=== PATIENT | male | born 1965 | race Caucasian/White ===

== ENCOUNTER 2016-10-05 10:52 | Inpatient (IN) | payer OTHER ==
[2016-10-05] MEDS ORDERED: MORPHINE 2 MG/ML SYRINGE IVP STA ×2 (11:57→13:42)
[2016-10-05] MEDS ORDERED: SODIUM CHLORIDE 0.9% 1,000 ML IV ONE (11:57)
[2016-10-05] MEDS ORDERED: ONDANSETRON 4 MG/2 ML VIAL IVP STA (11:57)
[2016-10-05] MEDS ORDERED: ONDANSETRON 4 MG/2 ML VIAL ONE (11:58)
[2016-10-05] MEDS ORDERED: MORPHINE 2 MG/ML SYRINGE ONE ×2 (11:59→13:44)
[2016-10-05] MEDS ORDERED: PIPERACILLIN/TAZOBACTAM 3.375 GM in SODIUM CHLORIDE 0.9% MINIBAG 100 ML IV STA (13:30)
[2016-10-05] MEDS ORDERED: ONDANSETRON 4 MG/2 ML VIAL IVP PRN (14:11)
[2016-10-05] MEDS ORDERED: oxyCODONE 5 MG TABLET PO PRN (15:05)
[2016-10-05] MEDS ORDERED: ACETAMINOPHEN 325 MG TABLET PO PRN (15:05)
[2016-10-05] MEDS: metroNIDAZOLE 500 MG/100 ML 100 ML IV SCH ×2 (16:07→22:33)
[2016-10-05] MEDS: NS W/20 MEQ KCL 1,000 ML IV SCH (16:07)
[2016-10-05] MEDS: MORPHINE 2 MG/ML SYRINGE IVP PRN ×2 (16:15→23:05)
[2016-10-05] MEDS: SODIUM CHLORIDE FLUSH 0.9% 10 ML SYRINGE IVP PRN ×2 (16:15→23:06)
[2016-10-05] MEDS: PIPERACILLIN/TAZOBACTAM 4.5 GM in SODIUM CHLORIDE 0.9% MINIBAG 100 ML IV SCH (18:27)
[2016-10-05] MEDS: SODIUM CHLORIDE FLUSH 0.9% 10 ML SYRINGE IVP SCH (22:34)
[2016-10-06] MEDS: PIPERACILLIN/TAZOBACTAM 4.5 GM in SODIUM CHLORIDE 0.9% MINIBAG 100 ML IV SCH ×3 (00:57→17:42)
[2016-10-06] MEDS: NS W/20 MEQ KCL 1,000 ML IV SCH ×2 (04:28→16:30)
[2016-10-06] MEDS: metroNIDAZOLE 500 MG/100 ML 100 ML IV SCH ×4 (05:16→22:51)
[2016-10-06] MEDS: SODIUM CHLORIDE FLUSH 0.9% 10 ML SYRINGE IVP SCH ×3 (05:21→22:29)
[2016-10-06] MEDS: MORPHINE 2 MG/ML SYRINGE IVP PRN ×3 (05:21→21:02)
[2016-10-06] MEDS: ENOXAPARIN 40 MG/0.4 ML SYRINGE SUBQ SCH (09:17)
[2016-10-06] MEDS: POLYETHYLENE GLYCOL 3350 17 GM PACKET PO SCH (11:02)
[2016-10-07] MEDS: PIPERACILLIN/TAZOBACTAM 4.5 GM in SODIUM CHLORIDE 0.9% MINIBAG 100 ML IV SCH ×3 (00:13→21:27)
[2016-10-07] MEDS: metroNIDAZOLE 500 MG/100 ML 100 ML IV SCH ×4 (04:37→23:02)
[2016-10-07] MEDS: SODIUM CHLORIDE FLUSH 0.9% 10 ML SYRINGE IVP SCH ×3 (05:46→21:28)
[2016-10-07] MEDS: NS W/20 MEQ KCL 1,000 ML IV SCH ×2 (06:59→22:58)
[2016-10-07] MEDS: POLYETHYLENE GLYCOL 3350 17 GM PACKET PO SCH (08:46)
[2016-10-07] MEDS: ENOXAPARIN 40 MG/0.4 ML SYRINGE SUBQ SCH (08:46)
[2016-10-08] MEDS: NS W/20 MEQ KCL 1,000 ML IV SCH (01:22)
[2016-10-08] MEDS: PIPERACILLIN/TAZOBACTAM 4.5 GM in SODIUM CHLORIDE 0.9% MINIBAG 100 ML IV SCH ×2 (03:48→10:07)
[2016-10-08] MEDS: metroNIDAZOLE 500 MG/100 ML 100 ML IV SCH ×2 (03:53→10:58)
[2016-10-08] MEDS: SODIUM CHLORIDE FLUSH 0.9% 10 ML SYRINGE IVP SCH (06:02)
[2016-10-08] MEDS ORDERED: IOPAMIDOL-300 50 ML VIAL PO ONE (09:44)
[2016-10-08] MEDS ORDERED: IOPAMIDOL-300 100 ML VIAL IVP ONE (09:44)
[2016-10-08] MEDS: POLYETHYLENE GLYCOL 3350 17 GM PACKET PO SCH (10:09)
[2016-10-08] MEDS: ENOXAPARIN 40 MG/0.4 ML SYRINGE SUBQ SCH (10:10)
== END 2016-10-08 12:52 | disposition home or self-care (01) | DRG 392 ==
DX: K57.20 Diverticulitis of large intestine with perforation and abscess without bleeding (principal); F17.210 Nicotine dependence, cigarettes, uncomplicated

== ENCOUNTER 2019-07-28 08:45 | Outpatient (CLI) | payer OTHER ==
[2019-07-28 17:26] LABS: HGB - HEMOGLOBIN 15.3 g/dL (14.0-18.0); MEAN CORPUSCULAR HEMOGLOBIN 30.2 pg (27.0-31.0); MEAN CORPUSCULAR HGB CONC 32.8 g/dL (32.0-36.0); MEAN CORPUSCULAR VOLUME 92.1 fL (80.0-94.0); MEAN PLATELET VOLUME 11.5 fL (7.4-11.4); RED BLOOD COUNT 5.07 10^6/uL (4.70-6.10); RED CELL DISTRIBUTION WIDTH 12.8 % (12.0-15.0); WHITE BLOOD COUNT 9.3 x10^3/uL (4.8-10.8)
[2019-07-28 17:46] LABS: ALBUMIN 4.2 g/dL (3.2-5.5); ALBUMIN/GLOBULIN RATIO 1.4 (1.0-2.2); ALKALINE PHOSPHATASE 57 IU/L (42-121); ALT ALANINE AMINOTRANSFERASE 17 IU/L (10-60); AST ASPARTATE AMINOTRANSFERASE 21 IU/L (10-42); BILIRUBIN,TOTAL 1.2 mg/dL (0.2-1.0); BUN - BLOOD UREA NITROGEN 21 mg/dL (6-20); CARBON DIOXIDE - CO2 27 mmol/L (21-32); CHLORIDE 106 mmol/L (101-111); CHOL/HDL RATIO 4.9 (<5.0); CHOLESTEROL 263 mg/dL; CREATININE 0.9 mg/dL (0.6-1.2); GFR - MDRD 88 (>89); GLUCOSE 113 mg/dL (70-100); HDL CHOLESTEROL 54 mg/dL; LDL CHOLESTEROL,CALCULATED 196 mg/dL; LDL/HDL RATIO 3.6 (<3.6); SODIUM 139 mmol/L (135-145); TOTAL PROTEIN 7.1 g/dL (6.7-8.2); VLDL CHOLESTEROL 13 mg/dL
== END 2019-07-28 08:46 | disposition home or self-care (01) ==
LOC: LAB.S 08:45
PROVIDERS: ATTEND Internal Medicine
DX: Z00.00 Encounter for general adult medical examination without abnormal findings (principal); R53.83 Other fatigue
CPT/HCPCS: 36415; 80053; 80061; 83721; 84443; 85027

== ENCOUNTER 2020-09-13 10:36 | Emergency (ER) | payer OTHER ==
[2020-09-13 10:56] LABS: GLUCOSE, URINE (UA) NEGATIVE (NEGATIVE); KETONES,URINE (UA) TRACE mg/dL (NEGATIVE); LEUKOCYTE ESTERASE, URINE NEGATIVE (NEGATIVE); NITRITE,URINE NEGATIVE (NEGATIVE); OCCULT BLOOD,URINE MODERATE (NEGATIVE); PH,URINE 5.5 PH (5.0-7.5); PROTEIN,URINE 30 mg/dL (NEGATIVE); UROBILINOGEN,URINE 1 (NORMAL) E.U./dL (NORMAL)
[2020-09-13 10:59] LABS: BASOPHILS # (AUTO) 0.1 10^3/uL (0.0-0.1); BASOPHILS % (AUTO) 0.5 %; EOSINOPHILS % (AUTO) 0.3 %; HGB - HEMOGLOBIN 17.4 g/dL (14.0-18.0); LYMPHOCYTES # (AUTO) 1.6 10^3/uL (1.5-3.5); LYMPHOCYTES % (AUTO) 14.1 %; MEAN CORPUSCULAR HEMOGLOBIN 30.4 pg (27.0-31.0); MEAN CORPUSCULAR HGB CONC 34.1 g/dL (32.0-36.0); MEAN CORPUSCULAR VOLUME 89.3 fL (80.0-94.0); MEAN PLATELET VOLUME 10.2 fL (7.4-11.4); MONOCYTES # (AUTO) 0.9 10^3/uL (0.0-1.0); MONOCYTES % (AUTO) 7.9 %; NEUTROPHILS # (AUTO) 8.8 10^3/uL (1.5-6.6); NEUTROPHILS % (AUTO) 76.6 %; PLT - PLATELET COUNT 197 10^3/uL (130-450); RED BLOOD COUNT 5.72 10^6/uL (4.70-6.10); RED CELL DISTRIBUTION WIDTH 12.2 % (12.0-15.0); WHITE BLOOD COUNT 11.5 x10^3/uL (4.8-10.8)
[2020-09-13 11:00] LABS: BILIRUBIN,URINE NEGATIVE (NEGATIVE); CLARITY,URINE CLEAR (CLEAR); ICTOTEST,URINE NEGATIVE
[2020-09-13 11:09] LABS: ALBUMIN 4.7 g/dL (3.2-5.5); ALBUMIN/GLOBULIN RATIO 1.4 (1.0-2.2); BILIRUBIN,TOTAL 1.8 mg/dL (0.2-1.0); CALCIUM 9.6 mg/dL (8.5-10.3); CREATININE 1.1 mg/dL (0.6-1.2); TOTAL PROTEIN 8.1 g/dL (6.7-8.2)
[2020-09-13 11:11] LABS: BACTERIA,URINE Few /HPF (None Seen); MUCUS,URINE Moderate Strands; RBC,URINE 0-5 /HPF (0-5); SQUAMOUS EPITHELIAL CELL,UR FEW Squamous (<= Few)
[2020-09-13] MEDS ORDERED: LACTATED RINGERS 1,000 ML IV STA (11:11)
[2020-09-13] MEDS ORDERED: KETOROLAC 15 MG/ML VIAL IVP STA (11:11)
[2020-09-13] MEDS ORDERED: IOVERSOL 320 100 ML VIAL IVP ONE ×2 (11:29→12:04)
--- NOTE | 2020-09-13 12:12 | CT Report ---
PROCEDURE: Abdomen/Pelvis W INDICATIONS: hematuria and abdominal pain CONTRAST: IV CONTRAST: Optiray 320 ml: 100 PO CONTRAST: *NO PO CONTRAST TECHNIQUE: After the administration of intravenous and oral contrast, 5 mm thick sections acquired from the diap hragms to the symphysis. 5 mm thick coronal and sagittal reformats were acquired. For radiation dos e reduction, the following was used: automated exposure control, adjustment of mA and/or kV accordin g to patient size. COMPARISON: CT abdomen pelvis 10/08/2016, 10/05/2016. FINDINGS: Image quality: Excellent. ABDOMEN: Lung bases: There is mild dependent atelectasis bilaterally. Heart size is normal. Solid organs: There is mild focal fatty infiltration in the anterior left hepatic lobe. Gallbladder a ppears within normal limits without calcified gallstones. There is a phrygian cap in the gallbladder fundus. Biliary system is non dilated. The spleen is normal in size. Pancreas enhances normally with out peripancreatic fat stranding or fluid collections. No adrenal nodules. Kidneys demonstrate no h ydronephrosis. Peritoneum and bowel: Small bowel loops demonstrate normal wall thickness and caliber. The appendix i s normal in appearance. There is colonic diverticulosis with associated diverticular wall thickening and inflammatory fat stranding in the sigmoid colon consistent with acute diverticulitis. There is al so associated mild segmental wall thickening in the sigmoid colon consistent with an associated mild colitis. No macroscopic free air or diverticular abscess. No free fluid. Nodes and vessels: No retroperitoneal or mesenteric adenopathy by size criteria. Aorta and inferior vena cava are normal in size. Miscellaneous: No ventral hernias. PELVIS: Genitourinary: The urinary bladder is partially distended. Miscellaneous: No inguinal hernias or adenopathy. Bones: No suspicious bony lesions. No vertebral body compression fractures. IMPRESSION: 1. Sigmoid diverticulitis without evidence of diverticular abscess or macroscopic free air. Reviewed by: Jeffry Rubio MD on 09/13/2020 12:11 PM [facility] Approved by: Jeffry Rubio MD on 09/13/2020 12:11 PM PST Station ID: [id number]
--- NOTE | 2020-09-13 13:10 | ED Physician Documentation ---
PD HPI ABD PAIN - Stated complaint Stated Complaint: ABD PX - Chief complaint Chief Complaint: Abd Pain - History obtained from History obtained from: Patient - Additional information Additional information: 55-year-old man with past medical history of diverticulitis presents with suprapubic and bilateral lower quadrant pain that is nonradiating, gradual in onset over the course of 3 days, moderate severity, aching, nonradiating, associated with stringy stools, most recent this morning. Also with subjective fever and chills with subjective fever T-max 101 2 days ago. Afebrile at home today. Patient denies nausea or vomiting and states that his stools have been solid but stringy with dyschezia. No PSH. Review of Systems Ten Systems: 10 systems reviewed and negative Constitutional: reports: Fever, Chills GI: reports: Abdominal Pain. denies: Nausea, Vomiting : denies: Dysuria PD PAST MEDICAL HISTORY - Past Medical History Past Medical History: Yes Cardiovascular: None Respiratory: None Endocrine/Autoimmune: None GI: Diverticulitis : None HEENT: None Psych: None Musculoskeletal: None Derm: None - Past Surgical History Past Surgical History: Yes Ortho: Arthroscopic surgery HEENT: Tonsil/Adenoidectomy - Present Medications Home Medications: Ambulatory Orders Medication Instructions Recorded Confirmed Ciprofloxacin [Cipro] 500 mg PO Q12H 10 Days #20 tablet 09/13/20 metroNIDAZOLE [Flagyl] 500 mg PO TID 10 Days #30 tablet 09/13/20 - Allergies Allergies/Adverse Reactions: Allergies Allergy/AdvReac Type Severity Reaction Status Date / Time No Known Drug Allergies Allergy Verified 09/13/20 10:41 - Social History Does the pt smoke?: Yes Smoking Status: Current every day smoker PD ED PE NORMAL - Vitals Vital signs reviewed: Yes - General General: Alert and oriented X 3 - HEENT HEENT: Atraumatic, PERRL, EOMI - Neck Neck: Supple, no meningeal sign - Cardiac Cardiac: RRR - Respiratory Respiratory: No respiratory distress, Clear bilaterally - Abdomen Abdomen: Non tender, Non distended - Male Male : Deferred - Rectal Rectal: Deferred - Back Back: No CVA TTP - Derm Derm: Normal color, Warm and dry - Extremities Extremities: No deformity - Neuro Neuro: Alert and oriented X 3 - Psych Psych: Normal mood, Normal affect Results - Vitals Vitals: Vital Signs - 24 hr 09/13/20 10:39 Temperature 36.9 C Heart Rate 84 Respiratory 16 Rate Blood Pressure 155/91 H O2 Saturation 97 Oxygen O2 Source Room air - Labs Labs: Laboratory Tests 09/13/20 09/13/20 09/13/20 10:45 10:53 10:53 WBC 11.5 H RBC 5.72 Hgb 17.4 Hct 51.1 MCV 89.3 MCH 30.4 MCHC 34.1 RDW 12.2 Plt Count 197 MPV 10.2 Neut # (Auto) 8.8 H Lymph # (Auto) 1.6 [place] # (Auto) 0.9 Eos # (Auto) 0.0 Baso # (Auto) 0.1 Absolute Nucleated RBC 0.00 Nucleated RBC % 0.0 Sodium 131 L Potassium 3.6 Chloride 97 L Carbon Dioxide 23 Anion Gap 11.0 BUN 19 Creatinine 1.1 Estimated GFR (MDRD) 70 L Glucose 116 H Calcium 9.6 Total Bilirubin 1.8 H AST 21 ALT 17 Alkaline Phosphatase 66 Total Protein 8.1 Albumin 4.7 Globulin 3.4 Albumin/Globulin Ratio 1.4 Lipase 21 L Urine Color DARK YELLOW Urine Clarity CLEAR Urine pH 5.5 Ur Specific [place] >=1.030 H Urine Protein 30 H Urine Glucose (UA) NEGATIVE Urine Ketones TRACE Urine Occult Blood MODERATE H Urine Nitrite NEGATIVE Urine Bilirubin NEGATIVE Urine Urobilinogen 1 (NORMAL) Ur Leukocyte Esterase NEGATIVE Urine RBC 0-5 Urine WBC 4-5 Ur Squamous Epith Cells FEW Squamous Urine Bacteria Few Urine Mucus Moderate Strands Ur Microscopic Review INDICATED Urine Culture Comments NOT INDICATED PD MEDICAL DECISION MAKING - ED course ED course: 55-year-old man presented with mild case of diverticulitis with mildly elevated white count, normal vital signs, able to tolerate p.o. and with pain controlled with IV Toradol. Given that he was having fevers I will prescribe antibiotics and give strict return precautions. Patient does not currently have a primary doctor but says he will make an appointment with his 's doctor this week. I emphasized that it is important that he repeat his urinalysis and potentially have further testing in order to rule out malignancy. Departure - Departure Disposition: 01 Home, Self Care Clinical Impression: Diverticulitis, Hematuria Condition: Good Instructions: Diverticulitis Dc Prescriptions: Ciprofloxacin [Cipro] 500 mg PO Q12H 10 Days #20 tablet metroNIDAZOLE [Flagyl] 500 mg PO TID 10 Days #30 tablet Comments: You were seen in the emergency department for diverticulitis. You also have blood in your urine which needs to be followed up by your primary doctor. Your CT did not show evidence of stones or cancer but it needs to be investigated further. Take your antibiotics as prescribed and return to the emergency department for any new or worsening symptoms. Follow-up with your primary doctor this week
[2020-09-13 13:27] VITALS: BP 109/75
== END 2020-09-13 13:31 | disposition home or self-care (01) ==
LOC: ED 10:36
DX: K57.32 Diverticulitis of large intestine without perforation or abscess without bleeding (principal); R31.9 Hematuria, unspecified; F17.200 Nicotine dependence, unspecified, uncomplicated
CPT/HCPCS: 36415; 80053; 81001; 81003; 83690; 85025; 87086

== ENCOUNTER 2020-09-13 20:46 | Inpatient (IN) | payer OTHER ==
[2020-09-13] MEDS ORDERED: HYDROmorphone 1 MG/ML CARPUJECT IVP STA (21:14)
[2020-09-13] MEDS ORDERED: ONDANSETRON 4 MG/2 ML VIAL IVP STA (21:14)
[2020-09-13] MEDS ORDERED: SODIUM CHLORIDE 0.9% 1,000 ML IV STA (21:14)
--- NOTE | 2020-09-13 21:21 | ED Physician Documentation ---
History of Present Illness - Stated complaint Stated Complaint: ABD PX/VOMITING - Chief complaint Chief Complaint: Abd Pain - Additonal information Additional information: 55-year-old male return to the emergency department for uncontrolled abdominal pain and vomiting. Seen by my colleague earlier today and underwent a CT scan that showed diverticulitis without evidence of abscess or macroscopic free air. He was discharged with a prescription for Cipro and Flagyl. He reports that he went home and to fill the prescriptions for the medications. Shortly after taking the Cipro he began vomiting uncontrollably. He reports that the vomiting increases the pain in his abdomen therefore he returns to the emergency department. He does report a fever since being discharged home up to 102. Denies any bloody stools. Patient was seen at this hospital in 2017 for similar. At that time a CT scan showed colitis with 3 cm abscess formation. He was admitted to the hospital and managed with IV antibiotics. He did not require surgical drainage. Review of Systems Constitutional: reports: Fever Eyes: reports: Reviewed and negative Ears: reports: Reviewed and negative Nose: reports: Reviewed and negative Throat: reports: Reviewed and negative Cardiac: reports: Reviewed and negative Respiratory: reports: Reviewed and negative GI: reports: Abdominal Pain, Nausea, Vomiting. denies: Bloody / black stool : reports: Reviewed and negative Skin: reports: Reviewed and negative Musculoskeletal: reports: Reviewed and negative PD PAST MEDICAL HISTORY - Past Medical History Cardiovascular: None Respiratory: None Endocrine/Autoimmune: None GI: Diverticulitis : None HEENT: None Psych: None Musculoskeletal: None Derm: None - Past Surgical History Past Surgical History: Yes Ortho: Arthroscopic surgery HEENT: Tonsil/Adenoidectomy - Present Medications Home Medications: Ambulatory Orders Medication Instructions Recorded Confirmed Ciprofloxacin [Cipro] 500 mg PO Q12H 10 Days #20 tablet 09/13/20 metroNIDAZOLE [Flagyl] 500 mg PO TID 10 Days #30 tablet 09/13/20 - Allergies Allergies/Adverse Reactions: Allergies Allergy/AdvReac Type Severity Reaction Status Date / Time No Known Drug Allergies Allergy Verified 09/13/20 20:48 - Social History Does the pt smoke?: Yes Smoking Status: Current every day smoker PD ED PE EXPANDED - General General: Alert, In Pain - Cardiac Cardiac: Regular Rate, Regular Rhythm, Radial strong equal, Cap refill < 2 sec. No: Murmur Present - Respiratory Respiratory: Clear to ausultation caren. No: Distress, Labored - Abdomen Abdomen: Normal Bowel sounds, Tender to palpation (Significant tenderness to the left upper and left lower quadrant with guarding. No rebound) - Derm Derm: Normal color, Warm and dry. No: Rash - Neuro Neuro: Alert and Oriented X 3, CNII-XII intact Results - Vitals Vitals: Vital Signs - 24 hr 09/13/20 09/13/20 09/13/20 20:48 21:10 22:29 Temperature 37.6 C 37.6 C 37.9 C Heart Rate 88 88 77 Respiratory 16 16 18 Rate Blood Pressure 142/98 H 142/98 H 143/84 H O2 Saturation 98 98 98 Oxygen O2 Source Room air - Labs Labs: Laboratory Tests 09/13/20 09/13/20 09/13/20 21:33 21:44 21:54 WBC 17.7 H RBC 5.32 Hgb 15.8 Hct 46.2 MCV 86.8 MCH 29.7 MCHC 34.2 RDW 12.1 Plt Count 180 MPV 10.3 Neut # (Auto) 15.9 H Lymph # (Auto) 0.7 L [place] # (Auto) 1.0 Eos # (Auto) 0.0 Baso # (Auto) 0.1 Absolute Nucleated RBC 0.00 Nucleated RBC % 0.0 Sodium 135 Potassium 3.8 Chloride 100 L Carbon Dioxide 23 Anion Gap 12.0 BUN 24 H Creatinine 1.1 Estimated GFR (MDRD) 70 L Glucose 132 H Lactic Acid 0.9 Calcium 9.0 Total Bilirubin 0.9 AST 18 ALT 18 Alkaline Phosphatase 58 Total Protein 6.9 Albumin 3.8 Globulin 3.1 Albumin/Globulin Ratio 1.2 Lipase 25 - Rads (name of study) CT abd Radiology: Final report received (acute diverticulitis with microperforation, but no abscess. small bowel ileus) PD MEDICAL DECISION MAKING - ED course Complexity details: reviewed old records, reviewed results, re-evaluated patient, considered differential, d/w patient ED course: 55-year-old male return to the emergency department for uncontrolled left lower abdominal pain and vomiting. Seen earlier today for similar and found to have diverticulitis without perforation or abscess. He did fill the prescription for the antibiotics and took the Cipro but then began to vomit which increased his pain. Here on return to the emergency department I initially attempted symptom control with Dilaudid and Zofran. I did repeat his CBC to ensure no rise in white count however unfortunately it did show a new leukocytosis at 17K. lactic acid and chemistry panel do not show not significant abnormalities. Pt does not present as septic. However a repeat Ct of his abdomen is pending. IV cipro and flagyl ordered here in the ED 2204: I have spoken with nocturnal hospitalist Dr. hannah. We discussed the representation for left-sided belly pain accompanied by fevers and new leukocytosis. Patient will likely need to be admitted to the hospital for IV antibiotics and management. 2234: Pt signed out to noc colleague Dr. baker to f/u CT results and ensure no need for surgical consult. However Dr. Hannah has agreed to medicine admission for acute diverticulitis Departure - Departure Disposition: 66 [facility] DC/[facility] Clinical Impression: Diverticulitis
[2020-09-13] MEDS ORDERED: metroNIDAZOLE 500 MG/100 ML 500 MG/100 ML BAG IV ONE (21:27)
[2020-09-13] MEDS ORDERED: CIPROFLOXACIN 400 MG/200 ML 400 MG/200 ML BAG IV STA (21:27)
[2020-09-13 21:35] LABS: BASOPHILS # (AUTO) 0.1 10^3/uL (0.0-0.1); BASOPHILS % (AUTO) 0.3 %; EOSINOPHILS % (AUTO) 0.1 %; HCT - HEMATOCRIT 46.2 % (42.0-52.0); HGB - HEMOGLOBIN 15.8 g/dL (14.0-18.0); LYMPHOCYTES # (AUTO) 0.7 10^3/uL (1.5-3.5); LYMPHOCYTES % (AUTO) 3.8 %; MEAN CORPUSCULAR HEMOGLOBIN 29.7 pg (27.0-31.0); MEAN CORPUSCULAR HGB CONC 34.2 g/dL (32.0-36.0); MEAN CORPUSCULAR VOLUME 86.8 fL (80.0-94.0); MEAN PLATELET VOLUME 10.3 fL (7.4-11.4); MONOCYTES % (AUTO) 5.4 %; NEUTROPHILS # (AUTO) 15.9 10^3/uL (1.5-6.6); PLT - PLATELET COUNT 180 10^3/uL (130-450); RED BLOOD COUNT 5.32 10^6/uL (4.70-6.10); RED CELL DISTRIBUTION WIDTH 12.1 % (12.0-15.0); WHITE BLOOD COUNT 17.7 x10^3/uL (4.8-10.8)
[2020-09-13] MEDS ORDERED: IOVERSOL 320 100 ML VIAL IVP ONE ×2 (22:00→22:32)
[2020-09-13 22:08] LABS: ALBUMIN 3.8 g/dL (3.2-5.5); ALBUMIN/GLOBULIN RATIO 1.2 (1.0-2.2); BILIRUBIN,TOTAL 0.9 mg/dL (0.2-1.0); CREATININE 1.1 mg/dL (0.6-1.2); POTASSIUM 3.8 mmol/L (3.5-5.0); TOTAL PROTEIN 6.9 g/dL (6.7-8.2)
--- NOTE | 2020-09-13 22:47 | HISTORY & PHYSICAL EXAMINATION ---
Chief Complaint - Chief Complaint Chief Complaint: abdominal pain, nausea, vomiting, fever History of Present Illness - Admitted From Admitted From:: [facility] ED - History Obtained From Records Reviewed: yes History obtained from: patient - History of Present Illness HPI Comment/Other: Patient is a 55-year-old male with medical history significant for diverticulitis with perforation 4 years ago. He is not on any other medications. He presented to the ED today morning with Abdominal pain. His symptoms have been going on for the past 2 days. He was diagnosed with diverticulitis after CT scan was done in the ED. He was given a prescription for oral antibiotics. However he went home and the pain got worse. Worsening pain seem to coincide with when he was trying to have a bowel movement. He also experienced a temperature of 102 Fahrenheit and chills. He took the oral antibiotics and within 30 minutes vomited. He returned to the ED this evening where work-up showed that his white blood cell count had increased from 11 up to 17. Repeat CT scan showed sigmoid diverticulitis and a larger area of microperforation. There was no free air noted. It also raised the possibility of ileus but no obstruction. As a result the patient was presented for admission for further treatment. He denies chest pain, dyspnea. History - Past Medical History Cardiovascular: reports: None Respiratory: reports: None Endocrine/Autoimmune: reports: None GI: reports: Diverticulitis : reports: None HEENT: reports: None Psych: reports: None Musculoskeletal: reports: None Derm: reports: None MRSA Hx?: No - Past Surgical History Ortho: reports: Arthroscopic surgery HEENT: reports: Tonsil/Adenoidectomy - Family & Social History Family History Comment/Other: Family history is significant for diabetes, cardiac disease specifically [place] and his mother several different kinds of cancer in her life. This cancers were unspecified. Living arrangement: At home Social History Notes: He was born in [place] [facility], raised in the area, moved out to [place] near [place] for 10 years. He graduated from high school in the small town and went to [employer] for 1 year. He then lived in [place], [place] for a year and went to the [employer]. 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 Eventually he joined [employer]. He smokes every day only 1 pack a day for many years. He also smokes marijuana occasionally Denies any alcohol use. He lives with his , daughter and grandchildren. - POLST Patient has POLST: No POLST Status: Full Code Meds/Allgy - Home Medications Home Medications: Ambulatory Orders Medication Instructions Recorded Confirmed Ciprofloxacin [Cipro] 500 mg PO Q12H 10 Days #20 tablet 09/13/20 metroNIDAZOLE [Flagyl] 500 mg PO TID 10 Days #30 tablet 09/13/20 - Allergies Allergies/Adverse Reactions: Allergies Allergy/AdvReac Type Severity Reaction Status Date / Time No Known Drug Allergies Allergy Verified 09/13/20 20:48 Review of Systems - Constitutional Constitutional: reports: Fever, Chills. denies: Fatigue, Weakness - Eyes Eyes: denies: Pain, Dipolpia - Ears, Nose & Throat Ears, Nose & Throat: denies: Ear pain, Vertigo, Sore throat - Cardiovascular Cariovascular: denies: Irregular heart rate, Palpitations, Chest pain, Edema, Lightheadedness, Syncope, Exertional dyspnea - Respiratory Respiratory: denies: Wheezing, SOB at rest, SOB with exertion - Gastrointestinal Gastrointestinal: reports: Abdominal pain, Nausea, Vomiting. denies: Constipation, Diarrhea, Coffee grounds emesis, Reflux/heartburn - Genitourinary Genitourinary: denies: Dysuria, Frequency, Urgency, Hematuria, Incontinence - Musculoskeletal Musculoskeletal: denies: Muscle pain, Back pain, Muscle aches, Stiffness - Integumentary Integumentary: denies: Rash, Pruritis, Lesions - Neurological Neurological: denies: General weakness, Focal weakness, Headache, Dizziness - Psychiatric Psychiatric: denies: Depression, Anxiety - Endocrine Endocrine: denies: Polyuria, Polydypsia - Hematologic/Lymphatic Hematologic/Lymphatic: denies: Anemia, Bruising, Petechiae Prior Level of Functionality: He is independent of activities of daily living Exam - Vital Signs Vital Signs: Vital Signs x48h Temp Pulse Resp BP Pulse Ox 09/13/20 22:29 37.9 C 77 18 143/84 H 98 09/13/20 21:10 37.6 C 88 16 142/98 H 98 09/13/20 20:48 37.6 C 88 16 142/98 H 98 - Physical Exam General Appearance: positive: Moderate distress, Severe distress Eyes Bilateral: positive: PERRL, EOMI ENT: positive: No signs of dehydration Neck: positive: No JVD, Trachea midline Respiratory: positive: Chest non-tender, No respiratory distress, Breath sounds nml. negative: Wheezes, Rales, Rhonchi Cardiovascular: positive: Regular rate & rhythm, No murmur Abdomen: positive: Nml bowel sounds, Tenderness, Guarding Back: positive: Nml inspection Skin: positive: No rash, Warm, Dry Extremities: positive: Non-tender, Full ROM, Nml appearance, No pedal edema Neurologic/Psychiatric: positive: Oriented x3, Mood/affect nml Conclusion/Plan - Problem List (1) Diverticulitis Conclusion/Plan: Patient failed outpatient management with oral antibiotics of Cipro and Flagyl. Patient's white blood cell count went from 11 earlier today to 17 tonight. Patient had reported temperature of 102F Patient has been started on Cipro and Flagyl IV. IV hydration with normal saline at 100 mils per hour. Pain management with Tylenol, oxycodone and oral Dilaudid. Repeat CT of the abdomen pelvis showed sigmoid diverticulitis with a larger area of microperforation but no free air seen. - Lab Results Fish Bones: 09/14/20 04:36 09/14/20 04:36 Core Measures - Anticipated LOS I expect patient to be DC'd or transferred within 96 hours.: Yes - DVT/VTE - Prophylaxis VTE/DVT Device ordered at admit?: Yes VTE/DVT Prophylaxis med ordered at admit?: Yes
[2020-09-13] MEDS: SODIUM CHLORIDE 0.9% 1,000 ML IV SCH ×2 (23:16→23:28)
[2020-09-14] MEDS: HYDROmorphone 0.5 MG/0.5 ML SYRINGE IVP PRN ×3 (00:28→08:00)
[2020-09-14 01:48] LABS: B. PARAPERTUSSIS- RESP PCR PAN NOT DETECTED; B. PERTUSSIS- RESP PCR PANEL NOT DETECTED; C. PNEUMONIAE- RESP PCR PANEL NOT DETECTED; CORONAVIRUS 229E-RESP PCR NOT DETECTED; CORONAVIRUS HKU1-RESP PCR NOT DETECTED; CORONAVIRUS NL63-RESP PCR NOT DETECTED; CORONAVIRUS OC43-RESP PCR NOT DETECTED; HUMAN METAPNEUMOVIRUS NOT DETECTED; INFLUENZA A- RESP PCR PANEL NOT DETECTED; INFLUENZA B - RESP PCR PANEL NOT DETECTED; M. PNEUMONIAE- RESP PCR PANEL NOT DETECTED; PARAINFLUENZA VIRUS 1 NOT DETECTED; PARAINFLUENZA VIRUS 2 NOT DETECTED; PARAINFLUENZA VIRUS 3 NOT DETECTED; PARAINFLUENZA VIRUS 4 NOT DETECTED; RHINOVIRUS/ENTEROVIRUS NOT DETECTED; RSV- RESP PCR PANEL NOT DETECTED; SARS-CoV-2 -RESP PCR PANEL NOT DETECTED
[2020-09-14] MEDS: SODIUM CHLORIDE FLUSH 0.9% 10 ML SYRINGE IVP SCH ×3 (03:30→16:29)
[2020-09-14] MEDS: ONDANSETRON 4 MG/2 ML VIAL IVP PRN ×2 (03:41→12:30)
[2020-09-14 05:24] LABS: BASOPHILS % (AUTO) 0.3 %; EOSINOPHILS % (AUTO) 0.3 %; HCT - HEMATOCRIT 43.5 % (42.0-52.0); HGB - HEMOGLOBIN 14.4 g/dL (14.0-18.0); LYMPHOCYTES % (AUTO) 6.5 %; MEAN CORPUSCULAR HEMOGLOBIN 29.6 pg (27.0-31.0); MEAN CORPUSCULAR HGB CONC 33.1 g/dL (32.0-36.0); MEAN CORPUSCULAR VOLUME 89.5 fL (80.0-94.0); MEAN PLATELET VOLUME 10.9 fL (7.4-11.4); MONOCYTES % (AUTO) 6.2 %; NEUTROPHILS % (AUTO) 86.2 %; PLT - PLATELET COUNT 157 10^3/uL (130-450); RED BLOOD COUNT 4.86 10^6/uL (4.70-6.10); RED CELL DISTRIBUTION WIDTH 12.2 % (12.0-15.0); WHITE BLOOD COUNT 20.2 x10^3/uL (4.8-10.8)
[2020-09-14 05:38] LABS: CALCIUM 8.5 mg/dL (8.5-10.3); POTASSIUM 3.9 mmol/L (3.5-5.0)
[2020-09-14 05:50] LABS: ABNORMAL LYMPHS % (MANUAL) 0 %; BAND NEUTROPHILS % (MANUAL) 0 %
[2020-09-14 06:17] LABS: LYMPHOCYTES % (MANUAL) 5 %; NEUTROPHILS # (MANUAL) 18.2 10^3/uL (1.5-6.6)
[2020-09-14 06:19] LABS: DIFFERENTIAL COMMENT MANUAL DIFFERENTIAL; PLATELET ESTIMATE, MANUAL NORMAL (130-450,000) (NORMAL); PLATELET MORPHOLOGY NORMAL APPEARANCE (NORMAL); RBC MORPHOLOGY (MULTIPLE) NORMAL APPEARANCE (NORMAL); WBC MORPHOLOGY (MULTIPLE) NORMAL APPEARANCE (NORMAL)
[2020-09-14] MEDS: PANTOPRAZOLE 40 MG TABLET PO SCH (06:42)
[2020-09-14] MEDS: SODIUM CHLORIDE 0.9% 1,000 ML IV SCH ×2 (08:00→20:33)
[2020-09-14] MEDS: metroNIDAZOLE 500 MG/100 ML 500 MG/100 ML BAG IV SCH ×2 (08:10→16:25)
[2020-09-14] MEDS: ENOXAPARIN 40 MG/0.4 ML SYRINGE SUBQ SCH (08:16)
--- NOTE | 2020-09-14 08:37 | CT Report ---
PROCEDURE: Abdomen/Pelvis W INDICATIONS: worsenign pain; r/o rupture CONTRAST: IV CONTRAST: Optiray 320 ml: 100 PO CONTRAST: *NO PO CONTRAST TECHNIQUE: After the administration of nonionic IV contrast, 5 mm thick sections acquired from the diaphragms to the symphysis. 5 mm thick coronal and sagittal reformats were acquired. For radiation dose reducti on, the following was used: automated exposure control, adjustment of mA and/or kV according to jone ent size. COMPARISON: Prior CT on 09/13/2020. Prior CT examinations to 2317, 10/05/2016, and 05/29/2013. FINDINGS: Image quality: Excellent. ABDOMEN: Lung bases: Mild dependent atelectasis can be seen. Heart size is normal. Solid organs: Liver and spleen are normal in size and enhancement. An accessory splenule is inciden tally noted along the hilum of the primary spleen. Gallbladder wall does not appear thickened. B iliary system is non dilated. Pancreas enhances normally. No adrenal nodules. Kidneys demonstrate normal size and enhancement, without hydronephrosis. Peritoneum and bowel: There is abnormal wall thickening seen involving the sigmoid colon, with surro unding moderate inflammatory change. There is extraluminal gas seen just superior to the sigmoid colo n, with a gas collection measuring up to 3.2 cm, as on series 6 image 35. No significant extraluminal fluid can be seen. No well-developed abscess collection can be seen. No other areas of bowel wall thickening can be seen. The appendix is well-seen and is normal. Mildly prominent loops of small bowel are seen. Nodes and vessels: No retroperitoneal or mesenteric adenopathy by size criteria. Aorta and inferior vena cava are normal in size. Atherosclerotic calcification is seen. Miscellaneous: No ventral hernias. PELVIS: Genitourinary: Bladder wall thickness is normal. Miscellaneous: No inguinal hernias or adenopathy. Bones: No suspicious bony lesions. No vertebral body compression fractures. Mild dextroconvex scol iotic curvature is seen. Age-appropriate degenerative changes are seen. IMPRESSION: Worsening sigmoid diverticulitis compared to the examination performed earlier in the day, now with p erforation with extraluminal gas seen. No well-formed abscess collection is seen. Mildly prominent loops of small bowel are seen, which are attributed to ileus. Incidental note is made of: Accessory splenule Mild dextroconvex scoliotic curvature Note: No significant discrepancy from the preliminary report. Reviewed by: Kimani Soto MD on 09/14/2020 7:35 AM [facility] Approved by: Kimani Soto MD on 09/14/2020 7:35 AM [facility] Station ID: [id number]
[2020-09-14] MEDS: CIPROFLOXACIN 400 MG/200 ML 400 MG/200 ML BAG IV SCH ×2 (09:40→21:49)
[2020-09-14] MEDS: oxyCODONE 5 MG TABLET PO PRN ×2 (12:14→17:00)
--- NOTE | 2020-09-14 19:07 | PROVIDER PROGRESS NOTE ---
Assessment/Plan - Problem List (1) Diverticulitis Assessment/Plan: Patient's white blood cell count increased from 17-20 today. We will continue Cipro and Flagyl IV. Continue to monitor CBC. Changed Dilaudid to morphine because patient did not tolerate Dilaudid. If patient's abdominal pain worsens will consider repeating a CT of the abd/pelvis and talking to general surgery - Current Meds Current Meds: Current Medications Generic Name Dose Route Start Last Admin Trade Name Freq PRN Reason Stop Dose Admin Enoxaparin Sodium 40 mg 09/14/20 09:00 09/14/20 08:16 Enoxaparin 40 Mg/0.4 Ml Syringe SUBQ 40 mg DAILY ASHWIN Administration Hydromorphone HCl 0.5 mg 09/13/20 22:36 09/14/20 08:00 Hydromorphone 0.5 Mg/0.5 Ml Syringe IVP 0.5 mg Q2H PRN Administration Pain 8 to 10 Sodium Chloride 1,000 mls @ 100 mls/hr 09/13/20 23:00 09/14/20 19:00 Normal Saline 0.9% IV 100 mls/hr .Q10H ASHWIN Infusion Metronidazole 500 mg in 100 mls @ 100 mls/hr 09/14/20 08:00 09/14/20 17:25 Flagyl 500 Mg/100 Ml IV Infused Q8H ASHWIN Infusion Ciprofloxacin 400 mg in 200 mls @ 200 mls/hr 09/14/20 09:00 09/14/20 10:40 Cipro 400 Mg/200 Ml IV Infused Q12H ASHWIN Infusion Ondansetron HCl 4 mg 09/13/20 22:36 09/14/20 12:30 Ondansetron 4 Mg/2 Ml Vial IVP 4 mg Q6HR PRN Administration Nausea / Vomiting Oxycodone HCl 5 mg 09/13/20 22:36 09/14/20 17:00 Oxycodone 5 Mg Tablet PO 5 mg Q4HR PRN Administration Pain 5 to 7 Pantoprazole Sodium 40 mg 09/14/20 07:00 09/14/20 06:42 Pantoprazole 40 Mg Tablet PO 40 mg QDAC ASHWIN Administration Sodium Chloride 10 ml 09/14/20 01:00 09/14/20 16:29 Sodium Chloride Flush 0.9% 10 Ml Syringe IVP 10 ml 0100,0900,1700 ASHWIN Administration - Lab Result Fish Bone Diagrams: 09/14/20 04:36 09/14/20 04:36 - Additional Planning My Orders: My Active Orders 09/13/20 22:36 Activity Orders [RC] Q2HR IO [RC] IOSHIFT Initiate Bowel Care Protocol [RC] .protocol Initiate Line Care Protocol [RC] QSHIFT Initiate Personal Care Protoco [RC] .protocol Telemetry- [RC] Q4HR Vital Signs [RC] 0800,1600,0000 Acetaminophen [Tylenol] 650 mg PO Q4HR PRN HYDROmorphone 0.5MG SYRINGE [Dilaudid Inj Syringe] 0.5 mg IVP Q2H PRN Ondansetron Inj [Zofran Inj] 4 mg IVP Q6HR PRN Sodium Chloride Flush 0.9% [Normal Saline Flush 0.9%] 10 ml IVP PRN PRN oxyCODONE [Roxicodone] 5 mg PO Q4HR PRN Code Status [OTHERS] Routine Condition of Patient [OTHERS] Routine DVT Prophylaxis [OTHERS] Routine 09/13/20 22:38 SCDs [RC] QSHIFT 09/13/20 23:00 Sodium Chloride 0.9% [Normal Saline 0.9%] 1,000 ml IV 100 mls/hr 09/14/20 01:00 Sodium Chloride Flush 0.9% [Normal Saline Flush 0.9%] 10 ml IVP 0100,0900,1700 09/14/20 07:00 Pantoprazole [Protonix] 40 mg PO QDAC 09/14/20 08:00 metroNIDAZOLE 500 MG/100 ML [Flagyl 500 mg/100 ml] 500 mg in 100 ml IV Q8H 09/14/20 09:00 Ciprofloxacin 400 mg/200 ml [Cipro 400 mg/200 ml] 400 mg in 200 ml IV Q12H Enoxaparin [Lovenox] 40 mg SUBQ DAILY 09/15/20 05:00 BMP - BASIC METABOLIC PANEL [CHEM] DAILYLAB CBC - COMP BLD CT W/AUTO DIFF [HEME] DAILYLAB 09/16/20 05:00 BMP - BASIC METABOLIC PANEL [CHEM] DAILYLAB CBC - COMP BLD CT W/AUTO DIFF [HEME] DAILYLAB 09/17/20 05:00 BMP - BASIC METABOLIC PANEL [CHEM] DAILYLAB CBC - COMP BLD CT W/AUTO DIFF [HEME] DAILYLAB Subjective - Subjective Patient Reports: Other (Patient resting in bed. He rates his pain 8 out of 10. There abdominal pain appears to be worse after a bowel movement. Its mostly in the left lower quadrant. It was reported that he had a low-grade temperature of 100.5 Fahrenheit. He has been nauseous and having dry heaves. On clear liquids.) Objective Vital Signs: Vital Signs - 24 hr 09/13/20 09/13/20 09/13/20 20:48 21:10 22:29 Temperature 37.6 C 37.6 C 37.9 C Heart Rate 88 88 77 Heart Rate [ Monitoring electrodes] Respiratory 16 16 18 Rate Blood Pressure 142/98 H 142/98 H 143/84 H Blood Pressure [Right Brachial artery] O2 Saturation 98 98 98 09/14/20 09/14/20 09/14/20 00:00 00:12 07:35 Temperature 37.7 C 37.7 C 38.1 C H Heart Rate 77 Heart Rate [ 87 80 Monitoring electrodes] Respiratory 18 18 18 Rate Blood Pressure 139/85 H Blood Pressure 128/93 H 158/88 H [Right Brachial artery] O2 Saturation 94 98 97 09/14/20 16:00 Temperature 37.7 C Heart Rate Heart Rate [ 66 Monitoring electrodes] Respiratory 14 Rate Blood Pressure Blood Pressure 118/72 [Right Brachial artery] O2 Saturation 95 Oxygen O2 Source Room air I&O (Last 24 Hrs): Intake and Output Totals x24h 09/12/20 09/13/20 09/14/20 23:59 23:59 23:59 Intake Total 1300 2147.000 Output Total 650 Balance 1300 1497.000 General: Alert, Oriented x3, Moderate distress, Severe distress HEENT: PERRLA, EOMI Neck: No JVD Neuro: Alert, Oriented Times 3 Cardiovascular: Regular rate, Normal S1, Normal S2 Respiratory: Chest non-tender, No respiratory distress, Breath sounds nml Abdomen: Normal bowel sounds, Soft, No tenderness Extremities: No clubbing, No cyanosis, No edema Skin: No rashes - Results Results: Laboratory Results WBC 20.2 x10^3/uL (4.8-10.8) H 09/14/20 04:36 RBC 4.86 10^6/uL (4.70-6.10) 09/14/20 04:36 Hgb 14.4 g/dL (14.0-18.0) 09/14/20 04:36 Hct 43.5 % (42.0-52.0) 09/14/20 04:36 MCV 89.5 fL (80.0-94.0) 09/14/20 04:36 MCH 29.6 pg (27.0-31.0) 09/14/20 04:36 MCHC 33.1 g/dL (32.0-36.0) 09/14/20 04:36 RDW 12.2 % (12.0-15.0) 09/14/20 04:36 Plt Count 157 10^3/uL (130-450) 09/14/20 04:36 MPV 10.9 fL (7.4-11.4) 09/14/20 04:36 Neut # (Auto) Not Reportable 09/14/20 04:36 Lymph # (Auto) Not Reportable 09/14/20 04:36 [place] # (Auto) Not Reportable 09/14/20 04:36 Eos # (Auto) Not Reportable 09/14/20 04:36 Baso # (Auto) Not Reportable 09/14/20 04:36 Absolute Nucleated RBC Not Reportable 09/14/20 04:36 Total Counted 100 09/14/20 04:36 Band Neuts % (Manual) 0 % (0-10) 09/14/20 04:36 Abnorm Lymph % (Manual) 0 % 09/14/20 04:36 Nucleated RBC % Not Reportable 09/14/20 04:36 Neutrophils # (Manual) 18.2 10^3/uL (1.5-6.6) H 09/14/20 04:36 Lymphocytes # (Manual) 1.0 10^3/uL (1.5-3.5) L 09/14/20 04:36 Monocytes # (Manual) 1.0 10^3/uL (0.0-1.0) 09/14/20 04:36 Eosinophils # (Manual) 0.0 10^3/uL (0-0.7) 09/14/20 04:36 Basophils # (Manual) 0.0 10^3/uL (0-0.1) 09/14/20 04:36 Differential Comment MANUAL DIFFERENTIAL 09/14/20 04:36 WBC Morphology NORMAL APPEARANCE (NORMAL) 09/14/20 04:36 Platelet Estimate NORMAL (130-450,000) (NORMAL) 09/14/20 04:36 Platelet Morphology NORMAL APPEARANCE (NORMAL) 09/14/20 04:36 RBC Morph Micro Appear NORMAL APPEARANCE (NORMAL) 09/14/20 04:36 Sodium 133 mmol/L (135-145) L 09/14/20 04:36 Potassium 3.9 mmol/L (3.5-5.0) 09/14/20 04:36 Chloride 100 mmol/L (101-111) L 09/14/20 04:36 Carbon Dioxide 23 mmol/L (21-32) 09/14/20 04:36 Anion Gap 10.0 (6-13) 09/14/20 04:36 BUN 19 mg/dL (6-20) 09/14/20 04:36 Creatinine 1.0 mg/dL (0.6-1.2) 09/14/20 04:36 Estimated GFR (MDRD) 78 (>89) L 09/14/20 04:36 Glucose 126 mg/dL (70-100) H 09/14/20 04:36 Lactic Acid 0.9 mmol/L (0.5-2.2) 09/13/20 21:54 Calcium 8.5 mg/dL (8.5-10.3) 09/14/20 04:36 Total Bilirubin 0.9 mg/dL (0.2-1.0) 09/13/20 21:44 AST 18 IU/L (10-42) 09/13/20 21:44 ALT 18 IU/L (10-60) 09/13/20 21:44 Alkaline Phosphatase 58 IU/L (42-121) 09/13/20 21:44 Total Protein 6.9 g/dL (6.7-8.2) 09/13/20 21:44 Albumin 3.8 g/dL (3.2-5.5) 09/13/20 21:44 Globulin 3.1 g/dL (2.1-4.2) 09/13/20 21:44 Albumin/Globulin Ratio 1.2 (1.0-2.2) 09/13/20 21:44 Lipase 25 U/L (22-51) 09/13/20 21:44 Nasal Adenovirus (PCR) NOT DETECTED 09/14/20 00:00 Nasal B. parapertussis DNA (PCR) NOT DETECTED 09/14/20 00:00 Nasal Coronavir 229E PCR NOT DETECTED 09/14/20 00:00 Nasal Coronavir HKU1 PCR NOT DETECTED 09/14/20 00:00 Nasal Coronavir NL63 PCR NOT DETECTED 09/14/20 00:00 Nasal Coronavir OC43 PCR NOT DETECTED 09/14/20 00:00 Nasal Enterovir/Rhinovir PCR NOT DETECTED 09/14/20 00:00 Nasal Influenza B PCR NOT DETECTED 09/14/20 00:00 Nasal Influenza A PCR NOT DETECTED 09/14/20 00:00 Nasal Parainfluen 1 PCR NOT DETECTED 09/14/20 00:00 Nasal Parainfluen 2 PCR NOT DETECTED 09/14/20 00:00 Nasal Parainfluen 3 PCR NOT DETECTED 09/14/20 00:00 Nasal Parainfluen 4 PCR NOT DETECTED 09/14/20 00:00 Nasal RSV (PCR) NOT DETECTED 09/14/20 00:00 Nasal Screen MRSA (PCR) NEGATIVE (NEGATIVE) 09/14/20 00:35 Nasal B.pertussis DNA PCR NOT DETECTED 09/14/20 00:00 Nasal C.pneumoniae (PCR) NOT DETECTED 09/14/20 00:00 Julio Human Metapneumo PCR NOT DETECTED 09/14/20 00:00 Nasal M.pneumoniae (PCR) NOT DETECTED 09/14/20 00:00 Nasal SARS-CoV-2 (PCR) NOT DETECTED 09/14/20 00:00 - Procedures Procedures: Procedures COLONOSCOPY (05/29/13) ABX Reporting Has patient been on IV antibiotics over the past 48 hours?: Yes
[2020-09-14] MEDS: MORPHINE 2 MG/ML CARPUJECT IVP PRN ×2 (20:24→23:34)
[2020-09-15] MEDS: metroNIDAZOLE 500 MG/100 ML 500 MG/100 ML BAG IV SCH ×3 (00:57→16:08)
[2020-09-15] MEDS: SODIUM CHLORIDE FLUSH 0.9% 10 ML SYRINGE IVP SCH ×3 (02:19→16:08)
[2020-09-15] MEDS: MORPHINE 2 MG/ML CARPUJECT IVP PRN ×2 (02:38→05:34)
[2020-09-15 05:06] LABS: BASOPHILS # (AUTO) 0.1 10^3/uL (0.0-0.1); BASOPHILS % (AUTO) 0.3 %; EOSINOPHILS % (AUTO) 0.2 %; HCT - HEMATOCRIT 41.3 % (42.0-52.0); HGB - HEMOGLOBIN 13.5 g/dL (14.0-18.0); LYMPHOCYTES # (AUTO) 1.7 10^3/uL (1.5-3.5); LYMPHOCYTES % (AUTO) 9.8 %; MEAN CORPUSCULAR HEMOGLOBIN 29.3 pg (27.0-31.0); MEAN CORPUSCULAR HGB CONC 32.7 g/dL (32.0-36.0); MEAN CORPUSCULAR VOLUME 89.6 fL (80.0-94.0); MEAN PLATELET VOLUME 10.6 fL (7.4-11.4); MONOCYTES # (AUTO) 1.1 10^3/uL (0.0-1.0); MONOCYTES % (AUTO) 6.2 %; NEUTROPHILS # (AUTO) 13.9 10^3/uL (1.5-6.6); NEUTROPHILS % (AUTO) 82.9 %; PLT - PLATELET COUNT 148 10^3/uL (130-450); RED BLOOD COUNT 4.61 10^6/uL (4.70-6.10); RED CELL DISTRIBUTION WIDTH 12.3 % (12.0-15.0); WHITE BLOOD COUNT 16.8 x10^3/uL (4.8-10.8)
[2020-09-15 05:18] LABS: CALCIUM 8.5 mg/dL (8.5-10.3); POTASSIUM 3.9 mmol/L (3.5-5.0)
[2020-09-15] MEDS: PANTOPRAZOLE 40 MG TABLET PO SCH (06:04)
--- NOTE | 2020-09-15 06:16 | PROVIDER PROGRESS NOTE ---
Assessment/Plan - Problem List (1) Diverticulitis Assessment/Plan: Patient's white blood cell count improved from 20 down to 16 today. We will continue Cipro and Flagyl. Continue IV hydration With normal saline at 100 mils per hour. Advance diet to full liquids. Continue morphine, oxycodone and or Tylenol for pain. Overall patient is improving clinically. Anticipated discharge home with oral antibiotics in 2 days. - Current Meds Current Meds: Current Medications Generic Name Dose Route Start Last Admin Trade Name Freq PRN Reason Stop Dose Admin Enoxaparin Sodium 40 mg 09/14/20 09:00 09/14/20 08:16 Enoxaparin 40 Mg/0.4 Ml Syringe SUBQ 40 mg DAILY ASHWIN Administration Sodium Chloride 1,000 mls @ 100 mls/hr 09/13/20 23:00 09/15/20 01:57 Normal Saline 0.9% IV 100 mls/hr .Q10H ASHWIN Infusion Metronidazole 500 mg in 100 mls @ 100 mls/hr 09/14/20 08:00 09/15/20 01:57 Flagyl 500 Mg/100 Ml IV Infused Q8H ASHWIN Infusion Ciprofloxacin 400 mg in 200 mls @ 200 mls/hr 09/14/20 09:00 09/14/20 22:49 Cipro 400 Mg/200 Ml IV Infused Q12H ASHWIN Infusion Morphine Sulfate 4 mg 09/14/20 19:53 09/15/20 05:34 Morphine 2 Mg/Ml Carpuject IVP 4 mg Q3HR PRN Administration PAIN Ondansetron HCl 4 mg 09/13/20 22:36 09/14/20 12:30 Ondansetron 4 Mg/2 Ml Vial IVP 4 mg Q6HR PRN Administration Nausea / Vomiting Oxycodone HCl 5 mg 09/13/20 22:36 09/14/20 17:00 Oxycodone 5 Mg Tablet PO 5 mg Q4HR PRN Administration Pain 5 to 7 Pantoprazole Sodium 40 mg 09/14/20 07:00 09/15/20 06:04 Pantoprazole 40 Mg Tablet PO 40 mg QDAC ASHWIN Administration Sodium Chloride 10 ml 09/14/20 01:00 09/15/20 02:19 Sodium Chloride Flush 0.9% 10 Ml Syringe IVP Not Given 0100,0900,1700 ASHWIN - Lab Result Fish Bone Diagrams: 09/15/20 04:55 09/15/20 04:55 - Additional Planning My Orders: My Active Orders 09/14/20 07:00 Pantoprazole [Protonix] 40 mg PO QDAC 09/14/20 08:00 metroNIDAZOLE 500 MG/100 ML [Flagyl 500 mg/100 ml] 500 mg in 100 ml IV Q8H 09/14/20 09:00 Ciprofloxacin 400 mg/200 ml [Cipro 400 mg/200 ml] 400 mg in 200 ml IV Q12H Enoxaparin [Lovenox] 40 mg SUBQ DAILY 09/14/20 19:53 Morphine Inj (Carpuject) [Morphine (Carpuject)] 4 mg IVP Q3HR PRN 09/16/20 05:00 BMP - BASIC METABOLIC PANEL [CHEM] DAILYLAB CBC - COMP BLD CT W/AUTO DIFF [HEME] DAILYLAB 09/17/20 05:00 BMP - BASIC METABOLIC PANEL [CHEM] DAILYLAB CBC - COMP BLD CT W/AUTO DIFF [HEME] DAILYLAB Subjective - Subjective Patient Reports: Other (Patient was resting comfortably in bed at time of exam. He reports feeling much better today. His abdominal pain has subsided. He rates it at 6 out of 10 scale. He denies any other complaints.) Objective Vital Signs: Vital Signs - 24 hr 09/14/20 09/14/20 09/14/20 07:35 16:00 19:30 Temperature 38.1 C H 37.7 C 37.4 C Heart Rate [ Brachial] Heart Rate [ 80 66 66 Monitoring electrodes] Respiratory 18 14 16 Rate Blood Pressure 158/88 H 118/72 117/74 [Right Brachial artery] O2 Saturation 97 95 97 09/14/20 09/15/20 23:36 05:00 Temperature 37.2 C 37.1 C Heart Rate [ 61 62 Brachial] Heart Rate [ Monitoring electrodes] Respiratory 16 16 Rate Blood Pressure 110/65 108/65 [Right Brachial artery] O2 Saturation 94 94 Oxygen O2 Source Room air I&O (Last 24 Hrs): Intake and Output Totals x24h 09/13/20 09/14/20 09/15/20 23:59 23:59 23:59 Intake Total 1300 2552.000 546.667 Output Total 650 Balance 1300 1902.000 546.667 General: Alert, Oriented x3, Mild distress, Moderate distress HEENT: PERRLA, EOMI Neck: Supple, No JVD Neuro: Alert, Oriented Times 3 Cardiovascular: Regular rate, Normal S1, Normal S2 Respiratory: Chest non-tender, No respiratory distress, Breath sounds nml Abdomen: Normal bowel sounds, Soft Extremities: No clubbing, No cyanosis, No edema Skin: No rashes - Results Results: Laboratory Results WBC 16.8 x10^3/uL (4.8-10.8) H 09/15/20 04:55 RBC 4.61 10^6/uL (4.70-6.10) L 09/15/20 04:55 Hgb 13.5 g/dL (14.0-18.0) L 09/15/20 04:55 Hct 41.3 % (42.0-52.0) L 09/15/20 04:55 MCV 89.6 fL (80.0-94.0) 09/15/20 04:55 MCH 29.3 pg (27.0-31.0) 09/15/20 04:55 MCHC 32.7 g/dL (32.0-36.0) 09/15/20 04:55 RDW 12.3 % (12.0-15.0) 09/15/20 04:55 Plt Count 148 10^3/uL (130-450) 09/15/20 04:55 MPV 10.6 fL (7.4-11.4) 09/15/20 04:55 Neut # (Auto) 13.9 10^3/uL (1.5-6.6) H 09/15/20 04:55 Lymph # (Auto) 1.7 10^3/uL (1.5-3.5) 09/15/20 04:55 [place] # (Auto) 1.1 10^3/uL (0.0-1.0) H 09/15/20 04:55 Eos # (Auto) 0.0 10^3/uL (0.0-0.7) 09/15/20 04:55 Baso # (Auto) 0.1 10^3/uL (0.0-0.1) 09/15/20 04:55 Absolute Nucleated RBC 0.00 x10^3/uL 09/15/20 04:55 Total Counted 100 09/14/20 04:36 Band Neuts % (Manual) 0 % (0-10) 09/14/20 04:36 Abnorm Lymph % (Manual) 0 % 09/14/20 04:36 Nucleated RBC % 0.0 /100WBC 09/15/20 04:55 Neutrophils # (Manual) 18.2 10^3/uL (1.5-6.6) H 09/14/20 04:36 Lymphocytes # (Manual) 1.0 10^3/uL (1.5-3.5) L 09/14/20 04:36 Monocytes # (Manual) 1.0 10^3/uL (0.0-1.0) 09/14/20 04:36 Eosinophils # (Manual) 0.0 10^3/uL (0-0.7) 09/14/20 04:36 Basophils # (Manual) 0.0 10^3/uL (0-0.1) 09/14/20 04:36 Differential Comment MANUAL DIFFERENTIAL 09/14/20 04:36 WBC Morphology NORMAL APPEARANCE (NORMAL) 09/14/20 04:36 Platelet Estimate NORMAL (130-450,000) (NORMAL) 09/14/20 04:36 Platelet Morphology NORMAL APPEARANCE (NORMAL) 09/14/20 04:36 RBC Morph Micro Appear NORMAL APPEARANCE (NORMAL) 09/14/20 04:36 Sodium 135 mmol/L (135-145) 09/15/20 04:55 Potassium 3.9 mmol/L (3.5-5.0) 09/15/20 04:55 Chloride 101 mmol/L (101-111) 09/15/20 04:55 Carbon Dioxide 24 mmol/L (21-32) 09/15/20 04:55 Anion Gap 10.0 (6-13) 09/15/20 04:55 BUN 13 mg/dL (6-20) 09/15/20 04:55 Creatinine 1.0 mg/dL (0.6-1.2) 09/15/20 04:55 Estimated GFR (MDRD) 78 (>89) L 09/15/20 04:55 Glucose 117 mg/dL (70-100) H 09/15/20 04:55 Lactic Acid 0.9 mmol/L (0.5-2.2) 09/13/20 21:54 Calcium 8.5 mg/dL (8.5-10.3) 09/15/20 04:55 Total Bilirubin 0.9 mg/dL (0.2-1.0) 09/13/20 21:44 AST 18 IU/L (10-42) 09/13/20 21:44 ALT 18 IU/L (10-60) 09/13/20 21:44 Alkaline Phosphatase 58 IU/L (42-121) 09/13/20 21:44 Total Protein 6.9 g/dL (6.7-8.2) 09/13/20 21:44 Albumin 3.8 g/dL (3.2-5.5) 09/13/20 21:44 Globulin 3.1 g/dL (2.1-4.2) 09/13/20 21:44 Albumin/Globulin Ratio 1.2 (1.0-2.2) 09/13/20 21:44 Lipase 25 U/L (22-51) 09/13/20 21:44 Nasal Adenovirus (PCR) NOT DETECTED 09/14/20 00:00 Nasal B. parapertussis DNA (PCR) NOT DETECTED 09/14/20 00:00 Nasal Coronavir 229E PCR NOT DETECTED 09/14/20 00:00 Nasal Coronavir HKU1 PCR NOT DETECTED 09/14/20 00:00 Nasal Coronavir NL63 PCR NOT DETECTED 09/14/20 00:00 Nasal Coronavir OC43 PCR NOT DETECTED 09/14/20 00:00 Nasal Enterovir/Rhinovir PCR NOT DETECTED 09/14/20 00:00 Nasal Influenza B PCR NOT DETECTED 09/14/20 00:00 Nasal Influenza A PCR NOT DETECTED 09/14/20 00:00 Nasal Parainfluen 1 PCR NOT DETECTED 09/14/20 00:00 Nasal Parainfluen 2 PCR NOT DETECTED 09/14/20 00:00 Nasal Parainfluen 3 PCR NOT DETECTED 09/14/20 00:00 Nasal Parainfluen 4 PCR NOT DETECTED 09/14/20 00:00 Nasal RSV (PCR) NOT DETECTED 09/14/20 00:00 Nasal Screen MRSA (PCR) NEGATIVE (NEGATIVE) 09/14/20 00:35 Nasal B.pertussis DNA PCR NOT DETECTED 09/14/20 00:00 Nasal C.pneumoniae (PCR) NOT DETECTED 09/14/20 00:00 Julio Human Metapneumo PCR NOT DETECTED 09/14/20 00:00 Nasal M.pneumoniae (PCR) NOT DETECTED 09/14/20 00:00 Nasal SARS-CoV-2 (PCR) NOT DETECTED 09/14/20 00:00 - Procedures Procedures: Procedures COLONOSCOPY (05/29/13) ABX Reporting Has patient been on IV antibiotics over the past 48 hours?: Yes
[2020-09-15] MEDS: SACCHAROMYCES BOULARDII 250 MG CAPSULE PO SCH ×2 (08:03→16:08)
[2020-09-15] MEDS: ACETAMINOPHEN 325 MG TABLET PO PRN ×2 (08:03→17:20)
[2020-09-15] MEDS: oxyCODONE 5 MG TABLET PO PRN ×2 (08:03→17:20)
[2020-09-15] MEDS: ENOXAPARIN 40 MG/0.4 ML SYRINGE SUBQ SCH (08:05)
--- NOTE | 2020-09-15 08:30 | PHARMACY PROGRESS NOTE ---
- Best Possible Medication History Admit Date and Time: 09/13/20 2232 Processed by: Pharmacy Medication History completed: Yes Patient Interview: Completed Secondary Source(s): Physician records (PATIENT INTERVIEWED BY PHARMACY. PATIENT REPORTS HE DOES NOT TAKE MAINTENACE HOME MEDICATIONS. ), Pharmacy records, Insurance records As the person ultimately responsible for medication therapy, providers are able to order a medication from an existing home medication list in [facility] via the "Reconcile Routine" prior to Confirmation of that medication by support coordinator. Such practice is discouraged except when the physician, in their clinical judg ment, deems that a medical need exists for a medication without regard to previous use.
[2020-09-15] MEDS: CIPROFLOXACIN 400 MG/200 ML 400 MG/200 ML BAG IV SCH ×2 (09:35→20:35)
[2020-09-15] MEDS: SODIUM CHLORIDE 0.9% 1,000 ML IV SCH ×2 (10:40→20:36)
[2020-09-16] MEDS: ACETAMINOPHEN 325 MG TABLET PO PRN ×3 (00:17→17:49)
[2020-09-16] MEDS: oxyCODONE 5 MG TABLET PO PRN ×3 (00:18→17:49)
[2020-09-16] MEDS: metroNIDAZOLE 500 MG/100 ML 500 MG/100 ML BAG IV SCH ×3 (00:19→16:23)
[2020-09-16] MEDS: SODIUM CHLORIDE FLUSH 0.9% 10 ML SYRINGE IVP SCH ×3 (01:37→16:50)
[2020-09-16 05:21] LABS: BASOPHILS % (AUTO) 0.1 %; EOSINOPHILS # (AUTO) 0.1 10^3/uL (0.0-0.7); EOSINOPHILS % (AUTO) 0.6 %; HCT - HEMATOCRIT 39.7 % (42.0-52.0); HGB - HEMOGLOBIN 13.1 g/dL (14.0-18.0); LYMPHOCYTES # (AUTO) 1.3 10^3/uL (1.5-3.5); LYMPHOCYTES % (AUTO) 9.2 %; MEAN CORPUSCULAR HEMOGLOBIN 29.6 pg (27.0-31.0); MEAN CORPUSCULAR VOLUME 89.8 fL (80.0-94.0); MEAN PLATELET VOLUME 10.8 fL (7.4-11.4); MONOCYTES % (AUTO) 6.7 %; NEUTROPHILS % (AUTO) 82.9 %; PLT - PLATELET COUNT 153 10^3/uL (130-450); RED BLOOD COUNT 4.42 10^6/uL (4.70-6.10); WHITE BLOOD COUNT 14.5 x10^3/uL (4.8-10.8)
[2020-09-16 05:26] LABS: CALCIUM 8.2 mg/dL (8.5-10.3); CREATININE 0.9 mg/dL (0.6-1.2); POTASSIUM 3.7 mmol/L (3.5-5.0)
[2020-09-16] MEDS: PANTOPRAZOLE 40 MG TABLET PO SCH (06:02)
[2020-09-16] MEDS: SACCHAROMYCES BOULARDII 250 MG CAPSULE PO SCH ×2 (08:10→16:23)
[2020-09-16] MEDS: ENOXAPARIN 40 MG/0.4 ML SYRINGE SUBQ SCH (08:11)
[2020-09-16] MEDS: SODIUM CHLORIDE 0.9% 1,000 ML IV SCH ×3 (09:02→22:45)
[2020-09-16] MEDS: CIPROFLOXACIN 400 MG/200 ML 400 MG/200 ML BAG IV SCH ×2 (09:10→20:41)
--- NOTE | 2020-09-16 19:38 | PROVIDER PROGRESS NOTE ---
Subjective - Prog Note Date Prog Note Date: 09/16/20 - Subjective Subjective: Reports feeling well. States his pain is controlled with oxycodone and is about a 3 out of 10. He has been tolerating a diet and was able to get a soft diet for dinner. No vomiting. He is starting to have small bowel movements. Current Medications - Current Medications Current Medications: Active Medications Acetaminophen (Acetaminophen 325 Mg Tablet) 650 mg PO Q4HR PRN PRN Reason: Pain 1 to 4 Last Admin: 09/16/20 17:49 Dose: 650 mg Documented by: Enoxaparin Sodium (Enoxaparin 40 Mg/0.4 Ml Syringe) 40 mg SUBQ DAILY [facility] Last Admin: 09/16/20 08:11 Dose: Not Given Documented by: Sodium Chloride (Normal Saline 0.9%) 1,000 mls @ 100 mls/hr IV .Q10H [facility] Last Infusion: 09/16/20 16:25 Dose: 100 mls/hr Documented by: Metronidazole (Flagyl 500 Mg/100 Ml) 500 mg in 100 mls @ 100 mls/hr IV Q8H [facility] Last Infusion: 09/16/20 17:25 Dose: Infused Documented by: Ciprofloxacin (Cipro 400 Mg/200 Ml) 400 mg in 200 mls @ 200 mls/hr IV Q12H [facility] Last Infusion: 09/16/20 10:43 Dose: Infused Documented by: Morphine Sulfate (Morphine 2 Mg/Ml Carpuject) 4 mg IVP Q3HR PRN PRN Reason: PAIN Last Admin: 09/15/20 05:34 Dose: 4 mg Documented by: Ondansetron HCl (Ondansetron 4 Mg/2 Ml Vial) 4 mg IVP Q6HR PRN PRN Reason: Nausea / Vomiting Last Admin: 09/14/20 12:30 Dose: 4 mg Documented by: Oxycodone HCl (Oxycodone 5 Mg Tablet) 5 mg PO Q4HR PRN PRN Reason: Pain 5 to 7 Last Admin: 09/16/20 17:49 Dose: 5 mg Documented by: Pantoprazole Sodium (Pantoprazole 40 Mg Tablet) 40 mg PO QDAC [facility] Last Admin: 09/16/20 06:02 Dose: 40 mg Documented by: Saccharomyces Boulardii (Saccharomyces Boulardii 250 Mg Capsule) 250 mg PO BIDWM [facility] Last Admin: 09/16/20 16:23 Dose: 250 mg Documented by: Sodium Chloride (Sodium Chloride Flush 0.9% 10 Ml Syringe) 10 ml IVP PRN PRN PRN Reason: NEEDED PER PROVIDER ORDERS Sodium Chloride (Sodium Chloride Flush 0.9% 10 Ml Syringe) 10 ml IVP 0100,0900,1700 [facility] Last Admin: 09/16/20 16:50 Dose: Not Given Documented by: No Known Home Medications 09/15/20 Objective - Vital Signs/Intake & Output Reviewed Vital Signs: Yes Vital Signs: Vital Signs x48h Temp Pulse Resp BP Pulse Ox 09/16/20 17:11 36.9 C 60 16 141/86 H 98 09/16/20 12:59 36.9 C 51 L 18 126/79 96 Intake & Output: Intake & Output 09/13/20 09/14/20 09/15/20 09/16/20 23:59 23:59 23:59 23:59 Intake Total 1300 2552.000 3895.000 4048.333 Output Total 650 Balance 1300 8805.551 8714.000 4048.333 - Objective General Appearance: positive: No acute distress, Alert Eyes Bilateral: positive: Normal inspection, Conjunctivae nml ENT: positive: ENT inspection nml Neck: positive: Nml inspection Cardiovascular: positive: Regular rate & rhythm. negative: Irregularly irre gular, Tachycardia Abdomen: positive: Nml bowel sounds, No distention, Tenderness (Deep palpation left lower quadrant). negative: Guarding, Rebound, Abnml bowel sounds Skin: positive: Warm, Dry Extremities: positive: No pedal edema Neurologic/Psychiatric: positive: Motor nml - Lab Results Fish Bones: 09/16/20 05:02 09/16/20 05:02 Other Labs: Lab Results x24hrs 09/16/20 09/16/20 Range/Units 05:02 05:02 WBC 14.5 H (4.8-10.8) x10^3/uL RBC 4.42 L (4.70-6.10) 10^6/uL Hgb 13.1 L (14.0-18.0) g/dL Hct 39.7 L (42.0-52.0) % MCV 89.8 (80.0-94.0) fL MCH 29.6 (27.0-31.0) pg MCHC 33.0 (32.0-36.0) g/dL RDW 12.0 (12.0-15.0) % Plt Count 153 (130-450) 10^3/uL MPV 10.8 (7.4-11.4) fL Neut # (Auto) 12.0 H (1.5-6.6) 10^3/uL Lymph # (Auto) 1.3 L (1.5-3.5) 10^3/uL [place] # (Auto) 1.0 (0.0-1.0) 10^3/uL Eos # (Auto) 0.1 (0.0-0.7) 10^3/uL Baso # (Auto) 0.0 (0.0-0.1) 10^3/uL Absolute Nucleated RBC 0.00 x10^3/uL Nucleated RBC % 0.0 /100WBC Sodium 135 (135-145) mmol/L Potassium 3.7 (3.5-5.0) mmol/L Chloride 102 (101-111) mmol/L Carbon Dioxide 25 (21-32) mmol/L Anion Gap 8.0 (6-13) BUN 13 (6-20) mg/dL Creatinine 0.9 (0.6-1.2) mg/dL Estimated GFR (MDRD) 88 L (>89) Glucose 115 H (70-100) mg/dL Calcium 8.2 L (8.5-10.3) mg/dL ABX Reporting Has patient been on IV antibiotics over the past 48 hours?: Yes Assessment/Plan - Problem List (1) Diverticulitis of colon with perforation Impression: This was evident on the CT of the abdomen and pelvis on admission. Clinically he is improving. His white count is decreasing. His diet has been advanced and he is tolerating this well. His pain is also improved. We will keep him on ciprofloxacin and Flagyl IV today. His diet has been advanced to a soft diet for dinner and hopefully will continue to tolerate this well. Continue with current pain regimen. Suspect he will be stable for discharge over the next 1 to 2 days. Will likely discuss with general surgery tomorrow regarding follow- up. Qualifiers: Diverticulitis bleeding: without bleeding Qualified Code(s): K57.20 - Diverticulitis of large intestine with perforation and abscess without bleeding
[2020-09-17] MEDS: metroNIDAZOLE 500 MG/100 ML 500 MG/100 ML BAG IV SCH ×2 (00:15→08:32)
[2020-09-17] MEDS: SODIUM CHLORIDE FLUSH 0.9% 10 ML SYRINGE IVP SCH ×3 (00:16→16:59)
[2020-09-17] MEDS: MORPHINE 2 MG/ML CARPUJECT IVP PRN (04:29)
[2020-09-17 05:32] LABS: BASOPHILS % (AUTO) 0.3 %; EOSINOPHILS # (AUTO) 0.2 10^3/uL (0.0-0.7); EOSINOPHILS % (AUTO) 1.2 %; HCT - HEMATOCRIT 39.3 % (42.0-52.0); HGB - HEMOGLOBIN 13.1 g/dL (14.0-18.0); LYMPHOCYTES # (AUTO) 1.5 10^3/uL (1.5-3.5); MEAN CORPUSCULAR HGB CONC 33.3 g/dL (32.0-36.0); MEAN CORPUSCULAR VOLUME 89.9 fL (80.0-94.0); MEAN PLATELET VOLUME 10.8 fL (7.4-11.4); MONOCYTES # (AUTO) 0.9 10^3/uL (0.0-1.0); MONOCYTES % (AUTO) 6.5 %; NEUTROPHILS # (AUTO) 10.6 10^3/uL (1.5-6.6); NEUTROPHILS % (AUTO) 80.5 %; PLT - PLATELET COUNT 183 10^3/uL (130-450); RED BLOOD COUNT 4.37 10^6/uL (4.70-6.10); RED CELL DISTRIBUTION WIDTH 12.2 % (12.0-15.0); WHITE BLOOD COUNT 13.2 x10^3/uL (4.8-10.8)
[2020-09-17 05:47] LABS: CALCIUM 8.3 mg/dL (8.5-10.3); CREATININE 0.8 mg/dL (0.6-1.2); POTASSIUM 3.5 mmol/L (3.5-5.0)
[2020-09-17] MEDS: ACETAMINOPHEN 325 MG TABLET PO PRN ×4 (06:07→21:24)
[2020-09-17] MEDS: PANTOPRAZOLE 40 MG TABLET PO SCH (06:07)
[2020-09-17] MEDS: oxyCODONE 5 MG TABLET PO PRN ×4 (07:36→21:25)
[2020-09-17] MEDS: SACCHAROMYCES BOULARDII 250 MG CAPSULE PO SCH (08:32)
[2020-09-17] MEDS: ENOXAPARIN 40 MG/0.4 ML SYRINGE SUBQ SCH (09:18)
[2020-09-17] MEDS: CIPROFLOXACIN 400 MG/200 ML 400 MG/200 ML BAG IV SCH (09:28)
[2020-09-17] MEDS: SODIUM CHLORIDE 0.9% 1,000 ML IV SCH ×2 (10:38→21:24)
[2020-09-17] MEDS ORDERED: IOVERSOL 320 100 ML VIAL IVP ONE ×2 (11:29→12:10)
--- NOTE | 2020-09-17 11:36 | PROVIDER PROGRESS NOTE ---
Subjective - Prog Note Date Prog Note Date: 09/17/20 - Subjective Pt reports feeling: Worse Subjective: Patient report he had suddenly left lower abdominal pain, worsening Significantly. Patient has no fever. But patient WBC and CRP still elevated. Because the patient increases abdominal pain, order new CAT scan and consulted with surgeon Dr. Collins, and he will see pt at this afternoon. Current Medications - Current Medications Current Medications: Active Medications Acetaminophen (Acetaminophen 325 Mg Tablet) 650 mg PO Q4HR PRN PRN Reason: Pain 1 to 4 Last Admin: 09/17/20 06:07 Dose: 650 mg Documented by: Enoxaparin Sodium (Enoxaparin 40 Mg/0.4 Ml Syringe) 40 mg SUBQ DAILY [facility] Last Admin: 09/17/20 09:18 Dose: Not Given Documented by: Hydralazine HCl (Hydralazine Inj 20 Mg/Ml Vial) 10 mg IVP Q4H PRN PRN Reason: PRN if SBP>170 Sodium Chloride (Normal Saline 0.9%) 1,000 mls @ 100 mls/hr IV .Q10H [facility] Last Admin: 09/17/20 10:38 Dose: 100 mls/hr Documented by: Metronidazole (Flagyl 500 Mg/100 Ml) 500 mg in 100 mls @ 100 mls/hr IV Q8H [facility] Last Infusion: 09/17/20 10:37 Dose: Infused Documented by: Ciprofloxacin (Cipro 400 Mg/200 Ml) 400 mg in 200 mls @ 200 mls/hr IV Q12H [facility] Last Infusion: 09/17/20 10:43 Dose: Infused Documented by: Morphine Sulfate (Morphine 2 Mg/Ml Carpuject) 4 mg IVP Q3HR PRN PRN Reason: PAIN Last Admin: 09/17/20 04:29 Dose: 4 mg Documented by: Ondansetron HCl (Ondansetron 4 Mg/2 Ml Vial) 4 mg IVP Q6HR PRN PRN Reason: Nausea / Vomiting Last Admin: 09/14/20 12:30 Dose: 4 mg Documented by: Oxycodone HCl (Oxycodone 5 Mg Tablet) 5 mg PO Q4HR PRN PRN Reason: Pain 5 to 7 Last Admin: 09/17/20 07:36 Dose: 5 mg Documented by: Pantoprazole Sodium (Pantoprazole 40 Mg Tablet) 40 mg PO QDAC [facility] Last Admin: 09/17/20 06:07 Dose: 40 mg Documented by: Saccharomyces Boulardii (Saccharomyces Boulardii 250 Mg Capsule) 250 mg PO BIDWM [facility] Last Admin: 09/17/20 08:32 Dose: 250 mg Documented by: Sodium Chloride (Sodium Chloride Flush 0.9% 10 Ml Syringe) 10 ml IVP PRN PRN PRN Reason: NEEDED PER PROVIDER ORDERS Sodium Chloride (Sodium Chloride Flush 0.9% 10 Ml Syringe) 10 ml IVP 0100,0900,1700 [facility] Last Admin: 09/17/20 09:18 Dose: Not Given Documented by: No Known Home Medications 09/15/20 Objective - Vital Signs/Intake & Output Vital Signs: Vital Signs x48h Temp Pulse Resp BP BP Pulse Ox 09/17/20 09:00 37.0 C 71 20 166/86 H 99 09/17/20 05:00 36.2 C L 66 16 146/79 H 96 Intake & Output: Intake & Output 09/14/20 09/15/20 09/16/20 09/17/20 23:59 23:59 23:59 23:59 Intake Total 2552.000 3895.000 4510.000 1640 Output Total 650 Balance 8133.873 2853.000 4510.000 1640 - Objective General Appearance: positive: Alert, Mild distress. negative: Lethargic Eyes Bilateral: positive: Normal inspection, PERRL, No lid inflammation ENT: positive: ENT inspection nml, No signs of dehydration. negative: Purulent nasal drainage Neck: positive: Nml inspection, Trachea midline. negative: Thyromegaly, Tracheal deviation Respiratory: positive: Chest non-tender, No respiratory distress, Breath sounds nml. negative: Wheezes, Rales, Rhonchi Cardiovascular: positive: Regular rate & rhythm, No murmur. negative: Tachycardia, Bradycardia, Systolic murmur, Diastolic murmur Peripheral Pulses: 2+ Radial (R), 2+ Radial (L) Abdomen: positive: No organomegaly, Nml bowel sounds, No distention, Tenderness. negative: Guarding, Rebound Back: positive: Nml inspection Skin: positive: Color nml, Warm, Dry. negative: Cyanosis, Diaphoresis, Pallor Extremities: positive: Non-tender, Full ROM, Nml appearance. negative: Calf tenderness Neurologic/Psychiatric: positive: Oriented x3, Motor nml, Sensation nml, Mood/affect nml. negative: Weakness, Sensory loss, Facial droop, Slurred/abnml speech, Depressed mood/affect - Lab Results Fish Bones: 09/17/20 05:15 09/17/20 05:15 Other Labs: Lab Results x24hrs 09/17/20 09/17/20 09/17/20 Range/Units 05:15 05:15 05:15 WBC 13.2 H (4.8-10.8) x10^3/uL RBC 4.37 L (4.70-6.10) 10^6/uL Hgb 13.1 L (14.0-18.0) g/dL Hct 39.3 L (42.0-52.0) % MCV 89.9 (80.0-94.0) fL MCH 30.0 (27.0-31.0) pg MCHC 33.3 (32.0-36.0) g/dL RDW 12.2 (12.0-15.0) % Plt Count 183 (130-450) 10^3/uL MPV 10.8 (7.4-11.4) fL Neut # (Auto) 10.6 H (1.5-6.6) 10^3/uL Lymph # (Auto) 1.5 (1.5-3.5) 10^3/uL [place] # (Auto) 0.9 (0.0-1.0) 10^3/uL Eos # (Auto) 0.2 (0.0-0.7) 10^3/uL Baso # (Auto) 0.0 (0.0-0.1) 10^3/uL Absolute Nucleated RBC 0.00 x10^3/uL Nucleated RBC % 0.0 /100WBC Sodium 140 (135-145) mmol/L Potassium 3.5 (3.5-5.0) mmol/L Chloride 106 (101-111) mmol/L Carbon Dioxide 24 (21-32) mmol/L Anion Gap 10.0 (6-13) BUN 10 (6-20) mg/dL Creatinine 0.8 (0.6-1.2) mg/dL Estimated GFR (MDRD) 101 (>89) Glucose 120 H (70-100) mg/dL Calcium 8.3 L (8.5-10.3) mg/dL Magnesium 2.0 (1.7-2.8) mg/dL C-Reactive Protein 10.8 H (0-1.0) mg/dL ABX Reporting Has patient been on IV antibiotics over the past 48 hours?: Yes Assessment/Plan - Problem List (1) Diverticulitis of colon with perforation Impression: Because patient has worsening abdominal pain, patient still had elevated WBC and elevated CRP. Previous CAT scan of abdomen show diverticulitis with perforation and gas, We will consult with the surgeon and he will see the patient this afternoon, and we will order CAT scan of the abdomen with pelvis, Continue intravenous antibiotics, Continue pain control. Qualifiers: Diverticulitis bleeding: without bleeding Qualified Code(s): K57.20 - Diverticulitis of large intestine with perforation and abscess without bleeding
--- NOTE | 2020-09-17 12:34 | CT Report ---
PROCEDURE: Abdomen/Pelvis W INDICATIONS: abdominal pain, if perforation of diverticulitis CONTRAST: IV CONTRAST: Optiray 320 ml: 100 PO CONTRAST: *NO PO CONTRAST TECHNIQUE: After the administration of nonionic contrast, 5 mm thick sections acquired from the diaphragms to th e symphysis. 5 mm thick coronal and sagittal reformats were acquired. For radiation dose reduction, the following was used: automated exposure control, adjustment of mA and/or kV according to patient size. COMPARISON: Prior CT abdomen/pelvis 09/13/2020. FINDINGS: Image quality: Excellent. ABDOMEN: Lung bases: Lung bases are clear. Heart size is normal. Solid organs: Liver and spleen are normal in size and enhancement. Gallbladder partially contracted Biliary system is non dilated. Pancreas enhances normally. No adrenal nodules. Kidneys demonstra te normal size and enhancement, without hydronephrosis. Peritoneum and bowel: Bowel loops demonstrate normal wall thickness and caliber. No free fluid or a ir. Nodes and vessels: No retroperitoneal or mesenteric adenopathy by size criteria. Aorta and inferior vena cava are normal in size. Miscellaneous: No ventral hernias. PELVIS: Genitourinary: Bladder wall thickness is normal. Miscellaneous: No inguinal hernias or adenopathy. The diverticulitis previously identified within riddhi wiley sigmoid bowel has progressed, worsening, with now contain gas external to the lumen of the sigmoid colon. This gas does not migrate cephalad or anteriorly into the intraperitoneal cavity, but rather is contained within the immediate adjacent soft tissues along the posterior half of the sigmoid colon . A focal abscess is not associated. Increased inflammation within the peritoneal margins is present. Bones: No suspicious bony lesions. No vertebral body compression fractures. IMPRESSION: Worsening sigmoid diverticulitis now with increasing peritoneal inflammation, extralumin al gas contained at the wall of the sigmoid colon, no abscess formation, and worsening peritoneal inf lammation deep within the pelvis. The presence of contained gas within the wall of the sigmoid colon may indicate early necrosis. These findings were immediately called to and discussed in detail with riddhi wiley ordering health care provider, and will contact the surgical team. Reviewed by: Dev Mcmanus MD on 09/17/2020 12:33 PM PST Approved by: Dev Mcmanus MD on 09/17/2020 12:33 PM PST Station ID: [id number]
[2020-09-17] MEDS ORDERED: PIPERACILLIN/TAZOBACTAM 4.5 GM in SODIUM CHLORIDE 0.9% MINIBAG 100 ML IV SCH (14:19)
--- NOTE | 2020-09-17 16:34 | HISTORY & PHYSICAL EXAMINATION ---
Chief Complaint - Chief Complaint Chief Complaint: left lower abdominal pain Abdominal Pain HPI - Admitted From Admitted from: ED - History Obtained From History obtained from: Patient Exam limitations: No limitations - History of Present Illness Severity at the worst: Moderate Pain Quality: Sharp Timing: Gradual onset, Other (worse this am. better this afternoon) HPI Comment/Other: left lower quadrant pain for a few days. worse this am. better this afternoon. he had been eating and drinking. pain started shortly after trying to have a bm. he denies nausea, vomiting, significant tenderness, diffuse abdominal pain. he had similar pain a few years ago and several minor episodes of pain over the last 3 to 4 years. he had a colonoscopy 8 years ago which showed diverticulosis. no polyps PMH/PSH - Past Medical History Cardiovascular: positive: None Respiratory: positive: None Neuro: positive: None Endocrine/Autoimmune: positive: None GI: positive: Diverticulitis : positive: None HEENT: positive: None Psych: positive: None Musculoskeletal: positive: None Derm: positive: None MRSA Hx?: No - Past Surgical History Ortho: positive: Arthroscopic surgery HEENT: positive: Tonsil/Adenoidectomy Social & Family Hx - Social History Does the pt smoke?: Yes Smoking Status: Current every day smoker - POLST Patient has POLST: No POLST Status: Full Code Meds/Allgy - Home Medications Home Medications: Ambulatory Orders Medication Instructions Recorded Confirmed No Known Home Medications 09/15/20 09/15/20 - Allergies Allergies/Adverse Reactions: Allergies Allergy/AdvReac Type Severity Reaction Status Date / Time No Known Drug Allergies Allergy Verified 09/13/20 20:48 Review of Systems - Other Findings Other Findings: 10 pt ros as above otherwise unremarkable Exam - Vital Signs Reviewed Vital Signs: Yes Vital Signs: Vital Signs x48h Temp Pulse Resp BP BP Pulse Ox 09/17/20 16:26 37.2 C 53 L 16 133/77 H 96 09/17/20 13:00 36.8 C 57 L 18 129/68 95 09/17/20 09:00 37.0 C 71 20 166/86 H 99 - Physical Exam General Appearance: positive: No acute distress, Alert, Mild distress Eyes Bilateral: positive: Normal inspection, PERRL, EOMI ENT: positive: No signs of dehydration Neck: positive: No JVD, Trachea midline Respiratory: positive: No respiratory distress Abdomen: positive: No distention, Other (minimal left lower quadrant tenderness to deep palpation) Neurologic/Psychiatric: positive: Oriented x3 Results - Lab Results Fish Bones: 09/17/20 05:15 09/17/20 05:15 Other Lab Results: Lab Results x24hrs 09/17/20 09/17/20 09/17/20 Range/Units 05:15 05:15 05:15 WBC 13.2 H (4.8-10.8) x10^3/uL RBC 4.37 L (4.70-6.10) 10^6/uL Hgb 13.1 L (14.0-18.0) g/dL Hct 39.3 L (42.0-52.0) % MCV 89.9 (80.0-94.0) fL MCH 30.0 (27.0-31.0) pg MCHC 33.3 (32.0-36.0) g/dL RDW 12.2 (12.0-15.0) % Plt Count 183 (130-450) 10^3/uL MPV 10.8 (7.4-11.4) fL Neut # (Auto) 10.6 H (1.5-6.6) 10^3/uL Lymph # (Auto) 1.5 (1.5-3.5) 10^3/uL [place] # (Auto) 0.9 (0.0-1.0) 10^3/uL Eos # (Auto) 0.2 (0.0-0.7) 10^3/uL Baso # (Auto) 0.0 (0.0-0.1) 10^3/uL Absolute Nucleated RBC 0.00 x10^3/uL Nucleated RBC % 0.0 /100WBC Sodium 140 (135-145) mmol/L Potassium 3.5 (3.5-5.0) mmol/L Chloride 106 (101-111) mmol/L Carbon Dioxide 24 (21-32) mmol/L Anion Gap 10.0 (6-13) BUN 10 (6-20) mg/dL Creatinine 0.8 (0.6-1.2) mg/dL Estimated GFR (MDRD) 101 (>89) Glucose 120 H (70-100) mg/dL Calcium 8.3 L (8.5-10.3) mg/dL Magnesium 2.0 (1.7-2.8) mg/dL C-Reactive Protein 10.8 H (0-1.0) mg/dL - Diagnostic Imaging Results Diagnostic Imaging Results: positive: Read independently (diverticulitis with contained rupture) Impression/Plan - Problem List Problem List: diverticulitis with contained rupture. recommend npo, continue present care. close observation. if he develops diffuse pain, not improving plan colectomy and colostomy. We discussed he may develop an abscess needing IR drainage. If he is able to avoid a colostomy this hospitalization he should consider elective sigmoid leila ctomy after inflammation has resolved
[2020-09-17] MEDS: PIPERACILLIN/TAZOBACTAM 3.375 GM in SODIUM CHLORIDE 0.9% MINIBAG 100 ML IV SCH (16:59)
[2020-09-17] MEDS ORDERED: PIPERACILLIN/TAZOBACTAM 3.375 GM in SODIUM CHLORIDE 0.9% MINIBAG 100 ML IV SCH (17:00)
[2020-09-18] MEDS: ACETAMINOPHEN 325 MG TABLET PO PRN ×3 (01:09→16:05)
[2020-09-18] MEDS: PIPERACILLIN/TAZOBACTAM 3.375 GM in SODIUM CHLORIDE 0.9% MINIBAG 100 ML IV SCH ×3 (01:09→17:01)
[2020-09-18] MEDS: oxyCODONE 5 MG TABLET PO PRN ×3 (01:09→16:04)
[2020-09-18] MEDS: SODIUM CHLORIDE FLUSH 0.9% 10 ML SYRINGE IVP SCH ×3 (01:10→17:02)
[2020-09-18 05:10] LABS: BASOPHILS # (AUTO) 0.1 10^3/uL (0.0-0.1); BASOPHILS % (AUTO) 0.4 %; EOSINOPHILS # (AUTO) 0.2 10^3/uL (0.0-0.7); EOSINOPHILS % (AUTO) 1.4 %; HCT - HEMATOCRIT 39.7 % (42.0-52.0); HGB - HEMOGLOBIN 13.3 g/dL (14.0-18.0); LYMPHOCYTES # (AUTO) 1.7 10^3/uL (1.5-3.5); LYMPHOCYTES % (AUTO) 12.5 %; MEAN CORPUSCULAR HEMOGLOBIN 29.8 pg (27.0-31.0); MEAN CORPUSCULAR HGB CONC 33.5 g/dL (32.0-36.0); MEAN PLATELET VOLUME 10.8 fL (7.4-11.4); MONOCYTES # (AUTO) 0.8 10^3/uL (0.0-1.0); MONOCYTES % (AUTO) 5.8 %; NEUTROPHILS # (AUTO) 10.8 10^3/uL (1.5-6.6); NEUTROPHILS % (AUTO) 79.2 %; PLT - PLATELET COUNT 225 10^3/uL (130-450); RED BLOOD COUNT 4.46 10^6/uL (4.70-6.10); RED CELL DISTRIBUTION WIDTH 12.1 % (12.0-15.0); WHITE BLOOD COUNT 13.6 x10^3/uL (4.8-10.8)
[2020-09-18 05:26] LABS: CALCIUM 8.6 mg/dL (8.5-10.3); CRP - C-REACTIVE PROTEIN 8.8 mg/dL (0-1.0); POTASSIUM 3.6 mmol/L (3.5-5.0)
[2020-09-18] MEDS: PANTOPRAZOLE 40 MG TABLET PO SCH (06:33)
[2020-09-18] MEDS: ENOXAPARIN 40 MG/0.4 ML SYRINGE SUBQ SCH (08:26)
[2020-09-18] MEDS: D5.45NS W/20 MEQ KCL 1,000 ML IV SCH ×2 (09:19→21:10)
[2020-09-18] MEDS: KETOROLAC 15 MG/ML VIAL IVP PRN (11:17)
--- NOTE | 2020-09-18 12:04 | PROVIDER PROGRESS NOTE ---
Assessment/Plan - Problem List (1) Diverticulitis of colon with perforation Qualifiers: Diverticulitis bleeding: without bleeding Qualified Code(s): K57.20 - Diverticulitis of large intestine with perforation and abscess without bleeding Assessment/Plan: 2/3 Patient's left low abdominal pain is a slightly reduced, But the patient still had elevated WBC, elevated CRP. I called the surgeon, surgeon state he will assess patient daily by daily, hopefully pt does not need colectomy and colostomy. Continue antibiotics Zosyn, continue NPO with D5 IVF, continue pain control Because patient has worsening abdominal pain, patient still had elevated WBC and elevated CRP. Previous CAT scan of abdomen show diverticulitis with perforation and gas, We will consult with the surgeon and he will see the patient this afternoon, and we will order CAT scan of the abdomen with pelvis, Continue intravenous antibiotics, Continue pain control. - Current Meds Current Meds: Current Medications Generic Name Dose Route Start Last Admin Trade Name Freq PRN Reason Stop Dose Admin Acetaminophen 650 mg 09/13/20 22:36 09/18/20 06:31 Acetaminophen 325 Mg Tablet PO 650 mg Q4HR PRN Administration Pain 1 to 4 Enoxaparin Sodium 40 mg 09/14/20 09:00 09/18/20 08:26 Enoxaparin 40 Mg/0.4 Ml Syringe SUBQ Not Given DAILY [facility] Piperacillin Sod/Tazobactam 100 mls @ 25 mls/hr 09/17/20 17:00 09/18/20 10:54 Sod 3.375 gm/ Sodium Chloride IV 25 mls/hr Q8H [facility] Infusion Potassium Chloride/Dextrose/Sod Cl 1,000 mls @ 100 mls/hr 09/18/20 08:00 09/18/20 11:59 D5.45ns W/20 Meq Kcl IV 100 mls/hr .Q10H [facility] Infusion Ketorolac Tromethamine 15 mg 09/18/20 09:01 09/18/20 11:17 Ketorolac 15 Mg/Ml Vial IVP 09/23/20 09:00 15 mg Q6HR PRN Administration PAIN Ondansetron HCl 4 mg 09/13/20 22:36 09/14/20 12:30 Ondansetron 4 Mg/2 Ml Vial IVP 4 mg Q6HR PRN Administration Nausea / Vomiting Oxycodone HCl 5 mg 09/13/20 22:36 09/18/20 06:31 Oxycodone 5 Mg Tablet PO 5 mg Q4HR PRN Administration Pain 5 to 7 Pantoprazole Sodium 40 mg 09/14/20 07:00 09/18/20 06:33 Pantoprazole 40 Mg Tablet PO 40 mg QDAC [facility] Administration Sodium Chloride 10 ml 09/14/20 01:00 09/18/20 08:26 Sodium Chloride Flush 0.9% 10 Ml Syringe IVP Not Given 0100,0900,1700 [facility] - Lab Result Fish Bone Diagrams: 09/18/20 04:43 09/18/20 04:43 - Additional Planning My Orders: My Active Orders 09/17/20 11:31 hydrALAZINE INJ [Apresoline Inj] 10 mg IVP Q4H PRN 09/17/20 14:12 NPO except Meds [DIET] 09/17/20 17:00 Piperacillin/Tazobactam [Zosyn] 3.375 gm Sodium Chloride 0.9% Minibag [Normal Saline 0.9% Minibag] 100 ml IV Q8H 09/18/20 08:00 D5.45ns W/20 Meq KCl 1,000 ml IV 100 mls/hr 09/18/20 09:01 Ketorolac Inj (15Mg) [Toradol Inj (15Mg)] 15 mg IVP Q6HR PRN 09/19/20 05:00 BMP - BASIC METABOLIC PANEL [CHEM] DAILYLAB CBC - COMP BLD CT W/AUTO DIFF [HEME] DAILYLAB CRP - C-REACTIVE PROTEIN [CHEM] DAILYLAB 09/20/20 05:00 BMP - BASIC METABOLIC PANEL [CHEM] DAILYLAB CBC - COMP BLD CT W/AUTO DIFF [HEME] DAILYLAB CRP - C-REACTIVE PROTEIN [CHEM] DAILYLAB 09/21/20 05:00 BMP - BASIC METABOLIC PANEL [CHEM] DAILYLAB CBC - COMP BLD CT W/AUTO DIFF [HEME] DAILYLAB CRP - C-REACTIVE PROTEIN [CHEM] DAILYLAB 09/22/20 05:00 BMP - BASIC METABOLIC PANEL [CHEM] DAILYLAB CBC - COMP BLD CT W/AUTO DIFF [HEME] DAILYLAB CRP - C-REACTIVE PROTEIN [CHEM] DAILYLAB 09/23/20 05:00 BMP - BASIC METABOLIC PANEL [CHEM] DAILYLAB CBC - COMP BLD CT W/AUTO DIFF [HEME] DAILYLAB CRP - C-REACTIVE PROTEIN [CHEM] DAILYLAB Subjective - Subjective Patient Reports: Feeling Better Objective Vital Signs: Vital Signs - 24 hr 09/17/20 09/17/20 09/17/20 13:00 16:26 20:07 Temperature 36.8 C 37.2 C 36.9 C Heart Rate [ 57 L 53 L 58 L Brachial] Respiratory 18 16 16 Rate Blood Pressure 129/68 [Left Brachial artery] Blood Pressure 133/77 H 126/67 [Right Brachial artery] O2 Saturation 95 96 96 09/17/20 09/18/20 09/18/20 23:35 04:35 09:00 Temperature 36.9 C 36.5 C 36.8 C Heart Rate [ 53 L 51 L 58 L Brachial] Respiratory 16 16 18 Rate Blood Pressure [Left Brachial artery] Blood Pressure 139/86 H 138/79 H 148/88 H [Right Brachial artery] O2 Saturation 96 97 96 Oxygen O2 Source Room air I&O (Last 24 Hrs): Intake and Output Totals x24h 09/16/20 09/17/20 09/18/20 23:59 23:59 23:59 Intake Total 4510.000 3080 1206.666 Output Total 500 Balance 4510.000 3080 706.666 General: Alert, Oriented x3, Cooperative, No acute distress HEENT: Atraumatic, PERRLA Neck: Supple Lymphatic: no adenopathy Neuro: Alert, Non Focal, Oriented Times 3 Cardiovascular: Regular rate, Normal S1, Normal S2 Respiratory: Chest non-tender, No respiratory distress, Breath sounds nml Abdomen: Normal bowel sounds, Soft, Other (mild tenderness on left lower abdomen, otherwise pt's abdomen is soft, good bowel sound) Extremities: Normal pulses Skin: No breakdown - Results Results: Laboratory Results WBC 13.6 x10^3/uL (4.8-10.8) H 09/18/20 04:43 RBC 4.46 10^6/uL (4.70-6.10) L 09/18/20 04:43 Hgb 13.3 g/dL (14.0-18.0) L 09/18/20 04:43 Hct 39.7 % (42.0-52.0) L 09/18/20 04:43 MCV 89.0 fL (80.0-94.0) 09/18/20 04:43 MCH 29.8 pg (27.0-31.0) 09/18/20 04:43 MCHC 33.5 g/dL (32.0-36.0) 09/18/20 04:43 RDW 12.1 % (12.0-15.0) 09/18/20 04:43 Plt Count 225 10^3/uL (130-450) 09/18/20 04:43 MPV 10.8 fL (7.4-11.4) 09/18/20 04:43 Neut # (Auto) 10.8 10^3/uL (1.5-6.6) H 09/18/20 04:43 Lymph # (Auto) 1.7 10^3/uL (1.5-3.5) 09/18/20 04:43 [place] # (Auto) 0.8 10^3/uL (0.0-1.0) 09/18/20 04:43 Eos # (Auto) 0.2 10^3/uL (0.0-0.7) 09/18/20 04:43 Baso # (Auto) 0.1 10^3/uL (0.0-0.1) 09/18/20 04:43 Absolute Nucleated RBC 0.00 x10^3/uL 09/18/20 04:43 Total Counted 100 09/14/20 04:36 Band Neuts % (Manual) 0 % (0-10) 09/14/20 04:36 Abnorm Lymph % (Manual) 0 % 09/14/20 04:36 Nucleated RBC % 0.0 /100WBC 09/18/20 04:43 Neutrophils # (Manual) 18.2 10^3/uL (1.5-6.6) H 09/14/20 04:36 Lymphocytes # (Manual) 1.0 10^3/uL (1.5-3.5) L 09/14/20 04:36 Monocytes # (Manual) 1.0 10^3/uL (0.0-1.0) 09/14/20 04:36 Eosinophils # (Manual) 0.0 10^3/uL (0-0.7) 09/14/20 04:36 Basophils # (Manual) 0.0 10^3/uL (0-0.1) 09/14/20 04:36 Differential Comment MANUAL DIFFERENTIAL 09/14/20 04:36 WBC Morphology NORMAL APPEARANCE (NORMAL) 09/14/20 04:36 Platelet Estimate NORMAL (130-450,000) (NORMAL) 09/14/20 04:36 Platelet Morphology NORMAL APPEARANCE (NORMAL) 09/14/20 04:36 RBC Morph Micro Appear NORMAL APPEARANCE (NORMAL) 09/14/20 04:36 Sodium 140 mmol/L (135-145) 09/18/20 04:43 Potassium 3.6 mmol/L (3.5-5.0) 09/18/20 04:43 Chloride 107 mmol/L (101-111) 09/18/20 04:43 Carbon Dioxide 25 mmol/L (21-32) 09/18/20 04:43 Anion Gap 8.0 (6-13) 09/18/20 04:43 BUN 9 mg/dL (6-20) 09/18/20 04:43 Creatinine 1.0 mg/dL (0.6-1.2) 09/18/20 04:43 Estimated GFR (MDRD) 78 (>89) L 09/18/20 04:43 Glucose 114 mg/dL (70-100) H 09/18/20 04:43 Lactic Acid 0.9 mmol/L (0.5-2.2) 09/13/20 21:54 Calcium 8.6 mg/dL (8.5-10.3) 09/18/20 04:43 Magnesium 2.0 mg/dL (1.7-2.8) 09/17/20 05:15 Total Bilirubin 0.9 mg/dL (0.2-1.0) 09/13/20 21:44 AST 18 IU/L (10-42) 09/13/20 21:44 ALT 18 IU/L (10-60) 09/13/20 21:44 Alkaline Phosphatase 58 IU/L (42-121) 09/13/20 21:44 C-Reactive Protein 8.8 mg/dL (0-1.0) H 09/18/20 04:43 Total Protein 6.9 g/dL (6.7-8.2) 09/13/20 21:44 Albumin 3.8 g/dL (3.2-5.5) 09/13/20 21:44 Globulin 3.1 g/dL (2.1-4.2) 09/13/20 21:44 Albumin/Globulin Ratio 1.2 (1.0-2.2) 09/13/20 21:44 Lipase 25 U/L (22-51) 09/13/20 21:44 Nasal Adenovirus (PCR) NOT DETECTED 09/14/20 00:00 Nasal B. parapertussis DNA (PCR) NOT DETECTED 09/14/20 00:00 Nasal Coronavir 229E PCR NOT DETECTED 09/14/20 00:00 Nasal Coronavir HKU1 PCR NOT DETECTED 09/14/20 00:00 Nasal Coronavir NL63 PCR NOT DETECTED 09/14/20 00:00 Nasal Coronavir OC43 PCR NOT DETECTED 09/14/20 00:00 Nasal Enterovir/Rhinovir PCR NOT DETECTED 09/14/20 00:00 Nasal Influenza B PCR NOT DETECTED 09/14/20 00:00 Nasal Influenza A PCR NOT DETECTED 09/14/20 00:00 Nasal Parainfluen 1 PCR NOT DETECTED 09/14/20 00:00 Nasal Parainfluen 2 PCR NOT DETECTED 09/14/20 00:00 Nasal Parainfluen 3 PCR NOT DETECTED 09/14/20 00:00 Nasal Parainfluen 4 PCR NOT DETECTED 09/14/20 00:00 Nasal RSV (PCR) NOT DETECTED 09/14/20 00:00 Nasal Screen MRSA (PCR) NEGATIVE (NEGATIVE) 09/14/20 00:35 Nasal B.pertussis DNA PCR NOT DETECTED 09/14/20 00:00 Nasal C.pneumoniae (PCR) NOT DETECTED 09/14/20 00:00 Julio Human Metapneumo PCR NOT DETECTED 09/14/20 00:00 Nasal M.pneumoniae (PCR) NOT DETECTED 09/14/20 00:00 Nasal SARS-CoV-2 (PCR) NOT DETECTED 09/14/20 00:00 Stl C. diff Tox B Gene NEGATIVE (NEGATIVE) 09/15/20 11:04 - Procedures Procedures: Procedures COLONOSCOPY (05/29/13) ABX Reporting Has patient been on IV antibiotics over the past 48 hours?: Yes Current Medications - Current Medications Current Medications: Active Medications Acetaminophen (Acetaminophen 325 Mg Tablet) 650 mg PO Q4HR PRN PRN Reason: Pain 1 to 4 Last Admin: 09/18/20 06:31 Dose: 650 mg Documented by: Enoxaparin Sodium (Enoxaparin 40 Mg/0.4 Ml Syringe) 40 mg SUBQ DAILY [facility] Last Admin: 09/18/20 08:26 Dose: Not Given Documented by: Hydralazine HCl (Hydralazine Inj 20 Mg/Ml Vial) 10 mg IVP Q4H PRN PRN Reason: PRN if SBP>170 Piperacillin Sod/Tazobactam (Sod 3.375 gm/ Sodium Chloride) 100 mls @ 25 mls/hr IV Q8H [facility] Last Infusion: 09/18/20 10:54 Dose: 25 mls/hr Documented by: Potassium Chloride/Dextrose/Sod Cl (D5.45ns W/20 Meq Kcl) 1,000 mls @ 100 mls/hr IV .Q10H [facility] Last Infusion: 09/18/20 11:59 Dose: 100 mls/hr Documented by: Ketorolac Tromethamine (Ketorolac 15 Mg/Ml Vial) 15 mg IVP Q6HR PRN PRN Reason: PAIN Stop: 09/23/20 09:00 Last Admin: 09/18/20 11:17 Dose: 15 mg Documented by: Ondansetron HCl (Ondansetron 4 Mg/2 Ml Vial) 4 mg IVP Q6HR PRN PRN Reason: Nausea / Vomiting Last Admin: 09/14/20 12:30 Dose: 4 mg Documented by: Oxycodone HCl (Oxycodone 5 Mg Tablet) 5 mg PO Q4HR PRN PRN Reason: Pain 5 to 7 Last Admin: 09/18/20 06:31 Dose: 5 mg Documented by: Pantoprazole Sodium (Pantoprazole 40 Mg Tablet) 40 mg PO QDAC [facility] Last Admin: 09/18/20 06:33 Dose: 40 mg Documented by: Sodium Chloride (Sodium Chloride Flush 0.9% 10 Ml Syringe) 10 ml IVP PRN PRN PRN Reason: NEEDED PER PROVIDER ORDERS Sodium Chloride (Sodium Chloride Flush 0.9% 10 Ml Syringe) 10 ml IVP 0 100,0900,1700 [facility] Last Admin: 09/18/20 08:26 Dose: Not Given Documented by: No Known Home Medications 09/15/20
--- NOTE | 2020-09-18 12:21 | PROVIDER PROGRESS NOTE ---
Subjective - Prog Note Date Prog Note Date: 09/18/20 - Subjective Pt reports feeling: Improved (He has minimal pain. Passing gas and small bm today.) Objective - Vital Signs/Intake & Output Vital Signs: Vital Signs x48h Temp Pulse Resp BP Pulse Ox 09/18/20 09:00 36.8 C 58 L 18 148/88 H 96 09/18/20 04:35 36.5 C 51 L 16 138/79 H 97 Intake & Output: Intake & Output 09/15/20 09/16/20 09/17/20 09/18/20 23:59 23:59 23:59 23:59 Intake Total 3895.000 4510.000 3080 1206.666 Output Total 500 Balance 3895.000 4510.000 3080 706.666 - Objective General Appearance: positive: No acute distress, Alert Eyes Bilateral: positive: Normal inspection, PERRL, EOMI ENT: positive: No signs of dehydration Neck: positive: No JVD, Trachea midline Respiratory: positive: No respiratory distress Abdomen: positive: No distention, Other (soft. minimal left lower quadrant tenderness) Neurologic/Psychiatric: positive: Oriented x3 - Lab Results Fish Bones: 09/18/20 04:43 09/18/20 04:43 Other Labs: Lab Results x24hrs 09/18/20 09/18/20 Range/Units 04:43 04:43 WBC 13.6 H (4.8-10.8) x10^3/uL RBC 4.46 L (4.70-6.10) 10^6/uL Hgb 13.3 L (14.0-18.0) g/dL Hct 39.7 L (42.0-52.0) % MCV 89.0 (80.0-94.0) fL MCH 29.8 (27.0-31.0) pg MCHC 33.5 (32.0-36.0) g/dL RDW 12.1 (12.0-15.0) % Plt Count 225 (130-450) 10^3/uL MPV 10.8 (7.4-11.4) fL Neut # (Auto) 10.8 H (1.5-6.6) 10^3/uL Lymph # (Auto) 1.7 (1.5-3.5) 10^3/uL [place] # (Auto) 0.8 (0.0-1.0) 10^3/uL Eos # (Auto) 0.2 (0.0-0.7) 10^3/uL Baso # (Auto) 0.1 (0.0-0.1) 10^3/uL Absolute Nucleated RBC 0.00 x10^3/uL Nucleated RBC % 0.0 /100WBC Sodium 140 (135-145) mmol/L Potassium 3.6 (3.5-5.0) mmol/L Chloride 107 (101-111) mmol/L Carbon Dioxide 25 (21-32) mmol/L Anion Gap 8.0 (6-13) BUN 9 (6-20) mg/dL Creatinine 1.0 (0.6-1.2) mg/dL Estimated GFR (MDRD) 78 L (>89) Glucose 114 H (70-100) mg/dL Calcium 8.6 (8.5-10.3) mg/dL C-Reactive Protein 8.8 H (0-1.0) mg/dL Assessment/Plan - Problem List (1) Diverticulitis of colon with perforation Impression: He feels better than yesterday. He has minimal pain and tenderness. Afebrile. WBC 13. Passing gas and small bm. Continue npo today close observation. will follow daily. perhaps clears tomorrow. Qualifiers: Diverticulitis bleeding: without bleeding Qualified Code(s): K57.20 - Diverticulitis of large intestine with perforation and abscess without bleeding
[2020-09-19] MEDS: PIPERACILLIN/TAZOBACTAM 3.375 GM in SODIUM CHLORIDE 0.9% MINIBAG 100 ML IV SCH ×3 (00:10→17:28)
[2020-09-19] MEDS: SODIUM CHLORIDE FLUSH 0.9% 10 ML SYRINGE IVP SCH ×3 (00:11→17:28)
[2020-09-19] MEDS: KETOROLAC 15 MG/ML VIAL IVP PRN ×2 (00:21→21:15)
[2020-09-19] MEDS: SODIUM CHLORIDE FLUSH 0.9% 10 ML SYRINGE IVP PRN (05:18)
[2020-09-19] MEDS: D5.45NS W/20 MEQ KCL 1,000 ML IV SCH (05:18)
[2020-09-19 05:23] LABS: BASOPHILS # (AUTO) 0.1 10^3/uL (0.0-0.1); BASOPHILS % (AUTO) 0.5 %; EOSINOPHILS # (AUTO) 0.2 10^3/uL (0.0-0.7); EOSINOPHILS % (AUTO) 1.1 %; HCT - HEMATOCRIT 44.5 % (42.0-52.0); HGB - HEMOGLOBIN 14.5 g/dL (14.0-18.0); LYMPHOCYTES # (AUTO) 2.1 10^3/uL (1.5-3.5); LYMPHOCYTES % (AUTO) 14.1 %; MEAN CORPUSCULAR HEMOGLOBIN 29.3 pg (27.0-31.0); MEAN CORPUSCULAR HGB CONC 32.6 g/dL (32.0-36.0); MEAN CORPUSCULAR VOLUME 89.9 fL (80.0-94.0); MEAN PLATELET VOLUME 10.8 fL (7.4-11.4); MONOCYTES # (AUTO) 0.7 10^3/uL (0.0-1.0); MONOCYTES % (AUTO) 4.6 %; NEUTROPHILS # (AUTO) 11.6 10^3/uL (1.5-6.6); NEUTROPHILS % (AUTO) 78.8 %; PLT - PLATELET COUNT 276 10^3/uL (130-450); RED BLOOD COUNT 4.95 10^6/uL (4.70-6.10); RED CELL DISTRIBUTION WIDTH 12.1 % (12.0-15.0); WHITE BLOOD COUNT 14.7 x10^3/uL (4.8-10.8)
[2020-09-19] MEDS: PANTOPRAZOLE 40 MG TABLET PO SCH (05:28)
[2020-09-19 05:47] LABS: CALCIUM 8.9 mg/dL (8.5-10.3); CREATININE 1.1 mg/dL (0.6-1.2); CRP - C-REACTIVE PROTEIN 7.5 mg/dL (0-1.0); POTASSIUM 4.6 mmol/L (3.5-5.0)
[2020-09-19] MEDS: ACETAMINOPHEN 325 MG TABLET PO PRN ×2 (08:24→15:43)
[2020-09-19] MEDS: ENOXAPARIN 40 MG/0.4 ML SYRINGE SUBQ SCH (08:25)
[2020-09-19] MEDS: oxyCODONE 5 MG TABLET PO PRN ×2 (08:25→15:44)
[2020-09-19] MEDS: DEXTROSE 5%-0.45% NACL 1,000 ML IV SCH ×2 (08:25→19:14)
--- NOTE | 2020-09-19 09:52 | PROVIDER PROGRESS NOTE ---
Subjective - Subjective Pt reports feeling: Improved (passing gas. no nausea. minimal pain) Objective - Vital Signs/Intake & Output Reviewed Vital Signs: Yes Vital Signs: Vital Signs x48h Temp Pulse Resp BP Pulse Ox 09/19/20 08:49 36.7 C 54 L 14 146/80 H 95 09/19/20 05:00 36.7 C 52 L 16 153/84 H 98 Intake & Output: Intake & Output 09/16/20 09/17/20 09/18/20 09/19/20 23:59 23:59 23:59 23:59 Intake Total 4510.000 3080 2300.000 1266.663 Output Total 1350 1300 Balance 4510.000 3080 950.000 -33.337 - Objective General Appearance: positive: No acute distress, Alert Eyes Bilateral: positive: Normal inspection, PERRL ENT: positive: No signs of dehydration Respiratory: positive: No respiratory distress Abdomen: positive: No distention, Other (minimal left lower quadrant tenderness) - Lab Results Fish Bones: 09/19/20 04:46 09/19/20 04:46 Other Labs: Lab Results x24hrs 09/19/20 09/19/20 Range/Units 04:46 04:46 WBC 14.7 H (4.8-10.8) x10^3/uL RBC 4.95 (4.70-6.10) 10^6/uL Hgb 14.5 (14.0-18.0) g/dL Hct 44.5 (42.0-52.0) % MCV 89.9 (80.0-94.0) fL MCH 29.3 (27.0-31.0) pg MCHC 32.6 (32.0-36.0) g/dL RDW 12.1 (12.0-15.0) % Plt Count 276 (130-450) 10^3/uL MPV 10.8 (7.4-11.4) fL Neut # (Auto) 11.6 H (1.5-6.6) 10^3/uL Lymph # (Auto) 2.1 (1.5-3.5) 10^3/uL [place] # (Auto) 0.7 (0.0-1.0) 10^3/uL Eos # (Auto) 0.2 (0.0-0.7) 10^3/uL Baso # (Auto) 0.1 (0.0-0.1) 10^3/uL Absolute Nucleated RBC 0.00 x10^3/uL Nucleated RBC % 0.0 /100WBC Sodium 140 (135-145) mmol/L Potassium 4.6 (3.5-5.0) mmol/L Chloride 105 (101-111) mmol/L Carbon Dioxide 25 (21-32) mmol/L Anion Gap 10.0 (6-13) BUN 8 (6-20) mg/dL Creatinine 1.1 (0.6-1.2) mg/dL Estimated GFR (MDRD) 70 L (>89) Glucose 129 H (70-100) mg/dL Calcium 8.9 (8.5-10.3) mg/dL C-Reactive Protein 7.5 H (0-1.0) mg/dL Assessment/Plan - Problem List (1) Diverticulitis of colon with perforation Impression: clinically he is doing well. No fever, distension. Minimal pain. No peritonitis. Plan clears. We again discussed he might develop an abscess needing IR drainage. If not improving daily plan ct scan during this hospitalization or as an outpatient in 5 to 7 days Will continue to see daily until d/c Qualifiers: Diverticulitis bleeding: without bleeding Qualified Code(s): K57.20 - Diverticulitis of large intestine with perforation and abscess without bleeding
--- NOTE | 2020-09-19 14:48 | PROVIDER PROGRESS NOTE ---
Progress Note General surgery follow-up: No changes Objective General Appearance: positive: No acute distress Eyes Bilateral: positive: Normal inspection ENT: positive: ENT inspection nml Neck: positive: Nml inspection Respiratory: positive: Chest non-tender, No respiratory distress, Breath sounds nml. negative: Wheezes, Rales, Rhonchi Cardiovascular: positive: Regular rate & rhythm Abdomen: positive: No distention, Other. negative: Guarding, Rebound. Continues with tenderness to palpation suprapubic and left lower quadrant. Extremities: positive: Non-tender, Full ROM, Nml appearance Neurologic/Psychiatric: positive: Oriented x3, CN's nml (2-12) Impression/Plan 55-year-old male presenting with recurrent diverticulitis now complicated by contained perforation. Hospitalist service called for reevaluation of the patient. This was discussed extensively with the primary consulting surgeon Dr. Sin Collins. We discussed this in concert especially in light of the patient's repeat imaging which continues to show a very large phlegmonous area without any active abscess formation and concern for persistent contained perforation. Patient continues to have leukocytosis, abdominal pain, and concerning findings on imaging. As this patient condition continues to evolve, I am pessimistic that he will not successfully navigate nonoperative management. I do believe that to Dr. Collins intent it would be optimal for the patient to avoid acute urgent surgical inte rvention in an effort to avoid a temporary ostomy, however, it appears this patient's process is declaring otherwise. I suspect that given the extent of contained perforation amongst others it will not be likely that the patient will be able to avoid operative intervention and even if he undergoes percutaneous drainage this will lead to a colocutaneous fistula as a consequence with its own associated sequelae. Any associated operative intervention will necessarily consider either Jamison's & colostomy after which the patient would opt to undergo a takedown with its associated challenges, or a resection with primary anastomosis and proximal diverting loop ileostomy to defunctionalize. Moreover, absent endoscopic screening, the patient, with whom we discussed all the above, was also advised of the potential that this could be a malignancy as well, which, in setting of perforation, would have its own associated consequences. Thus we agreed that we would continue to manage the patient and follow him clinically over the weekend however likely anticipate surgical intervention early next week. Continue with bowel rest, IV antibiotics, and consider PICC line placement. Please note that voice recognition software was used to transcribe this note and inadvertent errors might persist in spite of review and editing. I am obliged to you for your attention. I am thankful to you for allowing me to participate with you in this care of this patient.
--- NOTE | 2020-09-19 15:35 | PROVIDER PROGRESS NOTE ---
Assessment/Plan - Problem List (1) Diverticulitis of colon with perforation Qualifiers: Diverticulitis bleeding: without bleeding Qualified Code(s): K57.20 - Diverticulitis of large intestine with perforation and abscess without bleeding Assessment/Plan: 2/ improved, pt report his pain is slight reduced. continue consult with surgeon, pt is ordered clear diet now, continue IVF, pain control, pt may have image study on tomorrow to monitor the progress. 2/3 Patient's left low abdominal pain is a slightly reduced, But the patient still had elevated WBC, elevated CRP. I called the surgeon, surgeon state he will assess patient daily by daily, hopefully pt does not need colectomy and colostomy. Continue antibiotics Zosyn, continue NPO with D5 IVF, continue pain control Because patient has worsening abdominal pain, patient still had elevated WBC and elevated CRP. Previous CAT scan of abdomen show diverticulitis with perforation and gas, We will consult with the surgeon and he will see the patient this afternoon, and we will order CAT scan of the abdomen with pelvis, Continue intravenous antibiotics, Continue pain control. - Current Meds Current Meds: Current Medications Generic Name Dose Route Start Last Admin Trade Name Freq PRN Reason Stop Dose Admin Acetaminophen 650 mg 09/13/20 22:36 09/19/20 08:24 Acetaminophen 325 Mg Tablet PO 650 mg Q4HR PRN Administration Pain 1 to 4 Enoxaparin Sodium 40 mg 09/14/20 09:00 09/19/20 08:25 Enoxaparin 40 Mg/0.4 Ml Syringe SUBQ Not Given DAILY ASHWIN Piperacillin Sod/Tazobactam 100 mls @ 25 mls/hr 09/17/20 17:00 09/19/20 12:47 Sod 3.375 gm/ Sodium Chloride IV Infused Q8H ASHWIN Infusion Dextrose/Sodium Chloride 1,000 mls @ 100 mls/hr 09/19/20 08:00 09/19/20 14:59 D5.45ns IV 100 mls/hr .Q10H ASHWIN Infusion Ketorolac Tromethamine 15 mg 09/18/20 09:01 09/19/20 00:21 Ketorolac 15 Mg/Ml Vial IVP 09/23/20 09:00 15 mg Q6HR PRN Administration PAIN Ondansetron HCl 4 mg 09/13/20 22:36 09/14/20 12:30 Ondansetron 4 Mg/2 Ml Vial IVP 4 mg Q6HR PRN Administration Nausea / Vomiting Oxycodone HCl 5 mg 09/13/20 22:36 09/19/20 08:25 Oxycodone 5 Mg Tablet PO 5 mg Q4HR PRN Administration Pain 5 to 7 Pantoprazole Sodium 40 mg 09/14/20 07:00 09/19/20 05:28 Pantoprazole 40 Mg Tablet PO 40 mg QDAC ASHWIN Administration Sodium Chloride 10 ml 09/13/20 22:36 09/19/20 05:18 Sodium Chloride Flush 0.9% 10 Ml Syringe IVP 10 ml PRN PRN Administration NEEDED PER PROVIDER ORDERS Sodium Chloride 10 ml 09/14/20 01:00 09/19/20 00:21 Sodium Chloride Flush 0.9% 10 Ml Syringe IVP 10 ml 0100,0900,1700 ASHWIN Administration - Lab Result Fish Bone Diagrams: 09/19/20 04:46 09/19/20 04:46 - Additional Planning My Orders: My Active Orders 09/19/20 08:00 Dextrose 5%-0.45% NaCl [D5.45ns] 1,000 ml IV 100 mls/hr 09/20/20 05:00 BMP - BASIC METABOLIC PANEL [CHEM] DAILYLAB CBC - COMP BLD CT W/AUTO DIFF [HEME] DAILYLAB CRP - C-REACTIVE PROTEIN [CHEM] DAILYLAB 09/21/20 05:00 BMP - BASIC METABOLIC PANEL [CHEM] DAILYLAB CBC - COMP BLD CT W/AUTO DIFF [HEME] DAILYLAB CRP - C-REACTIVE PROTEIN [CHEM] DAILYLAB 09/22/20 05:00 BMP - BASIC METABOLIC PANEL [CHEM] DAILYLAB CBC - COMP BLD CT W/AUTO DIFF [HEME] DAILYLAB CRP - C-REACTIVE PROTEIN [CHEM] DAILYLAB 09/23/20 05:00 BMP - BASIC METABOLIC PANEL [CHEM] DAILYLAB CBC - COMP BLD CT W/AUTO DIFF [HEME] DAILYLAB CRP - C-REACTIVE PROTEIN [CHEM] DAILYLAB Subjective - Subjective Patient Reports: Feeling Better Objective Vital Signs: Vital Signs - 24 hr 09/18/20 09/18/20 09/19/20 15:51 20:14 00:30 Temperature 37.0 C 36.7 C 36.8 C Heart Rate [ 52 L 53 L 51 L Brachial] Respiratory 16 16 16 Rate Blood Pressure 155/80 H 139/86 H 156/92 H [Right Brachial artery] O2 Saturation 96 95 96 09/19/20 09/19/20 09/19/20 05:00 08:49 11:28 Temperature 36.7 C 36.7 C 36.8 C Heart Rate [ 52 L 54 L 57 L Brachial] Respiratory 16 14 14 Rate Blood Pressure 153/84 H 146/80 H 151/91 H [Right Brachial artery] O2 Saturation 98 95 09/19/20 15:18 Temperature 37.0 C Heart Rate [ 53 L Brachial] Respiratory 16 Rate Blood Pressure 158/81 H [Right Brachial artery] O2 Saturation 97 Oxygen O2 Source Room air I&O (Last 24 Hrs): Intake and Output Totals x24h 09/17/20 09/18/20 09/19/20 23:59 23:59 23:59 Intake Total 3080 2300.000 2388.330 Output Total 1350 1300 Balance 3080 488.930 0931.330 General: Alert, Oriented x3, Cooperative, No acute distress HEENT: Atraumatic, PERRLA Neck: Supple Lymphatic: no adenopathy Neuro: Alert, Non Focal, Oriented Times 3 Cardiovascular: Regular rate, Normal S1, Normal S2 Respiratory: Chest non-tender, No respiratory distress, Breath sounds nml Abdomen: Normal bowel sounds, Soft Extremities: Normal pulses - Results Results: Laboratory Results WBC 14.7 x10^3/uL (4.8-10.8) H 09/19/20 04:46 RBC 4.95 10^6/uL (4.70-6.10) 09/19/20 04:46 Hgb 14.5 g/dL (14.0-18.0) 09/19/20 04:46 Hct 44.5 % (42.0-52.0) 09/19/20 04:46 MCV 89.9 fL (80.0-94.0) 09/19/20 04:46 MCH 29.3 pg (27.0-31.0) 09/19/20 04:46 MCHC 32.6 g/dL (32.0-36.0) 09/19/20 04:46 RDW 12.1 % (12.0-15.0) 09/19/20 04:46 Plt Count 276 10^3/uL (130-450) 09/19/20 04:46 MPV 10.8 fL (7.4-11.4) 09/19/20 04:46 Neut # (Auto) 11.6 10^3/uL (1.5-6.6) H 09/19/20 04:46 Lymph # (Auto) 2.1 10^3/uL (1.5-3.5) 09/19/20 04:46 [place] # (Auto) 0.7 10^3/uL (0.0-1.0) 09/19/20 04:46 Eos # (Auto) 0.2 10^3/uL (0.0-0.7) 09/19/20 04:46 Baso # (Auto) 0.1 10^3/uL (0.0-0.1) 09/19/20 04:46 Absolute Nucleated RBC 0.00 x10^3/uL 09/19/20 04:46 Total Counted 100 09/14/20 04:36 Band Neuts % (Manual) 0 % (0-10) 09/14/20 04:36 Abnorm Lymph % (Manual) 0 % 09/14/20 04:36 Nucleated RBC % 0.0 /100WBC 09/19/20 04:46 Neutrophils # (Manual) 18.2 10^3/uL (1.5-6.6) H 09/14/20 04:36 Lymphocytes # (Manual) 1.0 10^3/uL (1.5-3.5) L 09/14/20 04:36 Monocytes # (Manual) 1.0 10^3/uL (0.0-1.0) 09/14/20 04:36 Eosinophils # (Manual) 0.0 10^3/uL (0-0.7) 09/14/20 04:36 Basophils # (Manual) 0.0 10^3/uL (0-0.1) 09/14/20 04:36 Differential Comment MANUAL DIFFERENTIAL 09/14/20 04:36 WBC Morphology NORMAL APPEARANCE (NORMAL) 09/14/20 04:36 Platelet Estimate NORMAL (130-450,000) (NORMAL) 09/14/20 04:36 Platelet Morphology NORMAL APPEARANCE (NORMAL) 09/14/20 04:36 RBC Morph Micro Appear NORMAL APPEARANCE (NORMAL) 09/14/20 04:36 Sodium 140 mmol/L (135-145) 09/19/20 04:46 Potassium 4.6 mmol/L (3.5-5.0) 09/19/20 04:46 Chloride 105 mmol/L (101-111) 09/19/20 04:46 Carbon Dioxide 25 mmol/L (21-32) 09/19/20 04:46 Anion Gap 10.0 (6-13) 09/19/20 04:46 BUN 8 mg/dL (6-20) 09/19/20 04:46 Creatinine 1.1 mg/dL (0.6-1.2) 09/19/20 04:46 Estimated GFR (MDRD) 70 (>89) L 09/19/20 04:46 Glucose 129 mg/dL (70-100) H 09/19/20 04:46 Lactic Acid 0.9 mmol/L (0.5-2.2) 09/13/20 21:54 Calcium 8.9 mg/dL (8.5-10.3) 09/19/20 04:46 Magnesium 2.0 mg/dL (1.7-2.8) 09/17/20 05:15 Total Bilirubin 0.9 mg/dL (0.2-1.0) 09/13/20 21:44 AST 18 IU/L (10-42) 09/13/20 21:44 ALT 18 IU/L (10-60) 09/13/20 21:44 Alkaline Phosphatase 58 IU/L (42-121) 09/13/20 21:44 C-Reactive Protein 7.5 mg/dL (0-1.0) H 09/19/20 04:46 Total Protein 6.9 g/dL (6.7-8.2) 09/13/20 21:44 Albumin 3.8 g/dL (3.2-5.5) 09/13/20 21:44 Globulin 3.1 g/dL (2.1-4.2) 09/13/20 21:44 Albumin/Globulin Ratio 1.2 (1.0-2.2) 09/13/20 21:44 Lipase 25 U/L (22-51) 09/13/20 21:44 Nasal Adenovirus (PCR) NOT DETECTED 09/14/20 00:00 Nasal B. parapertussis DNA (PCR) NOT DETECTED 09/14/20 00:00 Nasal Coronavir 229E PCR NOT DETECTED 09/14/20 00:00 Nasal Coronavir HKU1 PCR NOT DETECTED 09/14/20 00:00 Nasal Coronavir NL63 PCR NOT DETECTED 09/14/20 00:00 Nasal Coronavir OC43 PCR NOT DETECTED 09/14/20 00:00 Nasal Enterovir/Rhinovir PCR NOT DETECTED 09/14/20 00:00 Nasal Influenza B PCR NOT DETECTED 09/14/20 00:00 Nasal Influenza A PCR NOT DETECTED 09/14/20 00:00 Nasal Parainfluen 1 PCR NOT DETECTED 09/14/20 00:00 Nasal Parainfluen 2 PCR NOT DETECTED 09/14/20 00:00 Nasal Parainfluen 3 PCR NOT DETECTED 09/14/20 00:00 Nasal Parainfluen 4 PCR NOT DETECTED 09/14/20 00:00 Nasal RSV (PCR) NOT DETECTED 09/14/20 00:00 Nasal Screen MRSA (PCR) NEGATIVE (NEGATIVE) 09/14/20 00:35 Nasal B.pertussis DNA PCR NOT DETECTED 09/14/20 00:00 Nasal C.pneumoniae (PCR) NOT DETECTED 09/14/20 00:00 Julio Human Metapneumo PCR NOT DETECTED 09/14/20 00:00 Nasal M.pneumoniae (PCR) NOT DETECTED 09/14/20 00:00 Nasal SARS-CoV-2 (PCR) NOT DETECTED 09/14/20 00:00 Stl C. diff Tox B Gene NEGATIVE (NEGATIVE) 09/15/20 11:04 - Procedures Procedures: Procedures COLONOSCOPY (05/29/13) ABX Reporting Has patient been on IV antibiotics over the past 48 hours?: Yes Current Medications - Current Medications Current Medications: Active Medications Acetaminophen (Acetaminophen 325 Mg Tablet) 650 mg PO Q4HR PRN PRN Reason: Pain 1 to 4 Last Admin: 09/19/20 08:24 Dose: 650 mg Documented by: Enoxaparin Sodium (Enoxaparin 40 Mg/0.4 Ml Syringe) 40 mg SUBQ DAILY ASHWIN Last Admin: 09/19/20 08:25 Dose: Not Given Documented by: Hydralazine HCl (Hydralazine Inj 20 Mg/Ml Vial) 10 mg IVP Q4H PRN PRN Reason: PRN if SBP>170 Piperacillin Sod/Tazobactam (Sod 3.375 gm/ Sodium Chloride) 100 mls @ 25 mls/hr IV Q8H [facility] Last Infusion: 09/19/20 12:47 Dose: Infused Documented by: Dextrose/Sodium Chloride (D5.45ns) 1,000 mls @ 100 mls/hr IV .Q10H [facility] Last Infusion: 09/19/20 14:59 Dose: 100 mls/hr Documented by: Ketorolac Tromethamine (Ketorolac 15 Mg/Ml Vial) 15 mg IVP Q6HR PRN PRN Reason: PAIN Stop: 09/23/20 09:00 Last Admin: 09/19/20 00:21 Dose: 15 mg Documented by: Ondansetron HCl (Ondansetron 4 Mg/2 Ml Vial) 4 mg IVP Q6HR PRN PRN Reason: Nausea / Vomiting Last Admin: 09/14/20 12:30 Dose: 4 mg Documented by: Oxycodone HCl (Oxycodone 5 Mg Tablet) 5 mg PO Q4HR PRN PRN Reason: Pain 5 to 7 Last Admin: 09/19/20 08:25 Dose: 5 mg Documented by: Pantoprazole Sodium (Pantoprazole 40 Mg Tablet) 40 mg PO QDAC [facility] Last Admin: 09/19/20 05:28 Dose: 40 mg Documented by: Sodium Chloride (Sodium Chloride Flush 0.9% 10 Ml Syringe) 10 ml IVP PRN PRN PRN Reason: NEEDED PER PROVIDER ORDERS Last Admin: 09/19/20 05:18 Dose: 10 ml Documented by: Sodium Chloride (Sodium Chloride Flush 0.9% 10 Ml Syringe) 10 ml IVP 0100,0900,1700 [facility] Last Admin: 09/19/20 00:21 Dose: 10 ml Documented by: No Known Home Medications 09/15/20
[2020-09-20] MEDS: PIPERACILLIN/TAZOBACTAM 3.375 GM in SODIUM CHLORIDE 0.9% MINIBAG 100 ML IV SCH ×3 (01:34→17:28)
[2020-09-20] MEDS: SODIUM CHLORIDE FLUSH 0.9% 10 ML SYRINGE IVP SCH ×3 (01:39→17:28)
[2020-09-20] MEDS: DEXTROSE 5%-0.45% NACL 1,000 ML IV SCH ×2 (04:11→15:02)
[2020-09-20] MEDS: KETOROLAC 15 MG/ML VIAL IVP PRN ×3 (04:11→20:40)
[2020-09-20 05:08] LABS: BASOPHILS # (AUTO) 0.1 10^3/uL (0.0-0.1); BASOPHILS % (AUTO) 0.5 %; EOSINOPHILS # (AUTO) 0.1 10^3/uL (0.0-0.7); EOSINOPHILS % (AUTO) 0.9 %; HCT - HEMATOCRIT 40.8 % (42.0-52.0); HGB - HEMOGLOBIN 13.6 g/dL (14.0-18.0); LYMPHOCYTES # (AUTO) 1.9 10^3/uL (1.5-3.5); LYMPHOCYTES % (AUTO) 11.6 %; MEAN CORPUSCULAR HEMOGLOBIN 29.6 pg (27.0-31.0); MEAN CORPUSCULAR HGB CONC 33.3 g/dL (32.0-36.0); MEAN CORPUSCULAR VOLUME 88.7 fL (80.0-94.0); MEAN PLATELET VOLUME 10.6 fL (7.4-11.4); MONOCYTES # (AUTO) 0.9 10^3/uL (0.0-1.0); MONOCYTES % (AUTO) 5.7 %; NEUTROPHILS # (AUTO) 13.1 10^3/uL (1.5-6.6); NEUTROPHILS % (AUTO) 80.5 %; PLT - PLATELET COUNT 286 10^3/uL (130-450); WHITE BLOOD COUNT 16.2 x10^3/uL (4.8-10.8)
[2020-09-20 05:29] LABS: CALCIUM 8.9 mg/dL (8.5-10.3); CRP - C-REACTIVE PROTEIN 5.3 mg/dL (0-1.0); POTASSIUM 3.8 mmol/L (3.5-5.0)
[2020-09-20] MEDS: PANTOPRAZOLE 40 MG TABLET PO SCH (07:31)
[2020-09-20] MEDS: oxyCODONE 5 MG TABLET PO PRN ×2 (09:09→15:07)
[2020-09-20] MEDS: ACETAMINOPHEN 325 MG TABLET PO PRN ×2 (09:10→15:07)
--- NOTE | 2020-09-20 12:18 | PROVIDER PROGRESS NOTE ---
Assessment/Plan - Problem List (1) Diverticulitis of colon with perforation Qualifiers: Diverticulitis bleeding: without bleeding Qualified Code(s): K57.20 - Diverticulitis of large intestine with perforation and abscess without bleeding Assessment/Plan: 2/ pt still complain of abdominal pain, pt report his pain is some worsening than before order CT, will followup, and discuss with surgeon continue pain control, continue antibiotics, continue IVF, pt is on clear liquid diet 2/ improved, pt report his pain is slight reduced. continue consult with surgeon, pt is ordered clear diet now, continue IVF, pain control, pt may have image study on tomorrow to monitor the progress. 2/ Patient's left low abdominal pain is a slightly reduced, But the patient still had elevated WBC, elevated CRP. I called the surgeon, surgeon state he will assess patient daily by daily, hopefully pt does not need colectomy and colostomy. Continue antibiotics Zosyn, continue NPO with D5 IVF, continue pain control Because patient has worsening abdominal pain, patient still had elevated WBC and elevated CRP. Previous CAT scan of abdomen show diverticulitis with perforation and gas, We will consult with the surgeon and he will see the patient this after noon, and we will order CAT scan of the abdomen with pelvis, Continue intravenous antibiotics, Continue pain control. - Current Meds Current Meds: Current Medications Generic Name Dose Route Start Last Admin Trade Name Freq PRN Reason Stop Dose Admin Acetaminophen 650 mg 09/13/20 22:36 09/20/20 09:10 Acetaminophen 325 Mg Tablet PO 650 mg Q4HR PRN Administration Pain 1 to 4 Enoxaparin Sodium 40 mg 09/14/20 09:00 09/19/20 08:25 Enoxaparin 40 Mg/0.4 Ml Syringe SUBQ Not Given DAILY A[facility] Piperacillin Sod/Tazobactam 100 mls @ 25 mls/hr 09/17/20 17:00 09/20/20 09:08 Sod 3.375 gm/ Sodium Chloride IV 25 mls/hr Q8H [facility] Administration Dextrose/Sodium Chloride 1,000 mls @ 100 mls/hr 09/19/20 08:00 09/20/20 04:11 D5.45ns IV 100 mls/hr .Q10H [facility] Administration Ketorolac Tromethamine 15 mg 09/18/20 09:01 09/20/20 04:11 Ketorolac 15 Mg/Ml Vial IVP 09/23/20 09:00 15 mg Q6HR PRN Administration PAIN Ondansetron HCl 4 mg 09/13/20 22:36 09/14/20 12:30 Ondansetron 4 Mg/2 Ml Vial IVP 4 mg Q6HR PRN Administration Nausea / Vomiting Oxycodone HCl 5 mg 09/13/20 22:36 09/20/20 09:09 Oxycodone 5 Mg Tablet PO 5 mg Q4HR PRN Administration Pain 5 to 7 Pantoprazole Sodium 40 mg 09/14/20 07:00 09/20/20 07:31 Pantoprazole 40 Mg Tablet PO 40 mg QDAC [facility] Administration Sodium Chloride 10 ml 09/13/20 22:36 09/19/20 05:18 Sodium Chloride Flush 0.9% 10 Ml Syringe IVP 10 ml PRN PRN Administration NEEDED PER PROVIDER ORDERS Sodium Chloride 10 ml 09/14/20 01:00 09/20/20 01:39 Sodium Chloride Flush 0.9% 10 Ml Syringe IVP 10 ml 0100,0900,1700 [facility] Administration - Lab Result Fish Bone Diagrams: 09/20/20 04:35 09/20/20 04:35 - Additional Planning My Orders: My Active Orders 09/20/20 12:13 ABDOMEN/PELVIS W [CT] Routine 09/21/20 05:00 BMP - BASIC METABOLIC PANEL [CHEM] DAILYLAB CBC - COMP BLD CT W/AUTO DIFF [HEME] DAILYLAB CRP - C-REACTIVE PROTEIN [CHEM] DAILYLAB 09/22/20 05:00 BMP - BASIC METABOLIC PANEL [CHEM] DAILYLAB CBC - COMP BLD CT W/AUTO DIFF [HEME] DAILYLAB CRP - C-REACTIVE PROTEIN [CHEM] DAILYLAB 09/23/20 05:00 BMP - BASIC METABOLIC PANEL [CHEM] DAILYLAB CBC - COMP BLD CT W/AUTO DIFF [HEME] DAILYLAB CRP - C-REACTIVE PROTEIN [CHEM] DAILYLAB Subjective - Subjective Patient Reports: Abdominal Pain Objective Vital Signs: Vital Signs - 24 hr 09/19/20 09/19/20 09/20/20 15:18 20:22 01:00 Temperature 37.0 C 37.0 C 36.6 C Heart Rate [ 53 L 57 L 53 L Brachial] Respiratory 16 16 16 Rate Blood Pressure 158/81 H 151/74 H 136/78 H [Right Brachial artery] O2 Saturation 97 95 95 09/20/20 09/20/20 09/20/20 04:08 07:51 11:57 Temperature 36.8 C 37.0 C 36.9 C Heart Rate [ 55 L 54 L 55 L Brachial] Respiratory 16 17 16 Rate Blood Pressure 162/87 H 145/83 H 147/77 H [Right Brachial artery] O2 Saturation 95 96 95 Oxygen O2 Source Room air I&O (Last 24 Hrs): Intake and Output Totals x24h 09/18/20 09/19/20 09/20/20 23:59 23:59 23:59 Intake Total 2300.000 3166.663 1235 Output Total 1350 1300 Balance 235.466 5193.663 1235 General: Alert, Oriented x3, Cooperative, Mild distress HEENT: Atraumatic, PERRLA Neck: Supple Lymphatic: no adenopathy Neuro: Alert, Non Focal, Oriented Times 3 Cardiovascular: Regular rate, Normal S1, Normal S2 Respiratory: Chest non-tender, No respiratory distress, Breath sounds nml Abdomen: Normal bowel sounds, Soft, Other (pt present pain at palpitation on left lower quadrant) Extremities: Normal pulses - Results Results: Laboratory Results WBC 16.2 x10^3/uL (4.8-10.8) H 09/20/20 04:35 RBC 4.60 10^6/uL (4.70-6.10) L 09/20/20 04:35 Hgb 13.6 g/dL (14.0-18.0) L 09/20/20 04:35 Hct 40.8 % (42.0-52.0) L 09/20/20 04:35 MCV 88.7 fL (80.0-94.0) 09/20/20 04:35 MCH 29.6 pg (27.0-31.0) 09/20/20 04:35 MCHC 33.3 g/dL (32.0-36.0) 09/20/20 04:35 RDW 12.0 % (12.0-15.0) 09/20/20 04:35 Plt Count 286 10^3/uL (130-450) 09/20/20 04:35 MPV 10.6 fL (7.4-11.4) 09/20/20 04:35 Neut # (Auto) 13.1 10^3/uL (1.5-6.6) H 09/20/20 04:35 Lymph # (Auto) 1.9 10^3/uL (1.5-3.5) 09/20/20 04:35 [place] # (Auto) 0.9 10^3/uL (0.0-1.0) 09/20/20 04:35 Eos # (Auto) 0.1 10^3/uL (0.0-0.7) 09/20/20 04:35 Baso # (Auto) 0.1 10^3/uL (0.0-0.1) 09/20/20 04:35 Absolute Nucleated RBC 0.00 x10^3/uL 09/20/20 04:35 Total Counted 100 09/14/20 04:36 Band Neuts % (Manual) 0 % (0-10) 09/14/20 04:36 Abnorm Lymph % (Manual) 0 % 09/14/20 04:36 Nucleated RBC % 0.0 /100WBC 09/20/20 04:35 Neutrophils # (Manual) 18.2 10^3/uL (1.5-6.6) H 09/14/20 04:36 Lymphocytes # (Manual) 1.0 10^3/uL (1.5-3.5) L 09/14/20 04:36 Monocytes # (Manual) 1.0 10^3/uL (0.0-1.0) 09/14/20 04:36 Eosinophils # (Manual) 0.0 10^3/uL (0-0.7) 09/14/20 04:36 Basophils # (Manual) 0.0 10^3/uL (0-0.1) 09/14/20 04:36 Differential Comment MANUAL DIFFERENTIAL 09/14/20 04:36 WBC Morphology NORMAL APPEARANCE (NORMAL) 09/14/20 04:36 Platelet Estimate NORMAL (130-450,000) (NORMAL) 09/14/20 04:36 Platelet Morphology NORMAL APPEARANCE (NORMAL) 09/14/20 04:36 RBC Morph Micro Appear NORMAL APPEARANCE (NORMAL) 09/14/20 04:36 Sodium 139 mmol/L (135-145) 09/20/20 04:35 Potassium 3.8 mmol/L (3.5-5.0) 09/20/20 04:35 Chloride 105 mmol/L (101-111) 09/20/20 04:35 Carbon Dioxide 24 mmol/L (21-32) 09/20/20 04:35 Anion Gap 10.0 (6-13) 09/20/20 04:35 BUN 7 mg/dL (6-20) 09/20/20 04:35 Creatinine 1.0 mg/dL (0.6-1.2) 09/20/20 04:35 Estimated GFR (MDRD) 78 (>89) L 09/20/20 04:35 Glucose 117 mg/dL (70-100) H 09/20/20 04:35 Lactic Acid 0.9 mmol/L (0.5-2.2) 09/13/20 21:54 Calcium 8.9 mg/dL (8.5-10.3) 09/20/20 04:35 Magnesium 2.0 mg/dL (1.7-2.8) 09/17/20 05:15 Total Bilirubin 0.9 mg/dL (0.2-1.0) 09/13/20 21:44 AST 18 IU/L (10-42) 09/13/20 21:44 ALT 18 IU/L (10-60) 09/13/20 21:44 Alkaline Phosphatase 58 IU/L (42-121) 09/13/20 21:44 C-Reactive Protein 5.3 mg/dL (0-1.0) H 09/20/20 04:35 Total Protein 6.9 g/dL (6.7-8.2) 09/13/20 21:44 Albumin 3.8 g/dL (3.2-5.5) 09/13/20 21:44 Globulin 3.1 g/dL (2.1-4.2) 09/13/20 21:44 Albumin/Globulin Ratio 1.2 (1.0-2.2) 09/13/20 21:44 Lipase 25 U/L (22-51) 09/13/20 21:44 Nasal Adenovirus (PCR) NOT DETECTED 09/14/20 00:00 Nasal B. parapertussis DNA (PCR) NOT DETECTED 09/14/20 00:00 Nasal Coronavir 229E PCR NOT DETECTED 09/14/20 00:00 Nasal Coronavir HKU1 PCR NOT DETECTED 09/14/20 00:00 Nasal Coronavir NL63 PCR NOT DETECTED 09/14/20 00:00 Nasal Coronavir OC43 PCR NOT DETECTED 09/14/20 00:00 Nasal Enterovir/Rhinovir PCR NOT DETECTED 09/14/20 00:00 Nasal Influenza B PCR NOT DETECTED 09/14/20 00:00 Nasal Influenza A PCR NOT DETECTED 09/14/20 00:00 Nasal Parainfluen 1 PCR NOT DETECTED 09/14/20 00:00 Nasal Parainfluen 2 PCR NOT DETECTED 09/14/20 00:00 Nasal Parainfluen 3 PCR NOT DETECTED 09/14/20 00:00 Nasal Parainfluen 4 PCR NOT DETECTED 09/14/20 00:00 Nasal RSV (PCR) NOT DETECTED 09/14/20 00:00 Nasal Screen MRSA (PCR) NEGATIVE (NEGATIVE) 09/14/20 00:35 Nasal B.pertussis DNA PCR NOT DETECTED 09/14/20 00:00 Nasal C.pneumoniae (PCR) NOT DETECTED 09/14/20 00:00 Julio Human Metapneumo PCR NOT DETECTED 09/14/20 00:00 Nasal M.pneumoniae (PCR) NOT DETECTED 09/14/20 00:00 Nasal SARS-CoV-2 (PCR) NOT DETECTED 09/14/20 00:00 Stl C. diff Tox B Gene NEGATIVE (NEGATIVE) 09/15/20 11:04 - Procedures Procedures: Procedures COLONOSCOPY (05/29/13) ABX Reporting Has patient been on IV antibiotics over the past 48 hours?: Yes Current Medications - Current Medications Current Medications: Active Medications Acetaminophen (Acetaminophen 325 Mg Tablet) 650 mg PO Q4HR PRN PRN Reason: Pain 1 to 4 Last Admin: 09/20/20 09:10 Dose: 650 mg Documented by: Enoxaparin Sodium (Enoxaparin 40 Mg/0.4 Ml Syringe) 40 mg SUBQ DAILY [facility] Last Admin: 09/19/20 08:25 Dose: Not Given Documented by: Hydralazine HCl (Hydralazine Inj 20 Mg/Ml Vial) 10 mg IVP Q4H PRN PRN Reason: PRN if SBP>170 Piperacillin Sod/Tazobactam (Sod 3.375 gm/ Sodium Chloride) 100 mls @ 25 mls/hr IV Q8H [facility] Last Admin: 09/20/20 09:08 Dose: 25 mls/hr Documented by: Dextrose/Sodium Chloride (D5.45ns) 1,000 mls @ 100 mls/hr IV .Q10H [facility] Last Admin: 09/20/20 04:11 Dose: 100 mls/hr Documented by: Ketorolac Tromethamine (Ketorolac 15 Mg/Ml Vial) 15 mg IVP Q6HR PRN PRN Reason: PAIN Stop: 09/23/20 09:00 Last Admin: 09/20/20 04:11 Dose: 15 mg Documented by: Ondansetron HCl (Ondansetron 4 Mg/2 Ml Vial) 4 mg IVP Q6HR PRN PRN Reason: Nausea / Vomiting Last Admin: 09/14/20 12:30 Dose: 4 mg Documented by: Oxycodone HCl (Oxycodone 5 Mg Tablet) 5 mg PO Q4HR PRN PRN Reason: Pain 5 to 7 Last Admin: 09/20/20 09:09 Dose: 5 mg Documented by: Pantoprazole Sodium (Pantoprazole 40 Mg Tablet) 40 mg PO QDAC [facility] Last Admin: 09/20/20 07:31 Dose: 40 mg Documented by: Sodium Chloride (Sodium Chloride Flush 0.9% 10 Ml Syringe) 10 ml IVP PRN PRN PRN Reason: NEEDED PER PROVIDER ORDERS Last Admin: 09/19/20 05:18 Dose: 10 ml Documented by: Sodium Chloride (Sodium Chloride Flush 0.9% 10 Ml Syringe) 10 ml IVP 0100,0900,1700 [facility] Last Admin: 09/20/20 01:39 Dose: 10 ml Documented by: No Known Home Medications 09/15/20
[2020-09-20] MEDS ORDERED: IOVERSOL 320 100 ML VIAL IVP ONE ×2 (12:33→12:56)
--- NOTE | 2020-09-20 13:14 | CT Report ---
PROCEDURE: Abdomen/Pelvis W INDICATIONS: abdominal pain, if improved on perforation CONTRAST: IV CONTRAST: Optiray 320 ml: 100 PO CONTRAST: *NO PO CONTRAST TECHNIQUE: After the administration of IV contrast, 5 mm thick sections acquired from the diaphragms to the symp hysis. 5 mm thick coronal and sagittal reformats were acquired. For radiation dose reduction, the f ollowing was used: automated exposure control, adjustment of mA and/or kV according to patient size. COMPARISON: None. FINDINGS: Image quality: Excellent. ABDOMEN: Right basilar patchy consolidation is again noted and may be slightly increased. Solid organs: Liver and spleen are normal in size and enhancement. Gallbladder unremarkable Biliar y system is non dilated. Pancreas enhances normally. No adrenal nodules. Kidneys demonstrate claude l size and enhancement, without hydronephrosis. Peritoneum and bowel: Overall, grossly unchanged appearance of sigmoid diverticulitis, with adjacent extraluminal gas, inflammation and fluid/edema. No definite change in size since 09/17/2020. There may be slightly increased gas as the prior study. No discrete loculated rim-enhancing abscess is identif ied. Nodes and vessels: No retroperitoneal or mesenteric adenopathy by size criteria. Aorta and inferior vena cava are normal in size. Miscellaneous: No ventral hernias. PELVIS: Genitourinary: Bladder wall thickness is normal. Miscellaneous: No inguinal hernias or adenopathy. Bones: No suspicious bony lesions. No vertebral body compression fractures. IMPRESSION: Redemonstration of acute sigmoid diverticulitis and adjacent fluid and gas, associated inflammation/p hlegmon. No discrete abscess seen at this time. The overall size is unchanged although there may be s light interval increase in gas since prior study. Right basilar aspiration and/or pneumonia, slightly increased since the prior study. Reviewed by: Raúl Rahman MD on 09/20/2020 1:12 PM PST Approved by: Raúl Rahman MD on 09/20/2020 1:12 PM PST Station ID: [id number]
[2020-09-20] MEDS: ENOXAPARIN 40 MG/0.4 ML SYRINGE SUBQ SCH (13:54)
--- NOTE | 2020-09-20 14:10 | PROVIDER PROGRESS NOTE ---
Subjective - Prog Note Date Prog Note Date: 09/20/20 - Subjective Pt reports feeling: No change (minimal pain. no nausea) Objective - Vital Signs/Intake & Output Reviewed Vital Signs: Yes Vital Signs: Vital Signs x48h Temp Pulse Resp BP Pulse Ox 09/20/20 11:57 36.9 C 55 L 16 147/77 H 95 09/20/20 07:51 37.0 C 54 L 17 145/83 H 96 Intake & Output: Intake & Output 09/17/20 09/18/20 09/19/20 09/20/20 23:59 23:59 23:59 23:59 Intake Total 3080 2300.000 3166.663 1815 Output Total 1350 1300 Balance 3080 444.104 1287.663 1815 - Objective General Appearance: positive: No acute distress, Alert Respiratory: positive: No respiratory distress Abdomen: positive: No distention, Other (minimal tenderness) - Lab Results Fish Bones: 09/20/20 04:35 09/20/20 04:35 Other Labs: Lab Results x24hrs 09/20/20 09/20/20 Range/Units 04:35 04:35 WBC 16.2 H (4.8-10.8) x10^3/uL RBC 4.60 L (4.70-6.10) 10^6/uL Hgb 13.6 L (14.0-18.0) g/dL Hct 40.8 L (42.0-52.0) % MCV 88.7 (80.0-94.0) fL MCH 29.6 (27.0-31.0) pg MCHC 33.3 (32.0-36.0) g/dL RDW 12.0 (12.0-15.0) % Plt Count 286 (130-450) 10^3/uL MPV 10.6 (7.4-11.4) fL Neut # (Auto) 13.1 H (1.5-6.6) 10^3/uL Lymph # (Auto) 1.9 (1.5-3.5) 10^3/uL [place] # (Auto) 0.9 (0.0-1.0) 10^3/uL Eos # (Auto) 0.1 (0.0-0.7) 10^3/uL Baso # (Auto) 0.1 (0.0-0.1) 10^3/uL Absolute Nucleated RBC 0.00 x10^3/uL Nucleated RBC % 0.0 /100WBC Sodium 139 (135-145) mmol/L Potassium 3.8 (3.5-5.0) mmol/L Chloride 105 (101-111) mmol/L Carbon Dioxide 24 (21-32) mmol/L Anion Gap 10.0 (6-13) BUN 7 (6-20) mg/dL Creatinine 1.0 (0.6-1.2) mg/dL Estimated GFR (MDRD) 78 L (>89) Glucose 117 H (70-100) mg/dL Calcium 8.9 (8.5-10.3) mg/dL C-Reactive Protein 5.3 H (0-1.0) mg/dL Assessment/Plan - Problem List (1) Diverticulitis of colon with perforation Impression: Wbc up today. Contained rupture low sigmoid colon. No abscess to drain at this time. Discussed with patient. Not improving and no abscess to drain at this time. He was seen with Dr Pal. We discussed he likely will not improve significantly and he likely will need surgery with colectomy and stoma/ colostomy or diverting ileostomy with resection. The patient is agreeable with this. If not significantly improved over the next couple days plan surgery early next week. diet fulls with nutrition drinks as tolerated Qualifiers: Diverticulitis bleeding: without bleeding Qualified Code(s): K57.20 - Diverticulitis of large intestine with perforation and abscess without bleeding
[2020-09-21] MEDS: DEXTROSE 5%-0.45% NACL 1,000 ML IV SCH ×3 (01:07→23:51)
[2020-09-21] MEDS: PIPERACILLIN/TAZOBACTAM 3.375 GM in SODIUM CHLORIDE 0.9% MINIBAG 100 ML IV SCH ×3 (01:07→16:55)
[2020-09-21] MEDS: SODIUM CHLORIDE FLUSH 0.9% 10 ML SYRINGE IVP SCH ×3 (01:08→16:55)
[2020-09-21] MEDS: KETOROLAC 15 MG/ML VIAL IVP PRN ×4 (03:12→20:55)
[2020-09-21 05:12] LABS: BASOPHILS # (AUTO) 0.1 10^3/uL (0.0-0.1); BASOPHILS % (AUTO) 0.6 %; EOSINOPHILS # (AUTO) 0.2 10^3/uL (0.0-0.7); EOSINOPHILS % (AUTO) 1.1 %; HCT - HEMATOCRIT 39.9 % (42.0-52.0); HGB - HEMOGLOBIN 13.4 g/dL (14.0-18.0); LYMPHOCYTES # (AUTO) 1.8 10^3/uL (1.5-3.5); LYMPHOCYTES % (AUTO) 12.6 %; MEAN CORPUSCULAR HEMOGLOBIN 29.7 pg (27.0-31.0); MEAN CORPUSCULAR HGB CONC 33.6 g/dL (32.0-36.0); MEAN CORPUSCULAR VOLUME 88.5 fL (80.0-94.0); MEAN PLATELET VOLUME 10.5 fL (7.4-11.4); MONOCYTES # (AUTO) 1.2 10^3/uL (0.0-1.0); MONOCYTES % (AUTO) 8.6 %; NEUTROPHILS # (AUTO) 10.8 10^3/uL (1.5-6.6); NEUTROPHILS % (AUTO) 76.3 %; PLT - PLATELET COUNT 307 10^3/uL (130-450); RED BLOOD COUNT 4.51 10^6/uL (4.70-6.10); WHITE BLOOD COUNT 14.1 x10^3/uL (4.8-10.8)
[2020-09-21 05:31] LABS: CALCIUM 8.8 mg/dL (8.5-10.3); CREATININE 0.9 mg/dL (0.6-1.2); CRP - C-REACTIVE PROTEIN 6.5 mg/dL (0-1.0); POTASSIUM 3.8 mmol/L (3.5-5.0)
[2020-09-21] MEDS: PANTOPRAZOLE 40 MG TABLET PO SCH (06:54)
--- NOTE | 2020-09-21 07:30 | PROVIDER PROGRESS NOTE ---
Subjective - Prog Note Date Prog Note Date: 09/21/20 Prog Note Time: 07:31 - Subjective Subjective: he has been nauseated. No emesis. able to walk to bathroom. pain is controlled. He is just not happy about how slow this is occurring. He really wants all this to be over with. He dreads the idea of having to have surgery. Current Medications - Current Medications Current Medications: Active Medications Acetaminophen (Acetaminophen 325 Mg Tablet) 650 mg PO Q4HR PRN PRN Reason: Pain 1 to 4 Last Admin: 09/20/20 15:07 Dose: 650 mg Documented by: Enoxaparin Sodium (Enoxaparin 40 Mg/0.4 Ml Syringe) 40 mg SUBQ DAILY [facility] Last Admin: 09/20/20 13:54 Dose: Not Given Documented by: Hydralazine HCl (Hydralazine Inj 20 Mg/Ml Vial) 10 mg IVP Q4H PRN PRN Reason: PRN if SBP>170 Piperacillin Sod/Tazobactam (Sod 3.375 gm/ Sodium Chloride) 100 mls @ 25 mls/hr IV Q8H [facility] Last Infusion: 09/21/20 05:07 Dose: Infused Documented by: Dextrose/Sodium Chloride (D5.45ns) 1,000 mls @ 100 mls/hr IV .Q10H [facility] Last Admin: 09/21/20 01:07 Dose: 100 mls/hr Documented by: Ketorolac Tromethamine (Ketorolac 15 Mg/Ml Vial) 15 mg IVP Q6HR PRN PRN Reason: PAIN Stop: 09/23/20 09:00 Last Admin: 09/21/20 03:12 Dose: 15 mg Documented by: Ondansetron HCl (Ondansetron 4 Mg/2 Ml Vial) 4 mg IVP Q6HR PRN PRN Reason: Nausea / Vomiting Last Admin: 09/14/20 12:30 Dose: 4 mg Documented by: Oxycodone HCl (Oxycodone 5 Mg Tablet) 5 mg PO Q4HR PRN PRN Reason: Pain 5 to 7 Last Admin: 09/20/20 15:07 Dose: 5 mg Documented by: Pantoprazole Sodium (Pantoprazole 40 Mg Tablet) 40 mg PO QDAC [facility] Last Admin: 09/21/20 06:54 Dose: 40 mg Documented by: Sodium Chloride (Sodium Chloride Flush 0.9% 10 Ml Syringe) 10 ml IVP PRN PRN PRN Reason: NEEDED PER PROVIDER ORDERS Last Admin: 09/19/20 05:18 Dose: 10 ml Documented by: Sodium Chloride (Sodium Chloride Flush 0.9% 10 Ml Syringe) 10 ml IVP 0100,0900,1700 [facility] Last Admin: 09/21/20 03:13 Dose: 10 ml Documented by: No Known Home Medications 09/15/20 Objective - Vital Signs/Intake & Output Reviewed Vital Signs: Yes Vital Signs: Vital Signs x48h Temp Pulse Resp BP Pulse Ox 09/21/20 00:08 36.5 C 51 L 16 129/77 97 Intake & Output: Intake & Output 09/18/20 09/19/20 09/20/20 09/21/20 23:59 23:59 23:59 23:59 Intake Total 2300.000 3166.663 3155 1100 Output Total 1350 1300 600 Balance 957.221 8978.663 3155 500 - Objective General Appearance: positive: No acute distress, Alert, Other (5 foot 10 white male, 86.5 kg who looks stated age) Eyes Bilateral: positive: PERRL ENT: positive: No signs of dehydration Neck: positive: No JVD. negative: Stiff neck Respiratory: positive: No respiratory distress. negative: Wheezes, Rales, Rhonchi Cardiovascular: positive: Regular rate & rhythm. negative: Gallop/S4, Friction rub Abdomen: positive: No organomegaly, Nml bowel sounds, No distention, Tenderness (Mild, left lower quadrant. A 4 out of a 10.). negative: Guarding, Rebound Skin: positive: Warm, Dry Extremities: positive: Non-tender, No pedal edema Neurologic/Psychiatric: positive: Oriented x3, CN's nml (2-12), Motor nml - Lab Results Fish Bones: 09/21/20 05:00 09/21/20 05:00 Other Labs: Lab Results x24hrs 09/21/20 09/21/20 Range/Units 05:00 05:00 WBC 14.1 H (4.8-10.8) x10^3/uL RBC 4.51 L (4.70-6.10) 10^6/uL Hgb 13.4 L (14.0-18.0) g/dL Hct 39.9 L (42.0-52.0) % MCV 88.5 (80.0-94.0) fL MCH 29.7 (27.0-31.0) pg MCHC 33.6 (32.0-36.0) g/dL RDW 12.0 (12.0-15.0) % Plt Count 307 (130-450) 10^3/uL MPV 10.5 (7.4-11.4) fL Neut # (Auto) 10.8 H (1.5-6.6) 10^3/uL Lymph # (Auto) 1.8 (1.5-3.5) 10^3/uL [place] # (Auto) 1.2 H (0.0-1.0) 10^3/uL Eos # (Auto) 0.2 (0.0-0.7) 10^3/uL Baso # (Auto) 0.1 (0.0-0.1) 10^3/uL Absolute Nucleated RBC 0.00 x10^3/uL Nucleated RBC % 0.0 /100WBC Sodium 138 (135-145) mmol/L Potassium 3.8 (3.5-5.0) mmol/L Chloride 106 (101-111) mmol/L Carbon Dioxide 23 (21-32) mmol/L Anion Gap 9.0 (6-13) BUN 7 (6-20) mg/dL Creatinine 0.9 (0.6-1.2) mg/dL Estimated GFR (MDRD) 88 L (>89) Glucose 123 H (70-100) mg/dL Calcium 8.8 (8.5-10.3) mg/dL C-Reactive Protein 6.5 H (0-1.0) mg/dL ABX Reporting Has patient been on IV antibiotics over the past 48 hours?: Yes Assessment/Plan - Problem List (1) Diverticulitis of colon with perforation Impression: He presented as diverticulitis treatment that is failed outpatient therapy. The CT scan showed perforation and gas. He was admitted and put on antibiotics on September 13. He is now day 8 of antibiotics. General surgery has been cons ulted. Overall he has had 3 abdomen pelvis CTs with the last one done yesterday. He has right basilar patchy consolidation in the lung. Solid organs are normal. Overall grossly unchanged appearance of the sigmoid diverticulitis with adjacent extraluminal gas, inflammation, and fluid edema. No discrete loculated rim-enhancing abscess identified. He has been seen by both Dr. Pal and Dr. Collins. Most likely he will need surgery with a colectomy and stoma/colostomy or diverting ileostomy with resection. If he does not improve over today or tomorrow surgery is planned for early next week. Overnight he has been afebrile. Normal vital signs. Normal oxygenation. C- reactive protein has come down to 6.5 from 10.8. White cell count continues to be elevated around the same range its been for the last week to 14.1 but he was admitted at 20K. He does have a left shift. Qualifiers: Diverticulitis bleeding: without bleeding Qualified Code(s): K57.20 - Diverticulitis of large intestine with perforation and abscess without bleeding
[2020-09-21] MEDS: ENOXAPARIN 40 MG/0.4 ML SYRINGE SUBQ SCH (08:56)
--- NOTE | 2020-09-21 12:12 | PROVIDER PROGRESS NOTE ---
Subjective - Prog Note Date Prog Note Date: 09/21/20 - Subjective Pt reports feeling: Improved (taking fulls and nutrition drinks well. passing gas and small bms. less pain/ minimal tenderness) Objective - Vital Signs/Intake & Output Vital Signs: Vital Signs x48h Temp Pulse Resp BP Pulse Ox 09/21/20 08:32 37.1 C 62 18 145/82 H 97 Intake & Output: Intake & Output 09/18/20 09/19/20 09/20/20 09/21/20 23:59 23:59 23:59 23:59 Intake Total 2300.000 3166.663 3155 2060 Output Total 1350 1300 900 Balance 243.173 3941.663 3155 1160 - Objective General Appearance: positive: No acute distress, Alert Abdomen: positive: No distention, Other (minimal tenderness to deep palpation) - Lab Results Fish Bones: 09/21/20 05:00 09/21/20 05:00 Other Labs: Lab Results x24hrs 09/21/20 09/21/20 Range/Units 05:00 05:00 WBC 14.1 H (4.8-10.8) x10^3/uL RBC 4.51 L (4.70-6.10) 10^6/uL Hgb 13.4 L (14.0-18.0) g/dL Hct 39.9 L (42.0-52.0) % MCV 88.5 (80.0-94.0) fL MCH 29.7 (27.0-31.0) pg MCHC 33.6 (32.0-36.0) g/dL RDW 12.0 (12.0-15.0) % Plt Count 307 (130-450) 10^3/uL MPV 10.5 (7.4-11.4) fL Neut # (Auto) 10.8 H (1.5-6.6) 10^3/uL Lymph # (Auto) 1.8 (1.5-3.5) 10^3/uL [place] # (Auto) 1.2 H (0.0-1.0) 10^3/uL Eos # (Auto) 0.2 (0.0-0.7) 10^3/uL Baso # (Auto) 0.1 (0.0-0.1) 10^3/uL Absolute Nucleated RBC 0.00 x10^3/uL Nucleated RBC % 0.0 /100WBC Sodium 138 (135-145) mmol/L Potassium 3.8 (3.5-5.0) mmol/L Chloride 106 (101-111) mmol/L Carbon Dioxide 23 (21-32) mmol/L Anion Gap 9.0 (6-13) BUN 7 (6-20) mg/dL Creatinine 0.9 (0.6-1.2) mg/dL Estimated GFR (MDRD) 88 L (>89) Glucose 123 H (70-100) mg/dL Calcium 8.8 (8.5-10.3) mg/dL C-Reactive Protein 6.5 H (0-1.0) mg/dL Assessment/Plan - Problem List (1) Diverticulitis of colon with perforation Impression: wbc down today. less pain. tolerating fulls well. If not significantly improved plan surgery wednesday. Qualifiers: Diverticulitis bleeding: without bleeding Qualified Code(s): K57.20 - Diverticulitis of large intestine with perforation and abscess without bleeding
[2020-09-21] MEDS: ACETAMINOPHEN 325 MG TABLET PO PRN (20:14)
[2020-09-21] MEDS: SODIUM CHLORIDE FLUSH 0.9% 10 ML SYRINGE IVP PRN (20:58)
[2020-09-22] MEDS: PIPERACILLIN/TAZOBACTAM 3.375 GM in SODIUM CHLORIDE 0.9% MINIBAG 100 ML IV SCH ×3 (00:42→16:46)
[2020-09-22] MEDS: SODIUM CHLORIDE FLUSH 0.9% 10 ML SYRINGE IVP SCH ×3 (01:35→16:46)
[2020-09-22] MEDS: KETOROLAC 15 MG/ML VIAL IVP PRN ×3 (04:51→19:53)
[2020-09-22] MEDS: SODIUM CHLORIDE FLUSH 0.9% 10 ML SYRINGE IVP PRN ×2 (04:51→19:53)
[2020-09-22 05:54] LABS: BASOPHILS # (AUTO) 0.1 10^3/uL (0.0-0.1); BASOPHILS % (AUTO) 0.4 %; EOSINOPHILS # (AUTO) 0.1 10^3/uL (0.0-0.7); EOSINOPHILS % (AUTO) 0.8 %; HCT - HEMATOCRIT 40.7 % (42.0-52.0); HGB - HEMOGLOBIN 13.6 g/dL (14.0-18.0); LYMPHOCYTES # (AUTO) 2.1 10^3/uL (1.5-3.5); LYMPHOCYTES % (AUTO) 14.4 %; MEAN CORPUSCULAR HEMOGLOBIN 29.6 pg (27.0-31.0); MEAN CORPUSCULAR HGB CONC 33.4 g/dL (32.0-36.0); MEAN CORPUSCULAR VOLUME 88.7 fL (80.0-94.0); MEAN PLATELET VOLUME 10.7 fL (7.4-11.4); MONOCYTES # (AUTO) 1.2 10^3/uL (0.0-1.0); MONOCYTES % (AUTO) 8.5 %; NEUTROPHILS # (AUTO) 10.9 10^3/uL (1.5-6.6); NEUTROPHILS % (AUTO) 75.1 %; PLT - PLATELET COUNT 308 10^3/uL (130-450); RED BLOOD COUNT 4.59 10^6/uL (4.70-6.10); WHITE BLOOD COUNT 14.5 x10^3/uL (4.8-10.8)
[2020-09-22 06:12] LABS: CALCIUM 8.9 mg/dL (8.5-10.3); CREATININE 1.1 mg/dL (0.6-1.2); POTASSIUM 3.5 mmol/L (3.5-5.0)
[2020-09-22] MEDS: PANTOPRAZOLE 40 MG TABLET PO SCH (07:20)
[2020-09-22] MEDS: ENOXAPARIN 40 MG/0.4 ML SYRINGE SUBQ SCH (09:33)
[2020-09-22] MEDS: DEXTROSE 5%-0.45% NACL 1,000 ML IV SCH ×2 (10:45→20:53)
--- NOTE | 2020-09-22 11:33 | PROVIDER PROGRESS NOTE ---
Subjective - Prog Note Date Prog Note Date: 09/22/20 - Subjective Pt reports feeling: Improved (less pain however not resolved) Objective - Vital Signs/Intake & Output Reviewed Vital Signs: Yes Vital Signs: Vital Signs x48h Temp Pulse Resp BP Pulse Ox 09/22/20 07:32 36.8 C 56 L 18 149/79 H 96 Intake & Output: Intake & Output 09/19/20 09/20/20 09/21/20 09/22/20 23:59 23:59 23:59 23:59 Intake Total 3166.663 3155 4843.333 2300 Output Total 1300 900 Balance 4596.483 5082 3943.333 2300 - Objective General Appearance: positive: No acute distress, Alert Eyes Bilateral: positive: Normal inspection Respiratory: positive: No respiratory distress Abdomen: positive: No distention, Other (minimal tenderness) - Lab Results Fish Bones: 09/22/20 05:20 09/22/20 05:20 Other Labs: Lab Results x24hrs 09/22/20 09/22/20 Range/Units 05:20 05:20 WBC 14.5 H (4.8-10.8) x10^3/uL RBC 4.59 L (4.70-6.10) 10^6/uL Hgb 13.6 L (14.0-18.0) g/dL Hct 40.7 L (42.0-52.0) % MCV 88.7 (80.0-94.0) fL MCH 29.6 (27.0-31.0) pg MCHC 33.4 (32.0-36.0) g/dL RDW 12.0 (12.0-15.0) % Plt Count 308 (130-450) 10^3/uL MPV 10.7 (7.4-11.4) fL Neut # (Auto) 10.9 H (1.5-6.6) 10^3/uL Lymph # (Auto) 2.1 (1.5-3.5) 10^3/uL [place] # (Auto) 1.2 H (0.0-1.0) 10^3/uL Eos # (Auto) 0.1 (0.0-0.7) 10^3/uL Baso # (Auto) 0.1 (0.0-0.1) 10^3/uL Absolute Nucleated RBC 0.00 x10^3/uL Nucleated RBC % 0.0 /100WBC Sodium 138 (135-145) mmol/L Potassium 3.5 (3.5-5.0) mmol/L Chloride 104 (101-111) mmol/L Carbon Dioxide 25 (21-32) mmol/L Anion Gap 9.0 (6-13) BUN 8 (6-20) mg/dL Creatinine 1.1 (0.6-1.2) mg/dL Estimated GFR (MDRD) 70 L (>89) Glucose 111 H (70-100) mg/dL Calcium 8.9 (8.5-10.3) mg/dL C-Reactive Protein 6.0 H (0-1.0) mg/dL Assessment/Plan - Problem List (1) Diverticulitis of colon with perforation Impression: Plan surgery wednesday. colectomy with possible anastomosis and diverting ileostomy Qualifiers: Diverticulitis bleeding: without bleeding Qualified Code(s): K57.20 - Di verticulitis of large intestine with perforation and abscess without bleeding
--- NOTE | 2020-09-22 15:29 | PROVIDER PROGRESS NOTE ---
Subjective - Prog Note Date Prog Note Date: 09/22/20 Prog Note Time: 15:27 - Subjective Pt reports feeling: Improved Subjective: From yesterday today he has had a diminishment in pain. Toradol is controlling him well. He only gets the pain if he eats and then has the urge to defecate. The very tender peritoneal pain from admission has been gone for several days. He denies chest pain, palpitations. Nausea is better. Current Medications - Current Medications Current Medications: Active Medications Generic Name Dose Route Start Last Admin Trade Name Freq PRN Reason Stop Dose Admin Acetaminophen 650 mg 09/13/20 22:36 09/21/20 20:14 Acetaminophen 325 Mg Tablet PO 650 mg Q4HR PRN Administration Pain 1 to 4 Enoxaparin Sodium 40 mg 09/14/20 09:00 09/22/20 09:33 Enoxaparin 40 Mg/0.4 Ml Syringe SUBQ Not Given DAILY ASHWIN Hydralazine HCl 10 mg 09/17/20 11:31 Hydralazine Inj 20 Mg/Ml Vial IVP Q4H PRN PRN if SBP>170 Piperacillin Sod/Tazobactam 100 mls @ 25 mls/hr 09/17/20 17:00 09/22/20 13:33 Sod 3.375 gm/ Sodium Chloride IV Infused Q8H ASHWIN Infusion Dextrose/Sodium Chloride 1,000 mls @ 100 mls/hr 09/19/20 08:00 09/22/20 10:45 D5.45ns IV 100 mls/hr .Q10H ASHWIN Administration Ketorolac Tromethamine 15 mg 09/18/20 09:01 09/22/20 12:26 Ketorolac 15 Mg/Ml Vial IVP 09/23/20 09:00 15 mg Q6HR PRN Administration PAIN Ondansetron HCl 4 mg 09/13/20 22:36 09/14/20 12:30 Ondansetron 4 Mg/2 Ml Vial IVP 4 mg Q6HR PRN Administration Nausea / Vomiting Oxycodone HCl 5 mg 09/13/20 22:36 09/20/20 15:07 Oxycodone 5 Mg Tablet PO 5 mg Q4HR PRN Administration Pain 5 to 7 Pantoprazole Sodium 40 mg 09/14/20 07:00 09/22/20 07:20 Pantoprazole 40 Mg Tablet PO 40 mg QDAC ASHWIN Administration Sodium Chloride 10 ml 09/13/20 22:36 09/22/20 04:51 Sodium Chloride Flush 0.9% 10 Ml Syringe IVP 10 ml PRN PRN Administration NEEDED PER PROVIDER ORDERS Sodium Chloride 10 ml 09/14/20 01:00 09/22/20 11:02 Sodium Chloride Flush 0.9% 10 Ml Syringe IVP Not Given 0100,0900,1700 ASHWIN No Known Home Medications 09/15/20 Objective - Vital Signs/Intake & Output Reviewed Vital Signs: Yes Vital Signs: Vital Signs x48h Temp Pulse Resp BP Pulse Ox 09/22/20 07:32 36.8 C 56 L 18 149/79 H 96 Intake & Output: Intake & Output 09/19/20 09/20/20 09/21/20 09/22/20 23:59 23:59 23:59 23:59 Intake Total 3166.663 3155 4843.333 3452 Output Total 1300 900 Balance 0737.225 8200 3943.333 3452 - Objective General Appearance: positive: No acute distress, Alert Eyes Bilateral: positive: PERRL, EOMI ENT: positive: No signs of dehydration Neck: positive: No JVD. negative: Stiff neck Respiratory: positive: No respiratory distress. negative: Wheezes, Rales, Rhonchi Cardiovascular: positive: Regular rate & rhythm. negative: Gallop/S4, Friction rub Abdomen: positive: Nml bowel sounds, Tenderness (Mild over left lower quadrant. No rebound or guarding.) Skin: positive: Warm, Dry Extremities: positive: Full ROM, No pedal edema Neurologic/Psychiatric: positive: Oriented x3, CN's nml (2-12), Motor nml - Lab Results Fish Bones: 09/22/20 05:20 09/22/20 05:20 Other Labs: Lab Results x24hrs 09/22/20 09/22/20 Range/Units 05:20 05:20 WBC 14.5 H (4.8-10.8) x10^3/uL RBC 4.59 L (4.70-6.10) 10^6/uL Hgb 13.6 L (14.0-18.0) g/dL Hct 40.7 L (42.0-52.0) % MCV 88.7 (80.0-94.0) fL MCH 29.6 (27.0-31.0) pg MCHC 33.4 (32.0-36.0) g/dL RDW 12.0 (12.0-15.0) % Plt Count 308 (130-450) 10^3/uL MPV 10.7 (7.4-11.4) fL Neut # (Auto) 10.9 H (1.5-6.6) 10^3/uL Lymph # (Auto) 2.1 (1.5-3.5) 10^3/uL [place] # (Auto) 1.2 H (0.0-1.0) 10^3/uL Eos # (Auto) 0.1 (0.0-0.7) 10^3/uL Baso # (Auto) 0.1 (0.0-0.1) 10^3/uL Absolute Nucleated RBC 0.00 x10^3/uL Nucleated RBC % 0.0 /100WBC Sodium 138 (135-145) mmol/L Potassium 3.5 (3.5-5.0) mmol/L Chloride 104 (101-111) mmol/L Carbon Dioxide 25 (21-32) mmol/L Anion Gap 9.0 (6-13) BUN 8 (6-20) mg/dL Creatinine 1.1 (0.6-1.2) mg/dL Estimated GFR (MDRD) 70 L (>89) Glucose 111 H (70-100) mg/dL Calcium 8.9 (8.5-10.3) mg/dL C-Reactive Protein 6.0 H (0-1.0) mg/dL ABX Reporting Has patient been on IV antibiotics over the past 48 hours?: Yes Assessment/Plan - Problem List (1) Diverticulitis of colon with perforation Impression: He presented as diverticulitis treatment that is failed outpatient therapy. The CT scan showed perforation and gas. He was admitted and put on antibiotics on September 13. He had been tried on Cipro and Flagyl p.o. on September 12. Then changed to IV on September 13. He was then switched to Zosyn. He is now day 9 of antibiotics. General surgery has been consulted. Overall he has had 3 abdomen pelvis CTs with the last one done yesterday. He has right basilar patchy consolidation in the lung. Solid organs are normal. Overall grossly unchanged appearance of the sigmoid diverticulitis with adjacent extraluminal gas, inflamm ation, and fluid edema. However, from the first CT in the outpatient setting when he first presented to the second CT about 24 hours later there was a definite progression of diverticulitis. No discrete loculated rim-enhancing abscess identified. He has been seen by both Dr. Pal and Dr. Collins. Most likely he will need surgery with a colectomy and stoma/colostomy or diverting ileostomy with resection. If he does not improve surgery is planned for early next week. He continues to be afebrile. Walking the hallways to make sure he stays strong. No fever, normal blood pressure. C-reactive protein has come down to 6.0 from 10.8. White cell count continues to be elevated around the same range its been for the last week to 14 but he was admitted at 20K. He does have a left shift. Plan: CT scan tomorrow. Then Dr. Pal and Karina will make a decision about surgery. At this time pain and nausea are controlled. Qualifiers: Diverticulitis bleeding: without bleeding Qualified Code(s): K57.20 - Diverticulitis of large intestine with perforation and abscess without bleeding
[2020-09-23] MEDS: PIPERACILLIN/TAZOBACTAM 3.375 GM in SODIUM CHLORIDE 0.9% MINIBAG 100 ML IV SCH ×3 (00:19→16:21)
[2020-09-23] MEDS: SODIUM CHLORIDE FLUSH 0.9% 10 ML SYRINGE IVP SCH ×3 (00:28→16:22)
[2020-09-23] MEDS: KETOROLAC 15 MG/ML VIAL IVP PRN (02:43)
[2020-09-23 05:19] LABS: BASOPHILS # (AUTO) 0.1 10^3/uL (0.0-0.1); BASOPHILS % (AUTO) 0.5 %; EOSINOPHILS # (AUTO) 0.2 10^3/uL (0.0-0.7); EOSINOPHILS % (AUTO) 1.1 %; HCT - HEMATOCRIT 40.5 % (42.0-52.0); HGB - HEMOGLOBIN 13.4 g/dL (14.0-18.0); LYMPHOCYTES # (AUTO) 1.9 10^3/uL (1.5-3.5); LYMPHOCYTES % (AUTO) 14.4 %; MEAN CORPUSCULAR HEMOGLOBIN 29.5 pg (27.0-31.0); MEAN CORPUSCULAR HGB CONC 33.1 g/dL (32.0-36.0); MEAN CORPUSCULAR VOLUME 89.2 fL (80.0-94.0); MEAN PLATELET VOLUME 10.3 fL (7.4-11.4); MONOCYTES # (AUTO) 1.1 10^3/uL (0.0-1.0); MONOCYTES % (AUTO) 8.3 %; NEUTROPHILS % (AUTO) 74.9 %; PLT - PLATELET COUNT 323 10^3/uL (130-450); RED BLOOD COUNT 4.54 10^6/uL (4.70-6.10); RED CELL DISTRIBUTION WIDTH 11.9 % (12.0-15.0); WHITE BLOOD COUNT 13.4 x10^3/uL (4.8-10.8)
[2020-09-23 05:37] LABS: CALCIUM 8.9 mg/dL (8.5-10.3); CREATININE 1.1 mg/dL (0.6-1.2); CRP - C-REACTIVE PROTEIN 5.9 mg/dL (0-1.0)
[2020-09-23] MEDS: PANTOPRAZOLE 40 MG TABLET PO SCH (05:57)
[2020-09-23] MEDS: DEXTROSE 5%-0.45% NACL 1,000 ML IV SCH ×2 (05:57→21:54)
--- NOTE | 2020-09-23 10:00 | PROVIDER PROGRESS NOTE ---
Progress Note Subjective No significant change with regard to the patient's constellation of symptoms. Scheduled for PPN. Objective General Appearance: positive: No acute distress Eyes Bilateral: positive: Normal inspection ENT: positive: ENT inspection nml Neck: positive: Nml inspection Respiratory: positive: Chest non-tender, No respiratory distress, Breath sounds nml. negative: Wheezes, Rales, Rhonchi Cardiovascular: positive: Regular rate & rhythm Abdomen: positive: No distention, Other. negative: Guarding, Rebound; Persistent suprapubic and left lower quadrant pain Extremities: positive: Non-tender, Full ROM, Nml appearance Neurologic/Psychiatric: positive: Oriented x3, CN's nml (2-12) Impression/Plan 55-year-old male recurrent diverticulitis complicated by contained perforation failure to improve with nonoperative management. Hospital day #11. Please see discussion from September 19 and September 20. Consensus to proceed with operative resection either low anterior resection with primary anastomosis and proximal diversion versus Jamison's procedure. Patient was reiterated of the necessity of stoma formation in the setting of his disease process. Patient was advised of risks as a relates to colectomy including but not limited to, anastomotic leak, injury to local structures including the ureter and nerves, potential for proximal diversion including loop ileostomy, possible conversion to open intervention, need for additional surgeries, as well as the development of postoperative surgical site hernias and infection. Moreover, there were the anesthesia and operative risks of heart attack, stroke, . These conversations also included discussion of possible sexual dysfunction as it relates to retrograde ejaculation amongst others in the setting of anterior resection. (1) GI - IVF, bowel Prep, PPN to transition to TPN tomorrow. GI ppx. (2) SURGERY - Diagnostic laparoscopy with possible resection with proximal loop ileostomy versus Jamison's procedure, possible open, drain placement, Tripp catheter, other indicated procedures. (3) Renal/Lytes - continue IVF. Renal indices within normal limits. (4) Respiratory - O2 as necessary. Continue IS. (5) Heme - Will continue with DVT ppx. H/H stable. (6) Cardiovascular - HD acceptable. (7) Neuro - Opiate sparring analgesia. Antispasmodics with Robaxin. [Toradol]. Neuropathic agents. (8) Immune/Infectious Disease - Erythromycin and Flagyl as part of bowel prep; continue Zosyn. Please note that voice recognition software was used to transcribe this note and inadvertent errors might persist in spite of review and editing. I am obliged to you for your attention. I am thankful to you for allowing me to participate with you in this care of this patient.
[2020-09-23] MEDS: ENOXAPARIN 40 MG/0.4 ML SYRINGE SUBQ SCH (10:02)
[2020-09-23] MEDS: ACETAMINOPHEN 325 MG TABLET PO PRN ×2 (11:14→19:49)
--- NOTE | 2020-09-23 13:21 | PROVIDER PROGRESS NOTE ---
Subjective - Prog Note Date Prog Note Date: 09/23/20 Prog Note Time: 13:18 - Subjective Pt reports feeling: Improved Subjective: walking in hallway, pain less off of toradol. no nausea. no diarrhea. no fever. Current Medications - Current Medications Current Medications: Active Medications Acetaminophen (Acetaminophen 325 Mg Tablet) 650 mg PO Q4HR PRN PRN Reason: Pain 1 to 4 Last Admin: 09/23/20 11:14 Dose: 650 mg Documented by: Enoxaparin Sodium (Enoxaparin 40 Mg/0.4 Ml Syringe) 40 mg SUBQ DAILY [facility] Last Admin: 09/23/20 10:02 Dose: Not Given Documented by: Hydralazine HCl (Hydralazine Inj 20 Mg/Ml Vial) 10 mg IVP Q4H PRN PRN Reason: PRN if SBP>170 Piperacillin Sod/Tazobactam (Sod 3.375 gm/ Sodium Chloride) 100 mls @ 25 mls/hr IV Q8H [facility] Last Admin: 09/23/20 11:14 Dose: 25 mls/hr Documented by: Dextrose/Sodium Chloride (D5.45ns) 1,000 mls @ 100 mls/hr IV .Q10H [facility] Last Infusion: 09/23/20 13:14 Dose: 100 mls/hr Documented by: Ondansetron HCl (Ondansetron 4 Mg/2 Ml Vial) 4 mg IVP Q6HR PRN PRN Reason: Nausea / Vomiting Last Admin: 09/14/20 12:30 Dose: 4 mg Documented by: Oxycodone HCl (Oxycodone 5 Mg Tablet) 5 mg PO Q4HR PRN PRN Reason: Pain 5 to 7 Last Admin: 09/20/20 15:07 Dose: 5 mg Documented by: Pantoprazole Sodium (Pantoprazole 40 Mg Tablet) 40 mg PO QDAC [facility] Last Admin: 09/23/20 05:57 Dose: 40 mg Documented by: Sodium Chloride (Sodium Chloride Flush 0.9% 10 Ml Syringe) 10 ml IVP PRN PRN PRN Reason: NEEDED PER PROVIDER ORDERS Last Admin: 09/22/20 19:53 Dose: 10 ml Documented by: Sodium Chloride (Sodium Chloride Flush 0.9% 10 Ml Syringe) 10 ml IVP 0100,090 0,1700 [facility] Last Admin: 09/23/20 11:17 Dose: 10 ml Documented by: No Known Home Medications 09/15/20 Objective - Vital Signs/Intake & Output Reviewed Vital Signs: Yes Vital Signs: Vital Signs x48h Temp Pulse Resp BP Pulse Ox 09/23/20 09:50 36.8 C 61 16 159/83 H 97 Intake & Output: Intake & Output 09/20/20 09/21/20 09/22/20 09/23/20 23:59 23:59 23:59 23:59 Intake Total 3155 4843.333 5560.333 2466.666 Output Total 900 Balance 3155 3943.333 5560.333 2466.666 - Objective General Appearance: positive: Alert Eyes Bilateral: positive: PERRL ENT: positive: No signs of dehydration Neck: positive: No JVD Respiratory: positive: No respiratory distress. negative: Wheezes, Rales, Rhonchi Cardiovascular: positive: Regular rate & rhythm. negative: Gallop/S4 Abdomen: positive: Nml bowel sounds, No distention, Tenderness (mild of llq) Extremities: positive: Full ROM, No pedal edema Neurologic/Psychiatric: positive: Oriented x3, CN's nml (2-12), Motor nml - Lab Results Fish Bones: 09/23/20 05:09 09/23/20 05:09 Other Labs: Lab Results x24hrs 09/23/20 09/23/20 Range/Units 05:09 05:09 WBC 13.4 H (4.8-10.8) x10^3/uL RBC 4.54 L (4.70-6.10) 10^6/uL Hgb 13.4 L (14.0-18.0) g/dL Hct 40.5 L (42.0-52.0) % MCV 89.2 (80.0-94.0) fL MCH 29.5 (27.0-31.0) pg MCHC 33.1 (32.0-36.0) g/dL RDW 11.9 L (12.0-15.0) % Plt Count 323 (130-450) 10^3/uL MPV 10.3 (7.4-11.4) fL Neut # (Auto) 10.0 H (1.5-6.6) 10^3/uL Lymph # (Auto) 1.9 (1.5-3.5) 10^3/uL [place] # (Auto) 1.1 H (0.0-1.0) 10^3/uL Eos # (Auto) 0.2 (0.0-0.7) 10^3/uL Baso # (Auto) 0.1 (0.0-0.1) 10^3/uL Absolute Nucleated RBC 0.00 x10^3/uL Nucleated RBC % 0.0 /100WBC Sodium 137 (135-145) mmol/L Potassium 4.0 (3.5-5.0) mmol/L Chloride 104 (101-111) mmol/L Carbon Dioxide 25 (21-32) mmol/L Anion Gap 8.0 (6-13) BUN 8 (6-20) mg/dL Creatinine 1.1 (0.6-1.2) mg/dL Estimated GFR (MDRD) 70 L (>89) Glucose 118 H (70-100) mg/dL Calcium 8.9 (8.5-10.3) mg/dL C-Reactive Protein 5.9 H (0-1.0) mg/dL ABX Reporting Has patient been on IV antibiotics over the past 48 hours?: Yes Assessment/Plan - Problem List (1) Diverticulitis of colon with perforation Impression: He presented as diverticulitis treatment that is failed outpatient therapy. He had not been able to keep his meds down due to N/V after [address] did not show gas or perf and just simple hinchey 1. The second CT scan showed perforation and gas. He was admitted and put on antibiotics on September 13. He had been tried on Cipro and Flagyl p.o. on September 12 and couldn't keep them down. Then changed to IV on September 13. He was then switched to Zosyn. He is now day 10 of antibiotics. General surgery has been consulted. Overall he has had 3 abdomen pelvis CTs with the last one done 09/20. He has right basilar patchy consolidation in the lung. Solid organs are normal. Overall grossly unchanged appearance of the sigmoid diverticulitis with adjacent extraluminal gas, inflammation, and fluid edema. However, from the first CT in the outpatient setting when he first presented to the second CT about 24 hours later there was a definite progression of diverticulitis. No discrete loculated rim-enhancing abscess identified. He has been seen by both Dr. Pal and Dr. Collins. Most likely he will need surgery with a colectomy and stoma/colostomy or diverting ileostomy with resection. If he does not improve surgery is planned for early next week. He continues to be afebrile. Walking the hallways to make sure he stays strong. No fever, normal blood pressure. C-reactive protein has come down to 5.9 from 10.8. White cell count is 13.4 but he was admitted at 20K. He does have a left shift. Plan: CT scan is not today but tomorrow. Then Dr. Pal and Karina will make a decision about surgery. At this time pain and nausea are controlled. Qualifiers: Diverticulitis bleeding: without bleeding Qualified Code(s): K57.20 - Diverticulitis of large intestine with perforation and abscess without bleeding
[2020-09-23] MEDS: MULTIVITAMIN W/MINERALS TABLET PO SCH (16:37)
[2020-09-23] MEDS: PPN IV SCH ×2 (19:08)
[2020-09-23] MEDS: TRACE ELEMENTS IV SCH ×2 (19:08)
[2020-09-23] MEDS: FAT EMULSION 20% 250 ML IV SCH (19:08)
[2020-09-23] MEDS: metroNIDAZOLE 250 MG TABLET PO SCH (19:49)
[2020-09-23] MEDS: SODIUM/POTASSIUM/MAG SULFATES 354 ML PREP KIT PO SCH (20:21)
[2020-09-24] MEDS: PIPERACILLIN/TAZOBACTAM 3.375 GM in SODIUM CHLORIDE 0.9% MINIBAG 100 ML IV SCH ×3 (00:50→20:52)
[2020-09-24] MEDS: SODIUM CHLORIDE FLUSH 0.9% 10 ML SYRINGE IVP SCH ×3 (00:51→20:38)
[2020-09-24] MEDS: ACETAMINOPHEN 325 MG TABLET PO PRN (02:28)
[2020-09-24] MEDS: oxyCODONE 5 MG TABLET PO PRN (02:28)
[2020-09-24] MEDS: metroNIDAZOLE 250 MG TABLET PO SCH ×2 (02:32→06:27)
[2020-09-24] MEDS ORDERED: SODIUM/POTASSIUM/MAG SULFATES 354 ML PREP KIT PO SCH (05:00)
[2020-09-24] MEDS: SODIUM/POTASSIUM/MAG SULFATES 354 ML PREP KIT PO SCH (05:07)
[2020-09-24 05:33] LABS: ALBUMIN 3.3 g/dL (3.2-5.5); ALBUMIN/GLOBULIN RATIO 0.9 (1.0-2.2); BILIRUBIN,TOTAL 0.5 mg/dL (0.2-1.0); CALCIUM 8.9 mg/dL (8.5-10.3); MAGNESIUM 2.2 mg/dL (1.7-2.8); PHOSPHORUS 3.8 mg/dL (2.5-4.6); POTASSIUM 4.1 mmol/L (3.5-5.0)
[2020-09-24] MEDS: PANTOPRAZOLE 40 MG TABLET PO SCH (06:53)
[2020-09-24] MEDS: MULTIVITAMIN W/MINERALS TABLET PO SCH (08:36)
[2020-09-24] MEDS: ENOXAPARIN 40 MG/0.4 ML SYRINGE SUBQ SCH (08:36)
--- NOTE | 2020-09-24 09:07 | ANESTHESIA ---
Pre-Anesthesia VS, & Labs - Diagnosis diverticulitis - Procedure laparoscopic assisted colectomy, possible colostomy Vital Signs: Temp Pulse Resp BP Pulse Ox 36.9 C 63 16 137/78 H 96 09/24/20 07:45 09/24/20 07:45 09/24/20 07:45 09/24/20 07:45 09/24/20 07:45 Height: 5 ft 10 in Weight (kg): 86 kg Body Mass Index: 27.1 BMI Classification: Overweight - NPO >8 hours - Lab Results Current Lab Results: Laboratory Tests 09/24/20 04:47: Sodium 137, Potassium 4.1, Chloride 102, Carbon Dioxide 24, Anion Gap 11.0, BUN 9, Creatinine 1.0, Estimated GFR (MDRD) 78 L, Glucose 133 H, Calcium 8.9, Phosphorus 3.8, Magnesium 2.2, Total Bilirubin 0.5, AST 19, ALT 26, Alkaline Phosphatase 54, Total Protein 7.0, Albumin 3.3, Globulin 3.7, Albumin/Globulin Ratio 0.9 L, Prealbumin 14 L, Triglycerides 115 09/23/20 05:09: Sodium 137, Potassium 4.0, Chloride 104, Carbon Dioxide 25, Anion Gap 8.0, BUN 8, Creatinine 1.1, Estimated GFR (MDRD) 70 L, Glucose 118 H, Calcium 8.9, C-Reactive Protein 5.9 H 09/23/20 05:09: WBC 13.4 H, RBC 4.54 L, Hgb 13.4 L, Hct 40.5 L, MCV 89.2, MCH 29.5, MCHC 33.1, RDW 11.9 L, Plt Count 323, MPV 10.3, Neut # (Auto) 10.0 H, Lymph # (Auto) 1.9, Quay # (Auto) 1.1 H, Eos # (Auto) 0.2, Baso # (Auto) 0.1, Absolute Nucleated RBC 0.00, Nucleated RBC % 0.0 09/22/20 05:20: Sodium 138, Potassium 3.5, Chloride 104, Carbon Dioxide 25, Anion Gap 9.0, BUN 8, Creatinine 1.1, Estimated GFR (MDRD) 70 L, Glucose 111 H, Calcium 8.9, C-Reactive Protein 6.0 H 09/22/20 05:20: WBC 14.5 H, RBC 4.59 L, Hgb 13.6 L, Hct 40.7 L, MCV 88.7, MCH 29.6, MCHC 33.4, RDW 12.0, Plt Count 308, MPV 10.7, Neut # (Auto) 10.9 H, Lymph # (Auto) 2.1, Quay # (Auto) 1.2 H, Eos # (Auto) 0.1, Baso # (Auto) 0.1, Absolute Nucleated RBC 0.00, Nucleated RBC % 0.0 09/21/20 05:00: Sodium 138, Potassium 3.8, Chloride 106, Carbon Dioxide 23, Anion Gap 9.0, BUN 7, Creatinine 0.9, Estimated GFR (MDRD) 88 L, Glucose 123 H, Calcium 8.8, C-Reactive Protein 6.5 H 09/21/20 05:00: WBC 14.1 H, RBC 4.51 L, Hgb 13.4 L, Hct 39.9 L, MCV 88.5, MCH 29.7, MCHC 33.6, RDW 12.0, Plt Count 307, MPV 10.5, Neut # (Auto) 10.8 H, Lymph # (Auto) 1.8, Quay # (Auto) 1.2 H, Eos # (Auto) 0.2, Baso # (Auto) 0.1, Absolute Nucleated RBC 0.00, Nucleated RBC % 0.0 09/20/20 04:35: Sodium 139, Potassium 3.8, Chloride 105, Carbon Dioxide 24, Anion Gap 10.0, BUN 7, Creatinine 1.0, Estimated GFR (MDRD) 78 L, Glucose 117 H, Calcium 8.9, C-Reactive Protein 5.3 H 09/20/20 04:35: WBC 16.2 H, RBC 4.60 L, Hgb 13.6 L, Hct 40.8 L, MCV 88.7, MCH 29.6, MCHC 33.3, RDW 12.0, Plt Count 286, MPV 10.6, Neut # (Auto) 13.1 H, Lymph # (Auto) 1.9, Quay # (Auto) 0.9, Eos # (Auto) 0.1, Baso # (Auto) 0.1, Absolute Nucleated RBC 0.00, Nucleated RBC % 0.0 09/19/20 04:46: Sodium 140, Potassium 4.6, Chloride 105, Carbon Dioxide 25, Anion Gap 10.0, BUN 8, Creatinine 1.1, Estimated GFR (MDRD) 70 L, Glucose 129 H, Calcium 8.9, C-Reactive Protein 7.5 H 09/19/20 04:46: WBC 14.7 H, RBC 4.95, Hgb 14.5, Hct 44.5, MCV 89.9, MCH 29.3, MCHC 32.6, RDW 12.1, Plt Count 276, MPV 10.8, Neut # (Auto) 11.6 H, Lymph # (Auto) 2.1, Quay # (Auto) 0.7, Eos # (Auto) 0.2, Baso # (Auto) 0.1, Absolute Nucleated RBC 0.00, Nucleated RBC % 0.0 09/18/20 04:43: Sodium 140, Potassium 3.6, Chloride 107, Carbon Dioxide 25, Anion Gap 8.0, BUN 9, Creatinine 1.0, Estimated GFR (MDRD) 78 L, Glucose 114 H, Calcium 8.6, C-Reactive Protein 8.8 H 09/18/20 04:43: WBC 13.6 H, RBC 4.46 L, Hgb 13.3 L, Hct 39.7 L, MCV 89.0, MCH 29.8, MCHC 33.5, RDW 12.1, Plt Count 225, MPV 10.8, Neut # (Auto) 10.8 H, Lymph # (Auto) 1.7, Quay # (Auto) 0.8, Eos # (Auto) 0.2, Baso # (Auto) 0.1, Absolute Nucleated RBC 0.00, Nucleated RBC % 0.0 09/17/20 05:15: C-Reactive Protein 10.8 H 09/17/20 05:15: Sodium 140, Potassium 3.5, Chloride 106, Carbon Dioxide 24, Anion Gap 10.0, BUN 10, Creatinine 0.8, Estimated GFR (MDRD) 101, Glucose 120 H, Calcium 8.3 L, Magnesium 2.0 09/17/20 05:15: WBC 13.2 H, RBC 4.37 L, Hgb 13.1 L, Hct 39.3 L, MCV 89.9, MCH 30.0, MCHC 33.3, RDW 12.2, Plt Count 183, MPV 10.8, Neut # (Auto) 10.6 H, Lymph # (Auto) 1.5, Quay # (Auto) 0.9, Eos # (Auto) 0.2, Baso # (Auto) 0.0, Absolute Nucleated RBC 0.00, Nucleated RBC % 0.0 09/16/20 05:02: Sodium 135, Potassium 3.7, Chloride 102, Carbon Dioxide 25, Anion Gap 8.0, BUN 13, Creatinine 0.9, Estimated GFR (MDRD) 88 L, Glucose 115 H, Calcium 8.2 L 09/16/20 05:02: WBC 14.5 H, RBC 4.42 L, Hgb 13.1 L, Hct 39.7 L, MCV 89.8, MCH 29.6, MCHC 33.0, RDW 12.0, Plt Count 153, MPV 10.8, Neut # (Auto) 12.0 H, Lymph # (Auto) 1.3 L, Quay # (Auto) 1.0, Eos # (Auto) 0.1, Baso # (Auto) 0.0, Absolute Nucleated RBC 0.00, Nucleated RBC % 0.0 09/15/20 04:55: Sodium 135, Potassium 3.9, Chloride 101, Carbon Dioxide 24, Anion Gap 10.0, BUN 13, Creatinine 1.0, Estimated GFR (MDRD) 78 L, Glucose 117 H , Calcium 8.5 09/15/20 04:55: WBC 16.8 H, RBC 4.61 L, Hgb 13.5 L, Hct 41.3 L, MCV 89.6, MCH 29.3, MCHC 32.7, RDW 12.3, Plt Count 148, MPV 10.6, Neut # (Auto) 13.9 H, Lymph # (Auto) 1.7, Quay # (Auto) 1.1 H, Eos # (Auto) 0.0, Baso # (Auto) 0.1, Absolute Nucleated RBC 0.00, Nucleated RBC % 0.0 09/14/20 04:36: Sodium 133 L, Potassium 3.9, Chloride 100 L, Carbon Dioxide 23, Anion Gap 10.0, BUN 19, Creatinine 1.0, Estimated GFR (MDRD) 78 L, Glucose 126 H , Calcium 8.5 09/14/20 04:36: WBC 20.2 H, RBC 4.86, Hgb 14.4, Hct 43.5, MCV 89.5, MCH 29.6, MCHC 33.1, RDW 12.2, Plt Count 157, MPV 10.9, Neut # (Auto) Not Reportable, Lymph # (Auto) Not Reportable, Quay # (Auto) Not Reportable, Eos # (Auto) Not Reportable, Baso # (Auto) Not Reportable, Absolute Nucleated RBC Not Reportable, Total Counted 100, Band Neuts % (Manual) 0, Abnorm Lymph % (Manual) 0, Nucleated RBC % Not Reportable, Neutrophils # (Manual) 18.2 H, Lymphocytes # (Manual) 1.0 L, Monocytes # (Manual) 1.0, Eosinophils # (Manual) 0.0, Basophils # (Manual) 0.0, Differential Comment MANUAL DIFFERENTIAL, WBC Morphology NORMAL APPEARANCE, Platelet Estimate NORMAL (130-450,000), Platelet Morphology NORMAL APPEARANCE, RBC Morph Micro Appear NORMAL APPEARANCE 09/13/20 21:54: Lactic Acid 0.9 09/13/20 21:44: Sodium 135, Potassium 3.8, Chloride 100 L, Carbon Dioxide 23, Anion Gap 12.0, BUN 24 H, Creatinine 1.1, Estimated GFR (MDRD) 70 L, Glucose 132 H, Calcium 9.0, Total Bilirubin 0.9, AST 18, ALT 18, Alkaline Phosphatase 58, Total Protein 6.9, Albumin 3.8, Globulin 3.1, Albumin/Globulin Ratio 1.2, Lipase 25 09/13/20 21:33: WBC 17.7 H, RBC 5.32, Hgb 15.8, Hct 46.2, MCV 86.8, MCH 29.7, MCHC 34.2, RDW 12.1, Plt Count 180, MPV 10.3, Neut # (Auto) 15.9 H, Lymph # (Auto) 0.7 L, Quay # (Auto) 1.0, Eos # (Auto) 0.0, Baso # (Auto) 0.1, Absolute Nucleated RBC 0.00, Nucleated RBC % 0.0 Lab results reviewed: Yes Fish Bones: 09/23/20 05:09 09/24/20 04:47 Home Medications and Allergies Home Medications: Ambulatory Orders No Known Home Medications 09/15/20 Active Medications Acetaminophen (Acetaminophen 325 Mg Tablet) 650 mg PO Q4HR PRN PRN Reason: Pain 1 to 4 Last Admin: 09/24/20 02:28 Dose: 650 mg Documented by: Enoxaparin Sodium (Enoxaparin 40 Mg/0.4 Ml Syringe) 40 mg SUBQ DAILY [facility] Last Admin: 09/24/20 08:36 Dose: Not Given Documented by: Hydralazine HCl (Hydralazine Inj 20 Mg/Ml Vial) 10 mg IVP Q4H PRN PRN Reason: PRN if SBP>170 Piperacillin Sod/Tazobactam (Sod 3.375 gm/ Sodium Chloride) 100 mls @ 25 mls/hr IV Q8H [facility] Last Admin: 09/24/20 08:37 Dose: 25 mls/hr Documented by: TRACE ELEMENTS 1 ml/ Amino (Acids/Electrolytes/Dextrose) 2,001 mls @ 83 mls/hr IV TPN/PPN [facility] Last Admin: 09/23/20 19:08 Dose: 83 mls/hr Documented by: Fat Emulsion Intravenous (Intralipid 20%) 250 mls @ 21 mls/hr IV TPN/PPN [facility] Last Infusion: 09/24/20 07:05 Dose: Infused Documented by: Dextrose/Sodium Chloride (D5.45ns) 1,000 mls @ 50 mls/hr IV .Q20H [facility] Last Admin: 09/23/20 21:54 Dose: 50 mls/hr Documented by: Metronidazole (Metronidazole 250 Mg Tablet) 500 mg PO Q8H [facility] Stop: 09/24/20 11:01 Last Admin: 09/24/20 06:27 Dose: 500 mg Documented by: Multivitamins/Minerals (Multivitamin W/Minerals Tablet) 1 tab PO DAILYWM [facility] Last Admin: 09/24/20 08:36 Dose: 1 tab Documented by: Ondansetron HCl (Ondansetron 4 Mg/2 Ml Vial) 4 mg IVP Q6HR PRN PRN Reason: Nausea / Vomiting Last Admin: 09/14/20 12:30 Dose: 4 mg Documented by: Oxycodone HCl (Oxycodone 5 Mg Tablet) 5 mg PO Q4HR PRN PRN Reason: Pain 5 to 7 Last Admin: 09/24/20 02:28 Dose: 5 mg Documented by: Pantoprazole Sodium (Pantoprazole 40 Mg Tablet) 40 mg PO QDAC [facility] Last Admin: 09/24/20 06:53 Dose: Not Given Documented by: Sodium Chloride (Sodium Chloride Flush 0.9% 10 Ml Syringe) 10 ml IVP PRN PRN PRN Reason: NEEDED PER PROVIDER ORDERS Last Admin: 09/22/20 19:53 Dose: 10 ml Documented by: Sodium Chloride (Sodium Chloride Flush 0.9% 10 Ml Syringe) 10 ml IVP 0100,0900,1700 [facility] Last Admin: 09/24/20 08:37 Dose: 10 ml Documented by: No Known Home Medications 09/15/20 Allergies/Adverse Reactions: Allergies Allergy/AdvReac Type Severity Reaction Status Date / Time No Known Drug Allergies Allergy Verified 09/13/20 20:48 Anes History & Medical History - Anesthetic History Anesthesia Complications: reports: No previous complications - Medical History Cardiovascular: reports: None Pulmonary: reports: None Gastrointestinal: reports: Diverticulitis Urinary: reports: None Neuro: reports: None Musculoskeletal: reports: None Endocrine/Autoimmune: reports: None Blood Disorders: reports: None Skin: reports: None Smoking Status: Current every day smoker History of Cancer?: No - Surgical History Eyes Ears Nose Throat (EENT): Tonsil/Adenoidectomy Orthopedic: Arthroscopic surgery Exam General: Alert, Oriented x3, Cooperative Dental: WNL Mouth Opening: Greater than 4 Fingerbreadths Neck Mobility: Normal Mallampati classification: I Thyromental Distance: greater than 6 cm Respiratory: Lungs clear Cardiovascular: Regular rate Mental/Cognitive Status: Alert/Oriented X3 Plan Anesthesia Type: General, Transverse Abdominis Plane (TAP) Block Regional Block: Per Surgeon's request for Post Op pain control Consent for Procedure(s) Verified and Reviewed: Yes Code Status: Attempt Resuscitation ASA classification: 2-Mild systemic disease Is this case an emergency?: No
--- NOTE | 2020-09-24 09:21 | PROVIDER PROGRESS NOTE ---
Subjective - Prog Note Date Prog Note Date: 09/24/20 Prog Note Time: 09:19 - Subjective Pt reports feeling: No change (Per pt, Dr Pal spoke w/ him last xenia that he and Dr Gerber discussed plan to proceed w/ surgery today. REsection w/ anastamosis and ostomy per patient. Anxious but he is glad here is definitive plan. He d/w Dr Cabral as well last night. Mild LLQ pain, otherwise no c/o) Current Medications - Current Medications Current Medications: Active Medications Acetaminophen (Acetaminophen 325 Mg Tablet) 650 mg PO Q4HR PRN PRN Reason: Pain 1 to 4 Last Admin: 09/24/20 02:28 Dose: 650 mg Documented by: Enoxaparin Sodium (Enoxaparin 40 Mg/0.4 Ml Syringe) 40 mg SUBQ DAILY [facility] Last Admin: 09/24/20 08:36 Dose: Not Given Documented by: Hydralazine HCl (Hydralazine Inj 20 Mg/Ml Vial) 10 mg IVP Q4H PRN PRN Reason: PRN if SBP>170 Piperacillin Sod/Tazobactam (Sod 3.375 gm/ Sodium Chloride) 100 mls @ 25 mls/hr IV Q8H [facility] Last Admin: 09/24/20 08:37 Dose: 25 mls/hr Documented by: TRACE ELEMENTS 1 ml/ Amino (Acids/Electrolytes/Dextrose) 2,001 mls @ 83 mls/hr IV TPN/PPN [facility] Last Admin: 09/23/20 19:08 Dose: 83 mls/hr Documented by: Fat Emulsion Intravenous (Intralipid 20%) 250 mls @ 21 mls/hr IV TPN/PPN [facility] Last Infusion: 09/24/20 07:05 Dose: Infused Documented by: Dextrose/Sodium Chloride (D5.45ns) 1,000 mls @ 50 mls/hr IV .Q20H [facility] Last Admin: 09/23/20 21:54 Dose: 50 mls/hr Documented by: Metronidazole (Metronidazole 250 Mg Tablet) 500 mg PO Q8H [facility] Stop: 09/24/20 11:01 Last Admin: 09/24/20 06:27 Dose: 500 mg Documented by: Multivitamins/Minerals (Multivitamin W/Minerals Tablet) 1 tab PO DAILYWM [facility] Last Admin: 09/24/20 08:36 Dose: 1 tab Documented by: Ondansetron HCl (Ondansetron 4 Mg/2 Ml Vial) 4 mg IVP Q6HR PRN PRN Reason: Nausea / Vomiting Last Admin: 09/14/20 12:30 Dose: 4 mg Documented by: Oxycodone HCl (Oxycodone 5 Mg Tablet) 5 mg PO Q4HR PRN PRN Reason: Pain 5 to 7 Last Admin: 09/24/20 02:28 Dose: 5 mg Documented by: Pantoprazole Sodium (Pantoprazole 40 Mg Tablet) 40 mg PO QDAC [facility] Last Admin: 09/24/20 06:53 Dose: Not Given Documented by: Sodium Chloride (Sodium Chloride Flush 0.9% 10 Ml Syringe) 10 ml IVP PRN PRN PRN Reason: NEEDED PER PROVIDER ORDERS Last Admin: 09/22/20 19:53 Dose: 10 ml Documented by: Sodium Chloride (Sodium Chloride Flush 0.9% 10 Ml Syringe) 10 ml IVP 0100,0900,1700 [facility] Last Admin: 09/24/20 08:37 Dose: 10 ml Documented by: No Known Home Medications 09/15/20 Objective - Vital Signs/Intake & Output Reviewed Vital Signs: Yes Vital Signs: Vital Signs x48h Temp Pulse Resp BP Pulse Ox 09/24/20 07:45 36.9 C 63 16 137/78 H 96 Intake & Output: Intake & Output 09/21/20 09/22/20 09/23/20 09/24/20 23:59 23:59 23:59 23:59 Intake Total 4843.333 5560.333 3598.333 350 Output Total 900 300 Balance 3943.333 5560.333 3298.333 350 - Objective General Appearance: positive: No acute distress, Other (lying in bed, awake, alert, NAD) Eyes Bilateral: positive: Normal inspection, PERRL (eyes track evenly) Cardiovascular: positive: Regular rate & rhythm (HR ~ 50), No murmur Peripheral Pulses: 0 Posterior tibialis (L) Abdomen: positive: Nml bowel sounds, No distention. negative: Non-tender (mild LLQ tenderness to palpation,) Skin: positive: Warm, Dry Extremities: positive: No pedal edema Neurologic/Psychiatric: positive: Oriented x3, Mood/affect nml ( admits slight anxiety as above, not overtly anxious) - Lab Results Fish Bones: 09/23/20 05:09 09/24/20 04:47 Other Labs: Lab Results x24hrs 09/24/20 Range/Units 04:47 Sodium 137 (135-145) mmol/L Potassium 4.1 (3.5-5.0) mmol/L Chloride 102 (101-111) mmol/L Carbon Dioxide 24 (21-32) mmol/L Anion Gap 11.0 (6-13) BUN 9 (6-20) mg/dL Creatinine 1.0 (0.6-1.2) mg/dL Estimated GFR (MDRD) 78 L (>89) Glucose 133 H (70-100) mg/dL Calcium 8.9 (8.5-10.3) mg/dL Phosphorus 3.8 (2.5-4.6) mg/dL Magnesium 2.2 (1.7-2.8) mg/dL Total Bilirubin 0.5 (0.2-1.0) mg/dL AST 19 (10-42) IU/L ALT 26 (10-60) IU/L Alkaline Phosphatase 54 (42-121) IU/L Total Protein 7.0 (6.7-8.2) g/dL Albumin 3.3 (3.2-5.5) g/dL Globulin 3.7 (2.1-4.2) g/dL Albumin/Globulin Ratio 0.9 L (1.0-2.2) Prealbumin 14 L (18-45) mg/dL Triglycerides 115 ( - 149) mg/dL Assessment/Plan - Problem List (1) Diverticulitis of colon with perforation Impression: Surgery planned ~12:45 today Paula Pal and Buzz (Dr Pal later noted a later start of surgery) On IV ABx since 09/13, Day 10 today (pip/tazo); Leukocytosis persists (initial reduction from 20K >>13K) continues hemodynamically stable. (baseline sinus kendell)CRP 10.8> 5.9 By NSQIP surgical risk calculator with minimal prior medical problems other than daily tobacco, cardiac risk score for serious complication 9.1 % overall (below average, 0.1 % for cardiac complication, , 0.6% risk of pneumonia; All risks well below average, ileus being most likley However, Dr. Pal noted that high risk peritoneal soiling given size of phlegmon Plan to send from PACU to ICU post op Abdomen CT w/ suggestive R basilar patchy consolidation (reported as clear 09/17 CT); no clinical findings on respiratory exam, RA Sa02 96% 2) Protein calorie malnutrition related to irregular intake (fulls, clear, since admit w/ daily eval as to progress) PPN started 09/23 Surgery planning TPN post op for nutritional healing requirements, Nutrition/caterer helper following
[2020-09-24] MEDS ORDERED: MIDAZOLAM 2 MG/2 ML VIAL ONE (13:47)
[2020-09-24] MEDS ORDERED: fentaNYL 100 MCG/2 ML VIAL ONE (13:47)
[2020-09-24] MEDS ORDERED: ONDANSETRON 4 MG/2 ML VIAL ONE (13:47)
[2020-09-24] MEDS ORDERED: PROPOFOL 200 MG/20 ML VIAL IVP ONE (13:47)
[2020-09-24] MEDS ORDERED: DEXAMETHASONE 4 MG/ML VIAL ONE ×2 (13:48→17:55)
[2020-09-24] MEDS ORDERED: LIDOCAINE-MPF 2% 5 ML VIAL ONE (13:48)
[2020-09-24] MEDS ORDERED: ROCURONIUM 50 MG/5 ML VIAL ONE ×2 (13:48→15:27)
[2020-09-24] MEDS ORDERED: HYDROmorphone 1 MG/ML CARPUJECT ONE (15:32)
[2020-09-24] MEDS ORDERED: SEVOFLURANE 250 ML LIQUID INH ONE (17:02)
[2020-09-24] MEDS ORDERED: ATROPINE ABBOJECT 1 MG/10 ML SYRINGE IVP PRN (17:54)
[2020-09-24] MEDS ORDERED: HYDROmorphone 0.5 MG/0.5 ML SYRINGE IVP PRN (17:54)
[2020-09-24] MEDS ORDERED: fentaNYL 100 MCG/2 ML VIAL IVP PRN (17:54)
[2020-09-24] MEDS ORDERED: MORPHINE 2 MG/ML CARPUJECT IVP PRN (17:54)
[2020-09-24] MEDS ORDERED: ONDANSETRON 4 MG/2 ML VIAL IVP PRN ×2 (17:54→18:53)
[2020-09-24] MEDS ORDERED: ePHEDrine 50 MG/ML VIAL IVP PRN (17:54)
[2020-09-24] MEDS ORDERED: NALOXONE 0.4 MG/ML VIAL IVP PRN (17:54)
[2020-09-24] MEDS ORDERED: ROPIVACAINE 0.5% PF 20 ML AMPULE ONE (17:55)
[2020-09-24] MEDS ORDERED: LACTATED RINGERS 1,000 ML IV ONE ×2 (18:50)
[2020-09-24] MEDS ORDERED: IPRATROPIUM 0.2 MG/ML NEB INH PRN (18:53)
[2020-09-24] MEDS ORDERED: SODIUM CHLORIDE FLUSH 0.9% 10 ML SYRINGE IVP PRN (18:53)
[2020-09-24] MEDS ORDERED: oxyCODONE 5 MG TABLET PO PRN (18:53)
[2020-09-24] MEDS ORDERED: ACETAMINOPHEN 1,000 MG/100 ML 100 ML IV ONE (18:53)
[2020-09-24] MEDS ORDERED: ALBUTEROL NEB 2.5 MG/3 ML INH PRN (18:53)
--- NOTE | 2020-09-24 19:09 | OPERATIVE REPORT ---
Operative Report - General Admit Date: 09/13/20 Procedure Date: 09/24/20 Planned Procedure: 1. Attempted diagnostic laparoscopy versus exploratory laparotomy 2. Possible Jamison's procedure versus resection, primary anastomosis with proximal diversion 3. Pelvic drainage with abdominal washout 4. Other indicated procedures Pre-Op Diagnosis: Localized peritonitis; complicated diverticulitis; failure of medical mgmt Procedure Performed: 1. Diagnostic laparoscopy 2. Laparoscopic adhesiolysis, dense and lengthy 3. Laparoscopic anterior resection (7cm anastomosis) 4. Laparoscopic splenic flexure mobilization 5. Rigid proctoscopy 6. Laparoscopic loop ileostomy 7. Tap block per anesthesia 8. Drainage of pelvic abscess 9. Abdominal washout 10. Sampling of pelvic abscess 11. 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 Drain placement 14. Primary umbilical hernia repair Post Op Diagnosis: Same; pelvic phlegmon with surrounding small bowel concerning for fistula - Procedure Note Primary Surgeon: Kae Secondary Surgeon: Karina Anesthesia Provider: Sharron Anesthesia Technique: General ET tube, Local Pathology: 1. Abscess/Phlegmon cavity for culture and sensitivity 2. Rectum, rectosigmoid, inferior mesenteric jeff plane 3. Anastomotic donuts Estimated Blood Loss (mL): 200 Urine Output (mL): 300 Drain/Tube Type: Slick drain Indications: See EMR and chart notes. Findings: 1. Large pelvic rectosigmoid contained perforation encapsulated by mesorectum, rectosigmoid, and ileum. 2. Stool and purulence noted within collection. 3. Low pelvic anastomosis at 7cm. 4. 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 Umbilical hernia repaired primarily 6. Necessary pfannenstiel to explan the specimen, large phlegmonous mass 7. Left ureter identified and protected throughout the case Complications: None - Other Other Information/Narrative: Pending final dictated report.
--- NOTE | 2020-09-24 19:32 | ANESTHESIA PROCEDURE NOTE ---
Anesth Central Line Template - Central Line Central Line Preparation: Consent Obtained, Time out completed, Ultrasound used, Sterile prep and drape Central line location: Right Brachial Central line type: PICC Double Lumen Central line catheter tip site resides: Superior vena cava (SVC) Central line aftercare: Secured, No complications, Bundle checklist complete, Pt tolerated well
--- NOTE | 2020-09-24 19:59 | XRAY Report ---
PROCEDURE: Chest for Line Placement INDICATIONS: LINE PLACEMENT TECHNIQUE: One view of the chest was acquired. COMPARISON: None FINDINGS: Surgical changes and devices: Right-sided PICC line tip is seen projecting in the expected location o f SVC.. Lungs and pleura: No pleural effusions or pneumothorax. Lungs are clear. Mediastinum: Mediastinal contours appear normal. Heart size is normal. Bones and chest wall: No suspicious bony lesions. Overlying soft tissues appear unremarkable. IMPRESSION: Right-sided PICC line tip is seen projecting in the expected location of SVC. No acute cardiopulmonar y process. Reviewed by: Roger Jacinto MD on 09/24/2020 7:58 PM PST Approved by: Roger Jacinto MD on 09/24/2020 7:58 PM PST Station ID: [id number]
[2020-09-24] MEDS: TRACE ELEMENTS IV SCH ×4 (20:15→21:00)
[2020-09-24] MEDS: TPN IV SCH ×2 (20:15)
--- NOTE | 2020-09-24 20:15 | ANESTHESIA POST OP EVALUATION ---
Anesthesia Post Eval - Post Anesthesia Eval Vitals: Last Vital Signs Temp 36.4 C L 09/24/20 20:05 Pulse 84 09/24/20 20:05 Resp 13 09/24/20 20:05 BP 149/83 H 09/24/20 20:05 Pulse Ox 100 09/24/20 20:05 CV Function Including HR & BP: positive: Stable Pain Control: positive: Satisfactory Nausea & Vomiting: positive: Negative Mental Status: positive: Patient Participates Respiratory Status: Airway Patent Hydration Status: Satisfactory Anesthesia Complications: positive: None
[2020-09-24] MEDS: FAT EMULSION 20% 250 ML IV SCH (20:17)
[2020-09-24] MEDS: LACTATED RINGERS 1,000 ML IV SCH (20:20)
[2020-09-24] MEDS: HYDROmorphone PCA 20MG/100ML IV PRN (20:41)
[2020-09-24] MEDS: PPN IV SCH ×2 (21:00)
[2020-09-24] MEDS: DEXTROSE 5%-0.45% NACL 1,000 ML IV SCH (21:00)
[2020-09-24] MEDS: DOCUSATE SODIUM 100 MG CAPSULE PO SCH (21:01)
[2020-09-24] MEDS: polyethylene glycoL 3350 17 GM PACKET PO SCH (21:01)
[2020-09-24] MEDS: PREGABALIN 100 MG CAPSULE PO SCH (21:01)
[2020-09-25] MEDS: KETOROLAC 30 MG/ML VIAL IVP SCH ×4 (00:04→17:46)
[2020-09-25] MEDS: METOCLOPRAMIDE 10 MG/2 ML VIAL IVP SCH ×3 (00:04→12:34)
[2020-09-25] MEDS: methocarbamoL 500 MG TABLET PO SCH ×2 (00:05→06:15)
[2020-09-25] MEDS: PIPERACILLIN/TAZOBACTAM 3.375 GM in SODIUM CHLORIDE 0.9% MINIBAG 100 ML IV SCH ×3 (02:04→17:13)
[2020-09-25] MEDS: SODIUM CHLORIDE FLUSH 0.9% 10 ML SYRINGE IVP SCH ×6 (02:05→17:48)
[2020-09-25 04:20] LABS: BASOPHILS % (AUTO) 0.2 %; HCT - HEMATOCRIT 39.4 % (42.0-52.0); LYMPHOCYTES % (AUTO) 2.6 %; MEAN CORPUSCULAR HEMOGLOBIN 29.7 pg (27.0-31.0); MEAN CORPUSCULAR VOLUME 90.2 fL (80.0-94.0); MEAN PLATELET VOLUME 10.6 fL (7.4-11.4); MONOCYTES % (AUTO) 2.3 %; NEUTROPHILS % (AUTO) 94.3 %; PLT - PLATELET COUNT 363 10^3/uL (130-450); RED BLOOD COUNT 4.37 10^6/uL (4.70-6.10); RED CELL DISTRIBUTION WIDTH 11.9 % (12.0-15.0); WHITE BLOOD COUNT 26.2 x10^3/uL (4.8-10.8)
[2020-09-25 04:27] LABS: ABNORMAL LYMPHS % (MANUAL) 0 %
[2020-09-25 04:32] LABS: ALBUMIN/GLOBULIN RATIO 0.9 (1.0-2.2); BILIRUBIN,TOTAL 0.5 mg/dL (0.2-1.0); CALCIUM 8.8 mg/dL (8.5-10.3); CREATININE 0.9 mg/dL (0.6-1.2); MAGNESIUM 2.1 mg/dL (1.7-2.8); PHOSPHORUS 2.6 mg/dL (2.5-4.6); POTASSIUM 4.3 mmol/L (3.5-5.0); TOTAL PROTEIN 6.5 g/dL (6.7-8.2)
[2020-09-25 04:50] LABS: BAND NEUTROPHILS % (MANUAL) 9 %; DIFFERENTIAL COMMENT MANUAL DIFFERENTIAL; LYMPHOCYTES # (MANUAL) 0.8 10^3/uL (1.5-3.5); LYMPHOCYTES % (MANUAL) 3 %; MONOCYTES # (MANUAL) 0.8 10^3/uL (0.0-1.0); NEUTROPHILS # (MANUAL) 24.6 10^3/uL (1.5-6.6); PLATELET ESTIMATE, MANUAL NORMAL (130-450,000) (NORMAL); RBC MORPHOLOGY (MULTIPLE) NORMAL APPEARANCE (NORMAL)
[2020-09-25] MEDS: PANTOPRAZOLE 40 MG TABLET PO SCH (06:15)
[2020-09-25] MEDS: LACTATED RINGERS 1,000 ML IV SCH (06:32)
--- NOTE | 2020-09-25 07:48 | PROVIDER PROGRESS NOTE ---
Assessment/Plan - Problem List (1) Diverticulitis Assessment/Plan: Perforation and abscess. Patient is postop day #1 of surgery. Colostomy appreciable. Stoma currently appears red. There is no significant output in the colostomy bag Patient's white blood cell count today is 26. We will continue Zosyn. Cultures obtained during surgery pending Patient is on a [employer]/CUSTODIAN Dilaudid pump. Plan would be to titrate down and wean off. Patient has Tylenol, oxycodone and morphine ordered as needed for pain. He is receiving TPN. Accu-Cheks q. C and sliding scale insulin ordered. Follow goal today would be for patient to be out of bed/up in chair. Dr. Pal with general surgery also following. - Current Meds Current Meds: Current Medications Generic Name Dose Route Start Last Admin Trade Name Freq PRN Reason Stop Dose Admin Acetaminophen 650 mg 09/13/20 22:36 09/24/20 02:28 Acetaminophen 325 Mg Tablet PO 650 mg Q4HR PRN Administration Pain 1 to 4 Docusate Sodium 100 mg 09/24/20 21:00 09/24/20 21:01 Docusate Sodium 100 Mg Capsule PO Not Given BID ASHWIN Enoxaparin Sodium 40 mg 09/14/20 09:00 09/24/20 08:36 Enoxaparin 40 Mg/0.4 Ml Syringe SUBQ Not Given DAILY ASHWIN Hydromorphone HCl 0.2 - 0.6 mg 09/24/20 17:54 09/24/20 20:36 Hydromorphone 0.5 Mg/0.5 Ml Syringe IVP 09/25/20 17:54 0.5 mg Q5M PRN Administration PAIN ([facility]) Hydromorphone HCl 0 mg 09/24/20 19:00 09/24/20 20:41 Hydromorphone Hospice Educator 20mg/100ml IV 0.2 mg PRN PRN Administration PAIN Protocol Piperacillin Sod/Tazobactam 100 mls @ 25 mls/hr 09/17/20 17:00 09/25/20 06:16 Sod 3.375 gm/ Sodium Chloride IV Infused Q8H ASHWIN Infusion Fat Emulsion Intravenous 250 mls @ 21 mls/hr 09/23/20 19:00 09/25/20 07:29 Intralipid 20% IV 21 mls/hr TPN/PPN ASHWIN Infusion TRACE ELEMENTS 1 ml/ Amino Ac/ 2,001 mls @ 83.375 mls/hr 09/24/20 19:00 09/25/20 07:29 Electrol/Dextrose/Calcium IV 83.4 mls/hr TPN/PPN ASHWIN Infusion Ketorolac Tromethamine 15 mg 09/25/20 00:00 09/25/20 06:15 Ketorolac 30 Mg/Ml Vial IVP 09/30/20 00:00 15 mg Q6HR ASHWIN Administration Methocarbamol 500 mg 09/25/20 00:00 09/25/20 06:15 Methocarbamol 500 Mg Tablet PO 500 mg Q6HR ASHWIN Administration Metoclopramide HCl 10 mg 09/25/20 00:00 09/25/20 06:15 Metoclopramide 10 Mg/2 Ml Vial IVP 10 mg Q6HR ASHWIN Administration Multivitamins/Minerals 1 tab 09/23/20 16:00 09/24/20 08:36 Multivitamin W/Minerals Tablet PO 1 tab DAILYWM ASHWIN Administration Ondansetron HCl 4 mg 09/13/20 22:36 09/14/20 12:30 Ondansetron 4 Mg/2 Ml Vial IVP 4 mg Q6HR PRN Administration Nausea / Vomiting Ondansetron HCl 4 mg 09/24/20 17:54 09/24/20 17:55 Ondansetron 4 Mg/2 Ml Vial IVP 09/25/20 17:54 4 mg ONCE PRN Administration N/V ([facility] Choice) Oxycodone HCl 5 mg 09/13/20 22:36 09/24/20 02:28 Oxycodone 5 Mg Tablet PO 5 mg Q4HR PRN Administration Pain 5 to 7 Pantoprazole Sodium 40 mg 09/14/20 07:00 09/25/20 06:15 Pantoprazole 40 Mg Tablet PO 40 mg QDAC ASHWIN Administration Polyethylene Glycol 17 gm 09/24/20 21:00 09/24/20 21:01 Polyethylene Glycol 3350 17 Gm Packet PO Not Given BID ASHWIN Pregabalin 100 mg 09/24/20 21:00 09/24/20 21:01 Pregabalin 100 Mg Capsule PO Not Given BID ASHWIN Sodium Chloride 10 ml 09/13/20 22:36 09/22/20 19:53 Sodium Chloride Flush 0.9% 10 Ml Syringe IVP 10 ml PRN PRN Administration NEEDED PER PROVIDER ORDERS Sodium Chloride 10 ml 09/14/20 01:00 09/25/20 02:05 Sodium Chloride Flush 0.9% 10 Ml Syringe IVP Not Given 0100,0900,1700 [facility] Sodium Chloride 10 ml 09/25/20 01:00 09/25/20 02:06 Sodium Chloride Flush 0.9% 10 Ml Syringe IVP Not Given 0100,0900,1700 ASHWIN - Lab Result Fish Bone Diagrams: 09/25/20 04:00 09/25/20 04:00 Subjective - Subjective Patient Reports: Other (Patient awake and alert at time of exam. He rated his pain 2 out of 10. He denied dyspnea, Chest pain, nausea, vomiting, fever or chills.) Objective Vital Signs: Vital Signs - 24 hr 09/24/20 09/24/20 09/24/20 19:25 19:30 19:34 Temperature 37.2 C 37 C Heart Rate 94 92 84 Heart Rate [ Apical] Heart Rate [ Brachial] Heart Rate [ Monitoring electrodes] Respiratory 22 18 25 H Rate Blood Pressure 169/88 H 171/89 H 171/89 H Blood Pressure [Left Brachial artery] O2 Saturation 99 99 09/24/20 09/24/20 09/24/20 19:35 19:40 19:44 Temperature 36.9 C Heart Rate 89 95 93 Heart Rate [ Apical] Heart Rate [ Brachial] Heart Rate [ Monitoring electrodes] Respiratory 19 20 17 Rate Blood Pressure 150/97 H Blood Pressure [Left Brachial artery] O2 Saturation 100 09/24/20 09/24/20 09/24/20 19:45 19:46 19:47 Temperature 36.9 C Heart Rate 93 93 91 Heart Rate [ Apical] Heart Rate [ Brachial] Heart Rate [ Monitoring electrodes] Respiratory 16 21 19 Rate Blood Pressure 176/161 H Blood Pressure [Left Brachial artery] O2 Saturation 99 09/24/20 09/24/20 09/24/20 19:48 19:50 19:51 Temperature 36.9 C Heart Rate 89 89 86 Heart Rate [ Apical] Heart Rate [ Brachial] Heart Rate [ Monitoring electrodes] Respiratory 9 L 12 11 L Rate Blood Pressure 150/97 H 148/83 H 148/83 H Blood Pressure [Left Brachial artery] O2 Saturation 98 09/24/20 09/24/20 09/24/20 19:55 19:56 20:00 Temperature 36.8 C 36.7 C Heart Rate 86 86 84 Heart Rate [ Apical] Heart Rate [ Brachial] Heart Rate [ Monitoring electrodes] Respiratory 15 15 12 Rate Blood Pressure 143/85 H 143/85 H 147/90 H Blood Pressure [Left Brachial artery] O2 Saturation 99 98 09/24/20 09/24/20 09/24/20 20:01 20:05 20:06 Temperature 36.4 C L Heart Rate 84 85 86 Heart Rate [ Apical] Heart Rate [ Brachial] Heart Rate [ Monitoring electrodes] Respiratory 14 12 14 Rate Blood Pressure 147/90 H 149/83 H 149/83 H Blood Pressure [Left Brachial artery] O2 Saturation 100 09/24/20 09/24/20 09/24/20 20:10 20:11 20:12 Temperature Heart Rate 83 83 84 Heart Rate [ Apical] Heart Rate [ Brachial] Heart Rate [ Monitoring electrodes] Respiratory 14 11 L 10 L Rate Blood Pressure 135/88 H Blood Pressure [Left Brachial artery] O2 Saturation 09/24/20 09/24/20 09/24/20 20:15 20:16 20:20 Temperature Heart Rate 84 84 85 Heart Rate [ 83 Apical] Heart Rate [ 13 L Brachial] Heart Rate [ Monitoring electrodes] Respiratory 11 L 15 15 Rate Blood Pressure 136/92 H Blood Pressure 136/92 H [Left Brachial artery] O2 Saturation 3 L 09/24/20 09/24/20 09/24/20 20:25 20:30 20:31 Temperature Heart Rate 84 81 83 Heart Rate [ 83 Apical] Heart Rate [ 13 L Brachial] Heart Rate [ 83 Monitoring electrodes] Respiratory 15 12 15 Rate Blood Pressure Blood Pressure 139/95 H [Left Brachial artery] O2 Saturation 99 09/24/20 09/24/20 09/24/20 20:32 20:35 20:40 Temperature Heart Rate 82 79 77 Heart Rate [ Apical] Heart Rate [ Brachial] Heart Rate [ Monitoring electrodes] Respiratory 13 18 18 Rate Blood Pressure 139/95 H Blood Pressure [Left Brachial artery] O2 Saturation 09/24/20 09/24/20 09/24/20 20:45 20:46 20:47 Temperature 36.6 C Heart Rate 73 69 Heart Rate [ 72 Apical] Heart Rate [ 14 L Brachial] Heart Rate [ Monitoring electrodes] Respiratory 14 0 L 98 H Rate Blood Pressure 148/74 H Blood Pressure 148/74 H [Left Brachial artery] O2 Saturation 98 09/24/20 09/24/20 09/24/20 20:50 20:55 21:00 Temperature Heart Rate 68 73 71 Heart Rate [ Apical] Heart Rate [ Brachial] Heart Rate [ 70 Monitoring electrodes] Respiratory 11 L 18 15 Rate Blood Pressure Blood Pressure 154/81 H [Left Brachial artery] O2 Saturation 98 09/24/20 09/24/20 09/24/20 21:01 21:05 21:10 Temperature Heart Rate 69 75 73 Heart Rate [ Apical] Heart Rate [ Brachial] Heart Rate [ Monitoring electrodes] Respiratory 17 19 20 Rate Blood Pressure 154/81 H Blood Pressure [Left Brachial artery] O2 Saturation 09/24/20 09/24/20 09/24/20 21:15 21:16 22:00 Temperature Heart Rate 71 70 Heart Rate [ Apical] Heart Rate [ Brachial] Heart Rate [ 65 Monitoring electrodes] Respiratory 19 18 17 Rate Blood Pressure 164/85 H Blood Pressure 167/96 H [Left Brachial artery] O2 Saturation 98 09/24/20 09/24/20 09/24/20 22:44 22:45 22:50 Temperature Heart Rate 65 65 62 Heart Rate [ Apical] Heart Rate [ Brachial] Heart Rate [ Monitoring electrodes] Respiratory 10 L 11 L 12 Rate Blood Pressure 163/94 H Blood Pressure [Left Brachial artery] O2 Saturation 09/24/20 09/24/20 09/24/20 22:55 23:00 23:01 Temperature Heart Rate 67 62 60 Heart Rate [ Apical] Heart Rate [ Brachial] Heart Rate [ 63 Monitoring electrodes] Respiratory 12 15 10 L Rate Blood Pressure Blood Pressure 156/92 H [Left Brachial artery] O2 Saturation 98 09/24/20 09/24/20 09/24/20 23:02 23:05 23:10 Temperature Heart Rate 63 63 64 Heart Rate [ Apical] Heart Rate [ Brachial] Heart Rate [ Monitoring electrodes] Respiratory 12 16 13 Rate Blood Pressure 156/92 H Blood Pressure [Left Brachial artery] O2 Saturation 09/24/20 09/24/20 09/24/20 23:15 23:20 23:25 Temperature Heart Rate 63 65 69 Heart Rate [ Apical] Heart Rate [ Brachial] Heart Rate [ Monitoring electrodes] Respiratory 17 16 15 Rate Blood Pressure Blood Pressure [Left Brachial artery] O2 Saturation 09/24/20 09/24/20 09/24/20 23:30 23:31 23:35 Temperature Heart Rate 66 65 68 Heart Rate [ Apical] Heart Rate [ Brachial] Heart Rate [ Monitoring electrodes] Respiratory 21 17 15 Rate Blood Pressure 159/101 H Blood Pressure [Left Brachial artery] O2 Saturation 09/24/20 09/24/20 09/24/20 23:38 23:39 23:40 Temperature Heart Rate 66 63 62 Heart Rate [ Apical] Heart Rate [ Brachial] Heart Rate [ Monitoring electrodes] Respiratory 16 15 14 Rate Blood Pressure 163/86 H Blood Pressure [Left Brachial artery] O2 Saturation 09/24/20 09/24/20 09/24/20 23:45 23:50 23:55 Temperature Heart Rate 60 62 66 Heart Rate [ Apical] Heart Rate [ Brachial] Heart Rate [ Monitoring electrodes] Respiratory 15 19 16 Rate Blood Pressure Blood Pressure [Left Brachial artery] O2 Saturation 09/25/20 09/25/20 09/25/20 00:00 00:01 00:05 Temperature 37.0 C Heart Rate 63 62 63 Heart Rate [ Apical] Heart Rate [ Brachial] Heart Rate [ 63 Monitoring electrodes] Respiratory 15 14 16 Rate Blood Pressure 159/89 H Blood Pressure 159/89 H [Left Brachial artery] O2 Saturation 97 09/25/20 09/25/20 09/25/20 00:10 00:15 00:20 Temperature Heart Rate 64 65 65 Heart Rate [ Apical] Heart Rate [ Brachial] Heart Rate [ Monitoring electrodes] Respiratory 12 15 13 Rate Blood Pressure Blood Pressure [Left Brachial artery] O2 Saturation 09/25/20 09/25/20 09/25/20 00:25 00:30 00:35 Temperature Heart Rate 65 70 68 Heart Rate [ Apical] Heart Rate [ Brachial] Heart Rate [ Monitoring electrodes] Respiratory 17 15 15 Rate Blood Pressure Blood Pressure [Left Brachial artery] O2 Saturation 09/25/20 09/25/20 09/25/20 00:40 00:45 00:50 Temperature Heart Rate 67 66 69 Heart Rate [ Apical] Heart Rate [ Brachial] Heart Rate [ Monitoring electrodes] Respiratory 18 14 17 Rate Blood Pressure Blood Pressure [Left Brachial artery] O2 Saturation 09/25/20 09/25/20 09/25/20 00:55 01:00 01:01 Temperature Heart Rate 67 67 66 Heart Rate [ Apical] Heart Rate [ Brachial] Heart Rate [ 67 Monitoring electrodes] Respiratory 15 17 16 Rate Blood Pressure 144/82 H Blood Pressure 144/82 H [Left Brachial artery] O2 Saturation 94 09/25/20 09/25/20 09/25/20 01:05 01:10 01:15 Temperature Heart Rate 67 68 67 Heart Rate [ Apical] Heart Rate [ Brachial] Heart Rate [ Monitoring electrodes] Respiratory 16 17 17 Rate Blood Pressure Blood Pressure [Left Brachial artery] O2 Saturation 09/25/20 09/25/20 09/25/20 01:20 01:25 01:30 Temperature Heart Rate 67 66 67 Heart Rate [ Apical] Heart Rate [ Brachial] Heart Rate [ Monitoring electrodes] Respiratory 17 16 17 Rate Blood Pressure Blood Pressure [Left Brachial artery] O2 Saturation 09/25/20 09/25/20 09/25/20 01:35 01:40 01:45 Temperature Heart Rate 66 65 66 Heart Rate [ Apical] Heart Rate [ Brachial] Heart Rate [ Monitoring electrodes] Respiratory 17 16 16 Rate Blood Pressure Blood Pressure [Left Brachial artery] O2 Saturation 09/25/20 09/25/20 09/25/20 01:50 01:55 02:00 Temperature Heart Rate 65 63 68 Heart Rate [ Apical] Heart Rate [ Brachial] Heart Rate [ 64 Monitoring electrodes] Respiratory 15 16 17 Rate Blood Pressure Blood Pressure 153/69 H [Left Brachial artery] O2 Saturation 95 09/25/20 09/25/20 09/25/20 02:01 02:05 02:40 Temperature Heart Rate 64 62 64 Heart Rate [ Apical] Heart Rate [ Brachial] Heart Rate [ Monitoring electrodes] Respiratory 16 15 17 Rate Blood Pressure 153/69 H Blood Pressure [Left Brachial artery] O2 Saturation 09/25/20 09/25/20 09/25/20 02:45 02:50 02:55 Temperature Heart Rate 65 61 63 Heart Rate [ Apical] Heart Rate [ Brachial] Heart Rate [ Monitoring electrodes] Respiratory 18 17 17 Rate Blood Pressure Blood Pressure [Left Brachial artery] O2 Saturation 09/25/20 09/25/20 09/25/20 03:00 03:01 03:05 Temperature Heart Rate 62 61 64 Heart Rate [ Apical] Heart Rate [ Brachial] Heart Rate [ 61 Monitoring electrodes] Respiratory 17 15 17 Rate Blood Pressure 144/77 H Blood Pressure 144/77 H [Left Brachial artery] O2 Saturation 94 09/25/20 09/25/20 09/25/20 03:10 03:15 03:20 Temperature Heart Rate 62 63 63 Heart Rate [ Apical] Heart Rate [ Brachial] Heart Rate [ Monitoring electrodes] Respiratory 18 18 19 Rate Blood Pressure Blood Pressure [Left Brachial artery] O2 Saturation 09/25/20 09/25/20 09/25/20 03:25 03:30 03:35 Temperature Heart Rate 63 63 65 Heart Rate [ Apical] Heart Rate [ Brachial] Heart Rate [ Monitoring electrodes] Respiratory 18 16 15 Rate Blood Pressure Blood Pressure [Left Brachial artery] O2 Saturation 09/25/20 09/25/20 09/25/20 03:40 03:45 03:50 Temperature Heart Rate 60 63 64 Heart Rate [ Apical] Heart Rate [ Brachial] Heart Rate [ Monitoring electrodes] Respiratory 16 16 17 Rate Blood Pressure Blood Pressure [Left Brachial artery] O2 Saturation 09/25/20 09/25/20 09/25/20 03:55 03:59 04:00 Temperature 36.9 C Heart Rate 62 63 66 Heart Rate [ Apical] Heart Rate [ Brachial] Heart Rate [ 69 Monitoring electrodes] Respiratory 18 18 18 Rate Blood Pressure 140/79 H Blood Pressure 140/79 H [Left Brachial artery] O2 Saturation 94 09/25/20 09/25/20 09/25/20 04:01 04:05 04:10 Temperature Heart Rate 64 60 63 Heart Rate [ Apical] Heart Rate [ Brachial] Heart Rate [ Monitoring electrodes] Respiratory 16 18 17 Rate Blood Pressure Blood Pressure [Left Brachial artery] O2 Saturation 09/25/20 09/25/20 09/25/20 04:15 04:20 04:25 Temperature Heart Rate 61 62 61 Heart Rate [ Apical] Heart Rate [ Brachial] Heart Rate [ Monitoring electrodes] Respiratory 12 10 L 19 Rate Blood Pressure Blood Pressure [Left Brachial artery] O2 Saturation 09/25/20 09/25/20 09/25/20 04:30 04:35 04:40 Temperature Heart Rate 63 64 63 Heart Rate [ Apical] Heart Rate [ Brachial] Heart Rate [ Monitoring electrodes] Respiratory 16 17 16 Rate Blood Pressure Blood Pressure [Left Brachial artery] O2 Saturation 09/25/20 09/25/20 09/25/20 04:45 04:50 04:55 Temperature Heart Rate 63 62 66 Heart Rate [ Apical] Heart Rate [ Brachial] Heart Rate [ Monitoring electrodes] Respiratory 17 17 17 Rate Blood Pressure Blood Pressure [Left Brachial artery] O2 Saturation 09/25/20 09/25/20 09/25/20 04:59 05:00 05:01 Temperature Heart Rate 62 62 60 Heart Rate [ Apical] Heart Rate [ Brachial] Heart Rate [ 64 Monitoring electrodes] Respiratory 18 16 16 Rate Blood Pressure 139/86 H Blood Pressure 139/86 H [Left Brachial artery] O2 Saturation 94 09/25/20 09/25/20 09/25/20 05:05 05:10 05:15 Temperature Heart Rate 65 66 67 Heart Rate [ Apical] Heart Rate [ Brachial] Heart Rate [ Monitoring electrodes] Respiratory 16 15 15 Rate Blood Pressure Blood Pressure [Left Brachial artery] O2 Saturation 09/25/20 09/25/20 09/25/20 05:20 05:25 05:30 Temperature Heart Rate 68 66 65 Heart Rate [ Apical] Heart Rate [ Brachial] Heart Rate [ Monitoring electrodes] Respiratory 15 15 14 Rate Blood Pressure Blood Pressure [Left Brachial artery] O2 Saturation 09/25/20 09/25/20 09/25/20 05:35 05:40 05:45 Temperature Heart Rate 63 62 65 Heart Rate [ Apical] Heart Rate [ Brachial] Heart Rate [ Monitoring electrodes] Respiratory 15 16 14 Rate Blood Pressure Blood Pressure [Left Brachial artery] O2 Saturation 09/25/20 09/25/20 09/25/20 05:50 05:55 05:59 Temperature Heart Rate 62 69 64 Heart Rate [ Apical] Heart Rate [ Brachial] Heart Rate [ Monitoring electrodes] Respiratory 13 18 15 Rate Blood Pressure Blood Pressure [Left Brachial artery] O2 Saturation 09/25/20 09/25/20 09/25/20 06:00 06:01 06:05 Temperature Heart Rate 66 71 68 Heart Rate [ Apical] Heart Rate [ Brachial] Heart Rate [ 63 Monitoring electrodes] Respiratory 14 18 20 Rate Blood Pressure 161/79 H Blood Pressure 161/79 H [Left Brachial artery] O2 Saturation 97 09/25/20 09/25/20 06:10 06:27 Temperature Heart Rate 65 Heart Rate [ Apical] Heart Rate [ Brachial] Heart Rate [ Monitoring electrodes] Respiratory 15 16 Rate Blood Pressure Blood Pressure [Left Brachial artery] O2 Saturation Oxygen O2 Source Room air I&O (Last 24 Hrs): Intake and Output Totals x24h 09/23/20 09/24/20 09/25/20 23:59 23:59 23:59 Intake Total 3598.333 3551 2371.779 Output Total 616 154 4862 Balance 3298.333 2966 1306.779 General: Alert, Oriented x3, Mild distress, Moderate distress HEENT: PERRLA, EOMI Neck: Supple, No JVD Neuro: Alert, Non Focal, Oriented Times 3 Cardiovascular: Regular rate, Normal S1, Normal S2 Respiratory: Chest non-tender, No respiratory distress, Breath sounds nml Abdomen: Soft, Other (Colostomy site appreciable. No significant output in bag. Bowel sounds decreased.) Extremities: No clubbing, No cyanosis, No edema Skin: No rashes - Results Results: Laboratory Results WBC 26.2 x10^3/uL (4.8-10.8) H 09/25/20 04:00 RBC 4.37 10^6/uL (4.70-6.10) L 09/25/20 04:00 Hgb 13.0 g/dL (14.0-18.0) L 09/25/20 04:00 Hct 39.4 % (42.0-52.0) L 09/25/20 04:00 MCV 90.2 fL (80.0-94.0) 09/25/20 04:00 MCH 29.7 pg (27.0-31.0) 09/25/20 04:00 MCHC 33.0 g/dL (32.0-36.0) 09/25/20 04:00 RDW 11.9 % (12.0-15.0) L 09/25/20 04:00 Plt Count 363 10^3/uL (130-450) 09/25/20 04:00 MPV 10.6 fL (7.4-11.4) 09/25/20 04:00 Neut # (Auto) Not Reportable 09/25/20 04:00 Lymph # (Auto) Not Reportable 09/25/20 04:00 Lyman # (Auto) Not Reportable 09/25/20 04:00 Eos # (Auto) Not Reportable 09/25/20 04:00 Baso # (Auto) Not Reportable 09/25/20 04:00 Absolute Nucleated RBC Not Reportable 09/25/20 04:00 Total Counted 100 09/25/20 04:00 Band Neuts % (Manual) 9 % (0-10) 09/25/20 04:00 Abnorm Lymph % (Manual) 0 % 09/25/20 04:00 Nucleated RBC % Not Reportable 09/25/20 04:00 Neutrophils # (Manual) 24.6 10^3/uL (1.5-6.6) H 09/25/20 04:00 Lymphocytes # (Manual) 0.8 10^3/uL (1.5-3.5) L 09/25/20 04:00 Monocytes # (Manual) 0.8 10^3/uL (0.0-1.0) 09/25/20 04:00 Eosinophils # (Manual) 0.0 10^3/uL (0-0.7) 09/25/20 04:00 Basophils # (Manual) 0.0 10^3/uL (0-0.1) 09/25/20 04:00 Differential Comment MANUAL DIFFERENTIAL 09/25/20 04:00 WBC Morphology NORMAL APPEARANCE (NORMAL) 09/14/20 04:36 Platelet Estimate NORMAL (130-450,000) (NORMAL) 09/25/20 04:00 Platelet Morphology NORMAL APPEARANCE (NORMAL) 09/14/20 04:36 RBC Morph Micro Appear NORMAL APPEARANCE (NORMAL) 09/25/20 04:00 Sodium 136 mmol/L (135-145) 09/25/20 04:00 Potassium 4.3 mmol/L (3.5-5.0) 09/25/20 04:00 Chloride 103 mmol/L (101-111) 09/25/20 04:00 Carbon Dioxide 21 mmol/L (21-32) 09/25/20 04:00 Anion Gap 12.0 (6-13) 09/25/20 04:00 BUN 15 mg/dL (6-20) 09/25/20 04:00 Creatinine 0.9 mg/dL (0.6-1.2) 09/25/20 04:00 Estimated GFR (MDRD) 88 (>89) L 09/25/20 04:00 Glucose 225 mg/dL (70-100) H 09/25/20 04:00 POC Whole Bld Glucose 234 mg/dL (70 - 100) H 09/24/20 23:58 Lactic Acid 0.9 mmol/L (0.5-2.2) 09/13/20 21:54 Calcium 8.8 mg/dL (8.5-10.3) 09/25/20 04:00 Phosphorus 2.6 mg/dL (2.5-4.6) 09/25/20 04:00 Magnesium 2.1 mg/dL (1.7-2.8) 09/25/20 04:00 Total Bilirubin 0.5 mg/dL (0.2-1.0) 09/25/20 04:00 AST 14 IU/L (10-42) 09/25/20 04:00 ALT 19 IU/L (10-60) 09/25/20 04:00 Alkaline Phosphatase 47 IU/L (42-121) 09/25/20 04:00 C-Reactive Protein 5.9 mg/dL (0-1.0) H 09/23/20 05:09 Total Protein 6.5 g/dL (6.7-8.2) L 09/25/20 04:00 Albumin 3.0 g/dL (3.2-5.5) L 09/25/20 04:00 Globulin 3.5 g/dL (2.1-4.2) 09/25/20 04:00 Albumin/Globulin Ratio 0.9 (1.0-2.2) L 09/25/20 04:00 Prealbumin 14 mg/dL (18-45) L 09/24/20 04:47 Triglycerides 115 mg/dL (-149) 09/24/20 04:47 Lipase 25 U/L (22-51) 09/13/20 21:44 Nasal Adenovirus (PCR) NOT DETECTED 09/14/20 00:00 Nasal B. parapertussis DNA (PCR) NOT DETECTED 09/14/20 00:00 Nasal Coronavir 229E PCR NOT DETECTED 09/14/20 00:00 Nasal Coronavir HKU1 PCR NOT DETECTED 09/14/20 00:00 Nasal Coronavir NL63 PCR NOT DETECTED 09/14/20 00:00 Nasal Coronavir OC43 PCR NOT DETECTED 09/14/20 00:00 Nasal Enterovir/Rhinovir PCR NOT DETECTED 09/14/20 00:00 Nasal Influenza B PCR NOT DETECTED 09/14/20 00:00 Nasal Influenza A PCR NOT DETECTED 09/14/20 00:00 Nasal Parainfluen 1 PCR NOT DETECTED 09/14/20 00:00 Nasal Parainfluen 2 PCR NOT DETECTED 09/14/20 00:00 Nasal Parainfluen 3 PCR NOT DETECTED 09/14/20 00:00 Nasal Parainfluen 4 PCR NOT DETECTED 09/14/20 00:00 Nasal RSV (PCR) NOT DETECTED 09/14/20 00:00 Nasal Screen MRSA (PCR) NEGATIVE (NEGATIVE) 09/24/20 20:58 Nasal B.pertussis DNA PCR NOT DETECTED 09/14/20 00:00 Nasal C.pneumoniae (PCR) NOT DETECTED 09/14/20 00:00 Julio Human Metapneumo PCR NOT DETECTED 09/14/20 00:00 Nasal M.pneumoniae (PCR) NOT DETECTED 09/14/20 00:00 Nasal SARS-CoV-2 (PCR) NOT DETECTED 09/14/20 00:00 Stl C. diff Tox B Gene NEGATIVE (NEGATIVE) 09/15/20 11:04 - Procedures Procedures: Procedures COLONOSCOPY (05/29/13) ABX Reporting Has patient been on IV antibiotics over the past 48 hours?: Yes
[2020-09-25] MEDS: DOCUSATE SODIUM 100 MG CAPSULE PO SCH ×2 (08:35→20:49)
[2020-09-25] MEDS: MULTIVITAMIN W/MINERALS TABLET PO SCH (08:35)
[2020-09-25] MEDS: ACETAMINOPHEN 325 MG TABLET PO PRN ×2 (08:35→14:32)
[2020-09-25] MEDS: PREGABALIN 100 MG CAPSULE PO SCH ×2 (08:35→20:49)
[2020-09-25] MEDS: polyethylene glycoL 3350 17 GM PACKET PO SCH ×2 (08:37→20:49)
[2020-09-25] MEDS: ENOXAPARIN 40 MG/0.4 ML SYRINGE SUBQ SCH (08:49)
[2020-09-25] MEDS: INSULIN REGULAR HUMAN 300 UNIT/3 ML VIAL SUBQ SCH ×3 (08:51→18:11)
[2020-09-25] MEDS: oxyCODONE 5 MG TABLET PO PRN ×2 (10:14→14:28)
[2020-09-25] MEDS: SODIUM CHLORIDE 0.9% 500 ML IV PRN (10:40)
--- NOTE | 2020-09-25 10:48 | PROVIDER PROGRESS NOTE ---
Progress Note Subjective Postoperative day #1 status post below listed procedures. 1. Diagnostic laparoscopy 2. Laparoscopic adhesiolysis, dense and lengthy 3. Laparoscopic anterior resection (7cm anastomosis) 4. Laparoscopic splenic flexure mobilization 5. Rigid proctoscopy 6. Laparoscopic loop ileostomy 7. Tap block per anesthesia 8. Drainage of pelvic abscess 9. Abdominal washout 10. Sampling of pelvic abscess 11. 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 Drain placement 14. Primary umbilical hernia repair Objective Afebrile hemodynamically acceptable General Appearance: positive: No acute distress Eyes Bilateral: positive: Normal inspection ENT: positive: ENT inspection nml Neck: positive: Nml inspection Respiratory: positive: Chest non-tender, No respiratory distress, Breath sounds nml. negative: Wheezes, Rales, Rhonchi Cardiovascular: positive: Regular rate & rhythm Abdomen: positive: No distention, Other. negative: Guarding, Rebound Extremities: positive: Non-tender, Full ROM, Nml appearance Neurologic/Psychiatric: positive: Oriented x3, CN's nml (2-12) Wounds clean dry and intact. Appropriately tender to palpation. Drain serosanguineous. Stoma pink Impression/Plan Postoperative day #1 complex surgical intervention for complicated diverticulitis. Plan going forward is as follows. (1) GI - IVF, TPN, bowel regimen, advance diet as tolerated. GI ppx. Anticipate ileus. Opiate sparring analgesia. (2) SURGERY - Continue TPN. Continue drain. Delayed primary closure for umbilical and Pfannenstiel wounds. Will need packing starting postoperative day #3. Stoma care. Wound and ostomy teaching. PICC line already in place for long-term antibiotics at the time of discharge and IV fluids at the time of discharge.. (3) Renal/Lytes - continue IVF. Renal indices within normal limits. Maintain Tripp until postoperative day #3. (4) Respiratory - O2 as necessary. Continue IS. (5) Heme - Will continue with DVT ppx. H/H stable. (6) Cardiovascular - HD acceptable. (7) Neuro - Opiate sparring analgesia. Antispasmodics with Robaxin. Toradol. Neuropathic agents. (8) Immune/Infectious Disease - Broad-spectrum antibiotics to include vancomycin, Zosyn, and Diflucan. Will de-escalate once cultures return.
--- NOTE | 2020-09-25 17:09 | PHARMACY PROGRESS NOTE ---
- Therapy Status Vancomycin regimen day #: 1 (2000 MG load (22 mg/kg), then 1000 mg q12) Therapy status: Awaiting steady state Basis for treatment: Empirical Treatment indication: prolonged hospital course, empiric for abdominal infection Trough goal: 15-20 Concurrent antibiotics: Zosyn - DAYANA Risk Risk level for Acute Kidney Injury: Moderate Acute Kidney Injury risk factors: Other nephrotoxic agents, Piperacillin/Tozobactam, Goal trough >15, Admission to ICU - Monitoring and Recommendation Clinical response to treatment: I&O Previous 24 hours 09/23/20 09/24/20 09/25/20 23:59 23:59 23:59 Intake Total 3598.333 3551 3346.322 Output Total 446 799 6141 Balance 3298.333 2966 1601.322 Lab Results 09/25/20 09/24/20 09/23/20 04:00 04:47 05:09 BUN 15 9 8 Creatinine 0.9 1.0 1.1 Estimated GFR (MDRD) 88 L 78 L 70 L 09/22/20 09/21/20 09/20/20 05:20 05:00 04:35 BUN 8 7 7 Creatinine 1.1 0.9 1.0 Estimated GFR (MDRD) 70 L 88 L 78 L 09/19/20 09/18/20 09/17/20 04:46 04:43 05:15 BUN 8 9 10 Creatinine 1.1 1.0 0.8 Estimated GFR (MDRD) 70 L 78 L 101 09/16/20 09/15/20 09/14/20 05:02 04:55 04:36 BUN 13 13 19 Creatinine 0.9 1.0 1.0 Estimated GFR (MDRD) 88 L 78 L 78 L 09/13/20 21:44 BUN 24 H Creatinine 1.1 Estimated GFR (MDRD) 70 L Monitoring plan: Daily serum creatinine
[2020-09-25] MEDS ORDERED: VANCOMYCIN INJ 2 GM in SODIUM CHLORIDE 0.9% 500 ML IV ONE (17:30)
[2020-09-25] MEDS: FAT EMULSION 20% 250 ML IV SCH (18:46)
[2020-09-25] MEDS: TPN IV SCH ×2 (18:47)
[2020-09-25] MEDS: TRACE ELEMENTS IV SCH ×2 (18:47)
[2020-09-25] MEDS: SODIUM CHLORIDE FLUSH 0.9% 10 ML SYRINGE IVP PRN (18:49)
[2020-09-25] MEDS: FLUCONAZOLE 200 MG/100 ML 100 ML IV SCH (20:49)
[2020-09-26] MEDS: PIPERACILLIN/TAZOBACTAM 3.375 GM in SODIUM CHLORIDE 0.9% MINIBAG 100 ML IV SCH ×3 (01:16→17:08)
[2020-09-26] MEDS: KETOROLAC 30 MG/ML VIAL IVP SCH ×5 (01:17→23:51)
[2020-09-26] MEDS: oxyCODONE 5 MG TABLET PO PRN ×5 (01:19→21:05)
[2020-09-26] MEDS: ACETAMINOPHEN 325 MG TABLET PO PRN ×5 (01:19→17:09)
[2020-09-26] MEDS: SODIUM CHLORIDE FLUSH 0.9% 10 ML SYRINGE IVP SCH ×8 (01:23→23:52)
[2020-09-26 04:49] LABS: ALBUMIN 2.8 g/dL (3.2-5.5); ALBUMIN/GLOBULIN RATIO 0.9 (1.0-2.2); BILIRUBIN,TOTAL 0.6 mg/dL (0.2-1.0); CALCIUM 8.5 mg/dL (8.5-10.3); CREATININE 0.9 mg/dL (0.6-1.2); MAGNESIUM 2.1 mg/dL (1.7-2.8); PHOSPHORUS 3.4 mg/dL (2.5-4.6); POTASSIUM 3.9 mmol/L (3.5-5.0)
[2020-09-26] MEDS ORDERED: VANCOMYCIN INJ 1 GM in SODIUM CHLORIDE 0.9% 250 ML IV SCH (06:00)
[2020-09-26] MEDS: PANTOPRAZOLE 40 MG TABLET PO SCH (06:33)
--- NOTE | 2020-09-26 07:46 | PROVIDER PROGRESS NOTE ---
Assessment/Plan - Problem List (1) Diverticulitis Assessment/Plan: Perforation and abscess. Patient is postop day #2 of surgery. Colostomy appreciable. Stoma currently appears red. There has been output in the colostomy bag Patient's white blood cell count today improved from 26 to 18. We will continue Zosyn. 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 Plan would be to titrate down and wean off. Patient has Tylenol, oxycodone and morphine ordered as needed for pain. He is receiving TPN. Accu-Cheks q. AC and HS. Sliding scale insulin ordered. He is tolerating a clear liquid diet. General surgery also following. Patient and will receive education regarding care of colostomy/stoma site today Anticipated discharge in 2 to 3 days - Current Meds Current Meds: Current Medications Generic Name Dose Route Start Last Admin Trade Name Freq PRN Reason Stop Dose Admin Acetaminophen 650 mg 09/13/20 22:36 09/26/20 05:06 Acetaminophen 325 Mg Tablet PO 650 mg Q4HR PRN Administration Pain 1 to 4 Docusate Sodium 100 mg 09/24/20 21:00 09/25/20 20:49 Docusate Sodium 100 Mg Capsule PO 100 mg BID ASHWIN Administration Enoxaparin Sodium 40 mg 09/14/20 09:00 09/25/20 08:49 Enoxaparin 40 Mg/0.4 Ml Syringe SUBQ 40 mg DAILY ASHWIN Administration Hydromorphone HCl 0 mg 09/24/20 19:00 09/24/20 20:41 Hydromorphone Managed Care Nurse 20mg/100ml IV 0.2 mg PRN PRN Administration PAIN Protocol Piperacillin Sod/Tazobactam 100 mls @ 25 mls/hr 09/17/20 17:00 09/26/20 07:18 Sod 3.375 gm/ Sodium Chloride IV Infused Q8H ASHWIN Infusion Fat Emulsion Intravenous 250 mls @ 21 mls/hr 09/23/20 19:00 09/26/20 07:17 Intralipid 20% IV Infused TPN/PPN ASHWIN Infusion TRACE ELEMENTS 1 ml/ Amino Ac/ 2,001 mls @ 83.375 mls/hr 09/24/20 19:00 09/25/20 18:47 Electrol/Dextrose/Calcium IV 83.4 mls/hr TPN/PPN ASHWIN Administration Sodium Chloride 500 mls @ 20 mls/hr 09/25/20 09:34 09/25/20 10:40 Normal Saline 0.9% IV 20 mls/hr Q24H PRN Administration TKO RATE Fluconazole 100 mls @ 100 mls/hr 09/25/20 21:00 09/25/20 22:26 Diflucan 200 Mg/100 Ml IV Infused HS ASHWIN Infusion Vancomycin HCl 1 gm/ Sodium 250 mls @ 167 mls/hr 09/26/20 06:00 09/26/20 07:17 Chloride IV Infused Q12H ASHWIN Infusion Ketorolac Tromethamine 15 mg 09/25/20 00:00 09/26/20 05:11 Ketorolac 30 Mg/Ml Vial IVP 09/30/20 00:00 15 mg Q6HR ASHWIN Administration Multivitamins/Minerals 1 tab 09/23/20 16:00 09/25/20 08:35 Multivitamin W/Minerals Tablet PO 1 tab DAILYWM ASHWIN Administration Oxycodone HCl 5 mg 09/13/20 22:36 09/26/20 05:06 Oxycodone 5 Mg Tablet PO 5 mg Q4HR PRN Administration Pain 5 to 7 Pantoprazole Sodium 40 mg 09/14/20 07:00 09/26/20 06:33 Pantoprazole 40 Mg Tablet PO 40 mg QDAC ASHWIN Administration Polyethylene Glycol 17 gm 09/24/20 21:00 09/25/20 20:49 Polyethylene Glycol 3350 17 Gm Packet PO 17 gm BID ASHWIN Administration Pregabalin 100 mg 09/24/20 21:00 09/25/20 20:49 Pregabalin 100 Mg Capsule PO 100 mg BID ASHWIN Administration Sodium Chloride 10 ml 09/13/20 22:36 09/25/20 18:49 Sodium Chloride Flush 0.9% 10 Ml Syringe IVP 10 ml PRN PRN Administration NEEDED PER PROVIDER ORDERS Sodium Chloride 10 ml 09/14/20 01:00 09/26/20 01:23 Sodium Chloride Flush 0.9% 10 Ml Syringe IVP 10 ml 0100,0900,1700 ASHWIN Administration Sodium Chloride 10 ml 09/25/20 01:00 09/26/20 01:23 Sodium Chloride Flush 0.9% 10 Ml Syringe IVP 10 ml 0100,0900,1700 ASHWIN Administration - Lab Result Fish Bone Diagrams: 09/26/20 07:57 09/26/20 03:56 - Additional Planning My Orders: My Active Orders 09/25/20 08:14 Initiate Hypoglycemia Protocol [RC] .protocol 09/25/20 09:34 Sodium Chloride 0.9% [Normal Saline 0.9%] 500 ml IV Q24H 09/26/20 07:44 CBC - COMP BLD CT W/AUTO DIFF [HEME] Stat 09/27/20 05:00 CBC - COMP BLD CT W/AUTO DIFF [HEME] DAILYLAB 09/28/20 05:00 CBC - COMP BLD CT W/AUTO DIFF [HEME] DAILYLAB 09/29/20 05:00 CBC - COMP BLD CT W/AUTO DIFF [HEME] DAILYLAB 09/30/20 05:00 CBC - COMP BLD CT W/AUTO DIFF [HEME] DAILYLAB 10/01/20 05:00 CBC - COMP BLD CT W/AUTO DIFF [HEME] DAILYLAB Subjective - Subjective Patient Reports: Other (Patient was resting comfortably at the time of exam. He rated his pain 2/10. He has been able to tolerate a clear liquid diet for lunch and dinner yesterday as well as breakfast today. He reported output in his colostomy bag. The rest of the visit was unremarkable.) Objective Vital Signs: Vital Signs - 24 hr 09/25/20 09/25/20 09/25/20 08:00 09:00 10:00 Temperature 37.3 C Heart Rate Heart Rate [ 67 64 66 Monitoring electrodes] Respiratory 15 12 16 Rate Blood Pressure 118/102 H 148/93 H 149/100 H [Left Brachial artery] Blood Pressure [Right Brachial artery] O2 Saturation 97 96 97 09/25/20 09/25/20 09/25/20 11:00 12:00 13:00 Temperature Heart Rate Heart Rate [ 65 63 65 Monitoring electrodes] Respiratory 13 13 16 Rate Blood Pressure 146/93 H 163/89 H 139/83 H [Left Brachial artery] Blood Pressure [Right Brachial artery] O2 Saturation 97 96 96 09/25/20 09/25/20 09/25/20 14:00 14:20 14:53 Temperature 37.2 C Heart Rate Heart Rate [ 65 Monitoring electrodes] Respiratory 19 15 Rate Blood Pressure 137/88 H [Left Brachial artery] Blood Pressure [Right Brachial artery] O2 Saturation 95 09/25/20 09/25/20 09/25/20 15:00 16:00 17:00 Temperature Heart Rate Heart Rate [ 60 60 60 Monitoring electrodes] Respiratory 16 14 20 Rate Blood Pressure 146/90 H 127/82 H 134/79 H [Left Brachial artery] Blood Pressure [Right Brachial artery] O2 Saturation 97 95 96 09/25/20 09/25/20 09/25/20 17:50 17:56 18:00 Temperature 37.2 C Heart Rate 65 Heart Rate [ 66 Monitoring electrodes] Respiratory 14 12 14 Rate Blood Pressure 140/96 H [Left Brachial artery] Blood Pressure [Right Brachial artery] O2 Saturation 97 97 09/25/20 09/25/20 09/25/20 19:00 20:00 21:00 Temperature Heart Rate Heart Rate [ 64 61 57 L Monitoring electrodes] Respiratory 16 17 16 Rate Blood Pressure 168/92 H [Left Brachial artery] Blood Pressure 108/77 171/87 H [Right Brachial artery] O2 Saturation 96 98 99 09/25/20 09/25/20 09/26/20 22:00 23:00 01:00 Temperature 37.7 C Heart Rate Heart Rate [ 68 65 58 L Monitoring electrodes] Respiratory 15 17 20 Rate Blood Pressure [Left Brachial artery] Blood Pressure 134/86 H 140/87 H 163/89 H [Right Brachial artery] O2 Saturation 96 96 97 09/26/20 09/26/20 09/26/20 01:30 03:00 05:00 Temperature 37.4 C Heart Rate Heart Rate [ 70 63 Monitoring electrodes] Respiratory 20 16 18 Rate Blood Pressure [Left Brachial artery] Blood Pressure 127/78 150/80 H [Right Brachial artery] O2 Saturation 96 97 09/26/20 07:00 Temperature Heart Rate Heart Rate [ 62 Monitoring electrodes] Respiratory 14 Rate Blood Pressure [Left Brachial artery] Blood Pressure 143/95 H [Right Brachial artery] O2 Saturation 97 Oxygen O2 Source Room air I&O (Last 24 Hrs): Intake and Output Totals x24h 09/24/20 09/25/20 09/26/20 23:59 23:59 23:59 Intake Total 3551 4420.232 800 Output Total 585 2540 1355 Balance 2966 1880.232 -555 General: Alert, Oriented x3, Mild distress, Moderate distress HEENT: Atraumatic, PERRLA, EOMI Neck: Supple, No JVD Neuro: Alert, Non Focal, Oriented Times 3 Cardiovascular: Regular rate Respiratory: Chest non-tender, No respiratory distress, Breath sounds nml Abdomen: Normal bowel sounds, Soft, Other (Stoma site appears. No significant drainage in the colostomy bag currently.) Extremities: No clubbing, No cyanosis, No edema Skin: No rashes - Results Results: Laboratory Results WBC 26.2 x10^3/uL (4.8-10.8) H 09/25/20 04:00 RBC 4.37 10^6/uL (4.70-6.10) L 09/25/20 04:00 Hgb 13.0 g/dL (14.0-18.0) L 09/25/20 04:00 Hct 39.4 % (42.0-52.0) L 09/25/20 04:00 MCV 90.2 fL (80.0-94.0) 09/25/20 04:00 MCH 29.7 pg (27.0-31.0) 09/25/20 04:00 MCHC 33.0 g/dL (32.0-36.0) 09/25/20 04:00 RDW 11.9 % (12.0-15.0) L 09/25/20 04:00 Plt Count 363 10^3/uL (130-450) 09/25/20 04:00 MPV 10.6 fL (7.4-11.4) 09/25/20 04:00 Neut # (Auto) Not Reportable 09/25/20 04:00 Lymph # (Auto) Not Reportable 09/25/20 04:00 [place] # (Auto) Not Reportable 09/25/20 04:00 Eos # (Auto) Not Reportable 09/25/20 04:00 Baso # (Auto) Not Reportable 09/25/20 04:00 Absolute Nucleated RBC Not Reportable 09/25/20 04:00 Total Counted 100 09/25/20 04:00 Band Neuts % (Manual) 9 % (0-10) 09/25/20 04:00 Abnorm Lymph % (Manual) 0 % 09/25/20 04:00 Nucleated RBC % Not Reportable 09/25/20 04:00 Neutrophils # (Manual) 24.6 10^3/uL (1.5-6.6) H 09/25/20 04:00 Lymphocytes # (Manual) 0.8 10^3/uL (1.5-3.5) L 09/25/20 04:00 Monocytes # (Manual) 0.8 10^3/uL (0.0-1.0) 09/25/20 04:00 Eosinophils # (Manual) 0.0 10^3/uL (0-0.7) 09/25/20 04:00 Basophils # (Manual) 0.0 10^3/uL (0-0.1) 09/25/20 04:00 Differential Comment MANUAL DIFFERENTIAL 09/25/20 04:00 WBC Morphology NORMAL APPEARANCE (NORMAL) 09/14/20 04:36 Platelet Estimate NORMAL (130-450,000) (NORMAL) 09/25/20 04:00 Platelet Morphology NORMAL APPEARANCE (NORMAL) 09/14/20 04:36 RBC Morph Micro Appear NORMAL APPEARANCE (NORMAL) 09/25/20 04:00 Sodium 137 mmol/L (135-145) 09/26/20 03:56 Potassium 3.9 mmol/L (3.5-5.0) 09/26/20 03:56 Chloride 104 mmol/L (101-111) 09/26/20 03:56 Carbon Dioxide 26 mmol/L (21-32) 09/26/20 03:56 Anion Gap 7.0 (6-13) 09/26/20 03:56 BUN 20 mg/dL (6-20) 09/26/20 03:56 Creatinine 0.9 mg/dL (0.6-1.2) 09/26/20 03:56 Estimated GFR (MDRD) 88 (>89) L 09/26/20 03:56 Glucose 153 mg/dL (70-100) H 09/26/20 03:56 POC Whole Bld Glucose 179 mg/dL (70 - 100) H 09/25/20 17:45 Lactic Acid 0.9 mmol/L (0.5-2.2) 09/13/20 21:54 Calcium 8.5 mg/dL (8.5-10.3) 09/26/20 03:56 Phosphorus 3.4 mg/dL (2.5-4.6) 09/26/20 03:56 Magnesium 2.1 mg/dL (1.7-2.8) 09/26/20 03:56 Total Bilirubin 0.6 mg/dL (0.2-1.0) 09/26/20 03:56 AST 14 IU/L (10-42) 09/26/20 03:56 ALT 14 IU/L (10-60) 09/26/20 03:56 Alkaline Phosphatase 43 IU/L (42-121) 09/26/20 03:56 C-Reactive Protein 5.9 mg/dL (0-1.0) H 09/23/20 05:09 Total Protein 6.0 g/dL (6.7-8.2) L 09/26/20 03:56 Albumin 2.8 g/dL (3.2-5.5) L 09/26/20 03:56 Globulin 3.2 g/dL (2.1-4.2) 09/26/20 03:56 Albumin/Globulin Ratio 0.9 (1.0-2.2) L 09/26/20 03:56 Prealbumin 13 mg/dL (18-45) L 09/26/20 03:56 Triglycerides 65 mg/dL (-149) 09/26/20 03:56 Lipase 25 U/L (22-51) 09/13/20 21:44 Nasal Adenovirus (PCR) NOT DETECTED 09/14/20 00:00 Nasal B. parapertussis DNA (PCR) NOT DETECTED 09/14/20 00:00 Nasal Coronavir 229E PCR NOT DETECTED 09/14/20 00:00 Nasal Coronavir HKU1 PCR NOT DETECTED 09/14/20 00:00 Nasal Coronavir NL63 PCR NOT DETECTED 09/14/20 00:00 Nasal Coronavir OC43 PCR NOT DETECTED 09/14/20 00:00 Nasal Enterovir/Rhinovir PCR NOT DETECTED 09/14/20 00:00 Nasal Influenza B PCR NOT DETECTED 09/14/20 00:00 Nasal Influenza A PCR NOT DETECTED 09/14/20 00:00 Nasal Parainfluen 1 PCR NOT DETECTED 09/14/20 00:00 Nasal Parainfluen 2 PCR NOT DETECTED 09/14/20 00:00 Nasal Parainfluen 3 PCR NOT DETECTED 09/14/20 00:00 Nasal Parainfluen 4 PCR NOT DETECTED 09/14/20 00:00 Nasal RSV (PCR) NOT DETECTED 09/14/20 00:00 Nasal Screen MRSA (PCR) NEGATIVE (NEGATIVE) 09/24/20 20:58 Nasal B.pertussis DNA PCR NOT DETECTED 09/14/20 00:00 Nasal C.pneumoniae (PCR) NOT DETECTED 09/14/20 00:00 Julio Human Metapneumo PCR NOT DETECTED 09/14/20 00:00 Nasal M.pneumoniae (PCR) NOT DETECTED 09/14/20 00:00 Nasal SARS-CoV-2 (PCR) NOT DETECTED 09/14/20 00:00 Stl C. diff Tox B Gene NEGATIVE (NEGATIVE) 09/15/20 11:04 - Procedures Procedures: Procedures COLONOSCOPY (05/29/13) ABX Reporting Has patient been on IV antibiotics over the past 48 hours?: Yes
[2020-09-26] MEDS: INSULIN ASPART 300 UNIT/3 ML PEN SUBQ SCH ×2 (08:00→12:22)
[2020-09-26] MEDS: INSULIN REGULAR HUMAN 300 UNIT/3 ML VIAL SUBQ SCH (08:11)
[2020-09-26 08:17] LABS: BASOPHILS # (AUTO) 0.1 10^3/uL (0.0-0.1); BASOPHILS % (AUTO) 0.3 %; EOSINOPHILS # (AUTO) 0.1 10^3/uL (0.0-0.7); EOSINOPHILS % (AUTO) 0.3 %; HCT - HEMATOCRIT 37.4 % (42.0-52.0); HGB - HEMOGLOBIN 12.3 g/dL (14.0-18.0); LYMPHOCYTES # (AUTO) 1.9 10^3/uL (1.5-3.5); LYMPHOCYTES % (AUTO) 10.3 %; MEAN CORPUSCULAR HEMOGLOBIN 29.9 pg (27.0-31.0); MEAN CORPUSCULAR HGB CONC 32.9 g/dL (32.0-36.0); MEAN CORPUSCULAR VOLUME 90.8 fL (80.0-94.0); MEAN PLATELET VOLUME 10.9 fL (7.4-11.4); MONOCYTES # (AUTO) 1.3 10^3/uL (0.0-1.0); MONOCYTES % (AUTO) 7.1 %; NEUTROPHILS # (AUTO) 14.9 10^3/uL (1.5-6.6); NEUTROPHILS % (AUTO) 81.5 %; PLT - PLATELET COUNT 356 10^3/uL (130-450); RED BLOOD COUNT 4.12 10^6/uL (4.70-6.10); RED CELL DISTRIBUTION WIDTH 12.2 % (12.0-15.0); WHITE BLOOD COUNT 18.3 x10^3/uL (4.8-10.8)
[2020-09-26] MEDS: DOCUSATE SODIUM 100 MG CAPSULE PO SCH ×2 (09:05→21:04)
[2020-09-26] MEDS: MULTIVITAMIN W/MINERALS TABLET PO SCH (09:05)
[2020-09-26] MEDS: ENOXAPARIN 40 MG/0.4 ML SYRINGE SUBQ SCH (09:13)
[2020-09-26] MEDS: polyethylene glycoL 3350 17 GM PACKET PO SCH ×2 (09:21→21:04)
[2020-09-26] MEDS: PREGABALIN 100 MG CAPSULE PO SCH ×2 (09:26→21:05)
--- NOTE | 2020-09-26 11:16 | PHARMACY PROGRESS NOTE ---
- Therapy Status Vancomycin regimen day #: 2 Therapy status: Awaiting steady state Basis for treatment: Empirical Treatment indication: POST-OP SURGERY PATIENT - BROAD SPECTRUM ABX PER SURGERY Trough goal: 15-20 Concurrent antibiotics: ZOSYN + DIFLUCAN - DAYANA Risk Risk level for Acute Kidney Injury: Moderate Acute Kidney Injury risk factors: Other nephrotoxic agents, Piperacillin/Tozobactam, Goal trough >15, Admission to ICU - Monitoring and Recommendation Clinical response to treatment: I&O Previous 24 hours 09/24/20 09/25/20 09/26/20 23:59 23:59 23:59 Intake Total 3551 4420.232 1520 Output Total 585 2540 1542 Balance 2966 1880.232 -22 Lab Results 09/26/20 09/25/20 09/24/20 03:56 04:00 04:47 BUN 20 15 9 Creatinine 0.9 0.9 1.0 Estimated GFR (MDRD) 88 L 88 L 78 L 09/23/20 09/22/20 09/21/20 05:09 05:20 05:00 BUN 8 8 7 Creatinine 1.1 1.1 0.9 Estimated GFR (MDRD) 70 L 70 L 88 L 09/20/20 09/19/20 09/18/20 04:35 04:46 04:43 BUN 7 8 9 Creatinine 1.0 1.1 1.0 Estimated GFR (MDRD) 78 L 70 L 78 L 09/17/20 09/16/20 09/15/20 05:15 05:02 04:55 BUN 10 13 13 Creatinine 0.8 0.9 1.0 Estimated GFR (MDRD) 101 88 L 78 L 09/14/20 09/13/20 04:36 21:44 BUN 19 24 H Creatinine 1.0 1.1 Estimated GFR (MDRD) 78 L 70 L Monitoring plan: Daily serum creatinine (VANCOMYCIN INITIATED PER SURGERY - BROAD SPECTRUM ABX - NO MICRO SCR: 0.9MG/DL ; CRCL: ~96ML/MIN LOADING DOSE 2GM X1 MAINTENACE DOSE: 1500MG Q12H T1/2 = ~8H TROUGH SCHEDULED FOR 09/27 @ 1500)
[2020-09-26] MEDS: METOCLOPRAMIDE 10 MG/2 ML VIAL IVP PRN ×2 (12:20→18:05)
[2020-09-26] MEDS: SODIUM CHLORIDE 0.9% 500 ML IV PRN (15:00)
[2020-09-26] MEDS: HYDROmorphone PCA 20MG/100ML IV PRN (15:39)
[2020-09-26] MEDS: ONDANSETRON 4 MG/2 ML VIAL IVP PRN (16:12)
[2020-09-26] MEDS: VANCOMYCIN INJ 1 GM, VANCOMYCIN INJ 500 MG in SODIUM CHLORIDE 0.9% 500 ML IV SCH (16:13)
[2020-09-26] MEDS ORDERED: ONDANSETRON 4 MG/2 ML VIAL ONE (16:20)
--- NOTE | 2020-09-26 16:47 | PROVIDER PROGRESS NOTE ---
Subjective - Prog Note Date Prog Note Date: 09/26/20 - Subjective Subjective: minimal pain. some bloating and burping today Objective - Vital Signs/Intake & Output Reviewed Vital Signs: Yes Vital Signs: Vital Signs x48h Temp Pulse Resp BP Pulse Ox 09/26/20 15:30 16 09/26/20 13:00 20 09/26/20 11:00 73 17 173/71 H 96 09/26/20 09:00 36.5 C 70 18 134/88 H 97 Intake & Output: Intake & Output 09/23/20 09/24/20 09/25/20 09/26/20 23:59 23:59 23:59 23:59 Intake Total 3598.333 3551 4920.232 2520.000 Output Total 036 162 8496 1672 Balance 3298.333 2966 2380.232 848.000 - Objective General Appearance: positive: No acute distress, Alert ENT: positive: No signs of dehydration Neck: positive: No JVD Respiratory: positive: No respiratory distress Abdomen: positive: Other (stoma pink with some fluid in the bag. no erythema) - Lab Results Fish Bones: 09/26/20 07:57 09/26/20 03:56 Other Labs: Lab Results x24hrs 09/26/20 09/26/20 09/26/20 Range/Units 12:13 07:57 03:56 WBC 18.3 H (4.8-10.8) x10^3/uL RBC 4.12 L (4.70-6.10) 10^6/uL Hgb 12.3 L (14.0-18.0) g/dL Hct 37.4 L (42.0-52.0) % MCV 90.8 (80.0-94.0) fL MCH 29.9 (27.0-31.0) pg MCHC 32.9 (32.0-36.0) g/dL RDW 12.2 (12.0-15.0) % Plt Count 356 (130-450) 10^3/uL MPV 10.9 (7.4-11.4) fL Neut # (Auto) 14.9 H (1.5-6.6) 10^3/uL Lymph # (Auto) 1.9 (1.5-3.5) 10^3/uL [place] # (Auto) 1.3 H (0.0-1.0) 10^3/uL Eos # (Auto) 0.1 (0.0-0.7) 10^3/uL Baso # (Auto) 0.1 (0.0-0.1) 10^3/uL Absolute Nucleated RBC 0.00 x10^3/uL Nucleated RBC % 0.0 /100WBC Sodium 137 (135-145) mmol/L Potassium 3.9 (3.5-5.0) mmol/L Chloride 104 (101-111) mmol/L Carbon Dioxide 26 (21-32) mmol/L Anion Gap 7.0 (6-13) BUN 20 (6-20) mg/dL Creatinine 0.9 (0.6-1.2) mg/dL Estimated GFR (MDRD) 88 L (>89) Glucose 153 H (70-100) mg/dL POC Whole Bld Glucose 116 H (70 - 100) mg/dL Calcium 8.5 (8.5-10.3) mg/dL Phosphorus 3.4 (2.5-4.6) mg/dL Magnesium 2.1 (1.7-2.8) mg/dL Total Bilirubin 0.6 (0.2-1.0) mg/dL AST 14 (10-42) IU/L ALT 14 (10-60) IU/L Alkaline Phosphatase 43 (42-121) IU/L Total Protein 6.0 L (6.7-8.2) g/dL Albumin 2.8 L (3.2-5.5) g/dL Globulin 3.2 (2.1-4.2) g/dL Albumin/Globulin Ratio 0.9 L (1.0-2.2) Prealbumin 13 L (18-45) mg/dL Triglycerides 65 ( - 149) mg/dL 09/25/20 Range/Units 17:45 WBC (4.8-10.8) x10^3/uL RBC (4.70-6.10) 10^6/uL Hgb (14.0-18.0) g/dL Hct (42.0-52.0) % MCV (80.0-94.0) fL MCH (27.0-31.0) pg MCHC (32.0-36.0) g/dL RDW (12.0-15.0) % Plt Count (130-450) 10^3/uL MPV (7.4-11.4) fL Neut # (Auto) (1.5-6.6) 10^3/uL Lymph # (Auto) (1.5-3.5) 10^3/uL [place] # (Auto) (0.0-1.0) 10^3/uL Eos # (Auto) (0.0-0.7) 10^3/uL Baso # (Auto) (0.0-0.1) 10^3/uL Absolute Nucleated RBC x10^3/uL Nucleated RBC % /100WBC Sodium (135-145) mmol/L Potassium (3.5-5.0) mmol/L Chloride (101-111) mmol/L Carbon Dioxide (21-32) mmol/L Anion Gap (6-13) BUN (6-20) mg/dL Creatinine (0.6-1.2) mg/dL Estimated GFR (MDRD) (>89) Glucose (70-100) mg/dL POC Whole Bld Glucose 179 H (70 - 100) mg/dL Calcium (8.5-10.3) mg/dL Phosphorus (2.5-4.6) mg/dL Magnesium (1.7-2.8) mg/dL Total Bilirubin (0.2-1.0) mg/dL AST (10-42) IU/L ALT (10-60) IU/L Alkaline Phosphatase (42-121) IU/L Total Protein (6.7-8.2) g/dL Albumin (3.2-5.5) g/dL Globulin (2.1-4.2) g/dL Albumin/Globulin Ratio (1.0-2.2) Prealbumin (18-45) mg/dL Triglycerides ( - 149) mg/dL Assessment/Plan - Problem List (1) Diverticulitis of colon with perforation Impression: ileus. continue present care d/c [facility]
[2020-09-26] MEDS: TRACE ELEMENTS IV SCH ×2 (18:12)
[2020-09-26] MEDS: TPN IV SCH ×2 (18:12)
[2020-09-26] MEDS: FAT EMULSION 20% 250 ML IV SCH (18:19)
[2020-09-26] MEDS: PROCHLORPERAZINE 10 MG/2 ML VIAL IVP PRN (20:13)
[2020-09-26] MEDS: hydrALAZINE INJ 20 MG/ML VIAL IVP PRN (20:13)
[2020-09-26] MEDS: SODIUM CHLORIDE FLUSH 0.9% 10 ML SYRINGE IVP PRN (20:14)
[2020-09-26] MEDS: FLUCONAZOLE 200 MG/100 ML 100 ML IV SCH (21:06)
[2020-09-27] MEDS: PIPERACILLIN/TAZOBACTAM 3.375 GM in SODIUM CHLORIDE 0.9% MINIBAG 100 ML IV SCH ×3 (00:39→17:34)
[2020-09-27] MEDS: VANCOMYCIN INJ 1 GM, VANCOMYCIN INJ 500 MG in SODIUM CHLORIDE 0.9% 500 ML IV SCH (03:30)
[2020-09-27 04:50] LABS: BASOPHILS # (AUTO) 0.1 10^3/uL (0.0-0.1); BASOPHILS % (AUTO) 0.3 %; EOSINOPHILS # (AUTO) 0.2 10^3/uL (0.0-0.7); HCT - HEMATOCRIT 37.6 % (42.0-52.0); LYMPHOCYTES # (AUTO) 1.7 10^3/uL (1.5-3.5); LYMPHOCYTES % (AUTO) 10.5 %; MEAN CORPUSCULAR HEMOGLOBIN 29.4 pg (27.0-31.0); MEAN CORPUSCULAR HGB CONC 31.9 g/dL (32.0-36.0); MEAN CORPUSCULAR VOLUME 92.2 fL (80.0-94.0); MEAN PLATELET VOLUME 10.5 fL (7.4-11.4); MONOCYTES # (AUTO) 1.1 10^3/uL (0.0-1.0); MONOCYTES % (AUTO) 6.7 %; NEUTROPHILS # (AUTO) 13.3 10^3/uL (1.5-6.6); NEUTROPHILS % (AUTO) 80.7 %; PLT - PLATELET COUNT 377 10^3/uL (130-450); RED BLOOD COUNT 4.08 10^6/uL (4.70-6.10); RED CELL DISTRIBUTION WIDTH 12.3 % (12.0-15.0); WHITE BLOOD COUNT 16.4 x10^3/uL (4.8-10.8)
[2020-09-27] MEDS: PANTOPRAZOLE 40 MG TABLET PO SCH (06:03)
[2020-09-27] MEDS: KETOROLAC 30 MG/ML VIAL IVP SCH ×3 (06:03→17:28)
--- NOTE | 2020-09-27 08:53 | PROVIDER PROGRESS NOTE ---
Assessment/Plan - Problem List (1) Diverticulitis Assessment/Plan: Perforation and abscess. Patient is postop day #3 of surgery. Colostomy appreciable. Stoma currently appears reddish-pink. No output in the colostomy bag for the past 12 hours Patient's white blood cell count today continues to improve from 18 to 16. We will continue Zosyn. Plan is to continue IV antibiotics until postop day # 10. 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 Plan would be to titrate down and wean off. Patient has Tylenol, oxycodone and morphine ordered as needed for pain. He is receiving TPN. Accu-Cheks q. AC and HS. Sliding scale insulin ordered. Continue clear liquid diet. General surgery also following. Patient and educated regarding care of colostomy/stoma site yesterday Anticipated discharge in 3 to 4 days - Current Meds Current Meds: Current Medications Generic Name Dose Route Start Last Admin Trade Name Freq PRN Reason Stop Dose Admin Acetaminophen 650 mg 09/13/20 22:36 09/26/20 17:09 Acetaminophen 325 Mg Tablet PO 650 mg Q4HR PRN Administration Pain 1 to 4 Docusate Sodium 100 mg 09/24/20 21:00 09/26/20 21:04 Docusate Sodium 100 Mg Capsule PO 100 mg BID ASHWIN Administration Enoxaparin Sodium 40 mg 09/14/20 09:00 09/26/20 09:13 Enoxaparin 40 Mg/0.4 Ml Syringe SUBQ 40 mg DAILY ASHWIN Administration Hydralazine HCl 10 mg 09/17/20 11:31 09/26/20 20:13 Hydralazine Inj 20 Mg/Ml Vial IVP 10 mg Q4H PRN Administration PRN if SBP>170 Hydromorphone HCl 0 mg 09/24/20 19:00 09/26/20 15:39 Hydromorphone Dredgemaster 20mg/100ml IV 0.2 mg PRN PRN Administration PAIN Protocol Piperacillin Sod/Tazobactam 100 mls @ 25 mls/hr 09/17/20 17:00 09/27/20 04:54 Sod 3.375 gm/ Sodium Chloride IV Infused Q8H ASHWIN Infusion Fat Emulsion Intravenous 250 mls @ 21 mls/hr 09/23/20 19:00 09/27/20 06:21 Intralipid 20% IV Infused TPN/PPN ASHWIN Infusion TRACE ELEMENTS 1 ml/ Amino Ac/ 2,001 mls @ 83.375 mls/hr 09/24/20 19:00 09/26/20 18:12 Electrol/Dextrose/Calcium IV 83.4 mls/hr TPN/PPN ASHWIN Administration Sodium Chloride 500 mls @ 20 mls/hr 09/25/20 09:34 09/26/20 15:00 Normal Saline 0.9% IV 20 mls/hr Q24H PRN Administration TKO RATE Fluconazole 100 mls @ 100 mls/hr 09/25/20 21:00 09/26/20 22:28 Diflucan 200 Mg/100 Ml IV Infused HS ASHWIN Infusion Vancomycin HCl 1 gm/ 500 mls @ 250 mls/hr 09/26/20 16:00 09/27/20 05:35 Vancomycin HCl 500 mg/ Sodium IV Infused Chloride Q12H ASHWIN Infusion Ketorolac Tromethamine 15 mg 09/25/20 00:00 09/27/20 06:03 Ketorolac 30 Mg/Ml Vial IVP 09/30/20 00:00 15 mg Q6HR ASHWIN Administration Multivitamins/Minerals 1 tab 09/23/20 16:00 09/26/20 09:05 Multivitamin W/Minerals Tablet PO 1 tab DAILYWM ASHWIN Administration Oxycodone HCl 5 mg 09/13/20 22:36 09/26/20 21:05 Oxycodone 5 Mg Tablet PO 5 mg Q4HR PRN Administration Pain 5 to 7 Pantoprazole Sodium 40 mg 09/14/20 07:00 09/27/20 06:03 Pantoprazole 40 Mg Tablet PO 40 mg QDAC ASHWIN Administration Polyethylene Glycol 17 gm 09/24/20 21:00 09/26/20 21:04 Polyethylene Glycol 3350 17 Gm Packet PO 17 gm BID ASHWIN Administration Pregabalin 100 mg 09/24/20 21:00 09/26/20 21:05 Pregabalin 100 Mg Capsule PO 100 mg BID ASHWIN Administration Prochlorperazine Edisylate 10 mg 09/26/20 17:04 09/26/20 20:13 Prochlorperazine 10 Mg/2 Ml Vial IVP 10 mg Q6HR PRN Administration Nausea / Vomiting Sodium Chloride 10 ml 09/13/20 22:36 09/26/20 20:14 Sodium Chloride Flush 0.9% 10 Ml Syringe IVP 10 ml PRN PRN Administration NEEDED PER PROVIDER ORDERS Sodium Chloride 10 ml 09/14/20 01:00 09/26/20 23:52 Sodium Chloride Flush 0.9% 10 Ml Syringe IVP 10 ml 0100,0900,1700 ASHWIN Administration Sodium Chloride 10 ml 09/25/20 01:00 09/26/20 18:06 Sodium Chloride Flush 0.9% 10 Ml Syringe IVP 10 ml 0100,0900,1700 ASHWIN Administration - Lab Result Fish Bone Diagrams: 09/27/20 04:45 09/26/20 03:56 - Additional Planning My Orders: My Active Orders 09/26/20 16:00 Vancomycin Inj [Vancomycin] 1 gm Vancomycin Inj 500 mg Sodium Chloride 0.9% [Normal Saline 0.9%] 500 ml IV Q12H 09/26/20 17:04 Prochlorperazine Inj [Compazine Inj] 10 mg IVP Q6HR PRN 09/28/20 05:00 CBC - COMP BLD CT W/AUTO DIFF [HEME] DAILYLAB 09/29/20 05:00 CBC - COMP BLD CT W/AUTO DIFF [HEME] DAILYLAB 09/30/20 05:00 CBC - COMP BLD CT W/AUTO DIFF [HEME] DAILYLAB 10/01/20 05:00 CBC - COMP BLD CT W/AUTO DIFF [HEME] DAILYLAB Subjective - Subjective Patient Reports: Other (Patient reports feeling better currently but experience significant abdominal pain and nausea yesterday.There has been nothing through the ostomy bag over the past 12 hours. He also has significant scrotal edema but no pain.He denies any other complaints) Objective Vital Signs: Vital Signs - 24 hr 09/26/20 09/26/20 09/26/20 09:00 11:00 13:00 Temperature 36.5 C Heart Rate [ Brachial] Heart Rate [ 70 73 Monitoring electrodes] Respiratory 18 17 20 Rate Blood Pressure Blood Pressure [Left Brachial artery] Blood Pressure 134/88 H 173/71 H [Right Brachial artery] O2 Saturation 97 96 09/26/20 09/26/20 09/26/20 15:30 17:00 18:42 Temperature 36.7 C Heart Rate [ Brachial] Heart Rate [ 66 Monitoring electrodes] Respiratory 16 18 17 Rate Blood Pressure Blood Pressure [Left Brachial artery] Blood Pressure 160/101 H [Right Brachial artery] O2 Saturation 95 09/26/20 09/26/20 09/26/20 20:02 20:13 20:25 Temperature 37.2 C Heart Rate [ Brachial] Heart Rate [ 76 76 Monitoring electrodes] Respiratory 19 22 Rate Blood Pressure 180/101 H Blood Pressure 180/101 H 162/94 H [Left Brachial artery] Blood Pressure [Right Brachial artery] O2 Saturation 96 96 09/26/20 09/26/20 09/26/20 20:43 20:46 21:03 Temperature Heart Rate [ Brachial] Heart Rate [ 76 77 Monitoring electrodes] Respiratory 19 15 Rate Blood Pressure 176/79 H Blood Pressure 176/79 H 138/95 H [Left Brachial artery] Blood Pressure [Right Brachial artery] O2 Saturation 96 97 09/26/20 09/26/20 09/26/20 21:33 22:22 23:50 Temperature Heart Rate [ Brachial] Heart Rate [ 76 76 Monitoring electrodes] Respiratory 16 18 16 Rate Blood Pressure Blood Pressure 154/88 H 168/92 H [Left Brachial artery] Blood Pressure [Right Brachial artery] O2 Saturation 96 96 09/27/20 09/27/20 09/27/20 00:15 03:00 04:44 Temperature 36.6 C 36.7 C Heart Rate [ 70 Brachial] Heart Rate [ 76 Monitoring electrodes] Respiratory 12 16 18 Rate Blood Pressure Blood Pressure 159/92 H 143/89 H [Left Brachial artery] Blood Pressure [Right Brachial artery] O2 Saturation 96 96 09/27/20 06:17 Temperature Heart Rate [ Brachial] Heart Rate [ Monitoring electrodes] Respiratory 16 Rate Blood Pressure Blood Pressure [Left Brachial artery] Blood Pressure [Right Brachial artery] O2 Saturation Oxygen O2 Source Room air I&O (Last 24 Hrs): Intake and Output Totals x24h 09/25/20 09/26/20 09/27/20 23:59 23:59 23:59 Intake Total 4920.232 5272.950 1701.667 Output Total 2540 2 923 Balance 2380.232 3250.950 778.667 General: Mild distress, Moderate distress HEENT: PERRLA, EOMI Neck: Supple, No JVD Neuro: Alert, Non Focal, Oriented Times 3 Cardiovascular: Regular rate, Normal S1, Normal S2 Respiratory: Chest non-tender, No respiratory distress, Breath sounds nml Abdomen: Normal bowel sounds, Soft, Other (Mild to moderate tenderness) Genitourinary: Other (Scrotal edema, no testicular tenderness) Extremities: No clubbing, No cyanosis, No edema Skin: No rashes - Results Results: Laboratory Results WBC 16.4 x10^3/uL (4.8-10.8) H 09/27/20 04:45 RBC 4.08 10^6/uL (4.70-6.10) L 09/27/20 04:45 Hgb 12.0 g/dL (14.0-18.0) L 09/27/20 04:45 Hct 37.6 % (42.0-52.0) L 09/27/20 04:45 MCV 92.2 fL (80.0-94.0) 09/27/20 04:45 MCH 29.4 pg (27.0-31.0) 09/27/20 04:45 MCHC 31.9 g/dL (32.0-36.0) L 09/27/20 04:45 RDW 12.3 % (12.0-15.0) 09/27/20 04:45 Plt Count 377 10^3/uL (130-450) 09/27/20 04:45 MPV 10.5 fL (7.4-11.4) 09/27/20 04:45 Neut # (Auto) 13.3 10^3/uL (1.5-6.6) H 09/27/20 04:45 Lymph # (Auto) 1.7 10^3/uL (1.5-3.5) 09/27/20 04:45 [place] # (Auto) 1.1 10^3/uL (0.0-1.0) H 09/27/20 04:45 Eos # (Auto) 0.2 10^3/uL (0.0-0.7) 09/27/20 04:45 Baso # (Auto) 0.1 10^3/uL (0.0-0.1) 09/27/20 04:45 Absolute Nucleated RBC 0.00 x10^3/uL 09/27/20 04:45 Total Counted 100 09/25/20 04:00 Band Neuts % (Manual) 9 % (0-10) 09/25/20 04:00 Abnorm Lymph % (Manual) 0 % 09/25/20 04:00 Nucleated RBC % 0.0 /100WBC 09/27/20 04:45 Neutrophils # (Manual) 24.6 10^3/uL (1.5-6.6) H 09/25/20 04:00 Lymphocytes # (Manual) 0.8 10^3/uL (1.5-3.5) L 09/25/20 04:00 Monocytes # (Manual) 0.8 10^3/uL (0.0-1.0) 09/25/20 04:00 Eosinophils # (Manual) 0.0 10^3/uL (0-0.7) 09/25/20 04:00 Basophils # (Manual) 0.0 10^3/uL (0-0.1) 09/25/20 04:00 Differential Comment MANUAL DIFFERENTIAL 09/25/20 04:00 WBC Morphology NORMAL APPEARANCE (NORMAL) 09/14/20 04:36 Platelet Estimate NORMAL (130-450,000) (NORMAL) 09/25/20 04:00 Platelet Morphology NORMAL APPEARANCE (NORMAL) 09/14/20 04:36 RBC Morph Micro Appear NORMAL APPEARANCE (NORMAL) 09/25/20 04:00 Sodium 137 mmol/L (135-145) 09/26/20 03:56 Potassium 3.9 mmol/L (3.5-5.0) 09/26/20 03:56 Chloride 104 mmol/L (101-111) 09/26/20 03:56 Carbon Dioxide 26 mmol/L (21-32) 09/26/20 03:56 Anion Gap 7.0 (6-13) 09/26/20 03:56 BUN 20 mg/dL (6-20) 09/26/20 03:56 Creatinine 0.9 mg/dL (0.6-1.2) 09/26/20 03:56 Estimated GFR (MDRD) 88 (>89) L 09/26/20 03:56 Glucose 153 mg/dL (70-100) H 09/26/20 03:56 POC Whole Bld Glucose 116 mg/dL (70 - 100) H 09/26/20 12:13 Lactic Acid 0.9 mmol/L (0.5-2.2) 09/13/20 21:54 Calcium 8.5 mg/dL (8.5-10.3) 09/26/20 03:56 Phosphorus 3.4 mg/dL (2.5-4.6) 09/26/20 03:56 Magnesium 2.1 mg/dL (1.7-2.8) 09/26/20 03:56 Total Bilirubin 0.6 mg/dL (0.2-1.0) 09/26/20 03:56 AST 14 IU/L (10-42) 09/26/20 03:56 ALT 14 IU/L (10-60) 09/26/20 03:56 Alkaline Phosphatase 43 IU/L (42-121) 09/26/20 03:56 C-Reactive Protein 5.9 mg/dL (0-1.0) H 09/23/20 05:09 Total Protein 6.0 g/dL (6.7-8.2) L 09/26/20 03:56 Albumin 2.8 g/dL (3.2-5.5) L 09/26/20 03:56 Globulin 3.2 g/dL (2.1-4.2) 09/26/20 03:56 Albumin/Globulin Ratio 0.9 (1.0-2.2) L 09/26/20 03:56 Prealbumin 13 mg/dL (18-45) L 09/26/20 03:56 Triglycerides 65 mg/dL (-149) 09/26/20 03:56 Lipase 25 U/L (22-51) 09/13/20 21:44 Nasal Adenovirus (PCR) NOT DETECTED 09/14/20 00:00 Nasal B. parapertussis DNA (PCR) NOT DETECTED 09/14/20 00:00 Nasal Coronavir 229E PCR NOT DETECTED 09/14/20 00:00 Nasal Coronavir HKU1 PCR NOT DETECTED 09/14/20 00:00 Nasal Coronavir NL63 PCR NOT DETECTED 09/14/20 00:00 Nasal Coronavir OC43 PCR NOT DETECTED 09/14/20 00:00 Nasal Enterovir/Rhinovir PCR NOT DETECTED 09/14/20 00:00 Nasal Influenza B PCR NOT DETECTED 09/14/20 00:00 Nasal Influenza A PCR NOT DETECTED 09/14/20 00:00 Nasal Parainfluen 1 PCR NOT DETECTED 09/14/20 00:00 Nasal Parainfluen 2 PCR NOT DETECTED 09/14/20 00:00 Nasal Parainfluen 3 PCR NOT DETECTED 09/14/20 00:00 Nasal Parainfluen 4 PCR NOT DETECTED 09/14/20 00:00 Nasal RSV (PCR) NOT DETECTED 09/14/20 00:00 Nasal Screen MRSA (PCR) NEGATIVE (NEGATIVE) 09/24/20 20:58 Nasal B.pertussis DNA PCR NOT DETECTED 09/14/20 00:00 Nasal C.pneumoniae (PCR) NOT DETECTED 09/14/20 00:00 Julio Human Metapneumo PCR NOT DETECTED 09/14/20 00:00 Nasal M.pneumoniae (PCR) NOT DETECTED 09/14/20 00:00 Nasal SARS-CoV-2 (PCR) NOT DETECTED 09/14/20 00:00 Stl C. diff Tox B Gene NEGATIVE (NEGATIVE) 09/15/20 11:04 - Procedures Procedures: Procedures COLONOSCOPY (05/29/13) ABX Reporting Has patient been on IV antibiotics over the past 48 hours?: Yes
[2020-09-27] MEDS: PREGABALIN 100 MG CAPSULE PO SCH ×2 (09:37→21:28)
[2020-09-27] MEDS: DOCUSATE SODIUM 100 MG CAPSULE PO SCH ×2 (09:38→21:28)
[2020-09-27] MEDS: polyethylene glycoL 3350 17 GM PACKET PO SCH ×2 (09:38→21:28)
[2020-09-27] MEDS: ENOXAPARIN 40 MG/0.4 ML SYRINGE SUBQ SCH (09:38)
[2020-09-27] MEDS: MULTIVITAMIN W/MINERALS TABLET PO SCH (09:38)
[2020-09-27] MEDS: SODIUM CHLORIDE FLUSH 0.9% 10 ML SYRINGE IVP SCH ×3 (09:55→17:28)
[2020-09-27] MEDS: HYDROmorphone 1 MG/ML CARPUJECT IVP PRN ×2 (12:30→13:08)
--- NOTE | 2020-09-27 14:29 | PROVIDER PROGRESS NOTE ---
Subjective - Subjective Pt reports feeling: Improved (less cramping no nausea no appetite) Objective - Vital Signs/Intake & Output Reviewed Vital Signs: Yes Vital Signs: Vital Signs x48h Temp Pulse Resp BP Pulse Ox 09/27/20 13:00 37.0 C 75 16 139/84 H 95 09/27/20 09:00 37.2 C 91 18 150/91 H 96 Intake & Output: Intake & Output 09/24/20 09/25/20 09/26/20 09/27/20 23:59 23:59 23:59 23:59 Intake Total 3551 4920.232 5272.950 2441.667 Output Total 585 2540 2022 1073 Balance 2966 2380.232 3250.950 1368.667 - Objective General Appearance: positive: No acute distress, Alert Eyes Bilateral: positive: Normal inspection, PERRL ENT: positive: No signs of dehydration Neck: positive: No JVD Respiratory: positive: Chest non-tender Abdomen: positive: Non-tender, No distention, Other (no erythema. dressing changed) - Lab Results Fish Bones: 09/27/20 04:45 09/26/20 03:56 Other Labs: Lab Results x24hrs 09/27/20 Range/Units 04:45 WBC 16.4 H (4.8-10.8) x10^3/uL RBC 4.08 L (4.70-6.10) 10^6/uL Hgb 12.0 L (14.0-18.0) g/dL Hct 37.6 L (42.0-52.0) % MCV 92.2 (80.0-94.0) fL MCH 29.4 (27.0-31.0) pg MCHC 31.9 L (32.0-36.0) g/dL RDW 12.3 (12.0-15.0) % Plt Count 377 (130-450) 10^3/uL MPV 10.5 (7.4-11.4) fL Neut # (Auto) 13.3 H (1.5-6.6) 10^3/uL Lymph # (Auto) 1.7 (1.5-3.5) 10^3/uL [place] # (Auto) 1.1 H (0.0-1.0) 10^3/uL Eos # (Auto) 0.2 (0.0-0.7) 10^3/uL Baso # (Auto) 0.1 (0.0-0.1) 10^3/uL Absolute Nucleated RBC 0.00 x10^3/uL Nucleated RBC % 0.0 /100WBC Assessment/Plan - Problem List (1) Diverticulitis of colon with perforation Impression: ileus. slow improvement
[2020-09-27] MEDS: TRACE ELEMENTS IV SCH ×2 (19:12)
[2020-09-27] MEDS: TPN IV SCH ×2 (19:12)
[2020-09-27] MEDS: FAT EMULSION 20% 250 ML IV SCH (19:13)
[2020-09-27] MEDS: ACETAMINOPHEN 325 MG TABLET PO PRN (19:22)
[2020-09-27] MEDS: oxyCODONE 5 MG TABLET PO PRN (19:23)
[2020-09-28] MEDS: KETOROLAC 30 MG/ML VIAL IVP SCH ×5 (00:47→23:59)
[2020-09-28] MEDS: SODIUM CHLORIDE FLUSH 0.9% 10 ML SYRINGE IVP SCH ×3 (00:48→17:40)
[2020-09-28] MEDS: HYDROmorphone 1 MG/ML CARPUJECT IVP PRN (01:02)
[2020-09-28] MEDS: PIPERACILLIN/TAZOBACTAM 3.375 GM in SODIUM CHLORIDE 0.9% MINIBAG 100 ML IV SCH ×3 (01:09→17:41)
[2020-09-28 05:58] LABS: BASOPHILS # (AUTO) 0.1 10^3/uL (0.0-0.1); BASOPHILS % (AUTO) 0.4 %; EOSINOPHILS # (AUTO) 0.3 10^3/uL (0.0-0.7); EOSINOPHILS % (AUTO) 2.1 %; HCT - HEMATOCRIT 37.6 % (42.0-52.0); HGB - HEMOGLOBIN 12.3 g/dL (14.0-18.0); LYMPHOCYTES # (AUTO) 1.6 10^3/uL (1.5-3.5); MEAN CORPUSCULAR HEMOGLOBIN 29.8 pg (27.0-31.0); MEAN CORPUSCULAR HGB CONC 32.7 g/dL (32.0-36.0); MEAN PLATELET VOLUME 10.6 fL (7.4-11.4); MONOCYTES # (AUTO) 1.2 10^3/uL (0.0-1.0); MONOCYTES % (AUTO) 7.7 %; NEUTROPHILS # (AUTO) 12.7 10^3/uL (1.5-6.6); NEUTROPHILS % (AUTO) 78.9 %; PLT - PLATELET COUNT 387 10^3/uL (130-450); RED BLOOD COUNT 4.13 10^6/uL (4.70-6.10); RED CELL DISTRIBUTION WIDTH 12.1 % (12.0-15.0); WHITE BLOOD COUNT 16.1 x10^3/uL (4.8-10.8)
[2020-09-28] MEDS: SODIUM CHLORIDE FLUSH 0.9% 10 ML SYRINGE IVP PRN ×2 (06:07→10:26)
[2020-09-28] MEDS: PANTOPRAZOLE 40 MG TABLET PO SCH (06:17)
[2020-09-28 06:56] LABS: ALBUMIN 2.5 g/dL (3.2-5.5); ALBUMIN/GLOBULIN RATIO 0.8 (1.0-2.2); BILIRUBIN,TOTAL 0.4 mg/dL (0.2-1.0); CREATININE 0.9 mg/dL (0.6-1.2); MAGNESIUM 1.8 mg/dL (1.7-2.8); PHOSPHORUS 3.7 mg/dL (2.5-4.6); POTASSIUM 4.3 mmol/L (3.5-5.0); TOTAL PROTEIN 5.5 g/dL (6.7-8.2)
--- NOTE | 2020-09-28 07:41 | PROVIDER PROGRESS NOTE ---
Assessment/Plan - Problem List (1) Diverticulitis Assessment/Plan: Perforation and abscess. Patient is postop day #4 of surgery. Colostomy appreciable. Stoma currently appears reddish-pink. Greenish liquid output in the colostomy bag Patient's white blood cell count today stayed at 16. We will continue Zosyn. Plan is to continue IV antibiotics until postop day # 10. 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 Patient has Tylenol, oxycodone and morphine ordered as needed for pain. Pregabalin and Toradol added as needed MiraLAX discontinued. lactulose ordered He is receiving TPN. Accu-Cheks q. AC and HS. Sliding scale insulin ordered. Continue clear liquid diet. General surgery also following. Patient and educated regarding care of colostomy/stoma site yesterday Anticipated discharge in 2 to 3 days - Current Meds Current Meds: Current Medications Generic Name Dose Route Start Last Admin Trade Name Freq PRN Reason Stop Dose Admin Acetaminophen 650 mg 09/13/20 22:36 09/27/20 19:22 Acetaminophen 325 Mg Tablet PO 650 mg Q4HR PRN Administration Pain 1 to 4 Docusate Sodium 100 mg 09/24/20 21:00 09/27/20 21:28 Docusate Sodium 100 Mg Capsule PO 100 mg BID ASHWIN Administration Enoxaparin Sodium 40 mg 09/14/20 09:00 09/27/20 09:38 Enoxaparin 40 Mg/0.4 Ml Syringe SUBQ 40 mg DAILY ASHWIN Administration Hydralazine HCl 10 mg 09/17/20 11:31 09/26/20 20:13 Hydralazine Inj 20 Mg/Ml Vial IVP 10 mg Q4H PRN Administration PRN if SBP>170 Hydromorphone HCl 1 mg 09/27/20 10:17 09/28/20 01:02 Hydromorphone 1 Mg/Ml Carpuject IVP 1 mg Q2HR PRN Administration PAIN Piperacillin Sod/Tazobactam 100 mls @ 25 mls/hr 09/17/20 17:00 09/28/20 05:10 Sod 3.375 gm/ Sodium Chloride IV Infused Q8H ASHWIN Infusion Fat Emulsion Intravenous 250 mls @ 21 mls/hr 09/23/20 19:00 09/28/20 07:15 Intralipid 20% IV Infused TPN/PPN ASHWIN Infusion TRACE ELEMENTS 1 ml/ Amino Ac/ 2,001 mls @ 83.375 mls/hr 09/24/20 19:00 09/27/20 19:12 Electrol/Dextrose/Calcium IV 83.4 mls/hr TPN/PPN ASHWIN Administration Sodium Chloride 500 mls @ 20 mls/hr 09/25/20 09:34 09/27/20 14:42 Normal Saline 0.9% IV Infused Q24H PRN Infusion TKO RATE Ketorolac Tromethamine 15 mg 09/25/20 00:00 09/28/20 06:06 Ketorolac 30 Mg/Ml Vial IVP 09/30/20 00:00 15 mg Q6HR ASHWIN Administration Multivitamins/Minerals 1 tab 09/23/20 16:00 09/27/20 09:38 Multivitamin W/Minerals Tablet PO 1 tab DAILYWM ASHWIN Administration Oxycodone HCl 5 mg 09/13/20 22:36 09/27/20 19:23 Oxycodone 5 Mg Tablet PO 5 mg Q4HR PRN Administration Pain 5 to 7 Pantoprazole Sodium 40 mg 09/14/20 07:00 09/28/20 06:17 Pantoprazole 40 Mg Tablet PO 40 mg QDAC ASHWIN Administration Polyethylene Glycol 17 gm 09/24/20 21:00 09/27/20 21:28 Polyethylene Glycol 3350 17 Gm Packet PO 17 gm BID ASHWIN Administration Pregabalin 100 mg 09/24/20 21:00 09/27/20 21:28 Pregabalin 100 Mg Capsule PO 100 mg BID ASHWIN Administration Prochlorperazine Edisylate 10 mg 09/26/20 17:04 09/26/20 20:13 Prochlorperazine 10 Mg/2 Ml Vial IVP 10 mg Q6HR PRN Administration Nausea / Vomiting Sodium Chloride 10 ml 09/13/20 22:36 09/28/20 06:07 Sodium Chloride Flush 0.9% 10 Ml Syringe IVP 20 ml PRN PRN Administration NEEDED PER PROVIDER ORDERS Sodium Chloride 10 ml 09/14/20 01:00 09/28/20 00:48 Sodium Chloride Flush 0.9% 10 Ml Syringe IVP 10 ml 0100,0900,1700 ASHWIN Administration - Lab Result Fish Bone Diagrams: 09/28/20 05:30 09/28/20 05:30 - Additional Planning My Orders: My Active Orders 09/27/20 10:17 HYDROmorphone 1MG CARP [Dilaudid Inj Carp] 1 mg IVP Q2HR PRN 09/29/20 05:00 CBC - COMP BLD CT W/AUTO DIFF [HEME] DAILYLAB 09/30/20 05:00 CBC - COMP BLD CT W/AUTO DIFF [HEME] DAILYLAB 10/01/20 05:00 CBC - COMP BLD CT W/AUTO DIFF [HEME] DAILYLAB Subjective - Subjective Patient Reports: Other (Complained of worsening abdominal pain after taking MiraLAX last night. He did not sleep well as a result of his pain and is currently very somnolent.) Objective Vital Signs: Vital Signs - 24 hr 09/27/20 09/27/20 09/27/20 09:00 11:00 13:00 Temperature 37.2 C 37.0 C Heart Rate [ 91 75 Brachial] Respiratory 18 16 16 Rate Blood Pressure 150/91 H 139/84 H [Left Brachial artery] Blood Pressure [Right Radial artery] O2 Saturation 96 95 09/27/20 09/27/20 09/27/20 15:00 15:47 21:00 Temperature 36.9 C 37.1 C Heart Rate [ 65 70 Brachial] Respiratory 18 18 18 Rate Blood Pressure 139/74 H [Left Brachial artery] Blood Pressure 166/92 H [Right Radial artery] O2 Saturation 96 95 09/28/20 09/28/20 01:00 05:48 Temperature 37.2 C 36.9 C Heart Rate [ 70 74 Brachial] Respiratory 20 18 Rate Blood Pressure 170/84 H 161/85 H [Left Brachial artery] Blood Pressure [Right Radial artery] O2 Saturation 96 93 Oxygen O2 Source Room air I&O (Last 24 Hrs): Intake and Output Totals x24h 09/26/20 09/27/20 09/28/20 23:59 23:59 23:59 Intake Total 5272.950 5266.667 350 Output Total 2021 1698 915 Balance 3250.950 3568.667 -565 General: Alert, Oriented x3, Moderate distress, Severe distress HEENT: PERRLA, EOMI Neck: Supple, No JVD Neuro: Alert, Non Focal, Oriented Times 3 Cardiovascular: Regular rate Respiratory: Chest non-tender, No respiratory distress, Breath sounds nml Abdomen: Normal bowel sounds, Other (Tender to palpation Liquid output noted in ostomy bag) Skin: No rashes - Results Results: Laboratory Results WBC 16.1 x10^3/uL (4.8-10.8) H 09/28/20 05:30 RBC 4.13 10^6/uL (4.70-6.10) L 09/28/20 05:30 Hgb 12.3 g/dL (14.0-18.0) L 09/28/20 05:30 Hct 37.6 % (42.0-52.0) L 09/28/20 05:30 MCV 91.0 fL (80.0-94.0) 09/28/20 05:30 MCH 29.8 pg (27.0-31.0) 09/28/20 05:30 MCHC 32.7 g/dL (32.0-36.0) 09/28/20 05:30 RDW 12.1 % (12.0-15.0) 09/28/20 05:30 Plt Count 387 10^3/uL (130-450) 09/28/20 05:30 MPV 10.6 fL (7.4-11.4) 09/28/20 05:30 Neut # (Auto) 12.7 10^3/uL (1.5-6.6) H 09/28/20 05:30 Lymph # (Auto) 1.6 10^3/uL (1.5-3.5) 09/28/20 05:30 [place] # (Auto) 1.2 10^3/uL (0.0-1.0) H 09/28/20 05:30 Eos # (Auto) 0.3 10^3/uL (0.0-0.7) 09/28/20 05:30 Baso # (Auto) 0.1 10^3/uL (0.0-0.1) 09/28/20 05:30 Absolute Nucleated RBC 0.00 x10^3/uL 09/28/20 05:30 Total Counted 100 09/25/20 04:00 Band Neuts % (Manual) 9 % (0-10) 09/25/20 04:00 Abnorm Lymph % (Manual) 0 % 09/25/20 04:00 Nucleated RBC % 0.0 /100WBC 09/28/20 05:30 Neutrophils # (Manual) 24.6 10^3/uL (1.5-6.6) H 09/25/20 04:00 Lymphocytes # (Manual) 0.8 10^3/uL (1.5-3.5) L 09/25/20 04:00 Monocytes # (Manual) 0.8 10^3/uL (0.0-1.0) 09/25/20 04:00 Eosinophils # (Manual) 0.0 10^3/uL (0-0.7) 09/25/20 04:00 Basophils # (Manual) 0.0 10^3/uL (0-0.1) 09/25/20 04:00 Differential Comment MANUAL DIFFERENTIAL 09/25/20 04:00 WBC Morphology NORMAL APPEARANCE (NORMAL) 09/14/20 04:36 Platelet Estimate NORMAL (130-450,000) (NORMAL) 09/25/20 04:00 Platelet Morphology NORMAL APPEARANCE (NORMAL) 09/14/20 04:36 RBC Morph Micro Appear NORMAL APPEARANCE (NORMAL) 09/25/20 04:00 Sodium 140 mmol/L (135-145) 09/28/20 05:30 Potassium 4.3 mmol/L (3.5-5.0) 09/28/20 05:30 Chloride 102 mmol/L (101-111) 09/28/20 05:30 Carbon Dioxide 26 mmol/L (21-32) 09/28/20 05:30 Anion Gap 12.0 (6-13) 09/28/20 05:30 BUN 19 mg/dL (6-20) 09/28/20 05:30 Creatinine 0.9 mg/dL (0.6-1.2) 09/28/20 05:30 Estimated GFR (MDRD) 88 (>89) L 09/28/20 05:30 Glucose 122 mg/dL (70-100) H 09/28/20 05:30 POC Whole Bld Glucose 116 mg/dL (70 - 100) H 09/26/20 12:13 Lactic Acid 0.9 mmol/L (0.5-2.2) 09/13/20 21:54 Calcium 9.0 mg/dL (8.5-10.3) 09/28/20 05:30 Phosphorus 3.7 mg/dL (2.5-4.6) 09/28/20 05:30 Magnesium 1.8 mg/dL (1.7-2.8) 09/28/20 05:30 Total Bilirubin 0.4 mg/dL (0.2-1.0) 09/28/20 05:30 AST 15 IU/L (10-42) 09/28/20 05:30 ALT 14 IU/L (10-60) 09/28/20 05:30 Alkaline Phosphatase 52 IU/L (42-121) 09/28/20 05:30 C-Reactive Protein 5.9 mg/dL (0-1.0) H 09/23/20 05:09 Total Protein 5.5 g/dL (6.7-8.2) L 09/28/20 05:30 Albumin 2.5 g/dL (3.2-5.5) L 09/28/20 05:30 Globulin 3.0 g/dL (2.1-4.2) 09/28/20 05:30 Albumin/Globulin Ratio 0.8 (1.0-2.2) L 09/28/20 05:30 Prealbumin 14 mg/dL (18-45) L 09/28/20 05:30 Triglycerides 100 mg/dL (-149) 09/28/20 05:30 Lipase 25 U/L (22-51) 09/13/20 21:44 Nasal Adenovirus (PCR) NOT DETECTED 09/14/20 00:00 Nasal B. parapertussis DNA (PCR) NOT DETECTED 09/14/20 00:00 Nasal Coronavir 229E PCR NOT DETECTED 09/14/20 00:00 Nasal Coronavir HKU1 PCR NOT DETECTED 09/14/20 00:00 Nasal Coronavir NL63 PCR NOT DETECTED 09/14/20 00:00 Nasal Coronavir OC43 PCR NOT DETECTED 09/14/20 00:00 Nasal Enterovir/Rhinovir PCR NOT DETECTED 09/14/20 00:00 Nasal Influenza B PCR NOT DETECTED 09/14/20 00:00 Nasal Influenza A PCR NOT DETECTED 09/14/20 00:00 Nasal Parainfluen 1 PCR NOT DETECTED 09/14/20 00:00 Nasal Parainfluen 2 PCR NOT DETECTED 09/14/20 00:00 Nasal Parainfluen 3 PCR NOT DETECTED 09/14/20 00:00 Nasal Parainfluen 4 PCR NOT DETECTED 09/14/20 00:00 Nasal RSV (PCR) NOT DETECTED 09/14/20 00:00 Nasal Screen MRSA (PCR) NEGATIVE (NEGATIVE) 09/24/20 20:58 Nasal B.pertussis DNA PCR NOT DETECTED 09/14/20 00:00 Nasal C.pneumoniae (PCR) NOT DETECTED 09/14/20 00:00 Julio Human Metapneumo PCR NOT DETECTED 09/14/20 00:00 Nasal M.pneumoniae (PCR) NOT DETECTED 09/14/20 00:00 Nasal SARS-CoV-2 (PCR) NOT DETECTED 09/14/20 00:00 Stl C. diff Tox B Gene NEGATIVE (NEGATIVE) 09/15/20 11:04 - Procedures Procedures: Procedures COLONOSCOPY (05/29/13) ABX Reporting Has patient been on IV antibiotics over the past 48 hours?: Yes
[2020-09-28] MEDS: MULTIVITAMIN W/MINERALS TABLET PO SCH (08:24)
[2020-09-28] MEDS: ACETAMINOPHEN 325 MG TABLET PO PRN (08:25)
[2020-09-28] MEDS: DOCUSATE SODIUM 100 MG CAPSULE PO SCH ×2 (08:25→21:08)
[2020-09-28] MEDS: PREGABALIN 100 MG CAPSULE PO SCH ×2 (08:25→21:08)
[2020-09-28] MEDS: oxyCODONE 5 MG TABLET PO PRN (08:26)
[2020-09-28] MEDS: polyethylene glycoL 3350 17 GM PACKET PO SCH (08:27)
[2020-09-28] MEDS: hydrALAZINE INJ 20 MG/ML VIAL IVP PRN (09:39)
[2020-09-28] MEDS: ENOXAPARIN 40 MG/0.4 ML SYRINGE SUBQ SCH (09:50)
[2020-09-28] MEDS: PROCHLORPERAZINE 10 MG/2 ML VIAL IVP PRN (10:22)
--- NOTE | 2020-09-28 13:08 | PROVIDER PROGRESS NOTE ---
Subjective - General Admit Date: 09/13/20 Procedure Date: 09/24/20 Post Op Days: 4 Procedure Performed: Laparotomy - Review of Systems General: positive: Fatigue - Other Other Information/Narrative: More cramping over night with Miralax. Otherwise ok. Objective - Patient Data Vital Signs: Vital Signs x48h Temp Pulse Resp BP BP BP Pulse Ox 09/28/20 10:56 37.1 C 72 20 162/85 H 09/28/20 10:30 156/88 H 09/28/20 10:20 174/79 H 09/28/20 10:05 165/83 H 09/28/20 10:00 148/84 H 09/28/20 09:55 158/78 H 09/28/20 09:47 156/84 H 09/28/20 09:39 177/88 H 09/28/20 09:00 177/88 H 09/28/20 08:35 81 171/87 H 09/28/20 07:49 37.4 C 74 18 173/91 H 96 09/28/20 05:48 36.9 C 74 18 161/85 H 93 Weight: Weight 09/26/20 09/27/20 09/28/20 23:59 23:59 23:59 Weight (kg) 92 kg 91 kg Intake & Output: Intake and Output Totals x24h 09/26/20 09/27/20 09/28/20 23:59 23:59 23:59 Intake Total 5272.950 5266.667 710 Output Total 2021 1698 1665 Balance 3250.950 3568.666 -642 - Lab Results Lab Results: 09/28/20 05:30 09/28/20 05:30 Other Lab Results: Lab Results x24hrs 09/28/20 09/28/20 Range/Units 05:30 05:30 WBC 16.1 H (4.8-10.8) x10^3/uL RBC 4.13 L (4.70-6.10) 10^6/uL Hgb 12.3 L (14.0-18.0) g/dL Hct 37.6 L (42.0-52.0) % MCV 91.0 (80.0-94.0) fL MCH 29.8 (27.0-31.0) pg MCHC 32.7 (32.0-36.0) g/dL RDW 12.1 (12.0-15.0) % Plt Count 387 (130-450) 10^3/uL MPV 10.6 (7.4-11.4) fL Neut # (Auto) 12.7 H (1.5-6.6) 10^3/uL Lymph # (Auto) 1.6 (1.5-3.5) 10^3/uL [place] # (Auto) 1.2 H (0.0-1.0) 10^3/uL Eos # (Auto) 0.3 (0.0-0.7) 10^3/uL Baso # (Auto) 0.1 (0.0-0.1) 10^3/uL Absolute Nucleated RBC 0.00 x10^3/uL Nucleated RBC % 0.0 /100WBC Sodium 140 (135-145) mmol/L Potassium 4.3 (3.5-5.0) mmol/L Chloride 102 (101-111) mmol/L Carbon Dioxide 26 (21-32) mmol/L Anion Gap 12.0 (6-13) BUN 19 (6-20) mg/dL Creatinine 0.9 (0.6-1.2) mg/dL Estimated GFR (MDRD) 88 L (>89) Glucose 122 H (70-100) mg/dL Calcium 9.0 (8.5-10.3) mg/dL Phosphorus 3.7 (2.5-4.6) mg/dL Magnesium 1.8 (1.7-2.8) mg/dL Total Bilirubin 0.4 (0.2-1.0) mg/dL AST 15 (10-42) IU/L ALT 14 (10-60) IU/L Alkaline Phosphatase 52 (42-121) IU/L Total Protein 5.5 L (6.7-8.2) g/dL Albumin 2.5 L (3.2-5.5) g/dL Globulin 3.0 (2.1-4.2) g/dL Albumin/Globulin Ratio 0.8 L (1.0-2.2) Prealbumin 14 L (18-45) mg/dL Triglycerides 100 ( - 149) mg/dL - Current Medications Current Medications: Current Medications Generic Name Dose Route Start Last Admin Trade Name Freq PRN Reason Stop Dose Admin Acetaminophen 650 mg 09/13/20 22:36 09/28/20 08:25 Acetaminophen 325 Mg Tablet PO 650 mg Q4HR PRN Administration Pain 1 to 4 Docusate Sodium 100 mg 09/24/20 21:00 09/28/20 08:25 Docusate Sodium 100 Mg Capsule PO 100 mg BID ASHWIN Administration Enoxaparin Sodium 40 mg 09/14/20 09:00 09/28/20 09:50 Enoxaparin 40 Mg/0.4 Ml Syringe SUBQ 40 mg DAILY ASHWIN Administration Hydralazine HCl 10 mg 09/17/20 11:31 09/28/20 09:39 Hydralazine Inj 20 Mg/Ml Vial IVP 10 mg Q4H PRN Administration PRN if SBP>170 Hydromorphone HCl 1 mg 09/27/20 10:17 09/28/20 01:02 Hydromorphone 1 Mg/Ml Carpuject IVP 1 mg Q2HR PRN Administration PAIN Piperacillin Sod/Tazobactam 100 mls @ 25 mls/hr 09/17/20 17:00 09/28/20 09:48 Sod 3.375 gm/ Sodium Chloride IV 25 mls/hr Q8H ASHWIN Administration Fat Emulsion Intravenous 250 mls @ 21 mls/hr 09/23/20 19:00 09/28/20 07:15 Intralipid 20% IV Infused TPN/PPN ASHWIN Infusion TRACE ELEMENTS 1 ml/ Amino Ac/ 2,001 mls @ 83.375 mls/hr 09/24/20 19:00 09/27 19:12 Electrol/Dextrose/Calcium IV 83.4 mls/hr TPN/PPN ASHWIN Administration Sodium Chloride 500 mls @ 20 mls/hr 09/25/20 09:34 09/27/20 14:42 Normal Saline 0.9% IV Infused Q24H PRN Infusion TKO RATE Ketorolac Tromethamine 15 mg 09/25/20 00:00 09/28/20 12:35 Ketorolac 30 Mg/Ml Vial IVP 09/30/20 00:00 15 mg Q6HR ASHWIN Administration Multivitamins/Minerals 1 tab 09/23/20 16:00 09/28/20 08:24 Multivitamin W/Minerals Tablet PO 1 tab DAILYWM ASHWIN Administration Oxycodone HCl 5 mg 09/13/20 22:36 09/28/20 08:26 Oxycodone 5 Mg Tablet PO 5 mg Q4HR PRN Administration Pain 5 to 7 Pantoprazole Sodium 40 mg 09/14/20 07:00 09/28/20 06:17 Pantoprazole 40 Mg Tablet PO 40 mg QDAC ASHWIN Administration Polyethylene Glycol 17 gm 09/24/20 21:00 09/28/20 08:27 Polyethylene Glycol 3350 17 Gm Packet PO Not Given BID ASHWIN Pregabalin 100 mg 09/24/20 21:00 09/28/20 08:25 Pregabalin 100 Mg Capsule PO 100 mg BID ASHWIN Administration Prochlorperazine Edisylate 10 mg 09/26/20 17:04 09/28/20 10:22 Prochlorperazine 10 Mg/2 Ml Vial IVP 10 mg Q6HR PRN Administration Nausea / Vomiting Sodium Chloride 10 ml 09/13/20 22:36 09/28/20 10:26 Sodium Chloride Flush 0.9% 10 Ml Syringe IVP 10 ml PRN PRN Administration NEEDED PER PROVIDER ORDERS Sodium Chloride 10 ml 09/14/20 01:00 09/28/20 09:40 Sodium Chloride Flush 0.9% 10 Ml Syringe IVP 10 ml 0100,0900,1700 ASHWIN Administration Impression/Plan - Problem List Problem List: Will hold miralax and treat with lactulose. Slow improvement
[2020-09-28] MEDS: TRACE ELEMENTS IV SCH ×2 (19:43)
[2020-09-28] MEDS: TPN IV SCH ×2 (19:43)
[2020-09-28] MEDS: FAT EMULSION 20% 250 ML IV SCH (19:43)
[2020-09-29] MEDS: SODIUM CHLORIDE FLUSH 0.9% 10 ML SYRINGE IVP PRN ×3 (05:00→06:07)
[2020-09-29 05:36] LABS: BASOPHILS # (AUTO) 0.1 10^3/uL (0.0-0.1); BASOPHILS % (AUTO) 0.5 %; EOSINOPHILS # (AUTO) 0.3 10^3/uL (0.0-0.7); EOSINOPHILS % (AUTO) 2.2 %; HCT - HEMATOCRIT 40.3 % (42.0-52.0); HGB - HEMOGLOBIN 12.8 g/dL (14.0-18.0); LYMPHOCYTES # (AUTO) 1.6 10^3/uL (1.5-3.5); LYMPHOCYTES % (AUTO) 10.7 %; MEAN CORPUSCULAR HGB CONC 31.8 g/dL (32.0-36.0); MEAN CORPUSCULAR VOLUME 91.2 fL (80.0-94.0); MONOCYTES # (AUTO) 1.2 10^3/uL (0.0-1.0); MONOCYTES % (AUTO) 7.6 %; NEUTROPHILS # (AUTO) 11.9 10^3/uL (1.5-6.6); NEUTROPHILS % (AUTO) 77.9 %; PLT - PLATELET COUNT 448 10^3/uL (130-450); RED BLOOD COUNT 4.42 10^6/uL (4.70-6.10); RED CELL DISTRIBUTION WIDTH 12.1 % (12.0-15.0); WHITE BLOOD COUNT 15.2 x10^3/uL (4.8-10.8)
[2020-09-29] MEDS: PANTOPRAZOLE 40 MG TABLET PO SCH (05:55)
[2020-09-29] MEDS: KETOROLAC 30 MG/ML VIAL IVP SCH ×3 (05:56→17:31)
[2020-09-29] MEDS: PROCHLORPERAZINE 10 MG/2 ML VIAL IVP PRN (05:56)
--- NOTE | 2020-09-29 07:19 | PROVIDER PROGRESS NOTE ---
Assessment/Plan - Problem List (1) Diverticulitis Assessment/Plan: Perforation and abscess. Patient is postop day #5 of surgery. Colostomy appreciable. Stoma currently appears reddish-pink. Greenish liquid output in the colostomy bag Patient's white blood cell count today improved from 16 to 15 We will continue Zosyn. Plan is to continue IV antibiotics until postop day # 10. Vancomycin and Diflucan discontinued [employer] Dilaudid pump discontinued. Patient has Tylenol, oxycodone and morphine ordered as needed for pain. Pregabalin and Toradol added as needed MiraLAX discontinued. lactulose ordered. Reglan added He is receiving TPN. Accu-Cheks q. AC and HS. Sliding scale insulin ordered. Continue clear liquid diet. General surgery also following. If patient's abdominal pain persist will consider doing a repeat CT abdomen pelvis tomorrow 09/30/20 Patient and educated regarding care of colostomy/stoma site yesterday Anticipated discharge in 2 to 3 days - Current Meds Current Meds: Current Medications Generic Name Dose Route Start Last Admin Trade Name Freq PRN Reason Stop Dose Admin Acetaminophen 650 mg 09/13/20 22:36 09/28/20 08:25 Acetaminophen 325 Mg Tablet PO 650 mg Q4HR PRN Administration Pain 1 to 4 Docusate Sodium 100 mg 09/24/20 21:00 09/28/20 21:08 Docusate Sodium 100 Mg Capsule PO 100 mg BID ASHWIN Administration Enoxaparin Sodium 40 mg 09/14/20 09:00 09/28/20 09:50 Enoxaparin 40 Mg/0.4 Ml Syringe SUBQ 40 mg DAILY ASHWIN Administration Hydralazine HCl 10 mg 09/17/20 11:31 09/28/20 09:39 Hydralazine Inj 20 Mg/Ml Vial IVP 10 mg Q4H PRN Administration PRN if SBP>170 Hydromorphone HCl 1 mg 09/27/20 10:17 09/28/20 01:02 Hydromorphone 1 Mg/Ml Carpuject IVP 1 mg Q2HR PRN Administration PAIN Piperacillin Sod/Tazobactam 100 mls @ 25 mls/hr 09/17/20 17:00 09/29/20 04:08 Sod 3.375 gm/ Sodium Chloride IV Infused Q8H ASHWIN Infusion Fat Emulsion Intravenous 250 mls @ 21 mls/hr 09/23/20 19:00 09/28/20 19:43 Intralipid 20% IV 21 mls/hr TPN/PPN ASHWIN Administration TRACE ELEMENTS 1 ml/ Amino Ac/ 2,001 mls @ 83.375 mls/hr 09/24/20 19:00 09/28/20 19:43 Electrol/Dextrose/Calcium IV 83.4 mls/hr TPN/PPN ASHWIN Administration Sodium Chloride 500 mls @ 20 mls/hr 09/25/20 09:34 09/27/20 14:42 Normal Saline 0.9% IV Infused Q24H PRN Infusion TKO RATE Ketorolac Tromethamine 15 mg 09/25/20 00:00 09/29/20 05:56 Ketorolac 30 Mg/Ml Vial IVP 09/30/20 00:00 15 mg Q6HR ASHWIN Administration Multivitamins/Minerals 1 tab 09/23/20 16:00 09/28/20 08:24 Multivitamin W/Minerals Tablet PO 1 tab DAILYWM [facility] Administration Oxycodone HCl 5 mg 09/13/20 22:36 09/28/20 08:26 Oxycodone 5 Mg Tablet PO 5 mg Q4HR PRN Administration Pain 5 to 7 Pantoprazole Sodium 40 mg 09/14/20 07:00 09/29/20 05:55 Pantoprazole 40 Mg Tablet PO Not Given QDAC [facility] Pregabalin 100 mg 09/24/20 21:00 09/28/20 21:08 Pregabalin 100 Mg Capsule PO 100 mg BID ASWHIN Administration Prochlorperazine Edisylate 10 mg 09/26/20 17:04 09/29/20 05:56 Prochlorperazine 10 Mg/2 Ml Vial IVP 10 mg Q6HR PRN Administration Nausea / Vomiting Sodium Chloride 10 ml 09/13/20 22:36 09/29/20 06:07 Sodium Chloride Flush 0.9% 10 Ml Syringe IVP 10 ml PRN PRN Administration NEEDED PER PROVIDER ORDERS Sodium Chloride 10 ml 09/14/20 01:00 09/29/20 00:00 Sodium Chloride Flush 0.9% 10 Ml Syringe IVP 10 ml 0100,0900,1700 [facility] Administration - Lab Result Fish Bone Diagrams: 09/29/20 05:10 09/28/20 05:30 - Additional Planning My Orders: My Active Orders 09/30/20 05:00 CBC - COMP BLD CT W/AUTO DIFF [HEME] DAILYLAB 10/01/20 05:00 CBC - COMP BLD CT W/AUTO DIFF [HEME] DAILYLAB Subjective - Subjective Patient Reports: Feeling Better, Other (Abdominal pain was significantly better today. He was able to ambulate around the nursing floor without difficulty. A small amount of greenish liquid output was noted in colostomy bag. His nausea is better however he still reports feeling somewhat bloated. Testicular swelling still present.) Objective Vital Signs: Vital Signs - 24 hr 09/28/20 09/28/20 09/28/20 07:49 08:35 09:00 Temperature 37.4 C Heart Rate [ 74 81 Brachial] Heart Rate [ Monitoring electrodes] Respiratory 18 Rate Blood Pressure Blood Pressure 173/91 H 177/88 H [Left Brachial artery] Blood Pressure 171/87 H [Right Radial artery] O2 Saturation 96 09/28/20 09/28/20 09/28/20 09:39 09:47 09:55 Temperature Heart Rate [ Brachial] Heart Rate [ Monitoring electrodes] Respiratory Rate Blood Pressure 177/88 H Blood Pressure 156/84 H 158/78 H [Left Brachial artery] Blood Pressure [Right Radial artery] O2 Saturation 09/28/20 09/28/20 09/28/20 10:00 10:05 10:20 Temperature Heart Rate [ Brachial] Heart Rate [ Monitoring electrodes] Respiratory Rate Blood Pressure 165/83 H Blood Pressure 148/84 H 174/79 H [Left Brachial artery] Blood Pressure [Right Radial artery] O2 Saturation 09/28/20 09/28/20 09/28/20 10:30 10:56 13:19 Temperature 37.1 C 37.3 C Heart Rate [ 72 77 Brachial] Heart Rate [ Monitoring electrodes] Respiratory 20 18 Rate Blood Pressure Blood Pressure 156/88 H 162/85 H 169/83 H [Left Brachial artery] Blood Pressure [Right Radial artery] O2 Saturation 09/28/20 09/28/20 09/28/20 14:25 16:12 21:00 Temperature 37.3 C 37.5 C 37.3 C Heart Rate [ 78 73 Brachial] Heart Rate [ 84 Monitoring electrodes] Respiratory 16 18 18 Rate Blood Pressure Blood Pressure 144/89 H 143/83 H 148/84 H [Left Brachial artery] Blood Pressure [Right Radial artery] O2 Saturation 97 96 97 09/28/20 23:56 Temperature 37.2 C Heart Rate [ 73 Brachial] Heart Rate [ Monitoring electrodes] Respiratory 18 Rate Blood Pressure Blood Pressure 156/78 H [Left Brachial artery] Blood Pressure [Right Radial artery] O2 Saturation 95 Oxygen O2 Source Room air I&O (Last 24 Hrs): Intake and Output Totals x24h 09/27/20 09/28/20 09/29/20 23:59 23:59 23:59 Intake Total 5266.667 3211 100 Output Total 1698 3098 500 Balance 3568.667 113 -400 General: Alert, Oriented x3, Mild distress, Moderate distress HEENT: PERRLA, EOMI Neck: Supple, No JVD Neuro: Alert, Non Focal, Oriented Times 3 Cardiovascular: Regular rate, Normal S1, Normal S2 Respiratory: Chest non-tender, No respiratory distress, Breath sounds nml Abdomen: Normal bowel sounds, Soft, Other (Mild to moderate tenderness to palpation) Genitourinary: Other (scrotal edema noted) Extremities: No clubbing, No cyanosis, No edema - Results Results: Laboratory Results WBC 15.2 x10^3/uL (4.8-10.8) H 09/29/20 05:10 RBC 4.42 10^6/uL (4.70-6.10) L 09/29/20 05:10 Hgb 12.8 g/dL (14.0-18.0) L 09/29/20 05:10 Hct 40.3 % (42.0-52.0) L 09/29/20 05:10 MCV 91.2 fL (80.0-94.0) 09/29/20 05:10 MCH 29.0 pg (27.0-31.0) 09/29/20 05:10 MCHC 31.8 g/dL (32.0-36.0) L 09/29/20 05:10 RDW 12.1 % (12.0-15.0) 09/29/20 05:10 Plt Count 448 10^3/uL (130-450) 09/29/20 05:10 MPV 11.0 fL (7.4-11.4) 09/29/20 05:10 Neut # (Auto) 11.9 10^3/uL (1.5-6.6) H 09/29/20 05:10 Lymph # (Auto) 1.6 10^3/uL (1.5-3.5) 09/29/20 05:10 [place] # (Auto) 1.2 10^3/uL (0.0-1.0) H 09/29/20 05:10 Eos # (Auto) 0.3 10^3/uL (0.0-0.7) 09/29/20 05:10 Baso # (Auto) 0.1 10^3/uL (0.0-0.1) 09/29/20 05:10 Absolute Nucleated RBC 0.00 x10^3/uL 09/29/20 05:10 Total Counted 100 09/25/20 04:00 Band Neuts % (Manual) 9 % (0-10) 09/25/20 04:00 Abnorm Lymph % (Manual) 0 % 09/25/20 04:00 Nucleated RBC % 0.0 /100WBC 09/29/20 05:10 Neutrophils # (Manual) 24.6 10^3/uL (1.5-6.6) H 09/25/20 04:00 Lymphocytes # (Manual) 0.8 10^3/uL (1.5-3.5) L 09/25/20 04:00 Monocytes # (Manual) 0.8 10^3/uL (0.0-1.0) 09/25/20 04:00 Eosinophils # (Manual) 0.0 10^3/uL (0-0.7) 09/25/20 04:00 Basophils # (Manual) 0.0 10^3/uL (0-0.1) 09/25/20 04:00 Differential Comment MANUAL DIFFERENTIAL 09/25/20 04:00 WBC Morphology NORMAL APPEARANCE (NORMAL) 09/14/20 04:36 Platelet Estimate NORMAL (130-450,000) (NORMAL) 09/25/20 04:00 Platelet Morphology NORMAL APPEARANCE (NORMAL) 09/14/20 04:36 RBC Morph Micro Appear NORMAL APPEARANCE (NORMAL) 09/25/20 04:00 Sodium 140 mmol/L (135-145) 09/28/20 05:30 Potassium 4.3 mmol/L (3.5-5.0) 09/28/20 05:30 Chloride 102 mmol/L (101-111) 09/28/20 05:30 Carbon Dioxide 26 mmol/L (21-32) 09/28/20 05:30 Anion Gap 12.0 (6-13) 09/28/20 05:30 BUN 19 mg/dL (6-20) 09/28/20 05:30 Creatinine 0.9 mg/dL (0.6-1.2) 09/28/20 05:30 Estimated GFR (MDRD) 88 (>89) L 09/28/20 05:30 Glucose 122 mg/dL (70-100) H 09/28/20 05:30 POC Whole Bld Glucose 116 mg/dL (70 - 100) H 09/26/20 12:13 Lactic Acid 0.9 mmol/L (0.5-2.2) 09/13/20 21:54 Calcium 9.0 mg/dL (8.5-10.3) 09/28/20 05:30 Phosphorus 3.7 mg/dL (2.5-4.6) 09/28/20 05:30 Magnesium 1.8 mg/dL (1.7-2.8) 09/28/20 05:30 Total Bilirubin 0.4 mg/dL (0.2-1.0) 09/28/20 05:30 AST 15 IU/L (10-42) 09/28/20 05:30 ALT 14 IU/L (10-60) 09/28/20 05:30 Alkaline Phosphatase 52 IU/L (42-121) 09/28/20 05:30 C-Reactive Protein 5.9 mg/dL (0-1.0) H 09/23/20 05:09 Total Protein 5.5 g/dL (6.7-8.2) L 09/28/20 05:30 Albumin 2.5 g/dL (3.2-5.5) L 09/28/20 05:30 Globulin 3.0 g/dL (2.1-4.2) 09/28/20 05:30 Albumin/Globulin Ratio 0.8 (1.0-2.2) L 09/28/20 05:30 Prealbumin 14 mg/dL (18-45) L 09/28/20 05:30 Triglycerides 100 mg/dL (-149) 09/28/20 05:30 Lipase 25 U/L (22-51) 09/13/20 21:44 Nasal Adenovirus (PCR) NOT DETECTED 09/14/20 00:00 Nasal B. parapertussis DNA (PCR) NOT DETECTED 09/14/20 00:00 Nasal Coronavir 229E PCR NOT DETECTED 09/14/20 00:00 Nasal Coronavir HKU1 PCR NOT DETECTED 09/14/20 00:00 Nasal Coronavir NL63 PCR NOT DETECTED 09/14/20 00:00 Nasal Coronavir OC43 PCR NOT DETECTED 09/14/20 00:00 Nasal Enterovir/Rhinovir PCR NOT DETECTED 09/14/20 00:00 Nasal Influenza B PCR NOT DETECTED 09/14/20 00:00 Nasal Influenza A PCR NOT DETECTED 09/14/20 00:00 Nasal Parainfluen 1 PCR NOT DETECTED 09/14/20 00:00 Nasal Parainfluen 2 PCR NOT DETECTED 09/14/20 00:00 Nasal Parainfluen 3 PCR NOT DETECTED 09/14/20 00:00 Nasal Parainfluen 4 PCR NOT DETECTED 09/14/20 00:00 Nasal RSV (PCR) NOT DETECTED 09/14/20 00:00 Nasal Screen MRSA (PCR) NEGATIVE (NEGATIVE) 09/24/20 20:58 Nasal B.pertussis DNA PCR NOT DETECTED 09/14/20 00:00 Nasal C.pneumoniae (PCR) NOT DETECTED 09/14/20 00:00 Julio Human Metapneumo PCR NOT DETECTED 09/14/20 00:00 Nasal M.pneumoniae (PCR) NOT DETECTED 09/14/20 00:00 Nasal SARS-CoV-2 (PCR) NOT DETECTED 09/14/20 00:00 Stl C. diff Tox B Gene NEGATIVE (NEGATIVE) 09/15/20 11:04 - Procedures Procedures: Procedures COLONOSCOPY (05/29/13) ABX Reporting Has patient been on IV antibiotics over the past 48 hours?: Yes
[2020-09-29] MEDS ORDERED: LACTULOSE 10 GM /15 ML UDC PO SCH (09:00)
--- NOTE | 2020-09-29 09:22 | PROVIDER PROGRESS NOTE ---
Subjective - General Admit Date: 09/13/20 Procedure Date: 09/24/20 Post Op Days: 5 Procedure Performed: Laparotomy - Review of Systems Drain Type: Slick in the left upper quadrant Drain Output Description: serous / clear General: positive: Fatigue - Other Other Information/Narrative: Nauseated and bloated this morning. Doesn't feel he is more bloated than yesterday but vomited about 6 AM and is anorexic currently. Pain is controlled. Cramping improved with holding miralax Objective - Patient Data Weight: Weight 09/27/20 09/28/20 09/29/20 23:59 23:59 23:59 Weight (kg) 91 kg Intake & Output: Intake and Output Totals x24h 09/27/20 09/28/20 09/29/20 23:59 23:59 23:59 Intake Total 5266.667 3211 100 Output Total 1698 3098 500 Balance 3568.667 113 -400 - Lab Results Lab Results: 09/29/20 05:10 09/28/20 05:30 Other Lab Results: Lab Results x24hrs 09/29/20 Range/Units 05:10 WBC 15.2 H (4.8-10.8) x10^3/uL RBC 4.42 L (4.70-6.10) 10^6/uL Hgb 12.8 L (14.0-18.0) g/dL Hct 40.3 L (42.0-52.0) % MCV 91.2 (80.0-94.0) fL MCH 29.0 (27.0-31.0) pg MCHC 31.8 L (32.0-36.0) g/dL RDW 12.1 (12.0-15.0) % Plt Count 448 (130-450) 10^3/uL MPV 11.0 (7.4-11.4) fL Neut # (Auto) 11.9 H (1.5-6.6) 10^3/uL Lymph # (Auto) 1.6 (1.5-3.5) 10^3/uL [place] # (Auto) 1.2 H (0.0-1.0) 10^3/uL Eos # (Auto) 0.3 (0.0-0.7) 10^3/uL Baso # (Auto) 0.1 (0.0-0.1) 10^3/uL Absolute Nucleated RBC 0.00 x10^3/uL Nucleated RBC % 0.0 /100WBC - Current Medications Current Medications: Current Medications Generic Name Dose Route Start Last Admin Trade Name Freq PRN Reason Stop Dose Admin Acetaminophen 650 mg 09/13/20 22:36 09/28/20 08:25 Acetaminophen 325 Mg Tablet PO 650 mg Q4HR PRN Administration Pain 1 to 4 Docusate Sodium 100 mg 09/24/20 21:00 09/28/20 21:08 Docusate Sodium 100 Mg Capsule PO 100 mg BID ASHWIN Administration Enoxaparin Sodium 40 mg 09/14/20 09:00 09/28/20 09:50 Enoxaparin 40 Mg/0.4 Ml Syringe SUBQ 40 mg DAILY ASHWIN Administration Hydralazine HCl 10 mg 09/17/20 11:31 09/28/20 09:39 Hydralazine Inj 20 Mg/Ml Vial IVP 10 mg Q4H PRN Administration PRN if SBP>170 Hydromorphone HCl 1 mg 09/27/20 10:17 09/28/20 01:02 Hydromorphone 1 Mg/Ml Carpuject IVP 1 mg Q2HR PRN Administration PAIN Piperacillin Sod/Tazobactam 100 mls @ 25 mls/hr 09/17/20 17:00 09/29/20 04:08 Sod 3.375 gm/ Sodium Chloride IV Infused Q8H ASHWIN Infusion Fat Emulsion Intravenous 250 mls @ 21 mls/hr 09/23/20 19:00 09/28/20 19:43 Intralipid 20% IV 21 mls/hr TPN/PPN ASHWIN Administration TRACE ELEMENTS 1 ml/ Amino Ac/ 2,001 mls @ 83.375 mls/hr 09/24/20 19:00 09/28/20 19:43 Electrol/Dextrose/Calcium IV 83.4 mls/hr TPN/PPN ASHWIN Administration Sodium Chloride 500 mls @ 20 mls/hr 09/25/20 09:34 09/27/20 14:42 Normal Saline 0.9% IV Infused Q24H PRN Infusion TKO RATE Ketorolac Tromethamine 15 mg 09/25/20 00:00 09/29/20 05:56 Ketorolac 30 Mg/Ml Vial IVP 02/15/21 00:00 15 mg Q6HR ASHWIN Administration Multivitamins/Minerals 1 tab 09/23/20 16:00 09/28/20 08:24 Multivitamin W/Minerals Tablet PO 1 tab DAILYWM ASHWIN Administration Oxycodone HCl 5 mg 09/13/20 22:36 09/28/20 08:26 Oxycodone 5 Mg Tablet PO 5 mg Q4HR PRN Administration Pain 5 to 7 Pantoprazole Sodium 40 mg 09/14/20 07:00 09/29/20 05:55 Pantoprazole 40 Mg Tablet PO Not Given QDAC ASHWIN Pregabalin 100 mg 09/24/20 21:00 09/28/20 21:08 Pregabalin 100 Mg Capsule PO 100 mg BID ASHWIN Administration Prochlorperazine Edisylate 10 mg 09/26/20 17:04 09/29/20 05:56 Prochlorperazine 10 Mg/2 Ml Vial IVP 10 mg Q6HR PRN Administration Nausea / Vomiting Sodium Chloride 10 ml 09/13/20 22:36 09/29/20 06:07 Sodium Chloride Flush 0.9% 10 Ml Syringe IVP 10 ml PRN PRN Administration NEEDED PER PROVIDER ORDERS Sodium Chloride 10 ml 09/14/20 01:00 09/29/20 00:00 Sodium Chloride Flush 0.9% 10 Ml Syringe IVP 10 ml 0100,0900,1700 [facility] Administration - Physical Exam Wound/Incisions: positive: Healing well, Other (Ostomy pink and viable with thin green succus in the bag.) General Appearance: positive: Mild distress Eyes Bilateral: positive: Normal inspection ENT: positive: ENT inspection nml Respiratory: positive: Chest non-tender Cardiovascular: positive: Regular rate & rhythm Abdomen: positive: Other (Distended any mildly tympanic. Very few bowel sounds. Wounds are clean and dry) Neurologic/Psychiatric: positive: Oriented x3 ABX Reporting Has patient been on IV antibiotics over the past 48 hours?: Yes Impression/Plan - Problem List Problem List: 1. Post operative ileus - will hold most PO meds today including docusate and miralax 2. Add Reglan and zofran 3. Continue Zosyn 4. Continue TPN 5. Recheck labs in the AM.
[2020-09-29] MEDS: DOCUSATE SODIUM 100 MG CAPSULE PO SCH (09:23)
[2020-09-29] MEDS: PREGABALIN 100 MG CAPSULE PO SCH ×2 (09:26→22:22)
[2020-09-29] MEDS: ENOXAPARIN 40 MG/0.4 ML SYRINGE SUBQ SCH (09:26)
[2020-09-29] MEDS: PIPERACILLIN/TAZOBACTAM 3.375 GM in SODIUM CHLORIDE 0.9% MINIBAG 100 ML IV SCH ×4 (09:26→17:25)
[2020-09-29] MEDS: SODIUM CHLORIDE FLUSH 0.9% 10 ML SYRINGE IVP SCH ×3 (09:26→17:25)
[2020-09-29] MEDS: MULTIVITAMIN W/MINERALS TABLET PO SCH (09:38)
[2020-09-29] MEDS: ACETAMINOPHEN 325 MG TABLET PO PRN (09:38)
[2020-09-29] MEDS: METOCLOPRAMIDE 10 MG/2 ML VIAL IVP PRN (19:00)
[2020-09-29] MEDS: TRACE ELEMENTS IV SCH ×2 (19:23)
[2020-09-29] MEDS: TPN IV SCH ×2 (19:23)
[2020-09-29] MEDS: FAT EMULSION 20% 250 ML IV SCH (19:24)
[2020-09-29] MEDS: INSULIN REGULAR HUMAN 300 UNIT/3 ML VIAL SUBQ SCH (19:27)
[2020-09-30] MEDS: KETOROLAC 30 MG/ML VIAL IVP SCH (00:12)
[2020-09-30] MEDS: INSULIN REGULAR HUMAN 300 UNIT/3 ML VIAL SUBQ SCH ×4 (00:12→17:44)
[2020-09-30] MEDS: SODIUM CHLORIDE FLUSH 0.9% 10 ML SYRINGE IVP PRN (00:15)
[2020-09-30] MEDS: SODIUM CHLORIDE FLUSH 0.9% 10 ML SYRINGE IVP SCH ×3 (00:15→17:44)
[2020-09-30] MEDS: PIPERACILLIN/TAZOBACTAM 3.375 GM in SODIUM CHLORIDE 0.9% MINIBAG 100 ML IV SCH ×3 (00:30→17:10)
[2020-09-30] MEDS: hydrALAZINE INJ 20 MG/ML VIAL IVP PRN ×3 (00:32→20:27)
[2020-09-30] MEDS: METOCLOPRAMIDE 10 MG/2 ML VIAL IVP PRN ×2 (01:54→09:03)
[2020-09-30] MEDS: ACETAMINOPHEN 1,000 MG/100 ML 100 ML IV PRN ×3 (02:30→22:17)
[2020-09-30] MEDS: ONDANSETRON 4 MG/2 ML VIAL IVP PRN (02:35)
[2020-09-30 05:49] LABS: BASOPHILS # (AUTO) 0.1 10^3/uL (0.0-0.1); BASOPHILS % (AUTO) 0.5 %; EOSINOPHILS # (AUTO) 0.3 10^3/uL (0.0-0.7); EOSINOPHILS % (AUTO) 2.2 %; HCT - HEMATOCRIT 36.7 % (42.0-52.0); LYMPHOCYTES # (AUTO) 1.8 10^3/uL (1.5-3.5); LYMPHOCYTES % (AUTO) 11.6 %; MEAN CORPUSCULAR HEMOGLOBIN 29.7 pg (27.0-31.0); MEAN CORPUSCULAR HGB CONC 32.7 g/dL (32.0-36.0); MEAN CORPUSCULAR VOLUME 90.8 fL (80.0-94.0); MEAN PLATELET VOLUME 10.9 fL (7.4-11.4); MONOCYTES # (AUTO) 1.2 10^3/uL (0.0-1.0); MONOCYTES % (AUTO) 7.5 %; NEUTROPHILS % (AUTO) 77.3 %; PLT - PLATELET COUNT 392 10^3/uL (130-450); RED BLOOD COUNT 4.04 10^6/uL (4.70-6.10); WHITE BLOOD COUNT 15.5 x10^3/uL (4.8-10.8)
[2020-09-30 06:01] LABS: ALBUMIN 2.8 g/dL (3.2-5.5); ALBUMIN/GLOBULIN RATIO 0.7 (1.0-2.2); ALKALINE PHOSPHATASE 77 IU/L (42-121); ALT ALANINE AMINOTRANSFERASE 39 IU/L (10-60); AST ASPARTATE AMINOTRANSFERASE 37 IU/L (10-42); BILIRUBIN,TOTAL 0.7 mg/dL (0.2-1.0); BUN - BLOOD UREA NITROGEN 23 mg/dL (6-20); CALCIUM 9.3 mg/dL (8.5-10.3); CARBON DIOXIDE - CO2 25 mmol/L (21-32); CHLORIDE 103 mmol/L (101-111); GFR - MDRD 78 (>89); GLUCOSE 139 mg/dL (70-100); IONIZED CALCIUM IF INDICATED NO; POTASSIUM 3.8 mmol/L (3.5-5.0); SODIUM 140 mmol/L (135-145); TOTAL PROTEIN 6.7 g/dL (6.7-8.2)
[2020-09-30] MEDS: PANTOPRAZOLE 40 MG TABLET PO SCH (06:51)
[2020-09-30] MEDS: PREGABALIN 100 MG CAPSULE PO SCH ×2 (08:40→20:21)
[2020-09-30] MEDS: ENOXAPARIN 40 MG/0.4 ML SYRINGE SUBQ SCH (08:41)
[2020-09-30] MEDS: MULTIVITAMIN W/MINERALS TABLET PO SCH (08:41)
[2020-09-30] MEDS ORDERED: IOVERSOL 320 100 ML VIAL IVP ONE ×2 (10:51→13:02)
--- NOTE | 2020-09-30 12:09 | CT Report ---
PROCEDURE: Abdomen/Pelvis W INDICATIONS: worsening abdominal pain s/p surgery CONTRAST: IV CONTRAST: Optiray 320 ml: 100 PO CONTRAST: *NO PO CONTRAST TECHNIQUE: After the administration of IV contrast, 5 mm thick sections acquired from the diaphragms to the symp hysis. 5 mm thick coronal and sagittal reformats were acquired. For radiation dose reduction, the f ollowing was used: automated exposure control, adjustment of mA and/or kV according to patient size. COMPARISON: 09/20/2020 FINDINGS: Image quality: Excellent. ABDOMEN: Lung bases: There is persistent atelectatic consolidation at the right posterior lower lung and new l eft posterior lower lobe consolidative change as well as a trace left pleural effusion. Heart size is normal. Mild coronary artery calcification. Solid organs: Liver and spleen are normal in size and enhancement. Gallbladder is contracted. Bili adriane system is non dilated. Pancreas enhances normally. No adrenal nodules. Kidneys demonstrate nor mal size and enhancement, without hydronephrosis. Peritoneum and bowel: Stomach contains fluid. Nearly all visible small bowel loops are markedly dilat ed and contain air-fluid levels. Diverting right lower quadrant ostomy is present and there is likely a transition point near the ostomy. There is a rectal anastomosis which appears intact. Mild perirec ray fascial thickening is seen. No focal fluid collections. Drain tubing courses into the pelvis thro ugh the right mid Abdominal wall. Trace foci of free intraperitoneal air in the pelvis is present, li josué postsurgical. Nodes and vessels: No retroperitoneal or mesenteric adenopathy by size criteria. Aorta and inferior vena cava are normal in size. Miscellaneous: There is surgical changes along the anterior abdominal wall including scattered foci o f subcutaneous gas and ok. PELVIS: Genitourinary: Bladder wall thickness is normal. Miscellaneous: No inguinal hernias or adenopathy. Bilateral hydrocele. Bones: No suspicious bony lesions. No vertebral body compression fractures. IMPRESSION: 1. Interval development of distal small bowel obstruction with transition point likely near the newly created diverting right lower quadrant ostomy. 2. Expected surgical changes within the abdominal wall and trace intraperitoneal air. 3. Worsening bibasilar atelectatic changes, particularly on the left now with trace left effusion. 4. Findings discussed with Dr. Hannah at 1105, [place] standard time. Reviewed by: Stefani Banda MD on 09/30/2020 11:08 AM [facility] Approved by: Stefani Banda MD on 09/30/2020 11:08 AM [facility] Station ID: [id number]
--- NOTE | 2020-09-30 15:31 | PROVIDER PROGRESS NOTE ---
Assessment/Plan - Problem List (1) Diverticulitis Assessment/Plan: Perforation and abscess. Patient is postop day #6 of surgery. Colostomy appreciable. Stoma currently appears reddish-pink. Greenish liquid output in the colostomy bag The pain was worse overnight and this morning. Patient's white blood cell count today stayed at 15 We will continue Zosyn. Plan is to continue IV antibiotics until postop day # 10. Vancomycin and Diflucan discontinued [employer] Dilaudid pump discontinued. Patient has Tylenol, oxycodone and morphine ordered as needed for pain. Pregabalin and Toradol added as needed MiraLAX discontinued. lactulose ordered. Reglan added He is receiving TPN. Accu-Cheks q. AC and HS. Sliding scale insulin ordered. CT scan of the abdomen pelvis showed distal small bowel obstruction with crowley sition point close to ostomy site. Patient is n.p.o. with sips and chips. General surgery also following. Anticipated discharge in 2 to 3 days (2) Small bowel obstruction Assessment/Plan: T scan of the abdomen pelvis showed distal bowel obstruction with transition point close to the ostomy site. NG tube placed with connection to low continous suction And may have ice chips and sips. General surgery will continue to follow - Current Meds Current Meds: Current Medications Generic Name Dose Route Start Last Admin Trade Name Freq PRN Reason Stop Dose Admin Acetaminophen 650 mg 09/13/20 22:36 09/29/20 09:38 Acetaminophen 325 Mg Tablet PO 650 mg Q4HR PRN Administration Pain 1 to 4 Enoxaparin Sodium 40 mg 09/14/20 09:00 09/30/20 08:41 Enoxaparin 40 Mg/0.4 Ml Syringe SUBQ 40 mg DAILY ASHWIN Administration Hydralazine HCl 10 mg 09/17/20 11:31 09/30/20 08:43 Hydralazine Inj 20 Mg/Ml Vial IVP 10 mg Q4H PRN Administration PRN if SBP>170 Hydromorphone HCl 1 mg 09/27/20 10:17 09/28/20 01:02 Hydromorphone 1 Mg/Ml Carpuject IVP 1 mg Q2HR PRN Administration PAIN Piperacillin Sod/Tazobactam 100 mls @ 25 mls/hr 09/17/20 17:00 09/30/20 13:55 Sod 3.375 gm/ Sodium Chloride IV Infused Q8H ASHWIN Infusion Fat Emulsion Intravenous 250 mls @ 21 mls/hr 09/23/20 19:00 09/30/20 07:30 Intralipid 20% IV Infused TPN/PPN ASHWIN Infusion TRACE ELEMENTS 1 ml/ Amino Ac/ 2,001 mls @ 83.375 mls/hr 09/24/20 19:00 09/30/20 11:55 Electrol/Dextrose/Calcium IV 83.4 mls/hr TPN/PPN ASHWIN Infusion Sodium Chloride 500 mls @ 20 mls/hr 09/25/20 09:34 09/27/20 14:42 Normal Saline 0.9% IV Infused Q24H PRN Infusion TKO RATE Acetaminophen 100 mls @ 400 mls/hr 09/30/20 02:10 09/30/20 12:23 Ofirmev IV Infused Q6HR PRN Infusion PAIN Insulin Human Regular 1 - 5 unit 09/29/20 19:00 09/30/20 11:06 Insulin Regular Human 300 Unit/3 Ml Vial SUBQ Not Given Q6HR [facility] Protocol Metoclopramide HCl 5 mg 09/29/20 12:39 09/30/20 09:03 Metoclopramide 10 Mg/2 Ml Vial IVP 5 mg Q6HR PRN Administration Nausea / Vomiting Multivitamins/Minerals 1 tab 09/23/20 16:00 09/30/20 08:41 Multivitamin W/Minerals Tablet PO 1 tab DAILYWM ASHWIN Administration Ondansetron HCl 4 mg 09/29/20 09:27 09/30/20 02:35 Ondansetron 4 Mg/2 Ml Vial IVP 4 mg Q6HR PRN Administration Nausea / Vomiting Oxycodone HCl 5 mg 09/13/20 22:36 09/28/20 08:26 Oxycodone 5 Mg Tablet PO 5 mg Q4HR PRN Administration Pain 5 to 7 Pantoprazole Sodium 40 mg 09/14/20 07:00 09/30/20 06:51 Pantoprazole 40 Mg Tablet PO 40 mg QDAC ASHWIN Administration Pregabalin 100 mg 09/24/20 21:00 09/30/20 08:40 Pregabalin 100 Mg Capsule PO 100 mg BID ASHWIN Administration Sodium Chloride 10 ml 09/13/20 22:36 09/30/20 00:15 Sodium Chloride Flush 0.9% 10 Ml Syringe IVP 10 ml PRN PRN Administration NEEDED PER PROVIDER ORDERS Sodium Chloride 10 ml 09/14/20 01:00 09/30/20 08:47 Sodium Chloride Flush 0.9% 10 Ml Syringe IVP 10 ml 0100,0900,1700 ASHWIN Administration - Lab Result Fish Bone Diagrams: 09/30/20 05:30 09/30/20 05:30 - Additional Planning My Orders: My Active Orders 09/29/20 18:49 Blood Glucose POC [RC] 0000,0600,1200,1800 Initiate Hypoglycemia Protocol [RC] .protocol 09/29/20 19:00 Insulin Regular Human [Humulin R] 1 - 5 unit SUBQ Q6HR 09/30/20 12:46 No-Charge 1V Abdomen [XR] Routine 10/01/20 05:00 CBC - COMP BLD CT W/AUTO DIFF [HEME] DAILYLAB Subjective - Subjective Patient Reports: Other (Was significantly nauseous with attempts to ingest a nything by mouth yesterday. His abdominal pain persisted into the morning. CT scan of the abd/pel was ordered this morning for further evaluation.) Objective Vital Signs: Vital Signs - 24 hr 09/29/20 09/30/20 09/30/20 16:12 00:09 00:29 Temperature 37.4 C 37.2 C Heart Rate [ 70 71 Brachial] Heart Rate [ Monitoring electrodes] Respiratory 18 18 Rate Blood Pressure Blood Pressure 156/88 H [Left Brachial artery] Blood Pressure 174/95 H 187/86 H [Right Forearm] O2 Saturation 95 94 09/30/20 09/30/20 09/30/20 00:32 00:33 00:35 Temperature Heart Rate [ Brachial] Heart Rate [ Monitoring electrodes] Respiratory Rate Blood Pressure 187/56 H Blood Pressure [Left Brachial artery] Blood Pressure 165/94 H 152/92 H [Right Forearm] O2 Saturation 09/30/20 09/30/20 09/30/20 00:40 00:45 01:00 Temperature Heart Rate [ Brachial] Heart Rate [ 69 70 74 Monitoring electrodes] Respiratory Rate Blood Pressure Blood Pressure [Left Brachial artery] Blood Pressure 171/77 H 185/86 H 176/89 H [Right Forearm] O2 Saturation 09/30/20 09/30/20 09/30/20 01:02 01:15 01:30 Temperature Heart Rate [ Brachial] Heart Rate [ 71 68 Monitoring electrodes] Respiratory Rate Blood Pressure 182/87 H Blood Pressure [Left Brachial artery] Blood Pressure 186/77 H 178/84 H [Right Forearm] O2 Saturation 09/30/20 09/30/20 09/30/20 01:39 01:45 02:11 Temperature Heart Rate [ 71 Brachial] Heart Rate [ 69 73 Monitoring electrodes] Respiratory Rate Blood Pressure Blood Pressure 179/92 H 174/91 H 160/87 H [Left Brachial artery] Blood Pressure [Right Forearm] O2 Saturation 09/30/20 09/30/20 09/30/20 08:22 08:43 08:45 Temperature 37.0 C Heart Rate [ 68 71 Brachial] Heart Rate [ Monitoring electrodes] Respiratory 20 Rate Blood Pressure 194/97 H Blood Pressure 183/94 H 177/90 H [Left Brachial artery] Blood Pressure [Right Forearm] O2 Saturation 97 09/30/20 09/30/20 09/30/20 08:54 09:00 09:15 Temperature Heart Rate [ 77 Brachial] Heart Rate [ 117 H Monitoring electrodes] Respiratory Rate Blood Pressure 153/97 H Blood Pressure 182/95 H 167/92 H [Left Brachial artery] Blood Pressure [Right Forearm] O2 Saturation 09/30/20 09:30 Temperature Heart Rate [ Brachial] Heart Rate [ Monitoring electrodes] Respiratory Rate Blood Pressure Blood Pressure 150/94 H [Left Brachial artery] Blood Pressure [Right Forearm] O2 Saturation Oxygen O2 Source Room air I&O (Last 24 Hrs): Intake and Output Totals x24h 09/28/20 09/29/20 09/30/20 23:59 23:59 23:59 Intake Total 3211 2643.8 2200.77 Output Total 3098 2308 1750 Balance 113 335.8 450.77 General: Alert, Oriented x3, Moderate distress, Other (Appears exhausted) HEENT: PERRLA, EOMI Neck: Supple, No JVD Neuro: Alert, Non Focal, Oriented Times 3 Cardiovascular: Regular rate, No murmurs Respiratory: Chest non-tender, No respiratory distress, Breath sounds nml Abdomen: Other (Firm. Somewhat tender to palpation.) - Results Results: Laboratory Results WBC 15.5 x10^3/uL (4.8-10.8) H 09/30/20 05:30 RBC 4.04 10^6/uL (4.70-6.10) L 09/30/20 05:30 Hgb 12.0 g/dL (14.0-18.0) L 09/30/20 05:30 Hct 36.7 % (42.0-52.0) L 09/30/20 05:30 MCV 90.8 fL (80.0-94.0) 09/30/20 05:30 MCH 29.7 pg (27.0-31.0) 09/30/20 05:30 MCHC 32.7 g/dL (32.0-36.0) 09/30/20 05:30 RDW 12.0 % (12.0-15.0) 09/30/20 05:30 Plt Count 392 10^3/uL (130-450) 09/30/20 05:30 MPV 10.9 fL (7.4-11.4) 09/30/20 05:30 Neut # (Auto) 12.0 10^3/uL (1.5-6.6) H 09/30/20 05:30 Lymph # (Auto) 1.8 10^3/uL (1.5-3.5) 09/30/20 05:30 [place] # (Auto) 1.2 10^3/uL (0.0-1.0) H 09/30/20 05:30 Eos # (Auto) 0.3 10^3/uL (0.0-0.7) 09/30/20 05:30 Baso # (Auto) 0.1 10^3/uL (0.0-0.1) 09/30/20 05:30 Absolute Nucleated RBC 0.00 x10^3/uL 09/30/20 05:30 Total Counted 100 09/25/20 04:00 Band Neuts % (Manual) 9 % (0-10) 09/25/20 04:00 Abnorm Lymph % (Manual) 0 % 09/25/20 04:00 Nucleated RBC % 0.0 /100WBC 09/30/20 05:30 Neutrophils # (Manual) 24.6 10^3/uL (1.5-6.6) H 09/25/20 04:00 Lymphocytes # (Manual) 0.8 10^3/uL (1.5-3.5) L 09/25/20 04:00 Monocytes # (Manual) 0.8 10^3/uL (0.0-1.0) 09/25/20 04:00 Eosinophils # (Manual) 0.0 10^3/uL (0-0.7) 09/25/20 04:00 Basophils # (Manual) 0.0 10^3/uL (0-0.1) 09/25/20 04:00 Differential Comment MANUAL DIFFERENTIAL 09/25/20 04:00 WBC Morphology NORMAL APPEARANCE (NORMAL) 09/14/20 04:36 Platelet Estimate NORMAL (130-450,000) (NORMAL) 09/25/20 04:00 Platelet Morphology NORMAL APPEARANCE (NORMAL) 09/14/20 04:36 RBC Morph Micro Appear NORMAL APPEARANCE (NORMAL) 09/25/20 04:00 Sodium 140 mmol/L (135-145) 09/30/20 05:30 Potassium 3.8 mmol/L (3.5-5.0) 09/30/20 05:30 Chloride 103 mmol/L (101-111) 09/30/20 05:30 Carbon Dioxide 25 mmol/L (21-32) 09/30/20 05:30 Anion Gap 12.0 (6-13) 09/30/20 05:30 BUN 23 mg/dL (6-20) H 09/30/20 05:30 Creatinine 1.0 mg/dL (0.6-1.2) 09/30/20 05:30 Estimated GFR (MDRD) 78 (>89) L 09/30/20 05:30 Glucose 139 mg/dL (70-100) H 09/30/20 05:30 POC Whole Bld Glucose 137 mg/dL (70 - 100) H 09/30/20 11:05 Lactic Acid 0.9 mmol/L (0.5-2.2) 09/13/20 21:54 Calcium 9.3 mg/dL (8.5-10.3) 09/30/20 05:30 Ionized Calcium NO 09/30/20 05:30 Phosphorus 3.7 mg/dL (2.5-4.6) 09/28/20 05:30 Magnesium 1.8 mg/dL (1.7-2.8) 09/28/20 05:30 Total Bilirubin 0.7 mg/dL (0.2-1.0) 09/30/20 05:30 AST 37 IU/L (10-42) 09/30/20 05:30 ALT 39 IU/L (10-60) 09/30/20 05:30 Alkaline Phosphatase 77 IU/L (42-121) 09/30/20 05:30 C-Reactive Protein 5.9 mg/dL (0-1.0) H 09/23/20 05:09 Total Protein 6.7 g/dL (6.7-8.2) 09/30/20 05:30 Albumin 2.8 g/dL (3.2-5.5) L 09/30/20 05:30 Globulin 3.9 g/dL (2.1-4.2) 09/30/20 05:30 Albumin/Globulin Ratio 0.7 (1.0-2.2) L 09/30/20 05:30 Prealbumin 14 mg/dL (18-45) L 09/28/20 05:30 Triglycerides 100 mg/dL (-149) 09/28/20 05:30 Lipase 25 U/L (22-51) 09/13/20 21:44 Nasal Adenovirus (PCR) NOT DETECTED 09/14/20 00:00 Nasal B. parapertussis DNA (PCR) NOT DETECTED 09/14/20 00:00 Nasal Coronavir 229E PCR NOT DETECTED 09/14/20 00:00 Nasal Coronavir HKU1 PCR NOT DETECTED 09/14/20 00:00 Nasal Coronavir NL63 PCR NOT DETECTED 09/14/20 00:00 Nasal Coronavir OC43 PCR NOT DETECTED 09/14/20 00:00 Nasal Enterovir/Rhinovir PCR NOT DETECTED 09/14/20 00:00 Nasal Influenza B PCR NOT DETECTED 09/14/20 00:00 Nasal Influenza A PCR NOT DETECTED 09/14/20 00:00 Nasal Parainfluen 1 PCR NOT DETECTED 09/14/20 00:00 Nasal Parainfluen 2 PCR NOT DETECTED 09/14/20 00:00 Nasal Parainfluen 3 PCR NOT DETECTED 09/14/20 00:00 Nasal Parainfluen 4 PCR NOT DETECTED 09/14/20 00:00 Nasal RSV (PCR) NOT DETECTED 09/14/20 00:00 Nasal Screen MRSA (PCR) NEGATIVE (NEGATIVE) 09/24/20 20:58 Nasal B.pertussis DNA PCR NOT DETECTED 09/14/20 00:00 Nasal C.pneumoniae (PCR) NOT DETECTED 09/14/20 00:00 Julio Human Metapneumo PCR NOT DETECTED 09/14/20 00:00 Nasal M.pneumoniae (PCR) NOT DETECTED 09/14/20 00:00 Nasal SARS-CoV-2 (PCR) NOT DETECTED 09/14/20 00:00 Stl C. diff Tox B Gene NEGATIVE (NEGATIVE) 09/15/20 11:04 - Procedures Procedures: Procedures COLONOSCOPY (05/29/13) ABX Reporting Has patient been on IV antibiotics over the past 48 hours?: Yes
--- NOTE | 2020-09-30 15:37 | XRAY Report ---
PROCEDURE: No-Charge 1V Abdomen INDICATIONS: NGT PLACEMENT TECHNIQUE: 1 view of the abdomen were acquired. COMPARISON: CT performed earlier the same day FINDINGS: Surgical changes and devices: Nasogastric tube is in place in the proximal stomach. A surgical drain courses in the mid abdomen and terminates in the pelvis. There is an ostomy appliance partially image d in the right lateral abdomen.. Surgical ok in the low transverse incision across the pelvis a nd in the periumbilical region. Bowel: Distended air-filled stomach and dilated small bowel loops throughout the abdomen.. Soft tissues: No masses; visualized solid organ contours appear normal in size. No suspicious abdom inal calcifications. Excreted contrast in the urinary bladder. Bones: No suspicious bony abnormalities. IMPRESSION: 1. Adequate placement of nasogastric tube. 2. Dilated bowel loops consistent with small bowel obstruction. Reviewed by: Stefani Banda MD on 09/30/2020 2:36 PM [place] Approved by: Stefani Banda MD on 09/30/2020 2:36 PM [facility] Station ID: [id number]
--- NOTE | 2020-09-30 17:24 | PROVIDER PROGRESS NOTE ---
Subjective - Prog Note Date Prog Note Date: 09/30/20 - Subjective Pt reports feeling: No change (progressive bloating over the weekend and n/v ngt now in place) Objective - Vital Signs/Intake & Output Reviewed Vital Signs: Yes Vital Signs: Vital Signs x48h Temp Pulse Resp BP Pulse Ox 09/30/20 16:09 37.3 C 79 18 164/93 H 95 09/30/20 09:30 150/94 H Intake & Output: Intake & Output 09/27/20 09/28/20 09/29/20 09/30/20 23:59 23:59 23:59 23:59 Intake Total 5266.667 3211 2643.8 2250.77 Output Total 1698 3098 2308 1780 Balance 3568.667 113 335.8 470.77 - Objective General Appearance: positive: No acute distress, Alert Eyes Bilateral: positive: Normal inspection Neck: positive: No JVD Respiratory: positive: No respiratory distress Abdomen: positive: Other (mild distension. no erythema. teja then serous some air in fluid in the bag. stoma swollen however improved) - Lab Results Fish Bones: 09/30/20 05:30 09/30/20 05:30 Other Labs: Lab Results x24hrs 09/30/20 09/30/20 09/30/20 Range/Units 11:05 05:48 05:30 WBC (4.8-10.8) x10^3/uL RBC (4.70-6.10) 10^6/uL Hgb (14.0-18.0) g/dL Hct (42.0-52.0) % MCV (80.0-94.0) fL MCH (27.0-31.0) pg MCHC (32.0-36.0) g/dL RDW (12.0-15.0) % Plt Count (130-450) 10^3/uL MPV (7.4-11.4) fL Neut # (Auto) (1.5-6.6) 10^3/uL Lymph # (Auto) (1.5-3.5) 10^3/uL [place] # (Auto) (0.0-1.0) 10^3/uL Eos # (Auto) (0.0-0.7) 10^3/uL Baso # (Auto) (0.0-0.1) 10^3/uL Absolute Nucleated RBC x10^3/uL Nucleated RBC % /100WBC Sodium 140 (135-145) mmol/L Potassium 3.8 (3.5-5.0) mmol/L Chloride 103 (101-111) mmol/L Carbon Dioxide 25 (21-32) mmol/L Anion Gap 12.0 (6-13) BUN 23 H (6-20) mg/dL Creatinine 1.0 (0.6-1.2) mg/dL Estimated GFR (MDRD) 78 L (>89) Glucose 139 H (70-100) mg/dL POC Whole Bld Glucose 137 H 129 H (70 - 100) mg/dL Calcium 9.3 (8.5-10.3) mg/dL Ionized Calcium NO Total Bilirubin 0.7 (0.2-1.0) mg/dL AST 37 (10-42) IU/L ALT 39 (10-60) IU/L Alkaline Phosphatase 77 (42-121) IU/L Total Protein 6.7 (6.7-8.2) g/dL Albumin 2.8 L (3.2-5.5) g/dL Globulin 3.9 (2.1-4.2) g/dL Albumin/Globulin Ratio 0.7 L (1.0-2.2) 09/30/20 09/30/20 09/29/20 Range/Units 05:30 00:08 18:59 WBC 15.5 H (4.8-10.8) x10^3/uL RBC 4.04 L (4.70-6.10) 10^6/uL Hgb 12.0 L (14.0-18.0) g/dL Hct 36.7 L (42.0-52.0) % MCV 90.8 (80.0-94.0) fL MCH 29.7 (27.0-31.0) pg MCHC 32.7 (32.0-36.0) g/dL RDW 12.0 (12.0-15.0) % Plt Count 392 (130-450) 10^3/uL MPV 10.9 (7.4-11.4) fL Neut # (Auto) 12.0 H (1.5-6.6) 10^3/uL Lymph # (Auto) 1.8 (1.5-3.5) 10^3/uL [place] # (Auto) 1.2 H (0.0-1.0) 10^3/uL Eos # (Auto) 0.3 (0.0-0.7) 10^3/uL Baso # (Auto) 0.1 (0.0-0.1) 10^3/uL Absolute Nucleated RBC 0.00 x10^3/uL Nucleated RBC % 0.0 /100WBC Sodium (135-145) mmol/L Potassium (3.5-5.0) mmol/L Chloride (101-111) mmol/L Carbon Dioxide (21-32) mmol/L Anion Gap (6-13) BUN (6-20) mg/dL Creatinine (0.6-1.2) mg/dL Estimated GFR (MDRD) (>89) Glucose (70-100) mg/dL POC Whole Bld Glucose 143 H 142 H (70 - 100) mg/dL Calcium (8.5-10.3) mg/dL Ionized Calcium Total Bilirubin (0.2-1.0) mg/dL AST (10-42) IU/L ALT (10-60) IU/L Alkaline Phosphatase (42-121) IU/L Total Protein (6.7-8.2) g/dL Albumin (3.2-5.5) g/dL Globulin (2.1-4.2) g/dL Albumin/Globulin Ratio (1.0-2.2) Assessment/Plan - Problem List (1) Diverticulitis of colon with perforation Impression: His distal ileum was adjacent to the diverticular abscess and perforated colon. he had significant swelling of his distal ileum. as the swelling improves his gi function will improve. anticipated ngt for another day or two. pelvic abscess resolved. anastomosis looks very good on ct
[2020-09-30] MEDS: FAT EMULSION 20% 250 ML IV SCH (18:54)
[2020-09-30] MEDS: TPN IV SCH ×2 (18:56)
[2020-09-30] MEDS: TRACE ELEMENTS IV SCH ×2 (18:56)
[2020-09-30] MEDS: SODIUM CHLORIDE 0.9% 500 ML IV PRN (22:33)
[2020-10-01] MEDS: INSULIN REGULAR HUMAN 300 UNIT/3 ML VIAL SUBQ SCH ×4 (00:40→18:23)
[2020-10-01] MEDS: PIPERACILLIN/TAZOBACTAM 3.375 GM in SODIUM CHLORIDE 0.9% MINIBAG 100 ML IV SCH ×3 (00:56→17:23)
[2020-10-01] MEDS: SODIUM CHLORIDE FLUSH 0.9% 10 ML SYRINGE IVP SCH ×3 (01:11→16:22)
[2020-10-01 06:08] LABS: BASOPHILS # (AUTO) 0.1 10^3/uL (0.0-0.1); BASOPHILS % (AUTO) 0.5 %; EOSINOPHILS # (AUTO) 0.3 10^3/uL (0.0-0.7); EOSINOPHILS % (AUTO) 1.7 %; HCT - HEMATOCRIT 39.6 % (42.0-52.0); HGB - HEMOGLOBIN 12.7 g/dL (14.0-18.0); LYMPHOCYTES # (AUTO) 1.6 10^3/uL (1.5-3.5); LYMPHOCYTES % (AUTO) 10.5 %; MEAN CORPUSCULAR HEMOGLOBIN 28.8 pg (27.0-31.0); MEAN CORPUSCULAR HGB CONC 32.1 g/dL (32.0-36.0); MEAN CORPUSCULAR VOLUME 89.8 fL (80.0-94.0); MEAN PLATELET VOLUME 10.9 fL (7.4-11.4); MONOCYTES # (AUTO) 1.2 10^3/uL (0.0-1.0); NEUTROPHILS # (AUTO) 11.6 10^3/uL (1.5-6.6); NEUTROPHILS % (AUTO) 78.3 %; PLT - PLATELET COUNT 388 10^3/uL (130-450); RED BLOOD COUNT 4.41 10^6/uL (4.70-6.10); RED CELL DISTRIBUTION WIDTH 12.3 % (12.0-15.0); WHITE BLOOD COUNT 14.8 x10^3/uL (4.8-10.8)
[2020-10-01] MEDS: PANTOPRAZOLE 40 MG TABLET PO SCH (06:14)
[2020-10-01 06:20] LABS: ALBUMIN 3.1 g/dL (3.2-5.5); ALBUMIN/GLOBULIN RATIO 0.8 (1.0-2.2); BILIRUBIN,TOTAL 0.8 mg/dL (0.2-1.0); CALCIUM 9.6 mg/dL (8.5-10.3); MAGNESIUM 1.9 mg/dL (1.7-2.8); POTASSIUM 3.7 mmol/L (3.5-5.0); TOTAL PROTEIN 7.2 g/dL (6.7-8.2)
[2020-10-01] MEDS ORDERED: LACTATED RINGERS 1,000 ML IV ONE (07:20)
--- NOTE | 2020-10-01 07:38 | PROVIDER PROGRESS NOTE ---
Subjective - Prog Note Date Prog Note Date: 10/01/20 - Subjective Subjective: Feels improved today. Reports less distention. Denies any nausea or vomiting. Has been tolerating sips. His pain is about 2 out of 10. Current Medications - Current Medications Current Medications: Active Medications Acetaminophen (Acetaminophen 325 Mg Tablet) 650 mg PO Q4HR PRN PRN Reason: Pain 1 to 4 Last Admin: 09/29/20 09:38 Dose: 650 mg Documented by: Enoxaparin Sodium (Enoxaparin 40 Mg/0.4 Ml Syringe) 40 mg SUBQ DAILY [facility] Last Admin: 09/30/20 08:41 Dose: 40 mg Documented by: Hydralazine HCl (Hydralazine Inj 20 Mg/Ml Vial) 10 mg IVP Q4H PRN PRN Reason: PRN if SBP>170 Last Admin: 09/30/20 20:27 Dose: 10 mg Documented by: Hydromorphone HCl (Hydromorphone 1 Mg/Ml Carpuject) 1 mg IVP Q2HR PRN PRN Reason: PAIN Last Admin: 09/28/20 01:02 Dose: 1 mg Documented by: Piperacillin Sod/Tazobactam (Sod 3.375 gm/ Sodium Chloride) 100 mls @ 25 mls/hr IV Q8H [facility] Last Infusion: 10/01/20 05:59 Dose: Infused Documented by: Fat Emulsion Intravenous (Intralipid 20%) 250 mls @ 21 mls/hr IV TPN/PPN [facility] Last Admin: 09/30/20 18:54 Dose: 21 mls/hr Documented by: TRACE ELEMENTS 1 ml/ Amino Ac/ (Electrol/Dextrose/Calcium) 2,001 mls @ 83.375 mls/hr IV TPN/PPN [facility] Last Admin: 09/30/20 18:56 Dose: 83.4 mls/hr Documented by: Sodium Chloride (Normal Saline 0.9%) 500 mls @ 20 mls/hr IV Q24H PRN PRN Reason: TKO RATE Last Admin: 09/30/20 22:33 Dose: 10 mls/hr Documented by: Acetaminophen (Ofirmev) 100 mls @ 400 mls/hr IV Q6HR PRN PRN Reason: PAIN Last Infusion: 09/30/20 22:32 Dose: Infused Documented by: Lactated Ringer's (Lr) 1,000 mls @ 500 mls/hr IV ONCE ONE Stop: 10/01/20 09:19 Insulin Human Regular (Insulin Regular Human 300 Unit/3 Ml Vial) 1 - 5 unit SUBQ Q6HR [facility]; Protocol Last Admin: 10/01/20 05:56 Dose: Not Given Documented by: Metoclopramide HCl (Metoclopramide 10 Mg/2 Ml Vial) 5 mg IVP Q6HR PRN PRN Reason: Nausea / Vomiting Last Admin: 09/30/20 09:03 Dose: 5 mg Documented by: Multivitamins/Minerals (Multivitamin W/Minerals Tablet) 1 tab PO DAILYWM [facility] Last Admin: 09/30/20 08:41 Dose: 1 tab Documented by: Ondansetron HCl (Ondansetron 4 Mg/2 Ml Vial) 4 mg IVP Q6HR PRN PRN Reason: Nausea / Vomiting Last Admin: 09/30/20 02:35 Dose: 4 mg Documented by: Oxycodone HCl (Oxycodone 5 Mg Tablet) 5 mg PO Q4HR PRN PRN Reason: Pain 5 to 7 Last Admin: 09/28/20 08:26 Dose: 5 mg Documented by: Pantoprazole Sodium (Pantoprazole 40 Mg Vial) 40 mg IVP QDAC [facility] Pregabalin (Pregabalin 25 Mg Capsule) 50 mg PO BID [facility] Sodium Chloride (Sodium Chloride Flush 0.9% 10 Ml Syringe) 10 ml IVP PRN PRN PRN Reason: NEEDED PER PROVIDER ORDERS Last Admin: 09/30/20 00:15 Dose: 10 ml Documented by: Sodium Chloride (Sodium Chloride Flush 0.9% 10 Ml Syringe) 10 ml IVP 0100,0900,1700 [facility] Last Admin: 10/01/20 01:11 Dose: Not Given Documented by: No Known Home Medications 09/15/20 Objective - Vital Signs/Intake & Output Reviewed Vital Signs: Yes Intake & Output: Intake & Output 09/28/20 09/29/20 09/30/20 10/01/20 23:59 23:59 23:59 23:59 Intake Total 3211 2643.8 3175.96 110 Output Total 3098 2308 3675 1765 Balance 113 335.8 -499.04 -1655 - Objective General Appearance: positive: No acute distress, Alert Eyes Bilateral: positive: Normal inspection, Conjunctivae nml ENT: positive: ENT inspection nml, Other (NG tube in place.) Neck: positive: Nml inspection Respiratory: positive: No respiratory distress. negative: Wheezes, Rales Cardiovascular: positive: Regular rate & rhythm, No murmur. negative: Tachycardia Abdomen: positive: Non-tender, No distention, Other (Ostomy in place in right lower quadrant. MARGARETTE drain noted. Abdomen is soft nondistended. Bowel sounds present.). negative: Tenderness, Guarding, Rebound Skin: positive: Warm, Dry Extremities: positive: No pedal edema - Lab Results Fish Bones: 10/01/20 05:45 10/01/20 05:45 Other Labs: Lab Results x24hrs 10/01/20 10/01/20 10/01/20 Range/Units 07:34 05:52 05:45 WBC 14.8 H (4.8-10.8) x10^3/uL RBC 4.41 L (4.70-6.10) 10^6/uL Hgb 12.7 L (14.0-18.0) g/dL Hct 39.6 L (42.0-52.0) % MCV 89.8 (80.0-94.0) fL MCH 28.8 (27.0-31.0) pg MCHC 32.1 (32.0-36.0) g/dL RDW 12.3 (12.0-15.0) % Plt Count 388 (130-450) 10^3/uL MPV 10.9 (7.4-11.4) fL Neut # (Auto) 11.6 H (1.5-6.6) 10^3/uL Lymph # (Auto) 1.6 (1.5-3.5) 10^3/uL [place] # (Auto) 1.2 H (0.0-1.0) 10^3/uL Eos # (Auto) 0.3 (0.0-0.7) 10^3/uL Baso # (Auto) 0.1 (0.0-0.1) 10^3/uL Absolute Nucleated RBC 0.00 x10^3/uL Nucleated RBC % 0.0 /100WBC Sodium (135-145) mmol/L Potassium (3.5-5.0) mmol/L Chloride (101-111) mmol/L Carbon Dioxide (21-32) mmol/L Anion Gap (6-13) BUN (6-20) mg/dL Creatinine (0.6-1.2) mg/dL Estimated GFR (MDRD) (>89) Glucose (70-100) mg/dL POC Whole Bld Glucose 134 H 107 H (70 - 100) mg/dL Calcium (8.5-10.3) mg/dL Phosphorus (2.5-4.6) mg/dL Magnesium (1.7-2.8) mg/dL Total Bilirubin (0.2-1.0) mg/dL AST (10-42) IU/L ALT (10-60) IU/L Alkaline Phosphatase (42-121) IU/L Total Protein (6.7-8.2) g/dL Albumin (3.2-5.5) g/dL Globulin (2.1-4.2) g/dL Albumin/Globulin Ratio (1.0-2.2) Prealbumin (18-45) mg/dL Triglycerides ( - 149) mg/dL 10/01/20 09/30/20 09/30/20 Range/Units 05:45 23:22 17:41 WBC (4.8-10.8) x10^3/uL RBC (4.70-6.10) 10^6/uL Hgb (14.0-18.0) g/dL Hct (42.0-52.0) % MCV (80.0-94.0) fL MCH (27.0-31.0) pg MCHC (32.0-36.0) g/dL RDW (12.0-15.0) % Plt Count (130-450) 10^3/uL MPV (7.4-11.4) fL Neut # (Auto) (1.5-6.6) 10^3/uL Lymph # (Auto) (1.5-3.5) 10^3/uL [place] # (Auto) (0.0-1.0) 10^3/uL Eos # (Auto) (0.0-0.7) 10^3/uL Baso # (Auto) (0.0-0.1) 10^3/uL Absolute Nucleated RBC x10^3/uL Nucleated RBC % /100WBC Sodium 141 (135-145) mmol/L Potassium 3.7 (3.5-5.0) mmol/L Chloride 103 (101-111) mmol/L Carbon Dioxide 25 (21-32) mmol/L Anion Gap 13.0 (6-13) BUN 22 H (6-20) mg/dL Creatinine 1.0 (0.6-1.2) mg/dL Estimated GFR (MDRD) 78 L (>89) Glucose 111 H (70-100) mg/dL POC Whole Bld Glucose 146 H 146 H (70 - 100) mg/dL Calcium 9.6 (8.5-10.3) mg/dL Phosphorus 4.0 (2.5-4.6) mg/dL Magnesium 1.9 (1.7-2.8) mg/dL Total Bilirubin 0.8 (0.2-1.0) mg/dL AST 33 (10-42) IU/L ALT 48 (10-60) IU/L Alkaline Phosphatase 87 (42-121) IU/L Total Protein 7.2 (6.7-8.2) g/dL Albumin 3.1 L (3.2-5.5) g/dL Globulin 4.1 (2.1-4.2) g/dL Albumin/Globulin Ratio 0.8 L (1.0-2.2) Prealbumin 25 (18-45) mg/dL Triglycerides 109 ( - 149) mg/dL 09/30/20 Range/Units 11:05 WBC (4.8-10.8) x10^3/uL RBC (4.70-6.10) 10^6/uL Hgb (14.0-18.0) g/dL Hct (42.0-52.0) % MCV (80.0-94.0) fL MCH (27.0-31.0) pg MCHC (32.0-36.0) g/dL RDW (12.0-15.0) % Plt Count (130-450) 10^3/uL MPV (7.4-11.4) fL Neut # (Auto) (1.5-6.6) 10^3/uL Lymph # (Auto) (1.5-3.5) 10^3/uL [place] # (Auto) (0.0-1.0) 10^3/uL Eos # (Auto) (0.0-0.7) 10^3/uL Baso # (Auto) (0.0-0.1) 10^3/uL Absolute Nucleated RBC x10^3/uL Nucleated RBC % /100WBC Sodium (135-145) mmol/L Potassium (3.5-5.0) mmol/L Chloride (101-111) mmol/L Carbon Dioxide (21-32) mmol/L Anion Gap (6-13) BUN (6-20) mg/dL Creatinine (0.6-1.2) mg/dL Estimated GFR (MDRD) (>89) Glucose (70-100) mg/dL POC Whole Bld Glucose 137 H (70 - 100) mg/dL Calcium (8.5-10.3) mg/dL Phosphorus (2.5-4.6) mg/dL Magnesium (1.7-2.8) mg/dL Total Bilirubin (0.2-1.0) mg/dL AST (10-42) IU/L ALT (10-60) IU/L Alkaline Phosphatase (42-121) IU/L Total Protein (6.7-8.2) g/dL Albumin (3.2-5.5) g/dL Globulin (2.1-4.2) g/dL Albumin/Globulin Ratio (1.0-2.2) Prealbumin (18-45) mg/dL Triglycerides ( - 149) mg/dL ABX Reporting Has patient been on IV antibiotics over the past 48 hours?: Yes Assessment/Plan - Problem List (1) Diverticulitis of colon with perforation Impression: This was complicated by perforation and abscess. He is now postop day 7. White count remains elevated but is slowly improving. Vancomycin and Diflucan have been discontinued and he remains on Zosyn IV. Repeat CT abdomen pelvis yesterday showed a small bowel obstruction at the ostomy site. We will continue pain control with morphine and oxycodone as needed. We will decrease the dose of Lyrica today to 50 mg twice daily. We will continue with Zosyn IV as the plan for the time being is to continue until postop day 10. Appreciate general surgery input. (2) Small bowel obstruction Impression: This appears to be improving. This was evident on the CT of the abdomen and pelvis obtained yesterday. He has responded well to NG tube placement. No more nausea or vomiting and he feels less distended. Bowel sounds are noted today. Will discuss with general surgery will likely keep the NG tube in place and will look to clamp it later on this evening or tomorrow. Continue with sips as tolerated. (3) Hypertension Impression: We will continue with hydralazine IV as needed given the small bowel obstruction. We will start him on amlodipine once taking p.o. consistently.
[2020-10-01] MEDS: ENOXAPARIN 40 MG/0.4 ML SYRINGE SUBQ SCH (08:43)
[2020-10-01] MEDS: PREGABALIN 25 MG CAPSULE PO SCH ×3 (08:45→21:40)
[2020-10-01] MEDS: MULTIVITAMIN W/MINERALS TABLET PO SCH ×2 (08:46→08:48)
[2020-10-01] MEDS: PANTOPRAZOLE 40 MG VIAL IVP SCH (08:57)
[2020-10-01] MEDS: ACETAMINOPHEN 1,000 MG/100 ML 100 ML IV PRN ×2 (10:48→18:25)
[2020-10-01] MEDS: ONDANSETRON 4 MG/2 ML VIAL IVP PRN (16:21)
--- NOTE | 2020-10-01 16:32 | PROVIDER PROGRESS NOTE ---
Subjective - Prog Note Date Prog Note Date: 10/01/20 - Subjective Pt reports feeling: Improved (less distended. more output in stoma bag) Objective - Vital Signs/Intake & Output Reviewed Vital Signs: Yes Vital Signs: Vital Signs x48h Temp Pulse Resp BP Pulse Ox 10/01/20 16:08 36.7 C 66 18 188/86 H 98 10/01/20 14:05 37.4 C 73 18 179/94 H 96 Intake & Output: Intake & Output 09/28/20 09/29/20 09/30/20 10/01/20 23:59 23:59 23:59 23:59 Intake Total 3211 2643.8 3175.96 1600 Output Total 3098 2308 3675 3435 Balance 113 335.8 -499.04 -1835 - Objective General Appearance: positive: No acute distress, Alert Eyes Bilateral: positive: Normal inspection ENT: positive: No signs of dehydration Neck: positive: No JVD Respiratory: positive: No respiratory distress Abdomen: positive: Non-tender, No distention, Other (stoma less edematous with intestinal fluid and air in bag ngt less green and thiner) - Lab Results Fish Bones: 10/01/20 05:45 10/01/20 05:45 Other Labs: Lab Results x24hrs 10/01/20 10/01/20 10/01/20 Range/Units 11:07 07:34 05:52 WBC (4.8-10.8) x10^3/uL RBC (4.70-6.10) 10^6/uL Hgb (14.0-18.0) g/dL Hct (42.0-52.0) % MCV (80.0-94.0) fL MCH (27.0-31.0) pg MCHC (32.0-36.0) g/dL RDW (12.0-15.0) % Plt Count (130-450) 10^3/uL MPV (7.4-11.4) fL Neut # (Auto) (1.5-6.6) 10^3/uL Lymph # (Auto) (1.5-3.5) 10^3/uL [place] # (Auto) (0.0-1.0) 10^3/uL Eos # (Auto) (0.0-0.7) 10^3/uL Baso # (Auto) (0.0-0.1) 10^3/uL Absolute Nucleated RBC x10^3/uL Nucleated RBC % /100WBC Sodium (135-145) mmol/L Potassium (3.5-5.0) mmol/L Chloride (101-111) mmol/L Carbon Dioxide (21-32) mmol/L Anion Gap (6-13) BUN (6-20) mg/dL Creatinine (0.6-1.2) mg/dL Estimated GFR (MDRD) (>89) Glucose (70-100) mg/dL POC Whole Bld Glucose 142 H 134 H 107 H (70 - 100) mg/dL Calcium (8.5-10.3) mg/dL Phosphorus (2.5-4.6) mg/dL Magnesium (1.7-2.8) mg/dL Total Bilirubin (0.2-1.0) mg/dL AST (10-42) IU/L ALT (10-60) IU/L Alkaline Phosphatase (42-121) IU/L Total Protein (6.7-8.2) g/dL Albumin (3.2-5.5) g/dL Globulin (2.1-4.2) g/dL Albumin/Globulin Ratio (1.0-2.2) Prealbumin (18-45) mg/dL Triglycerides ( - 149) mg/dL 10/01/20 10/01/20 09/30/20 Range/Units 05:45 05:45 23:22 WBC 14.8 H (4.8-10.8) x10^3/uL RBC 4.41 L (4.70-6.10) 10^6/uL Hgb 12.7 L (14.0-18.0) g/dL Hct 39.6 L (42.0-52.0) % MCV 89.8 (80.0-94.0) fL MCH 28.8 (27.0-31.0) pg MCHC 32.1 (32.0-36.0) g/dL RDW 12.3 (12.0-15.0) % Plt Count 388 (130-450) 10^3/uL MPV 10.9 (7.4-11.4) fL Neut # (Auto) 11.6 H (1.5-6.6) 10^3/uL Lymph # (Auto) 1.6 (1.5-3.5) 10^3/uL [place] # (Auto) 1.2 H (0.0-1.0) 10^3/uL Eos # (Auto) 0.3 (0.0-0.7) 10^3/uL Baso # (Auto) 0.1 (0.0-0.1) 10^3/uL Absolute Nucleated RBC 0.00 x10^3/uL Nucleated RBC % 0.0 /100WBC Sodium 141 (135-145) mmol/L Potassium 3.7 (3.5-5.0) mmol/L Chloride 103 (101-111) mmol/L Carbon Dioxide 25 (21-32) mmol/L Anion Gap 13.0 (6-13) BUN 22 H (6-20) mg/dL Creatinine 1.0 (0.6-1.2) mg/dL Estimated GFR (MDRD) 78 L (>89) Glucose 111 H (70-100) mg/dL POC Whole Bld Glucose 146 H (70 - 100) mg/dL Calcium 9.6 (8.5-10.3) mg/dL Phosphorus 4.0 (2.5-4.6) mg/dL Magnesium 1.9 (1.7-2.8) mg/dL Total Bilirubin 0.8 (0.2-1.0) mg/dL AST 33 (10-42) IU/L ALT 48 (10-60) IU/L Alkaline Phosphatase 87 (42-121) IU/L Total Protein 7.2 (6.7-8.2) g/dL Albumin 3.1 L (3.2-5.5) g/dL Globulin 4.1 (2.1-4.2) g/dL Albumin/Globulin Ratio 0.8 L (1.0-2.2) Prealbumin 25 (18-45) mg/dL Triglycerides 109 ( - 149) mg/dL 09/30/20 Range/Units 17:41 WBC (4.8-10.8) x10^3/uL RBC (4.70-6.10) 10^6/uL Hgb (14.0-18.0) g/dL Hct (42.0-52.0) % MCV (80.0-94.0) fL MCH (27.0-31.0) pg MCHC (32.0-36.0) g/dL RDW (12.0-15.0) % Plt Count (130-450) 10^3/uL MPV (7.4-11.4) fL Neut # (Auto) (1.5-6.6) 10^3/uL Lymph # (Auto) (1.5-3.5) 10^3/uL [place] # (Auto) (0.0-1.0) 10^3/uL Eos # (Auto) (0.0-0.7) 10^3/uL Baso # (Auto) (0.0-0.1) 10^3/uL Absolute Nucleated RBC x10^3/uL Nucleated RBC % /100WBC Sodium (135-145) mmol/L Potassium (3.5-5.0) mmol/L Chloride (101-111) mmol/L Carbon Dioxide (21-32) mmol/L Anion Gap (6-13) BUN (6-20) mg/dL Creatinine (0.6-1.2) mg/dL Estimated GFR (MDRD) (>89) Glucose (70-100) mg/dL POC Whole Bld Glucose 146 H (70 - 100) mg/dL Calcium (8.5-10.3) mg/dL Phosphorus (2.5-4.6) mg/dL Magnesium (1.7-2.8) mg/dL Total Bilirubin (0.2-1.0) mg/dL AST (10-42) IU/L ALT (10-60) IU/L Alkaline Phosphatase (42-121) IU/L Total Protein (6.7-8.2) g/dL Albumin (3.2-5.5) g/dL Globulin (2.1-4.2) g/dL Albumin/Globulin Ratio (1.0-2.2) Prealbumin (18-45) mg/dL Triglycerides ( - 149) mg/dL Assessment/Plan - Problem List (1) Diverticulitis of colon with perforation Impression: improving. stoma less edematous and gi function returning ivf bolus given this am for elevated bun feeling better likely ngt out tomorrow
[2020-10-01] MEDS: hydrALAZINE INJ 20 MG/ML VIAL IVP PRN (17:54)
[2020-10-01] MEDS: TRACE ELEMENTS IV SCH ×2 (19:11)
[2020-10-01] MEDS: TPN IV SCH ×2 (19:11)
[2020-10-01] MEDS: FAT EMULSION 20% 250 ML IV SCH (19:12)
[2020-10-02] MEDS: ACETAMINOPHEN 1,000 MG/100 ML 100 ML IV PRN ×3 (00:48→21:24)
[2020-10-02] MEDS: INSULIN REGULAR HUMAN 300 UNIT/3 ML VIAL SUBQ SCH ×2 (01:19→06:43)
[2020-10-02] MEDS: PIPERACILLIN/TAZOBACTAM 3.375 GM in SODIUM CHLORIDE 0.9% MINIBAG 100 ML IV SCH ×3 (01:20→16:35)
[2020-10-02] MEDS: SODIUM CHLORIDE FLUSH 0.9% 10 ML SYRINGE IVP SCH ×3 (01:20→16:35)
[2020-10-02] MEDS: PANTOPRAZOLE 40 MG VIAL IVP SCH (06:44)
[2020-10-02] MEDS: SODIUM CHLORIDE FLUSH 0.9% 10 ML SYRINGE IVP PRN (06:45)
[2020-10-02 07:10] LABS: BASOPHILS # (AUTO) 0.1 10^3/uL (0.0-0.1); BASOPHILS % (AUTO) 0.5 %; EOSINOPHILS # (AUTO) 0.2 10^3/uL (0.0-0.7); EOSINOPHILS % (AUTO) 1.7 %; HCT - HEMATOCRIT 37.9 % (42.0-52.0); HGB - HEMOGLOBIN 12.4 g/dL (14.0-18.0); LYMPHOCYTES # (AUTO) 1.4 10^3/uL (1.5-3.5); LYMPHOCYTES % (AUTO) 11.3 %; MEAN CORPUSCULAR HEMOGLOBIN 29.5 pg (27.0-31.0); MEAN CORPUSCULAR HGB CONC 32.7 g/dL (32.0-36.0); MEAN PLATELET VOLUME 10.8 fL (7.4-11.4); MONOCYTES % (AUTO) 8.1 %; NEUTROPHILS # (AUTO) 9.7 10^3/uL (1.5-6.6); NEUTROPHILS % (AUTO) 77.2 %; PLT - PLATELET COUNT 367 10^3/uL (130-450); RED BLOOD COUNT 4.21 10^6/uL (4.70-6.10); RED CELL DISTRIBUTION WIDTH 12.2 % (12.0-15.0); WHITE BLOOD COUNT 12.6 x10^3/uL (4.8-10.8)
[2020-10-02 07:41] LABS: CALCIUM 9.1 mg/dL (8.5-10.3); MAGNESIUM 1.9 mg/dL (1.7-2.8); PHOSPHORUS 3.9 mg/dL (2.5-4.6); POTASSIUM 3.8 mmol/L (3.5-5.0)
--- NOTE | 2020-10-02 07:43 | PROVIDER PROGRESS NOTE ---
Subjective - Prog Note Date Prog Note Date: 10/02/20 - Subjective Subjective: He continues to feel better each day. States his pain is about a 2 out of 10. No nausea or vomiting. Has been tolerating clears. Current Medications - Current Medications Current Medications: Active Medications Acetaminophen (Acetaminophen 325 Mg Tablet) 650 mg PO Q4HR PRN PRN Reason: Pain 1 to 4 Last Admin: 09/29/20 09:38 Dose: 650 mg Documented by: Amlodipine Besylate (Amlodipine 5 Mg Tablet) 5 mg PO DAILY [facility] Last Admin: 10/02/20 10:01 Dose: Not Given Documented by: Enoxaparin Sodium (Enoxaparin 40 Mg/0.4 Ml Syringe) 40 mg SUBQ DAILY [facility] Last Admin: 10/02/20 10:02 Dose: 40 mg Documented by: Hydralazine HCl (Hydralazine Inj 20 Mg/Ml Vial) 10 mg IVP Q4H PRN PRN Reason: PRN if SBP>170 Last Admin: 10/01/20 17:54 Dose: 10 mg Documented by: Hydromorphone HCl (Hydromorphone 1 Mg/Ml Carpuject) 1 mg IVP Q2HR PRN PRN Reason: PAIN Last Admin: 09/28/20 01:02 Dose: 1 mg Documented by: Piperacillin Sod/Tazobactam (Sod 3.375 gm/ Sodium Chloride) 100 mls @ 25 mls/hr IV Q8H [facility] Last Admin: 10/02/20 16:35 Dose: 25 mls/hr Documented by: Fat Emulsion Intravenous (Intralipid 20%) 250 mls @ 21 mls/hr IV TPN/PPN [facility] Last Admin: 10/02/20 18:44 Dose: 21 mls/hr Documented by: TRACE ELEMENTS 1 ml/ Amino Ac/ (Electrol/Dextrose/Calcium) 2,001 mls @ 83.375 mls/hr IV TPN/PPN [facility] Last Admin: 10/02/20 18:45 Dose: 83.4 mls/hr Documented by: Sodium Chloride (Normal Saline 0.9%) 500 mls @ 20 mls/hr IV Q24H PRN PRN Reason: TKO RATE Last Admin: 10/02/20 14:11 Dose: 20 mls/hr Documented by: Acetaminophen (Ofirmev) 100 mls @ 400 mls/hr IV Q6HR PRN PRN Reason: PAIN Last Infusion: 10/02/20 07:17 Dose: Infused Documented by: Metoclopramide HCl (Metoclopramide 10 Mg/2 Ml Vial) 5 mg IVP Q6HR PRN PRN Reason: Nausea / Vomiting Last Admin: 09/30/20 09:03 Dose: 5 mg Documented by: Multivitamins/Minerals (Multivitamin W/Minerals Tablet) 1 tab PO DAILYWM [facility] Last Admin: 10/02/20 10:01 Dose: Not Given Documented by: Ondansetron HCl (Ondansetron 4 Mg/2 Ml Vial) 4 mg IVP Q6HR PRN PRN Reason: Nausea / Vomiting Last Admin: 10/01/20 16:21 Dose: 4 mg Documented by: Oxycodone HCl (Oxycodone 5 Mg Tablet) 5 mg PO Q4HR PRN PRN Reason: Pain 5 to 7 Last Admin: 09/28/20 08:26 Dose: 5 mg Documented by: Pantoprazole Sodium (Pantoprazole 40 Mg Vial) 40 mg IVP QDAC [facility] Last Admin: 10/02/20 06:44 Dose: 40 mg Documented by: Pregabalin (Pregabalin 25 Mg Capsule) 50 mg PO BID [facility] Last Admin: 10/02/20 10:01 Dose: Not Given Documented by: Sodium Chloride (Sodium Chloride Flush 0.9% 10 Ml Syringe) 10 ml IVP PRN PRN PRN Reason: NEEDED PER PROVIDER ORDERS Last Admin: 10/02/20 06:45 Dose: 60 ml Documented by: Sodium Chloride (Sodium Chloride Flush 0.9% 10 Ml Syringe) 10 ml IVP 0100,0900,1700 [facility] Last Admin: 10/02/20 16:35 Dose: 10 ml Documented by: No Known Home Medications 09/15/20 Objective - Vital Signs/Intake & Output Reviewed Vital Signs: Yes Vital Signs: Vital Signs x48h Temp Pulse Resp BP Pulse Ox 10/02/20 04:11 36.6 C 71 18 175/88 H 95 10/02/20 00:55 36.7 C 64 14 172/94 H 96 Intake & Output: Intake & Output 09/29/20 09/30/20 10/01/20 10/02/20 23:59 23:59 23:59 23:59 Intake Total 2643.8 3175.96 4589.797 300 Output Total 2308 3675 52 1305 Balance 335.8 -499.04 -645.203 -1005 - Objective General Appearance: positive: No acute distress, Alert Eyes Bilateral: positive: Normal inspection, Conjunctivae nml ENT: positive: ENT inspection nml Neck: positive: Nml inspection Respiratory: positive: No respiratory distress. negative: Wheezes, Rales Cardiovascular: positive: Regular rate & rhythm, No murmur. negative: Tachycardia Abdomen: positive: No distention, Tenderness (Minimal tenderness in left lower quadrant.), Other (Ostomy in place with output. MARGARETTE drain has been removed.). negative: Non-tender Skin: positive: Dry Extremities: positive: Full ROM, No pedal edema - Lab Results Fish Bones: 10/02/20 06:45 10/02/20 06:45 Other Labs: Lab Results x24hrs 10/02/20 10/02/20 10/02/20 Range/Units 06:45 06:45 05:29 WBC 12.6 H (4.8-10.8) x10^3/uL RBC 4.21 L (4.70-6.10) 10^6/uL Hgb 12.4 L (14.0-18.0) g/dL Hct 37.9 L (42.0-52.0) % MCV 90.0 (80.0-94.0) fL MCH 29.5 (27.0-31.0) pg MCHC 32.7 (32.0-36.0) g/dL RDW 12.2 (12.0-15.0) % Plt Count 367 (130-450) 10^3/uL MPV 10.8 (7.4-11.4) fL Neut # (Auto) 9.7 H (1.5-6.6) 10^3/uL Lymph # (Auto) 1.4 L (1.5-3.5) 10^3/uL [place] # (Auto) 1.0 (0.0-1.0) 10^3/uL Eos # (Auto) 0.2 (0.0-0.7) 10^3/uL Baso # (Auto) 0.1 (0.0-0.1) 10^3/uL Absolute Nucleated RBC 0.00 x10^3/uL Nucleated RBC % 0.0 /100WBC Sodium 142 (135-145) mmol/L Potassium 3.8 (3.5-5.0) mmol/L Chloride 105 (101-111) mmol/L Carbon Dioxide 24 (21-32) mmol/L Anion Gap 13.0 (6-13) BUN 22 H (6-20) mg/dL Creatinine 1.0 (0.6-1.2) mg/dL Estimated GFR (MDRD) 78 L (>89) Glucose 101 H (70-100) mg/dL POC Whole Bld Glucose 144 H (70 - 100) mg/dL Calcium 9.1 (8.5-10.3) mg/dL Phosphorus 3.9 (2.5-4.6) mg/dL Magnesium 1.9 (1.7-2.8) mg/dL 10/02/20 10/01/20 10/01/20 Range/Units 00:59 17:49 11:07 WBC (4.8-10.8) x10^3/uL RBC (4.70-6.10) 10^6/uL Hgb (14.0-18.0) g/dL Hct (42.0-52.0) % MCV (80.0-94.0) fL MCH (27.0-31.0) pg MCHC (32.0-36.0) g/dL RDW (12.0-15.0) % Plt Count (130-450) 10^3/uL MPV (7.4-11.4) fL Neut # (Auto) (1.5-6.6) 10^3/uL Lymph # (Auto) (1.5-3.5) 10^3/uL [place] # (Auto) (0.0-1.0) 10^3/uL Eos # (Auto) (0.0-0.7) 10^3/uL Baso # (Auto) (0.0-0.1) 10^3/uL Absolute Nucleated RBC x10^3/uL Nucleated RBC % /100WBC Sodium (135-145) mmol/L Potassium (3.5-5.0) mmol/L Chloride (101-111) mmol/L Carbon Dioxide (21-32) mmol/L Anion Gap (6-13) BUN (6-20) mg/dL Creatinine (0.6-1.2) mg/dL Estimated GFR (MDRD) (>89) Glucose (70-100) mg/dL POC Whole Bld Glucose 131 H 149 H 142 H (70 - 100) mg/dL Calcium (8.5-10.3) mg/dL Phosphorus (2.5-4.6) mg/dL Magnesium (1.7-2.8) mg/dL ABX Reporting Has patient been on IV antibiotics over the past 48 hours?: Yes Assessment/Plan - Problem List (1) Diverticulitis of colon with perforation Impression: He is now postop day 8 and he continues to improve. White count continues to trend down as low as it has been since admission. He remains on Zosyn IV and the plan is continues in the postop day 10. We will look to advance his diet over next 24 hours given his small bowel obstruction appears to be resolving. Appreciate general surgery input. (2) Small bowel obstruction Impression: This appears to be improving. Although he still has output from the NG tube, he does have output in the ostomy and he has been tolerating clear liquid diet. We will look to remove the NG tube tomorrow. Continue with clears as tolerated. (3) Hypertension Impression: His blood pressure has been elevated and we will start him on amlodipine 5 mg daily.
[2020-10-02] MEDS ORDERED: LACTATED RINGERS 500 ML IV ONE (08:24)
--- NOTE | 2020-10-02 08:29 | PROVIDER PROGRESS NOTE ---
Subjective - Prog Note Date Prog Note Date: 10/02/20 - Subjective Pt reports feeling: Improved (no nausea. minimla discomfort) Objective - Vital Signs/Intake & Output Reviewed Vital Signs: Yes Vital Signs: Vital Signs x48h Temp Pulse Resp BP BP Pulse Ox 10/02/20 08:17 37.1 C 66 16 172/90 H 96 10/02/20 04:11 36.6 C 71 18 175/88 H 95 10/02/20 00:55 36.7 C 64 14 172/94 H 96 Intake & Output: Intake & Output 09/29/20 09/30/20 10/01/20 10/02/20 23:59 23:59 23:59 23:59 Intake Total 2643.8 3175.96 4589.797 470.9 Output Total 2308 3675 5235 1305 Balance 335.8 -499.04 -645.203 -834.1 - Objective General Appearance: positive: Alert ENT: positive: No signs of dehydration Neck: positive: No JVD Respiratory: positive: No respiratory distress Abdomen: positive: Non-tender, No distention, Other (no erythema. stoma less edematous. air in stoma bag. ngt now very thin slight green teja scant serous) - Lab Results Fish Bones: 10/02/20 06:45 10/02/20 06:45 Other Labs: Lab Results x24hrs 10/02/20 10/02/20 10/02/20 Range/Units 06:45 06:45 05:29 WBC 12.6 H (4.8-10.8) x10^3/uL RBC 4.21 L (4.70-6.10) 10^6/uL Hgb 12.4 L (14.0-18.0) g/dL Hct 37.9 L (42.0-52.0) % MCV 90.0 (80.0-94.0) fL MCH 29.5 (27.0-31.0) pg MCHC 32.7 (32.0-36.0) g/dL RDW 12.2 (12.0-15.0) % Plt Count 367 (130-450) 10^3/uL MPV 10.8 (7.4-11.4) fL Neut # (Auto) 9.7 H (1.5-6.6) 10^3/uL Lymph # (Auto) 1.4 L (1.5-3.5) 10^3/uL [place] # (Auto) 1.0 (0.0-1.0) 10^3/uL Eos # (Auto) 0.2 (0.0-0.7) 10^3/uL Baso # (Auto) 0.1 (0.0-0.1) 10^3/uL Absolute Nucleated RBC 0.00 x10^3/uL Nucleated RBC % 0.0 /100WBC Sodium 142 (135-145) mmol/L Potassium 3.8 (3.5-5.0) mmol/L Chloride 105 (101-111) mmol/L Carbon Dioxide 24 (21-32) mmol/L Anion Gap 13.0 (6-13) BUN 22 H (6-20) mg/dL Creatinine 1.0 (0.6-1.2) mg/dL Estimated GFR (MDRD) 78 L (>89) Glucose 101 H (70-100) mg/dL POC Whole Bld Glucose 144 H (70 - 100) mg/dL Calcium 9.1 (8.5-10.3) mg/dL Phosphorus 3.9 (2.5-4.6) mg/dL Magnesium 1.9 (1.7-2.8) mg/dL 10/02/20 10/01/20 10/01/20 Range/Units 00:59 17:49 11:07 WBC (4.8-10.8) x10^3/uL RBC (4.70-6.10) 10^6/uL Hgb (14.0-18.0) g/dL Hct (42.0-52.0) % MCV (80.0-94.0) fL MCH (27.0-31.0) pg MCHC (32.0-36.0) g/dL RDW (12.0-15.0) % Plt Count (130-450) 10^3/uL MPV (7.4-11.4) fL Neut # (Auto) (1.5-6.6) 10^3/uL Lymph # (Auto) (1.5-3.5) 10^3/uL [place] # (Auto) (0.0-1.0) 10^3/uL Eos # (Auto) (0.0-0.7) 10^3/uL Baso # (Auto) (0.0-0.1) 10^3/uL Absolute Nucleated RBC x10^3/uL Nucleated RBC % /100WBC Sodium (135-145) mmol/L Potassium (3.5-5.0) mmol/L Chloride (101-111) mmol/L Carbon Dioxide (21-32) mmol/L Anion Gap (6-13) BUN (6-20) mg/dL Creatinine (0.6-1.2) mg/dL Estimated GFR (MDRD) (>89) Glucose (70-100) mg/dL POC Whole Bld Glucose 131 H 149 H 142 H (70 - 100) mg/dL Calcium (8.5-10.3) mg/dL Phosphorus (2.5-4.6) mg/dL Magnesium (1.7-2.8) mg/dL Assessment/Plan - Problem List (1) Diverticulitis of colon with perforation Impression: ileus improving. plan d/c teja d/c ngt this evening or in am when less green
[2020-10-02] MEDS: MULTIVITAMIN W/MINERALS TABLET PO SCH (10:01)
[2020-10-02] MEDS: amLODIPine 5 MG TABLET PO SCH (10:01)
[2020-10-02] MEDS: PREGABALIN 25 MG CAPSULE PO SCH ×2 (10:01→21:24)
[2020-10-02] MEDS: ENOXAPARIN 40 MG/0.4 ML SYRINGE SUBQ SCH (10:02)
[2020-10-02] MEDS: SODIUM CHLORIDE 0.9% 500 ML IV PRN (14:11)
[2020-10-02] MEDS: FAT EMULSION 20% 250 ML IV SCH (18:44)
[2020-10-02] MEDS: TRACE ELEMENTS IV SCH ×2 (18:45)
[2020-10-02] MEDS: TPN IV SCH ×2 (18:45)
[2020-10-02] MEDS: hydrALAZINE INJ 20 MG/ML VIAL IVP PRN (22:22)
[2020-10-03] MEDS: SODIUM CHLORIDE FLUSH 0.9% 10 ML SYRINGE IVP SCH ×3 (00:05→17:09)
[2020-10-03] MEDS: PIPERACILLIN/TAZOBACTAM 3.375 GM in SODIUM CHLORIDE 0.9% MINIBAG 100 ML IV SCH ×3 (00:47→18:20)
[2020-10-03 05:37] LABS: BASOPHILS # (AUTO) 0.1 10^3/uL (0.0-0.1); BASOPHILS % (AUTO) 0.7 %; EOSINOPHILS # (AUTO) 0.2 10^3/uL (0.0-0.7); EOSINOPHILS % (AUTO) 1.7 %; HCT - HEMATOCRIT 40.9 % (42.0-52.0); HGB - HEMOGLOBIN 13.1 g/dL (14.0-18.0); LYMPHOCYTES # (AUTO) 1.7 10^3/uL (1.5-3.5); LYMPHOCYTES % (AUTO) 14.4 %; MEAN CORPUSCULAR HEMOGLOBIN 29.1 pg (27.0-31.0); MEAN CORPUSCULAR VOLUME 90.9 fL (80.0-94.0); MEAN PLATELET VOLUME 11.3 fL (7.4-11.4); MONOCYTES # (AUTO) 0.9 10^3/uL (0.0-1.0); MONOCYTES % (AUTO) 7.5 %; NEUTROPHILS % (AUTO) 74.5 %; PLT - PLATELET COUNT 370 10^3/uL (130-450); RED CELL DISTRIBUTION WIDTH 12.4 % (12.0-15.0); WHITE BLOOD COUNT 12.1 x10^3/uL (4.8-10.8)
[2020-10-03 06:19] LABS: CALCIUM 9.5 mg/dL (8.5-10.3); CREATININE 0.9 mg/dL (0.6-1.2); PHOSPHORUS 3.8 mg/dL (2.5-4.6); POTASSIUM 3.8 mmol/L (3.5-5.0)
[2020-10-03] MEDS: PANTOPRAZOLE 40 MG VIAL IVP SCH (06:48)
[2020-10-03] MEDS: PREGABALIN 25 MG CAPSULE PO SCH ×2 (08:11→20:42)
[2020-10-03] MEDS: amLODIPine 5 MG TABLET PO SCH (08:11)
[2020-10-03] MEDS: ENOXAPARIN 40 MG/0.4 ML SYRINGE SUBQ SCH (08:11)
[2020-10-03] MEDS: MULTIVITAMIN W/MINERALS TABLET PO SCH (08:12)
[2020-10-03] MEDS ORDERED: LACTATED RINGERS 1,000 ML IV ONE (08:31)
--- NOTE | 2020-10-03 09:21 | PROVIDER PROGRESS NOTE ---
Subjective - Prog Note Date Prog Note Date: 10/03/20 - Subjective Subjective: He is to report feeling better. Still has mild abdominal pain. He has had output from the ostomy has noticed gas in the ostomy bag. He is happy the NG tube is out. Reports no nausea or vomiting. Tolerating clears. Current Medications - Current Medications Current Medications: Active Medications Acetaminophen (Acetaminophen 325 Mg Tablet) 650 mg PO Q4HR PRN PRN Reason: Pain 1 to 4 Last Admin: 09/29/20 09:38 Dose: 650 mg Documented by: Amlodipine Besylate (Amlodipine 5 Mg Tablet) 5 mg PO DAILY [facility] Last Admin: 10/03/20 08:11 Dose: 5 mg Documented by: Enoxaparin Sodium (Enoxaparin 40 Mg/0.4 Ml Syringe) 40 mg SUBQ DAILY [facility] Last Admin: 10/03/20 08:11 Dose: 40 mg Documented by: Hydralazine HCl (Hydralazine Inj 20 Mg/Ml Vial) 10 mg IVP Q4H PRN PRN Reason: PRN if SBP>170 Last Admin: 10/02/20 22:22 Dose: 10 mg Documented by: Hydromorphone HCl (Hydromorphone 1 Mg/Ml Carpuject) 1 mg IVP Q2HR PRN PRN Reason: PAIN Last Admin: 09/28/20 01:02 Dose: 1 mg Documented by: Piperacillin Sod/Tazobactam (Sod 3.375 gm/ Sodium Chloride) 100 mls @ 25 mls/hr IV Q8H [facility] Last Infusion: 10/03/20 12:55 Dose: 25 mls/hr Documented by: Fat Emulsion Intravenous (Intralipid 20%) 250 mls @ 21 mls/hr IV TPN/PPN [facility] Last Infusion: 10/03/20 06:54 Dose: Infused Documented by: TRACE ELEMENTS 1 ml/ Amino Ac/ (Electrol/Dextrose/Calcium) 2,001 mls @ 83.375 mls/hr IV TPN/PPN [facility] Last Infusion: 10/03/20 12:55 Dose: 83.4 mls/hr Documented by: Sodium Chloride (Normal Saline 0.9%) 500 mls @ 20 mls/hr IV Q24H PRN PRN Reason: TKO RATE Last Admin: 10/02/20 14:11 Dose: 20 mls/hr Documented by: Acetaminophen (Ofirmev) 100 mls @ 400 mls/hr IV Q6HR PRN PRN Reason: PAIN Last Infusion: 10/02/20 21:40 Dose: Infused Documented by: Metoclopramide HCl (Metoclopramide 10 Mg/2 Ml Vial) 5 mg IVP Q6HR PRN PRN Reason: Nausea / Vomiting Last Admin: 09/30/20 09:03 Dose: 5 mg Documented by: Multivitamins/Minerals (Multivitamin W/Minerals Tablet) 1 tab PO DAILYWM [facility] Last Admin: 10/03/20 08:12 Dose: Not Given Documented by: Ondansetron HCl (Ondansetron 4 Mg/2 Ml Vial) 4 mg IVP Q6HR PRN PRN Reason: Nausea / Vomiting Last Admin: 10/01/20 16:21 Dose: 4 mg Documented by: Oxycodone HCl (Oxycodone 5 Mg Tablet) 5 mg PO Q4HR PRN PRN Reason: Pain 5 to 7 Last Admin: 09/28/20 08:26 Dose: 5 mg Documented by: Pantoprazole Sodium (Pantoprazole 40 Mg Vial) 40 mg IVP QDAC [facility] Last Admin: 10/03/20 06:48 Dose: 40 mg Documented by: Pregabalin (Pregabalin 25 Mg Capsule) 50 mg PO BID [facility] Last Admin: 10/03/20 08:11 Dose: 50 mg Documented by: Sodium Chloride (Sodium Chloride Flush 0.9% 10 Ml Syringe) 10 ml IVP PRN PRN PRN Reason: NEEDED PER PROVIDER ORDERS Last Admin: 10/02/20 06:45 Dose: 60 ml Documented by: Sodium Chloride (Sodium Chloride Flush 0.9% 10 Ml Syringe) 10 ml IVP 0100,0900,1700 [facility] Last Admin: 10/03/20 08:12 Dose: Not Given Documented by: No Known Home Medications 09/15/20 Objective - Vital Signs/Intake & Output Reviewed Vital Signs: Yes Vital Signs: Vital Signs x48h Temp Pulse Resp BP Pulse Ox 10/03/20 07:50 36.7 C 69 16 156/93 H 98 10/03/20 04:09 37.1 C 72 18 157/87 H 96 Intake & Output: Intake & Output 09/30/20 10/01/20 10/02/2021 23:59 23:59 23:59 23:59 Intake Total 3175.96 4589.797 3536.663 350 Output Total 1425 7997 5997 6304 Balance -499.04 -645.203 81.663 -1925 - Objective General Appearance: positive: No acute distress, Alert Eyes Bilateral: positive: Normal inspection, Conjunctivae nml ENT: positive: ENT inspection nml Neck: positive: Nml inspection Respiratory: positive: No respiratory distress. negative: Wheezes, Rales Cardiovascular: positive: Regular rate & rhythm, No murmur. negative: Systolic murmur Abdomen: positive: Non-tender, Nml bowel sounds, No distention, Other (Ostomy in place with output noted.). negative: Tenderness, Guarding, Rebound Skin: positive: Warm, Dry Extremities: positive: No pedal edema - Lab Results Fish Bones: 10/03/20 05:00 10/03/20 05:00 Other Labs: Lab Results x24hrs 10/03/20 10/03/20 Range/Units 05:00 05:00 WBC 12.1 H (4.8-10.8) x10^3/uL RBC 4.50 L (4.70-6.10) 10^6/uL Hgb 13.1 L (14.0-18.0) g/dL Hct 40.9 L (42.0-52.0) % MCV 90.9 (80.0-94.0) fL MCH 29.1 (27.0-31.0) pg MCHC 32.0 (32.0-36.0) g/dL RDW 12.4 (12.0-15.0) % Plt Count 370 (130-450) 10^3/uL MPV 11.3 (7.4-11.4) fL Neut # (Auto) 9.0 H (1.5-6.6) 10^3/uL Lymph # (Auto) 1.7 (1.5-3.5) 10^3/uL [place] # (Auto) 0.9 (0.0-1.0) 10^3/uL Eos # (Auto) 0.2 (0.0-0.7) 10^3/uL Baso # (Auto) 0.1 (0.0-0.1) 10^3/uL Absolute Nucleated RBC 0.00 x10^3/uL Nucleated RBC % 0.0 /100WBC Sodium 139 (135-145) mmol/L Potassium 3.8 (3.5-5.0) mmol/L Chloride 105 (101-111) mmol/L Carbon Dioxide 25 (21-32) mmol/L Anion Gap 9.0 (6-13) BUN 23 H (6-20) mg/dL Creatinine 0.9 (0.6-1.2) mg/dL Estimated GFR (MDRD) 88 L (>89) Glucose 137 H (70-100) mg/dL Calcium 9.5 (8.5-10.3) mg/dL Phosphorus 3.8 (2.5-4.6) mg/dL Magnesium 2.0 (1.7-2.8) mg/dL ABX Reporting Has patient been on IV antibiotics over the past 48 hours?: Yes Assessment/Plan - Problem List (1) Diverticulitis of colon with perforation Impression: He is now postop day 9 and he continues to do well. I count continues to improve on a daily basis. Suspect more over the last day of Zosyn IV this will be 10 days postop. We will look to advance his diet now that his obstruction has resolved. (2) Small bowel obstruction Impression: This continues to improve. NG tube was removed today and he has been tolerating a clear liquid diet. We will look to advance his diet later on this evening versus tomorrow morning. We will discussed with general surgery but suspect he would likely be able to be discharged home over the next 24 to 48 hours. (3) Hypertension Impression: His blood pressure is better controlled today after the initiation of amlodipine. We will likely discharge him on this and asked him to follow-up with his primary care provider.
--- NOTE | 2020-10-03 12:10 | PROVIDER PROGRESS NOTE ---
Subjective - Prog Note Date Prog Note Date: 10/03/20 - Subjective Pt reports feeling: Improved (intestinal function improved. no abdominal discomfort) Objective - Vital Signs/Intake & Output Vital Signs: Vital Signs x48h Temp Pulse Resp BP Pulse Ox 10/03/20 07:50 36.7 C 69 16 156/93 H 98 10/03/20 04:09 37.1 C 72 18 157/87 H 96 Intake & Output: Intake & Output 09/30/20 10/01/20 10/02/20 10/03/20 23:59 23:59 23:59 23:59 Intake Total 3175.96 4589.797 3536.663 2404.853 Output Total 3675 5235 3455 2975 Balance -499.04 -645.203 81.663 -570.147 - Objective General Appearance: positive: No acute distress, Alert ENT: positive: No signs of dehydration Neck: positive: No JVD Respiratory: positive: No respiratory distress Abdomen: positive: Non-tender, No distention, Other (ngt thin yellow) - Lab Results Fish Bones: 10/03/20 05:00 10/03/20 05:00 Other Labs: Lab Results x24hrs 10/03/20 10/03/20 Range/Units 05:00 05:00 WBC 12.1 H (4.8-10.8) x10^3/uL RBC 4.50 L (4.70-6.10) 10^6/uL Hgb 13.1 L (14.0-18.0) g/dL Hct 40.9 L (42.0-52.0) % MCV 90.9 (80.0-94.0) fL MCH 29.1 (27.0-31.0) pg MCHC 32.0 (32.0-36.0) g/dL RDW 12.4 (12.0-15.0) % Plt Count 370 (130-450) 10^3/uL MPV 11.3 (7.4-11.4) fL Neut # (Auto) 9.0 H (1.5-6.6) 10^3/uL Lymph # (Auto) 1.7 (1.5-3.5) 10^3/uL [place] # (Auto) 0.9 (0.0-1.0) 10^3/uL Eos # (Auto) 0.2 (0.0-0.7) 10^3/uL Baso # (Auto) 0.1 (0.0-0.1) 10^3/uL Absolute Nucleated RBC 0.00 x10^3/uL Nucleated RBC % 0.0 /100WBC Sodium 139 (135-145) mmol/L Potassium 3.8 (3.5-5.0) mmol/L Chloride 105 (101-111) mmol/L Carbon Dioxide 25 (21-32) mmol/L Anion Gap 9.0 (6-13) BUN 23 H (6-20) mg/dL Creatinine 0.9 (0.6-1.2) mg/dL Estimated GFR (MDRD) 88 L (>89) Glucose 137 H (70-100) mg/dL Calcium 9.5 (8.5-10.3) mg/dL Phosphorus 3.8 (2.5-4.6) mg/dL Magnesium 2.0 (1.7-2.8) mg/dL Assessment/Plan - Problem List (1) Diverticulitis of colon with perforation Impression: ileus/ swelling distal ileum improved. d/c ngt diet clears ivf bolus for elevated bun
[2020-10-03] MEDS: SODIUM CHLORIDE FLUSH 0.9% 10 ML SYRINGE IVP PRN (14:32)
[2020-10-03] MEDS: FAT EMULSION 20% 250 ML IV SCH (19:29)
[2020-10-03] MEDS: TPN IV SCH ×2 (19:29)
[2020-10-03] MEDS: TRACE ELEMENTS IV SCH ×2 (19:29)
[2020-10-04] MEDS: PIPERACILLIN/TAZOBACTAM 3.375 GM in SODIUM CHLORIDE 0.9% MINIBAG 100 ML IV SCH ×3 (00:39→17:15)
[2020-10-04] MEDS: SODIUM CHLORIDE FLUSH 0.9% 10 ML SYRINGE IVP SCH ×3 (00:40→21:23)
[2020-10-04] MEDS: SODIUM CHLORIDE 0.9% 500 ML IV PRN (01:33)
[2020-10-04 05:44] LABS: BASOPHILS # (AUTO) 0.1 10^3/uL (0.0-0.1); BASOPHILS % (AUTO) 0.7 %; EOSINOPHILS # (AUTO) 0.2 10^3/uL (0.0-0.7); HCT - HEMATOCRIT 39.7 % (42.0-52.0); HGB - HEMOGLOBIN 12.8 g/dL (14.0-18.0); LYMPHOCYTES # (AUTO) 2.2 10^3/uL (1.5-3.5); LYMPHOCYTES % (AUTO) 19.6 %; MEAN CORPUSCULAR HEMOGLOBIN 29.2 pg (27.0-31.0); MEAN CORPUSCULAR HGB CONC 32.2 g/dL (32.0-36.0); MEAN CORPUSCULAR VOLUME 90.6 fL (80.0-94.0); MEAN PLATELET VOLUME 11.3 fL (7.4-11.4); MONOCYTES # (AUTO) 0.9 10^3/uL (0.0-1.0); MONOCYTES % (AUTO) 8.3 %; NEUTROPHILS # (AUTO) 7.5 10^3/uL (1.5-6.6); NEUTROPHILS % (AUTO) 67.4 %; PLT - PLATELET COUNT 331 10^3/uL (130-450); RED BLOOD COUNT 4.38 10^6/uL (4.70-6.10); RED CELL DISTRIBUTION WIDTH 12.6 % (12.0-15.0); WHITE BLOOD COUNT 11.2 x10^3/uL (4.8-10.8)
[2020-10-04] MEDS: PANTOPRAZOLE 40 MG VIAL IVP SCH (05:54)
[2020-10-04 05:59] LABS: CALCIUM 9.3 mg/dL (8.5-10.3); CREATININE 0.9 mg/dL (0.6-1.2); PHOSPHORUS 3.9 mg/dL (2.5-4.6); POTASSIUM 3.9 mmol/L (3.5-5.0)
[2020-10-04] MEDS: amLODIPine 5 MG TABLET PO SCH (08:13)
[2020-10-04] MEDS: MULTIVITAMIN W/MINERALS TABLET PO SCH (08:13)
[2020-10-04] MEDS: PREGABALIN 25 MG CAPSULE PO SCH (08:13)
[2020-10-04] MEDS: ENOXAPARIN 40 MG/0.4 ML SYRINGE SUBQ SCH (08:14)
[2020-10-04] MEDS: LACTATED RINGERS 1,000 ML IV SCH ×2 (08:15→21:23)
--- NOTE | 2020-10-04 10:19 | PROVIDER PROGRESS NOTE ---
Subjective - Prog Note Date Prog Note Date: 10/04/20 - Subjective Subjective: Reports feeling well. Was able to tolerate a regular diet for dinner yesterday although did not eat very much. Reports no nausea or vomiting. States his pain is controlled. He has noticed an increase in the output from his ostomy. Current Medications - Current Medications Current Medications: Active Medications Acetaminophen (Acetaminophen 325 Mg Tablet) 650 mg PO Q4HR PRN PRN Reason: Pain 1 to 4 Last Admin: 09/29/20 09:38 Dose: 650 mg Documented by: Amlodipine Besylate (Amlodipine 5 Mg Tablet) 5 mg PO DAILY [facility] Last Admin: 10/04/20 08:13 Dose: 5 mg Documented by: Enoxaparin Sodium (Enoxaparin 40 Mg/0.4 Ml Syringe) 40 mg SUBQ DAILY [facility] Last Admin: 10/04/20 08:14 Dose: Not Given Documented by: Hydralazine HCl (Hydralazine Inj 20 Mg/Ml Vial) 10 mg IVP Q4H PRN PRN Reason: PRN if SBP>170 Last Admin: 10/02/20 22:22 Dose: 10 mg Documented by: Hydromorphone HCl (Hydromorphone 1 Mg/Ml Carpuject) 1 mg IVP Q2HR PRN PRN Reason: PAIN Last Admin: 09/28/20 01:02 Dose: 1 mg Documented by: Piperacillin Sod/Tazobactam (Sod 3.375 gm/ Sodium Chloride) 100 mls @ 25 mls/hr IV Q8H [facility] Last Infusion: 10/04/20 04:57 Dose: Infused Documented by: Fat Emulsion Intravenous (Intralipid 20%) 250 mls @ 21 mls/hr IV TPN/PPN [facility] Stop: 10/04/20 18:59 Last Infusion: 10/04/20 07:30 Dose: Infused Documented by: TRACE ELEMENTS 1 ml/ Amino Ac/ (Electrol/Dextrose/Calcium) 2,001 mls @ 83.375 mls/hr IV TPN/PPN [facility] Stop: 10/04/20 18:59 Last Admin: 10/03/20 19:29 Dose: 83.4 mls/hr Documented by: Sodium Chloride (Normal Saline 0.9%) 500 mls @ 20 mls/hr IV Q24H PRN PRN Reason: TKO RATE Last Infusion: 10/04/20 05:18 Dose: 0 mls/hr Documented by: Lactated Ringer's (Lr) 1,000 mls @ 500 mls/hr IV BID [facility] Last Admin: 10/04/20 08:15 Dose: 500 mls/hr Documented by: Metoclopramide HCl (Metoclopramide 10 Mg/2 Ml Vial) 5 mg IVP Q6HR PRN PRN Reason: Nausea / Vomiting Last Admin: 09/30/20 09:03 Dose: 5 mg Documented by: Multivitamins/Minerals (Multivitamin W/Minerals Tablet) 1 tab PO DAILYWM [facility] Last Admin: 10/04/20 08:13 Dose: 1 tab Documented by: Ondansetron HCl (Ondansetron 4 Mg/2 Ml Vial) 4 mg IVP Q6HR PRN PRN Reason: Nausea / Vomiting Last Admin: 10/01/20 16:21 Dose: 4 mg Documented by: Oxycodone HCl (Oxycodone 5 Mg Tablet) 5 mg PO Q4HR PRN PRN Reason: Pain 5 to 7 Last Admin: 09/28/20 08:26 Dose: 5 mg Documented by: Pantoprazole Sodium (Pantoprazole 40 Mg Tablet) 40 mg PO QDAC [facility] Pregabalin (Pregabalin 25 Mg Capsule) 25 mg PO DAILY [facility] Sodium Chloride (Sodium Chloride Flush 0.9% 10 Ml Syringe) 10 ml IVP PRN PRN PRN Reason: NEEDED PER PROVIDER ORDERS Last Admin: 10/03/20 14:32 Dose: 10 ml Documented by: Sodium Chloride (Sodium Chloride Flush 0.9% 10 Ml Syringe) 10 ml IVP 0100,0900,1700 [facility] Last Admin: 10/04/20 00:40 Dose: 10 ml Documented by: No Known Home Medications 09/15/20 Objective - Vital Signs/Intake & Output Reviewed Vital Signs: Yes Vital Signs: Vital Signs x48h Temp Pulse Resp BP Pulse Ox 10/04/20 07:47 37.3 C 72 18 137/80 H 96 10/04/20 05:00 37.1 C 70 18 158/90 H 96 Intake & Output: Intake & Output 10/01/20 10/02/20 10/03/20 10/04/20 23:59 23:59 23:59 23:59 Intake Total 4589.797 3536.663 5903.930 1039 Output Total 5235 3455 3900 3550 Balance -645.203 81.663 6628.931 -2511 - Objective General Appearance: positive: No acute distress, Alert Eyes Bilateral: positive: Normal inspection, Conjunctivae nml ENT: positive: ENT inspection nml Neck: positive: Nml inspection Respiratory: positive: No respiratory distress Cardiovascular: positive: Regular rate & rhythm. negative: Tachycardia Abdomen: positive: No distention, Other (Ostomy bag with a large amount of dark green liquid present.). negative: Tenderness, Guarding, Rebound Skin: positive: Warm, Dry - Lab Results Fish Bones: 10/04/20 05:10 10/04/20 05:10 Other Labs: Lab Results x24hrs 10/04/20 10/04/20 Range/Units 05:10 05:10 WBC 11.2 H (4.8-10.8) x10^3/uL RBC 4.38 L (4.70-6.10) 10^6/uL Hgb 12.8 L (14.0-18.0) g/dL Hct 39.7 L (42.0-52.0) % MCV 90.6 (80.0-94.0) fL MCH 29.2 (27.0-31.0) pg MCHC 32.2 (32.0-36.0) g/dL RDW 12.6 (12.0-15.0) % Plt Count 331 (130-450) 10^3/uL MPV 11.3 (7.4-11.4) fL Neut # (Auto) 7.5 H (1.5-6.6) 10^3/uL Lymph # (Auto) 2.2 (1.5-3.5) 10^3/uL [place] # (Auto) 0.9 (0.0-1.0) 10^3/uL Eos # (Auto) 0.2 (0.0-0.7) 10^3/uL Baso # (Auto) 0.1 (0.0-0.1) 10^3/uL Absolute Nucleated RBC 0.00 x10^3/uL Nucleated RBC % 0.0 /100WBC Sodium 136 (135-145) mmol/L Potassium 3.9 (3.5-5.0) mmol/L Chloride 103 (101-111) mmol/L Carbon Dioxide 23 (21-32) mmol/L Anion Gap 10.0 (6-13) BUN 27 H (6-20) mg/dL Creatinine 0.9 (0.6-1.2) mg/dL Estimated GFR (MDRD) 88 L (>89) Glucose 120 H (70-100) mg/dL Calcium 9.3 (8.5-10.3) mg/dL Phosphorus 3.9 (2.5-4.6) mg/dL Magnesium 2.0 (1.7-2.8) mg/dL ABX Reporting Has patient been on IV antibiotics over the past 48 hours?: Yes Assessment/Plan - Problem List (1) Diverticulitis of colon with perforation Impression: He is now postop day 10. Clinically he is doing quite well and his white count continues to decrease on a daily basis. The plan was to continue Zosyn until postop day 10 and will discuss with general surgery today regarding discontinuation of this. Continue with regular diet as tolerated. (2) High output ileostomy Impression: He is having a large amount of output from his ileostomy now. His BUN is slightly increased again this morning. Agree with the administration of IV fluids as been ordered by general surgery. We will check for C. difficile given he has been on antibiotics. If this is negative and he continues to have a large amount of output then we will likely start him on Imodium. (3) Hypertension Impression: His blood pressure is better controlled on amlodipine. We will look to discharge him on this. (4) Small bowel obstruction Impression: This has now resolved.
--- NOTE | 2020-10-04 12:51 | PROVIDER PROGRESS NOTE ---
Subjective - Prog Note Date Prog Note Date: 10/04/20 - Subjective Pt reports feeling: Improved (tolerating diet well no complaints) Objective - Vital Signs/Intake & Output Vital Signs: Vital Signs x48h Temp Pulse Resp BP Pulse Ox 10/04/20 07:47 37.3 C 72 18 137/80 H 96 10/04/20 05:00 37.1 C 70 18 158/90 H 96 Intake & Output: Intake & Output 10/01/20 10/02/20 10/03/20 10/04/20 23:59 23:59 23:59 23:59 Intake Total 4589.797 3536.663 5903.930 2039 Output Total 5272 3455 3900 3810 Balance -645.203 81.663 3 -1341 - Objective General Appearance: positive: No acute distress, Alert Eyes Bilateral: positive: Normal inspection, PERRL ENT: positive: No signs of dehydration Neck: positive: No JVD Respiratory: positive: No respiratory distress Abdomen: positive: Non-tender, No distention - Lab Results Fish Bones: 10/04/20 05:10 10/04/20 05:10 Other Labs: Lab Results x24hrs 10/04/20 10/04/20 Range/Units 05:10 05:10 WBC 11.2 H (4.8-10.8) x10^3/uL RBC 4.38 L (4.70-6.10) 10^6/uL Hgb 12.8 L (14.0-18.0) g/dL Hct 39.7 L (42.0-52.0) % MCV 90.6 (80.0-94.0) fL MCH 29.2 (27.0-31.0) pg MCHC 32.2 (32.0-36.0) g/dL RDW 12.6 (12.0-15.0) % Plt Count 331 (130-450) 10^3/uL MPV 11.3 (7.4-11.4) fL Neut # (Auto) 7.5 H (1.5-6.6) 10^3/uL Lymph # (Auto) 2.2 (1.5-3.5) 10^3/uL [place] # (Auto) 0.9 (0.0-1.0) 10^3/uL Eos # (Auto) 0.2 (0.0-0.7) 10^3/uL Baso # (Auto) 0.1 (0.0-0.1) 10^3/uL Absolute Nucleated RBC 0.00 x10^3/uL Nucleated RBC % 0.0 /100WBC Sodium 136 (135-145) mmol/L Potassium 3.9 (3.5-5.0) mmol/L Chloride 103 (101-111) mmol/L Carbon Dioxide 23 (21-32) mmol/L Anion Gap 10.0 (6-13) BUN 27 H (6-20) mg/dL Creatinine 0.9 (0.6-1.2) mg/dL Estimated GFR (MDRD) 88 L (>89) Glucose 120 H (70-100) mg/dL Calcium 9.3 (8.5-10.3) mg/dL Phosphorus 3.9 (2.5-4.6) mg/dL Magnesium 2.0 (1.7-2.8) mg/dL Assessment/Plan - Problem List (1) Diverticulitis of colon with perforation Impression: doing well. fluid bolus for high ileostomy output and bun home soon with picc line in place he may need periodic ivf as an outpatient
[2020-10-04] MEDS: LOPERAMIDE 2 MG CAPSULE PO PRN (14:59)
[2020-10-05] MEDS: SODIUM CHLORIDE FLUSH 0.9% 10 ML SYRINGE IVP SCH ×3 (00:04→20:26)
[2020-10-05] MEDS: LOPERAMIDE 2 MG CAPSULE PO PRN ×3 (00:35→14:56)
[2020-10-05] MEDS: PANTOPRAZOLE 40 MG TABLET PO SCH (06:00)
[2020-10-05 06:08] LABS: BASOPHILS # (AUTO) 0.1 10^3/uL (0.0-0.1); BASOPHILS % (AUTO) 0.9 %; EOSINOPHILS # (AUTO) 0.3 10^3/uL (0.0-0.7); EOSINOPHILS % (AUTO) 2.1 %; HCT - HEMATOCRIT 40.3 % (42.0-52.0); HGB - HEMOGLOBIN 13.1 g/dL (14.0-18.0); LYMPHOCYTES # (AUTO) 2.2 10^3/uL (1.5-3.5); LYMPHOCYTES % (AUTO) 18.8 %; MEAN CORPUSCULAR HEMOGLOBIN 29.5 pg (27.0-31.0); MEAN CORPUSCULAR HGB CONC 32.5 g/dL (32.0-36.0); MEAN CORPUSCULAR VOLUME 90.8 fL (80.0-94.0); MEAN PLATELET VOLUME 11.2 fL (7.4-11.4); MONOCYTES # (AUTO) 0.8 10^3/uL (0.0-1.0); NEUTROPHILS # (AUTO) 8.1 10^3/uL (1.5-6.6); NEUTROPHILS % (AUTO) 69.1 %; PLT - PLATELET COUNT 322 10^3/uL (130-450); RED BLOOD COUNT 4.44 10^6/uL (4.70-6.10); RED CELL DISTRIBUTION WIDTH 12.4 % (12.0-15.0); WHITE BLOOD COUNT 11.7 x10^3/uL (4.8-10.8)
[2020-10-05 06:21] LABS: CALCIUM 9.3 mg/dL (8.5-10.3); CREATININE 0.9 mg/dL (0.6-1.2); PHOSPHORUS 3.4 mg/dL (2.5-4.6)
[2020-10-05] MEDS: PREGABALIN 25 MG CAPSULE PO SCH (08:57)
[2020-10-05] MEDS: MULTIVITAMIN W/MINERALS TABLET PO SCH (08:57)
[2020-10-05] MEDS: amLODIPine 5 MG TABLET PO SCH (08:58)
[2020-10-05] MEDS: ENOXAPARIN 40 MG/0.4 ML SYRINGE SUBQ SCH (08:58)
[2020-10-05] MEDS: LACTATED RINGERS 1,000 ML IV SCH ×2 (09:20→20:26)
--- NOTE | 2020-10-05 12:20 | PROVIDER PROGRESS NOTE ---
Subjective - Prog Note Date Prog Note Date: 10/05/20 - Subjective Subjective: Feels well. Pain is controlled. He has had decreased output in his ostomy with the Imodium. Current Medications - Current Medications Current Medications: Active Medications Acetaminophen (Acetaminophen 325 Mg Tablet) 650 mg PO Q4HR PRN PRN Reason: Pain 1 to 4 Last Admin: 09/29/20 09:38 Dose: 650 mg Documented by: Amlodipine Besylate (Amlodipine 5 Mg Tablet) 5 mg PO DAILY [facility] Last Admin: 10/05/20 08:58 Dose: 5 mg Documented by: Enoxaparin Sodium (Enoxaparin 40 Mg/0.4 Ml Syringe) 40 mg SUBQ DAILY [facility] Last Admin: 10/05/20 08:58 Dose: Not Given Documented by: Hydralazine HCl (Hydralazine Inj 20 Mg/Ml Vial) 10 mg IVP Q4H PRN PRN Reason: PRN if SBP>170 Last Admin: 10/02/20 22:22 Dose: 10 mg Documented by: Hydromorphone HCl (Hydromorphone 1 Mg/Ml Carpuject) 1 mg IVP Q2HR PRN PRN Reason: PAIN Last Admin: 09/28/20 01:02 Dose: 1 mg Documented by: Sodium Chloride (Normal Saline 0.9%) 500 mls @ 20 mls/hr IV Q24H PRN PRN Reason: TKO RATE Last Infusion: 10/04/20 17:15 Dose: Infused Documented by: Lactated Ringer's (Lr) 1,000 mls @ 500 mls/hr IV BID [facility] Last Infusion: 10/05/20 11:41 Dose: Infused Documented by: Loperamide HCl (Loperamide 2 Mg Capsule) 2 mg PO QID PRN PRN Reason: Diarrhea Last Admin: 10/05/20 08:57 Dose: 2 mg Documented by: Metoclopramide HCl (Metoclopramide 10 Mg/2 Ml Vial) 5 mg IVP Q6HR PRN PRN Reason: Nausea / Vomiting Last Admin: 09/30/20 09:03 Dose: 5 mg Documented by: Multivitamins/Minerals (Multivitamin W/Minerals Tablet) 1 tab PO DAILYWM [facility] Last Admin: 10/05/20 08:57 Dose: 1 tab Documented by: Ondansetron HCl (Ondansetron 4 Mg/2 Ml Vial) 4 mg IVP Q6HR PRN PRN Reason: Nausea / Vomiting Last Admin: 10/01/20 16:21 Dose: 4 mg Documented by: Oxycodone HCl (Oxycodone 5 Mg Tablet) 5 mg PO Q4HR PRN PRN Reason: Pain 5 to 7 Last Admin: 09/28/20 08:26 Dose: 5 mg Documented by: Pantoprazole Sodium (Pantoprazole 40 Mg Tablet) 40 mg PO QDAC [facility] Last Admin: 10/05/20 06:00 Dose: 40 mg Documented by: Pregabalin (Pregabalin 25 Mg Capsule) 25 mg PO DAILY [facility] Last Admin: 10/05/20 08:57 Dose: 25 mg Documented by: Sodium Chloride (Sodium Chloride Flush 0.9% 10 Ml Syringe) 10 ml IVP PRN PRN PRN Reason: NEEDED PER PROVIDER ORDERS Last Admin: 10/03/20 14:32 Dose: 10 ml Documented by: Sodium Chloride (Sodium Chloride Flush 0.9% 10 Ml Syringe) 10 ml IVP 0100,0900,1700 [facility] Last Admin: 10/05/20 09:20 Dose: 10 ml Documented by: No Known Home Medications 09/15/20 Objective - Vital Signs/Intake & Output Reviewed Vital Signs: Yes Vital Signs: Vital Signs x48h Temp Pulse Resp BP Pulse Ox 10/05/20 07:43 37.0 C 67 17 116/74 95 10/05/20 06:07 37.1 C 72 15 151/81 H 98 Intake & Output: Intake & Output 10/02/20 10/03/20 10/04/20 10/05/20 23:59 23:59 23:59 23:59 Intake Total 3536.663 5903.930 4840 2610 Output Total 3455 3900 5980 1770 Balance 81.663 2003.930 -1140 840 - Objective General Appearance: positive: No acute distress, Alert Eyes Bilateral: positive: Normal inspection, Conjunctivae nml ENT: positive: ENT inspection nml Neck: positive: Nml inspection Respiratory: positive: No respiratory distress Abdomen: positive: Non-tender, No distention, Other (Ostomy with brown liquid output.). negative: Tenderness Skin: positive: Warm, Dry - Lab Results Fish Bones: 10/06/20 04:56 10/06/20 04:56 Other Labs: Lab Results x24hrs 10/05/20 10/05/20 10/04/20 Range/Units 06:00 06:00 11:25 WBC 11.7 H (4.8-10.8) x10^3/uL RBC 4.44 L (4.70-6.10) 10^6/uL Hgb 13.1 L (14.0-18.0) g/dL Hct 40.3 L (42.0-52.0) % MCV 90.8 (80.0-94.0) fL MCH 29.5 (27.0-31.0) pg MCHC 32.5 (32.0-36.0) g/dL RDW 12.4 (12.0-15.0) % Plt Count 322 (130-450) 10^3/uL MPV 11.2 (7.4-11.4) fL Neut # (Auto) 8.1 H (1.5-6.6) 10^3/uL Lymph # (Auto) 2.2 (1.5-3.5) 10^3/uL [place] # (Auto) 0.8 (0.0-1.0) 10^3/uL Eos # (Auto) 0.3 (0.0-0.7) 10^3/uL Baso # (Auto) 0.1 (0.0-0.1) 10^3/uL Absolute Nucleated RBC 0.00 x10^3/uL Nucleated RBC % 0.0 /100WBC Sodium 135 (135-145) mmol/L Potassium 4.0 (3.5-5.0) mmol/L Chloride 103 (101-111) mmol/L Carbon Dioxide 25 (21-32) mmol/L Anion Gap 7.0 (6-13) BUN 26 H (6-20) mg/dL Creatinine 0.9 (0.6-1.2) mg/dL Estimated GFR (MDRD) 88 L (>89) Glucose 98 (70-100) mg/dL Calcium 9.3 (8.5-10.3) mg/dL Phosphorus 3.4 (2.5-4.6) mg/dL Magnesium 2.0 (1.7-2.8) mg/dL Stl C. diff Tox B Gene NEGATIVE (NEGATIVE) ABX Reporting Has patient been on IV antibiotics over the past 48 hours?: No Assessment/Plan - Problem List (1) Diverticulitis of colon with perforation Impression: He is now postop day 11. Antibiotics were discontinued yesterday. His white count is slightly increased today but overall stable. He has been tolerating a diet and his pain is well controlled. (2) High output ileostomy Impression: Although this has improved, he still has large amount of output. C. difficile was negative. We will continue with Imodium as needed which has helped. Surgery is recommending to observe him over the weekend to continue with IV hydration and to set up outpatient IV fluids. (3) Hypertension Impression: His blood pressure is better controlled on amlodipine. (4) Small bowel obstruction Impression: This has resolved and he is now tolerating a diet.
--- NOTE | 2020-10-05 16:31 | PROVIDER PROGRESS NOTE ---
Progress Note Subjective Patient postoperative day #11 status post below listed procedure. Laparoscopic intervention. Postoperative course complicated by ileus and partial obstruction secondary to diffuse enteritis. Much improved. Antibiotics have been discontinued. Status post below listed procedure. Procedure Performed: 1. Diagnostic laparoscopy 2. Laparoscopic adhesiolysis, dense and lengthy 3. Laparoscopic anterior resection (7cm anastomosis) 4. Laparoscopic splenic flexure mobilization 5. Rigid proctoscopy 6. Laparoscopic loop ileostomy 7. Tap block per anesthesia 8. Drainage of pelvic abscess 9. Abdominal washout 10. Sampling of pelvic abscess 11. 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 Drain placement 14. Primary umbilical hernia repair Objective Afebrile hemodynamically acceptable General Appearance: positive: No acute distress Eyes Bilateral: positive: Normal inspection ENT: positive: ENT inspection nml Neck: positive: Nml inspection Respiratory: positive: Chest non-tender, No respiratory distress, Breath sounds nml. negative: Wheezes, Rales, Rhonchi Cardiovascular: positive: Regular rate & rhythm Abdomen: positive: No distention, Other. negative: Guarding, Rebound Extremities: positive: Non-tender, Full ROM, Nml appearance Neurologic/Psychiatric: positive: Oriented x3, CN's nml (2-12) Stoma pink and productive of stool. Bolster in place. All incisions are clean dry and intact. Dressings removed. [place] in place. Impression/Plan Postoperative day #11 status post above listed procedures. Perforated diverticulitis with associated SIRS and consequential sepsis from large pelvic phlegmon in the setting of recurrent diverticular disease. Complicated episode necessitating operative intervention. Resection with primary anastomosis and proximal defunctionalizing loop ileostomy. High ileostomy output. Completed 10 days of IV antibiotics. Leukocytosis near resolved. Elevated BUN. Would continue IV fluids. Plan is as follows: (1) GI - IVF, HOLD bowel regimen, continue diet. Cont GI ppx. Resolved ileus. Opiate sparring analgesia. Loperamide prn. Will begin schedule lomotil. (2) SURGERY -we will remove stoma bolster tomorrow prior to discharge. In anticipation of stoma takedown patient will need outpatient colonoscopy and rectal contrast CT. (3) Renal/Lytes - continue IVF. Renal indices within normal limits. Elevated BUN from high ileostomy output. (4) Respiratory - O2 as necessary. Continue IS. (5) Heme - Will continue with DVT ppx. H/H stable. (6) Cardiovascular - HD acceptable. (7) Neuro - Opiate sparring analgesia. Antispasmodics with Robaxin. Neuropathic agents. (8) Immune/Infectious Disease -leukocytosis near resolved. Antibiotics on hold. If patient continues with leukocytosis or elevates in interim may need to consider prolonged IV antibiotics as an outpatient. (9) likely discharge in the next 24 hours.
[2020-10-06] MEDS: SODIUM CHLORIDE FLUSH 0.9% 10 ML SYRINGE IVP SCH ×2 (00:30→09:00)
[2020-10-06 05:26] LABS: BASOPHILS # (AUTO) 0.1 10^3/uL (0.0-0.1); BASOPHILS % (AUTO) 0.9 %; EOSINOPHILS # (AUTO) 0.3 10^3/uL (0.0-0.7); EOSINOPHILS % (AUTO) 2.7 %; HCT - HEMATOCRIT 39.8 % (42.0-52.0); HGB - HEMOGLOBIN 12.9 g/dL (14.0-18.0); LYMPHOCYTES # (AUTO) 2.5 10^3/uL (1.5-3.5); LYMPHOCYTES % (AUTO) 22.1 %; MEAN CORPUSCULAR HEMOGLOBIN 29.5 pg (27.0-31.0); MEAN CORPUSCULAR HGB CONC 32.4 g/dL (32.0-36.0); MEAN CORPUSCULAR VOLUME 91.1 fL (80.0-94.0); MEAN PLATELET VOLUME 11.7 fL (7.4-11.4); MONOCYTES # (AUTO) 0.8 10^3/uL (0.0-1.0); MONOCYTES % (AUTO) 7.1 %; NEUTROPHILS # (AUTO) 7.3 10^3/uL (1.5-6.6); NEUTROPHILS % (AUTO) 65.3 %; PLT - PLATELET COUNT 308 10^3/uL (130-450); RED BLOOD COUNT 4.37 10^6/uL (4.70-6.10); RED CELL DISTRIBUTION WIDTH 12.4 % (12.0-15.0); WHITE BLOOD COUNT 11.2 x10^3/uL (4.8-10.8)
[2020-10-06 05:37] LABS: CALCIUM 9.3 mg/dL (8.5-10.3); CREATININE 0.9 mg/dL (0.6-1.2); MAGNESIUM 2.1 mg/dL (1.7-2.8); PHOSPHORUS 3.4 mg/dL (2.5-4.6); POTASSIUM 4.2 mmol/L (3.5-5.0)
[2020-10-06] MEDS: PANTOPRAZOLE 40 MG TABLET PO SCH (06:07)
[2020-10-06] MEDS: MULTIVITAMIN W/MINERALS TABLET PO SCH (08:59)
[2020-10-06] MEDS: ENOXAPARIN 40 MG/0.4 ML SYRINGE SUBQ SCH (08:59)
[2020-10-06] MEDS: PREGABALIN 25 MG CAPSULE PO SCH (08:59)
[2020-10-06] MEDS: amLODIPine 5 MG TABLET PO SCH (08:59)
[2020-10-06] MEDS: LACTATED RINGERS 1,000 ML IV SCH (08:59)
[2020-10-06] MEDS: ACETAMINOPHEN 325 MG TABLET PO PRN (12:43)
[2020-10-06 16:22] VITALS: BP 136/81
--- NOTE | 2020-10-06 17:07 | DISCHARGE SUMMARY ---
"Discharge Summary Admit Date: 09/13/20 Discharge Date: 10/06/20 Discharging Provider: Kae Code Status: Attempt Resuscitation Condition at Discharge: Good Discharge Disposition: 01 Home, Self Care - DIAGNOSES Admission Diagnoses: 1. Complicated diverticulitis 2. SIRS/sepsis 3. Infectious ileus 4. Peritonitis 5. Intra-abdominal abscess 6. Protein malnutrition 7. Dehydration 8. Hypertension 9. Electrolyte abnormalities Discharge Diagnoses with Status of Each Condition: 1. Complicated diverticulitis - RESOLVED 2. SIRS/sepsis - RESOLVED 3. Infectious ileus - RESOLVED 4. Peritonitis - RESOLVED 5. Intra-abdominal abscess - RESOLVED 6. Protein malnutrition - RESOLVED 7. Dehydration - RESOLVED/TREATED 8. Hypertension - RESOLVED/TREATED 9. Electrolyte abnormalities - RESOLVED/TREATED - HPI History of Present Illness: Patient is a 55-year-old male with medical history significant for diverticulitis with perforation 4 years ago. He is not on any other medica tions. He presented to the ED today morning with Abdominal pain. His symptoms have been going on for the past 2 days. He was diagnosed with diverticulitis after CT scan was done in the ED. He was given a prescription for oral antibiotics. However he went home and the pain got worse. Worsening pain seem to coincide with when he was trying to have a bowel movement. He also experienced a temperature of 102 Fahrenheit and chills. He took the oral antibiotics and within 30 minutes vomited. He returned to the ED this evening where work-up showed that his white blood cell count had increased from 11 up to 17. Repeat CT scan showed sigmoid diverticulitis and a larger area of microperforation. There was no free air noted. It also raised the possibility of ileus but no obstruction. As a result the patient was presented for admission for further treatment. He denies chest pain, dyspnea. - CONSULTS | PROCEDURES Consultations: General Surgery, Colon & Rectal Surgery, Hospitalist Service, Anesthesia Procedures: Procedure Performed: 1. Diagnostic laparoscopy 2. Laparoscopic adhesiolysis, dense and lengthy 3. Laparoscopic anterior resection (7cm anastomosis) 4. Laparoscopic splenic flexure mobilization 5. Rigid proctoscopy 6. Laparoscopic loop ileostomy 7. Tap block per anesthesia 8. Drainage of pelvic abscess 9. Abdominal washout 10. Sampling of pelvic abscess 11. 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 Drain placement Findings: 1. Large pelvic rectosigmoid contained perforation encapsulated by mesorectum, rectosigmoid, and ileum. 2. Stool and purulence noted within collection. 3. Low pelvic anastomosis at 7cm. 4. 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 Umbilical hernia repaired primarily 6. Necessary pfannenstiel to explan the specimen, large phlegmonous mass 7. Left ureter as well as right identified and protected throughout the case - HOSPITAL COURSE Hospital Course: 55-year-old male presenting with recurrent diverticulitis now complicated by co ntained perforation. Admitted to the hospital service. Started broadly on antibiotics intravenously. Consulted on by general surgery. Conservative nonoperative management to start given anticipated development of abscess that would hopefully be amendable to percutaneous drain. Hospitalist service called Colorectal surgery for reevaluation of the patient. This was discussed extensively with the primary consulting surgeon Dr. Sin Collins. We discussed this in concert especially in light of patient's repeat imaging which continued to show large phlegmonous area without any active abscess formation and concern for persistent contained perforation. Patient continued to have leukocytosis, abdominal pain, and concerning findings on imaging. Patient had serial imaging, and both consulting surgeons decided that the patient would be best served with operative intervention. Became clear extent of contained perforation amongst others it will not be likely that the patient will be able to avoid operative intervention and even if he undergoes percutaneous drainage this will lead to a colocutaneous fistula as a consequence with its own associated sequelae. Any associated operative intervention would necessarily consider either Jamison's & colostomy after which the patient would opt to undergo a takedown with its associated challenges, or a resection with primary anastomosis and pr oximal diverting loop ileostomy to defunctionalize. Moreover, absent endoscopic screening, the patient, with whom we discussed all the above, was also advised of the potential that this could be a malignancy as well, which, in setting of perforation, would have its own associated consequences. Thus we agreed that we would continue to manage the patient and follow him clinically over the weekend however likely anticipate surgical intervention early next week. Continue with bowel rest, IV antibiotics, and consider PICC line placement. And ultimately underwent above listed procedure which included amongst others resection, low anterior, pelvic anastomosis, which was double stapled, and ul timately defunctionalized with a proximal diverting loop ileostomy at the level of what was an early enteric fistula with significant thickening. Patient at this time also had significant pain enteric bowel wall edema and signs of infectious ileus. He had a large phlegmon with contained perforation of stool thus polymicrobial sepsis with already established SIRS necessitating antibiotics. Patient was managed in the ICU within the initial postoperative period given associated SIRS with sepsis. Postoperative course is subdivided per organ system: (1) GI - Secondary to the patient's infectious ileus he was started on TPN, ultimately necessitated NG tube decompression from ileus and bowel obstruction the level of the stoma which was likely a consequence of significant bowel wall edema. This slowly resolved and the patient ultimately had positive resumption of bowel function with slow advancement of diet. Patient was maintained on bowel regimen however this was discontinued secondary to anticipated increase in ileostomy function. He was maintained on IV fluids secondary to dehydration and considered for slowing agents. Ultimately the PICC line was maintained for anticipated outpatient IV fluids in a patient at risk for hypovolemia from his diverting loop ileostomy. (2) SURGERY - Patient was maintained for wound packing to his multiple abdominal sites including the explantation site through his Pfannenstiel. These were changed daily and ultimately performed for delayed primary closure. Patient was maintained for multiple drains which were slowly removed after there was no concern for undrained abscess or remnant fluid. Ultimately he was removed for stoma bolster evaluated and consulted by enterostomal therapy for teaching. He had positive resumption of bowel function all drains removed all packing removed ok intact and plan for outpatient therapy. Obviously secondary to his diverting loop ileostomy although he had already gone resection and primary isa stomosis would necessitate a count of ileostomy after preoperative CT scanning as well as colonoscopy. (3) Renal/Lytes - continue IVF. Tripp was maintained for several days secondary to pelvic dissection and anticipated retention. He was started on Flomax. He was maintained for IV fluid secondary to uremia from dehydration from his ileostomy. He had successful trial of void. He was maintained on IV fluids through to discharge and plan for outpatient IV fluid resuscitation as well. (4) Respiratory - O2 as necessary. Continue IS. (5) Heme - Will continue with DVT ppx. H/H stable. (6) Cardiovascular - HD acceptable. Tachycardia perioperatively and at admission however appropriate systemic inflammatory response. (7) Neuro - Opiate sparring analgesia. Antispasmodics with Robaxin. Toradol sparingly given concerns for renal dysfunction and toxicity. Neuropathic agents. Obtained [employer] initially postoperatively (8) Immune/Infectious Disease - Broad-spectrum antibiotics to include van comycin, Zosyn, and Diflucan. Ultimately deescalated and antibiotics were maintained for 10 days. Patient had downtrending of leukocytosis with normal temperature tracing. No antibiotics at discharge. (9) Endocrinology - maintained on fingerstick blood glucose secondary to TPN. (10) patient maintained for nutrition on TPN ultimately transition to diet. Liver functions monitored. Patient with severe protein malnutrition secondary to prolonged n.p.o. Fluid status and electrolytes also monitored daily with intermittent hypokalemia, hypomagnesemia, and hypophosphatemia. Postoperative day #11 status post above listed procedures. Perforated diverticulitis with associated SIRS and consequential sepsis from large pelvic phlegmon in the setting of recurrent diverticular disease. Complicated episode necessitating operative intervention. Resection with primary anastomosis and proximal defunctionalizing loop ileostomy. High ileostomy output. Completed 10 days of IV antibiotics. Leukocytosis near resolved. Elevated BUN. Would continue IV fluids. Discharge within 24 hours, patient doing well hemodynamically acceptable with no contraindication to continuing convalescence as an outpatient when stable for discharge. We will continue outpatient IV fluid resuscitation. Weekly labs. Plan is as follows: (1) GI - IVF, HOLD bowel regimen, continue diet. Cont GI ppx. Resolved ileus. Opiate sparring analgesia. Loperamide prn. Will begin schedule lomotil. (2) SURGERY - we will remove stoma bolster tomorrow prior to discharge. In anticipation of stoma takedown patient will need outpatient colonoscopy and rectal contrast CT. (3) Renal/Lytes - continue IVF. Renal indices within normal limits. Elevated BUN from high ileostomy output. (4) Respiratory - O2 as necessary. Continue IS. (5) Heme - Will continue with DVT ppx. H/H stable. (6) Cardiovascular - HD acceptable. (7) Neuro - Opiate sparring analgesia. Antispasmodics with Robaxin. Neuropathic agents. (8) Immune/Infectious Disease - leukocytosis near resolved. Antibiotics on hold. If patient continues with leukocytosis or elevates in interim may need to consider prolonged IV antibiotics as an outpatient. (9) likely discharge in the next 24 hours. Care Goals: 1. Dehydration in the setting of high ileostomy output 2. Status post bowel resection, low anterior resection for perforated diverticulitis complicated 3. Weekly labs to assess renal function, and fluid status 4. Weekly labs to assess white count and evaluate for recurrent infectious process 5. We will need repeat CT scan to evaluate for integrity of the anastomosis and also preoperative colonoscopy anticipating ileostomy reversal 6. Continue with PICC line as outpatient and PICC line care. - ALLERGIES Allergies/Adverse Reactions: Allergies Allergy/AdvReac Type Severity Reaction Status Date / Time No Known Drug Allergies Allergy Verified 09/13/20 20:48 - MEDICATIONS Home Medications: Ambulatory Orders Medication Instructions Recorded Confirmed Acetaminophen [Tylenol] 650 mg PO Q4HR PRN 10/06/20 Multivitamin W/Minerals [Theragran 1 tab PO DAILYWM 10/06/20 M] Pantoprazole [Protonix] 40 mg PO QDAC #30 tab 10/06/20 Pregabalin [Lyrica] 75 mg PO BID #30 tab 10/06/20 amLODIPine [Norvasc] 5 mg PO DAILY #30 tab 10/06/20 - PHYSICAL EXAM AT DISCHARGE General Appearance: positive: No acute distress, Alert Eyes Bilateral: positive: Normal inspection, PERRL, EOMI ENT: positive: ENT inspection nml Neck: positive: Nml inspection Respiratory: positive: Chest non-tender, No respiratory distress, Breath sounds nml. negative: Wheezes, Rales, Rhonchi Cardiovascular: positive: Regular rate & rhythm Abdomen: positive: Non-tender, Other (Abdominal Exam:). negative: No distention, Guarding, Rebound Skin: positive: Color nml Extremities: positive: Non-tender, Full ROM, Nml appearance Neurologic/Psychiatric: positive: Oriented x3, CN's nml (2-12), Motor nml, Sensation nml, Mood/affect nml - LABS Result Diagrams: 10/06/20 04:56 10/06/20 04:56 - DIAGNOSTIC IMAGING Diagnostic Imaging Results: Final report reviewed - SEPSIS Current Stage of Sepsis: Resolved Possible source of Sepsis: Other Confirmed Source and Organism (if known) of Sepsis: Contained perforation from abdomen. Polymicrobial. Sepsis Associated Organ Dysfunction: 1. Gastrointestinal as evident by Ileus secondary to localized peritonitis 2. Systemic inflammatory response/leukocytosis 3. Others secondarily involved including nutrition, renal, amongst others. - FOLLOW UP Follow Up: Follow-up in clinic in 2 weeks for wound care and check. Follow-up in [facility] weekly for IV fluids and weekly lab draws. Enterostomal care as an outpatient. No heavy lifting, pushing, or pulling. Stairs are allowed, no strenuo us/exertional activities. 5-10lbs weight carrying limit (i.e. gallon of milk) If provided, abdominal binder while out of bed and while ambulating. Call or proceed to clinic/ER for fevers, severe pain, nausea, vomiting, inability to pass flatus/stool, bleeding, wound redness/discharge, weakness, excessively loose stool/diarrhea, or for any other reasonably worrisome symptom or concern. Soft diet, no raw vegetables, avoid high fiber foods. May shower, no submersive bathing. Follow up in clinic in 2-4 weeks for wound check and staple removal. No driving while taking narcotic pain medications. Follow up with primary care provider and/or medical subspecialist following discharge as well. - TIME SPENT Time Spent in Discharge (Minutes): 60"
--- NOTE | 2020-10-06 17:07 | Discharge Plan ---
Discharge Plan Problem Reviewed?: Yes Disposition: Home, Self Care Condition: Good Prescriptions: Pregabalin [Lyrica] 75 mg PO BID #30 tab amLODIPine [Norvasc] 5 mg PO DAILY #30 tab Pantoprazole [Protonix] 40 mg PO QDAC #30 tab Diet: Soft Activity Restrictions: Activity as Tolerated Shower Restrictions: No Driving Restrictions: Yes Weight Bearing: Full Weight Instruction Topics: Ketorolac injection, Piperacillin Tazobactam injection, Diverticulosis Diverticulitis, Risk Factors High Blood Pressure, DASH Plan Eat Heart Healthy Food, High Blood Pressure, Colorectal Surg Recovery, Colorectal Surg Hospital Home, Ileostomy Stoma Care, Ileostomy Dc, Dehydration, PICC Care Dc, PICC Health Concerns: 1. Dehydration in the setting of high ileostomy output 2. Status post bowel resection, low anterior resection for perforated diverticulitis complicated 3. Weekly labs to assess renal function, and fluid status 4. Weekly labs to assess white count and evaluate for recurrent infectious process 5. We will need repeat CT scan to evaluate for integrity of the anastomosis and also preoperative colonoscopy anticipating ileostomy reversal 6. Continue with PICC line as outpatient and PICC line care. Care Goals: 1. Dehydration in the setting of high ileostomy output 2. Status post bowel resection, low anterior resection for perforated diverticulitis complicated 3. Weekly labs to assess renal function, and fluid status 4. Weekly labs to assess white count and evaluate for recurrent infectious process 5. We will need repeat CT scan to evaluate for integrity of the anastomosis and also preoperative colonoscopy anticipating ileostomy reversal 6. Continue with PICC line as outpatient and PICC line care. DISCHARGE INSTRUCTIONS TEMPLATE: No heavy lifting, pushing, or pulling. Stairs are allowed, no strenuous/exertional activities. 5-10lbs weight carrying limit (i.e. gallon of milk) If provided, abdominal binder while out of bed and while ambulating. Call or proceed to clinic/ER for fevers, severe pain, nausea, vomiting, inabili ty to pass flatus/stool, bleeding, wound redness/discharge, weakness, excessively loose stool/diarrhea, or for any other reasonably worrisome symptom or concern. Soft diet, no raw vegetables, avoid high fiber foods. Please refer to ileostomy handout provided at the time of discharge. Advised of symptoms as it relates to dehydration and fluid status. May shower, no submersive bathing. Follow up in clinic in 2 weeks for wound check and staple removal. No driving while taking narcotic pain medications. Follow up with primary care provider and/or medical subspecialist following discharge as well. Patient not allowed to drive self today or within 24 hours of surgery. Assessment: Subjective Doing well. Tolerating oral intake. Voiding spontaneously. Positive stoma output. Objective Afebrile hemodynamically acceptable General Appearance: positive: No acute distress Eyes Bilateral: positive: Normal inspection ENT: positive: ENT inspection nml Neck: positive: Nml inspection Respiratory: positive: Chest non-tender, No respiratory distress, Breath sounds nml. negative: Wheezes, Rales, Rhonchi Cardiovascular: positive: Regular rate & rhythm Abdomen: positive: No distention, Other. negative: Guarding, Rebound Extremities: positive: Non-tender, Full ROM, Nml appearance Neurologic/Psychiatric: positive: Oriented x3, CN's nml (2-12) Wounds clean dry and intact, ok in place. No redness no fluctuance. No concerns for hernias. Stoma bolster removed. Stoma appliance change. Patient tolerated well. Impression/Plan Appropriate for discharge with outpatient follow-up and outpatient IV fluid resuscitation. Continue with PICC line. No Smoking: If you smoke, Please STOP! Call for help. Follow-up with: Jovan Pal MD [Provider Admit Priv/Credential] -
== END 2020-10-06 18:00 | disposition home or self-care (01) | DRG 853 ==
LOC: ED 20:46 → ICU 22:36 → MS2 09-14 19:56 → ICU 09-24 18:10 → MS2 09-27 00:32
PROVIDERS: ADMIT Internal Medicine; ATTEND Surgery
PROC: 0DBP0ZZ Excision of Rectum, Open Approach (ICD-10-PCS; 2020-09-24)
PROC: 0D1B4Z4 Bypass Ileum to Cutaneous, Percutaneous Endoscopic Approach (ICD-10-PCS; 2020-09-24)
PROC: 0DNB4ZZ Release Ileum, Percutaneous Endoscopic Approach (ICD-10-PCS; 2020-09-24)
PROC: 0DNG4ZZ Release Left Large Intestine, Percutaneous Endoscopic Approach (ICD-10-PCS; 2020-09-24)
PROC: 0DJD8ZZ Inspection of Lower Intestinal Tract, Via Natural or Artificial Opening Endoscopic (ICD-10-PCS; 2020-09-24)
PROC: 02HV33Z Insertion of Infusion Device into Superior Vena Cava, Percutaneous Approach (ICD-10-PCS; 2020-09-24)
PROC: 3E0436Z Introduction of Nutritional Substance into Central Vein, Percutaneous Approach (ICD-10-PCS; 2020-09-24)
PROC: 0DBN0ZZ Excision of Sigmoid Colon, Open Approach (ICD-10-PCS; principal; 2020-09-24 11:45)
DX: A41.9 Sepsis, unspecified organism (principal); K65.0 Generalized (acute) peritonitis; E43 Unspecified severe protein-calorie malnutrition; K57.20 Diverticulitis of large intestine with perforation and abscess without bleeding; K56.7 Ileus, unspecified; K63.2 Fistula of intestine; K66.0 Peritoneal adhesions (postprocedural) (postinfection); K42.9 Umbilical hernia without obstruction or gangrene; I10 Essential (primary) hypertension; E86.0 Dehydration; F17.210 Nicotine dependence, cigarettes, uncomplicated; Z20.822 Contact with and (suspected) exposure to COVID-19; Z68.26 Body mass index [BMI] 26.0-26.9, adult; Z79.899 Other long term (current) drug therapy
CPT/HCPCS: 0202U; 36415; 71045; 74018; 74177; 80048; 80053; 81001; 83605; 83690; 83735; 84100; 84134; 84478; 85025; 86140; 87150; 87493; 88108; 88305; 88307; 96365; 96368; 96374; 96375; 99285; A9270; C1751; J0131; J1170; J1650; J1815; J2765; J3370; J3490; J7120; Q9967; 80202; 81003; 87086

== ENCOUNTER 2020-11-12 07:22 | Inpatient (IN) | payer OTHER ==
[2020-11-12] MEDS ORDERED: LACTATED RINGERS 1,000 ML IV ONE ×4 (07:37→17:11)
[2020-11-12] MEDS ORDERED: fentaNYL 250 MCG/5 ML VIAL ONE (08:40)
[2020-11-12] MEDS ORDERED: MIDAZOLAM 2 MG/2 ML VIAL ONE ×2 (08:40→09:08)
[2020-11-12] MEDS ORDERED: fentaNYL 100 MCG/2 ML VIAL IVP PRN ×2 (09:24→14:35)
[2020-11-12] MEDS ORDERED: ePHEDrine 50 MG/ML VIAL IVP PRN ×2 (09:24→14:35)
[2020-11-12] MEDS ORDERED: MORPHINE 2 MG/ML CARPUJECT IVP PRN ×2 (09:24→14:35)
[2020-11-12] MEDS ORDERED: ATROPINE ABBOJECT 1 MG/10 ML SYRINGE IVP PRN ×2 (09:24→14:35)
[2020-11-12] MEDS ORDERED: HYDROmorphone 0.5 MG/0.5 ML SYRINGE IVP PRN ×2 (09:24→14:35)
[2020-11-12] MEDS ORDERED: SODIUM CHLORIDE FLUSH 0.9% 10 ML SYRINGE IVP PRN (09:24)
[2020-11-12] MEDS ORDERED: ONDANSETRON 4 MG/2 ML VIAL IVP PRN ×3 (09:24→14:35)
[2020-11-12] MEDS ORDERED: METOCLOPRAMIDE 10 MG/2 ML VIAL IVP PRN ×2 (09:24→14:35)
[2020-11-12] MEDS ORDERED: NALOXONE 0.4 MG/ML VIAL IVP PRN ×2 (09:24→14:35)
[2020-11-12] MEDS: HYDROmorphone 0.5 MG/0.5 ML SYRINGE IVP PRN ×2 (09:38→09:58)
[2020-11-12 09:48] LABS: BASOPHILS # (AUTO) 0.1 10^3/uL (0.0-0.1); BASOPHILS % (AUTO) 0.7 %; EOSINOPHILS # (AUTO) 0.2 10^3/uL (0.0-0.7); EOSINOPHILS % (AUTO) 1.5 %; HCT - HEMATOCRIT 44.4 % (42.0-52.0); HGB - HEMOGLOBIN 14.7 g/dL (14.0-18.0); LYMPHOCYTES # (AUTO) 3.8 10^3/uL (1.5-3.5); LYMPHOCYTES % (AUTO) 30.9 %; MEAN CORPUSCULAR HEMOGLOBIN 29.1 pg (27.0-31.0); MEAN CORPUSCULAR HGB CONC 33.1 g/dL (32.0-36.0); MEAN CORPUSCULAR VOLUME 87.9 fL (80.0-94.0); MEAN PLATELET VOLUME 9.8 fL (7.4-11.4); MONOCYTES # (AUTO) 0.7 10^3/uL (0.0-1.0); MONOCYTES % (AUTO) 5.7 %; NEUTROPHILS # (AUTO) 7.3 10^3/uL (1.5-6.6); NEUTROPHILS % (AUTO) 59.5 %; PLT - PLATELET COUNT 240 10^3/uL (130-450); RED BLOOD COUNT 5.05 10^6/uL (4.70-6.10); RED CELL DISTRIBUTION WIDTH 13.3 % (12.0-15.0); WHITE BLOOD COUNT 12.3 x10^3/uL (4.8-10.8)
[2020-11-12] MEDS ORDERED: HYDROmorphone 1 MG/ML CARPUJECT ONE ×2 (09:48→16:34)
[2020-11-12 09:56] LABS: PT - PROTHROMBIN TIME 11.7 secs (9.9-12.6)
[2020-11-12] MEDS ORDERED: LACTATED RINGERS 1,000 ML IV SCH ×2 (10:00→15:00)
[2020-11-12] MEDS ORDERED: PIPERACILLIN/TAZOBACTAM 3.375 GM in SODIUM CHLORIDE 0.9% MINIBAG 100 ML IV SCH (10:00)
[2020-11-12 10:02] LABS: ALBUMIN 4.6 g/dL (3.2-5.5); ALBUMIN/GLOBULIN RATIO 1.4 (1.0-2.2); BILIRUBIN,TOTAL 1.2 mg/dL (0.2-1.0); CALCIUM 9.9 mg/dL (8.5-10.3); TOTAL PROTEIN 7.9 g/dL (6.7-8.2)
--- NOTE | 2020-11-12 10:03 | XRAY Report ---
PROCEDURE: Chest 1 View X-Ray INDICATIONS: PRE OP TECHNIQUE: One view of the chest was acquired. COMPARISON: 09/24/[address] abdomen and pelvis dated 09/30/2020 FINDINGS: Surgical changes and devices: There is a right upper extremity PICC with the distal tip projecting in the upper to mid SVC. Lungs and pleura: No pleural effusions or pneumothorax. Lungs are clear. Mediastinum: Mediastinal contours appear normal. Heart size is normal. Bones and chest wall: No suspicious bony lesions. Overlying soft tissues appear unremarkable. Ther e is suggestion of possible right subdiaphragmatic free air. This may represent residual postoperativ e changes from creation of right lower quadrant ostomy. IMPRESSION: 1. Findings consistent with right subdiaphragmatic free air. Consider left lateral decubitus imaging to help further characterize. 2. Otherwise, no acute cardiopulmonary abnormality seen. Reviewed by: Tacho Swanson MD on 11/12/2020 10:01 AM PDT Approved by: Tacho Swanson MD on 11/12/2020 10:01 AM PDT Station ID: [id number]
[2020-11-12] MEDS: PIPERACILLIN/TAZOBACTAM 3.375 GM in SODIUM CHLORIDE 0.9% MINIBAG 100 ML IV SCH ×2 (10:36→18:04)
--- NOTE | 2020-11-12 11:05 | ANESTHESIA ---
Pre-Anesthesia VS, & Labs - Diagnosis bowel perforation, diverticulitis, s/p ileostomy - Procedure ileostomy takedown Vital Signs: Temp Pulse Resp BP Pulse Ox 36.8 C 73 18 153/99 H 96 11/12/20 10:59 11/12/20 10:59 11/12/20 10:59 11/12/20 10:59 11/12/20 10:59 Height: 5 ft 10 in Weight (kg): 95.5 kg Body Mass Index: 30.2 BMI Classification: Obese - NPO >8 hours - Lab Results Current Lab Results: Laboratory Tests 11/12/20 09:45: Sodium 137, Potassium 4.0, Chloride 102, Carbon Dioxide 20 L, Anion Gap 15.0 H, BUN 15, Creatinine 1.0, Estimated GFR (MDRD) 78 L, Glucose 147 H, Calcium 9.9, Total Bilirubin 1.2 H, AST 27, ALT 42, Alkaline Phosphatase 84, Total Protein 7.9, Albumin 4.6, Globulin 3.3, Albumin/Globulin Ratio 1.4 11/12/20 09:45: PT 11.7, INR 1.0 11/12/20 09:45: WBC 12.3 H, RBC 5.05, Hgb 14.7, Hct 44.4, MCV 87.9, MCH 29.1, MCHC 33.1, RDW 13.3, Plt Count 240, MPV 9.8, Neut # (Auto) 7.3 H, Lymph # (Auto) 3.8 H, Sebastian # (Auto) 0.7, Eos # (Auto) 0.2, Baso # (Auto) 0.1, Absolute Nucleated RBC 0.00, Nucleated RBC % 0.0 Fish Bones: 11/12/20 09:45 11/12/20 09:45 Home Medications and Allergies Home Medications: Ambulatory Orders Acetaminophen [Tylenol] 500 mg PO DAILY 11/12/20 Active Medications Heparin Sodium (Porcine) (Heparin 5,000 Unit/Ml Vial) 5,000 unit SUBQ TID ASHWIN Hydromorphone HCl (Hydromorphone 0.5 Mg/0.5 Ml Syringe) 0.5 mg IVP Q2H PRN PRN Reason: PAIN Last Admin: 11/12/20 09:58 Dose: 0.5 mg Documented by: Piperacillin Sod/Tazobactam (Sod 3.375 gm/ Sodium Chloride) 100 mls @ 200 mls/hr IV ONCE ASHWIN Stop: 11/12/20 12:00 Last Admin: 11/12/20 10:00 Dose: 200 mls/hr Documented by: Potassium Chloride/Dextrose/Sod Cl (D5ns W/20 Meq Kcl) 1,000 mls @ 125 mls/hr IV .Q8H ASHWIN Acetaminophen (Ofirmev) 100 mls @ 400 mls/hr IV Q6HR ASHWIN Piperacillin Sod/Tazobactam (Sod 3.375 gm/ Sodium Chloride) 100 mls @ 25 mls/hr IV Q8H ASHWIN Last Admin: 11/12/20 10:36 Dose: 0 mls Documented by: Metoclopramide HCl (Metoclopramide 10 Mg/2 Ml Vial) 10 mg IVP Q6HR ASHWIN Ondansetron HCl (Ondansetron 4 Mg/2 Ml Vial) 4 mg IVP Q6HR PRN PRN Reason: Nausea / Vomiting Last Admin: 11/12/20 09:39 Dose: 4 mg Documented by: Sodium Chloride (Sodium Chloride Flush 0.9% 10 Ml Syringe) 10 ml IVP 0100,0900,1700 ASHWIN Sodium Chloride (Sodium Chloride Flush 0.9% 10 Ml Syringe) 10 ml IVP PRN PRN PRN Reason: NEEDED PER PROVIDER ORDERS Allergies/Adverse Reactions: Allergies Allergy/AdvReac Type Severity Reaction Status Date / Time No Known Drug Allergies Allergy Verified 09/13/20 20:48 Anes History & Medical History - Anesthetic History Anesthesia Complications: reports: No previous complications - Medical History Cardiovascular: reports: None Pulmonary: reports: None Gastrointestinal: reports: Diverticulitis Urinary: reports: None Neuro: reports: None Musculoskeletal: reports: None Endocrine/Autoimmune: reports: None Blood Disorders: reports: None Skin: reports: None Smoking Status: Current every day smoker - Surgical History General: reports: Other Eyes Ears Nose Throat (EENT): reports: Tonsil/Adenoidectomy Orthopedic: reports: Arthroscopic surgery Exam General: Cooperative, Mild distress Dental: WNL Mouth Opening: Greater than 4 Fingerbreadths Neck Mobility: Normal Mallampati classification: II Thyromental Distance: greater than 6 cm Respiratory: Lungs clear Cardiovascular: Regular rate Plan Anesthesia Type: General Consent for Procedure(s) Verified and Reviewed: Yes Code Status: Attempt Resuscitation ASA classification: 2-Mild systemic disease Is this case an emergency?: Yes
[2020-11-12] MEDS: D5NS W/20 MEQ KCL 1,000 ML IV SCH (12:14)
[2020-11-12] MEDS: HEPARIN 5,000 UNIT/ML VIAL SUBQ SCH ×3 (12:15→21:55)
[2020-11-12] MEDS: ACETAMINOPHEN 1,000 MG/100 ML 100 ML IV SCH ×2 (12:17→17:40)
[2020-11-12] MEDS: METOCLOPRAMIDE 10 MG/2 ML VIAL IVP SCH ×2 (12:18→17:41)
[2020-11-12] MEDS ORDERED: BUPIVACAINE 0.5% PF 30 ML VIAL ONE (12:32)
[2020-11-12] MEDS ORDERED: fentaNYL 100 MCG/2 ML VIAL ONE ×3 (13:18→16:35)
[2020-11-12] MEDS ORDERED: LIDOCAINE-MPF 2% 5 ML VIAL ONE (13:18)
[2020-11-12] MEDS ORDERED: PROPOFOL 200 MG/20 ML VIAL IVP ONE (13:18)
[2020-11-12] MEDS ORDERED: ONDANSETRON 4 MG/2 ML VIAL ONE (13:19)
[2020-11-12] MEDS ORDERED: ROPIVACAINE 0.5% PF 20 ML AMPULE ONE (13:19)
[2020-11-12] MEDS ORDERED: ROCURONIUM 50 MG/5 ML VIAL ONE ×2 (13:19→14:42)
[2020-11-12] MEDS ORDERED: DEXAMETHASONE 4 MG/ML VIAL ONE (13:19)
--- NOTE | 2020-11-12 14:04 | PHARMACY PROGRESS NOTE ---
- Best Possible Medication History Admit Date and Time: 11/12/20923 Processed by: Pharmacy Medication History completed: Yes Patient Interview: Completed (Pt interviewed by Kavon) Secondary Source(s): Pharmacy records, Previous admit records As the person ultimately responsible for medication therapy, providers are able to order a medication from an existing home medication list in [facility] via the "Reconcile Routine" prior to Confirmation of that medication by product support rep. Such practice is discouraged except when the physician, in their clinical judgment, deems that a medical need exists for a medication without regard to previous use.
[2020-11-12] MEDS ORDERED: SEVOFLURANE 250 ML LIQUID INH ONE (15:24)
[2020-11-12] MEDS ORDERED: SUGAMMADEX 200 MG/2 ML VIAL IVP ONE (16:07)
--- NOTE | 2020-11-12 16:50 | OPERATIVE REPORT ---
Operative Report - General Admit Date: 11/12/20 Procedure Date: 11/12/20 Planned Procedure: 1. Mini laparotomy 2. Diagnostic laparoscopy 3. Ileostomy reversal and small bowel resection 4. Abdominal washout 5. Drain placement Pre-Op Diagnosis: H/O LAR for complicated diverticulitis; distal ileal perf on enterosscopy Procedure Performed: 1. Mini laparotomy 2. Diagnostic laparoscopy 3. Ileostomy reversal and small bowel resection 4. Abdominal washout 5. Drain placement 6. Extensive adhesiolysis including right colonic mobilization Post Op Diagnosis: Same; terminal ileal stricturing; right pelvic side wall adhesions - Procedure Note Primary Surgeon: Kae Secondary Surgeon: Karina Anesthesia Provider: Katiana Anesthesia Technique: General ET tube, Local, Regional block Pathology: 1. Loop ileostomy with distal ileal perforation 2. Distal ileal margin 3. Proximal ileal margin Estimated Blood Loss (mL): 250 Drain/Tube Type: Slick drain Indications: 1. Need for ileostomy reversal given history of low anterior resection for complicated perforated diverticulitis that was performed for primary anastomosis, defunctionalized 2. Inability to assess the terminal ileum on transanal colonoscopy secondary to extensive ascending and cecal diversion colitis 3. Efferent limb ileostomy suspected perforation of defunctionalized terminal ileum while evaluating with upper endoscope during which patient had become agitated during challenge with sedation. 4. Abdominal pain post procedure inspiring urgent laparotomy and intervention Findings: 1. Dense right abdominal adhesions 2. Terminal ileum efferent limb perforation within the mesentery 3. Viable [id number] functional end-to-end antiperistaltic anastomosis 4. Patent ileocecal valve by digital intubation Complications: NONE - Other Other Information/Narrative: Pending
--- NOTE | 2020-11-12 16:53 | ANESTHESIA POST OP EVALUATION ---
Anesthesia Post Eval - Post Anesthesia Eval Vitals: Last Vital Signs Temp 36.8 C 11/12/20 16:30 Pulse 94 11/12/20 16:51 Resp 22 11/12/20 16:51 BP 168/102 H 11/12/20 16:51 Pulse Ox 95 11/12/20 16:51 CV Function Including HR & BP: positive: Stable Pain Control: positive: Satisfactory Nausea & Vomiting: positive: Negative Mental Status: positive: Patient Participates Respiratory Status: Airway Patent Hydration Status: Satisfactory Anesthesia Complications: positive: None
[2020-11-12] MEDS ORDERED: HYDROmorphone PCA 20MG/100ML IV PRN (17:00)
[2020-11-12] MEDS ORDERED: SODIUM CHLORIDE FLUSH 0.9% 10 ML SYRINGE IVP SCH (17:00)
[2020-11-12] MEDS ORDERED: METOCLOPRAMIDE 10 MG/2 ML VIAL IVP SCH (18:00)
[2020-11-12] MEDS ORDERED: methocarbamoL 500 MG TABLET PO SCH (18:00)
[2020-11-12] MEDS: methocarbamoL 500 MG TABLET PO SCH (19:22)
[2020-11-12] MEDS: PREGABALIN 100 MG CAPSULE PO SCH (21:55)
[2020-11-12] MEDS: DOCUSATE SODIUM 100 MG CAPSULE PO SCH (21:55)
[2020-11-12] MEDS: polyethylene glycoL 3350 17 GM PACKET PO SCH (21:56)
[2020-11-13 00:40] LABS: BASOPHILS % (AUTO) 0.4 %; HCT - HEMATOCRIT 37.2 % (42.0-52.0); LYMPHOCYTES % (AUTO) 5.6 %; MEAN CORPUSCULAR HEMOGLOBIN 29.3 pg (27.0-31.0); MEAN CORPUSCULAR HGB CONC 32.3 g/dL (32.0-36.0); NEUTROPHILS % (AUTO) 86.1 %; PLT - PLATELET COUNT 260 10^3/uL (130-450); RED BLOOD COUNT 4.09 10^6/uL (4.70-6.10); RED CELL DISTRIBUTION WIDTH 13.6 % (12.0-15.0)
[2020-11-13 00:44] LABS: ABNORMAL LYMPHS % (MANUAL) 0 %
[2020-11-13 01:01] LABS: BAND NEUTROPHILS % (MANUAL) 19 %; DIFFERENTIAL COMMENT MANUAL DIFFERENTIAL; EOSINOPHILS # (MANUAL) 0.3 10^3/uL (0-0.7); LYMPHOCYTES # (MANUAL) 1.1 10^3/uL (1.5-3.5); LYMPHOCYTES % (MANUAL) 4 %; MONOCYTES # (MANUAL) 1.4 10^3/uL (0.0-1.0); NEUTROPHILS # (MANUAL) 24.3 10^3/uL (1.5-6.6); PLATELET ESTIMATE, MANUAL NORMAL (130-450,000) (NORMAL); RBC MORPHOLOGY (MULTIPLE) NORMAL APPEARANCE (NORMAL)
[2020-11-13 01:12] LABS: ALBUMIN 3.6 g/dL (3.2-5.5); BILIRUBIN,DIRECT 0.4 mg/dL (0.1-0.5); BILIRUBIN,TOTAL 2.1 mg/dL (0.2-1.0); CALCIUM 8.4 mg/dL (8.5-10.3); CREATININE 1.9 mg/dL (0.6-1.2); MAGNESIUM 1.7 mg/dL (1.7-2.8); POTASSIUM 4.6 mmol/L (3.5-5.0); TOTAL PROTEIN 6.4 g/dL (6.7-8.2)
[2020-11-13] MEDS ORDERED: ASPIRIN 325 MG TABLET PO ONE (01:15)
[2020-11-13] MEDS: methocarbamoL 500 MG TABLET PO SCH ×4 (01:19→16:19)
--- NOTE | 2020-11-13 01:20 | PROVIDER PROGRESS NOTE ---
Progress Note Subjective Patient is status post mini laparotomy, ileostomy reversal, laparoscopic assistance. He had a syncopal episode. Patient was seen by me as well as the hospital service. EKG, troponin, labs, ordered and discussed with the hospitalist service. Patient with no chest pain. Reporting abdominal discomfort. Objective Afebrile, hemodynamically acceptable General Appearance: positive: No acute distress Eyes Bilateral: positive: Normal inspection ENT: positive: ENT inspection nml Neck: positive: Nml inspection Respiratory: positive: Chest non-tender, No respiratory distress, Breath sounds nml. negative: Wheezes, Rales, Rhonchi Cardiovascular: positive: Regular rate & rhythm Extremities: positive: Non-tender, Full ROM, Nml appearance Neurologic/Psychiatric: positive: Oriented x3, CN's nml (2-12) Abdomen soft, appropriately tender, no rebound no guarding, nondistended. Drain output sanguinous. Impression/Plan Postoperative day #0 with elevated troponin, tachycardia, lactic acidosis, as well as syncopal episode. Discussed with hospitalist service and will start heparin infusion without bolus and dosed with antiplatelet therapy with aspirin. We will transfer the ICU from continued monitoring. Plan going forward is as follows: (1) GI - IVF, bowel regimen, N.p.o. except for meds. GI ppx. Opiate sparring analgesia. (2) SURGERY - Continue Slick drain to gravity no self suction. (3) Renal/Lytes - continue IVF. Renal indices within normal limits. (4) Respiratory - O2 as necessary. Continue IS. (5) Heme - Will begin heparin infusion without bolus. Serial H&H's. (6) Cardiovascular - HD acceptable. Continue telemetry. Continue serial troponins. Concern for non-STEMI. A.m. echocardiography. (7) Neuro - Opiate sparring analgesia. (8) Immune/Infectious Disease - Continue antibiotics
[2020-11-13] MEDS: D5NS W/20 MEQ KCL 1,000 ML IV SCH (01:28)
[2020-11-13] MEDS ORDERED: IPRATROPIUM 0.2 MG/ML NEB INH PRN (01:35)
[2020-11-13] MEDS ORDERED: ALBUTEROL NEB 2.5 MG/3 ML INH PRN (01:35)
[2020-11-13 01:47] LABS: HCT - HEMATOCRIT 37.5 % (42.0-52.0); HGB - HEMOGLOBIN 12.4 g/dL (14.0-18.0); MEAN CORPUSCULAR HEMOGLOBIN 29.7 pg (27.0-31.0); MEAN CORPUSCULAR HGB CONC 33.1 g/dL (32.0-36.0); MEAN CORPUSCULAR VOLUME 89.9 fL (80.0-94.0); RED BLOOD COUNT 4.17 10^6/uL (4.70-6.10); RED CELL DISTRIBUTION WIDTH 13.5 % (12.0-15.0); WHITE BLOOD COUNT 28.7 x10^3/uL (4.8-10.8)
--- NOTE | 2020-11-13 01:47 | CONSULTATION NOTE ---
Referring Provider Name of Referring Provider:: Dr. Jovan Pal Consult Date: 11/13/20 Chief Complaint - Chief Complaint Chief Complaint: Passed out History of Present Illness - Admitted From Admitted From:: Home - History Obtained From Records Reviewed: Yes History obtained from: Patient, Nursing, General Surgeon, EMR - History of Present Illness HPI Comment/Other: This is a 55-year-old male with a past medical history significant for hypertension and diverticulitis that required an extensive hospitalization earlier this year. He was admitted in August and discharged mid September for complicated diverticulitis and he underwent He underwent diagnostic laparoscopy followed by anterior resection with loop ileostomy and drainage of pelvic abscess. He was treated with IV antibiotics for multiple weeks and ultimately was able to be discharged home. Today he underwent a mini laparotomy with ileostomy reversal. He has been on Zosyn IV as well as IV fluids. Late this evening, a rapid response was called as the patient had a syncopal episode when trying to get out of bed. It lasted a minute to minute and a half per nursing. The patient does not recall the event. He reports no palpitations, chest pain, dyspnea. He denies any dizziness or lightheadedness. He is has had no similar episodes in the past. Denies any prior cardiac history. Review of telemetry shows patient has been in sinus tachycardia. During this episode there was a lot of artifact but one of the leads continued to show sinus tachycardia. General surgery was contacted by nursing and labs were obtained which were significant for elevated troponin at over 400, lactic greater than 10. Given these findings, medicine was consulted to assist with medical management. History - Past Medical History Cardiovascular: reports: Hypertension Respiratory: reports: None Neuro: reports: None Endocrine/Autoimmune: reports: None GI: reports: Diverticulitis : reports: None HEENT: reports: None Psych: reports: None Musculoskeletal: reports: None Derm: reports: None MRSA Hx?: No - Past Surgical History General: reports: Bowel surgery, Other (Laparoscopic resection of the colon with an loop ileostomy. This was followed by reversal of the ileostomy on November 13) Ortho: reports: Arthroscopic surgery HEENT: reports: Tonsil/Adenoidectomy - Family & Social History Family History Comment/Other: Family history is limited given the acuity of his condition but he reports no history of heart disease or cancers. Review of prior records noted that he had mentioned there was a family history of diabetes and heart disease and that his mother did have an unknown cancer. Living arrangement: At home Living Situation: With family Social History Notes: He lives at home with his . He continues to smoke a pack a day and has been doing so for about 45 years. - POLST Patient has POLST: No POLST Status: Full Code Meds/Allgy - Home Medications Home Medications: Ambulatory Orders Medication Instructions Recorded Confirmed Pantoprazole [Protonix] 40 mg PO QDAC #30 tab 10/06/20 11/12/20 amLODIPine [Norvasc] 5 mg PO DAILY #30 tab 10/06/20 11/12/20 Acetaminophen [Tylenol] 500 mg PO DAILY 11/12/20 11/12/20 - Allergies Allergies/Adverse Reactions: Allergies Allergy/AdvReac Type Severity Reaction Status Date / Time No Known Drug Allergies Allergy Verified 09/13/20 20:48 Review of Systems - Cardiovascular Cariovascular: reports: Syncope. denies: Palpitations, Chest pain - Respiratory Respiratory: denies: Cough, SOB at rest, SOB with exertion - Gastrointestinal Gastrointestinal: reports: Abdominal pain. denies: Diarrhea, Nausea, Vomiting - All Other Systems All Other Systems: reports: Other (Review of systems is limited due to the acuity of the patient.) Exam - Vital Signs Reviewed Vital Signs: Yes Vital Signs: Vital Signs x48h Temp Pulse Resp BP Pulse Ox 11/13/20 00:15 15 116/86 H 11/13/20 00:00 109 H 15 110/74 95 11/12/20 22:44 20 11/12/20 22:40 35.8 C L 106 H 22 115/84 H 98 11/12/20 22:00 21 11/12/20 21:20 36.1 C L 98 24 108/84 H 96 11/12/20 20:47 19 11/12/20 20:20 36.0 C L 97 24 102/68 95 11/12/20 19:28 22 11/12/20 19:19 36.6 C 96 22 132/90 H 97 11/12/20 18:50 36.6 C 90 16 118/87 H 97 11/12/20 18:20 36.8 C 95 20 123/84 H 98 11/12/20 18:05 36.6 C 97 24 130/86 H 96 03/30/21 17:50 36.7 C 93 16 112/84 H 96 - Physical Exam Eyes Bilateral: positive: Normal inspection, Conjunctivae nml ENT: positive: ENT inspection nml Neck: positive: Nml inspection Respiratory: positive: No respiratory distress. negative: Wheezes, Rales Cardiovascular: positive: Regular rate & rhythm, No murmur. negative: Tachycar jill Abdomen: positive: No distention, Tenderness (Minimal diffuse tenderness.), Other (MARGARETTE drain in place with sanguinous output.). negative: Guarding, Rebound Skin: positive: Warm, Dry Extremities: positive: No pedal edema Neurologic/Psychiatric: positive: Motor nml. negative: Disoriented to person, Disoriented to place, Disoriented to time Conclusion/Plan - Diagnosis Diagnosis: 1) NSTEMI. 2) Syncope. 3) Acute kidney injury. 4) Lactic acidosis. 5) Status post ileostomy reversal - Plan Plan: I spoke with Dr. Pal of general surgery and I recommend giving a dose of aspirin 325 mg now. I have also recommended initiating heparin although he prefers to do this without a bolus given the patient's recent surgical intervention. We will hold off on the beta-gil as he is currently normotensive. His EKG does not suggest any obvious ischemia although his QTC is prolonged at 520. We will obtain an echocardiogram in the morning to look for wall motion abnormalities. Monitor on telemetry. Trend troponin. The patient will be transferred to the intensive care unit for closer monitoring. His syncope may be related to the prolonged QTC. I did review the telemetry and initially there was concern that he may have been in atrial fibrillation based off of lead II. Lead III revealed a sinus rhythm throughout this whole episode. EKG obtained immediately after continues to show sinus rhythm. Have recommended to discontinue Reglan given the prolonged QTC and avoid all med ications that may prolong this. His labs also not reveal acute kidney injury with a creatinine of 1.9. His BUN is not significantly elevated. This may be due to hypovolemia. We will hydrate him with lactated Ringer's and recheck renal function the morning. Avoid nephrotoxins. He does have a lactic acid greater than 10 and at this point time it is not clear if this is from sepsis or due to the NSTEMI. He is currently not hypotensive. His white count is elevated greater than 20,000 with bands although this may also be reactive given his surgical intervention later on in the day and the concern for recent NSTEMI. Unless you hydrated with IV fluids and trend the lactic acid. He is already on Zosyn IV which we will continue. Thank you for this consult we will continue to follow the patient closely. - Lab Results Lab results reviewed: Yes Fish Bones: 11/13/20 01:40 11/13/20 01:40 - EKG Results EKG Interpreted Independently: Yes EKG Comparison: Changed from prior EKG EKG Findings: EKG today reveals sinus tachycardia. His QTC is prolonged at over 520 which is new compared to the prior EKG. No obvious ischemic changes.
[2020-11-13 01:59] LABS: CALCIUM 8.6 mg/dL (8.5-10.3); CREATININE 1.9 mg/dL (0.6-1.2); POTASSIUM 5.7 mmol/L (3.5-5.0)
[2020-11-13] MEDS ORDERED: INSULIN REGULAR HUMAN 300 UNIT/3 ML VIAL IVP ONE (02:01)
[2020-11-13] MEDS: ACETAMINOPHEN 1,000 MG/100 ML 100 ML IV SCH ×4 (02:07→20:56)
[2020-11-13] MEDS ORDERED: LACTATED RINGERS 1,000 ML IV ONE ×3 (02:20→06:56)
[2020-11-13 02:33] LABS: ABG HCO3 11.7 mmol/L (22.0-26.0); ABG PH 7.29 (7.35-7.45); ABG PO2 79 mmHg (80-100)
[2020-11-13 02:34] LABS: ABG BASE EXCESS -13.2 mmol/L (-2.0-3.0); ABG OXYGEN SATURATION 95 % (94-98); ABG TCO2 12.4 MMOL/L (21.0-29.0); ALLEN TEST POSITIVE
[2020-11-13 02:35] LABS: ABG FRACTION OF INSPIRED O2 0.21; ABG PCO2 25 mmHg (34-45)
[2020-11-13] MEDS: HEPARIN 25000UNITS/500ML (D5W) 25,000 UNIT/500 ML BAG IV SCH ×2 (02:36→22:43)
[2020-11-13] MEDS: SODIUM CHLORIDE FLUSH 0.9% 10 ML SYRINGE IVP SCH ×3 (02:39→17:09)
[2020-11-13] MEDS: PIPERACILLIN/TAZOBACTAM 3.375 GM in SODIUM CHLORIDE 0.9% MINIBAG 100 ML IV SCH ×3 (02:45→18:11)
[2020-11-13] MEDS ORDERED: LACTATED RINGERS 1,000 ML IV SCH (03:00)
[2020-11-13] MEDS ORDERED: SODIUM CHLORIDE 0.9% 500 ML IV PRN (04:04)
[2020-11-13] MEDS: ONDANSETRON 4 MG/2 ML VIAL IVP PRN (05:12)
[2020-11-13] MEDS: HYDROmorphone 1 MG/ML CARPUJECT IVP PRN ×5 (05:42→22:46)
[2020-11-13] MEDS: SODIUM CHLORIDE FLUSH 0.9% 10 ML SYRINGE IVP PRN ×2 (05:43)
[2020-11-13 06:00] LABS: BASOPHILS % (AUTO) 0.2 %; EOSINOPHILS % (AUTO) 0.5 %; HCT - HEMATOCRIT 30.9 % (42.0-52.0); HGB - HEMOGLOBIN 10.5 g/dL (14.0-18.0); LYMPHOCYTES % (AUTO) 5.6 %; MEAN CORPUSCULAR HEMOGLOBIN 29.8 pg (27.0-31.0); MEAN CORPUSCULAR VOLUME 87.8 fL (80.0-94.0); MEAN PLATELET VOLUME 10.4 fL (7.4-11.4); NEUTROPHILS % (AUTO) 86.1 %; PLT - PLATELET COUNT 235 10^3/uL (130-450); RED BLOOD COUNT 3.52 10^6/uL (4.70-6.10); RED CELL DISTRIBUTION WIDTH 13.6 % (12.0-15.0); WHITE BLOOD COUNT 24.3 x10^3/uL (4.8-10.8)
[2020-11-13 06:02] LABS: ABNORMAL LYMPHS % (MANUAL) 0 %
[2020-11-13 06:07] LABS: CALCIUM 8.6 mg/dL (8.5-10.3); CREATININE 1.5 mg/dL (0.6-1.2); POTASSIUM 4.5 mmol/L (3.5-5.0)
[2020-11-13 06:18] LABS: MAGNESIUM 1.5 mg/dL (1.7-2.8); PHOSPHORUS 3.6 mg/dL (2.5-4.6)
[2020-11-13 06:21] LABS: BAND NEUTROPHILS % (MANUAL) 9 %; DIFFERENTIAL COMMENT MANUAL DIFFERENTIAL; LYMPHOCYTES # (MANUAL) 1.2 10^3/uL (1.5-3.5); LYMPHOCYTES % (MANUAL) 5 %; MONOCYTES # (MANUAL) 1.2 10^3/uL (0.0-1.0); NEUTROPHILS # (MANUAL) 21.9 10^3/uL (1.5-6.6); PLATELET ESTIMATE, MANUAL NORMAL (130-450,000) (NORMAL); RBC MORPHOLOGY (MULTIPLE) NORMAL APPEARANCE (NORMAL)
--- NOTE | 2020-11-13 08:50 | PROVIDER PROGRESS NOTE ---
Subjective - Prog Note Date Prog Note Date: 11/13/20 Prog Note Time: 08:48 - Subjective Subjective: tired, nauseated. not much sleep last night so tired. no cp, no sob. troponins have been high but not rising. EKG has not shows acute changes and tele is sinus tach. We were asked to see this patient postoperatively for syncope yesterday. He had a complicated perforated diverticulitis with pelvic abscess and failed therapy. His first presentation of diverticulitis with perforation was in 2016. Treated medically. Presented again August 2020. Treated in the outpatient setting and then failed outpatient management and was admitted September 13. On September 24, he eventually underwent a diagnostic laparoscopy, lysis of adhesions, anterior resection and low pelvic anastomosis, splenic flexure mobilization, laparoscopic loop ileostomy and drainage of the abscess/phlegmon necessitating Pfannenstiel.. He also had takedown of enterocolic fistulas. He was discharged October 06. Postoperatively seen October 21 in the outpatient surgery clinic. [place] to be in good condition to undergo ileostomy reversal and small bowel resection. Extensive adhesiolysis had to occur with right colonic mobilization. This occurred November 12. Right before midnight of November 13, the patient attempted to get out of bed and had a syncopal episode. Laboratory evaluation showed him to have an elevated troponin, lactic acidosis, a creatinine that had doubled from 0.9-1.9. Between last night and today his troponins have stayed elevated but stable. Troponin number one 409.6. Troponin number two 362.4. Troponin number three 407.4. His creatinine is 1.5 this morning. Lactic acid came down from 10->>6.8 after fluid resuscitation. White cell count on admission was 12.3. With the event it was 27,000. This morning he is 24.3. Current Medications - Current Medications Current Medications: Active Medications Albuterol (Albuterol Neb 2.5 Mg/3 Ml) 2.5 mg INH Q4HR PRN PRN Reason: Wheezing Docusate Sodium (Docusate Sodium 100 Mg Capsule) 100 mg PO BID ASHWIN Last Admin: 11/12/20 21:55 Dose: 100 mg Documented by: Hydromorphone HCl (Hydromorphone 1 Mg/Ml Carpuject) 1 mg IVP Q2HR PRN PRN Reason: PAIN Last Admin: 11/13/20 05:42 Dose: 1 mg Documented by: Piperacillin Sod/Tazobactam (Sod 3.375 gm/ Sodium Chloride) 100 mls @ 25 mls/hr IV Q8H [facility] Last Admin: 11/13/20 02:45 Dose: 25 mls/hr Documented by: Heparin Sodium/Dextrose (Heparin Sodium/Dextrose) 25,000 unit in 500 mls @ 22.92 mls/hr IV .[id number] [facility]; Protocol Last Admin: 11/13/20 02:36 Dose: 12 unit/kg/hr, 22.92 mls/hr Documented by: Sodium Chloride (Normal Saline 0.9%) 500 mls @ 20 mls/hr IV Q24H PRN PRN Reason: TKO RATE Magnesium Sulfate (Magnesium Sulfate) 2 gm in 50 mls @ 50 mls/hr IV ONCE ONE; Protocol Stop: 11/13/20 09:59 Lactated Ringer's (Lr) 1,000 mls @ 150 mls/hr IV .[id number] [facility] Acetaminophen (Ofirmev) 100 mls @ 400 mls/hr IV Q6H [facility] Ipratropium [place] (Ipratropium 0.2 Mg/Ml Neb) 0.5 mg INH Q6HR PRN PRN Reason: Wheezing Methocarbamol (Methocarbamol 500 Mg Tablet) 500 mg PO Q6HR [facility] Last Admin: 11/13/20 06:34 Dose: Not Given Documented by: Ondansetron HCl (Ondansetron 4 Mg/2 Ml Vial) 4 mg IVP Q6HR PRN PRN Reason: Nausea / Vomiting Last Admin: 11/13/20 05:12 Dose: 4 mg Documented by: Polyethylene Glycol (Polyethylene Glycol 3350 17 Gm Packet) 17 gm PO BID [facility] Last Admin: 11/12/20 21:56 Dose: Not Given Documented by: Pregabalin (Pregabalin 100 Mg Capsule) 100 mg PO BID [facility] Last Admin: 11/12/20 21:55 Dose: 100 mg Documented by: Sodium Chloride (Sodium Chloride Flush 0.9% 10 Ml Syringe) 10 ml IVP 0100,0900,1700 [facility] Last Admin: 11/13/20 02:39 Dose: 10 ml Documented by: Sodium Chloride (Sodium Chloride Flush 0.9% 10 Ml Syringe) 10 ml IVP PRN PRN PRN Reason: NEEDED PER PROVIDER ORDERS Last Admin: 11/13/20 05:43 Dose: 10 ml Documented by: Sodium Chloride (Sodium Chloride Flush 0.9% 10 Ml Syringe) 20 ml IVP PRN PRN PRN Reason: After Blood Draw Last Admin: 11/13/20 05:43 Dose: 20 ml Documented by: Acetaminophen [Tylenol] 500 mg PO DAILY 11/12/20 Objective - Vital Signs/Intake & Output Reviewed Vital Signs: Yes Vital Signs: Vital Signs x48h Temp Pulse Pulse Resp BP Pulse Ox 11/13/20 07:00 104 H 21 130/94 H 97 11/13/20 06:00 103 H 20 130/89 H 96 11/13/20 05:00 36.8 C 100 25 H 137/95 H 98 11/13/20 04:00 97 22 147/100 H 99 11/13/20 03:00 95 22 135/101 H 99 11/13/20 02:45 142 H 21 142/92 H 98 11/13/20 02:28 96 22 120/83 H 99 Intake & Output: Intake & Output 11/10/20 11/11/20 11/12/20 11/13/20 23:59 23:59 23:59 23:59 Intake Total 108.461 6375.667 Output Total 500 1020 Balance 258.333 921.667 - Objective General Appearance: positive: No acute distress, Lethargic Eyes Bilateral: positive: PERRL, EOMI ENT: positive: No signs of dehydration Neck: positive: No JVD Respiratory: positive: No respiratory distress, Rales. negative: Wheezes, Rh onchi Cardiovascular: positive: Regular rate & rhythm. negative: Systolic murmur, Gallop/S4 Abdomen: positive: No distention, Tenderness, Abnml bowel sounds (one sound in post op patient). negative: Guarding, Rebound Skin: positive: Warm, Diaphoresis, Pallor Extremities: positive: Full ROM, No pedal edema Neurologic/Psychiatric: positive: Oriented x3, CN's nml (2-12), Motor nml, Slurred/abnml speech (speech slow and hesitant as he wakes up) - Lab Results Fish Bones: 11/13/20 05:50 11/13/20 05:50 Other Labs: Lab Results x24hrs 11/13/20 11/13/20 11/13/20 Range/Units 05:52 05:50 05:50 WBC (4.8-10.8) x10^3/uL RBC (4.70-6.10) 10^6/uL Hgb (14.0-18.0) g/dL Hct (42.0-52.0) % MCV (80.0-94.0) fL MCH (27.0-31.0) pg MCHC (32.0-36.0) g/dL RDW (12.0-15.0) % Plt Count (130-450) 10^3/uL MPV (7.4-11.4) fL Neut # (Auto) (1.5-6.6) 10^3/uL Lymph # (Auto) (1.5-3.5) 10^3/uL [place] # (Auto) (0.0-1.0) 10^3/uL Eos # (Auto) (0.0-0.7) 10^3/uL Baso # (Auto) (0.0-0.1) 10^3/uL Absolute Nucleated RBC x10^3/uL Total Counted Band Neuts % (Manual) (0 - 10) % Abnorm Lymph % (Manual) % Nucleated RBC % /100WBC Neutrophils # (Manual) (1.5-6.6) 10^3/uL Lymphocytes # (Manual) (1.5-3.5) 10^3/uL Monocytes # (Manual) (0.0-1.0) 10^3/uL Eosinophils # (Manual) (0-0.7) 10^3/uL Basophils # (Manual) (0-0.1) 10^3/uL Differential Comment Platelet Estimate (NORMAL) RBC Morph Micro Appear (NORMAL) PT (9.9-12.6) secs INR (0.8-1.2) Anti-Xa Level ( - 0.7) U/mL Bld Gas Analysis Time Sample Site ABG pH (7.35-7.45) ABG pCO2 (34-45) mmHg ABG pO2 (80-100) mmHg ABG HCO3 (22.0-26.0) mmol/L ABG Total CO2 (21.0-29.0) MMOL/L ABG O2 Saturation (94-98) % ABG Base Excess (-2.0-3.0) mmol/L Jose Test Room Air FiO2 Sodium 135 (135-145) mmol/L Potassium 4.5 (3.5-5.0) mmol/L Chloride 103 (101-111) mmol/L Carbon Dioxide 18 L (21-32) mmol/L Anion Gap 14.0 H (6-13) BUN 22 H (6-20) mg/dL Creatinine 1.5 H (0.6-1.2) mg/dL Estimated GFR (MDRD) 49 L (>89) Glucose 216 H (70-100) mg/dL POC Whole Bld Glucose 194 H (70 - 100) mg/dL Lactic Acid (0.5-2.2) mmol/L Calcium 8.6 (8.5-10.3) mg/dL Phosphorus 3.6 (2.5-4.6) mg/dL Magnesium 1.5 L (1.7-2.8) mg/dL Total Bilirubin (0.2-1.0) mg/dL Direct Bilirubin (0.1-0.5) mg/dL AST (10-42) IU/L ALT (10-60) IU/L Alkaline Phosphatase (42-121) IU/L Troponin I High Sens (2.3-19.7) ng/L Total Protein (6.7-8.2) g/dL Albumin (3.2-5.5) g/dL Globulin (2.1-4.2) g/dL Albumin/Globulin Ratio (1.0-2.2) Nasal Screen MRSA (PCR) (NEGATIVE) Blood Type Blood Type Recheck Antibody Screen 11/13/20 11/13/20 11/13/20 Range/Units 05:50 05:50 05:50 WBC 24.3 H (4.8-10.8) x10^3/uL RBC 3.52 L (4.70-6.10) 10^6/uL Hgb 10.5 L (14.0-18.0) g/dL Hct 30.9 L (42.0-52.0) % MCV 87.8 (80.0-94.0) fL MCH 29.8 (27.0-31.0) pg MCHC 34.0 (32.0-36.0) g/dL RDW 13.6 (12.0-15.0) % Plt Count 235 (130-450) 10^3/uL MPV 10.4 (7.4-11.4) fL Neut # (Auto) Not Reportable (1.5-6.6) 10^3/uL Lymph # (Auto) Not Reportable (1.5-3.5) 10^3/uL [place] # (Auto) Not Reportable (0.0-1.0) 10^3/uL Eos # (Auto) Not Reportable (0.0-0.7) 10^3/uL Baso # (Auto) Not Reportable (0.0-0.1) 10^3/uL Absolute Nucleated RBC Not Reportable x10^3/uL Total Counted 100 Band Neuts % (Manual) 9 (0 - 10) % Abnorm Lymph % (Manual) 0 % Nucleated RBC % Not Reportable /100WBC Neutrophils # (Manual) 21.9 H (1.5-6.6) 10^3/uL Lymphocytes # (Manual) 1.2 L (1.5-3.5) 10^3/uL Monocytes # (Manual) 1.2 H (0.0-1.0) 10^3/uL Eosinophils # (Manual) 0.0 (0-0.7) 10^3/uL Basophils # (Manual) 0.0 (0-0.1) 10^3/uL Differential Comment MANUAL DIFFERENTIAL Platelet Estimate NORMAL (130-450,000) (NORMAL) RBC Morph Micro Appear NORMAL APPEARANCE (NORMAL) PT (9.9-12.6) secs INR (0.8-1.2) Anti-Xa Level ( - 0.7) U/mL Bld Gas Analysis Time Sample Site ABG pH (7.35-7.45) ABG pCO2 (34-45) mmHg ABG pO2 (80-100) mmHg ABG HCO3 (22.0-26.0) mmol/L ABG Total CO2 (21.0-29.0) MMOL/L ABG O2 Saturation (94-98) % ABG Base Excess (-2.0-3.0) mmol/L Jose Test Room Air FiO2 Sodium (135-145) mmol/L Potassium (3.5-5.0) mmol/L Chloride (101-111) mmol/L Carbon Dioxide (21-32) mmol/L Anion Gap (6-13) BUN (6-20) mg/dL Creatinine (0.6-1.2) mg/dL Estimated GFR (MDRD) (>89) Glucose (70-100) mg/dL POC Whole Bld Glucose (70 - 100) mg/dL Lactic Acid 6.8 H* (0.5-2.2) mmol/L Calcium (8.5-10.3) mg/dL Phosphorus (2.5-4.6) mg/dL Magnesium (1.7-2.8) mg/dL Total Bilirubin (0.2-1.0) mg/dL Direct Bilirubin (0.1-0.5) mg/dL AST (10-42) IU/L ALT (10-60) IU/L Alkaline Phosphatase (42-121) IU/L Troponin I High Sens 407.4 H* (2.3-19.7) ng/L Total Protein (6.7-8.2) g/dL Albumin (3.2-5.5) g/dL Globulin (2.1-4.2) g/dL Albumin/Globulin Ratio (1.0-2.2) Nasal Screen MRSA (PCR) (NEGATIVE) Blood Type Blood Type Recheck Antibody Screen 11/13/20 11/13/20 11/13/20 Range/Units 02:20 02:00 01:40 WBC (4.8-10.8) x10^3/uL RBC (4.70-6.10) 10^6/uL Hgb (14.0-18.0) g/dL Hct (42.0-52.0) % MCV (80.0-94.0) fL MCH (27.0-31.0) pg MCHC (32.0-36.0) g/dL RDW (12.0-15.0) % Plt Count (130-450) 10^3/uL MPV (7.4-11.4) fL Neut # (Auto) (1.5-6.6) 10^3/uL Lymph # (Auto) (1.5-3.5) 10^3/uL [place] # (Auto) (0.0-1.0) 10^3/uL Eos # (Auto) (0.0-0.7) 10^3/uL Baso # (Auto) (0.0-0.1) 10^3/uL Absolute Nucleated RBC x10^3/uL Total Counted Band Neuts % (Manual) (0 - 10) % Abnorm Lymph % (Manual) % Nucleated RBC % /100WBC Neutrophils # (Manual) (1.5-6.6) 10^3/uL Lymphocytes # (Manual) (1.5-3.5) 10^3/uL Monocytes # (Manual) (0.0-1.0) 10^3/uL Eosinophils # (Manual) (0-0.7) 10^3/uL Basophils # (Manual) (0-0.1) 10^3/uL Differential Comment Platelet Estimate (NORMAL) RBC Morph Micro Appear (NORMAL) PT (9.9-12.6) secs INR (0.8-1.2) Anti-Xa Level ( - 0.7) U/mL Bld Gas Analysis Time 0231 Sample Site RIGHT RADIAL ABG pH 7.29 L (7.35-7.45) ABG pCO2 25 L* (34-45) mmHg ABG pO2 79 L (80-100) mmHg ABG HCO3 11.7 L (22.0-26.0) mmol/L ABG Total CO2 12.4 L (21.0-29.0) MMOL/L ABG O2 Saturation 95 (94-98) % ABG Base Excess -13.2 L (-2.0-3.0) mmol/L Jose Test POSITIVE Room Air YES FiO2 0.21 Sodium (135-145) mmol/L Potassium (3.5-5.0) mmol/L Chloride (101-111) mmol/L Carbon Dioxide (21-32) mmol/L Anion Gap (6-13) BUN (6-20) mg/dL Creatinine (0.6-1.2) mg/dL Estimated GFR (MDRD) (>89) Glucose (70-100) mg/dL POC Whole Bld Glucose 310 H (70 - 100) mg/dL Lactic Acid (0.5-2.2) mmol/L Calcium (8.5-10.3) mg/dL Phosphorus (2.5-4.6) mg/dL Magnesium (1.7-2.8) mg/dL Total Bilirubin (0.2-1.0) mg/dL Direct Bilirubin (0.1-0.5) mg/dL AST (10-42) IU/L ALT (10-60) IU/L Alkaline Phosphatase (42-121) IU/L Troponin I High Sens (2.3-19.7) ng/L Total Protein (6.7-8.2) g/dL Albumin (3.2-5.5) g/dL Globulin (2.1-4.2) g/dL Albumin/Globulin Ratio (1.0-2.2) Nasal Screen MRSA (PCR) NEGATIVE (NEGATIVE) Blood Type Blood Type Recheck Antibody Screen 11/13/20 11/13/20 11/13/20 Range/Units 01:40 01:40 01:40 WBC (4.8-10.8) x10^3/uL RBC (4.70-6.10) 10^6/uL Hgb (14.0-18.0) g/dL Hct (42.0-52.0) % MCV (80.0-94.0) fL MCH (27.0-31.0) pg MCHC (32.0-36.0) g/dL RDW (12.0-15.0) % Plt Count (130-450) 10^3/uL MPV (7.4-11.4) fL Neut # (Auto) (1.5-6.6) 10^3/uL Lymph # (Auto) (1.5-3.5) 10^3/uL [place] # (Auto) (0.0-1.0) 10^3/uL Eos # (Auto) (0.0-0.7) 10^3/uL Baso # (Auto) (0.0-0.1) 10^3/uL Absolute Nucleated RBC x10^3/uL Total Counted Band Neuts % (Manual) (0 - 10) % Abnorm Lymph % (Manual) % Nucleated RBC % /100WBC Neutrophils # (Manual) (1.5-6.6) 10^3/uL Lymphocytes # (Manual) (1.5-3.5) 10^3/uL Monocytes # (Manual) (0.0-1.0) 10^3/uL Eosinophils # (Manual) (0-0.7) 10^3/uL Basophils # (Manual) (0-0.1) 10^3/uL Differential Comment Platelet Estimate (NORMAL) RBC Morph Micro Appear (NORMAL) PT (9.9-12.6) secs INR (0.8-1.2) Anti-Xa Level ( - 0.7) U/mL Bld Gas Analysis Time Sample Site ABG pH (7.35-7.45) ABG pCO2 (34-45) mmHg ABG pO2 (80-100) mmHg ABG HCO3 (22.0-26.0) mmol/L ABG Total CO2 (21.0-29.0) MMOL/L ABG O2 Saturation (94-98) % ABG Base Excess (-2.0-3.0) mmol/L Jose Test Room Air FiO2 Sodium 135 (135-145) mmol/L Potassium 5.7 H (3.5-5.0) mmol/L Chloride 101 (101-111) mmol/L Carbon Dioxide 14 L (21-32) mmol/L Anion Gap 20.0 H (6-13) BUN 22 H (6-20) mg/dL Creatinine 1.9 H (0.6-1.2) mg/dL Estimated GFR (MDRD) 37 L (>89) Glucose 353 H (70-100) mg/dL POC Whole Bld Glucose (70 - 100) mg/dL Lactic Acid > 10.0 H* (0.5-2.2) mmol/L Calcium 8.6 (8.5-10.3) mg/dL Phosphorus (2.5-4.6) mg/dL Magnesium (1.7-2.8) mg/dL Total Bilirubin (0.2-1.0) mg/dL Direct Bilirubin (0.1-0.5) mg/dL AST (10-42) IU/L ALT (10-60) IU/L Alkaline Phosphatase (42-121) IU/L Troponin I High Sens 362.4 H* (2.3-19.7) ng/L Total Protein (6.7-8.2) g/dL Albumin (3.2-5.5) g/dL Globulin (2.1-4.2) g/dL Albumin/Globulin Ratio (1.0-2.2) Nasal Screen MRSA (PCR) (NEGATIVE) Blood Type Blood Type Recheck Antibody Screen 11/13/20 11/13/20 11/13/20 Range/Units 01:40 01:40 01:40 WBC 28.7 H (4.8-10.8) x10^3/uL RBC 4.17 L (4.70-6.10) 10^6/uL Hgb 12.4 L (14.0-18.0) g/dL Hct 37.5 L (42.0-52.0) % MCV 89.9 (80.0-94.0) fL MCH 29.7 (27.0-31.0) pg MCHC 33.1 (32.0-36.0) g/dL RDW 13.5 (12.0-15.0) % Plt Count 271 (130-450) 10^3/uL MPV 10.0 (7.4-11.4) fL Neut # (Auto) (1.5-6.6) 10^3/uL Lymph # (Auto) (1.5-3.5) 10^3/uL [place] # (Auto) (0.0-1.0) 10^3/uL Eos # (Auto) (0.0-0.7) 10^3/uL Baso # (Auto) (0.0-0.1) 10^3/uL Absolute Nucleated RBC x10^3/uL Total Counted Band Neuts % (Manual) (0 - 10) % Abnorm Lymph % (Manual) % Nucleated RBC % /100WBC Neutrophils # (Manual) (1.5-6.6) 10^3/uL Lymphocytes # (Manual) (1.5-3.5) 10^3/uL Monocytes # (Manual) (0.0-1.0) 10^3/uL Eosinophils # (Manual) (0-0.7) 10^3/uL Basophils # (Manual) (0-0.1) 10^3/uL Differential Comment Platelet Estimate (NORMAL) RBC Morph Micro Appear (NORMAL) PT (9.9-12.6) secs INR (0.8-1.2) Anti-Xa Level 0.0 ( - 0.7) U/mL Bld Gas Analysis Time Sample Site ABG pH (7.35-7.45) ABG pCO2 (34-45) mmHg ABG pO2 (80-100) mmHg ABG HCO3 (22.0-26.0) mmol/L ABG Total CO2 (21.0-29.0) MMOL/L ABG O2 Saturation (94-98) % ABG Base Excess (-2.0-3.0) mmol/L Jose Test Room Air FiO2 Sodium (135-145) mmol/L Potassium (3.5-5.0) mmol/L Chloride (101-111) mmol/L Carbon Dioxide (21-32) mmol/L Anion Gap (6-13) BUN (6-20) mg/dL Creatinine (0.6-1.2) mg/dL Estimated GFR (MDRD) (>89) Glucose (70-100) mg/dL POC Whole Bld Glucose (70 - 100) mg/dL Lactic Acid (0.5-2.2) mmol/L Calcium (8.5-10.3) mg/dL Phosphorus (2.5-4.6) mg/dL Magnesium (1.7-2.8) mg/dL Total Bilirubin (0.2-1.0) mg/dL Direct Bilirubin (0.1-0.5) mg/dL AST (10-42) IU/L ALT (10-60) IU/L Alkaline Phosphatase (42-121) IU/L Troponin I High Sens (2.3-19.7) ng/L Total Protein (6.7-8.2) g/dL Albumin (3.2-5.5) g/dL Globulin (2.1-4.2) g/dL Albumin/Globulin Ratio (1.0-2.2) Nasal Screen MRSA (PCR) (NEGATIVE) Blood Type Blood Type Recheck O POSITIVE Antibody Screen 11/13/20 11/13/20 11/13/20 Range/Units 00:31 00:31 00:31 WBC 27.0 H (4.8-10.8) x10^3/uL RBC 4.09 L (4.70-6.10) 10^6/uL Hgb 12.0 L (14.0-18.0) g/dL Hct 37.2 L (42.0-52.0) % MCV 91.0 (80.0-94.0) fL MCH 29.3 (27.0-31.0) pg MCHC 32.3 (32.0-36.0) g/dL RDW 13.6 (12.0-15.0) % Plt Count 260 (130-450) 10^3/uL MPV 10.0 (7.4-11.4) fL Neut # (Auto) Not Reportable (1.5-6.6) 10^3/uL Lymph # (Auto) Not Reportable (1.5-3.5) 10^3/uL [place] # (Auto) Not Reportable (0.0-1.0) 10^3/uL Eos # (Auto) Not Reportable (0.0-0.7) 10^3/uL Baso # (Auto) Not Reportable (0.0-0.1) 10^3/uL Absolute Nucleated RBC Not Reportable x10^3/uL Total Counted 100 Band Neuts % (Manual) 19 H (0 - 10) % Abnorm Lymph % (Manual) 0 % Nucleated RBC % Not Reportable /100WBC Neutrophils # (Manual) 24.3 H (1.5-6.6) 10^3/uL Lymphocytes # (Manual) 1.1 L (1.5-3.5) 10^3/uL Monocytes # (Manual) 1.4 H (0.0-1.0) 10^3/uL Eosinophils # (Manual) 0.3 (0-0.7) 10^3/uL Basophils # (Manual) 0.0 (0-0.1) 10^3/uL Differential Comment MANUAL DIFFERENTIAL Platelet Estimate NORMAL (130-450,000) (NORMAL) RBC Morph Micro Appear NORMAL APPEARANCE (NORMAL) PT (9.9-12.6) secs INR (0.8-1.2) Anti-Xa Level ( - 0.7) U/mL Bld Gas Analysis Time Sample Site ABG pH (7.35-7.45) ABG pCO2 (34-45) mmHg ABG pO2 (80-100) mmHg ABG HCO3 (22.0-26.0) mmol/L ABG Total CO2 (21.0-29.0) MMOL/L ABG O2 Saturation (94-98) % ABG Base Excess (-2.0-3.0) mmol/L Jose Test Room Air FiO2 Sodium 135 (135-145) mmol/L Potassium 4.6 (3.5-5.0) mmol/L Chloride 100 L (101-111) mmol/L Carbon Dioxide 13 L (21-32) mmol/L Anion Gap 22.0 H (6-13) BUN 21 H (6-20) mg/dL Creatinine 1.9 H (0.6-1.2) mg/dL Estimated GFR (MDRD) 37 L (>89) Glucose 373 H (70-100) mg/dL POC Whole Bld Glucose (70 - 100) mg/dL Lactic Acid (0.5-2.2) mmol/L Calcium 8.4 L (8.5-10.3) mg/dL Phosphorus 7.0 H (2.5-4.6) mg/dL Magnesium 1.7 (1.7-2.8) mg/dL Total Bilirubin 2.1 H (0.2-1.0) mg/dL Direct Bilirubin 0.4 (0.1-0.5) mg/dL AST 32 (10-42) IU/L ALT 36 (10-60) IU/L Alkaline Phosphatase 57 (42-121) IU/L Troponin I High Sens (2.3-19.7) ng/L Total Protein 6.4 L (6.7-8.2) g/dL Albumin 3.6 (3.2-5.5) g/dL Globulin 2.8 (2.1-4.2) g/dL Albumin/Globulin Ratio (1.0-2.2) Nasal Screen MRSA (PCR) (NEGATIVE) Blood Type O POSITIVE Blood Type Recheck Antibody Screen NEGATIVE 11/13/20 11/13/20 11/12/20 Range/Units 00:31 00:31 09:45 WBC (4.8-10.8) x10^3/uL RBC (4.70-6.10) 10^6/uL Hgb (14.0-18.0) g/dL Hct (42.0-52.0) % MCV (80.0-94.0) fL MCH (27.0-31.0) pg MCHC (32.0-36.0) g/dL RDW (12.0-15.0) % Plt Count (130-450) 10^3/uL MPV (7.4-11.4) fL Neut # (Auto) (1.5-6.6) 10^3/uL Lymph # (Auto) (1.5-3.5) 10^3/uL [place] # (Auto) (0.0-1.0) 10^3/uL Eos # (Auto) (0.0-0.7) 10^3/uL Baso # (Auto) (0.0-0.1) 10^3/uL Absolute Nucleated RBC x10^3/uL Total Counted Band Neuts % (Manual) (0 - 10) % Abnorm Lymph % (Manual) % Nucleated RBC % /100WBC Neutrophils # (Manual) (1.5-6.6) 10^3/uL Lymphocytes # (Manual) (1.5-3.5) 10^3/uL Monocytes # (Manual) (0.0-1.0) 10^3/uL Eosinophils # (Manual) (0-0.7) 10^3/uL Basophils # (Manual) (0-0.1) 10^3/uL Differential Comment Platelet Estimate (NORMAL) RBC Morph Micro Appear (NORMAL) PT (9.9-12.6) secs INR (0.8-1.2) Anti-Xa Level ( - 0.7) U/mL Bld Gas Analysis Time Sample Site ABG pH (7.35-7.45) ABG pCO2 (34-45) mmHg ABG pO2 (80-100) mmHg ABG HCO3 (22.0-26.0) mmol/L ABG Total CO2 (21.0-29.0) MMOL/L ABG O2 Saturation (94-98) % ABG Base Excess (-2.0-3.0) mmol/L Jose Test Room Air FiO2 Sodium 137 (135-145) mmol/L Potassium 4.0 (3.5-5.0) mmol/L Chloride 102 (101-111) mmol/L Carbon Dioxide 20 L (21-32) mmol/L Anion Gap 15.0 H (6-13) BUN 15 (6-20) mg/dL Creatinine 1.0 (0.6-1.2) mg/dL Estimated GFR (MDRD) 78 L (>89) Glucose 147 H (70-100) mg/dL POC Whole Bld Glucose (70 - 100) mg/dL Lactic Acid > 10.0 H* (0.5-2.2) mmol/L Calcium 9.9 (8.5-10.3) mg/dL Phosphorus (2.5-4.6) mg/dL Magnesium (1.7-2.8) mg/dL Total Bilirubin 1.2 H (0.2-1.0) mg/dL Direct Bilirubin (0.1-0.5) mg/dL AST 27 (10-42) IU/L ALT 42 (10-60) IU/L Alkaline Phosphatase 84 (42-121) IU/L Troponin I High Sens 409.6 H* (2.3-19.7) ng/L Total Protein 7.9 (6.7-8.2) g/dL Albumin 4.6 (3.2-5.5) g/dL Globulin 3.3 (2.1-4.2) g/dL Albumin/Globulin Ratio 1.4 (1.0-2.2) Nasal Screen MRSA (PCR) (NEGATIVE) Blood Type Blood Type Recheck Antibody Screen 11/12/20 11/12/20 Range/Units 09:45 09:45 WBC 12.3 H (4.8-10.8) x10^3/uL RBC 5.05 (4.70-6.10) 10^6/uL Hgb 14.7 (14.0-18.0) g/dL Hct 44.4 (42.0-52.0) % MCV 87.9 (80.0-94.0) fL MCH 29.1 (27.0-31.0) pg MCHC 33.1 (32.0-36.0) g/dL RDW 13.3 (12.0-15.0) % Plt Count 240 (130-450) 10^3/uL MPV 9.8 (7.4-11.4) fL Neut # (Auto) 7.3 H (1.5-6.6) 10^3/uL Lymph # (Auto) 3.8 H (1.5-3.5) 10^3/uL [place] # (Auto) 0.7 (0.0-1.0) 10^3/uL Eos # (Auto) 0.2 (0.0-0.7) 10^3/uL Baso # (Auto) 0.1 (0.0-0.1) 10^3/uL Absolute Nucleated RBC 0.00 x10^3/uL Total Counted Band Neuts % (Manual) (0 - 10) % Abnorm Lymph % (Manual) % Nucleated RBC % 0.0 /100WBC Neutrophils # (Manual) (1.5-6.6) 10^3/uL Lymphocytes # (Manual) (1.5-3.5) 10^3/uL Monocytes # (Manual) (0.0-1.0) 10^3/uL Eosinophils # (Manual) (0-0.7) 10^3/uL Basophils # (Manual) (0-0.1) 10^3/uL Differential Comment Platelet Estimate (NORMAL) RBC Morph Micro Appear (NORMAL) PT 11.7 (9.9-12.6) secs INR 1.0 (0.8-1.2) Anti-Xa Level ( - 0.7) U/mL Bld Gas Analysis Time Sample Site ABG pH (7.35-7.45) ABG pCO2 (34-45) mmHg ABG pO2 (80-100) mmHg ABG HCO3 (22.0-26.0) mmol/L ABG Total CO2 (21.0-29.0) MMOL/L ABG O2 Saturation (94-98) % ABG Base Excess (-2.0-3.0) mmol/L Jose Test Room Air FiO2 Sodium (135-145) mmol/L Potassium (3.5-5.0) mmol/L Chloride (101-111) mmol/L Carbon Dioxide (21-32) mmol/L Anion Gap (6-13) BUN (6-20) mg/dL Creatinine (0.6-1.2) mg/dL Estimated GFR (MDRD) (>89) Glucose (70-100) mg/dL POC Whole Bld Glucose (70 - 100) mg/dL Lactic Acid (0.5-2.2) mmol/L Calcium (8.5-10.3) mg/dL Phosphorus (2.5-4.6) mg/dL Magnesium (1.7-2.8) mg/dL Total Bilirubin (0.2-1.0) mg/dL Direct Bilirubin (0.1-0.5) mg/dL AST (10-42) IU/L ALT (10-60) IU/L Alkaline Phosphatase (42-121) IU/L Troponin I High Sens (2.3-19.7) ng/L Total Protein (6.7-8.2) g/dL Albumin (3.2-5.5) g/dL Globulin (2.1-4.2) g/dL Albumin/Globulin Ratio (1.0-2.2) Nasal Screen MRSA (PCR) (NEGATIVE) Blood Type Blood Type Recheck Antibody Screen ABX Reporting Has patient been on IV antibiotics over the past 48 hours?: Yes Assessment/Plan - Problem List (1) NSTEMI (non-ST elevated myocardial infarction) Impression: Continue to check troponins until they start trending down Echocardiogram for this morning. If echocardiogram shows segmental wall abnormalities he will need transfer On heparin drip for minimum of 48 hours Aspirin 325 mg given last night and he will be placed on 81 mg a day We will eventually need Lipitor with low-dose ROYER inhibitor/beta-gil. He is n.p.o. at this time and once he can take medicines we will give him those pills repeat troponins @ 9 am (2) Status post reversal of ileostomy Impression: Postop day 1. Blood pressure stable. Slightly tachycardic at 103-104. Afebrile at 36.8. White cell count high but stable. Zosyn day #2. Plan: We are consulting service. General surgery is managing the patient. (3) Lactic acidosis Impression: Associated with recent surgery.. Patient appears to be dehydrated according to his kidney function. Is being aggressively resuscitated with fluids. We will repeat lactic acid level 9 AM. (4) High blood pressure Impression: on amlodipine at home. BP is 130s/90-100. Stable. Resume meds when can take po. If > 180/100 will need IV treatment prn Qualifiers: Hypertension type: essential hypertension Qualified Code(s): I10 - Essential (primary) hypertension
[2020-11-13] MEDS ORDERED: MAGNESIUM SULFATE 2 GRAM 2 GM/50 ML BAG IV ONE (09:00)
[2020-11-13] MEDS: DOCUSATE SODIUM 100 MG CAPSULE PO SCH ×2 (09:00→21:11)
[2020-11-13] MEDS: PREGABALIN 100 MG CAPSULE PO SCH ×2 (09:00→21:12)
[2020-11-13] MEDS: polyethylene glycoL 3350 17 GM PACKET PO SCH ×2 (09:00→21:12)
[2020-11-13] MEDS: LACTATED RINGERS 1,000 ML IV SCH ×3 (10:00→21:09)
[2020-11-13 14:18] LABS: BASOPHILS % (AUTO) 0.2 %; EOSINOPHILS # (AUTO) 0.2 10^3/uL (0.0-0.7); EOSINOPHILS % (AUTO) 0.7 %; HCT - HEMATOCRIT 25.9 % (42.0-52.0); HGB - HEMOGLOBIN 8.9 g/dL (14.0-18.0); LYMPHOCYTES # (AUTO) 1.6 10^3/uL (1.5-3.5); LYMPHOCYTES % (AUTO) 6.4 %; MEAN CORPUSCULAR HEMOGLOBIN 29.9 pg (27.0-31.0); MEAN CORPUSCULAR HGB CONC 34.4 g/dL (32.0-36.0); MEAN CORPUSCULAR VOLUME 86.9 fL (80.0-94.0); MEAN PLATELET VOLUME 10.3 fL (7.4-11.4); MONOCYTES # (AUTO) 1.6 10^3/uL (0.0-1.0); MONOCYTES % (AUTO) 6.4 %; NEUTROPHILS # (AUTO) 21.3 10^3/uL (1.5-6.6); NEUTROPHILS % (AUTO) 85.6 %; PLT - PLATELET COUNT 216 10^3/uL (130-450); RED BLOOD COUNT 2.98 10^6/uL (4.70-6.10); RED CELL DISTRIBUTION WIDTH 13.8 % (12.0-15.0); WHITE BLOOD COUNT 24.9 x10^3/uL (4.8-10.8)
[2020-11-13 14:24] LABS: SLIDE REVIEW? Indicated
[2020-11-13 14:32] LABS: MAGNESIUM 1.7 mg/dL (1.7-2.8); PHOSPHORUS 2.5 mg/dL (2.5-4.6)
[2020-11-13 14:34] LABS: ALBUMIN/GLOBULIN RATIO 1.1 (1.0-2.2); BILIRUBIN,TOTAL 1.3 mg/dL (0.2-1.0); CALCIUM 8.8 mg/dL (8.5-10.3); CREATININE 1.1 mg/dL (0.6-1.2); POTASSIUM 4.5 mmol/L (3.5-5.0); TOTAL PROTEIN 5.7 g/dL (6.7-8.2)
[2020-11-13 14:43] LABS: RBC MORPHOLOGY (MULTIPLE) 2+ ANISOCYTOSIS (NORMAL)
--- NOTE | 2020-11-13 17:56 | PROVIDER PROGRESS NOTE ---
Progress Note Subjective Patient is status post mini laparotomy, ileostomy reversal, laparoscopic assistance. Patient had syncopal episode on postoperative day #0. EKG has been without any significant changes. He has had no chest pain and no dyspnea. His echocardiography was without any significant wall motion abnormality. Extensive work-up which revealed elevated troponins. He was started on a heparin drip including given aspirin. Suspicion is is that he had demand ischemia with non-STEMI. This was explained to the patient and his . Patient with no chest pain. Reporting abdominal discomfort. Pre-Op Diagnosis: H/O LAR for complicated diverticulitis; distal ileal perf on enterosscopy Procedure Performed: 1. Mini laparotomy 2. Diagnostic laparoscopy 3. Ileostomy reversal and small bowel resection 4. Abdominal washout 5. Drain placement 6. Extensive adhesiolysis including right colonic mobilization Post Op Diagnosis: Same; terminal ileal stricturing; right pelvic side wall adhesions Objective Afebrile, hemodynamically acceptable General Appearance: positive: No acute distress Eyes Bilateral: positive: Normal inspection ENT: positive: ENT inspection nml Neck: positive: Nml inspection Respiratory: positive: Chest non-tender, No respiratory distress, Breath sounds nml. negative: Wheezes, Rales, Rhonchi Cardiovascular: positive: Regular rate & rhythm Extremities: positive: Non-tender, Full ROM, Nml appearance Neurologic/Psychiatric: positive: Oriented x3, CN's nml (2-12) Abdomen soft, appropriately tender, no rebound no guarding, nondistended. Drain output sanguinous. Impression/Plan Postoperative day #1 with elevated troponin, tachycardia, lactic acidosis, as well as syncopal episode. Patient had syncopal episode on postoperative day #0. EKG has been without any significant changes. He has had no chest pain and no dyspnea. His echocardiography was without any significant wall motion abnormality. Extensive work-up which revealed elevated troponins. He was started on a heparin drip including given aspirin. Suspicion is is that he had demand ischemia with non-STEMI. This was explained to the patient and his . Plan going forward is as follows: (1) GI - IVF, bowel regimen, N.p.o. except for meds. GI ppx. Opiate sparring analgesia. (2) SURGERY - Continue Slick drain to gravity no self suction. (3) Renal/Lytes - continue IVF. Renal indices within normal limits. (4) Respiratory - O2 as necessary. Continue IS. If you Tachycardic will order a CTA to decide if there is any indication to rule out pulmonary embolism marina ecially being that its necessary to stop the heparin drip in the setting of acute blood loss anemia. (5) Heme - Will STOP heparin infusion without bolus over concern for acute blood loss anemia. Serial H&H's. Transfuse 2unit pRBC. Transfuse venofer over 5days as well. (6) Cardiovascular - HD acceptable. Continue telemetry. Continue serial troponins. Concern for non-STEMI. Echo with no wall motion abnormality. Transfuse. (7) Neuro - Opiate sparring analgesia. (8) Immune/Infectious Disease - Continue antibiotics
[2020-11-14] MEDS: methocarbamoL 500 MG TABLET PO SCH ×4 (00:02→17:28)
[2020-11-14] MEDS: HYDROmorphone 1 MG/ML CARPUJECT IVP PRN ×11 (02:00→22:55)
[2020-11-14] MEDS: SODIUM CHLORIDE FLUSH 0.9% 10 ML SYRINGE IVP SCH ×3 (02:00→17:14)
[2020-11-14] MEDS: PIPERACILLIN/TAZOBACTAM 3.375 GM in SODIUM CHLORIDE 0.9% MINIBAG 100 ML IV SCH ×2 (02:01→17:25)
[2020-11-14] MEDS: ACETAMINOPHEN 1,000 MG/100 ML 100 ML IV SCH ×4 (02:03→21:00)
[2020-11-14] MEDS: LACTATED RINGERS 1,000 ML IV SCH ×3 (04:31→18:40)
[2020-11-14] MEDS: SODIUM CHLORIDE FLUSH 0.9% 10 ML SYRINGE IVP PRN ×5 (05:24→16:35)
[2020-11-14 06:06] LABS: BASOPHILS % (AUTO) 0.1 %; HCT - HEMATOCRIT 21.4 % (42.0-52.0); LYMPHOCYTES % (AUTO) 7.3 %; MEAN CORPUSCULAR HEMOGLOBIN 29.2 pg (27.0-31.0); MEAN CORPUSCULAR HGB CONC 32.7 g/dL (32.0-36.0); MEAN CORPUSCULAR VOLUME 89.2 fL (80.0-94.0); MEAN PLATELET VOLUME 10.7 fL (7.4-11.4); MONOCYTES % (AUTO) 6.1 %; NEUTROPHILS % (AUTO) 85.5 %; PLT - PLATELET COUNT 176 10^3/uL (130-450); RED CELL DISTRIBUTION WIDTH 14.2 % (12.0-15.0); WHITE BLOOD COUNT 20.3 x10^3/uL (4.8-10.8)
[2020-11-14 06:16] LABS: ABNORMAL LYMPHS % (MANUAL) 0 %
[2020-11-14 06:19] LABS: CALCIUM 8.3 mg/dL (8.5-10.3); CREATININE 0.9 mg/dL (0.6-1.2); MAGNESIUM 2.1 mg/dL (1.7-2.8); PHOSPHORUS 2.5 mg/dL (2.5-4.6); POTASSIUM 3.9 mmol/L (3.5-5.0)
[2020-11-14 06:28] LABS: BAND NEUTROPHILS % (MANUAL) 1 %; DIFFERENTIAL COMMENT MANUAL DIFFERENTIAL; LYMPHOCYTES # (MANUAL) 2.2 10^3/uL (1.5-3.5); LYMPHOCYTES % (MANUAL) 11 %; MONOCYTES # (MANUAL) 1.2 10^3/uL (0.0-1.0); MYELOCYTES % (MANUAL) 1 %; NEUTROPHILS # (MANUAL) 16.6 10^3/uL (1.5-6.6); PLATELET ESTIMATE, MANUAL NORMAL (130-450,000) (NORMAL); RBC MORPHOLOGY (MULTIPLE) NORMAL APPEARANCE (NORMAL)
[2020-11-14] MEDS: DOCUSATE SODIUM 100 MG CAPSULE PO SCH ×2 (08:30→21:22)
[2020-11-14] MEDS: polyethylene glycoL 3350 17 GM PACKET PO SCH ×2 (08:30→21:23)
[2020-11-14] MEDS: PREGABALIN 100 MG CAPSULE PO SCH ×2 (08:32→21:21)
[2020-11-14 08:34] LABS: HCT - HEMATOCRIT 21.7 % (42.0-52.0); HGB - HEMOGLOBIN 7.2 g/dL (14.0-18.0)
[2020-11-14] MEDS: IRON DEXTRAN 200 MG in SODIUM CHLORIDE 0.9% 100ML 100 ML IV SCH (10:15)
--- NOTE | 2020-11-14 18:47 | PROVIDER PROGRESS NOTE ---
Progress Note November 14, 2020 6:40 PM Patient has remained pretty comfortable over the course of the day. He has pain at his incision site. He feels gas rumbling in his belly but no flatus. No nausea. No chest pain no diaphoresis. He has received 1 unit of blood. His hemoglobin was 12.0 on admission. After surgery started slowly dropping to 10.5. And 8.9. He was 7.0 this morning and repeat 7.2. He is comfortable. Tolerated the 1 unit transfusion. Medications are acetaminophen IV, albuterol as needed, Colace, Dilaudid as needed, Atrovent, 1 dose of iron dextran, lactated Ringer's, Robaxin, Zofran, Zosyn, Lyrica. Temperature is 37.4. Pulse is 84. Blood pressure 109/75. Respirations 18. 92% on room air. All day long he has been in the 1 17-1 29 range systolic so this is the lowest he has been. On exam he is an alert, oriented white male who looks his stated age. Tells me he cannot wait to get out of here. Neck is supple. Lungs are clear to auscultation and percussion with slow unlabored respiration. Regular rate and rhythm. Slightly tender abdomen at the incision site. Hypoactive bowel sounds. Extremities warm without edema. He is alert and oriented to person place and time. Able to follow commands. White cell count is 20.3 thousand. Hemoglobin was 7.2 this morning. BMP this morning is normal. Isolated glucose is 127. Repeat troponin for follow-up is 224. Assessment/plan: 1. Elevated troponin. We initially thought he was having an NSTEMI because of the elevation of troponin. He has stayed stable in the 400 range and is started to drop. This entire time he is not had any chest pain, shortness of breath. He is now off heparin. EKG has not had any changes. Plan for an outpatient stress test for completeness sake. But again we think this is demand ischemic changes from someone who underwent surgery, and was dehydrated. 2. Status post reversal of ileostomy. Postop day #2. Zosyn day #3. General surgery is managing. Postoperative progression and recovery is progressing. 3. Lactic acidosis resolved. After surgery and was syncope his lactic acid was greater than 10. With hydration he went to 6.8, then 5.7 and yesterday afternoon was 2.4. We have thought about the possibility of infection. He has an elevated white cell count, lactic acidosis. But chest x-ray has been clear. He does have right subdiaphragmatic free air but that is with surgery. No acute cardiopulmonary abnormalities. No fever. Negative abdominal exam other than incisional pain. We are attributing the lactic acidosis to dehydration and intravascular depletion. 4. Hypertension. He has not required treatment
[2020-11-14 18:49] LABS: HCT - HEMATOCRIT 22.7 % (42.0-52.0); HGB - HEMOGLOBIN 7.6 g/dL (14.0-18.0); MEAN CORPUSCULAR HEMOGLOBIN 29.6 pg (27.0-31.0); MEAN CORPUSCULAR HGB CONC 33.5 g/dL (32.0-36.0); MEAN CORPUSCULAR VOLUME 88.3 fL (80.0-94.0); MEAN PLATELET VOLUME 10.4 fL (7.4-11.4); RED BLOOD COUNT 2.57 10^6/uL (4.70-6.10); RED CELL DISTRIBUTION WIDTH 14.5 % (12.0-15.0); WHITE BLOOD COUNT 19.8 x10^3/uL (4.8-10.8)
--- NOTE | 2020-11-14 19:09 | PROVIDER PROGRESS NOTE ---
Progress Note Subjective Patient is status post mini laparotomy, ileostomy reversal, laparoscopic assistance. Patient had syncopal episode on postoperative day #0. EKG has been without any significant changes. He has had no chest pain and no dyspnea. His echocardiography was without any significant wall motion abnormality. Extensive work-up which revealed elevated troponins. He was started on a heparin drip including given aspirin. Suspicion is is that he had demand ischemia with non-STEMI. This was explained to the patient and his . Patient with no chest pain. Reporting abdominal discomfort. Remains in ICU. Pre-Op Diagnosis: H/O LAR for complicated diverticulitis; distal ileal perf on enterosscopy Procedure Performed: 1. Mini laparotomy 2. Diagnostic laparoscopy 3. Ileostomy reversal and small bowel resection 4. Abdominal washout 5. Drain placement 6. Extensive adhesiolysis including right colonic mobilization Post Op Diagnosis: Same; terminal ileal stricturing; right pelvic side wall adhesions Objective Afebrile, hemodynamically acceptable General Appearance: positive: No acute distress Eyes Bilateral: positive: Normal inspection ENT: positive: ENT inspection nml Neck: positive: Nml inspection Respiratory: positive: Chest non-tender, No respiratory distress, Breath sounds nml. negative: Wheezes, Rales, Rhonchi Cardiovascular: positive: Regular rate & rhythm Extremities: positive: Non-tender, Full ROM, Nml appearance Neurologic/Psychiatric: positive: Oriented x3, CN's nml (2-12) Abdomen soft, appropriately tender, no rebound no guarding, nondistended. Drain output sanguinous. Impression/Plan Postoperative day #2 with elevated troponin, tachycardia, lactic acidosis, as well as syncopal episode. Patient had syncopal episode on postoperative day #0. EKG has been without any significant changes. He has had no chest pain and no dyspnea. His echocardiography was without any significant wall motion abnormality. Extensive work-up which revealed elevated troponins. He was started on a heparin drip including given aspirin. Suspicion is is that he had demand ischemia with non-STEMI. This was explained to the patient and his . Anemia, thus discontinued the Hep gtt. Plan transfusion. Plan going forward is as follows: (1) GI - IVF, bowel regimen, N.p.o. except for meds. GI ppx. Opiate sparring analgesia. (2) SURGERY - Continue Slick drain to gravity no self suction. (3) Renal/Lytes - continue IVF. Renal indices within normal limits. Voiding by lowery. (4) Respiratory - O2 as necessary. Continue IS. If you Tachycardic will order a CTA to decide if there is any indication to rule out pulmonary embolism especially being that its necessary to stop the heparin drip in the setting of acute blood loss anemia. (5) Heme - STOPPED heparin infusion without bolus over concern for acute blood loss anemia. Serial H&H's. Transfused 2unit pRBC. Transfuse venofer over 5days as well. (6) Cardiovascular - HD acceptable. Continue telemetry. Continue serial troponins. Concern for non-STEMI. Echo with no wall motion abnormality. Transfuse. (7) Neuro - Opiate sparring analgesia. (8) Immune/Infectious Disease - Continue antibiotics
[2020-11-15] MEDS: methocarbamoL 500 MG TABLET PO SCH ×5 (00:06→23:34)
[2020-11-15] MEDS: HYDROmorphone 1 MG/ML CARPUJECT IVP PRN ×10 (00:39→20:31)
[2020-11-15] MEDS: SODIUM CHLORIDE FLUSH 0.9% 10 ML SYRINGE IVP SCH ×4 (00:39→23:35)
[2020-11-15] MEDS: LACTATED RINGERS 1,000 ML IV SCH ×3 (01:49→19:07)
[2020-11-15] MEDS: PIPERACILLIN/TAZOBACTAM 3.375 GM in SODIUM CHLORIDE 0.9% MINIBAG 100 ML IV SCH ×3 (02:31→18:16)
[2020-11-15] MEDS: ACETAMINOPHEN 1,000 MG/100 ML 100 ML IV SCH ×3 (03:40→14:15)
[2020-11-15 05:02] LABS: BASOPHILS % (AUTO) 0.1 %; HCT - HEMATOCRIT 24.6 % (42.0-52.0); HGB - HEMOGLOBIN 8.3 g/dL (14.0-18.0); LYMPHOCYTES # (AUTO) 1.4 10^3/uL (1.5-3.5); LYMPHOCYTES % (AUTO) 8.4 %; MEAN CORPUSCULAR HEMOGLOBIN 29.9 pg (27.0-31.0); MEAN CORPUSCULAR HGB CONC 33.7 g/dL (32.0-36.0); MEAN CORPUSCULAR VOLUME 88.5 fL (80.0-94.0); MEAN PLATELET VOLUME 10.1 fL (7.4-11.4); MONOCYTES % (AUTO) 5.6 %; NEUTROPHILS # (AUTO) 14.5 10^3/uL (1.5-6.6); PLT - PLATELET COUNT 158 10^3/uL (130-450); RED BLOOD COUNT 2.78 10^6/uL (4.70-6.10)
[2020-11-15 05:16] LABS: CALCIUM 8.5 mg/dL (8.5-10.3); CREATININE 0.8 mg/dL (0.6-1.2); PHOSPHORUS 2.4 mg/dL (2.5-4.6); POTASSIUM 3.6 mmol/L (3.5-5.0)
[2020-11-15] MEDS ORDERED: POTASSIUM PHOSPHATE 15 MMOL in SODIUM CHLORIDE 0.9% 250 ML IV ONE (08:00)
--- NOTE | 2020-11-15 08:10 | PROVIDER PROGRESS NOTE ---
Progress Note November 15, 2020 8:05 AM Patient is remained stable overnight. There were no events reported by nursing. Temperature remains at 37.4. Blood pressure is climbing and his diastolic is 100 this morning. He tells me that his only pain is around the incision site. Much more controlled today than yesterday. Is not going to get up and walk around until Tripp is discontinued. Medications are Tylenol IV, albuterol, Colace, Apresoline as needed was ordered this morning, Dilaudid as needed, Atrovent as needed, iron dextran is 5 doses, lactated Ringer's, Robaxin, Zofran, potassium phosphate, Lyrica Temperature 37.4. Pulse 80. Blood pressure 165/100. Respiration 16 and is 96% on room air. Intake and output was +4357 on November 13. +503 cc on November 14. This morning he is -651. Alert oriented middle-aged white male who looks stated age. Alert, oriented. Neck is supple. No JVD. Lungs are clear to auscultate and percussion. Abdomen is slightly tender, no rebound or guarding. No bowel sounds is morning. Still no flatus. Extremities without edema. Assessment/plan: 1. Hypertension. Since admission he has been off his meds because of surgery, n.p.o. status, and hypotension. As he has improved, blood pressure is risen. Still n.p.o. Plan: Hydralazine for systolic greater than 180 or diastolic greater than 98. When he is able to take p.o., will resume his amlodipine 2. Elevated troponins have resolved. Pillow to be from demand ischemia 3. Status post reversal ileostomy. Postop day #3. Zosyn day #4. General surgery managing. 4. Acute blood loss anemia after surgery. Received 2 units overall. Hemoglobin on admission was 14.7. Bottomed out at 7. Has received 2 units and is 8.6.
[2020-11-15] MEDS: polyethylene glycoL 3350 17 GM PACKET PO SCH ×2 (08:33→21:37)
[2020-11-15] MEDS: DOCUSATE SODIUM 100 MG CAPSULE PO SCH ×2 (08:33→21:13)
[2020-11-15] MEDS: IRON DEXTRAN 200 MG in SODIUM CHLORIDE 0.9% 100ML 100 ML IV SCH (08:50)
[2020-11-15] MEDS: PREGABALIN 100 MG CAPSULE PO SCH ×2 (08:56→21:12)
[2020-11-15] MEDS: hydrALAZINE INJ 20 MG/ML VIAL IVP SCH ×2 (14:00→21:38)
--- NOTE | 2020-11-15 15:07 | PROVIDER PROGRESS NOTE ---
Progress Note Subjective Much improved. Questionable flatus overnight. Called patient's spouse with update. Denies chest pain/sob. Still voiding by lowery. Pre-Op Diagnosis: H/O LAR for complicated diverticulitis; distal ileal perf on enterosscopy Procedure Performed: 1. Mini laparotomy 2. Diagnostic laparoscopy 3. Ileostomy reversal and small bowel resection 4. Abdominal washout 5. Drain placement 6. Extensive adhesiolysis including right colonic mobilization Post Op Diagnosis: Same; terminal ileal stricturing; right pelvic side wall adhesions Objective Afebrile, hemodynamically acceptable General Appearance: positive: No acute distress Eyes Bilateral: positive: Normal inspection ENT: positive: ENT inspection nml Neck: positive: Nml inspection Respiratory: positive: Chest non-tender, No respiratory distress, Breath sounds nml. negative: Wheezes, Rales, Rhonchi Cardiovascular: positive: Regular rate & rhythm Extremities: positive: Non-tender, Full ROM, Nml appearance Neurologic/Psychiatric: positive: Oriented x3, CN's nml (2-12) Abdomen soft, appropriately tender, no rebound no guarding, nondistended. Drain removed as well as dressing. Lowery catheter removed. Impression/Plan Postoperative day #3 with elevated troponin, tachycardia, lactic acidosis, as well as syncopal episode. Patient had syncopal episode on postoperative day #0. EKG has been without any significant changes. He has had no chest pain and no dyspnea. His echocardiography was without any significant wall motion abnormality. Extensive work-up which revealed elevated troponins. He was started on a heparin drip including aspirin. Suspected demand ischemia, no EKG changes. This was explained to the patient and his . Anemia stable, however discontinued the Hep gtt. Plan transfusion. Plan going forward is as follows: (1) GI - IVF, bowel regimen, slowly advance diet. GI ppx. Opiate sparring analgesia. (2) SURGERY - discontinue drain. Change wound packing. (3) Renal/Lytes - continue IVF. Renal indices within normal limits. Discontinue lowery. (4) Respiratory - O2 as necessary. Continue IS. If remains Tachycardic will order a CTA to decide if there is any indication to rule out pulmonary embolism especially being necessity to stop the heparin gtt in the setting of acute blood loss anemia. (5) Heme - STOPPED heparin infusion without bolus over concern for acute blood loss anemia. Serial H&H's. Previously transfused 2unit pRBC. Transfuse venofer over 5 days as well. (6) Cardiovascular - HD acceptable. Continue telemetry. Continue serial troponins. Concern for non-STEMI. Echo with no wall motion abnormality. Transfuse as necessary. (7) Neuro - Opiate sparring analgesia. (8) Immune/Infectious Disease - Continue antibiotics (9) PT/OT
[2020-11-15] MEDS: amLODIPine 5 MG TABLET PO SCH (18:12)
[2020-11-15] MEDS: ONDANSETRON 4 MG/2 ML VIAL IVP PRN (20:12)
[2020-11-15] MEDS: MORPHINE 2 MG/ML CARPUJECT IVP PRN (22:47)
[2020-11-16] MEDS: MORPHINE 2 MG/ML CARPUJECT IVP PRN ×5 (00:57→09:49)
[2020-11-16] MEDS: PIPERACILLIN/TAZOBACTAM 3.375 GM in SODIUM CHLORIDE 0.9% MINIBAG 100 ML IV SCH ×3 (01:59→18:18)
[2020-11-16] MEDS: LACTATED RINGERS 1,000 ML IV SCH ×5 (02:00→22:09)
[2020-11-16] MEDS: hydrALAZINE INJ 20 MG/ML VIAL IVP SCH ×3 (05:25→22:14)
[2020-11-16] MEDS: methocarbamoL 500 MG TABLET PO SCH ×3 (05:55→18:19)
[2020-11-16 06:06] LABS: BASOPHILS % (AUTO) 0.2 %; EOSINOPHILS # (AUTO) 0.1 10^3/uL (0.0-0.7); EOSINOPHILS % (AUTO) 0.6 %; HCT - HEMATOCRIT 29.4 % (42.0-52.0); HGB - HEMOGLOBIN 10.2 g/dL (14.0-18.0); LYMPHOCYTES # (AUTO) 0.9 10^3/uL (1.5-3.5); LYMPHOCYTES % (AUTO) 4.4 %; MEAN CORPUSCULAR HEMOGLOBIN 30.4 pg (27.0-31.0); MEAN CORPUSCULAR HGB CONC 34.7 g/dL (32.0-36.0); MEAN CORPUSCULAR VOLUME 87.5 fL (80.0-94.0); MONOCYTES # (AUTO) 1.1 10^3/uL (0.0-1.0); MONOCYTES % (AUTO) 5.8 %; NEUTROPHILS # (AUTO) 17.2 10^3/uL (1.5-6.6); PLT - PLATELET COUNT 244 10^3/uL (130-450); RED BLOOD COUNT 3.36 10^6/uL (4.70-6.10); RED CELL DISTRIBUTION WIDTH 13.8 % (12.0-15.0); WHITE BLOOD COUNT 19.6 x10^3/uL (4.8-10.8)
[2020-11-16 06:18] LABS: CALCIUM 8.2 mg/dL (8.5-10.3); CREATININE 0.8 mg/dL (0.6-1.2); MAGNESIUM 1.9 mg/dL (1.7-2.8); PHOSPHORUS 3.5 mg/dL (2.5-4.6); POTASSIUM 3.4 mmol/L (3.5-5.0)
[2020-11-16] MEDS: ACETAMINOPHEN 500 MG TABLET PO PRN ×4 (07:37→21:22)
[2020-11-16] MEDS: amLODIPine 5 MG TABLET PO SCH (09:14)
[2020-11-16] MEDS: PREGABALIN 100 MG CAPSULE PO SCH ×2 (09:14→21:22)
[2020-11-16] MEDS: polyethylene glycoL 3350 17 GM PACKET PO SCH ×2 (09:15→20:30)
[2020-11-16] MEDS: DOCUSATE SODIUM 100 MG CAPSULE PO SCH ×2 (09:15→20:30)
[2020-11-16] MEDS: IRON DEXTRAN 200 MG in SODIUM CHLORIDE 0.9% 100ML 100 ML IV SCH (09:15)
[2020-11-16] MEDS: SODIUM CHLORIDE FLUSH 0.9% 10 ML SYRINGE IVP SCH ×2 (09:27→16:11)
[2020-11-16] MEDS: oxyCODONE 5 MG TABLET PO PRN ×3 (12:17→21:22)
--- NOTE | 2020-11-16 13:38 | PROVIDER PROGRESS NOTE ---
Subjective - General Admit Date: 11/12/20 Procedure Date: 11/12/20 Post Op Days: 4 Procedure Performed: Ostomy reversal/with postoperative NSTEMI - Review of Systems Wound/Incisions: positive: Healing well, No drainage General: positive: Other (Pain control is an issue) HEENT: positive: No symptoms. negative: Headaches Pulmonary: positive: No symptoms Cardiovascular: positive: No symptoms Gastrointestinal: positive: Abdominal pain, Other (Multiple bowel movements this morning. Primarily liquid. No nausea. Continues to be uncomfortable.) Genitourinary: positive: No symptoms Musculoskeletal: positive: No symptoms Skin: positive: No symptoms All Other Systems: positive: Other (Review of systems is limited due to the acuity of the patient.) - Other Other Information/Narrative: Denies any chest pain. Reports that generally he thinks he is doing well. Having more pain than he expected to have after ostomy reversal. He describes it as crampy pain.Transfused yesterday and hemoglobin is holding at 10.2 with no signs of further bleeding. Objective - Patient Data Reviewed Vital Signs: Yes Vital Signs: Vital Signs x48h Temp Pulse Resp BP Pulse Ox 11/16/20 11:41 37.0 C 107 H 18 119/69 91 L 11/16/20 09:00 36.7 C 102 H 16 132/83 H Weight: Weight 11/14/20 11/15/20 11/16/20 23:59 23:59 23:59 Weight (kg) 99 kg 97.8 kg 99 kg Intake & Output: Intake and Output Totals x24h 11/14/20 11/15/20 11/16/20 23:59 23:59 23:59 Intake Total 5498.0 4405.5 2324 Output Total 4995 5170 300 Balance 503.0 -764.5 2023 - Lab Results Lab Results: 11/16/20 05:50 11/16/20 05:50 Other Lab Results: Lab Results x24hrs 11/16/20 11/16/20 11/16/20 Range/Units 11:39 05:50 05:50 WBC 19.6 H (4.8-10.8) x10^3/uL RBC 3.36 L (4.70-6.10) 10^6/uL Hgb 10.2 L (14.0-18.0) g/dL Hct 29.4 L (42.0-52.0) % MCV 87.5 (80.0-94.0) fL MCH 30.4 (27.0-31.0) pg MCHC 34.7 (32.0-36.0) g/dL RDW 13.8 (12.0-15.0) % Plt Count 244 (130-450) 10^3/uL MPV 10.0 (7.4-11.4) fL Neut # (Auto) 17.2 H (1.5-6.6) 10^3/uL Lymph # (Auto) 0.9 L (1.5-3.5) 10^3/uL [place] # (Auto) 1.1 H (0.0-1.0) 10^3/uL Eos # (Auto) 0.1 (0.0-0.7) 10^3/uL Baso # (Auto) 0.0 (0.0-0.1) 10^3/uL Absolute Nucleated RBC 0.00 x10^3/uL Nucleated RBC % 0.0 /100WBC Sodium 138 (135-145) mmol/L Potassium 3.4 L (3.5-5.0) mmol/L Chloride 102 (101-111) mmol/L Carbon Dioxide 23 (21-32) mmol/L Anion Gap 13.0 (6-13) BUN 16 (6-20) mg/dL Creatinine 0.8 (0.6-1.2) mg/dL Estimated GFR (MDRD) 101 (>89) Glucose 140 H (70-100) mg/dL POC Whole Bld Glucose 172 H (70 - 100) mg/dL Calcium 8.2 L (8.5-10.3) mg/dL Phosphorus 3.5 (2.5-4.6) mg/dL Magnesium 1.9 (1.7-2.8) mg/dL 11/16/20 11/15/20 11/15/20 Range/Units 00:17 18:23 11:38 WBC (4.8-10.8) x10^3/uL RBC (4.70-6.10) 10^6/uL Hgb (14.0-18.0) g/dL Hct (42.0-52.0) % MCV (80.0-94.0) fL MCH (27.0-31.0) pg MCHC (32.0-36.0) g/dL RDW (12.0-15.0) % Plt Count (130-450) 10^3/uL MPV (7.4-11.4) fL Neut # (Auto) (1.5-6.6) 10^3/uL Lymph # (Auto) (1.5-3.5) 10^3/uL [place] # (Auto) (0.0-1.0) 10^3/uL Eos # (Auto) (0.0-0.7) 10^3/uL Baso # (Auto) (0.0-0.1) 10^3/uL Absolute Nucleated RBC x10^3/uL Nucleated RBC % /100WBC Sodium (135-145) mmol/L Potassium (3.5-5.0) mmol/L Chloride (101-111) mmol/L Carbon Dioxide (21-32) mmol/L Anion Gap (6-13) BUN (6-20) mg/dL Creatinine (0.6-1.2) mg/dL Estimated GFR (MDRD) (>89) Glucose (70-100) mg/dL POC Whole Bld Glucose 102 H 97 97 (70 - 100) mg/dL Calcium (8.5-10.3) mg/dL Phosphorus (2.5-4.6) mg/dL Magnesium (1.7-2.8) mg/dL 11/14/20 11/14/20 11/13/20 Range/Units 18:22 00:19 18:55 WBC (4.8-10.8) x10^3/uL RBC (4.70-6.10) 10^6/uL Hgb (14.0-18.0) g/dL Hct (42.0-52.0) % MCV (80.0-94.0) fL MCH (27.0-31.0) pg MCHC (32.0-36.0) g/dL RDW (12.0-15.0) % Plt Count (130-450) 10^3/uL MPV (7.4-11.4) fL Neut # (Auto) (1.5-6.6) 10^3/uL Lymph # (Auto) (1.5-3.5) 10^3/uL [place] # (Auto) (0.0-1.0) 10^3/uL Eos # (Auto) (0.0-0.7) 10^3/uL Baso # (Auto) (0.0-0.1) 10^3/uL Absolute Nucleated RBC x10^3/uL Nucleated RBC % /100WBC Sodium (135-145) mmol/L Potassium (3.5-5.0) mmol/L Chloride (101-111) mmol/L Carbon Dioxide (21-32) mmol/L Anion Gap (6-13) BUN (6-20) mg/dL Creatinine (0.6-1.2) mg/dL Estimated GFR (MDRD) (>89) Glucose (70-100) mg/dL POC Whole Bld Glucose 110 H 123 H 137 H (70 - 100) mg/dL Calcium (8.5-10.3) mg/dL Phosphorus (2.5-4.6) mg/dL Magnesium (1.7-2.8) mg/dL 11/13/20 Range/Units 11:30 WBC (4.8-10.8) x10^3/uL RBC (4.70-6.10) 10^6/uL Hgb (14.0-18.0) g/dL Hct (42.0-52.0) % MCV (80.0-94.0) fL MCH (27.0-31.0) pg MCHC (32.0-36.0) g/dL RDW (12.0-15.0) % Plt Count (130-450) 10^3/uL MPV (7.4-11.4) fL Neut # (Auto) (1.5-6.6) 10^3/uL Lymph # (Auto) (1.5-3.5) 10^3/uL [place] # (Auto) (0.0-1.0) 10^3/uL Eos # (Auto) (0.0-0.7) 10^3/uL Baso # (Auto) (0.0-0.1) 10^3/uL Absolute Nucleated RBC x10^3/uL Nucleated RBC % /100WBC Sodium (135-145) mmol/L Potassium (3.5-5.0) mmol/L Chloride (101-111) mmol/L Carbon Dioxide (21-32) mmol/L Anion Gap (6-13) BUN (6-20) mg/dL Creatinine (0.6-1.2) mg/dL Estimated GFR (MDRD) (>89) Glucose (70-100) mg/dL POC Whole Bld Glucose 138 H (70 - 100) mg/dL Calcium (8.5-10.3) mg/dL Phosphorus (2.5-4.6) mg/dL Magnesium (1.7-2.8) mg/dL - Current Medications Current Medications: Current Medications Generic Name Dose Route Start Last Admin Trade Name Freq PRN Reason Stop Dose Admin Acetaminophen 500 mg 11/15/20 17:20 11/16/20 12:16 Acetaminophen 500 Mg Tablet PO 500 mg Q4HR PRN Administration Pain or Fever > 38C (100.4F) Amlodipine Besylate 5 mg 11/15/20 16:16 11/16/20 09:14 Amlodipine 5 Mg Tablet PO 5 mg DAILY ASHWIN Administration Docusate Sodium 100 mg 11/12/20 21:00 11/16/20 09:15 Docusate Sodium 100 Mg Capsule PO 100 mg BID ASHWIN Administration Hydralazine HCl 10 mg 11/15/20 14:00 11/16/20 05:25 Hydralazine Inj 20 Mg/Ml Vial IVP Not Given TID ASHWIN Piperacillin Sod/Tazobactam 100 mls @ 25 mls/hr 11/12/20 18:00 11/16/20 10:18 Sod 3.375 gm/ Sodium Chloride IV 25 mls/hr Q8H ASHWIN Administration Lactated Ringer's 1,000 mls @ 150 mls/hr 11/13/20 06:56 11/16/20 09:12 Lr IV 150 mls/hr .Q6H40M ASHWIN Administration Iron Dextran 200 mg/ Sodium 104 mls @ 208 mls/hr 11/14/20 10:00 11/16/20 10:13 Chloride IV 11/18/20 09:29 Infused DAILY ASHWIN Infusion Methocarbamol 500 mg 11/12/20 18:00 11/16/20 12:16 Methocarbamol 500 Mg Tablet PO 500 mg Q6HR ASHWIN Administration Morphine Sulfate 2 mg 11/15/20 21:58 11/16/20 09:49 Morphine 2 Mg/Ml Carpuject IVP 2 mg Q2HR PRN Administration PAIN Ondansetron HCl 4 mg 11/12/20 17:01 11/15/20 20:12 Ondansetron 4 Mg/2 Ml Vial IVP 4 mg Q6HR PRN Administration Nausea / Vomiting Oxycodone HCl 5 mg 11/16/20 11:35 11/16/20 12:17 Oxycodone 5 Mg Tablet PO 5 mg Q4HR PRN Administration PAIN Polyethylene Glycol 17 gm 11/12/20 21:00 11/16/20 09:15 Polyethylene Glycol 3350 17 Gm Packet PO Not Given BID ASHWIN Pregabalin 100 mg 11/12/20 21:00 11/16/20 09:14 Pregabalin 100 Mg Capsule PO 100 mg BID ASHWIN Administration Sodium Chloride 10 ml 11/13/20 09:00 11/16/20 09:27 Sodium Chloride Flush 0.9% 10 Ml Syringe IVP 10 ml 0100,0900,1700 ASHWIN Administration Sodium Chloride 10 ml 11/13/20 01:35 11/14/20 16:35 Sodium Chloride Flush 0.9% 10 Ml Syringe IVP 10 ml PRN PRN Administration NEEDED PER PROVIDER ORDERS Sodium Chloride 20 ml 11/13/20 04:04 11/14/20 06:17 Sodium Chloride Flush 0.9% 10 Ml Syringe IVP 20 ml PRN PRN Administration After Blood Draw ABX Reporting Has patient been on IV antibiotics over the past 48 hours?: Yes Impression/Plan - Problem List Problem List: Stable and improving after ileostomy reversal complicated by NSTEMI and pos toperative hemorrhage.I think his white count is up secondary to transfusion yesterday. I will continue Zosyn for now until we start to see a trend in the other direction.Objectively, he is looking good. Bowel function is returning. I will add oxycodone for pain control.Continue Lyrica and methocarbamol as well as acetaminophen.Hold on Toradol in the setting of recent bleeding.
[2020-11-16] MEDS: ONDANSETRON 4 MG/2 ML VIAL IVP PRN ×2 (16:10→22:10)
[2020-11-16] MEDS ORDERED: MIN OIL/DIMETHICON/COCONUT OIL 92 GM TUBE TOP PRN (16:23)
[2020-11-16] MEDS ORDERED: DIPHENOX/ATROPINE 2.5/0.025 MG TABLET PO PRN (17:28)
[2020-11-16] MEDS: SODIUM CHLORIDE FLUSH 0.9% 10 ML SYRINGE IVP PRN (18:19)
[2020-11-17] MEDS: methocarbamoL 500 MG TABLET PO SCH ×4 (00:32→18:17)
[2020-11-17] MEDS: SODIUM CHLORIDE FLUSH 0.9% 10 ML SYRINGE IVP SCH ×3 (00:33→17:11)
[2020-11-17] MEDS: SODIUM CHLORIDE FLUSH 0.9% 10 ML SYRINGE IVP PRN ×2 (01:43→20:56)
[2020-11-17] MEDS: PIPERACILLIN/TAZOBACTAM 3.375 GM in SODIUM CHLORIDE 0.9% MINIBAG 100 ML IV SCH ×3 (01:43→18:32)
[2020-11-17] MEDS: oxyCODONE 5 MG TABLET PO PRN ×6 (01:43→22:41)
[2020-11-17] MEDS: ACETAMINOPHEN 500 MG TABLET PO PRN ×6 (01:43→22:41)
[2020-11-17] MEDS: LACTATED RINGERS 1,000 ML IV SCH ×3 (04:36→18:16)
[2020-11-17] MEDS: ONDANSETRON 4 MG/2 ML VIAL IVP PRN ×3 (04:44→17:11)
[2020-11-17] MEDS: hydrALAZINE INJ 20 MG/ML VIAL IVP SCH ×2 (04:45→14:12)
[2020-11-17 06:12] LABS: BASOPHILS # (AUTO) 0.1 10^3/uL (0.0-0.1); BASOPHILS % (AUTO) 0.3 %; EOSINOPHILS # (AUTO) 0.1 10^3/uL (0.0-0.7); EOSINOPHILS % (AUTO) 0.5 %; HCT - HEMATOCRIT 23.9 % (42.0-52.0); HGB - HEMOGLOBIN 7.9 g/dL (14.0-18.0); LYMPHOCYTES # (AUTO) 1.2 10^3/uL (1.5-3.5); MEAN CORPUSCULAR HEMOGLOBIN 29.7 pg (27.0-31.0); MEAN CORPUSCULAR HGB CONC 33.1 g/dL (32.0-36.0); MEAN CORPUSCULAR VOLUME 89.8 fL (80.0-94.0); MEAN PLATELET VOLUME 10.2 fL (7.4-11.4); MONOCYTES # (AUTO) 1.4 10^3/uL (0.0-1.0); MONOCYTES % (AUTO) 7.1 %; NEUTROPHILS % (AUTO) 85.1 %; PLT - PLATELET COUNT 218 10^3/uL (130-450); RED BLOOD COUNT 2.66 10^6/uL (4.70-6.10); RED CELL DISTRIBUTION WIDTH 14.2 % (12.0-15.0)
[2020-11-17 06:24] LABS: CALCIUM 7.9 mg/dL (8.5-10.3); CREATININE 0.8 mg/dL (0.6-1.2); MAGNESIUM 1.8 mg/dL (1.7-2.8); POTASSIUM 3.1 mmol/L (3.5-5.0)
[2020-11-17] MEDS ORDERED: POTASSIUM PHOSPHATE 21 MMOL in SODIUM CHLORIDE 0.9% 250 ML IV ONE (06:55)
[2020-11-17] MEDS: IRON DEXTRAN 200 MG in SODIUM CHLORIDE 0.9% 100ML 100 ML IV SCH (08:47)
[2020-11-17] MEDS: DOCUSATE SODIUM 100 MG CAPSULE PO SCH (08:48)
[2020-11-17] MEDS: polyethylene glycoL 3350 17 GM PACKET PO SCH ×2 (08:48→20:57)
[2020-11-17] MEDS: amLODIPine 5 MG TABLET PO SCH (08:52)
[2020-11-17] MEDS: PREGABALIN 100 MG CAPSULE PO SCH ×2 (08:52→20:54)
--- NOTE | 2020-11-17 11:07 | PROVIDER PROGRESS NOTE ---
Subjective - General Admit Date: 11/12/20 Procedure Date: 11/12/20 Post Op Days: 5 Procedure Performed: Ostomy reversal/with postoperative NSTEMI - Review of Systems Wound/Incisions: positive: Healing well, No drainage General: positive: Other (Pain control is an issue) HEENT: positive: No symptoms. negative: Headaches Pulmonary: positive: No symptoms Cardiovascular: positive: No symptoms Gastrointestinal: positive: Abdominal pain, Other (Multiple bowel movements this morning. Primarily liquid. No nausea. Continues to be uncomfortable.) Genitourinary: positive: No symptoms Musculoskeletal: positive: No symptoms Skin: positive: No symptoms All Other Systems: positive: Other (Review of systems is limited due to the acuity of the patient.) - Other Other Information/Narrative: Kash reports his pain is better controlled today. He says he had 7 or 8 large bowel movements last night with lots and lots of flatus. His abdomen feels much less distended today.He reports he is trying to get a little sleep but he keeps getting woken up by the phone by people wishing him happy Easter.He denies any nausea. He has not been tachycardic overnight. Vital signs are reassuring. Objective - Patient Data Vital Signs: Vital Signs x48h Temp Pulse Resp BP Pulse Ox 11/17/20 07:47 36.9 C 93 16 111/71 91 L 11/17/20 04:40 36.8 C 94 16 136/78 H 92 Weight: Weight 11/15/20 11/16/20 11/17/20 23:59 23:59 23:59 Weight (kg) 97.8 kg 99 kg 100 kg Intake & Output: Intake and Output Totals x24h 11/15/20 11/16/20 11/17/20 23:59 23:59 23:59 Intake Total 4405.5 4574 1531.5 Output Total 5170 300 300 Balance -764.5 4274 1231.5 - Lab Results Lab Results: 11/17/20 05:50 11/17/20 05:50 Other Lab Results: Lab Results x24hrs 11/17/20 11/17/20 11/17/20 Range/Units 05:50 05:50 00:32 WBC 20.0 H (4.8-10.8) x10^3/uL RBC 2.66 L (4.70-6.10) 10^6/uL Hgb 7.9 L (14.0-18.0) g/dL Hct 23.9 L (42.0-52.0) % MCV 89.8 (80.0-94.0) fL MCH 29.7 (27.0-31.0) pg MCHC 33.1 (32.0-36.0) g/dL RDW 14.2 (12.0-15.0) % Plt Count 218 (130-450) 10^3/uL MPV 10.2 (7.4-11.4) fL Neut # (Auto) 17.0 H (1.5-6.6) 10^3/uL Lymph # (Auto) 1.2 L (1.5-3.5) 10^3/uL Coffee # (Auto) 1.4 H (0.0-1.0) 10^3/uL Eos # (Auto) 0.1 (0.0-0.7) 10^3/uL Baso # (Auto) 0.1 (0.0-0.1) 10^3/uL Absolute Nucleated RBC 0.00 x10^3/uL Nucleated RBC % 0.0 /100WBC Sodium 134 L (135-145) mmol/L Potassium 3.1 L (3.5-5.0) mmol/L Chloride 99 L (101-111) mmol/L Carbon Dioxide 24 (21-32) mmol/L Anion Gap 11.0 (6-13) BUN 15 (6-20) mg/dL Creatinine 0.8 (0.6-1.2) mg/dL Estimated GFR (MDRD) 101 (>89) Glucose 138 H (70-100) mg/dL POC Whole Bld Glucose 129 H (70 - 100) mg/dL Calcium 7.9 L (8.5-10.3) mg/dL Phosphorus 2.0 L (2.5-4.6) mg/dL Magnesium 1.8 (1.7-2.8) mg/dL 11/16/20 11/16/20 Range/Units 18:05 11:39 WBC (4.8-10.8) x10^3/uL RBC (4.70-6.10) 10^6/uL Hgb (14.0-18.0) g/dL Hct (42.0-52.0) % MCV (80.0-94.0) fL MCH (27.0-31.0) pg MCHC (32.0-36.0) g/dL RDW (12.0-15.0) % Plt Count (130-450) 10^3/uL MPV (7.4-11.4) fL Neut # (Auto) (1.5-6.6) 10^3/uL Lymph # (Auto) (1.5-3.5) 10^3/uL Coffee # (Auto) (0.0-1.0) 10^3/uL Eos # (Auto) (0.0-0.7) 10^3/uL Baso # (Auto) (0.0-0.1) 10^3/uL Absolute Nucleated RBC x10^3/uL Nucleated RBC % /100WBC Sodium (135-145) mmol/L Potassium (3.5-5.0) mmol/L Chloride (101-111) mmol/L Carbon Dioxide (21-32) mmol/L Anion Gap (6-13) BUN (6-20) mg/dL Creatinine (0.6-1.2) mg/dL Estimated GFR (MDRD) (>89) Glucose (70-100) mg/dL POC Whole Bld Glucose 143 H 172 H (70 - 100) mg/dL Calcium (8.5-10.3) mg/dL Phosphorus (2.5-4.6) mg/dL Magnesium (1.7-2.8) mg/dL - Current Medications Current Medications: Current Medications Generic Name Dose Route Start Last Admin Trade Name Freq PRN Reason Stop Dose Admin Acetaminophen 500 mg 11/15/20 17:20 11/17/20 09:26 Acetaminophen 500 Mg Tablet PO 500 mg Q4HR PRN Administration Pain or Fever > 38C (100.4F) Amlodipine Besylate 5 mg 11/15/20 16:16 11/17/20 08:52 Amlodipine 5 Mg Tablet PO 5 mg DAILY [facility] Administration Hydralazine HCl 10 mg 11/15/20 14:00 11/17/20 04:45 Hydralazine Inj 20 Mg/Ml Vial IVP Not Given TID [facility] Piperacillin Sod/Tazobactam 100 mls @ 25 mls/hr 11/12/20 18:00 11/17/20 09:18 Sod 3.375 gm/ Sodium Chloride IV 25 mls/hr Q8H [facility] Administration Lactated Ringer's 1,000 mls @ 150 mls/hr 11/13/20 06:56 11/17/20 04:36 Lr IV 150 mls/hr .Q6H40M [facility]WIN Administration Iron Dextran 200 mg/ Sodium 104 mls @ 208 mls/hr 11/14/20 10:00 11/17/20 09:58 Chloride IV 11/18/20 09:29 Infused DAILY [facility] Infusion Potassium Phosphate 21 mmol/ 257 mls @ 42.833 mls/hr 11/17/20 06:55 11/17/20 09:18 Sodium Chloride IV 11/17/20 12:54 42.833 mls/hr ONCE ONE Administration Methocarbamol 500 mg 11/12/20 18:00 11/17/20 05:34 Methocarbamol 500 Mg Tablet PO 500 mg Q6HR [facility] Administration Mineral Oil 1 applic 11/16/20 16:23 11/16/20 20:52 Min Oil/Dimethicon/Coconut Oil 92 Gm Tube TOP 1 applic PRN PRN Administration Skin Care Morphine Sulfate 2 mg 11/15/20 21:58 11/16/20 09:49 Morphine 2 Mg/Ml Carpuject IVP 2 mg Q2HR PRN Administration PAIN Ondansetron HCl 4 mg 11/12/20 17:01 11/17/20 04:44 Ondansetron 4 Mg/2 Ml Vial IVP 4 mg Q6HR PRN Administration Nausea / Vomiting Oxycodone HCl 5 mg 11/16/20 11:35 11/17/20 09:26 Oxycodone 5 Mg Tablet PO 5 mg Q4HR PRN Administration PAIN Polyethylene Glycol 17 gm 11/12/20 21:00 11/17/20 08:48 Polyethylene Glycol 3350 17 Gm Packet PO Not Given BID [facility]WIN Pregabalin 100 mg 11/12/20 21:00 11/17/20 08:52 Pregabalin 100 Mg Capsule PO 100 mg BID [facility] Administration Sodium Chloride 10 ml 11/13/20 09:00 11/17/20 08:52 Sodium Chloride Flush 0.9% 10 Ml Syringe IVP 10 ml 0100,0900,1700 [facility] Administration Sodium Chloride 10 ml 11/13/20 01:35 11/17/20 01:43 Sodium Chloride Flush 0.9% 10 Ml Syringe IVP 10 ml PRN PRN Administration NEEDED PER PROVIDER ORDERS Sodium Chloride 20 ml 11/13/20 04:04 11/14/20 06:17 Sodium Chloride Flush 0.9% 10 Ml Syringe IVP 20 ml PRN PRN Administration After Blood Draw - Physical Exam Wound/Incisions: positive: Healing well General Appearance: positive: No acute distress Eyes Bilateral: positive: PERRL, EOMI Respiratory: positive: Chest non-tender, Breath sounds nml Cardiovascular: positive: Regular rate & rhythm Abdomen: positive: Nml bowel sounds, Other (Distended with active bowel sounds. Less tender than yesterday.Wounds are all well approximated.) Neurologic/Psychiatric: positive: Oriented x3 ABX Reporting Has patient been on IV antibiotics over the past 48 hours?: Yes Impression/Plan - Problem List Problem List: Postop day 5 after ostomy reversal complicated by NSTEMI. His continued/repeated anemia is concerning and confounding. His white count continues to enter its way up though clinically he does not appear toxic. I will start by checking a C. difficile today.We will need to recheck his hemoglobin at noon. If he continues to drop we will need to reconsider CT scan versus return to the operating room.
[2020-11-17] MEDS ORDERED: POTASSIUM CHLOR 10 MEQ/100 ML 10 MEQ/100 ML BAG IV SCH (13:00)
[2020-11-17 13:40] LABS: HCT - HEMATOCRIT 26.1 % (42.0-52.0); HGB - HEMOGLOBIN 8.5 g/dL (14.0-18.0)
[2020-11-17] MEDS: POTASSIUM CHLOR 10 MEQ/100 ML 10 MEQ/100 ML BAG IV SCH ×4 (16:07→19:48)
--- NOTE | 2020-11-17 20:19 | XRAY Report ---
PROCEDURE: Chest 1 View X-Ray INDICATIONS: Hypoxia. TECHNIQUE: One view of the chest was acquired. COMPARISON: 11/12/2020. FINDINGS: Surgical changes and devices: None. Lungs and pleura: There are low lung volumes with prominent vascular prominence consistent with vasc ular crowding or pulmonary edema. Linear bibasilar opacities are also demonstrated consistent with at electasis. No pleural effusions or pneumothorax. Mediastinum: Mediastinal contours appear unchanged. Heart size is normal. Bones and chest wall: No suspicious bony lesions. Overlying soft tissues appear unremarkable. IMPRESSION: 1. Low lung volumes with pulmonary vascular prominence consistent with pulmonary edema or vascular cr owding. 2. Minimal basilar opacities consistent with atelectasis or developing consolidation. Reviewed by: Jeffry Rubio MD on 11/17/2020 8:18 PM PDT Approved by: Jeffry Rubio MD on 11/17/2020 8:18 PM PDT Station ID: [id number]
[2020-11-17] MEDS: VANCOMYCIN 125 MG CAPSULE PO SCH (20:55)
[2020-11-17] MEDS ORDERED: VANCOMYCIN 125 MG CAPSULE PO SCH (21:00)
--- NOTE | 2020-11-17 22:10 | PROVIDER PROGRESS NOTE ---
Subjective - Prog Note Date Prog Note Date: 11/17/20 - Subjective Subjective: Reports feeling okay overall. Denies any shortness of breath or chest pain. Reports some mild cough. Reports no abdominal pain at rest but he does have some discomfort with movement predominately the right lower quadrant. Still has diarrhea but only about 3-4 bowel movements today. Current Medications - Current Medications Current Medications: Active Medications Acetaminophen (Acetaminophen 500 Mg Tablet) 500 mg PO Q4HR PRN PRN Reason: Pain or Fever > 38C (100.4F) Last Admin: 11/17/20 18:36 Dose: 500 mg Documented by: Albuterol (Albuterol Neb 2.5 Mg/3 Ml) 2.5 mg INH Q4HR PRN PRN Reason: Wheezing Amlodipine Besylate (Amlodipine 5 Mg Tablet) 5 mg PO DAILY [facility] Last Admin: 11/17/20 08:52 Dose: 5 mg Documented by: Hydralazine HCl (Hydralazine Inj 20 Mg/Ml Vial) 10 mg IVP TID [facility] Last Admin: 11/17/20 14:12 Dose: Not Given Documented by: Sodium Chloride (Normal Saline 0.9%) 500 mls @ 20 mls/hr IV Q24H PRN PRN Reason: TKO RATE Iron Dextran 200 mg/ Sodium (Chloride) 104 mls @ 208 mls/hr IV DAILY [facility] Stop: 11/18/20 09:29 Last Infusion: 11/17/20 09:58 Dose: Infused Documented by: Ipratropium [place] (Ipratropium 0.2 Mg/Ml Neb) 0.5 mg INH Q6HR PRN PRN Reason: Wheezing Methocarbamol (Methocarbamol 500 Mg Tablet) 500 mg PO Q6HR [facility] Last Admin: 11/17/20 18:17 Dose: 500 mg Documented by: Mineral Oil (Min Oil/Dimethicon/Coconut Oil 92 Gm Tube) 1 applic TOP PRN PRN PRN Reason: Skin Care Last Admin: 11/16/20 20:52 Dose: 1 applic Documented by: Morphine Sulfate (Morphine 2 Mg/Ml Carpuject) 2 mg IVP Q2HR PRN PRN Reason: PAIN Last Admin: 11/16/20 09:49 Dose: 2 mg Documented by: Ondansetron HCl (Ondansetron 4 Mg/2 Ml Vial) 4 mg IVP Q6HR PRN PRN Reason: Nausea / Vomiting Last Admin: 11/17/20 17:11 Dose: 4 mg Documented by: Oxycodone HCl (Oxycodone 5 Mg Tablet) 5 mg PO Q4HR PRN PRN Reason: PAIN Last Admin: 11/17/20 18:36 Dose: 5 mg Documented by: Polyethylene Glycol (Polyethylene Glycol 3350 17 Gm Packet) 17 gm PO BID [facility] Last Admin: 11/17/20 20:57 Dose: Not Given Documented by: Pregabalin (Pregabalin 100 Mg Capsule) 100 mg PO BID [facility] Last Admin: 11/17/20 20:54 Dose: 100 mg Documented by: Sodium Chloride (Sodium Chloride Flush 0.9% 10 Ml Syringe) 10 ml IVP 0100,0900,1700 [facility] Last Admin: 11/17/20 17:11 Dose: 10 ml Documented by: Sodium Chloride (Sodium Chloride Flush 0.9% 10 Ml Syringe) 10 ml IVP PRN PRN PRN Reason: NEEDED PER PROVIDER ORDERS Last Admin: 11/17/20 20:56 Dose: 10 ml Documented by: Sodium Chloride (Sodium Chloride Flush 0.9% 10 Ml Syringe) 20 ml IVP PRN PRN PRN Reason: After Blood Draw Last Admin: 11/14/20 06:17 Dose: 20 ml Documented by: Vancomycin HCl (Vancomycin 125 Mg Capsule) 500 mg PO QID [facility] Stop: 11/28/20 23:59 Last Admin: 11/17/20 20:55 Dose: 500 mg Documented by: Acetaminophen [Tylenol] 500 mg PO DAILY 11/12/20 Objective - Vital Signs/Intake & Output Reviewed Vital Signs: Yes Vital Signs: Vital Signs x48h Temp Pulse Resp BP BP Pulse Ox 11/17/20 19:38 37.4 C 92 20 120/69 90 L 11/17/20 15:41 37.3 C 96 22 132/74 H 93 11/17/20 14:12 138/76 H Intake & Output: Intake & Output 11/14/20 11/15/20 11/16/20 11/17/20 23:59 23:59 23:59 23:59 Intake Total 5498.0 4405.5 4574 4888.5 Output Total 4995 5170 300 875 Balance 503.0 -764.5 4274 4013.5 - Objective General Appearance: positive: No acute distress, Alert Eyes Bilateral: positive: Normal inspection, Conjunctivae nml ENT: positive: ENT inspection nml Neck: positive: Nml inspection Respiratory: positive: No respiratory distress. negative: Wheezes, Rales Cardiovascular: positive: Regular rate & rhythm, No murmur. negative: Tachycardia, Systolic murmur Abdomen: positive: Tenderness (Right lower quadrant), Abnml bowel sounds (Hyperactive.), Other (Dressing and ok in place without surrounding erythema.). negative: No distention, Guarding, Rebound Skin: positive: Warm, Dry Extremities: positive: Full ROM, No pedal edema Neurologic/Psychiatric: positive: Oriented x3, Motor nml. negative: Disoriented to person, Disoriented to place, Disoriented to time - Lab Results Fish Bones: 11/17/20 13:30 11/17/20 05:50 Other Labs: Lab Results x24hrs 11/17/20 11/17/20 11/17/20 Range/Units 17:54 15:30 13:30 WBC (4.8-10.8) x10^3/uL RBC (4.70-6.10) 10^6/uL Hgb 8.5 L (14.0-18.0) g/dL Hct 26.1 L (42.0-52.0) % MCV (80.0-94.0) fL MCH (27.0-31.0) pg MCHC (32.0-36.0) g/dL RDW (12.0-15.0) % Plt Count (130-450) 10^3/uL MPV (7.4-11.4) fL Neut # (Auto) (1.5-6.6) 10^3/uL Lymph # (Auto) (1.5-3.5) 10^3/uL Tucker # (Auto) (0.0-1.0) 10^3/uL Eos # (Auto) (0.0-0.7) 10^3/uL Baso # (Auto) (0.0-0.1) 10^3/uL Absolute Nucleated RBC x10^3/uL Nucleated RBC % /100WBC Sodium (135-145) mmol/L Potassium (3.5-5.0) mmol/L Chloride (101-111) mmol/L Carbon Dioxide (21-32) mmol/L Anion Gap (6-13) BUN (6-20) mg/dL Creatinine (0.6-1.2) mg/dL Estimated GFR (MDRD) (>89) Glucose (70-100) mg/dL POC Whole Bld Glucose 146 H (70 - 100) mg/dL Calcium (8.5-10.3) mg/dL Phosphorus (2.5-4.6) mg/dL Magnesium (1.7-2.8) mg/dL Stl C. diff Tox B Gene POSITIVE A* (NEGATIVE) 11/17/20 11/17/20 11/17/20 Range/Units 13:12 05:50 05:50 WBC 20.0 H (4.8-10.8) x10^3/uL RBC 2.66 L (4.70-6.10) 10^6/uL Hgb 7.9 L (14.0-18.0) g/dL Hct 23.9 L (42.0-52.0) % MCV 89.8 (80.0-94.0) fL MCH 29.7 (27.0-31.0) pg MCHC 33.1 (32.0-36.0) g/dL RDW 14.2 (12.0-15.0) % Plt Count 218 (130-450) 10^3/uL MPV 10.2 (7.4-11.4) fL Neut # (Auto) 17.0 H (1.5-6.6) 10^3/uL Lymph # (Auto) 1.2 L (1.5-3.5) 10^3/uL Tucker # (Auto) 1.4 H (0.0-1.0) 10^3/uL Eos # (Auto) 0.1 (0.0-0.7) 10^3/uL Baso # (Auto) 0.1 (0.0-0.1) 10^3/uL Absolute Nucleated RBC 0.00 x10^3/uL Nucleated RBC % 0.0 /100WBC Sodium 134 L (135-145) mmol/L Potassium 3.1 L (3.5-5.0) mmol/L Chloride 99 L (101-111) mmol/L Carbon Dioxide 24 (21-32) mmol/L Anion Gap 11.0 (6-13) BUN 15 (6-20) mg/dL Creatinine 0.8 (0.6-1.2) mg/dL Estimated GFR (MDRD) 101 (>89) Glucose 138 H (70-100) mg/dL POC Whole Bld Glucose 115 H (70 - 100) mg/dL Calcium 7.9 L (8.5-10.3) mg/dL Phosphorus 2.0 L (2.5-4.6) mg/dL Magnesium 1.8 (1.7-2.8) mg/dL Stl C. diff Tox B Gene (NEGATIVE) 11/17/20 Range/Units 00:32 WBC (4.8-10.8) x10^3/uL RBC (4.70-6.10) 10^6/uL Hgb (14.0-18.0) g/dL Hct (42.0-52.0) % MCV (80.0-94.0) fL MCH (27.0-31.0) pg MCHC (32.0-36.0) g/dL RDW (12.0-15.0) % Plt Count (130-450) 10^3/uL MPV (7.4-11.4) fL Neut # (Auto) (1.5-6.6) 10^3/uL Lymph # (Auto) (1.5-3.5) 10^3/uL Tucker # (Auto) (0.0-1.0) 10^3/uL Eos # (Auto) (0.0-0.7) 10^3/uL Baso # (Auto) (0.0-0.1) 10^3/uL Absolute Nucleated RBC x10^3/uL Nucleated RBC % /100WBC Sodium (135-145) mmol/L Potassium (3.5-5.0) mmol/L Chloride (101-111) mmol/L Carbon Dioxide (21-32) mmol/L Anion Gap (6-13) BUN (6-20) mg/dL Creatinine (0.6-1.2) mg/dL Estimated GFR (MDRD) (>89) Glucose (70-100) mg/dL POC Whole Bld Glucose 129 H (70 - 100) mg/dL Calcium (8.5-10.3) mg/dL Phosphorus (2.5-4.6) mg/dL Magnesium (1.7-2.8) mg/dL Stl C. diff Tox B Gene (NEGATIVE) ABX Reporting Has patient been on IV antibiotics over the past 48 hours?: Yes Assessment/Plan - Problem List (1) Hypoxia Impression: He was hypoxic this evening saturating 90% on room air. I suspect this is likely due to pulmonary vascular congestion as he is net positive over 10 L since admission or atelectasis. He was initially quite hypovolemic and was resuscitated with IV fluids but even over the past 48 hours, he is net +8 L. We will order a chest x-ray for further evaluation given elevated white count but low suspicion for pneumonia. We will discontinue his IV fluids. We will hold off on diuresis at this time given he is having diarrhea and was initially quite hypovolemic and we do not want him to become dehydrated there is ongoing diarrhea. Continue submental oxygen as needed for goal saturation greater than 92%. Incentive spirometry. (2) C. difficile diarrhea Impression: His C. difficile was positive this evening. He has been started on oral vancomycin by general surgery. We will discontinue his IV fluids given the likely pulmonary vascular congestion but will hold off on diuresis given his ongoing diarrhea. Hold bowel regimen. (3) Postoperative anemia Impression: He required 2 units of packed red blood cells postoperatively. Hemoglobin has appeared to stabilize at around 8. I suspect the value of 10.2 on the third was not accurate. At this time, the has been no evidence of bleeding but we will continue to monitor. Would need to consider reimaging if his hemoglobin continues to decrease. (4) Demand ischemia Impression: This is now resolved. Initial troponin was elevated in the 400s and concern was for NSTEMI. This is not felt to be more likely demand ischemia. His EKG did not suggest ischemia and his echocardiogram revealed a preserved ejection fraction without any wall motion abnormalities. (5) Hypertension Impression: Well-controlled on amlodipine which we will continue. (6) Status post reversal of ileostomy Impression: He is now postop day 5. He has been tolerating a soft diet. Remains on Zosyn IV per general surgery. Management as per general surgey.
[2020-11-18] MEDS: SODIUM CHLORIDE FLUSH 0.9% 10 ML SYRINGE IVP SCH ×3 (01:15→16:16)
[2020-11-18] MEDS: methocarbamoL 500 MG TABLET PO SCH ×4 (01:22→17:10)
[2020-11-18] MEDS: ACETAMINOPHEN 500 MG TABLET PO PRN ×3 (03:09→17:10)
[2020-11-18] MEDS: oxyCODONE 5 MG TABLET PO PRN ×3 (03:09→18:09)
[2020-11-18 06:55] LABS: CALCIUM 8.3 mg/dL (8.5-10.3); CREATININE 0.8 mg/dL (0.6-1.2); MAGNESIUM 2.1 mg/dL (1.7-2.8); PHOSPHORUS 2.5 mg/dL (2.5-4.6); POTASSIUM 3.3 mmol/L (3.5-5.0)
[2020-11-18 07:09] LABS: BASOPHILS % (AUTO) 0.3 %; EOSINOPHILS % (AUTO) 0.3 %; HCT - HEMATOCRIT 25.9 % (42.0-52.0); HGB - HEMOGLOBIN 8.3 g/dL (14.0-18.0); LYMPHOCYTES % (AUTO) 7.5 %; MEAN CORPUSCULAR VOLUME 90.6 fL (80.0-94.0); MEAN PLATELET VOLUME 10.1 fL (7.4-11.4); MONOCYTES % (AUTO) 8.4 %; NEUTROPHILS % (AUTO) 80.1 %; PLT - PLATELET COUNT 282 10^3/uL (130-450); RED BLOOD COUNT 2.86 10^6/uL (4.70-6.10); RED CELL DISTRIBUTION WIDTH 14.1 % (12.0-15.0); WHITE BLOOD COUNT 21.1 x10^3/uL (4.8-10.8)
[2020-11-18] MEDS ORDERED: POTASSIUM CHLORIDE 20 MEQ TABLET PO ONE (07:11)
[2020-11-18 07:12] LABS: ABNORMAL LYMPHS % (MANUAL) 0 %
[2020-11-18 07:35] LABS: BAND NEUTROPHILS % (MANUAL) 6 %; LYMPHOCYTES # (MANUAL) 1.7 10^3/uL (1.5-3.5); LYMPHOCYTES % (MANUAL) 8 %; MONOCYTES # (MANUAL) 1.1 10^3/uL (0.0-1.0); NEUTROPHILS # (MANUAL) 18.4 10^3/uL (1.5-6.6)
[2020-11-18 07:36] LABS: DIFFERENTIAL COMMENT MANUAL DIFFERENTIAL; PLATELET ESTIMATE, MANUAL NORMAL (130-450,000) (NORMAL); PLATELET MORPHOLOGY NORMAL APPEARANCE (NORMAL); RBC MORPHOLOGY (MULTIPLE) NORMAL APPEARANCE (NORMAL); WBC MORPHOLOGY (MULTIPLE) 1+ VACUOLATION (NORMAL)
[2020-11-18] MEDS: amLODIPine 5 MG TABLET PO SCH (09:01)
[2020-11-18] MEDS: PREGABALIN 100 MG CAPSULE PO SCH ×2 (09:02→20:38)
[2020-11-18] MEDS: IRON DEXTRAN 200 MG in SODIUM CHLORIDE 0.9% 100ML 100 ML IV SCH (09:02)
[2020-11-18] MEDS: polyethylene glycoL 3350 17 GM PACKET PO SCH ×2 (09:02→20:27)
[2020-11-18] MEDS: VANCOMYCIN 125 MG CAPSULE PO SCH ×4 (09:02→20:38)
[2020-11-18] MEDS: SACCHAROMYCES BOULARDII 250 MG CAPSULE PO SCH ×2 (11:35→16:16)
[2020-11-18] MEDS ORDERED: SACCHAROMYCES BOULARDII 250 MG CAPSULE PO SCH (17:00)
--- NOTE | 2020-11-18 17:46 | PROVIDER PROGRESS NOTE ---
Subjective - Prog Note Date Prog Note Date: 11/18/20 Prog Note Time: 17:44 - Subjective Subjective: Still mildly hypoxic. He can be 94-95 on room air. Last needed oxygen at 5 this morning. He is ambulating in the room. Unfortunately temperature is 38.9. Heart rate 104. Case discussed with general surgery. Dr. Pal was making rounds. Current Medications - Current Medications Current Medications: Active Medications Acetaminophen (Acetaminophen 500 Mg Tablet) 500 mg PO Q4HR PRN PRN Reason: Pain or Fever > 38C (100.4F) Last Admin: 11/18/20 17:10 Dose: 500 mg Documented by: Albuterol (Albuterol Neb 2.5 Mg/3 Ml) 2.5 mg INH Q4HR PRN PRN Reason: Wheezing Amlodipine Besylate (Amlodipine 5 Mg Tablet) 5 mg PO DAILY [facility] Last Admin: 11/18/20 09:01 Dose: 5 mg Documented by: Sodium Chloride (Normal Saline 0.9%) 500 mls @ 20 mls/hr IV Q24H PRN PRN Reason: TKO RATE Ipratropium [place] (Ipratropium 0.2 Mg/Ml Neb) 0.5 mg INH Q6HR PRN PRN Reason: Wheezing Methocarbamol (Methocarbamol 500 Mg Tablet) 500 mg PO Q6HR [facility] [place] Last Admin: 11/18/20 17:10 Dose: 500 mg Documented by: Mineral Oil (Min Oil/Dimethicon/Coconut Oil 92 Gm Tube) 1 applic TOP PRN PRN PRN Reason: Skin Care Last Admin: 11/16/20 20:52 Dose: 1 applic Documented by: Morphine Sulfate (Morphine 2 Mg/Ml Carpuject) 2 mg IVP Q2HR PRN PRN Reason: PAIN Last Admin: 11/16/20 09:49 Dose: 2 mg Documented by: Ondansetron HCl (Ondansetron 4 Mg/2 Ml Vial) 4 mg IVP Q6HR PRN PRN Reason: Nausea / Vomiting Last Admin: 11/17/20 17:11 Dose: 4 mg Documented by: Oxycodone HCl (Oxycodone 5 Mg Tablet) 5 mg PO Q4HR PRN PRN Reason: PAIN Last Admin: 11/18/20 09:00 Dose: 5 mg Documented by: Polyethylene Glycol (Polyethylene Glycol 3350 17 Gm Packet) 17 gm PO BID [facility] [place] Last Admin: 11/18/20 09:02 Dose: Not Given Documented by: Pregabalin (Pregabalin 100 Mg Capsule) 100 mg PO BID [facility] [place] Last Admin: 11/18/20 09:02 Dose: 100 mg Documented by: Saccharomyces Boulardii (Saccharomyces Boulardii 250 Mg Capsule) 250 mg PO BIDWM [facility] [place] Last Admin: 11/18/20 16:16 Dose: 250 mg Documented by: Sodium Chloride (Sodium Chloride Flush 0.9% 10 Ml Syringe) 10 ml IVP 0100 ,0900,1700 [facility] [place] Last Admin: 11/18/20 16:16 Dose: 10 ml Documented by: Sodium Chloride (Sodium Chloride Flush 0.9% 10 Ml Syringe) 10 ml IVP PRN PRN PRN Reason: NEEDED PER PROVIDER ORDERS Last Admin: 11/17/20 20:56 Dose: 10 ml Documented by: Sodium Chloride (Sodium Chloride Flush 0.9% 10 Ml Syringe) 20 ml IVP PRN PRN PRN Reason: After Blood Draw Last Admin: 11/14/20 06:17 Dose: 20 ml Documented by: Vancomycin HCl (Vancomycin 125 Mg Capsule) 500 mg PO QID [facility] [place] Stop: 11/28/20 23:59 Last Admin: 11/18/20 16:16 Dose: 500 mg Documented by: Acetaminophen [Tylenol] 500 mg PO DAILY 11/12/20 Objective - Vital Signs/Intake & Output Vital Signs: Vital Signs x48h Temp Pulse Pulse Resp BP Pulse Ox 11/18/20 15:33 38.9 C H 104 H 24 131/77 H 93 11/18/20 14:00 36.5 C 85 16 125/69 95 11/18/20 13:00 36.8 C 90 16 130/67 95 Intake & Output: Intake & Output 11/15/20 11/16/20 11/17/20 11/18/20 23:59 23:59 23:59 23:59 Intake Total 4405.5 4574 6136.0 1124 Output Total 5170 300 875 650 Balance -764.5 4274 5261.0 474 - Lab Results Fish Bones: 11/18/20 06:39 11/18/20 06:39 Other Labs: Lab Results x24hrs 04/05/21 04/05/21 04/04/21 Range/Units 06:39 06:39 23:45 WBC 21.1 H (4.8-10.8) x10^3/uL RBC 2.86 L (4.70-6.10) 10^6/uL Hgb 8.3 L (14.0-18.0) g/dL Hct 25.9 L (42.0-52.0) % MCV 90.6 (80.0-94.0) fL MCH 29.0 (27.0-31.0) pg MCHC 32.0 (32.0-36.0) g/dL RDW 14.1 (12.0-15.0) % Plt Count 282 (130-450) 10^3/uL MPV 10.1 (7.4-11.4) fL Neut # (Auto) Not Reportable Lymph # (Auto) Not Reportable Allen # (Auto) Not Reportable Eos # (Auto) Not Reportable Baso # (Auto) Not Reportable Absolute Nucleated RBC Not Reportable Total Counted 100 Band Neuts % (Manual) 6 (0 - 10) % Abnorm Lymph % (Manual) 0 % Nucleated RBC % Not Reportable Neutrophils # (Manual) 18.4 H (1.5-6.6) 10^3/uL Lymphocytes # (Manual) 1.7 (1.5-3.5) 10^3/uL Monocytes # (Manual) 1.1 H (0.0-1.0) 10^3/uL Eosinophils # (Manual) 0.0 (0-0.7) 10^3/uL Basophils # (Manual) 0.0 (0-0.1) 10^3/uL Differential Comment MANUAL DIFFERENTIAL WBC Morphology 1+ VACUOLATION (NORMAL) Platelet Estimate NORMAL (130-450,000) (NORMAL) Platelet Morphology NORMAL APPEARANCE (NORMAL) RBC Morph Micro Appear NORMAL APPEARANCE (NORMAL) Sodium 135 (135-145) mmol/L Potassium 3.3 L (3.5-5.0) mmol/L Chloride 99 L (101-111) mmol/L Carbon Dioxide 26 (21-32) mmol/L Anion Gap 10.0 (6-13) BUN 14 (6-20) mg/dL Creatinine 0.8 (0.6-1.2) mg/dL Estimated GFR (MDRD) 101 (>89) Glucose 117 H (70-100) mg/dL POC Whole Bld Glucose 119 H (70 - 100) mg/dL Calcium 8.3 L (8.5-10.3) mg/dL Phosphorus 2.5 (2.5-4.6) mg/dL Magnesium 2.1 (1.7-2.8) mg/dL Stl C. diff Tox B Gene (NEGATIVE) 11/17/20 11/17/20 Range/Units 17:54 15:30 WBC (4.8-10.8) x10^3/uL RBC (4.70-6.10) 10^6/uL Hgb (14.0-18.0) g/dL Hct (42.0-52.0) % MCV (80.0-94.0) fL MCH (27.0-31.0) pg MCHC (32.0-36.0) g/dL RDW (12.0-15.0) % Plt Count (130-450) 10^3/uL MPV (7.4-11.4) fL Neut # (Auto) Lymph # (Auto) Allen # (Auto) Eos # (Auto) Baso # (Auto) Absolute Nucleated RBC Total Counted Band Neuts % (Manual) (0 - 10) % Abnorm Lymph % (Manual) % Nucleated RBC % Neutrophils # (Manual) (1.5-6.6) 10^3/uL Lymphocytes # (Manual) (1.5-3.5) 10^3/uL Monocytes # (Manual) (0.0-1.0) 10^3/uL Eosinophils # (Manual) (0-0.7) 10^3/uL Basophils # (Manual) (0-0.1) 10^3/uL Differential Comment WBC Morphology (NORMAL) Platelet Estimate (NORMAL) Platelet Morphology (NORMAL) RBC Morph Micro Appear (NORMAL) Sodium (135-145) mmol/L Potassium (3.5-5.0) mmol/L Chloride (101-111) mmol/L Carbon Dioxide (21-32) mmol/L Anion Gap (6-13) BUN (6-20) mg/dL Creatinine (0.6-1.2) mg/dL Estimated GFR (MDRD) (>89) Glucose (70-100) mg/dL POC Whole Bld Glucose 146 H (70 - 100) mg/dL Calcium (8.5-10.3) mg/dL Phosphorus (2.5-4.6) mg/dL Magnesium (1.7-2.8) mg/dL Stl C. diff Tox B Gene POSITIVE A* (NEGATIVE) Assessment/Plan - Problem List (1) Status post reversal of ileostomy Impression: He was hypoxic this evening saturating 90% on room air. I suspect this is likely due to pulmonary vascular congestion as he is net positive over 10 L sinc e admission or atelectasis. He was initially quite hypovolemic and was resuscitated with IV fluids but even over the past 48 hours, he is net +8 L. We will order a chest x-ray for further evaluation given elevated white count but low suspicion for pneumonia. We will discontinue his IV fluids. We will hold off on diuresis at this time given he is having diarrhea and was initially quite hypovolemic and we do not want him to become dehydrated there is ongoing diarrhea. Continue submental oxygen as needed for goal saturation greater than 92%. Incentive spirometry. (2) C. difficile diarrhea Impression: His C. difficile was positive this evening. He has been started on oral vancomycin by general surgery. We will discontinue his IV fluids given the likely pulmonary vascular congestion but will hold off on diuresis given his ongoing diarrhea. Hold bowel regimen. (3) Postoperative anemia Impression: He required 2 units of packed red blood cells postoperatively. Hemoglobin has appeared to stabilize at around 8. I suspect the value of 10.2 on the third was not accurate. At this time, the has been no evidence of bleeding but we will continue to monitor. Would need to consider reimaging if his hemoglobin continues to decrease. (4) Demand ischemia Impression: This is now resolved. Initial troponin was elevated in the 400s and concern was for NSTEMI. This is not felt to be more likely demand ischemia. His EKG did not suggest ischemia and his echocardiogram revealed a preserved ejection fraction without any wall motion abnormalities. (5) Hypertension Impression: Well-controlled on amlodipine which we will continue. (6) Status post reversal of ileostomy Impression: He is now postop day 5. He has been tolerating a soft diet. Remains on Zosyn IV per general surgery. Management as per general surgey.
--- NOTE | 2020-11-18 23:32 | PROVIDER PROGRESS NOTE ---
Progress Note Subjective Much improved. Positive bowel function. Diagnosed with C. difficile colitis. No further transfusions or issues over the weekend. Called patient's spouse with update. Denies chest pain/sob. Voiding spontaneously. Pre-Op Diagnosis: H/O LAR for complicated diverticulitis; distal ileal perf on enterosscopy Procedure Performed: 1. Mini laparotomy 2. Diagnostic laparoscopy 3. Ileostomy reversal and small bowel resection 4. Abdominal washout 5. Drain placement 6. Extensive adhesiolysis including right colonic mobilization Post Op Diagnosis: Same; terminal ileal stricturing; right pelvic side wall adhesions Objective Afebrile, hemodynamically acceptable General Appearance: positive: No acute distress Eyes Bilateral: positive: Normal inspection ENT: positive: ENT inspection nml Neck: positive: Nml inspection Respiratory: positive: Chest non-tender, No respiratory distress, Breath sounds nml. negative: Wheezes, Rales, Rhonchi Cardiovascular: positive: Regular rate & rhythm Extremities: positive: Non-tender, Full ROM, Nml appearance Neurologic/Psychiatric: positive: Oriented x3, CN's nml (2-12) Abdomen soft, appropriately tender, no rebound no guarding, nondistended. Impression/Plan Postoperative day #6 with elevated troponin, tachycardia, lactic acidosis, as well as syncopal episode postoperative day #0. EKG has been without any significant changes. He has had no chest pain and no dyspnea. His echocardiography was without any significant wall motion abnormality. Extensive work-up which revealed elevated troponins. Appreciate hospitalist consultation and input on this patient He was started on a heparin drip including aspirin. Suspected demand ischemia, no EKG changes. Anemia stable, however discontinued the Hep gtt. Plan transfusion. Continues with loose stooling from C. difficile colitis. Plan going forward is as follows: (1) GI - Resume IV fluid, discontinue bowel regimen. GI ppx. Opiate sparring analgesia. (2) SURGERY - Continue daily dressing changes to the patient's historic ileostomy site (3) Renal/Lytes - continue IVF. Renal indices within normal limits. (4) Respiratory - O2 as necessary. Continue IS. (5) Heme - STOPPED heparin infusion without bolus over concern for acute blood loss anemia. Serial H&H's. Previously transfused 2unit pRBC. Transfuse venofer over 5 days completed. H&H stable thus far. (6) Cardiovascular - HD acceptable. Continue telemetry. Concern for non-STEMI. Echo with no wall motion abnormality. (7) Neuro - Opiate sparring analgesia. (8) Immune/Infectious Disease - Continue vancomycin for C. difficile colitis. Persistent leukocytosis, may consider CT chest abdomen pelvis to evaluate for occult fluid collections although the patient has been afebrile. Though likely leukocytosis secondary to active colitis. (9) PT/OT
[2020-11-19] MEDS: ACETAMINOPHEN 500 MG TABLET PO PRN ×4 (00:20→16:18)
[2020-11-19] MEDS: methocarbamoL 500 MG TABLET PO SCH ×4 (00:21→17:52)
[2020-11-19] MEDS: oxyCODONE 5 MG TABLET PO PRN ×2 (00:21→06:30)
[2020-11-19] MEDS: SODIUM CHLORIDE FLUSH 0.9% 10 ML SYRINGE IVP SCH ×3 (00:21→16:18)
[2020-11-19 06:21] LABS: BASOPHILS % (AUTO) 0.3 %; EOSINOPHILS % (AUTO) 0.3 %; HCT - HEMATOCRIT 27.3 % (42.0-52.0); HGB - HEMOGLOBIN 8.9 g/dL (14.0-18.0); MEAN CORPUSCULAR HEMOGLOBIN 29.7 pg (27.0-31.0); MEAN CORPUSCULAR HGB CONC 32.6 g/dL (32.0-36.0); MEAN PLATELET VOLUME 9.3 fL (7.4-11.4); NEUTROPHILS % (AUTO) 83.3 %; PLT - PLATELET COUNT 355 10^3/uL (130-450); RED CELL DISTRIBUTION WIDTH 14.1 % (12.0-15.0); WHITE BLOOD COUNT 23.4 x10^3/uL (4.8-10.8)
[2020-11-19 06:24] LABS: ABNORMAL LYMPHS % (MANUAL) 0 %
[2020-11-19 06:30] LABS: CALCIUM 8.2 mg/dL (8.5-10.3); CREATININE 0.7 mg/dL (0.6-1.2); MAGNESIUM 2.1 mg/dL (1.7-2.8)
[2020-11-19] MEDS: ONDANSETRON 4 MG/2 ML VIAL IVP PRN ×3 (06:30→19:26)
[2020-11-19 07:05] LABS: BAND NEUTROPHILS % (MANUAL) 2 %; LYMPHOCYTES # (MANUAL) 1.6 10^3/uL (1.5-3.5); LYMPHOCYTES % (MANUAL) 7 %; MONOCYTES # (MANUAL) 2.8 10^3/uL (0.0-1.0)
[2020-11-19 07:08] LABS: PLATELET ESTIMATE, MANUAL NORMAL (130-450,000) (NORMAL); PLATELET MORPHOLOGY NORMAL APPEARANCE (NORMAL); RBC MORPHOLOGY (MULTIPLE) 1+ POLYCHR (NORMAL); WBC MORPHOLOGY (MULTIPLE) NORMAL APPEARANCE (NORMAL)
[2020-11-19 07:09] LABS: DIFFERENTIAL COMMENT MANUAL DIFFERENTIAL
--- NOTE | 2020-11-19 08:15 | PROVIDER PROGRESS NOTE ---
Assessment/Plan - Problem List (1) Status post reversal of ileostomy Assessment/Plan: Post op day 6. Tolerating soft diet however bloated. Managed by general surgery (2) C. difficile diarrhea Assessment/Plan: On vancomycin 500mg po qid Day#2 WBC today was slightly more elevated at 23.4 and patient was febrile at 39C. Tylenol given. If WBC continues to be elevated will, frequency of stools not improving and patient continue to be febrile, Will consider adding flagyl. Continue relistor and soft diet (3) Postoperative anemia Assessment/Plan: Stable. Hgb 8.9. No bleeding. Continue to monitor (4) Hypertension Assessment/Plan: Controlled on amlodipine. Will order a prn if SBP is greater than 160 and sustains. - Current Meds Current Meds: Current Medications Generic Name Dose Route Start Last Admin Trade Name Freq PRN Reason Stop Dose Admin Acetaminophen 500 mg 11/15/20 17:20 11/19/20 06:30 Acetaminophen 500 Mg Tablet PO 500 mg Q4HR PRN Administration Pain or Fever > 38C (100.4F) Amlodipine Besylate 5 mg 11/15/20 16:16 11/18/20 09:01 Amlodipine 5 Mg Tablet PO 5 mg DAILY ASHWIN Administration Methocarbamol 500 mg 11/12/20 18:00 11/19/20 06:30 Methocarbamol 500 Mg Tablet PO 500 mg Q6HR ASHWIN Administration Mineral Oil 1 applic 11/16/20 16:23 11/16/20 20:52 Min Oil/Dimethicon/Coconut Oil 92 Gm Tube TOP 1 applic PRN PRN Administration Skin Care Morphine Sulfate 2 mg 11/15/20 21:58 11/16/20 09:49 Morphine 2 Mg/Ml Carpuject IVP 2 mg Q2HR PRN Administration PAIN Ondansetron HCl 4 mg 11/12/20 17:01 11/19/20 06:30 Ondansetron 4 Mg/2 Ml Vial IVP 4 mg Q6HR PRN Administration Nausea / Vomiting Oxycodone HCl 5 mg 11/16/20 11:35 11/19/20 06:30 Oxycodone 5 Mg Tablet PO 5 mg Q4HR PRN Administration PAIN Pregabalin 100 mg 11/12/20 21:00 11/18/20 20:38 Pregabalin 100 Mg Capsule PO 100 mg BID ASHWIN Administration Saccharomyces Boulardii 250 mg 11/18/20 10:37 11/18/20 16:16 Saccharomyces Boulardii 250 Mg Capsule PO 250 mg BIDWM ASHWIN Administration Sodium Chloride 10 ml 11/13/20 09:00 11/19/20 00:21 Sodium Chloride Flush 0.9% 10 Ml Syringe IVP 10 ml 0100,0900,1700 ASHWIN Administration Sodium Chloride 10 ml 11/13/20 01:35 11/17/20 20:56 Sodium Chloride Flush 0.9% 10 Ml Syringe IVP 10 ml PRN PRN Administration NEEDED PER PROVIDER ORDERS Sodium Chloride 20 ml 11/13/20 04:04 11/14/20 06:17 Sodium Chloride Flush 0.9% 10 Ml Syringe IVP 20 ml PRN PRN Administration After Blood Draw Vancomycin HCl 500 mg 11/17/20 21:00 11/18/20 20:38 Vancomycin 125 Mg Capsule PO 11/28/20 23:59 500 mg QID ASHWIN Administration - Lab Result Fish Bone Diagrams: 11/19/20 06:15 11/19/20 06:15 Subjective - Subjective Patient Reports: Other (Reports moderate right sided abdominal pain. He feels bloated. He was have diarrhea more frequently than hourly but none for about 5hrs prior to this visit. He was febrile in the morning. Temp 39C but afebrile this afternoon. No dyspnea, n/v or chest pain) Objective Vital Signs: Vital Signs - 24 hr 11/18/20 11/18/20 11/18/20 09:00 13:00 14:00 Temperature 36.6 C 36.8 C 36.5 C Heart Rate [ Brachial] Heart Rate [ 92 90 85 Monitoring electrodes] Respiratory 16 16 16 Rate Blood Pressure 133/80 H 130/67 125/69 [Left Brachial artery] O2 Saturation 94 95 95 11/18/20 11/18/20 11/18/20 15:33 17:05 20:42 Temperature 38.9 C H 38.3 C H 36.8 C Heart Rate [ 104 H Brachial] Heart Rate [ 92 Monitoring electrodes] Respiratory 24 20 Rate Blood Pressure 131/77 H 124/74 [Left Brachial artery] O2 Saturation 93 94 11/19/20 11/19/20 11/19/20 00:05 05:00 07:37 Temperature 37.9 C 37.7 C 37.5 C Heart Rate [ Brachial] Heart Rate [ 96 97 91 Monitoring electrodes] Respiratory 18 18 18 Rate Blood Pressure 117/74 149/76 H 120/69 [Left Brachial artery] O2 Saturation 93 92 93 Oxygen O2 Source Room air I&O (Last 24 Hrs): Intake and Output Totals x24h 11/17/20 11/18/20 11/19/20 23:59 23:59 23:59 Intake Total 6136.0 1544 Output Total 875 900 200 Balance 5261.0 644 -200 General: Alert, Oriented x3, Cooperative, Moderate distress HEENT: Atraumatic, PERRLA, EOMI Neck: Supple, No JVD Neuro: Alert, Non Focal, Oriented Times 3 Cardiovascular: Regular rate, Normal S1, Normal S2 Respiratory: Chest non-tender, No respiratory distress, Breath sounds nml Abdomen: Other (bloated, decreased bowel sounds, moderate tenderness) Extremities: No clubbing, No cyanosis, No edema Skin: No rashes, No breakdown - Results Results: Laboratory Results WBC 23.4 x10^3/uL (4.8-10.8) H 11/19/20 06:15 RBC 3.00 10^6/uL (4.70-6.10) L 11/19/20 06:15 Hgb 8.9 g/dL (14.0-18.0) L 11/19/20 06:15 Hct 27.3 % (42.0-52.0) L 11/19/20 06:15 MCV 91.0 fL (80.0-94.0) 11/19/20 06:15 MCH 29.7 pg (27.0-31.0) 11/19/20 06:15 MCHC 32.6 g/dL (32.0-36.0) 11/19/20 06:15 RDW 14.1 % (12.0-15.0) 11/19/20 06:15 Plt Count 355 10^3/uL (130-450) 11/19/20 06:15 MPV 9.3 fL (7.4-11.4) 11/19/20 06:15 Neut # (Auto) Not Reportable 11/19/20 06:15 Lymph # (Auto) Not Reportable 11/19/20 06:15 [place]ron # (Auto) Not Reportable 11/19/20 06:15 Eos # (Auto) Not Reportable 11/19/20 06:15 Baso # (Auto) Not Reportable 11/19/20 06:15 Absolute Nucleated RBC Not Reportable 11/19/20 06:15 Total Counted 100 11/19/20 06:15 Band Neuts % (Manual) 2 % (0-10) 11/19/20 06:15 Abnorm Lymph % (Manual) 0 % 11/19/20 06:15 Myelocytes % 1 % (-0) H 11/14/20 05:25 Nucleated RBC % Not Reportable 11/19/20 06:15 Neutrophils # (Manual) 19.0 10^3/uL (1.5-6.6) H 11/19/20 06:15 Lymphocytes # (Manual) 1.6 10^3/uL (1.5-3.5) 11/19/20 06:15 Monocytes # (Manual) 2.8 10^3/uL (0.0-1.0) H 11/19/20 06:15 Eosinophils # (Manual) 0.0 10^3/uL (0-0.7) 11/19/20 06:15 Basophils # (Manual) 0.0 10^3/uL (0-0.1) 11/19/20 06:15 Differential Comment MANUAL DIFFERENTIAL 11/19/20 06:15 Manual Slide Review Indicated 11/13/20 14:05 WBC Morphology NORMAL APPEARANCE (NORMAL) 11/19/20 06:15 Platelet Estimate NORMAL (130-450,000) (NORMAL) 11/19/20 06:15 Platelet Morphology NORMAL APPEARANCE (NORMAL) 11/19/20 06:15 RBC Morph Micro Appear 1+ POLYCHR (NORMAL) 11/19/20 06:15 PT 11.7 secs (9.9-12.6) 11/12/20 09:45 INR 1.0 (0.8-1.2) 11/12/20 09:45 Anti-Xa Level 0.3 U/mL (-0.7) 11/14/20 06:17 Bld Gas Analysis Time 0231 11/13/20 02:20 Sample Site RIGHT RADIAL 11/13/20 02:20 ABG pH 7.29 (7.35-7.45) L 11/13/20 02:20 ABG pCO2 25 mmHg (34-45) L* 11/13/20 02:20 ABG pO2 79 mmHg (80-100) L 11/13/20 02:20 ABG HCO3 11.7 mmol/L (22.0-26.0) L 11/13/20 02:20 ABG Total CO2 12.4 MMOL/L (21.0-29.0) L 11/13/20 02:20 ABG O2 Saturation 95 % (94-98) 11/13/20 02:20 ABG Base Excess -13.2 mmol/L (-2.0-3.0) L 11/13/20 02:20 Jose Test POSITIVE 11/13/20 02:20 Room Air YES 11/13/20 02:20 FiO2 0.21 11/13/20 02:20 Sodium 133 mmol/L (135-145) L 11/19/20 06:15 Potassium 3.0 mmol/L (3.5-5.0) L 11/19/20 06:15 Chloride 98 mmol/L (101-111) L 11/19/20 06:15 Carbon Dioxide 25 mmol/L (21-32) 11/19/20 06:15 Anion Gap 10.0 (6-13) 11/19/20 06:15 BUN 13 mg/dL (6-20) 11/19/20 06:15 Creatinine 0.7 mg/dL (0.6-1.2) 11/19/20 06:15 Estimated GFR (MDRD) 118 (>89) 11/19/20 06:15 Glucose 137 mg/dL (70-100) H 11/19/20 06:15 POC Whole Bld Glucose 119 mg/dL (70 - 100) H 11/17/20 23:45 Lactic Acid 2.4 mmol/L (0.5-2.2) H 11/13/20 14:05 Calcium 8.2 mg/dL (8.5-10.3) L 11/19/20 06:15 Phosphorus 2.5 mg/dL (2.5-4.6) 11/18/20 06:39 Magnesium 2.1 mg/dL (1.7-2.8) 11/19/20 06:15 Total Bilirubin 1.3 mg/dL (0.2-1.0) H 11/13/20 14:05 Direct Bilirubin 0.4 mg/dL (0.1-0.5) 11/13/20 00:31 AST 25 IU/L (10-42) 11/13/20 14:05 ALT 29 IU/L (10-60) 11/13/20 14:05 Alkaline Phosphatase 38 IU/L (42-121) L 11/13/20 14:05 Troponin I High Sens 224.9 ng/L (2.3-19.7) H* 11/14/20 08:25 Total Protein 5.7 g/dL (6.7-8.2) L 11/13/20 14:05 Albumin 3.0 g/dL (3.2-5.5) L 11/13/20 14:05 Globulin 2.7 g/dL (2.1-4.2) 11/13/20 14:05 Albumin/Globulin Ratio 1.1 (1.0-2.2) 11/13/20 14:05 Nasal Screen MRSA (PCR) NEGATIVE (NEGATIVE) 11/13/20 02:00 Stl C. diff Tox B Gene POSITIVE (NEGATIVE) A* 11/17/20 15:30 Blood Type O POSITIVE 11/13/20 00:31 Blood Type Recheck O POSITIVE 11/13/20 01:40 Antibody Screen NEGATIVE 11/13/20 00:31 Crossmatch IS Only See Detail 11/13/20 00:31 - Procedures Procedures: Procedures BYPASS ILEUM TO CUTANEOUS, PERCUTANEOUS ENDOSCOPIC APPROACH (09/13/20) COLONOSCOPY (05/29/13) EXCISION OF RECTUM, OPEN APPROACH (09/13/20) EXCISION OF SIGMOID COLON, OPEN APPROACH (09/13/20) INSERTION OF INFUSION DEV INTO SUP VENA CAVA, PERC APPROACH (09/13/20) INSPECTION OF LOWER INTESTINAL TRACT, ENDO (09/13/20) INTRODUCTION OF NUTRITIONAL INTO CENTRAL VEIN, PERC APPROACH (09/13/20) RELEASE ILEUM, PERCUTANEOUS ENDOSCOPIC APPROACH (09/13/20) RELEASE LEFT LARGE INTESTINE, PERC ENDO APPROACH (09/13/20) ABX Reporting Has patient been on IV antibiotics over the past 48 hours?: No
[2020-11-19] MEDS: SACCHAROMYCES BOULARDII 250 MG CAPSULE PO SCH ×2 (08:28→16:18)
[2020-11-19] MEDS: VANCOMYCIN 125 MG CAPSULE PO SCH ×4 (08:28→20:17)
[2020-11-19] MEDS: amLODIPine 5 MG TABLET PO SCH (08:28)
[2020-11-19] MEDS: SODIUM CHLORIDE FLUSH 0.9% 10 ML SYRINGE IVP PRN ×3 (08:28→19:26)
[2020-11-19] MEDS: PREGABALIN 100 MG CAPSULE PO SCH ×2 (08:28→20:17)
[2020-11-19] MEDS: POTASSIUM CHLOR 10 MEQ/100 ML 10 MEQ/100 ML BAG IV SCH ×4 (09:25→13:32)
[2020-11-19] MEDS ORDERED: POTASSIUM CHLORIDE 20 MEQ/15 ML UDC PO SCH (10:00)
[2020-11-19] MEDS ORDERED: POTASSIUM CHLOR 10 MEQ/100 ML 10 MEQ/100 ML BAG IV SCH (10:00)
[2020-11-19 10:12] LABS: ALBUMIN 2.4 g/dL (3.2-5.5); ALBUMIN/GLOBULIN RATIO 0.6 (1.0-2.2); BILIRUBIN,TOTAL 1.3 mg/dL (0.2-1.0); CALCIUM 8.4 mg/dL (8.5-10.3); CREATININE 0.8 mg/dL (0.6-1.2); POTASSIUM 3.1 mmol/L (3.5-5.0); TOTAL PROTEIN 6.1 g/dL (6.7-8.2)
[2020-11-19] MEDS ORDERED: D5NS W/20 MEQ KCL 1,000 ML IV SCH (13:00)
--- NOTE | 2020-11-19 19:09 | PROVIDER PROGRESS NOTE ---
Progress Note Subjective Much improved. Positive bowel function however distended. Diagnosed with C. difficile colitis. No further transfusions or issues over the weekend. Denies chest pain/sob. Voiding spontaneously. Pre-Op Diagnosis: H/O LAR for complicated diverticulitis; distal ileal perf on enterosscopy Procedure Performed: 1. Mini laparotomy 2. Diagnostic laparoscopy 3. Ileostomy reversal and small bowel resection 4. Abdominal washout 5. Drain placement 6. Extensive adhesiolysis including right colonic mobilization Post Op Diagnosis: Same; terminal ileal stricturing; right pelvic side wall adhesions Objective Afebrile, hemodynamically acceptable General Appearance: positive: No acute distress Eyes Bilateral: positive: Normal inspection ENT: positive: ENT inspection nml Neck: positive: Nml inspection Respiratory: positive: Chest non-tender, No respiratory distress, Breath sounds nml. negative: Wheezes, Rales, Rhonchi Cardiovascular: positive: Regular rate & rhythm Extremities: positive: Non-tender, Full ROM, Nml appearance Neurologic/Psychiatric: positive: Oriented x3, CN's nml (2-12) Abdomen soft, distended, appropriately tender, no rebound no guarding. Historic ileostomy site packing change. PICC line removed over concerns for febrile episodes and leukocytosis. Impression/Plan Postoperative day #7 currently with elevated WBC, C diff colitis, febrile episodes yesterday, with immediate post operative elevated troponin, tachycardia, lactic acidosis, as well as syncopal episode on postoperative day #0. EKG has been without any significant changes. He has had no chest pain and no dyspnea. His echocardiography was without any significant wall motion abnormality. Extensive work-up which revealed elevated troponins. Appreciate hospitalist consultation and input on this patient He was started on a heparin drip including aspirin. Suspected demand ischemia, no EKG changes. Anemia stable, however discontinued the Hep gtt. Continues with loose stooling from C. difficile colitis. Plan going forward is as follows: (1) GI - Resume IV fluid, discontinue bowel regimen. GI ppx. Opiate sparring analgesia. (2) SURGERY - Continue daily dressing changes to the patient's historic ileostomy site (3) Renal/Lytes - continue IVF. Renal indices within normal limits. (4) Respiratory - O2 as necessary. Continue IS. (5) Heme - STOPPED heparin infusion without bolus over concern for acute blood loss anemia. Serial H&H's. Previously transfused 2unit pRBC. Transfuse venofer over 5 days completed. H&H stable thus far. (6) Cardiovascular - HD acceptable. Continue telemetry. Concern for non-STEMI. Echo with no wall motion abnormality. (7) Neuro - Opiate sparring analgesia. (8) Immune/Infectious Disease - Continue vancomycin for C. difficile colitis. Persistent leukocytosis, will proceed with CT chest abdomen pelvis to evaluate for occult fluid collections although the patient has been afebrile. Though likely leukocytosis secondary to active colitis. (9) PT/OT
[2020-11-19] MEDS ORDERED: polyethylene glycoL 3350 17 GM PACKET PO PRN (19:37)
[2020-11-19] MEDS ORDERED: SIMETHICONE 40 MG/0.6 ML 30 ML BOTTLE PO PRN (19:40)
[2020-11-19] MEDS: SIMETHICONE CHEW 80 MG TABLET PO SCH ×2 (20:17→20:28)
[2020-11-19] MEDS: traMADol 50 MG TABLET PO PRN (20:17)
[2020-11-19] MEDS: METOCLOPRAMIDE 10 MG/2 ML VIAL IVP SCH (20:17)
[2020-11-19] MEDS: D5NS W/20 MEQ KCL 1,000 ML IV SCH (20:18)
[2020-11-19] MEDS: HEPARIN 5,000 UNIT/ML VIAL SUBQ SCH (20:18)
--- OUTSIDE RECORDS SUMMARY | 2020-11-19 22:01 | EXTERNAL MEDICAL SUMMARY RPT | Continuity of Care Document ---
:1965 Demographics Phone Unavailable Preferred Language Unknown Marital Status Unknown Jewish Affiliation Unknown Race Unknown Ethnic Group Unknown Author Organization [facility] Address [address] [place] [address] Phone Social History date description facility [id number]
[2020-11-20] MEDS: ACETAMINOPHEN 500 MG TABLET PO PRN ×2 (00:51→13:05)
[2020-11-20] MEDS: methocarbamoL 500 MG TABLET PO SCH ×4 (00:51→18:29)
[2020-11-20] MEDS: METOCLOPRAMIDE 10 MG/2 ML VIAL IVP SCH ×4 (00:58→18:26)
[2020-11-20 04:48] LABS: BASOPHILS % (AUTO) 0.4 %; EOSINOPHILS % (AUTO) 0.2 %; HCT - HEMATOCRIT 27.3 % (42.0-52.0); HGB - HEMOGLOBIN 8.7 g/dL (14.0-18.0); LYMPHOCYTES % (AUTO) 4.3 %; MEAN CORPUSCULAR HGB CONC 31.9 g/dL (32.0-36.0); MEAN PLATELET VOLUME 9.8 fL (7.4-11.4); MONOCYTES % (AUTO) 5.3 %; NEUTROPHILS % (AUTO) 87.2 %; PLT - PLATELET COUNT 394 10^3/uL (130-450); RED CELL DISTRIBUTION WIDTH 14.5 % (12.0-15.0); WHITE BLOOD COUNT 32.1 x10^3/uL (4.8-10.8)
[2020-11-20 04:54] LABS: CALCIUM 8.2 mg/dL (8.5-10.3); CREATININE 0.8 mg/dL (0.6-1.2); MAGNESIUM 2.1 mg/dL (1.7-2.8); POTASSIUM 3.3 mmol/L (3.5-5.0)
[2020-11-20 05:00] LABS: ABNORMAL LYMPHS % (MANUAL) 0 %
[2020-11-20 05:14] LABS: BAND NEUTROPHILS % (MANUAL) 12 %; DIFFERENTIAL COMMENT MANUAL DIFFERENTIAL; LYMPHOCYTES % (MANUAL) 3 %; MONOCYTES # (MANUAL) 2.6 10^3/uL (0.0-1.0); NEUTROPHILS # (MANUAL) 28.6 10^3/uL (1.5-6.6); PLATELET ESTIMATE, MANUAL NORMAL (130-450,000) (NORMAL); RBC MORPHOLOGY (MULTIPLE) NORMAL APPEARANCE (NORMAL); WBC MORPHOLOGY (MULTIPLE) 1+ TOXIC GRANULATION (NORMAL)
[2020-11-20] MEDS: SODIUM CHLORIDE FLUSH 0.9% 10 ML SYRINGE IVP SCH ×3 (06:19→18:29)
--- NOTE | 2020-11-20 07:53 | PROVIDER PROGRESS NOTE ---
Assessment/Plan - Problem List (1) Status post reversal of ileostomy Assessment/Plan: Post op day 7. Tolerating soft diet however bloated. Managed by general surgery (2) C. difficile diarrhea Assessment/Plan: Severe WBC increased from 23 to 32. Dave score 3 On Comycin 500 mg p.o. 4 times daily day #3 Flagyl 500 mg IV 3 times daily ordered. Day #1 Patient receiving Tylenol. On florastor (3) Postoperative anemia Assessment/Plan: Stable. Hgb 8.7. No bleeding. Continue to monitor (4) Hypertension Assessment/Plan: Controlled on amlodipine. Will order a prn if SBP is greater than 160 and sustains. (5) Demand ischemia Assessment/Plan: Resolved with IV hydration (6) Hypokalemia Assessment/Plan: Due to diarrhea from C. diff Will replace and recheck. Magnesium normal at 2.1 - Current Meds Current Meds: Current Medications Generic Name Dose Route Start Last Admin Trade Name Freq PRN Reason Stop Dose Admin Acetaminophen 500 mg 11/15/20 17:20 11/20/20 00:51 Acetaminophen 500 Mg Tablet PO 500 mg Q4HR PRN Administration Pain or Fever > 38C (100.4F) Amlodipine Besylate 5 mg 11/15/20 16:16 11/19/20 08:28 Amlodipine 5 Mg Tablet PO 5 mg DAILY ASHWIN Administration Heparin Sodium (Porcine) 5,000 unit 11/19/20 21:00 11/19/20 20:18 Heparin 5,000 Unit/Ml Vial SUBQ 5,000 unit BID ASHWIN Administration Potassium Chloride/Dextrose/Sod Cl 1,000 mls @ 75 mls/hr 11/19/20 19:40 02/03 20:18 D5ns W/20 Meq Kcl IV 75 mls/hr .[id number] ASHWIN Administration Methocarbamol 500 mg 11/12/20 18:00 11/20/20 07:01 Methocarbamol 500 Mg Tablet PO Not Given Q6HR ASHWIN Metoclopramide HCl 10 mg 11/19/20 20:00 11/20/20 06:25 Metoclopramide 10 Mg/2 Ml Vial IVP 10 mg Q6HR ASHWIN Administration Mineral Oil 1 applic 11/16/20 16:23 11/16/20 20:52 Min Oil/Dimethicon/Coconut Oil 92 Gm Tube TOP 1 applic PRN PRN Administration Skin Care Ondansetron HCl 4 mg 11/12/20 17:01 11/19/20 19:26 Ondansetron 4 Mg/2 Ml Vial IVP 4 mg Q6HR PRN Administration Nausea / Vomiting Oxycodone HCl 5 mg 11/16/20 11:35 11/19/20 06:30 Oxycodone 5 Mg Tablet PO 5 mg Q4HR PRN Administration PAIN Polyethylene Glycol 17 gm 11/19/20 19:37 11/19/20 20:49 Polyethylene Glycol 3350 17 Gm Packet PO 17 gm DAILY PRN Administration Bowel Protocol Pregabalin 100 mg 11/12/20 21:00 11/19/20 20:17 Pregabalin 100 Mg Capsule PO 100 mg BID ASHWIN Administration Saccharomyces Boulardii 250 mg 11/18/20 10:37 11/19/20 16:18 Saccharomyces Boulardii 250 Mg Capsule PO 250 mg BIDWM ASHWIN Administration Simethicone 80 mg 11/19/20 20:00 11/19/20 20:28 Simethicone Chew 80 Mg Tablet PO Not Given 0900,1300,1800,2100 ASHWIN Sodium Chloride 10 ml 11/13/20 09:00 11/20/20 06:19 Sodium Chloride Flush 0.9% 10 Ml Syringe IVP Not Given 0100,0900,1700 ASHWIN Sodium Chloride 10 ml 11/13/20 01:35 11/19/20 19:26 Sodium Chloride Flush 0.9% 10 Ml Syringe IVP 10 ml PRN PRN Administration NEEDED PER PROVIDER ORDERS Sodium Chloride 20 ml 11/13/20 04:04 11/14/20 06:17 Sodium Chloride Flush 0.9% 10 Ml Syringe IVP 20 ml PRN PRN Administration After Blood Draw Tramadol HCl 50 mg 11/19/20 19:39 11/19/20 20:17 Tramadol 50 Mg Tablet PO 50 mg Q4HR PRN Administration PAIN Vancomycin HCl 500 mg 11/17/20 21:00 11/19/20 20:17 Vancomycin 125 Mg Capsule PO 11/28/20 23:59 500 mg QID ASHWIN Administration - Lab Result Fish Bone Diagrams: 11/20/20 04:20 11/20/20 04:20 - Additional Planning My Orders: My Active Orders 11/20/20 CULTURE, BLOOD #1 [RM] Routine CULTURE, BLOOD #2 [RM] Routine 11/20/20 07:45 LACTIC ACID, VENOUS [CHEM] Stat 11/20/20 08:00 Potassium Chlor 10 Meq/100 ml [Potassium Chloride] 10 meq in 100 ml IV Q1H metroNIDAZOLE/NS 500 mg/100 mL Q8H metroNIDAZOLE 500 MG/100 ML [Flagyl 500 mg/100 ml] 500 mg in 100 ml IV Q8H Subjective - Subjective Patient Reports: Other ( Patient denies pain but appears to be in discomfort. This morning he has had diarrhea every hour. He denies chest pain or dyspnea. He was febrile yesterday with temp of 38.8C at midnight. WBC increased from 23 to 32.) Objective Vital Signs: Vital Signs - 24 hr 11/19/20 11/19/20 11/19/20 11:44 12:48 16:10 Temperature 39.0 C H 37.9 C 39.1 C H Heart Rate [ 106 H Brachial] Heart Rate [ 103 H Monitoring electrodes] Respiratory 18 20 Rate Blood Pressure 146/73 H 138/87 H [Left Brachial artery] Blood Pressure [Right Brachial artery] O2 Saturation 92 93 11/19/20 11/20/20 11/20/20 20:19 00:00 05:18 Temperature 38.5 C H 38.8 C H 37.3 C Heart Rate [ 105 H 105 H 101 H Brachial] Heart Rate [ Monitoring electrodes] Respiratory 22 24 24 Rate Blood Pressure 139/78 H [Left Brachial artery] Blood Pressure 125/55 L 134/75 H [Right Brachial artery] O2 Saturation 91 L 91 L 92 Oxygen O2 Source Room air I&O (Last 24 Hrs): Intake and Output Totals x24h 11/18/20 11/19/20 11/20/20 23:59 23:59 23:59 Intake Total 1544 1642 Output Total 900 1600 570 Balance 644 42 -570 General: Alert, Oriented x3, Cooperative, Mild distress, Moderate distress HEENT: PERRLA, EOMI Neck: Supple, No JVD Neuro: Alert, Non Focal, Oriented Times 3 Cardiovascular: Regular rate, Normal S1, Normal S2, No murmurs Respiratory: Chest non-tender, No respiratory distress, Breath sounds nml Abdomen: Normal bowel sounds, No tenderness, Other (bloated.) Extremities: No clubbing, No cyanosis, No edema Skin: No rashes, No breakdown - Results Results: Laboratory Results WBC 32.1 x10^3/uL (4.8-10.8) H 11/20/20 04:20 RBC 3.00 10^6/uL (4.70-6.10) L 11/20/20 04:20 Hgb 8.7 g/dL (14.0-18.0) L 11/20/20 04:20 Hct 27.3 % (42.0-52.0) L 11/20/20 04:20 MCV 91.0 fL (80.0-94.0) 11/20/20 04:20 MCH 29.0 pg (27.0-31.0) 11/20/20 04:20 MCHC 31.9 g/dL (32.0-36.0) L 11/20/20 04:20 RDW 14.5 % (12.0-15.0) 11/20/20 04:20 Plt Count 394 10^3/uL (130-450) 11/20/20 04:20 MPV 9.8 fL (7.4-11.4) 11/20/20 04:20 Neut # (Auto) Not Reportable 11/20/20 04:20 Lymph # (Auto) Not Reportable 11/20/20 04:20 [place] # (Auto) Not Reportable 11/20/20 04:20 Eos # (Auto) Not Reportable 11/20/20 04:20 Baso # (Auto) Not Reportable 11/20/20 04:20 Absolute Nucleated RBC Not Reportable 11/20/20 04:20 Total Counted 100 11/20/20 04:20 Band Neuts % (Manual) 12 % (0-10) H 11/20/20 04:20 Abnorm Lymph % (Manual) 0 % 11/20/20 04:20 Myelocytes % 1 % (-0) H 11/14/20 05:25 Nucleated RBC % Not Reportable 11/20/20 04:20 Neutrophils # (Manual) 28.6 10^3/uL (1.5-6.6) H 11/20/20 04:20 Lymphocytes # (Manual) 1.0 10^3/uL (1.5-3.5) L 11/20/20 04:20 Monocytes # (Manual) 2.6 10^3/uL (0.0-1.0) H 11/20/20 04:20 Eosinophils # (Manual) 0.0 10^3/uL (0-0.7) 11/20/20 04:20 Basophils # (Manual) 0.0 10^3/uL (0-0.1) 11/20/20 04:20 Differential Comment MANUAL DIFFERENTIAL 11/20/20 04:20 Manual Slide Review Indicated 11/13/20 14:05 WBC Morphology 1+ TOXIC GRANULATION (NORMAL) 11/20/20 04:20 Platelet Estimate NORMAL (130-450,000) (NORMAL) 11/20/20 04:20 Platelet Morphology NORMAL APPEARANCE (NORMAL) 11/19/20 06:15 RBC Morph Micro Appear NORMAL APPEARANCE (NORMAL) 11/20/20 04:20 PT 11.7 secs (9.9-12.6) 11/12/20 09:45 INR 1.0 (0.8-1.2) 11/12/20 09:45 Anti-Xa Level 0.3 U/mL (-0.7) 11/14/20 06:17 Bld Gas Analysis Time 0231 11/13/20 02:20 Sample Site RIGHT RADIAL 11/13/20 02:20 ABG pH 7.29 (7.35-7.45) L 11/13/20 02:20 ABG pCO2 25 mmHg (34-45) L* 11/13/20 02:20 ABG pO2 79 mmHg (80-100) L 11/13/20 02:20 ABG HCO3 11.7 mmol/L (22.0-26.0) L 11/13/20 02:20 ABG Total CO2 12.4 MMOL/L (21.0-29.0) L 11/13/20 02:20 ABG O2 Saturation 95 % (94-98) 11/13/20 02:20 ABG Base Excess -13.2 mmol/L (-2.0-3.0) L 11/13/20 02:20 Jose Test POSITIVE 11/13/20 02:20 Room Air YES 11/13/20 02:20 FiO2 0.21 11/13/20 02:20 Sodium 135 mmol/L (135-145) 11/20/20 04:20 Potassium 3.3 mmol/L (3.5-5.0) L 11/20/20 04:20 Chloride 100 mmol/L (101-111) L 11/20/20 04:20 Carbon Dioxide 23 mmol/L (21-32) 11/20/20 04:20 Anion Gap 12.0 (6-13) 11/20/20 04:20 BUN 11 mg/dL (6-20) 11/20/20 04:20 Creatinine 0.8 mg/dL (0.6-1.2) 11/20/20 04:20 Estimated GFR (MDRD) 101 (>89) 11/20/20 04:20 Glucose 159 mg/dL (70-100) H 11/20/20 04:20 POC Whole Bld Glucose 119 mg/dL (70 - 100) H 11/17/20 23:45 Lactic Acid 2.4 mmol/L (0.5-2.2) H 11/13/20 14:05 Calcium 8.2 mg/dL (8.5-10.3) L 11/20/20 04:20 Phosphorus 2.5 mg/dL (2.5-4.6) 11/19/20 06:15 Magnesium 2.1 mg/dL (1.7-2.8) 11/20/20 04:20 Total Bilirubin 1.3 mg/dL (0.2-1.0) H 11/19/20 06:15 Direct Bilirubin 0.4 mg/dL (0.1-0.5) 11/13/20 00:31 AST 23 IU/L (10-42) 11/19/20 06:15 ALT 20 IU/L (10-60) 11/19/20 06:15 Alkaline Phosphatase 131 IU/L (42-121) H 11/19/20 06:15 Troponin I High Sens 224.9 ng/L (2.3-19.7) H* 11/14/20 08:25 Total Protein 6.1 g/dL (6.7-8.2) L 11/19/20 06:15 Albumin 2.4 g/dL (3.2-5.5) L 11/19/20 06:15 Globulin 3.7 g/dL (2.1-4.2) 11/19/20 06:15 Albumin/Globulin Ratio 0.6 (1.0-2.2) L 11/19/20 06:15 Nasal Screen MRSA (PCR) NEGATIVE (NEGATIVE) 11/13/20 02:00 Stl C. diff Tox B Gene POSITIVE (NEGATIVE) A* 11/17/20 15:30 Blood Type O POSITIVE 11/13/20 00:31 Blood Type Recheck O POSITIVE 11/13/20 01:40 Antibody Screen NEGATIVE 11/13/20 00:31 Crossmatch IS Only See Detail 11/13/20 00:31 - Procedures Procedures: Procedures BYPASS ILEUM TO CUTANEOUS, PERCUTANEOUS ENDOSCOPIC APPROACH (09/13/20) COLONOSCOPY (05/29/13) EXCISION OF RECTUM, OPEN APPROACH (09/13/20) EXCISION OF SIGMOID COLON, OPEN APPROACH (09/13/20) INSERTION OF INFUSION DEV INTO SUP VENA CAVA, PERC APPROACH (09/13/20) INSPECTION OF LOWER INTESTINAL TRACT, ENDO (09/13/20) INTRODUCTION OF NUTRITIONAL INTO CENTRAL VEIN, PERC APPROACH (09/13/20) RELEASE ILEUM, PERCUTANEOUS ENDOSCOPIC APPROACH (09/13/20) RELEASE LEFT LARGE INTESTINE, PERC ENDO APPROACH (09/13/20) ABX Reporting Has patient been on IV antibiotics over the past 48 hours?: Yes
[2020-11-20] MEDS ORDERED: metroNIDAZOLE 500 MG/100 ML 500 MG/100 ML BAG IV SCH (08:00)
[2020-11-20] MEDS: HEPARIN 5,000 UNIT/ML VIAL SUBQ SCH ×2 (08:49→21:03)
[2020-11-20] MEDS: SIMETHICONE CHEW 80 MG TABLET PO SCH ×4 (08:58→21:03)
[2020-11-20] MEDS: PREGABALIN 100 MG CAPSULE PO SCH ×2 (08:58→21:03)
[2020-11-20] MEDS: SACCHAROMYCES BOULARDII 250 MG CAPSULE PO SCH ×2 (08:58→18:29)
[2020-11-20] MEDS: amLODIPine 5 MG TABLET PO SCH (08:58)
[2020-11-20] MEDS: VANCOMYCIN 125 MG CAPSULE PO SCH ×4 (08:58→21:03)
[2020-11-20] MEDS: SODIUM CHLORIDE FLUSH 0.9% 10 ML SYRINGE IVP PRN ×2 (10:05→13:05)
[2020-11-20] MEDS: POTASSIUM CHLOR 10 MEQ/100 ML 10 MEQ/100 ML BAG IV SCH ×4 (10:10→16:26)
[2020-11-20] MEDS ORDERED: IOPAMIDOL-300 50 ML VIAL ONE (10:17)
[2020-11-20] MEDS ORDERED: IOPAMIDOL-300 100 ML VIAL ONE (10:18)
[2020-11-20] MEDS ORDERED: POTASSIUM CHLORIDE 20 MEQ/15 ML UDC PO SCH (11:00)
[2020-11-20] MEDS ORDERED: POTASSIUM CHLOR 10 MEQ/100 ML 10 MEQ/100 ML BAG IV SCH (11:00)
[2020-11-20] MEDS: D5NS W/20 MEQ KCL 1,000 ML IV SCH (13:05)
--- NOTE | 2020-11-20 13:48 | CT Report ---
PROCEDURE: ANGIO CHEST W/WO INDICATIONS: r/out PE CONTRAST: IV CONTRAST: Isovue 300 ml: 100 PO CONTRAST: Isovue 300 ml50 TECHNIQUE: After the administration of intravenous contrast, 2 mm thick sections acquired from the pulmonary api lazara to the posterior costophrenic angles. 3-dimensional maximum intensity projection (MIP) coronal a nd sagittal reformats were then acquired through the thorax. For radiation dose reduction, the follow ing was used: automated exposure control, adjustment of mA and/or kV according to patient size. COMPARISON: Chest x-ray dated 11/12/2020 and chest x-ray dated 11/17/2020 FINDINGS: Image quality: Limited by motion artifact Pulmonary arteries: Evaluation for pulmonary embolus is limited secondary to motion artifact. No cent ral filling defect within the pulmonary vasculature. Lungs and pleura: No pneumothorax. Small right pleural effusion. Mild dependent bilateral lower lobe airspace opacities. Central and peripheral airways are patent. Mediastinum: Heart size is normal, without pericardial effusion. No mediastinal or hilar adenopathy . Thoracic aorta is normal in caliber and enhancement. Esophagus is normal in caliber, without hiat al hernia. Bones and chest wall: No suspicious bony lesions. Ribs and thoracic spine appear intact throughout. The thyroid is normal. No axillary or supraclavicular adenopathy. Abdomen: Visualized portions of the upper abdomen demonstrate an incompletely visualized, loculated fluid and gas collection adjacent to the right hepatic lobe inferiorly, measuring at least 20 cm ante roposterior. IMPRESSION: 1. Limited evaluation for pulmonary embolus secondary to motion artifact. No definite pulmonary embol us. Repeat examination or VQ scan may be helpful for further assessment. 2. Small right pleural effusion. 3. Bibasilar atelectasis versus pneumonia. 4. Incompletely visualized perihepatic fluid and gas collection. IV and oral contrast-enhanced CT of the abdomen and pelvis is recommended for confirmation and for further assessment. Reviewed by: Mark Luong MD on 11/20/2020 1:47 PM PDT Approved by: Mark Luong MD on 11/20/2020 1:47 PM PDT Station ID: [id number]
--- NOTE | 2020-11-20 14:49 | PROVIDER PROGRESS NOTE ---
Progress Note Subjective Status post CT angio of the chest and CT of the abdomen. Please see EMR for results however patient without any evidence of pulmonary embolism or acute pulmonary process. There was indeed a large air-fluid collection within the abdomen consistent with abscess. Diagnosed with C. difficile colitis. Denies chest pain/sob. Voiding spontaneously. Pre-Op Diagnosis: H/O LAR for complicated diverticulitis; distal ileal perf on enterosscopy Procedure Performed: 1. Mini laparotomy 2. Diagnostic laparoscopy 3. Ileostomy reversal and small bowel resection 4. Abdominal washout 5. Drain placement 6. Extensive adhesiolysis including right colonic mobilization Post Op Diagnosis: Same; terminal ileal stricturing; right pelvic side wall adhesions Objective Afebrile, hemodynamically acceptable General Appearance: positive: No acute distress Eyes Bilateral: positive: Normal inspection ENT: positive: ENT inspection nml Neck: positive: Nml inspection Respiratory: positive: Chest non-tender, No respiratory distress, Breath sounds nml. negative: Wheezes, Rales, Rhonchi Cardiovascular: positive: Regular rate & rhythm Extremities: positive: Non-tender, Full ROM, Nml appearance Neurologic/Psychiatric: positive: Oriented x3, CN's nml (2-12) Abdomen soft, distended, appropriately tender, no rebound no guarding. Historic ileostomy site packing change. PICC line removed over concerns for febrile episodes and leukocytosis. Impression/Plan Postoperative day #8 currently with Significant elevated WBC, C diff colitis, febrile episodes yesterday, with immediate post operative elevated troponin, tachycardia, lactic acidosis, as well as syncopal episode on postoperative day #0. EKG has been without any significant changes. He has had no chest pain and no dyspnea. His echocardiography was without any significant wall motion abnormality. Extensive work-up which revealed elevated troponins. Appreciate hospitalist consultation and input on this patient He was started on a heparin drip including aspirin. Suspected demand ischemia, no EKG changes. Anemia stable, however discontinued the Hep gtt. Continues with loose stooling from C. difficile colitis. Negative for pulmonary embolism by CT angio. CT abdomen reveals large intra- abdominal abscess. Air-fluid level. Discussed with interventional radiology at [facility]. Plan transfer for service not available here. We will perform this tomorrow urgently. Plan going forward is as follows: (1) GI - Resume IV fluid, discontinue bowel regimen. GI ppx. Opiate sparring analgesia. N.p.o. in anticipation of procedure tomorrow. (2) SURGERY - Continue daily dressing changes to the patient's historic ileostomy site (3) Renal/Lytes - continue IVF. Renal indices within normal limits. Replete lites for hypokalemia. (4) Respiratory - O2 as necessary. Continue IS. (5) Heme - STOPPED heparin infusion without bolus over concern for acute blood loss anemia. Serial H&H's. Previously transfused 2unit pRBC. Transfuse venofer over 5 days completed. H&H stable thus far. (6) Cardiovascular - HD acceptable. Continue telemetry. Concern for non-STEMI. Echo with no wall motion abnormality. (7) Neuro - Opiate sparring analgesia. (8) Immune/Infectious Disease - Continue vancomycin for C. difficile colitis. Persistent leukocytosis. Large abdominal fluid collection concerning for abscess. Resume antibiotics broad-spectrum. Transfer for interventional radiology at [facility]. Upon return we will continue IV antibiotics and decide on appropriate regimen. (9) PT/OT
--- NOTE | 2020-11-20 15:10 | CT Report ---
PROCEDURE: Abdomen/Pelvis W INDICATIONS: leukocytosis, recent stoma reversal CONTRAST: IV CONTRAST: Isovue 300 ml: 100 PO CONTRAST: Isovue 300 ml50 TECHNIQUE: After the administration of nonionic intravenous and also rectal contrast, 5 mm thick sections acquir ed from the diaphragms to the symphysis. 5 mm thick coronal and sagittal reformats were acquired. F or radiation dose reduction, the following was used: automated exposure control, adjustment of mA an d/or kV according to patient size. COMPARISON: Prior CT abdomen/pelvis 09/30/2020. FINDINGS: Image quality: Excellent. ABDOMEN: Lung bases: Lung bases are atelectatic on the right, associated with a right posterior pleural effus ion. The pleural effusion is small.. Heart size is normal. Solid organs: Liver and spleen are normal in size and enhancement. Gallbladder does not contain gal lstones and appears partially contracted Biliary system is non dilated. Pancreas enhances normally. No adrenal nodules. Kidneys demonstrate normal size and enhancement, without hydronephrosis. Peritoneum and bowel: Bowel loops demonstrate normal wall thickness and caliber. Rectal contrast was administered and traverses cephalad, rightward and inferiorly allowing visualization of the exact co urse of the entire colon. At the subhepatic space and extending inferiorly along the right paracolic gutter there is a large air-fluid level, abutting the undersurface of the liver and extending deep in to the pelvis, crossing the midline to the anterolateral left hemipelvis. In this area of the air-flu id level occupying approximately two thirds of the transverse dimension of the pelvis measures up to 14.4 x 12.1 cm. At the right lower quadrant this air-fluid level measures up to 9.6 cm transverse and 14.6 cm AP. At the subhepatic space the dimensions of this air-fluid level are up to 20.1 cm AP and 8.0 cm transverse. The overall craniocaudad dimension is 31.3 cm. Nodes and vessels: No retroperitoneal or mesenteric adenopathy by size criteria. Aorta and inferior vena cava are normal in size. Miscellaneous: No ventral hernias. PELVIS: Genitourinary: Bladder wall thickness is normal. Miscellaneous: No inguinal hernias or adenopathy. Large pelvic abscess cavity as discussed above co ntiguous with the middle and upper thirds of the abdominal course of this large air-fluid level. Bones: No suspicious bony lesions. No vertebral body compression fractures. IMPRESSION: Rectal contrast allows visualization of the entire course of the colon. To the right of the colon from the subhepatic space inferiorly into the lower third of the pelvis there is a large pr esumed abscess with air-fluid level, measuring up to 31.3 cm craniocaudad. Presumed bowel leak in thi s clinical circumstance of recent stoma reversal. Small right pleural effusion, adjacent lung base atelectasis. This information was immediately called to the ordering health care provider. His main medical assistant ob gyn was reached and the findings were discussed in detail with her. She will contact him with this informatio n. Surgical intervention is anticipated and this was clearly explained. Reviewed by: Dev Mcmanus MD on 11/20/2020 3:09 PM PDT Approved by: Dev Mcmanus MD on 11/20/2020 3:09 PM PDT Station ID: [id number]
[2020-11-20] MEDS ORDERED: IOPAMIDOL-300 100 ML VIAL IVP ONE (15:20)
[2020-11-20] MEDS ORDERED: IOPAMIDOL-300 50 ML VIAL PO ONE (15:20)
[2020-11-20] MEDS: ONDANSETRON 4 MG/2 ML VIAL IVP PRN ×2 (16:26→22:42)
[2020-11-21] MEDS: METOCLOPRAMIDE 10 MG/2 ML VIAL IVP SCH ×5 (00:22→23:49)
[2020-11-21] MEDS: methocarbamoL 500 MG TABLET PO SCH ×5 (00:26→23:49)
[2020-11-21] MEDS: SODIUM CHLORIDE FLUSH 0.9% 10 ML SYRINGE IVP SCH ×4 (05:09→23:50)
[2020-11-21 05:21] LABS: BASOPHILS % (AUTO) 0.3 %; EOSINOPHILS % (AUTO) 0.1 %; HCT - HEMATOCRIT 27.6 % (42.0-52.0); HGB - HEMOGLOBIN 9.1 g/dL (14.0-18.0); LYMPHOCYTES % (AUTO) 3.6 %; MEAN CORPUSCULAR HEMOGLOBIN 29.3 pg (27.0-31.0); MEAN CORPUSCULAR VOLUME 88.7 fL (80.0-94.0); MEAN PLATELET VOLUME 10.2 fL (7.4-11.4); MONOCYTES % (AUTO) 5.2 %; NEUTROPHILS % (AUTO) 87.6 %; PLT - PLATELET COUNT 501 10^3/uL (130-450); RED BLOOD COUNT 3.11 10^6/uL (4.70-6.10); RED CELL DISTRIBUTION WIDTH 14.6 % (12.0-15.0)
[2020-11-21 05:24] LABS: CALCIUM 8.4 mg/dL (8.5-10.3); CREATININE 0.8 mg/dL (0.6-1.2); MAGNESIUM 2.4 mg/dL (1.7-2.8); POTASSIUM 2.8 mmol/L (3.5-5.0)
[2020-11-21 05:36] LABS: WHITE BLOOD COUNT 37.9 x10^3/uL (4.8-10.8)
[2020-11-21 05:37] LABS: ABNORMAL LYMPHS % (MANUAL) 0 %; BAND NEUTROPHILS % (MANUAL) 0 %
[2020-11-21 05:49] LABS: DIFFERENTIAL COMMENT MANUAL DIFFERENTIAL; LYMPHOCYTES # (MANUAL) 1.1 10^3/uL (1.5-3.5); LYMPHOCYTES % (MANUAL) 3 %; MONOCYTES # (MANUAL) 1.1 10^3/uL (0.0-1.0); NEUTROPHILS # (MANUAL) 35.6 10^3/uL (1.5-6.6); PLATELET ESTIMATE, MANUAL INCREASED (>450,000) (NORMAL); RBC MORPHOLOGY (MULTIPLE) NORMAL APPEARANCE (NORMAL)
[2020-11-21] MEDS: D5NS W/20 MEQ KCL 1,000 ML IV SCH ×2 (06:50→18:15)
--- NOTE | 2020-11-21 07:32 | PROVIDER PROGRESS NOTE ---
Assessment/Plan - Problem List (1) Sepsis Assessment/Plan: WBC increased from 32.1 to 37.9 Likely 2/2 C. diff infection and large intraabdominal abscess Per CT of the abdomen/pelvis done today 11/20/20 there is a large presumed abscess with air-fluid levels measuring up to 31.3 cm craniocaudad. This is presumed bowel leak and the clinical circumstance of recent stoma reversal. Blood cultures growing gram positive cocci Patient on vancomycin 500mg po qid for C. diff. Flagyl discontinued. Vancomycin IV and Zosyn also ordered Patient transferred to [facility] for a drainage tube placement for the abscess He will return to [facility] later this afternoon on 11/21/[address] [facility] around 6:30pm 2 drainage tubes are in place draining dark greenish-brown mal-odorous liquid. It was reported that 2.5L of the above content was collected shortly after placement of tubes Patient is alert awake and oriented X3. He reports breathing better and feeling better. He has hiccup. Requested something to drink SBP was 120 P102, Temp 38 Fluconazole IV was also ordered in addition to the antibiotics above. Patient was administered 1L bolus of normal saline. He will then continue receiving D5NS at 75ml CBC, CMP, lactic acid labs are pending (2) Intra-abdominal abscess Assessment/Plan: Per CT of the abdomen/pelvis done today 11/20/20 there is a large presumed abscess with air-fluid levels measuring up to 31.3 cm craniocaudad. This is presumed bowel leak and the clinical circumstance of recent stoma reversal. Blood cultures growing gram positive cocci Vancomycin IV and Zosyn ordered Patient transferred to [facility] for a drainage tube placement for the abscess He will return to [facility] later this afternoon on 11/21/20 (3) Status post reversal of ileostomy Assessment/Plan: Post op day 8. Patient having a drainage tube placed today 11/21/20 for an intra abdominal abscess from a presumed bowel leak. Managed by general surgery (4) C. difficile diarrhea Assessment/Plan: On vancomycin 500mg qid day #4 Flagyl discontinued (5) Postoperative anemia Assessment/Plan: Stable. Hgb 9.1. No bleeding. Continue to monitor. (6) Hypertension Assessment/Plan: Will hold of on antihypertensive meds for now while treating sepsis. (7) Demand ischemia Assessment/Plan: Resolved with IV hydration (8) Hypokalemia Assessment/Plan: Potassium today was 2.9. Due to diarrhea from C. diff. Will replace and recheck. - Current Meds Current Meds: Current Medications Generic Name Dose Route Start Last Admin Trade Name Freq PRN Reason Stop Dose Admin Acetaminophen 500 mg 11/15/20 17:20 11/20/20 13:05 Acetaminophen 500 Mg Tablet PO 500 mg Q4HR PRN Administration Pain or Fever > 38C (100.4F) Amlodipine Besylate 5 mg 11/15/20 16:16 11/20/20 08:58 Amlodipine 5 Mg Tablet PO 5 mg DAILY ASHWIN Administration Heparin Sodium (Porcine) 5,000 unit 11/19/20 21:00 11/20/20 21:03 Heparin 5,000 Unit/Ml Vial SUBQ Not Given BID ASHWIN Potassium Chloride/Dextrose/Sod Cl 1,000 mls @ 75 mls/hr 11/19/20 19:40 11/21/20 06:50 D5ns W/20 Meq Kcl IV 75 mls/hr .[id number] ASHWIN Administration Methocarbamol 500 mg 11/12/20 18:00 11/21/20 05:09 Methocarbamol 500 Mg Tablet PO Not Given Q6HR ASHWIN Metoclopramide HCl 10 mg 11/19/20 20:00 11/21/20 05:09 Metoclopramide 10 Mg/2 Ml Vial IVP 10 mg Q6HR ASHWIN Administration Mineral Oil 1 applic 11/16/20 16:23 11/16/20 20:52 Min Oil/Dimethicon/Coconut Oil 92 Gm Tube TOP 1 applic PRN PRN Administration Skin Care Ondansetron HCl 4 mg 11/12/20 17:01 11/20/20 22:42 Ondansetron 4 Mg/2 Ml Vial IVP 4 mg Q6HR PRN Administration Nausea / Vomiting Oxycodone HCl 5 mg 11/16/20 11:35 11/19/20 06:30 Oxycodone 5 Mg Tablet PO 5 mg Q4HR PRN Administration PAIN Pregabalin 100 mg 11/12/20 21:00 11/20/20 21:03 Pregabalin 100 Mg Capsule PO Not Given BID ASHWIN Saccharomyces Boulardii 500 mg 11/20/20 17:00 11/20/20 18:29 Saccharomyces Boulardii 250 Mg Capsule PO 500 mg BIDWM ASHWIN Administration Simethicone 80 mg 11/19/20 20:00 11/20/20 21:03 Simethicone Chew 80 Mg Tablet PO Not Given 0900,1300,1800,2100 ASHWIN Sodium Chloride 10 ml 11/13/20 09:00 11/21/20 05:09 Sodium Chloride Flush 0.9% 10 Ml Syringe IVP Not Given 0100,0900,1700 ASHWIN Sodium Chloride 10 ml 11/13/20 01:35 11/20/20 13:05 Sodium Chloride Flush 0.9% 10 Ml Syringe IVP 10 ml PRN PRN Administration NEEDED PER PROVIDER ORDERS Sodium Chloride 20 ml 11/13/20 04:04 11/14/20 06:17 Sodium Chloride Flush 0.9% 10 Ml Syringe IVP 20 ml PRN PRN Administration After Blood Draw Tramadol HCl 50 mg 11/19/20 19:39 11/19/20 20:17 Tramadol 50 Mg Tablet PO 50 mg Q4HR PRN Administration PAIN Vancomycin HCl 500 mg 11/17/20 21:00 11/20/20 21:03 Vancomycin 125 Mg Capsule PO 11/28/20 23:59 Not Given QID ASHWIN - Lab Result Fish Bone Diagrams: 11/22/20 05:30 11/22/20 05:30 - Additional Planning My Orders: My Active Orders 11/20/20 08:08 CULTURE, BLOOD #1 [RM] Routine 11/20/20 08:26 CULTURE, BLOOD #2 [RM] Routine 11/20/20 17:00 Saccharomyces Boulardii [Florastor] 500 mg PO BIDWM Subjective - Subjective Patient Reports: Other (Patient reports 4/10 abdominal pain. He has been having diarrhea through out the night. Denied dyspnea, chest pain, nausea and vomiting. Mildly tachycardic) Objective Vital Signs: Vital Signs - 24 hr 11/20/20 11/20/20 11/20/20 07:51 12:55 14:07 Temperature 37.6 C 38.2 C H 37.7 C Heart Rate [ 108 H 107 H Brachial] Respiratory 24 20 Rate Blood Pressure 132/83 H 117/74 [Left Brachial artery] O2 Saturation 92 97 11/20/20 11/20/20 11/21/20 15:58 23:29 07:29 Temperature 36.8 C 37.7 C 37.3 C Heart Rate [ 98 103 H 104 H Brachial] Respiratory 24 20 20 Rate Blood Pressure 120/68 130/77 119/76 [Left Brachial artery] O2 Saturation 96 92 94 Oxygen O2 Source Room air I&O (Last 24 Hrs): Intake and Output Totals x24h 11/19/20 11/20/20 11/21/20 23:59 23:59 23:59 Intake Total 1642 1689.583 921.25 Output Total 1600 1745 300 Balance 42 -55.417 621.25 General: Alert, Oriented x3, Mild distress (abdominal pain) HEENT: PERRLA, EOMI Neck: Supple, No JVD Neuro: Alert, Non Focal, Oriented Times 3 Cardiovascular: Other (tachycardic) Respiratory: Chest non-tender, No respiratory distress Abdomen: Normal bowel sounds, Other (bloated. Mild tenderness to palapation) Extremities: No clubbing, No edema Skin: No rashes - Results Results: Laboratory Results WBC 37.9 x10^3/uL (4.8-10.8) H* 11/21/20 04:40 RBC 3.11 10^6/uL (4.70-6.10) L 11/21/20 04:40 Hgb 9.1 g/dL (14.0-18.0) L 11/21/20 04:40 Hct 27.6 % (42.0-52.0) L 11/21/20 04:40 MCV 88.7 fL (80.0-94.0) 11/21/20 04:40 MCH 29.3 pg (27.0-31.0) 11/21/20 04:40 MCHC 33.0 g/dL (32.0-36.0) 11/21/20 04:40 RDW 14.6 % (12.0-15.0) 11/21/20 04:40 Plt Count 501 10^3/uL (130-450) H 11/21/20 04:40 MPV 10.2 fL (7.4-11.4) 11/21/20 04:40 Neut # (Auto) Not Reportable 11/21/20 04:40 Lymph # (Auto) Not Reportable 11/21/20 04:40 [place] # (Auto) Not Reportable 11/21/20 04:40 Eos # (Auto) Not Reportable 11/21/20 04:40 Baso # (Auto) Not Reportable 11/21/20 04:40 Absolute Nucleated RBC Not Reportable 11/21/20 04:40 Total Counted 100 11/21/20 04:40 Band Neuts % (Manual) 0 % (0-10) 11/21/20 04:40 Abnorm Lymph % (Manual) 0 % 11/21/20 04:40 Myelocytes % 1 % (-0) H 11/14/20 05:25 Nucleated RBC % Not Reportable 11/21/20 04:40 Neutrophils # (Manual) 35.6 10^3/uL (1.5-6.6) H 11/21/20 04:40 Lymphocytes # (Manual) 1.1 10^3/uL (1.5-3.5) L 11/21/20 04:40 Monocytes # (Manual) 1.1 10^3/uL (0.0-1.0) H 11/21/20 04:40 Eosinophils # (Manual) 0.0 10^3/uL (0-0.7) 11/21/20 04:40 Basophils # (Manual) 0.0 10^3/uL (0-0.1) 11/21/20 04:40 Differential Comment MANUAL DIFFERENTIAL 11/21/20 04:40 Manual Slide Review Indicated 11/13/20 14:05 WBC Morphology 1+ TOXIC GRANULATION (NORMAL) 11/20/20 04:20 Platelet Estimate INCREASED (>450,000) (NORMAL) 11/21/20 04:40 Platelet Morphology NORMAL APPEARANCE (NORMAL) 11/19/20 06:15 RBC Morph Micro Appear NORMAL APPEARANCE (NORMAL) 11/21/20 04:40 PT 11.7 secs (9.9-12.6) 11/12/20 09:45 INR 1.0 (0.8-1.2) 11/12/20 09:45 Anti-Xa Level 0.3 U/mL (-0.7) 11/14/20 06:17 Bld Gas Analysis Time 0231 11/13/20 02:20 Sample Site RIGHT RADIAL 11/13/20 02:20 ABG pH 7.29 (7.35-7.45) L 11/13/20 02:20 ABG pCO2 25 mmHg (34-45) L* 11/13/20 02:20 ABG pO2 79 mmHg (80-100) L 11/13/20 02:20 ABG HCO3 11.7 mmol/L (22.0-26.0) L 11/13/20 02:20 ABG Total CO2 12.4 MMOL/L (21.0-29.0) L 11/13/20 02:20 ABG O2 Saturation 95 % (94-98) 11/13/20 02:20 ABG Base Excess -13.2 mmol/L (-2.0-3.0) L 11/13/20 02:20 Jose Test POSITIVE 11/13/20 02:20 Room Air YES 11/13/20 02:20 FiO2 0.21 11/13/20 02:20 Sodium 136 mmol/L (135-145) 11/21/20 04:40 Potassium 2.8 mmol/L (3.5-5.0) L 11/21/20 04:40 Chloride 100 mmol/L (101-111) L 11/21/20 04:40 Carbon Dioxide 23 mmol/L (21-32) 11/21/20 04:40 Anion Gap 13.0 (6-13) 11/21/20 04:40 BUN 23 mg/dL (6-20) H 11/21/20 04:40 Creatinine 0.8 mg/dL (0.6-1.2) 11/21/20 04:40 Estimated GFR (MDRD) 101 (>89) 11/21/20 04:40 Glucose 166 mg/dL (70-100) H 11/21/20 04:40 POC Whole Bld Glucose 119 mg/dL (70 - 100) H 11/17/20 23:45 Lactic Acid 1.2 mmol/L (0.5-2.2) 11/20/20 08:08 Calcium 8.4 mg/dL (8.5-10.3) L 11/21/20 04:40 Phosphorus 2.5 mg/dL (2.5-4.6) 11/19/20 06:15 Magnesium 2.4 mg/dL (1.7-2.8) 11/21/20 04:40 Total Bilirubin 1.3 mg/dL (0.2-1.0) H 11/19/20 06:15 Direct Bilirubin 0.4 mg/dL (0.1-0.5) 11/13/20 00:31 AST 23 IU/L (10-42) 11/19/20 06:15 ALT 20 IU/L (10-60) 11/19/20 06:15 Alkaline Phosphatase 131 IU/L (42-121) H 11/19/20 06:15 Troponin I High Sens 224.9 ng/L (2.3-19.7) H* 11/14/20 08:25 Total Protein 6.1 g/dL (6.7-8.2) L 11/19/20 06:15 Albumin 2.4 g/dL (3.2-5.5) L 11/19/20 06:15 Globulin 3.7 g/dL (2.1-4.2) 11/19/20 06:15 Albumin/Globulin Ratio 0.6 (1.0-2.2) L 11/19/20 06:15 Nasal Screen MRSA (PCR) NEGATIVE (NEGATIVE) 11/13/20 02:00 Stl C. diff Tox B Gene POSITIVE (NEGATIVE) A* 11/17/20 15:30 Blood Type O POSITIVE 11/13/20 00:31 Blood Type Recheck O POSITIVE 11/13/20 01:40 Antibody Screen NEGATIVE 11/13/20 00:31 Crossmatch IS Only See Detail 11/13/20 00:31 - Procedures Procedures: Procedures BYPASS ILEUM TO CUTANEOUS, PERCUTANEOUS ENDOSCOPIC APPROACH (09/13/20) COLONOSCOPY (05/29/13) EXCISION OF RECTUM, OPEN APPROACH (09/13/20) EXCISION OF SIGMOID COLON, OPEN APPROACH (09/13/20) INSERTION OF INFUSION DEV INTO SUP VENA CAVA, PERC APPROACH (09/13/20) INSPECTION OF LOWER INTESTINAL TRACT, ENDO (09/13/20) INTRODUCTION OF NUTRITIONAL INTO CENTRAL VEIN, PERC APPROACH (09/13/20) RELEASE ILEUM, PERCUTANEOUS ENDOSCOPIC APPROACH (09/13/20) RELEASE LEFT LARGE INTESTINE, PERC ENDO APPROACH (09/13/20) Sepsis Event Note (H) - Evaluation Current Stage of Sepsis: Sepsis Possible source of Sepsis: positive: GI tract/intra-abdominal - Sepsis Criteria Sepsis Criteria: Recorded Temperature greater than 38.3C or Less than 36C, Recorded Heart Rate greater than 90 bpm, WBC count greater than 12,000 or less than 4000 ABX Reporting Has patient been on IV antibiotics over the past 48 hours?: Yes
[2020-11-21] MEDS: HEPARIN 5,000 UNIT/ML VIAL SUBQ SCH ×2 (08:48→21:52)
[2020-11-21] MEDS: amLODIPine 5 MG TABLET PO SCH (08:48)
[2020-11-21] MEDS: SACCHAROMYCES BOULARDII 250 MG CAPSULE PO SCH ×2 (08:48→19:37)
[2020-11-21] MEDS: POTASSIUM CHLOR 10 MEQ/100 ML 10 MEQ/100 ML BAG IV SCH ×7 (08:48→21:42)
[2020-11-21] MEDS: SIMETHICONE CHEW 80 MG TABLET PO SCH ×4 (08:49→21:43)
[2020-11-21] MEDS: PREGABALIN 100 MG CAPSULE PO SCH ×2 (08:49→21:43)
[2020-11-21] MEDS: VANCOMYCIN 125 MG CAPSULE PO SCH ×4 (08:49→21:43)
[2020-11-21] MEDS: FLUCONAZOLE 200 MG/100 ML 100 ML IV SCH (10:47)
[2020-11-21] MEDS ORDERED: POTASSIUM CHLOR 10 MEQ/100 ML 10 MEQ/100 ML BAG IV SCH (11:00)
[2020-11-21] MEDS ORDERED: PIPERACILLIN/TAZOBACTAM 3.375 GM in SODIUM CHLORIDE 0.9% MINIBAG 100 ML IV SCH ×3 (11:00→21:00)
[2020-11-21] MEDS ORDERED: POTASSIUM CHLORIDE 20 MEQ/15 ML UDC PO SCH (11:00)
[2020-11-21] MEDS ORDERED: VANCOMYCIN INJ 2 GM in SODIUM CHLORIDE 0.9% 500 ML IV SCH ×2 (11:30→18:00)
[2020-11-21] MEDS ORDERED: SODIUM CHLORIDE 0.9% 1,000 ML IV ONE (17:42)
[2020-11-21] MEDS: ACETAMINOPHEN 500 MG TABLET PO PRN (19:05)
[2020-11-21 19:12] LABS: RED CELL DISTRIBUTION WIDTH 14.7 % (12.0-15.0)
[2020-11-21] MEDS: ONDANSETRON 4 MG/2 ML VIAL IVP PRN (19:13)
[2020-11-21 19:16] LABS: BASOPHILS % (AUTO) 0.4 %; HCT - HEMATOCRIT 27.9 % (42.0-52.0); HGB - HEMOGLOBIN 8.8 g/dL (14.0-18.0); MEAN CORPUSCULAR HEMOGLOBIN 28.5 pg (27.0-31.0); MEAN CORPUSCULAR HGB CONC 31.5 g/dL (32.0-36.0); MEAN CORPUSCULAR VOLUME 90.3 fL (80.0-94.0); MEAN PLATELET VOLUME 10.2 fL (7.4-11.4); MONOCYTES % (AUTO) 4.9 %; PLT - PLATELET COUNT 522 10^3/uL (130-450); RED BLOOD COUNT 3.09 10^6/uL (4.70-6.10); WHITE BLOOD COUNT 31.4 x10^3/uL (4.8-10.8)
[2020-11-21 19:24] LABS: ABNORMAL LYMPHS % (MANUAL) 0 %
[2020-11-21 19:25] LABS: ALBUMIN 2.5 g/dL (3.2-5.5); ALBUMIN/GLOBULIN RATIO 0.6 (1.0-2.2); BILIRUBIN,TOTAL 1.2 mg/dL (0.2-1.0); CALCIUM 8.2 mg/dL (8.5-10.3); POTASSIUM 2.9 mmol/L (3.5-5.0); TOTAL PROTEIN 6.7 g/dL (6.7-8.2)
[2020-11-21 20:09] LABS: BAND NEUTROPHILS % (MANUAL) 4 %; LYMPHOCYTES # (MANUAL) 0.9 10^3/uL (1.5-3.5); LYMPHOCYTES % (MANUAL) 3 %; MONOCYTES # (MANUAL) 1.9 10^3/uL (0.0-1.0); NEUTROPHILS # (MANUAL) 28.6 10^3/uL (1.5-6.6)
[2020-11-21 20:10] LABS: DIFFERENTIAL COMMENT MANUAL DIFFERENTIAL; PLATELET ESTIMATE, MANUAL INCREASED (>450,000) (NORMAL); PLATELET MORPHOLOGY NORMAL APPEARANCE (NORMAL)
[2020-11-21] MEDS: oxyCODONE 5 MG TABLET PO PRN (23:49)
[2020-11-22] MEDS: PIPERACILLIN/TAZOBACTAM 3.375 GM in SODIUM CHLORIDE 0.9% MINIBAG 100 ML IV SCH ×3 (00:29→16:38)
[2020-11-22] MEDS: VANCOMYCIN INJ 1 GM in SODIUM CHLORIDE 0.9% 250 ML IV SCH ×3 (04:52→21:01)
[2020-11-22] MEDS: D5NS W/20 MEQ KCL 1,000 ML IV SCH ×2 (05:19→20:55)
[2020-11-22] MEDS: METOCLOPRAMIDE 10 MG/2 ML VIAL IVP SCH (05:25)
[2020-11-22] MEDS: methocarbamoL 500 MG TABLET PO SCH ×3 (05:28→18:09)
[2020-11-22] MEDS: oxyCODONE 5 MG TABLET PO PRN ×3 (05:30→21:04)
[2020-11-22] MEDS: ACETAMINOPHEN 500 MG TABLET PO PRN ×3 (05:30→21:05)
[2020-11-22 05:35] LABS: BASOPHILS % (AUTO) 0.3 %; EOSINOPHILS % (AUTO) 0.1 %; HCT - HEMATOCRIT 25.8 % (42.0-52.0); HGB - HEMOGLOBIN 8.3 g/dL (14.0-18.0); LYMPHOCYTES % (AUTO) 4.3 %; MEAN CORPUSCULAR HGB CONC 32.2 g/dL (32.0-36.0); MEAN CORPUSCULAR VOLUME 90.2 fL (80.0-94.0); MEAN PLATELET VOLUME 9.9 fL (7.4-11.4); MONOCYTES % (AUTO) 4.2 %; PLT - PLATELET COUNT 506 10^3/uL (130-450); RED BLOOD COUNT 2.86 10^6/uL (4.70-6.10); RED CELL DISTRIBUTION WIDTH 14.8 % (12.0-15.0); WHITE BLOOD COUNT 26.2 x10^3/uL (4.8-10.8)
[2020-11-22 05:39] LABS: ABNORMAL LYMPHS % (MANUAL) 0 %; BAND NEUTROPHILS % (MANUAL) 0 %
[2020-11-22 05:44] LABS: CALCIUM 7.6 mg/dL (8.5-10.3); MAGNESIUM 2.2 mg/dL (1.7-2.8); POTASSIUM 2.8 mmol/L (3.5-5.0)
[2020-11-22 05:55] LABS: LYMPHOCYTES # (MANUAL) 1.3 10^3/uL (1.5-3.5); LYMPHOCYTES % (MANUAL) 5 %; MONOCYTES # (MANUAL) 1.6 10^3/uL (0.0-1.0); NEUTROPHILS # (MANUAL) 23.3 10^3/uL (1.5-6.6); PLATELET ESTIMATE, MANUAL INCREASED (>450,000) (NORMAL); PLATELET MORPHOLOGY NORMAL APPEARANCE (NORMAL); WBC MORPHOLOGY (MULTIPLE) NORMAL APPEARANCE (NORMAL)
[2020-11-22 05:56] LABS: DIFFERENTIAL COMMENT MANUAL DIFFERENTIAL
--- NOTE | 2020-11-22 07:28 | PROVIDER PROGRESS NOTE ---
Assessment/Plan - Problem List (1) Sepsis Assessment/Plan: White blood cell count improved from 37.9 down to 26. Patient has been afebrile since return from [facility] yesterday. Patient is on vancomycin IV and p.o., Zosyn and Diflucan. Floristor was discontinued Blood Cultures repeated today. Drainage tubes in place and draining. Lactic acid was normal. Patient's vitals were stable. Patient receiving IV hydration with D5 plus normal saline +20 mEq of potassium chloride at 75 mils per hour. General surgery following. Overall patient clinical status is improved from yesterday. (2) Intra-abdominal abscess Assessment/Plan: Patient returned from [facility] around 6:30pm on 11/22/20 2 drainage tubes are in place draining dark greenish-brown mal-odorous liquid. It was reported that 2.5L of the above content was collected shortly after placement of tubes Today drainiage has decreased but still continues. Patient appears clinically better. (3) Status post reversal of ileostomy Assessment/Plan: Post op day 9. Drainage tubes placed yesterday 11/21/20 for an intra abdominal abscess from a presumed bowel leak. Managed by general surgery (4) C. difficile diarrhea Assessment/Plan: On vancomycin 500mg qid day #5 Flagyl discontinued yesterday Frequency of stools decreased. (5) Postoperative anemia Assessment/Plan: Stable. Hgb 8.3. No bleeding. Continue to monitor. (6) Hypertension Assessment/Plan: Will hold of on antihypertensive meds for now while treating sepsis. (7) Demand ischemia Assessment/Plan: Resolved with IV hydration (8) Hypokalemia Assessment/Plan: Potassium today was 2.9. Due to diarrhea from C. diff. Will replace and recheck. - Current Meds Current Meds: Current Medications Generic Name Dose Route Start Last Admin Trade Name Freq PRN Reason Stop Dose Admin Acetaminophen 500 mg 11/15/20 17:20 11/22/20 05:30 Acetaminophen 500 Mg Tablet PO 500 mg Q4HR PRN Administration Pain or Fever > 38C (100.4F) Amlodipine Besylate 5 mg 11/15/20 16:16 11/21/20 08:48 Amlodipine 5 Mg Tablet PO Not Given DAILY ASHWIN Heparin Sodium (Porcine) 5,000 unit 11/19/20 21:00 11/21/20 21:52 Heparin 5,000 Unit/Ml Vial SUBQ 5,000 unit BID ASHWIN Administration Potassium Chloride/Dextrose/Sod Cl 1,000 mls @ 75 mls/hr 11/19/20 19:40 11/22/20 05:19 D5ns W/20 Meq Kcl IV 75 mls/hr .[id number] ASHWIN Administration Fluconazole 100 mls @ 100 mls/hr 11/21/20 11:00 11/21/20 10:47 Diflucan 200 Mg/100 Ml IV Not Given DAILY ASHWIN Piperacillin Sod/Tazobactam 100 mls @ 25 mls/hr 11/22/20 01:00 11/22/20 05:02 Sod 3.375 gm/ Sodium Chloride IV Infused Q8H ASHWIN Infusion Vancomycin HCl 1 gm/ Sodium 250 mls @ 167 mls/hr 11/22/20 05:00 11/22/20 06:26 Chloride IV Infused Q8H ASHWIN Infusion Methocarbamol 500 mg 11/12/20 18:00 11/22/20 05:28 Methocarbamol 500 Mg Tablet PO 500 mg Q6HR ASHWIN Administration Metoclopramide HCl 10 mg 11/19/20 20:00 11/22/20 05:25 Metoclopramide 10 Mg/2 Ml Vial IVP 10 mg Q6HR ASHWIN Administration Mineral Oil 1 applic 11/16/20 16:23 11/16/20 20:52 Min Oil/Dimethicon/Coconut Oil 92 Gm Tube TOP 1 applic PRN PRN Administration Skin Care Ondansetron HCl 4 mg 11/12/20 17:01 11/21/20 19:13 Ondansetron 4 Mg/2 Ml Vial IVP 4 mg Q6HR PRN Administration Nausea / Vomiting Oxycodone HCl 5 mg 11/16/20 11:35 11/22/20 05:30 Oxycodone 5 Mg Tablet PO 5 mg Q4HR PRN Administration PAIN Pregabalin 100 mg 11/12/20 21:00 11/21/20 21:43 Pregabalin 100 Mg Capsule PO 100 mg BID ASHWIN Administration Saccharomyces Boulardii 500 mg 11/20/20 17:00 11/21/20 19:37 Saccharomyces Boulardii 250 Mg Capsule PO 500 mg BIDWM ASHWIN Administration Simethicone 80 mg 11/19/20 20:00 11/21/20 21:43 Simethicone Chew 80 Mg Tablet PO 80 mg 0900,1300,1800,2100 ASHWIN Administration Sodium Chloride 10 ml 11/13/20 09:00 11/21/20 23:50 Sodium Chloride Flush 0.9% 10 Ml Syringe IVP 10 ml 0100,0900,1700 ASHWIN Administration Sodium Chloride 10 ml 11/13/20 01:35 11/20/20 13:05 Sodium Chloride Flush 0.9% 10 Ml Syringe IVP 10 ml PRN PRN Administration NEEDED PER PROVIDER ORDERS Sodium Chloride 20 ml 11/13/20 04:04 11/14/20 06:17 Sodium Chloride Flush 0.9% 10 Ml Syringe IVP 20 ml PRN PRN Administration After Blood Draw Tramadol HCl 50 mg 11/19/20 19:39 11/19/20 20:17 Tramadol 50 Mg Tablet PO 50 mg Q4HR PRN Administration PAIN Vancomycin HCl 500 mg 11/17/20 21:00 11/21/20 21:43 Vancomycin 125 Mg Capsule PO 11/28/20 23:59 500 mg QID ASHWIN Administration - Lab Result Fish Bone Diagrams: 11/22/20 05:30 11/22/20 05:30 - Additional Planning My Orders: My Active Orders 11/22/20 Breakfast Clear Liquid Diet [DIET] 11/22/20 08:00 Potassium Chloride/Water 10 mEq/100 mL q1h (Enter # of bags) Potassium Chlor 10 Meq/100 ml [Potassium Chloride] 10 meq in 100 ml IV Q1H Subjective - Subjective Patient Reports: Other (Patient reports feeling much better today. He was able to get a better night sleep as a result. Frequency of stools decreased. He has been afebrile sice return from [facility]. Decreased output in drainage tubes. Tolerating clear liquids well.) Objective Vital Signs: Vital Signs - 24 hr 11/21/20 11/21/20 11/21/20 07:29 18:45 21:49 Temperature 37.3 C 38 C H 36.7 C Heart Rate [ 104 H 102 H Brachial] Respiratory 20 20 Rate Blood Pressure 119/76 [Left Brachial artery] Blood Pressure 121/72 [Right Brachial artery] O2 Saturation 94 93 11/21/20 23:50 Temperature 37.7 C Heart Rate [ 108 H Brachial] Respiratory 20 Rate Blood Pressure [Left Brachial artery] Blood Pressure 131/75 H [Right Brachial artery] O2 Saturation 93 Oxygen O2 Source Room air I&O (Last 24 Hrs): Intake and Output Totals x24h 11/20/20 11/21/20 11/22/20 23:59 23:59 23:59 Intake Total 9668.952 6619.333 1130 Output Total 1745 2070 475 Balance -55.417 1449.333 655 General: Alert, Oriented x3, Mild distress HEENT: PERRLA, EOMI Neck: Supple, No JVD Neuro: Alert, Non Focal, Oriented Times 3 Cardiovascular: Regular rate, Normal S1, Normal S2 Respiratory: Chest non-tender, No respiratory distress, Breath sounds nml Abdomen: Normal bowel sounds, Soft, Other (surgical site appreciable and unremarkable. Drainage tubes in place and draining) Extremities: No clubbing, No cyanosis, No edema Skin: No rashes, No breakdown - Results Results: Laboratory Results WBC 26.2 x10^3/uL (4.8-10.8) H 11/22/20 05:30 RBC 2.86 10^6/uL (4.70-6.10) L 11/22/20 05:30 Hgb 8.3 g/dL (14.0-18.0) L 11/22/20 05:30 Hct 25.8 % (42.0-52.0) L 11/22/20 05:30 MCV 90.2 fL (80.0-94.0) 11/22/20 05:30 MCH 29.0 pg (27.0-31.0) 11/22/20 05:30 MCHC 32.2 g/dL (32.0-36.0) 11/22/20 05:30 RDW 14.8 % (12.0-15.0) 11/22/20 05:30 Plt Count 506 10^3/uL (130-450) H 11/22/20 05:30 MPV 9.9 fL (7.4-11.4) 11/22/20 05:30 Neut # (Auto) Not Reportable 11/22/20 05:30 Lymph # (Auto) Not Reportable 11/22/20 05:30 [place] # (Auto) Not Reportable 11/22/20 05:30 Eos # (Auto) Not Reportable 11/22/20 05:30 Baso # (Auto) Not Reportable 11/22/20 05:30 Absolute Nucleated RBC Not Reportable 11/22/20 05:30 Total Counted 100 11/22/20 05:30 Band Neuts % (Manual) 0 % (0-10) 11/22/20 05:30 Abnorm Lymph % (Manual) 0 % 11/22/20 05:30 Myelocytes % 1 % (-0) H 11/14/20 05:25 Nucleated RBC % Not Reportable 11/22/20 05:30 Neutrophils # (Manual) 23.3 10^3/uL (1.5-6.6) H 11/22/20 05:30 Lymphocytes # (Manual) 1.3 10^3/uL (1.5-3.5) L 11/22/20 05:30 Monocytes # (Manual) 1.6 10^3/uL (0.0-1.0) H 11/22/20 05:30 Eosinophils # (Manual) 0.0 10^3/uL (0-0.7) 11/22/20 05:30 Basophils # (Manual) 0.0 10^3/uL (0-0.1) 11/22/20 05:30 Differential Comment MANUAL DIFFERENTIAL 11/22/20 05:30 Manual Slide Review Indicated 11/13/20 14:05 WBC Morphology NORMAL APPEARANCE (NORMAL) 11/22/20 05:30 Platelet Estimate INCREASED (>450,000) (NORMAL) 11/22/20 05:30 Platelet Morphology NORMAL APPEARANCE (NORMAL) 11/22/20 05:30 RBC Morph Micro Appear 1+ HYPOCHROMASIA (NORMAL) 1+ POLYCHROMASIA (NORMAL) 1+ TARGET CELLS (NORMAL) 11/22/20 05:30 RBC Morph Micro Appear 1+ HYPOCHROMASIA (NORMAL) 1+ POLYCHROMASIA (NORMAL) 1+ TARGET CELLS (NORMAL) 11/22/20 05:30 RBC Morph Micro Appear 1+ HYPOCHROMASIA (NORMAL) 1+ POLYCHROMASIA (NORMAL) 1+ TARGET CELLS (NORMAL) 11/22/20 05:30 PT 11.7 secs (9.9-12.6) 11/12/20 09:45 INR 1.0 (0.8-1.2) 11/12/20 09:45 Anti-Xa Level 0.3 U/mL (-0.7) 11/14/20 06:17 Bld Gas Analysis Time 0231 11/13/20 02:20 Sample Site RIGHT RADIAL 11/13/20 02:20 ABG pH 7.29 (7.35-7.45) L 11/13/20 02:20 ABG pCO2 25 mmHg (34-45) L* 11/13/20 02:20 ABG pO2 79 mmHg (80-100) L 11/13/20 02:20 ABG HCO3 11.7 mmol/L (22.0-26.0) L 11/13/20 02:20 ABG Total CO2 12.4 MMOL/L (21.0-29.0) L 11/13/20 02:20 ABG O2 Saturation 95 % (94-98) 11/13/20 02:20 ABG Base Excess -13.2 mmol/L (-2.0-3.0) L 11/13/20 02:20 Jose Test POSITIVE 11/13/20 02:20 Room Air YES 11/13/20 02:20 FiO2 0.21 11/13/20 02:20 Sodium 135 mmol/L (135-145) 11/22/20 05:30 Potassium 2.8 mmol/L (3.5-5.0) L 11/22/20 05:30 Chloride 104 mmol/L (101-111) 11/22/20 05:30 Carbon Dioxide 20 mmol/L (21-32) L 11/22/20 05:30 Anion Gap 11.0 (6-13) 11/22/20 05:30 BUN 21 mg/dL (6-20) H 11/22/20 05:30 Creatinine 1.0 mg/dL (0.6-1.2) 11/22/20 05:30 Estimated GFR (MDRD) 78 (>89) L 11/22/20 05:30 Glucose 164 mg/dL (70-100) H 11/22/20 05:30 POC Whole Bld Glucose 119 mg/dL (70 - 100) H 11/17/20 23:45 Lactic Acid 1.2 mmol/L (0.5-2.2) 11/21/20 19:04 Calcium 7.6 mg/dL (8.5-10.3) L 11/22/20 05:30 Phosphorus 2.5 mg/dL (2.5-4.6) 11/19/20 06:15 Magnesium 2.2 mg/dL (1.7-2.8) 11/22/20 05:30 Total Bilirubin 1.2 mg/dL (0.2-1.0) H 11/21/20 19:04 Direct Bilirubin 0.4 mg/dL (0.1-0.5) 11/13/20 00:31 AST 28 IU/L (10-42) 11/21/20 19:04 ALT 30 IU/L (10-60) 11/21/20 19:04 Alkaline Phosphatase 121 IU/L (42-121) 11/21/20 19:04 Troponin I High Sens 224.9 ng/L (2.3-19.7) H* 11/14/20 08:25 Total Protein 6.7 g/dL (6.7-8.2) 11/21/20 19:04 Albumin 2.5 g/dL (3.2-5.5) L 11/21/20 19:04 Globulin 4.2 g/dL (2.1-4.2) 11/21/20 19:04 Albumin/Globulin Ratio 0.6 (1.0-2.2) L 11/21/20 19:04 Nasal Screen MRSA (PCR) NEGATIVE (NEGATIVE) 11/13/20 02:00 Stl C. diff Tox B Gene POSITIVE (NEGATIVE) A* 11/17/20 15:30 Blood Type O POSITIVE 11/13/20 00:31 Blood Type Recheck O POSITIVE 11/13/20 01:40 Antibody Screen NEGATIVE 11/13/20 00:31 Crossmatch IS Only See Detail 11/13/20 00:31 - Procedures Procedures: Procedures BYPASS ILEUM TO CUTANEOUS, PERCUTANEOUS ENDOSCOPIC APPROACH (09/13/20) COLONOSCOPY (05/29/13) EXCISION OF RECTUM, OPEN APPROACH (09/13/20) EXCISION OF SIGMOID COLON, OPEN APPROACH (09/13/20) INSERTION OF INFUSION DEV INTO SUP VENA CAVA, PERC APPROACH (09/13/20) INSPECTION OF LOWER INTESTINAL TRACT, ENDO (09/13/20) INTRODUCTION OF NUTRITIONAL INTO CENTRAL VEIN, PERC APPROACH (09/13/20) RELEASE ILEUM, PERCUTANEOUS ENDOSCOPIC APPROACH (09/13/20) RELEASE LEFT LARGE INTESTINE, PERC ENDO APPROACH (09/13/20) Sepsis Event Note (H) - Evaluation Current Stage of Sepsis: Sepsis Possible source of Sepsis: positive: GI tract/intra-abdominal - Sepsis Criteria Sepsis Criteria: Recorded Temperature greater than 38.3C or Less than 36C, Recorded Heart Rate greater than 90 bpm, WBC count greater than 12,000 or less than 4000 ABX Reporting Has patient been on IV antibiotics over the past 48 hours?: Yes
[2020-11-22] MEDS: POTASSIUM CHLOR 10 MEQ/100 ML 10 MEQ/100 ML BAG IV SCH ×4 (08:36→12:42)
[2020-11-22] MEDS: FLUCONAZOLE 200 MG/100 ML 100 ML IV SCH (08:42)
[2020-11-22] MEDS: SACCHAROMYCES BOULARDII 250 MG CAPSULE PO SCH (08:47)
[2020-11-22] MEDS: amLODIPine 5 MG TABLET PO SCH (08:47)
[2020-11-22] MEDS: VANCOMYCIN 125 MG CAPSULE PO SCH ×4 (08:50→21:03)
[2020-11-22] MEDS: PREGABALIN 100 MG CAPSULE PO SCH ×2 (08:50→21:02)
[2020-11-22] MEDS: HEPARIN 5,000 UNIT/ML VIAL SUBQ SCH ×2 (08:51→20:58)
[2020-11-22] MEDS: SODIUM CHLORIDE FLUSH 0.9% 10 ML SYRINGE IVP SCH ×2 (08:52→16:38)
[2020-11-22] MEDS: SIMETHICONE CHEW 80 MG TABLET PO SCH ×4 (08:52→21:02)
--- NOTE | 2020-11-22 13:19 | PROVIDER PROGRESS NOTE ---
Progress Note Subjective Status post CT angio of the chest and CT of the abdomen. Please see EMR for results however patient without any evidence of pulmonary embolism or acute pulmonary process. There was indeed a large air-fluid collection within the abdomen consistent with abscess. Status post special procedure/interventional radiographic placement of percutaneous drain x2 with large decompression 2.5 L seropurulent drainage. Diagnosed with C. difficile colitis. Denies chest pain/sob. Voiding spontaneously. Pre-Op Diagnosis: H/O LAR for complicated diverticulitis; distal ileal perf on enterosscopy Procedure Performed: 1. Mini laparotomy 2. Diagnostic laparoscopy 3. Ileostomy reversal and small bowel resection 4. Abdominal washout 5. Drain placement 6. Extensive adhesiolysis including right colonic mobilization Post Op Diagnosis: Same; terminal ileal stricturing; right pelvic side wall adhesions Objective Afebrile, hemodynamically acceptable General Appearance: positive: No acute distress Eyes Bilateral: positive: Normal inspection ENT: positive: ENT inspection nml Neck: positive: Nml inspection Respiratory: positive: Chest non-tender, No respiratory distress, Breath sounds nml. negative: Wheezes, Rales, Rhonchi Cardiovascular: positive: Regular rate & rhythm Extremities: positive: Non-tender, Full ROM, Nml appearance Neurologic/Psychiatric: positive: Oriented x3, CN's nml (2-12) Abdomen much softer, far less distended, appropriately tender, no rebound no guarding. Historic ileostomy site packing change. Impression/Plan Postoperative day #10 currently with improved leukocytosis, resolving C diff colitis with no significant inflammatory changes noted on imaging, with immediate post operative elevated troponin, tachycardia, lactic acidosis, as well as syncopal episode on postoperative day #0. EKG has been without any significant changes. He has had no chest pain and no dyspnea. His echocardiography was without any significant wall motion abnormality. Extensive work-up which revealed elevated troponins. Appreciate hospitalist consultation and input on this patient He was started on a heparin drip including aspirin. Suspected demand ischemia, no EKG changes. Anemia stable, however discontinued the Hep gtt. Continues with loose stooling from C. difficile colitis. Negative for pulmonary embolism by CT angio. CT abdomen reveals large intra- abdominal abscess. Air-fluid level. Status post CT-guided percutaneous interventional radiology Drainage catheter placement at [facility]. Significantly improved today. Plan going forward is as follows: (1) GI - Resume IV fluid, discontinue bowel regimen. GI ppx. Opiate sparring analgesia. PPN and advance diet. (2) SURGERY - Continue daily dressing changes to the patient's historic ileostomy site (3) Renal/Lytes - continue IVF. Renal indices within normal limits. Replete lites for hypokalemia. (4) Respiratory - O2 as necessary. Continue IS. (5) Heme - STOPPED heparin infusion without bolus over concern for acute blood loss anemia. Serial H&H's. Previously transfused 2unit pRBC. Transfused venofer over 5 days completed. H&H stable thus far. (6) Cardiovascular - HD acceptable. Continue telemetry. Concern for non-STEMI. Echo with no wall motion abnormality. (7) Neuro - Opiate sparring analgesia. (8) Immune/Infectious Disease - Continue vancomycin for C. difficile colitis. Persistent leukocytosis. Large abdominal fluid collection concerning for abscess. Resumed antibiotics broad-spectrum. S/P interventional radiology at [facility]. Will continue IV antibiotics and decide on appropriate regimen. (9) PT/OT
[2020-11-23] MEDS: PIPERACILLIN/TAZOBACTAM 3.375 GM in SODIUM CHLORIDE 0.9% MINIBAG 100 ML IV SCH ×3 (00:41→20:57)
[2020-11-23] MEDS: methocarbamoL 500 MG TABLET PO SCH ×4 (00:41→17:07)
[2020-11-23] MEDS: SODIUM CHLORIDE FLUSH 0.9% 10 ML SYRINGE IVP SCH ×3 (00:42→16:22)
[2020-11-23] MEDS: oxyCODONE 5 MG TABLET PO PRN ×5 (03:41→22:52)
[2020-11-23] MEDS: ACETAMINOPHEN 500 MG TABLET PO PRN ×5 (03:41→22:52)
[2020-11-23] MEDS: VANCOMYCIN INJ 1 GM in SODIUM CHLORIDE 0.9% 250 ML IV SCH (05:19)
[2020-11-23 06:30] LABS: BASOPHILS % (AUTO) 0.2 %; HGB - HEMOGLOBIN 7.7 g/dL (14.0-18.0); MONOCYTES % (AUTO) 4.4 %
[2020-11-23 06:32] LABS: EOSINOPHILS % (AUTO) 0.2 %; HCT - HEMATOCRIT 23.6 % (42.0-52.0); LYMPHOCYTES # (AUTO) 1.5 10^3/uL (1.5-3.5); MEAN CORPUSCULAR HEMOGLOBIN 29.2 pg (27.0-31.0); MEAN CORPUSCULAR HGB CONC 32.6 g/dL (32.0-36.0); MEAN CORPUSCULAR VOLUME 89.4 fL (80.0-94.0); MONOCYTES # (AUTO) 0.8 10^3/uL (0.0-1.0); NEUTROPHILS # (AUTO) 15.5 10^3/uL (1.5-6.6); NEUTROPHILS % (AUTO) 84.7 %; PLT - PLATELET COUNT 505 10^3/uL (130-450); RED BLOOD COUNT 2.64 10^6/uL (4.70-6.10); RED CELL DISTRIBUTION WIDTH 15.1 % (12.0-15.0); WHITE BLOOD COUNT 18.3 x10^3/uL (4.8-10.8)
[2020-11-23 06:37] LABS: CALCIUM 7.6 mg/dL (8.5-10.3); CREATININE 0.8 mg/dL (0.6-1.2); MAGNESIUM 2.1 mg/dL (1.7-2.8); POTASSIUM 2.9 mmol/L (3.5-5.0)
[2020-11-23] MEDS ORDERED: CALCIUM GLUCONATE 2,000 MG in SODIUM CHLORIDE 0.9% 100ML 100 ML IV ONE (07:43)
--- NOTE | 2020-11-23 07:44 | PROVIDER PROGRESS NOTE ---
Assessment/Plan - Problem List (1) Sepsis Assessment/Plan: Patient continues to improve daily. WBC today is 18.3. Which is down from 26.2 Patient is on vancomycin IV and p.o., Zosyn and Diflucan. Floristor was discontinued Blood Cultures repeated yesterday (NGTD). Drainage tubes in place and draining. Lactic acid was normal. Patient's vitals were stable. Patient receiving IV hydration with D5 plus normal saline +20 mEq of potassium chloride at 75 mils per hour. PPN to be initiated today General surgery following. Overall patient's clinical status is improved from yesterday. (2) Intra-abdominal abscess Assessment/Plan: Output from 2 drainage tubes have a dark reddish-brown color. Overall output has decreased but continues. We will continue to monitor. (3) Status post reversal of ileostomy Assessment/Plan: Post op day 10. Drainage tubes placed yesterday 11/21/20 for an intra abdominal abscess from a presumed bowel leak. Managed by general surgery (4) C. difficile diarrhea Assessment/Plan: On vancomycin 500mg qid day #6 Frequency of stools decreased. Diet advanced from clear to full liquid diet. (5) Postoperative anemia Assessment/Plan: Hemoglobin 7.7. We will continue to monitor. (7) Demand ischemia Assessment/Plan: Resolved. (8) Hypokalemia Assessment/Plan: Potassium today was 2.9. Due to diarrhea from C. diff. Will replace and recheck. - Current Meds Current Meds: Current Medications Generic Name Dose Route Start Last Admin Trade Name Freq PRN Reason Stop Dose Admin Acetaminophen 500 mg 11/15/20 17:20 11/23/20 03:41 Acetaminophen 500 Mg Tablet PO 500 mg Q4HR PRN Administration Pain or Fever > 38C (100.4F) Amlodipine Besylate 5 mg 11/15/20 16:16 11/22/20 08:47 Amlodipine 5 Mg Tablet PO 5 mg DAILY ASHWIN Administration Heparin Sodium (Porcine) 5,000 unit 11/19/20 21:00 11/22/20 20:58 Heparin 5,000 Unit/Ml Vial SUBQ 5,000 unit BID ASHWIN Administration Potassium Chloride/Dextrose/Sod Cl 1,000 mls @ 75 mls/hr 11/19/20 19:40 11/23/20 07:03 D5ns W/20 Meq Kcl IV 75 mls/hr .[id number] ASHWIN Infusion Fluconazole 100 mls @ 100 mls/hr 11/21/20 11:00 11/22/20 09:45 Diflucan 200 Mg/100 Ml IV Infused DAILY ASHWIN Infusion Piperacillin Sod/Tazobactam 100 mls @ 25 mls/hr 11/22/20 01:00 11/23/20 04:41 Sod 3.375 gm/ Sodium Chloride IV Infused Q8H ASHWIN Infusion Vancomycin HCl 1 gm/ Sodium 250 mls @ 167 mls/hr 11/22/20 05:00 11/23/20 07:03 Chloride IV Infused Q8H ASHWIN Infusion Methocarbamol 500 mg 11/12/20 18:00 11/23/20 06:35 Methocarbamol 500 Mg Tablet PO 500 mg Q6HR ASHWIN Administration Mineral Oil 1 applic 11/16/20 16:23 11/16/20 20:52 Min Oil/Dimethicon/Coconut Oil 92 Gm Tube TOP 1 applic PRN PRN Administration Skin Care Ondansetron HCl 4 mg 11/12/20 17:01 11/21/20 19:13 Ondansetron 4 Mg/2 Ml Vial IVP 4 mg Q6HR PRN Administration Nausea / Vomiting Oxycodone HCl 5 mg 11/16/20 11:35 11/23/20 03:41 Oxycodone 5 Mg Tablet PO 5 mg Q4HR PRN Administration PAIN Pregabalin 100 mg 11/12/20 21:00 11/22/20 21:02 Pregabalin 100 Mg Capsule PO 100 mg BID ASHWIN Administration Simethicone 80 mg 11/19/20 20:00 11/22/20 21:02 Simethicone Chew 80 Mg Tablet PO 80 mg 0900,1300,1800,2100 ASHWIN Administration Sodium Chloride 10 ml 11/13/20 09:00 11/23/20 00:42 Sodium Chloride Flush 0.9% 10 Ml Syringe IVP 10 ml 0100,0900,1700 ASHWIN Administration Sodium Chloride 10 ml 11/13/20 01:35 11/20/20 13:05 Sodium Chloride Flush 0.9% 10 Ml Syringe IVP 10 ml PRN PRN Administration NEEDED PER PROVIDER ORDERS Sodium Chloride 20 ml 11/13/20 04:04 11/14/20 06:17 Sodium Chloride Flush 0.9% 10 Ml Syringe IVP 20 ml PRN PRN Administration After Blood Draw Tramadol HCl 50 mg 11/19/20 19:39 11/19/20 20:17 Tramadol 50 Mg Tablet PO 50 mg Q4HR PRN Administration PAIN Vancomycin HCl 500 mg 11/17/20 21:00 11/22/20 21:03 Vancomycin 125 Mg Capsule PO 11/28/20 23:59 500 mg QID ASHWIN Administration - Lab Result Fish Bone Diagrams: 11/23/20 06:21 11/23/20 06:21 - Additional Planning My Orders: My Active Orders 11/22/20 09:40 Blood Culture [CULTURE, BLOOD #1] [] Routine 11/22/20 11:00 Blood Culture [CULTURE, BLOOD #2] [] Routine 11/23/20 07:43 Calcium Gluconate/NS 2,000 mg/100 mL x 1 Calcium Gluconate 2,000 mg Sodium Chloride 0.9% 100Ml [Normal Saline 0.9% 100Ml] 100 ml IV ONCE 11/23/20 08:00 Potassium Chloride/Water 10 mEq/100 mL q1h (Enter # of bags) Potassium Chlor 10 Meq/100 ml [Potassium Chloride] 10 meq in 100 ml IV Q1H Subjective - Subjective Patient Reports: Other (Resting comfortably in bed. He denies chest pain, dyspnea, nausea, vomiting, fever or chills. He reports tenderness at the site of insertion of the drainage tubes. The pain is worse when he lays on that side. He has been tolerating a clear liquid diet well. He appears to be in very good spi) Objective Vital Signs: Vital Signs - 24 hr 11/22/20 11/22/20 11/22/20 08:00 16:53 22:53 Temperature 37.4 C 37.4 C 37.1 C Heart Rate [ 91 90 85 Brachial] Respiratory 18 18 18 Rate Blood Pressure 122/68 106/68 110/63 [Left Brachial artery] O2 Saturation 93 94 95 Oxygen O2 Source Room air I&O (Last 24 Hrs): Intake and Output Totals x24h 11/21/20 11/22/20 11/23/20 23:59 23:59 23:59 Intake Total 3519.333 5025 981.25 Output Total 2070 1835 750 Balance 3860.147 7172 231.25 General: Alert, Oriented x3, Mild distress (At point of insetion of drainage tubes) HEENT: Atraumatic, PERRLA, EOMI Neck: Supple, No JVD Neuro: Alert, Non Focal, Oriented Times 3 Cardiovascular: Regular rate, No murmurs Respiratory: Chest non-tender, No respiratory distress, Breath sounds nml Abdomen: Normal bowel sounds, Soft, Other (mild tenderness where tube exits body) Skin: No rashes, No breakdown, No significant lesion - Results Results: Laboratory Results WBC 18.3 x10^3/uL (4.8-10.8) H 11/23/20 06:21 RBC 2.64 10^6/uL (4.70-6.10) L 11/23/20 06:21 Hgb 7.7 g/dL (14.0-18.0) L 11/23/20 06:21 Hct 23.6 % (42.0-52.0) L 11/23/20 06:21 MCV 89.4 fL (80.0-94.0) 11/23/20 06:21 MCH 29.2 pg (27.0-31.0) 11/23/20 06:21 MCHC 32.6 g/dL (32.0-36.0) 11/23/20 06:21 RDW 15.1 % (12.0-15.0) H 11/23/20 06:21 Plt Count 505 10^3/uL (130-450) H 11/23/20 06:21 MPV 10.0 fL (7.4-11.4) 11/23/20 06:21 Neut # (Auto) 15.5 10^3/uL (1.5-6.6) H 11/23/20 06:21 Lymph # (Auto) 1.5 10^3/uL (1.5-3.5) 11/23/20 06:21 [place] # (Auto) 0.8 10^3/uL (0.0-1.0) 11/23/20 06:21 Eos # (Auto) 0.0 10^3/uL (0.0-0.7) 11/23/20 06:21 Baso # (Auto) 0.0 10^3/uL (0.0-0.1) 11/23/20 06:21 Absolute Nucleated RBC 0.00 x10^3/uL 11/23/20 06:21 Total Counted 100 11/22/20 05:30 Band Neuts % (Manual) 0 % (0-10) 11/22/20 05:30 Abnorm Lymph % (Manual) 0 % 11/22/20 05:30 Myelocytes % 1 % (-0) H 11/14/20 05:25 Nucleated RBC % 0.0 /100WBC 11/23/20 06:21 Neutrophils # (Manual) 23.3 10^3/uL (1.5-6.6) H 11/22/20 05:30 Lymphocytes # (Manual) 1.3 10^3/uL (1.5-3.5) L 11/22/20 05:30 Monocytes # (Manual) 1.6 10^3/uL (0.0-1.0) H 11/22/20 05:30 Eosinophils # (Manual) 0.0 10^3/uL (0-0.7) 11/22/20 05:30 Basophils # (Manual) 0.0 10^3/uL (0-0.1) 11/22/20 05:30 Differential Comment MANUAL DIFFERENTIAL 11/22/20 05:30 Manual Slide Review Indicated 11/13/20 14:05 WBC Morphology NORMAL APPEARANCE (NORMAL) 11/22/20 05:30 Platelet Estimate INCREASED (>450,000) (NORMAL) 11/22/20 05:30 Platelet Morphology NORMAL APPEARANCE (NORMAL) 11/22/20 05:30 RBC Morph Micro Appear 1+ HYPOCHROMASIA (NORMAL) 1+ POLYCHROMASIA (NORMAL) 1+ TARGET CELLS (NORMAL) 11/22/20 05:30 RBC Morph Micro Appear 1+ HYPOCHROMASIA (NORMAL) 1+ POLYCHROMASIA (NORMAL) 1+ TARGET CELLS (NORMAL) 11/22/20 05:30 RBC Morph Micro Appear 1+ HYPOCHROMASIA (NORMAL) 1+ POLYCHROMASIA (NORMAL) 1+ TARGET CELLS (NORMAL) 11/22/20 05:30 PT 11.7 secs (9.9-12.6) 11/12/20 09:45 INR 1.0 (0.8-1.2) 11/12/20 09:45 Anti-Xa Level 0.3 U/mL (-0.7) 11/14/20 06:17 Bld Gas Analysis Time 0231 21 02:20 Sample Site RIGHT RADIAL 11/13/20 02:20 ABG pH 7.29 (7.35-7.45) L 11/13/20 02:20 ABG pCO2 25 mmHg (34-45) L* 11/13/20 02:20 ABG pO2 79 mmHg (80-100) L 11/13/20 02:20 ABG HCO3 11.7 mmol/L (22.0-26.0) L 11/13/20 02:20 ABG Total CO2 12.4 MMOL/L (21.0-29.0) L 11/13/20 02:20 ABG O2 Saturation 95 % (94-98) 11/13/20 02:20 ABG Base Excess -13.2 mmol/L (-2.0-3.0) L 11/13/20 02:20 Jsoe Test POSITIVE 11/13/20 02:20 Room Air YES 11/13/20 02:20 FiO2 0.21 11/13/20 02:20 Sodium 134 mmol/L (135-145) L 11/23/20 06:21 Potassium 2.9 mmol/L (3.5-5.0) L 11/23/20 06:21 Chloride 104 mmol/L (101-111) 11/23/20 06:21 Carbon Dioxide 22 mmol/L (21-32) 11/23/20 06:21 Anion Gap 8.0 (6-13) 11/23/20 06:21 BUN 13 mg/dL (6-20) 11/23/20 06:21 Creatinine 0.8 mg/dL (0.6-1.2) 11/23/20 06:21 Estimated GFR (MDRD) 101 (>89) 11/23/20 06:21 Glucose 132 mg/dL (70-100) H 11/23/20 06:21 POC Whole Bld Glucose 119 mg/dL (70 - 100) H 11/17/20 23:45 Lactic Acid 1.2 mmol/L (0.5-2.2) 11/21/20 19:04 Calcium 7.6 mg/dL (8.5-10.3) L 11/23/20 06:21 Phosphorus 2.5 mg/dL (2.5-4.6) 11/19/20 06:15 Magnesium 2.1 mg/dL (1.7-2.8) 11/23/20 06:21 Total Bilirubin 1.2 mg/dL (0.2-1.0) H 11/21/20 19:04 Direct Bilirubin 0.4 mg/dL (0.1-0.5) 11/13/20 00:31 AST 28 IU/L (10-42) 11/21/20 19:04 ALT 30 IU/L (10-60) 11/21/20 19:04 Alkaline Phosphatase 121 IU/L (42-121) 11/21/20 19:04 Troponin I High Sens 224.9 ng/L (2.3-19.7) H* 11/14/20 08:25 Total Protein 6.7 g/dL (6.7-8.2) 11/21/20 19:04 Albumin 2.5 g/dL (3.2-5.5) L 11/21/20 19:04 Globulin 4.2 g/dL (2.1-4.2) 11/21/20 19:04 Albumin/Globulin Ratio 0.6 (1.0-2.2) L 11/21/20 19:04 Nasal Screen MRSA (PCR) NEGATIVE (NEGATIVE) 11/13/20 02:00 Stl C. diff Tox B Gene POSITIVE (NEGATIVE) A* 11/17/20 15:30 Blood Type O POSITIVE 11/13/20 00:31 Blood Type Recheck O POSITIVE 11/13/20 01:40 Antibody Screen NEGATIVE 11/13/20 00:31 Crossmatch IS Only See Detail 11/13/20 00:31 - Procedures Procedures: Procedures BYPASS ILEUM TO CUTANEOUS, PERCUTANEOUS ENDOSCOPIC APPROACH (09/13/20) COLONOSCOPY (05/29/13) EXCISION OF RECTUM, OPEN APPROACH (09/13/20) EXCISION OF SIGMOID COLON, OPEN APPROACH (09/13/20) INSERTION OF INFUSION DEV INTO SUP VENA CAVA, PERC APPROACH (09/13/20) INSPECTION OF LOWER INTESTINAL TRACT, ENDO (09/13/20) INTRODUCTION OF NUTRITIONAL INTO CENTRAL VEIN, PERC APPROACH (09/13/20) RELEASE ILEUM, PERCUTANEOUS ENDOSCOPIC APPROACH (09/13/20) RELEASE LEFT LARGE INTESTINE, PERC ENDO APPROACH (09/13/20) Sepsis Event Note (H) - Evaluation Current Stage of Sepsis: Sepsis Possible source of Sepsis: positive: GI tract/intra-abdominal - Sepsis Criteria Sepsis Criteria: Recorded Temperature greater than 38.3C or Less than 36C, R ecorded Heart Rate greater than 90 bpm, WBC count greater than 12,000 or less than 4000 ABX Reporting Has patient been on IV antibiotics over the past 48 hours?: Yes
[2020-11-23] MEDS: SIMETHICONE CHEW 80 MG TABLET PO SCH ×4 (10:18→20:57)
[2020-11-23] MEDS: HEPARIN 5,000 UNIT/ML VIAL SUBQ SCH ×2 (10:18→20:57)
[2020-11-23] MEDS: PREGABALIN 100 MG CAPSULE PO SCH ×2 (10:19→20:57)
[2020-11-23] MEDS: VANCOMYCIN 125 MG CAPSULE PO SCH ×4 (10:19→20:58)
[2020-11-23] MEDS: amLODIPine 5 MG TABLET PO SCH (10:19)
[2020-11-23] MEDS: FLUCONAZOLE 200 MG/100 ML 100 ML IV SCH (10:21)
[2020-11-23] MEDS: POTASSIUM CHLOR 10 MEQ/100 ML 10 MEQ/100 ML BAG IV SCH ×4 (10:26→14:03)
[2020-11-23 12:35] LABS: VANCOMYCIN,TROUGH 9.4 ug/mL (10.0-20.0)
--- NOTE | 2020-11-23 13:25 | PHARMACY PROGRESS NOTE ---
- Therapy Status Vancomycin regimen day #: 3 Therapy status: Trough subtherapeutic Basis for treatment: Empirical Treatment indication: Internal abscess Trough goal: 15-20 Concurrent antibiotics: Zosyn - DAYANA Risk Risk level for Acute Kidney Injury: Moderate Acute Kidney Injury risk factors: Piperacillin/Tozobactam, Total daily Vancomycin >4 grams - Monitoring and Recommendation Clinical response to treatment: I&O Previous 24 hours 11/21/20 11/22/20 11/23/20 23:59 23:59 23:59 Intake Total 3519.333 5025 1561.25 Output Total 2070 1835 1050 Balance 8058.104 2501 511.25 Lab Results 11/23/20 11/22/20 11/21/20 06:21 05:30 19:04 BUN 13 21 H 28 H Creatinine 0.8 1.0 1.0 Estimated GFR (MDRD) 101 78 L 78 L 11/21/20 11/20/20 11/19/20 04:40 04:20 06:15 BUN 23 H 11 14 Creatinine 0.8 0.8 0.8 Estimated GFR (MDRD) 101 101 101 11/19/20 11/18/20 11/17/20 06:15 06:39 05:50 BUN 13 14 15 Creatinine 0.7 0.8 0.8 Estimated GFR (MDRD) 118 101 101 11/16/20 11/15/20 11/14/20 05:50 04:50 05:25 BUN 16 12 17 Creatinine 0.8 0.8 0.9 Estimated GFR (MDRD) 101 101 88 L 11/13/20 11/13/20 11/13/20 14:05 05:50 01:40 BUN 21 H 22 H 22 H Creatinine 1.1 1.5 H 1.9 H Estimated GFR (MDRD) 70 L 49 L 37 L 11/13/20 11/12/20 00:31 09:45 BUN 21 H 15 Creatinine 1.9 H 1.0 Estimated GFR (MDRD) 37 L 78 L Vancomycin Monitoring 11/23/20 12:15 Vancomycin Trough 9.4 L Cultures 11/22/20 11:00 Blood - Left Hand Blood Culture - Preliminary NO GROWTH AFTER 1 DAY 11/22/20 09:40 Blood Blood Culture - Preliminary NO GROWTH AFTER 1 DAY 11/20/20 08:26 Blood - Right Arm Blood Culture - Preliminary 11/20/20 08:08 Blood - Right Arm Blood Culture - Preliminary NO GROWTH AFTER 2 DAYS 11/20/20 08:26 Blood - Right Arm Blood Culture (PCR) - Final Monitoring plan: Daily serum creatinine, Suggest ongoing fluid replacement Next trough due (date/time): 11/25/20 at 0830 Areas for additional monitoring: IV to PO when appropriate, Therapy de- escalation based on culture results Pharmacy recommendation: Increase dose
--- NOTE | 2020-11-23 13:46 | PROVIDER PROGRESS NOTE ---
Subjective - Prog Note Date Prog Note Date: 11/23/20 - Subjective Pt reports feeling: Improved (denies nausea. tolerating diet) Objective - Vital Signs/Intake & Output Reviewed Vital Signs: Yes Vital Signs: Vital Signs x48h Temp Pulse Resp BP Pulse Ox 11/23/20 08:33 37.4 C 83 20 106/66 94 Intake & Output: Intake & Output 11/20/20 11/21/20 11/22/20 11/23/20 23:59 23:59 23:59 23:59 Intake Total 8911.851 9870.333 5025 1561.25 Output Total 1745 2070 1835 1050 Balance -55.417 6756.651 2953 511.25 - Objective General Appearance: positive: No acute distress, Alert Eyes Bilateral: positive: Normal inspection, PERRL ENT: positive: No signs of dehydration Neck: positive: No JVD Respiratory: positive: No respiratory distress Abdomen: positive: Non-tender, No distention, Other (dressing change earlier today. no erythema) Neurologic/Psychiatric: positive: Oriented x3 - Lab Results Fish Bones: 11/23/20 06:21 11/23/20 06:21 Other Labs: Lab Results x24hrs 11/23/20 11/23/20 11/23/20 Range/Units 12:15 06:21 06:21 WBC 18.3 H (4.8-10.8) x10^3/uL RBC 2.64 L (4.70-6.10) 10^6/uL Hgb 7.7 L (14.0-18.0) g/dL Hct 23.6 L (42.0-52.0) % MCV 89.4 (80.0-94.0) fL MCH 29.2 (27.0-31.0) pg MCHC 32.6 (32.0-36.0) g/dL RDW 15.1 H (12.0-15.0) % Plt Count 505 H (130-450) 10^3/uL MPV 10.0 (7.4-11.4) fL Neut # (Auto) 15.5 H (1.5-6.6) 10^3/uL Lymph # (Auto) 1.5 (1.5-3.5) 10^3/uL [place] # (Auto) 0.8 (0.0-1.0) 10^3/uL Eos # (Auto) 0.0 (0.0-0.7) 10^3/uL Baso # (Auto) 0.0 (0.0-0.1) 10^3/uL Absolute Nucleated RBC 0.00 x10^3/uL Nucleated RBC % 0.0 /100WBC Sodium 134 L (135-145) mmol/L Potassium 2.9 L (3.5-5.0) mmol/L Chloride 104 (101-111) mmol/L Carbon Dioxide 22 (21-32) mmol/L Anion Gap 8.0 (6-13) BUN 13 (6-20) mg/dL Creatinine 0.8 (0.6-1.2) mg/dL Estimated GFR (MDRD) 101 (>89) Glucose 132 H (70-100) mg/dL Calcium 7.6 L (8.5-10.3) mg/dL Magnesium 2.1 (1.7-2.8) mg/dL Last Dose Date UNK Last Dose Time UNK Vancomycin Trough 9.4 L (10.0-20.0) ug/mL Sepsis Event Note (H) - Evaluation Current Stage of Sepsis: Sepsis Possible source of Sepsis: positive: GI tract/intra-abdominal - Sepsis Criteria Sepsis Criteria: Recorded Temperature greater than 38.3C or Less than 36C, Recorded Heart Rate greater than 90 bpm, WBC count greater than 12,000 or less than 4000 Assessment/Plan - Problem List (1) Status post reversal of ileostomy Impression: improving daily now. continue present care
[2020-11-23] MEDS: D5NS W/20 MEQ KCL 1,000 ML IV SCH ×2 (14:04→16:21)
[2020-11-23] MEDS: VANCOMYCIN INJ 1 GM, VANCOMYCIN INJ 500 MG in SODIUM CHLORIDE 0.9% 500 ML IV SCH (17:08)
[2020-11-23] MEDS: FAT EMULSION 20% 250 ML IV SCH (19:09)
[2020-11-23] MEDS: PPN (CLINIMIX 4.25/5) 2,000 ML with MULTIVITAMIN 10 ML, TRACE ELEMENTS 1 ML, SODIUM CHL... IV SCH ×8 (19:09)
[2020-11-24] MEDS: SODIUM CHLORIDE FLUSH 0.9% 10 ML SYRINGE IVP SCH ×3 (00:44→17:55)
[2020-11-24] MEDS: VANCOMYCIN INJ 1 GM, VANCOMYCIN INJ 500 MG in SODIUM CHLORIDE 0.9% 500 ML IV SCH ×3 (00:45→17:55)
[2020-11-24] MEDS: methocarbamoL 500 MG TABLET PO SCH ×4 (00:45→17:55)
[2020-11-24] MEDS: PIPERACILLIN/TAZOBACTAM 3.375 GM in SODIUM CHLORIDE 0.9% MINIBAG 100 ML IV SCH ×3 (04:35→21:13)
[2020-11-24] MEDS: oxyCODONE 5 MG TABLET PO PRN ×3 (06:32→17:56)
[2020-11-24] MEDS: ACETAMINOPHEN 500 MG TABLET PO PRN ×3 (06:33→17:56)
--- NOTE | 2020-11-24 07:09 | PROVIDER PROGRESS NOTE ---
Assessment/Plan - Problem List (1) Sepsis Assessment/Plan: Patient continues to improve daily. WBC today is 19.9. Yesterday was 18.3 Patient is on vancomycin IV and p.o., Zosyn and Diflucan. Floristor was discontinued Blood Cultures repeated 11/22/20 (NGTD). Drainage tubes in place and draining. Lactic acid was normal. Patient's vitals were stable. Patient receiving IV hydration with D5 plus normal saline +20 mEq of potassium chloride at 75 mils per hour. PPN to be initiated today General surgery following. Overall patient's clinical status is improved. (2) Intra-abdominal abscess Assessment/Plan: Output from 2 drainage tubes have a dark reddish-brown color. Overall output has decreased but continues. We will continue to monitor. (3) Status post reversal of ileostomy Assessment/Plan: Post op day 11. Drainage tubes placed yesterday 11/21/20 for an intra abdominal abscess from a presumed bowel leak. Managed by general surgery (4) C. difficile diarrhea Assessment/Plan: On vancomycin 500mg qid day #7 Frequency of stools decreased. Diet advanced from clear to full liquid diet. Tolerated well. Will advance to soft mechanical diet for dinner (5) Postoperative anemia Assessment/Plan: Hemoglobin 8.4. We will continue to monitor. (8) Hypokalemia Assessment/Plan: Potassium today was 3.0. Due to diarrhea from C. diff. Will continue to replace and recheck. - Current Meds Current Meds: Current Medications Generic Name Dose Route Start Last Admin Trade Name Freq PRN Reason Stop Dose Admin Acetaminophen 500 mg 11/15/20 17:20 11/24/20 06:33 Acetaminophen 500 Mg Tablet PO 500 mg Q4HR PRN Administration Pain or Fever > 38C (100.4F) Amlodipine Besylate 5 mg 11/15/20 16:16 11/23/20 10:19 Amlodipine 5 Mg Tablet PO 5 mg DAILY ASHWIN Administration Heparin Sodium (Porcine) 5,000 unit 11/19/20 21:00 11/23/20 20:57 Heparin 5,000 Unit/Ml Vial SUBQ 5,000 unit BID ASHWIN Administration Potassium Chloride/Dextrose/Sod Cl 1,000 mls @ 75 mls/hr 11/19/20 19:40 11/14 19:07 D5ns W/20 Meq Kcl IV 0 mls/hr .[id number] ASHWIN Infusion Fluconazole 100 mls @ 100 mls/hr 11/21/20 11:00 11/23/20 11:21 Diflucan 200 Mg/100 Ml IV Infused DAILY ASHWIN Infusion Piperacillin Sod/Tazobactam 100 mls @ 25 mls/hr 11/22/20 01:00 11/24/20 04:35 Sod 3.375 gm/ Sodium Chloride IV 25 mls/hr Q8H ASHWIN Administration Multivitamins 10 ml/ TRACE 2,068.5 mls @ 83 mls/hr 11/23/20 19:00 11/23/20 19:09 ELEMENTS 1 ml/ Sodium Chloride IV 83 mls/hr 70 meq/ Potassium Chloride 15 Q24H ASHWIN Administration meq/ Calcium Gluconate 2,000 mg/ Magnesium Sulfate 1.25 gm/ Potassium Phosphate 30 mmol/ Protocol Amino Acids/Dextrose Fat Emulsion Intravenous 250 mls @ 21 mls/hr 11/23/20 19:00 11/23/20 19:09 Intralipid 20% IV 21 mls/hr Q24H ASHWIN Administration Vancomycin HCl 1 gm/ 500 mls @ 250 mls/hr 11/23/20 17:00 11/24/20 02:45 Vancomycin HCl 500 mg/ Sodium IV Infused Chloride Q8H ASHWIN Infusion Methocarbamol 500 mg 11/12/20 18:00 11/24/20 06:32 Methocarbamol 500 Mg Tablet PO 500 mg Q6HR ASHWIN Administration Mineral Oil 1 applic 11/16/20 16:23 11/16/20 20:52 Min Oil/Dimethicon/Coconut Oil 92 Gm Tube TOP 1 applic PRN PRN Administration Skin Care Ondansetron HCl 4 mg 11/12/20 17:01 11/21/20 19:13 Ondansetron 4 Mg/2 Ml Vial IVP 4 mg Q6HR PRN Administration Nausea / Vomiting Oxycodone HCl 5 mg 11/16/20 11:35 11/24/20 06:32 Oxycodone 5 Mg Tablet PO 5 mg Q4HR PRN Administration PAIN Pregabalin 100 mg 11/12/20 21:00 11/23/20 20:57 Pregabalin 100 Mg Capsule PO 100 mg BID ASHWIN Administration Simethicone 80 mg 11/19/20 20:00 11/23/20 20:57 Simethicone Chew 80 Mg Tablet PO 80 mg 0900,1300,1800,2100 ASHWIN Administration Sodium Chloride 10 ml 11/13/20 09:00 11/24/20 00:44 Sodium Chloride Flush 0.9% 10 Ml Syringe IVP 10 ml 0100,0900,1700 ASHWIN Administration Sodium Chloride 10 ml 11/13/20 01:35 11/20/20 13:05 Sodium Chloride Flush 0.9% 10 Ml Syringe IVP 10 ml PRN PRN Administration NEEDED PER PROVIDER ORDERS Sodium Chloride 20 ml 11/13/20 04:04 11/14/20 06:17 Sodium Chloride Flush 0.9% 10 Ml Syringe IVP 20 ml PRN PRN Administration After Blood Draw Tramadol HCl 50 mg 11/19/20 19:39 11/19/20 20:17 Tramadol 50 Mg Tablet PO 50 mg Q4HR PRN Administration PAIN Vancomycin HCl 500 mg 11/17/20 21:00 11/23/20 20:58 Vancomycin 125 Mg Capsule PO 11/28/20 23:59 500 mg QID ASHWIN Administration - Lab Result Fish Bone Diagrams: 11/24/20 07:24 11/24/20 07:24 - Additional Planning My Orders: My Active Orders 11/23/20 Lunch Full Liquid Diet [DIET] 11/24/20 07:08 BMP - BASIC METABOLIC PANEL [CHEM] Routine CBC - COMP BLD CT W/AUTO DIFF [HEME] Routine 11/25/20 05:00 BMP - BASIC METABOLIC PANEL [CHEM] DAILYLAB CBC - COMP BLD CT W/AUTO DIFF [HEME] DAILYLAB 11/26/20 05:00 BMP - BASIC METABOLIC PANEL [CHEM] DAILYLAB CBC - COMP BLD CT W/AUTO DIFF [HEME] DAILYLAB 11/27/20 05:00 BMP - BASIC METABOLIC PANEL [CHEM] DAILYLAB CBC - COMP BLD CT W/AUTO DIFF [HEME] DAILYLAB 11/28/20 05:00 BMP - BASIC METABOLIC PANEL [CHEM] DAILYLAB CBC - COMP BLD CT W/AUTO DIFF [HEME] DAILYLAB 11/29/20 05:00 BMP - BASIC METABOLIC PANEL [CHEM] DAILYLAB CBC - COMP BLD CT W/AUTO DIFF [HEME] DAILYLAB 11/30/20 05:00 BMP - BASIC METABOLIC PANEL [CHEM] DAILYLAB CBC - COMP BLD CT W/AUTO DIFF [HEME] DAILYLAB Subjective - Subjective Patient Reports: Other (Resting comfortably in bed. Main complain is the tenderness at the site of insertion of drainage tubes. Had 5 bowel movements last night and none since. No fever, dyspnea, chest pain, nausea or vomiting. Tolerated diet well) Objective Vital Signs: Vital Signs - 24 hr 11/23/20 11/23/20 11/23/20 08:33 16:52 22:55 Temperature 37.4 C 37.8 C 37.4 C Heart Rate [ 83 85 83 Brachial] Respiratory 20 22 21 Rate Blood Pressure 106/66 115/65 112/65 [Left Brachial artery] O2 Saturation 94 94 95 Oxygen O2 Source Room air I&O (Last 24 Hrs): Intake and Output Totals x24h 11/22/20 11/23/20 11/24/20 23:59 23:59 23:59 Intake Total 5025 4428.75 600 Output Total 1835 1890 2100 Balance 3190 2538.75 -1500 Comments/Notes: General: Alert, Oriented x3, Mild distress (At point of insetion of drainage tubes) HEENT: Atraumatic, PERRLA, EOMI Neck: Supple, No JVD Neuro: Alert, Non Focal, Oriented Times 3 Cardiovascular: Regular rate, No murmurs Respiratory: Chest non-tender, No respiratory distress, Breath sounds nml Abdomen: Normal bowel sounds, Soft, Other (mild tenderness where tube exits body) Skin: No rashes, No breakdown, No significant lesion - Results Results: Laboratory Results WBC 18.3 x10^3/uL (4.8-10.8) H 11/23/20 06:21 RBC 2.64 10^6/uL (4.70-6.10) L 11/23/20 06:21 Hgb 7.7 g/dL (14.0-18.0) L 11/23/20 06:21 Hct 23.6 % (42.0-52.0) L 11/23/20 06:21 MCV 89.4 fL (80.0-94.0) 11/23/20 06:21 MCH 29.2 pg (27.0-31.0) 11/23/20 06:21 MCHC 32.6 g/dL (32.0-36.0) 11/23/20 06:21 RDW 15.1 % (12.0-15.0) H 11/23/20 06:21 Plt Count 505 10^3/uL (130-450) H 11/23/20 06:21 MPV 10.0 fL (7.4-11.4) 11/23/20 06:21 Neut # (Auto) 15.5 10^3/uL (1.5-6.6) H 11/23/20 06:21 Lymph # (Auto) 1.5 10^3/uL (1.5-3.5) 11/23/20 06:21 [place] # (Auto) 0.8 10^3/uL (0.0-1.0) 11/23/20 06:21 Eos # (Auto) 0.0 10^3/uL (0.0-0.7) 11/23/20 06:21 Baso # (Auto) 0.0 10^3/uL (0.0-0.1) 11/23/20 06:21 Absolute Nucleated RBC 0.00 x10^3/uL 11/23/20 06:21 Total Counted 100 11/22/20 05:30 Band Neuts % (Manual) 0 % (0-10) 11/22/20 05:30 Abnorm Lymph % (Manual) 0 % 11/22/20 05:30 Myelocytes % 1 % (-0) H 11/14/20 05:25 Nucleated RBC % 0.0 /100WBC 11/23/20 06:21 Neutrophils # (Manual) 23.3 10^3/uL (1.5-6.6) H 11/22/20 05:30 Lymphocytes # (Manual) 1.3 10^3/uL (1.5-3.5) L 11/22/20 05:30 Monocytes # (Manual) 1.6 10^3/uL (0.0-1.0) H 11/22/20 05:30 Eosinophils # (Manual) 0.0 10^3/uL (0-0.7) 11/22/20 05:30 Basophils # (Manual) 0.0 10^3/uL (0-0.1) 11/22/20 05:30 Differential Comment MANUAL DIFFERENTIAL 11/22/20 05:30 Manual Slide Review Indicated 11/13/20 14:05 WBC Morphology NORMAL APPEARANCE (NORMAL) 11/22/20 05:30 Platelet Estimate INCREASED (>450,000) (NORMAL) 11/22/20 05:30 Platelet Morphology NORMAL APPEARANCE (NORMAL) 11/22/20 05:30 RBC Morph Micro Appear 1+ HYPOCHROMASIA (NORMAL) 1+ POLYCHROMASIA (NORMAL) 1+ TARGET CELLS (NORMAL) 11/22/20 05:30 RBC Morph Micro Appear 1+ HYPOCHROMASIA (NORMAL) 1+ POLYCHROMASIA (NORMAL) 1+ TARGET CELLS (NORMAL) 11/22/20 05:30 RBC Morph Micro Appear 1+ HYPOCHROMASIA (NORMAL) 1+ POLYCHROMASIA (NORMAL) 1+ TARGET CELLS (NORMAL) 11/22/20 05:30 PT 11.7 secs (9.9-12.6) 11/12/20 09:45 INR 1.0 (0.8-1.2) 11/12/20 09:45 Anti-Xa Level 0.3 U/mL (-0.7) 11/14/20 06:17 Bld Gas Analysis Time 0231 11/13/20 02:20 Sample Site RIGHT RADIAL 11/13/20 02:20 ABG pH 7.29 (7.35-7.45) L 11/13/20 02:20 ABG pCO2 25 mmHg (34-45) L* 11/13/20 02:20 ABG pO2 79 mmHg (80-100) L 11/13/20 02:20 ABG HCO3 11.7 mmol/L (22.0-26.0) L 11/13/20 02:20 ABG Total CO2 12.4 MMOL/L (21.0-29.0) L 11/13/20 02:20 ABG O2 Saturation 95 % (94-98) 11/13/20 02:20 ABG Base Excess -13.2 mmol/L (-2.0-3.0) L 11/13/20 02:20 Jose Test POSITIVE 11/13/20 02:20 Room Air YES 11/13/20 02:20 FiO2 0.21 11/13/20 02:20 Sodium 134 mmol/L (135-145) L 11/23/20 06:21 Potassium 2.9 mmol/L (3.5-5.0) L 11/23/20 06:21 Chloride 104 mmol/L (101-111) 11/23/20 06:21 Carbon Dioxide 22 mmol/L (21-32) 11/23/20 06:21 Anion Gap 8.0 (6-13) 11/23/20 06:21 BUN 13 mg/dL (6-20) 11/23/20 06:21 Creatinine 0.8 mg/dL (0.6-1.2) 11/23/20 06:21 Estimated GFR (MDRD) 101 (>89) 11/23/20 06:21 Glucose 132 mg/dL (70-100) H 11/23/20 06:21 POC Whole Bld Glucose 119 mg/dL (70 - 100) H 11/17/20 23:45 Lactic Acid 1.2 mmol/L (0.5-2.2) 11/21/20 19:04 Calcium 7.6 mg/dL (8.5-10.3) L 11/23/20 06:21 Phosphorus 2.5 mg/dL (2.5-4.6) 11/19/20 06:15 Magnesium 2.1 mg/dL (1.7-2.8) 11/23/20 06:21 Total Bilirubin 1.2 mg/dL (0.2-1.0) H 11/21/20 19:04 Direct Bilirubin 0.4 mg/dL (0.1-0.5) 11/13/20 00:31 AST 28 IU/L (10-42) 11/21/20 19:04 ALT 30 IU/L (10-60) 11/21/20 19:04 Alkaline Phosphatase 121 IU/L (42-121) 11/21/20 19:04 Troponin I High Sens 224.9 ng/L (2.3-19.7) H* 11/14/20 08:25 Total Protein 6.7 g/dL (6.7-8.2) 11/21/20 19:04 Albumin 2.5 g/dL (3.2-5.5) L 11/21/20 19:04 Globulin 4.2 g/dL (2.1-4.2) 11/21/20 19:04 Albumin/Globulin Ratio 0.6 (1.0-2.2) L 11/21/20 19:04 Nasal Screen MRSA (PCR) NEGATIVE (NEGATIVE) 11/13/20 02:00 Stl C. diff Tox B Gene POSITIVE (NEGATIVE) A* 11/17/20 15:30 Last Dose Date UNK 11/23/20 12:15 Last Dose Time UNK 11/23/20 12:15 Vancomycin Trough 9.4 ug/mL (10.0-20.0) L 11/23/20 12:15 Blood Type O POSITIVE 11/13/20 00:31 Blood Type Recheck O POSITIVE 11/13/20 01:40 Antibody Screen NEGATIVE 11/13/20 00:31 Crossmatch IS Only See Detail 11/13/20 00:31 - Procedures Procedures: Procedures BYPASS ILEUM TO CUTANEOUS, PERCUTANEOUS ENDOSCOPIC APPROACH (09/13/20) COLONOSCOPY (05/29/13) EXCISION OF RECTUM, OPEN APPROACH (09/13/20) EXCISION OF SIGMOID COLON, OPEN APPROACH (09/13/20) INSERTION OF INFUSION DEV INTO SUP VENA CAVA, PERC APPROACH (09/13/20) INSPECTION OF LOWER INTESTINAL TRACT, ENDO (09/13/20) INTRODUCTION OF NUTRITIONAL INTO CENTRAL VEIN, PERC APPROACH (09/13/20) RELEASE ILEUM, PERCUTANEOUS ENDOSCOPIC APPROACH (09/13/20) RELEASE LEFT LARGE INTESTINE, PERC ENDO APPROACH (09/13/20) Sepsis Event Note (H) - Evaluation Current Stage of Sepsis: Sepsis Possible source of Sepsis: positive: GI tract/intra-abdominal - Sepsis Criteria Sepsis Criteria: Recorded Temperature greater than 38.3C or Less than 36C, Recorded Heart Rate greater than 90 bpm, WBC count greater than 12,000 or less than 4000 ABX Reporting Has patient been on IV antibiotics over the past 48 hours?: Yes
[2020-11-24 07:37] LABS: BASOPHILS % (AUTO) 0.2 %; EOSINOPHILS % (AUTO) 0.6 %; HCT - HEMATOCRIT 26.2 % (42.0-52.0); HGB - HEMOGLOBIN 8.4 g/dL (14.0-18.0); LYMPHOCYTES % (AUTO) 6.9 %; MEAN CORPUSCULAR HEMOGLOBIN 28.6 pg (27.0-31.0); MEAN CORPUSCULAR HGB CONC 32.1 g/dL (32.0-36.0); MEAN CORPUSCULAR VOLUME 89.1 fL (80.0-94.0); MEAN PLATELET VOLUME 10.1 fL (7.4-11.4); MONOCYTES % (AUTO) 3.8 %; NEUTROPHILS % (AUTO) 84.4 %; PLT - PLATELET COUNT 596 10^3/uL (130-450); RED BLOOD COUNT 2.94 10^6/uL (4.70-6.10); RED CELL DISTRIBUTION WIDTH 14.7 % (12.0-15.0); WHITE BLOOD COUNT 19.9 x10^3/uL (4.8-10.8)
[2020-11-24 07:41] LABS: SLIDE REVIEW? Indicated
[2020-11-24 07:43] LABS: CALCIUM 7.5 mg/dL (8.5-10.3); CREATININE 0.7 mg/dL (0.6-1.2)
[2020-11-24 08:12] LABS: ABNORMAL LYMPHS % (MANUAL) 0 %
[2020-11-24 08:14] LABS: BAND NEUTROPHILS % (MANUAL) 4 %; LYMPHOCYTES # (MANUAL) 1.6 10^3/uL (1.5-3.5); LYMPHOCYTES % (MANUAL) 8 %; MONOCYTES # (MANUAL) 0.8 10^3/uL (0.0-1.0); NEUTROPHILS # (MANUAL) 17.5 10^3/uL (1.5-6.6); NUCLEATED RBC (MANUAL) 2 %
[2020-11-24 08:15] LABS: DIFFERENTIAL COMMENT MANUAL DIFFERENTIAL
[2020-11-24] MEDS: FLUCONAZOLE 200 MG/100 ML 100 ML IV SCH (09:19)
[2020-11-24] MEDS: HEPARIN 5,000 UNIT/ML VIAL SUBQ SCH ×2 (09:22→21:18)
[2020-11-24] MEDS: SIMETHICONE CHEW 80 MG TABLET PO SCH ×4 (09:22→21:19)
[2020-11-24] MEDS: VANCOMYCIN 125 MG CAPSULE PO SCH ×4 (09:23→21:19)
[2020-11-24] MEDS: PREGABALIN 100 MG CAPSULE PO SCH ×2 (09:23→21:19)
[2020-11-24] MEDS: amLODIPine 5 MG TABLET PO SCH (09:23)
[2020-11-24] MEDS: POTASSIUM CHLOR 10 MEQ/100 ML 10 MEQ/100 ML BAG IV SCH ×4 (11:22→14:27)
--- NOTE | 2020-11-24 13:11 | PROVIDER PROGRESS NOTE ---
Subjective - Prog Note Date Prog Note Date: 11/24/20 - Subjective Pt reports feeling: No change (feeling ok. no n/v. tolerating fulls. 2 loose bms) Objective - Vital Signs/Intake & Output Reviewed Vital Signs: Yes Vital Signs: Vital Signs x48h Temp Pulse Resp BP Pulse Ox 11/24/20 08:12 37.1 C 89 16 90/63 95 Intake & Output: Intake & Output 11/21/20 11/22/20 11/23/20 11/24/20 23:59 23:59 23:59 23:59 Intake Total 3519.333 5025 4428.75 1550 Output Total 2070 1835 1890 2400 Balance 4290.945 4784 2538.75 -850 - Objective General Appearance: positive: No acute distress, Alert Eyes Bilateral: positive: Normal inspection ENT: positive: No signs of dehydration Neck: positive: No JVD Respiratory: positive: No respiratory distress Abdomen: positive: Non-tender, No distention, Other (drain thin red/brown. improving) - Lab Results Fish Bones: 11/24/20 07:24 11/24/20 07:24 Other Labs: Lab Results x24hrs 11/24/20 11/24/20 Range/Units 07:24 07:24 WBC 19.9 H (4.8-10.8) x10^3/uL RBC 2.94 L (4.70-6.10) 10^6/uL Hgb 8.4 L (14.0-18.0) g/dL Hct 26.2 L (42.0-52.0) % MCV 89.1 (80.0-94.0) fL MCH 28.6 (27.0-31.0) pg MCHC 32.1 (32.0-36.0) g/dL RDW 14.7 (12.0-15.0) % Plt Count 596 H (130-450) 10^3/uL MPV 10.1 (7.4-11.4) fL Neut # (Auto) Not Reportable Lymph # (Auto) Not Reportable [place] # (Auto) Not Reportable Eos # (Auto) Not Reportable Baso # (Auto) Not Reportable Absolute Nucleated RBC Not Reportable Total Counted 100 Band Neuts % (Manual) 4 (0 - 10) % Abnorm Lymph % (Manual) 0 % Nucleated RBC % Not Reportable Neutrophils # (Manual) 17.5 H (1.5-6.6) 10^3/uL Lymphocytes # (Manual) 1.6 (1.5-3.5) 10^3/uL Monocytes # (Manual) 0.8 (0.0-1.0) 10^3/uL Eosinophils # (Manual) 0.0 (0-0.7) 10^3/uL Basophils # (Manual) 0.0 (0-0.1) 10^3/uL Nucleated RBCs 2 % Differential Comment MANUAL DIFFERENTIAL Manual Slide Review Indicated Sodium 133 L (135-145) mmol/L Potassium 3.0 L (3.5-5.0) mmol/L Chloride 103 (101-111) mmol/L Carbon Dioxide 22 (21-32) mmol/L Anion Gap 8.0 (6-13) BUN 9 (6-20) mg/dL Creatinine 0.7 (0.6-1.2) mg/dL Estimated GFR (MDRD) 118 (>89) Glucose 159 H (70-100) mg/dL Calcium 7.5 L (8.5-10.3) mg/dL Sepsis Event Note (H) - Evaluation Current Stage of Sepsis: Sepsis Possible source of Sepsis: positive: GI tract/intra-abdominal - Sepsis Criteria Sepsis Criteria: Recorded Temperature greater than 38.3C or Less than 36C, Recorded Heart Rate greater than 90 bpm, WBC count greater than 12,000 or less than 4000 Assessment/Plan - Problem List (1) Status post reversal of ileostomy Impression: slow improvement daily now. continue present care
[2020-11-24] MEDS: D5NS W/20 MEQ KCL 1,000 ML IV SCH ×2 (15:22→20:40)
[2020-11-24] MEDS: PPN (CLINIMIX 4.25/5) 2,000 ML with MULTIVITAMIN 10 ML, TRACE ELEMENTS 1 ML, SODIUM CHL... IV SCH ×8 (18:26)
[2020-11-24] MEDS: FAT EMULSION 20% 250 ML IV SCH (18:26)
[2020-11-25] MEDS: SODIUM CHLORIDE FLUSH 0.9% 10 ML SYRINGE IVP SCH ×3 (01:08→16:55)
[2020-11-25] MEDS: methocarbamoL 500 MG TABLET PO SCH ×4 (01:08→18:12)
[2020-11-25] MEDS: VANCOMYCIN INJ 1 GM, VANCOMYCIN INJ 500 MG in SODIUM CHLORIDE 0.9% 500 ML IV SCH ×3 (01:09→16:56)
[2020-11-25] MEDS: oxyCODONE 5 MG TABLET PO PRN ×4 (01:35→16:55)
[2020-11-25] MEDS: ACETAMINOPHEN 500 MG TABLET PO PRN ×4 (01:36→16:55)
[2020-11-25] MEDS: SODIUM CHLORIDE FLUSH 0.9% 10 ML SYRINGE IVP PRN (03:33)
[2020-11-25] MEDS: PIPERACILLIN/TAZOBACTAM 3.375 GM in SODIUM CHLORIDE 0.9% MINIBAG 100 ML IV SCH ×3 (03:33→21:10)
[2020-11-25 06:31] LABS: BASOPHILS % (AUTO) 0.3 %; EOSINOPHILS % (AUTO) 0.8 %; HCT - HEMATOCRIT 25.7 % (42.0-52.0); HGB - HEMOGLOBIN 8.3 g/dL (14.0-18.0); LYMPHOCYTES % (AUTO) 9.7 %; MEAN CORPUSCULAR HEMOGLOBIN 28.8 pg (27.0-31.0); MEAN CORPUSCULAR HGB CONC 32.3 g/dL (32.0-36.0); MEAN CORPUSCULAR VOLUME 89.2 fL (80.0-94.0); MEAN PLATELET VOLUME 10.1 fL (7.4-11.4); MONOCYTES % (AUTO) 6.5 %; NEUTROPHILS % (AUTO) 75.9 %; PLT - PLATELET COUNT 644 10^3/uL (130-450); RED BLOOD COUNT 2.88 10^6/uL (4.70-6.10); RED CELL DISTRIBUTION WIDTH 14.6 % (12.0-15.0); WHITE BLOOD COUNT 18.6 x10^3/uL (4.8-10.8)
[2020-11-25 06:37] LABS: CREATININE 0.7 mg/dL (0.6-1.2); POTASSIUM 3.3 mmol/L (3.5-5.0)
[2020-11-25 06:38] LABS: SLIDE REVIEW? Indicated
[2020-11-25 06:40] LABS: ABNORMAL LYMPHS % (MANUAL) 0 %
[2020-11-25 07:42] LABS: BAND NEUTROPHILS % (MANUAL) 3 %; LYMPHOCYTES % (MANUAL) 16 %; METAMYELOCYTES % (MANUAL) 2 %; MONOCYTES # (MANUAL) 0.9 10^3/uL (0.0-1.0); MYELOCYTES % (MANUAL) 1 %; PLASMA CELLS % (MANUAL) 1 %
[2020-11-25 07:46] LABS: DIFFERENTIAL COMMENT MANUAL DIFFERENTIAL; PLATELET ESTIMATE, MANUAL INCREASED (>450,000) (NORMAL); PLATELET MORPHOLOGY NORMAL APPEARANCE (NORMAL); WBC MORPHOLOGY (MULTIPLE) NORMAL APPEARANCE (NORMAL)
--- NOTE | 2020-11-25 08:17 | PROVIDER PROGRESS NOTE ---
Assessment/Plan - Problem List (1) Sepsis Assessment/Plan: Patient continues to improve daily. WBC today is 18.6. Yesterday was 19.9 Patient is on vancomycin IV and p.o., Zosyn and Diflucan. Floristor was discontinued Blood Cultures repeated 11/22/20 (NGTD). Drainage tubes in place and draining. Cultures of drainage from [facility] came back positive for heavy growth of E. coli, heavy growth of normal eber and heavy growth of Fusobacterium varium they were all pansensitive. Lactic acid was normal. Patient's vitals were stable. IV fluids discontinued today Tolerating mechanical soft diet PPN to be continued for one more night General surgery following. Overall patient's clinical status is improved. (2) Intra-abdominal abscess Assessment/Plan: Output from 2 drainage tubes have a dark reddish-brown color. Continues to decrease daily. We will continue to monitor. (3) Status post reversal of ileostomy Assessment/Plan: Post op day 12. Drainage tubes placed 11/21/20 for an intra abdominal abscess from a presumed bowel leak. Managed by general surgery (4) C. difficile diarrhea Assessment/Plan: On vancomycin 500mg qid day #8 Frequency of stools decreased. Diet advanced from clear to full liquid diet. Tolerated soft mechanical diet well (5) Postoperative anemia Assessment/Plan: Hemoglobin 8.3. We will continue to monitor. (8) Hypokalemia Assessment/Plan: Potassium today was 3.3. Due to diarrhea from C. diff. Will continue to replace and recheck. Patient also receiving approximately 60 mEq of potassium in his PPN. - Current Meds Current Meds: Current Medications Generic Name Dose Route Start Last Admin Trade Name Freq PRN Reason Stop Dose Admin Acetaminophen 500 mg 11/15/20 17:20 11/25/20 06:33 Acetaminophen 500 Mg Tablet PO 500 mg Q4HR PRN Administration Pain or Fever > 38C (100.4F) Amlodipine Besylate 5 mg 11/15/20 16:16 11/24/20 09:23 Amlodipine 5 Mg Tablet PO 5 mg DAILY ASHWIN Administration Heparin Sodium (Porcine) 5,000 unit 11/19/20 21:00 11/24/20 21:18 Heparin 5,000 Unit/Ml Vial SUBQ 5,000 unit BID ASHWIN Administration Potassium Chloride/Dextrose/Sod Cl 1,000 mls @ 75 mls/hr 11/19/20 19:40 11/24/20 21:20 D5ns W/20 Meq Kcl IV Infused .[id number] ASHWIN Infusion Fluconazole 100 mls @ 100 mls/hr 11/21/20 11:00 11/24/20 10:20 Diflucan 200 Mg/100 Ml IV Infused DAILY ASHWIN Infusion Piperacillin Sod/Tazobactam 100 mls @ 25 mls/hr 11/22/20 01:00 11/25/20 07:46 Sod 3.375 gm/ Sodium Chloride IV Infused Q8H ASHWIN Infusion Multivitamins 10 ml/ TRACE 2,068.5 mls @ 83 mls/hr 11/23/20 19:00 11/24/20 18:26 ELEMENTS 1 ml/ Sodium Chloride IV 83 mls/hr 70 meq/ Potassium Chloride 15 Q24H ASHWIN Administration meq/ Calcium Gluconate 2,000 mg/ Magnesium Sulfate 1.25 gm/ Potassium Phosphate 30 mmol/ Protocol Amino Acids/Dextrose Fat Emulsion Intravenous 250 mls @ 21 mls/hr 11/23/20 19:00 11/25/20 06:30 Intralipid 20% IV Infused Q24H ASHWIN Infusion Vancomycin HCl 1 gm/ 500 mls @ 250 mls/hr 11/23/20 17:00 11/25/20 03:30 Vancomycin HCl 500 mg/ Sodium IV Infused Chloride Q8H ASHWIN Infusion Methocarbamol 500 mg 11/12/20 18:00 11/25/20 06:32 Methocarbamol 500 Mg Tablet PO 500 mg Q6HR ASHWIN Administration Mineral Oil 1 applic 11/16/20 16:23 11/16/20 20:52 Min Oil/Dimethicon/Coconut Oil 92 Gm Tube TOP 1 applic PRN PRN Administration Skin Care Ondansetron HCl 4 mg 11/12/20 17:01 11/21/20 19:13 Ondansetron 4 Mg/2 Ml Vial IVP 4 mg Q6HR PRN Administration Nausea / Vomiting Oxycodone HCl 5 mg 11/16/20 11:35 11/25/20 06:32 Oxycodone 5 Mg Tablet PO 5 mg Q4HR PRN Administration PAIN Pregabalin 100 mg 11/12/20 21:00 11/24/20 21:19 Pregabalin 100 Mg Capsule PO 100 mg BID ASHWIN Administration Simethicone 80 mg 11/19/20 20:00 11/24/20 21:19 Simethicone Chew 80 Mg Tablet PO 80 mg 0900,1300,1800,2100 ASHWIN Administration Sodium Chloride 10 ml 11/13/20 09:00 11/25/20 01:08 Sodium Chloride Flush 0.9% 10 Ml Syringe IVP 10 ml 0100,0900,1700 ASHWIN Administration Sodium Chloride 10 ml 11/13/20 01:35 11/25/20 03:33 Sodium Chloride Flush 0.9% 10 Ml Syringe IVP 10 ml PRN PRN Administration NEEDED PER PROVIDER ORDERS Sodium Chloride 20 ml 11/13/20 04:04 11/14/20 06:17 Sodium Chloride Flush 0.9% 10 Ml Syringe IVP 20 ml PRN PRN Administration After Blood Draw Tramadol HCl 50 mg 11/19/20 19:39 11/19/20 20:17 Tramadol 50 Mg Tablet PO 50 mg Q4HR PRN Administration PAIN Vancomycin HCl 500 mg 11/17/20 21:00 11/24/20 21:19 Vancomycin 125 Mg Capsule PO 11/28/20 23:59 500 mg QID ASHWIN Administration - Lab Result Fish Bone Diagrams: 11/25/20 05:52 11/25/20 05:52 - Additional Planning My Orders: My Active Orders 11/25/20 09:00 Potassium Chloride/Water 10 mEq/100 mL q1h (Enter # of bags) Potassium Chlor 10 Meq/100 ml [Potassium Chloride] 10 meq in 100 ml IV Q1H 11/26/20 05:00 BMP - BASIC METABOLIC PANEL [CHEM] DAILYLAB CBC - COMP BLD CT W/AUTO DIFF [HEME] DAILYLAB 11/27/20 05:00 BMP - BASIC METABOLIC PANEL [CHEM] DAILYLAB CBC - COMP BLD CT W/AUTO DIFF [HEME] DAILYLAB 11/28/20 05:00 BMP - BASIC METABOLIC PANEL [CHEM] DAILYLAB CBC - COMP BLD CT W/AUTO DIFF [HEME] DAILYLAB 11/29/20 05:00 BMP - BASIC METABOLIC PANEL [CHEM] DAILYLAB CBC - COMP BLD CT W/AUTO DIFF [HEME] DAILYLAB 11/30/20 05:00 BMP - BASIC METABOLIC PANEL [CHEM] DAILYLAB CBC - COMP BLD CT W/AUTO DIFF [HEME] DAILYLAB Subjective - Subjective Patient Reports: Other (And resting comfortably in bed. Denied any significant complaints except for tenderness at the site of sensation over his drainage tubes. Output from the drainage tubes have significantly decreased. Frequency and amount of diarrhea has also significantly decreased.) Objective Vital Signs: Vital Signs - 24 hr 11/24/20 11/25/20 15:42 01:25 Temperature 37.8 C 37.8 C Heart Rate [ 92 88 Brachial] Respiratory 20 17 Rate Blood Pressure 131/68 H 121/70 [Right Brachial artery] O2 Saturation 96 93 Oxygen O2 Source Room air I&O (Last 24 Hrs): Intake and Output Totals x24h 11/23/20 11/24/20 11/25/20 23:59 23:59 23:59 Intake Total 4428.75 5114.184 1190 Output Total 1890 5585 2270 Balance 2538.75 -470.816 -1080 General: Alert, Oriented x3, Cooperative, Mild distress, Moderate distress HEENT: PERRLA, EOMI Neck: Supple, No JVD Neuro: Alert, Non Focal, Oriented Times 3 Cardiovascular: Regular rate, No murmurs Respiratory: Chest non-tender, No respiratory distress, Breath sounds nml Abdomen: Normal bowel sounds, Soft, Other (Mild tenderness at site of insertion of drainage tubes) Extremities: No clubbing, No edema Skin: No rashes, No breakdown - Results Results: Laboratory Results WBC 18.6 x10^3/uL (4.8-10.8) H 11/25/20 05:52 RBC 2.88 10^6/uL (4.70-6.10) L 11/25/20 05:52 Hgb 8.3 g/dL (14.0-18.0) L 11/25/20 05:52 Hct 25.7 % (42.0-52.0) L 11/25/20 05:52 MCV 89.2 fL (80.0-94.0) 11/25/20 05:52 MCH 28.8 pg (27.0-31.0) 11/25/20 05:52 MCHC 32.3 g/dL (32.0-36.0) 11/25/20 05:52 RDW 14.6 % (12.0-15.0) 11/25/20 05:52 Plt Count 644 10^3/uL (130-450) H 11/25/20 05:52 MPV 10.1 fL (7.4-11.4) 11/25/20 05:52 Neut # (Auto) Not Reportable 11/25/20 05:52 Lymph # (Auto) Not Reportable 11/25/20 05:52 [place] # (Auto) Not Reportable 11/25/20 05:52 Eos # (Auto) Not Reportable 11/25/20 05:52 Baso # (Auto) Not Reportable 11/25/20 05:52 Absolute Nucleated RBC Not Reportable 11/25/20 05:52 Total Counted 100 11/25/20 05:52 Band Neuts % (Manual) 3 % (0-10) 11/25/20 05:52 Abnorm Lymph % (Manual) 0 % 11/25/20 05:52 Metamyelocytes % 2 % (-0) H 11/25/20 05:52 Myelocytes % 1 % (-0) H 11/25/20 05:52 Plasma Cell % (Manual) 1 % 11/25/20 05:52 Nucleated RBC % Not Reportable 11/25/20 05:52 Neutrophils # (Manual) 14.0 10^3/uL (1.5-6.6) H 11/25/20 05:52 Lymphocytes # (Manual) 3.0 10^3/uL (1.5-3.5) 11/25/20 05:52 Monocytes # (Manual) 0.9 10^3/uL (0.0-1.0) 11/25/20 05:52 Eosinophils # (Manual) 0.0 10^3/uL (0-0.7) 11/25/20 05:52 Basophils # (Manual) 0.0 10^3/uL (0-0.1) 11/25/20 05:52 Nucleated RBCs 2 % 11/24/20 07:24 Differential Comment MANUAL DIFFERENTIAL 11/25/20 05:52 Manual Slide Review Indicated 11/25/20 05:52 WBC Morphology NORMAL APPEARANCE (NORMAL) 11/25/20 05:52 Platelet Estimate INCREASED (>450,000) (NORMAL) 11/25/20 05:52 Platelet Morphology NORMAL APPEARANCE (NORMAL) 11/25/20 05:52 RBC Morph Micro Appear 1+ HYPOCHROMASIA (NORMAL) 1+ POLYCHROMASIA (NORMAL) 11/25/20 05:52 RBC Morph Micro Appear 1+ HYPOCHROMASIA (NORMAL) 1+ POLYCHROMASIA (NORMAL) 11/25/20 05:52 PT 11.7 secs (9.9-12.6) 11/12/20 09:45 INR 1.0 (0.8-1.2) 11/12/20 09:45 Anti-Xa Level 0.3 U/mL (-0.7) 11/14/20 06:17 Bld Gas Analysis Time 0231 11/13/20 02:20 Sample Site RIGHT RADIAL 11/13/20 02:20 ABG pH 7.29 (7.35-7.45) L 11/13/20 02:20 ABG pCO2 25 mmHg (34-45) L* 11/13/20 02:20 ABG pO2 79 mmHg (80-100) L 11/13/20 02:20 ABG HCO3 11.7 mmol/L (22.0-26.0) L 11/13/20 02:20 ABG Total CO2 12.4 MMOL/L (21.0-29.0) L 11/13/20 02:20 ABG O2 Saturation 95 % (94-98) 11/13/20 02:20 ABG Base Excess -13.2 mmol/L (-2.0-3.0) L 11/13/20 02:20 Jose Test POSITIVE 11/13/20 02:20 Room Air YES 11/13/20 02:20 FiO2 0.21 11/13/20 02:20 Sodium 136 mmol/L (135-145) 11/25/20 05:52 Potassium 3.3 mmol/L (3.5-5.0) L 11/25/20 05:52 Chloride 105 mmol/L (101-111) 11/25/20 05:52 Carbon Dioxide 24 mmol/L (21-32) 11/25/20 05:52 Anion Gap 7.0 (6-13) 11/25/20 05:52 BUN 9 mg/dL (6-20) 11/25/20 05:52 Creatinine 0.7 mg/dL (0.6-1.2) 11/25/20 05:52 Estimated GFR (MDRD) 118 (>89) 11/25/20 05:52 Glucose 127 mg/dL (70-100) H 11/25/20 05:52 POC Whole Bld Glucose 119 mg/dL (70 - 100) H 11/17/20 23:45 Lactic Acid 1.2 mmol/L (0.5-2.2) 11/21/20 19:04 Calcium 8.0 mg/dL (8.5-10.3) L 11/25/20 05:52 Phosphorus 2.5 mg/dL (2.5-4.6) 11/19/20 06:15 Magnesium 2.1 mg/dL (1.7-2.8) 11/23/20 06:21 Total Bilirubin 1.2 mg/dL (0.2-1.0) H 11/21/20 19:04 Direct Bilirubin 0.4 mg/dL (0.1-0.5) 11/13/20 00:31 AST 28 IU/L (10-42) 11/21/20 19:04 ALT 30 IU/L (10-60) 11/21/20 19:04 Alkaline Phosphatase 121 IU/L (42-121) 11/21/20 19:04 Troponin I High Sens 224.9 ng/L (2.3-19.7) H* 11/14/20 08:25 Total Protein 6.7 g/dL (6.7-8.2) 11/21/20 19:04 Albumin 2.5 g/dL (3.2-5.5) L 11/21/20 19:04 Globulin 4.2 g/dL (2.1-4.2) 11/21/20 19:04 Albumin/Globulin Ratio 0.6 (1.0-2.2) L 11/21/20 19:04 Nasal Screen MRSA (PCR) NEGATIVE (NEGATIVE) 11/13/20 02:00 Stl C. diff Tox B Gene POSITIVE (NEGATIVE) A* 11/17/20 15:30 Last Dose Date UNK 11/23/20 12:15 Last Dose Time UNK 11/23/20 12:15 Vancomycin Trough 9.4 ug/mL (10.0-20.0) L 11/23/20 12:15 Blood Type O POSITIVE 11/13/20 00:31 Blood Type Recheck O POSITIVE 11/13/20 01:40 Antibody Screen NEGATIVE 11/13/20 00:31 Crossmatch IS Only See Detail 11/13/20 00:31 - Procedures Procedures: Procedures BYPASS ILEUM TO CUTANEOUS, PERCUTANEOUS ENDOSCOPIC APPROACH (09/13/20) COLONOSCOPY (05/29/13) EXCISION OF RECTUM, OPEN APPROACH (09/13/20) EXCISION OF SIGMOID COLON, OPEN APPROACH (09/13/20) INSERTION OF INFUSION DEV INTO SUP VENA CAVA, PERC APPROACH (09/13/20) INSPECTION OF LOWER INTESTINAL TRACT, ENDO (09/13/20) INTRODUCTION OF NUTRITIONAL INTO CENTRAL VEIN, PERC APPROACH (09/13/20) RELEASE ILEUM, PERCUTANEOUS ENDOSCOPIC APPROACH (09/13/20) RELEASE LEFT LARGE INTESTINE, PERC ENDO APPROACH (09/13/20) Sepsis Event Note (H) - Evaluation Current Stage of Sepsis: Sepsis Possible source of Sepsis: positive: GI tract/intra-abdominal - Sepsis Criteria Sepsis Criteria: Recorded Temperature greater than 38.3C or Less than 36C, Recorded Heart Rate greater than 90 bpm, WBC count greater than 12,000 or less than 4000 ABX Reporting Has patient been on IV antibiotics over the past 48 hours?: Yes
[2020-11-25 08:35] LABS: VANCOMYCIN,TROUGH 15.7 ug/mL (10.0-20.0)
[2020-11-25] MEDS: VANCOMYCIN 125 MG CAPSULE PO SCH ×4 (10:12→21:10)
[2020-11-25] MEDS: amLODIPine 5 MG TABLET PO SCH (10:13)
[2020-11-25] MEDS: SIMETHICONE CHEW 80 MG TABLET PO SCH ×4 (10:14→21:10)
[2020-11-25] MEDS: HEPARIN 5,000 UNIT/ML VIAL SUBQ SCH ×2 (10:14→21:09)
[2020-11-25] MEDS: POTASSIUM CHLOR 10 MEQ/100 ML 10 MEQ/100 ML BAG IV SCH ×4 (10:18→14:16)
[2020-11-25] MEDS: FLUCONAZOLE 200 MG/100 ML 100 ML IV SCH (10:19)
[2020-11-25] MEDS: PREGABALIN 100 MG CAPSULE PO SCH ×2 (10:20→21:10)
[2020-11-25 11:08] LABS: PREALBUMIN 7 mg/dL (18-45); TRIGLYCERIDES 119 mg/dL
--- NOTE | 2020-11-25 13:28 | PHARMACY PROGRESS NOTE ---
- Therapy Status Vancomycin regimen day #: 5 Therapy status: Trough therapeutic Basis for treatment: Empirical Trough goal: 15-20 Concurrent antibiotics: Zosyn and fluconazole - DAYANA Risk Risk level for Acute Kidney Injury: Moderate Acute Kidney Injury risk factors: Piperacillin/Tozobactam, Total daily Vancomycin >4 grams - Monitoring and Recommendation Clinical response to treatment: I&O Previous 24 hours 11/23/20 11/24/20 11/25/20 23:59 23:59 23:59 Intake Total 4428.75 5114.184 1730 Output Total 1890 5585 3320 Balance 2538.75 -470.816 -1590 Lab Results 11/25/20 11/24/20 11/23/20 05:52 07:24 06:21 BUN 9 9 13 Creatinine 0.7 0.7 0.8 Estimated GFR (MDRD) 118 118 101 11/22/20 11/21/20 11/21/20 05:30 19:04 04:40 BUN 21 H 28 H 23 H Creatinine 1.0 1.0 0.8 Estimated GFR (MDRD) 78 L 78 L 101 11/20/20 11/19/20 11/19/20 04:20 06:15 06:15 BUN 11 14 13 Creatinine 0.8 0.8 0.7 Estimated GFR (MDRD) 101 101 118 11/18/20 11/17/20 11/16/20 06:39 05:50 05:50 BUN 14 15 16 Creatinine 0.8 0.8 0.8 Estimated GFR (MDRD) 101 101 101 11/15/20 11/14/20 11/13/20 04:50 05:25 14:05 BUN 12 17 21 H Creatinine 0.8 0.9 1.1 Estimated GFR (MDRD) 101 88 L 70 L 11/13/20 11/13/20 11/13/20 05:50 01:40 00:31 BUN 22 H 22 H 21 H Creatinine 1.5 H 1.9 H 1.9 H Estimated GFR (MDRD) 49 L 37 L 37 L 11/12/20 09:45 BUN 15 Creatinine 1.0 Estimated GFR (MDRD) 78 L Vancomycin Monitoring 11/25/20 11/23/20 08:21 12:15 Vancomycin Trough 15.7 9.4 L Cultures 11/20/20 08:08 Blood - Right Arm Blood Culture - Final NO GROWTH AFTER 5 DAYS 04/09/21 11:00 Blood - Left Hand Blood Culture - Preliminary NO GROWTH AFTER 2 DAYS 11/20/20 08:26 Blood - Right Arm Blood Culture - Preliminary 11/22/20 09:40 Blood Blood Culture - Preliminary NO GROWTH AFTER 2 DAYS 11/20/20 08:26 Blood - Right Arm Blood Culture (PCR) - Final Monitoring plan: Daily serum creatinine, Suggest ongoing fluid replacement Areas for additional monitoring: IV to PO when appropriate, Therapy de- escalation based on culture results Pharmacy recommendation: Continue current regime
--- NOTE | 2020-11-25 16:37 | PROVIDER PROGRESS NOTE ---
Subjective - Prog Note Date Prog Note Date: 11/25/20 - Subjective Pt reports feeling: No change (no complaints) Objective - Vital Signs/Intake & Output Reviewed Vital Signs: Yes Intake & Output: Intake & Output 11/22/20 11/23/20 11/24/20 11/25/20 23:59 23:59 23:59 23:59 Intake Total 5025 4428.75 5114.184 2910 Output Total 1835 1890 5585 3870 Balance 3190 2538.75 -470.816 -960 - Objective General Appearance: positive: No acute distress, Alert Respiratory: positive: No respiratory distress Abdomen: positive: Non-tender, No distention, Other (drains small brown bloody) - Lab Results Fish Bones: 11/25/20 05:52 11/25/20 05:52 Other Labs: Lab Results x24hrs 11/25/20 11/25/20 11/25/20 Range/Units 08:21 05:52 05:52 WBC (4.8-10.8) x10^3/uL RBC (4.70-6.10) 10^6/uL Hgb (14.0-18.0) g/dL Hct (42.0-52.0) % MCV (80.0-94.0) fL MCH (27.0-31.0) pg MCHC (32.0-36.0) g/dL RDW (12.0-15.0) % Plt Count (130-450) 10^3/uL MPV (7.4-11.4) fL Neut # (Auto) Lymph # (Auto) [place] # (Auto) Eos # (Auto) Baso # (Auto) Absolute Nucleated RBC Total Counted Band Neuts % (Manual) (0 - 10) % Abnorm Lymph % (Manual) % Metamyelocytes % ( - 0) % Myelocytes % ( - 0) % Plasma Cell % (Manual) % Nucleated RBC % Neutrophils # (Manual) (1.5-6.6) 10^3/uL Lymphocytes # (Manual) (1.5-3.5) 10^3/uL Monocytes # (Manual) (0.0-1.0) 10^3/uL Eosinophils # (Manual) (0-0.7) 10^3/uL Basophils # (Manual) (0-0.1) 10^3/uL Differential Comment Manual Slide Review WBC Morphology (NORMAL) Platelet Estimate (NORMAL) Platelet Morphology (NORMAL) RBC Morph Micro Appear (NORMAL) Sodium 136 (135-145) mmol/L Potassium 3.3 L (3.5-5.0) mmol/L Chloride 105 (101-111) mmol/L Carbon Dioxide 24 (21-32) mmol/L Anion Gap 7.0 (6-13) BUN 9 (6-20) mg/dL Creatinine 0.7 (0.6-1.2) mg/dL Estimated GFR (MDRD) 118 (>89) Glucose 127 H (70-100) mg/dL Calcium 8.0 L (8.5-10.3) mg/dL Prealbumin 7 L (18-45) mg/dL Triglycerides 119 ( - 149) mg/dL Last Dose Date 11/25/20 Last Dose Time 0330 Vancomycin Trough 15.7 (10.0-20.0) ug/mL 11/25/20 Range/Units 05:52 WBC 18.6 H (4.8-10.8) x10^3/uL RBC 2.88 L (4.70-6.10) 10^6/uL Hgb 8.3 L (14.0-18.0) g/dL Hct 25.7 L (42.0-52.0) % MCV 89.2 (80.0-94.0) fL MCH 28.8 (27.0-31.0) pg MCHC 32.3 (32.0-36.0) g/dL RDW 14.6 (12.0-15.0) % Plt Count 644 H (130-450) 10^3/uL MPV 10.1 (7.4-11.4) fL Neut # (Auto) Not Reportable Lymph # (Auto) Not Reportable [place] # (Auto) Not Reportable Eos # (Auto) Not Reportable Baso # (Auto) Not Reportable Absolute Nucleated RBC Not Reportable Total Counted 100 Band Neuts % (Manual) 3 (0 - 10) % Abnorm Lymph % (Manual) 0 % Metamyelocytes % 2 H ( - 0) % Myelocytes % 1 H ( - 0) % Plasma Cell % (Manual) 1 % Nucleated RBC % Not Reportable Neutrophils # (Manual) 14.0 H (1.5-6.6) 10^3/uL Lymphocytes # (Manual) 3.0 (1.5-3.5) 10^3/uL Monocytes # (Manual) 0.9 (0.0-1.0) 10^3/uL Eosinophils # (Manual) 0.0 (0-0.7) 10^3/uL Basophils # (Manual) 0.0 (0-0.1) 10^3/uL Differential Comment MANUAL DIFFERENTIAL Manual Slide Review Indicated WBC Morphology NORMAL APPEARANCE (NORMAL) Platelet Estimate INCREASED (>450,000) (NORMAL) Platelet Morphology NORMAL APPEARANCE (NORMAL) RBC Morph Micro Appear 1+ POLYCHROMASIA (NORMAL) Sodium (135-145) mmol/L Potassium (3.5-5.0) mmol/L Chloride (101-111) mmol/L Carbon Dioxide (21-32) mmol/L Anion Gap (6-13) BUN (6-20) mg/dL Creatinine (0.6-1.2) mg/dL Estimated GFR (MDRD) (>89) Glucose (70-100) mg/dL Calcium (8.5-10.3) mg/dL Prealbumin (18-45) mg/dL Triglycerides ( - 149) mg/dL Last Dose Date Last Dose Time Vancomycin Trough (10.0-20.0) ug/mL Sepsis Event Note (H) - Evaluation Current Stage of Sepsis: Sepsis Possible source of Sepsis: positive: GI tract/intra-abdominal - Sepsis Criteria Sepsis Criteria: Recorded Temperature greater than 38.3C or Less than 36C, Recorded Heart Rate greater than 90 bpm, WBC count greater than 12,000 or less t tor[place] 4000 Assessment/Plan - Problem List (1) Status post reversal of ileostomy Impression: daily gradual progress. continue present care
[2020-11-25] MEDS: PPN (CLINIMIX 4.25/5) 2,000 ML with MULTIVITAMIN 10 ML, TRACE ELEMENTS 1 ML, SODIUM CHL... IV SCH ×8 (18:17)
[2020-11-25] MEDS: FAT EMULSION 20% 250 ML IV SCH (18:17)
[2020-11-26] MEDS: methocarbamoL 500 MG TABLET PO SCH ×4 (00:47→18:12)
[2020-11-26] MEDS: oxyCODONE 5 MG TABLET PO PRN ×5 (00:48→22:20)
[2020-11-26] MEDS: ACETAMINOPHEN 500 MG TABLET PO PRN ×5 (00:48→22:20)
[2020-11-26] MEDS: VANCOMYCIN INJ 1 GM, VANCOMYCIN INJ 500 MG in SODIUM CHLORIDE 0.9% 500 ML IV SCH (01:07)
[2020-11-26] MEDS: SODIUM CHLORIDE FLUSH 0.9% 10 ML SYRINGE IVP SCH ×3 (01:08→18:14)
[2020-11-26] MEDS: PIPERACILLIN/TAZOBACTAM 3.375 GM in SODIUM CHLORIDE 0.9% MINIBAG 100 ML IV SCH ×3 (04:28→19:51)
[2020-11-26 05:31] LABS: MEAN PLATELET VOLUME 9.6 fL (7.4-11.4)
[2020-11-26 05:34] LABS: BASOPHILS % (AUTO) 0.4 %; EOSINOPHILS % (AUTO) 0.9 %; HCT - HEMATOCRIT 26.8 % (42.0-52.0); HGB - HEMOGLOBIN 8.6 g/dL (14.0-18.0); LYMPHOCYTES % (AUTO) 10.5 %; MEAN CORPUSCULAR HEMOGLOBIN 28.7 pg (27.0-31.0); MEAN CORPUSCULAR HGB CONC 32.1 g/dL (32.0-36.0); MEAN CORPUSCULAR VOLUME 89.3 fL (80.0-94.0); MONOCYTES % (AUTO) 5.7 %; NEUTROPHILS % (AUTO) 76.3 %; PLT - PLATELET COUNT 683 10^3/uL (130-450); RED CELL DISTRIBUTION WIDTH 14.6 % (12.0-15.0); WHITE BLOOD COUNT 19.3 x10^3/uL (4.8-10.8)
[2020-11-26 05:35] LABS: ABNORMAL LYMPHS % (MANUAL) 0 %
[2020-11-26 05:42] LABS: CALCIUM 8.1 mg/dL (8.5-10.3); CREATININE 0.6 mg/dL (0.6-1.2); POTASSIUM 3.7 mmol/L (3.5-5.0)
[2020-11-26 05:48] LABS: BAND NEUTROPHILS % (MANUAL) 2 %; EOSINOPHILS # (MANUAL) 0.2 10^3/uL (0-0.7); LYMPHOCYTES # (MANUAL) 1.4 10^3/uL (1.5-3.5); LYMPHOCYTES % (MANUAL) 7 %; METAMYELOCYTES % (MANUAL) 1 %; MONOCYTES # (MANUAL) 0.8 10^3/uL (0.0-1.0); MYELOCYTES % (MANUAL) 1 %; NEUTROPHILS # (MANUAL) 16.6 10^3/uL (1.5-6.6)
[2020-11-26 05:50] LABS: DIFFERENTIAL COMMENT MANUAL DIFFERENTIAL; PLATELET ESTIMATE, MANUAL INCREASED (>450,000) (NORMAL); PLATELET MORPHOLOGY NORMAL APPEARANCE (NORMAL); RBC MORPHOLOGY (MULTIPLE) NORMAL APPEARANCE (NORMAL); WBC MORPHOLOGY (MULTIPLE) NORMAL APPEARANCE (NORMAL)
--- NOTE | 2020-11-26 07:32 | PROVIDER PROGRESS NOTE ---
Subjective - Prog Note Date Prog Note Date: 11/26/20 - Subjective Subjective: He continues to complain of pain at the site of the drain over the right abdomen. The pain is about a 3-4 out of 10. He otherwise states he has no pain. He has not had a bowel movement today. He is passing gas. Has been tolerating a diet. Current Medications - Current Medications Current Medications: Active Medications Acetaminophen (Acetaminophen 500 Mg Tablet) 500 mg PO Q4HR PRN PRN Reason: Pain or Fever > 38C (100.4F) Last Admin: 11/26/20 00:48 Dose: 500 mg Documented by: Amlodipine Besylate (Amlodipine 5 Mg Tablet) 5 mg PO DAILY [facility] Last Admin: 11/25/20 10:13 Dose: 5 mg Documented by: Heparin Sodium (Porcine) (Heparin 5,000 Unit/Ml Vial) 5,000 unit SUBQ BID [facility] Last Admin: 11/25/20 21:09 Dose: 5,000 unit Documented by: Fluconazole (Diflucan 200 Mg/100 Ml) 100 mls @ 100 mls/hr IV DAILY [facility] Last Infusion: 11/25/20 12:41 Dose: Infused Documented by: Piperacillin Sod/Tazobactam (Sod 3.375 gm/ Sodium Chloride) 100 mls @ 25 mls/hr IV Q8H [facility] Last Admin: 11/26/20 04:28 Dose: 25 mls/hr Documented by: Multivitamins 10 ml/ TRACE ELEMENTS 1 ml/ Sodium Chloride 70 meq/ Potassium Chloride 15 meq/ Calcium Gluconate 2,000 mg/ Magnesium Sulfate 1.25 gm/Potassium Phosphate 30 mmol/Amino Acids/Dextrose 2,068.5 mls @ 83 mls/hr IV Q24H [facility]; Protocol Last Admin: 11/25/20 18:17 Dose: 83 mls/hr Documented by: Fat Emulsion Intravenous (Intralipid 20%) 250 mls @ 21 mls/hr IV Q24H [facility] Last Infusion: 11/26/20 06:33 Dose: Infused Documented by: Vancomycin HCl 1 gm/Vancomycin HCl 500 mg/ Sodium Chloride 500 mls @ 250 mls/hr IV Q8H [facility] Last Infusion: 11/26/20 03:19 Dose: Infused Documented by: Methocarbamol (Methocarbamol 500 Mg Tablet) 500 mg PO Q6HR [facility] Last Admin: 11/26/20 06:57 Dose: Not Given Documented by: Mineral Oil (Min Oil/Dimethicon/Coconut Oil 92 Gm Tube) 1 applic TOP PRN PRN PRN Reason: Skin Care Last Admin: 11/16/20 20:52 Dose: 1 applic Documented by: Ondansetron HCl (Ondansetron 4 Mg/2 Ml Vial) 4 mg IVP Q6HR PRN PRN Reason: Nausea / Vomiting Last Admin: 11/21/20 19:13 Dose: 4 mg Documented by: Oxycodone HCl (Oxycodone 5 Mg Tablet) 5 mg PO Q4HR PRN PRN Reason: PAIN Last Admin: 11/26/20 00:48 Dose: 5 mg Documented by: Pregabalin (Pregabalin 100 Mg Capsule) 100 mg PO BID [facility] Last Admin: 11/25/20 21:10 Dose: 100 mg Documented by: Simethicone (Simethicone Chew 80 Mg Tablet) 80 mg PO 0900,1300,1800,2100 [facility] Last Admin: 11/25/20 21:10 Dose: 80 mg Documented by: Sodium Chloride (Sodium Chloride Flush 0.9% 10 Ml Syringe) 10 ml IVP 0100,0900,1700 [facility] Last Admin: 11/26/20 01:08 Dose: 10 ml Documented by: Sodium Chloride (Sodium Chloride Flush 0.9% 10 Ml Syringe) 10 ml IVP PRN PRN PRN Reason: NEEDED PER PROVIDER ORDERS Last Admin: 11/25/20 03:33 Dose: 10 ml Documented by: Sodium Chloride (Sodium Chloride Flush 0.9% 10 Ml Syringe) 20 ml IVP PRN PRN PRN Reason: After Blood Draw Last Admin: 11/14/20 06:17 Dose: 20 ml Documented by: Tramadol HCl (Tramadol 50 Mg Tablet) 50 mg PO Q4HR PRN PRN Reason: PAIN Last Admin: 11/19/20 20:17 Dose: 50 mg Documented by: Vancomycin HCl (Vancomycin 125 Mg Capsule) 500 mg PO QID [facility] Stop: 11/28/20 23:59 Last Admin: 11/25/20 21:10 Dose: 500 mg Documented by: Acetaminophen [Tylenol] 500 mg PO DAILY 11/12/20 Objective - Vital Signs/Intake & Output Reviewed Vital Signs: Yes Vital Signs: Vital Signs x48h Temp Pulse Resp BP Pulse Ox 11/26/20 00:44 36.8 C 88 17 131/79 H 94 Intake & Output: Intake & Output 11/23/20 11/24/20 11/25/20 11/26/20 23:59 23:59 23:59 23:59 Intake Total 4428.75 5114.184 6099.55 1090 Output Total 1890 5522 5548 2607 Balance 2538.75 -470.816 579.55 -1517 - Objective General Appearance: positive: No acute distress, Alert Eyes Bilateral: positive: Normal inspection, Conjunctivae nml ENT: positive: ENT inspection nml Neck: positive: Nml inspection Respiratory: positive: No respiratory distress. negative: Wheezes, Rales Cardiovascular: positive: Regular rate & rhythm, No murmur. negative: Tachycardia Abdomen: positive: No distention, Tenderness (Mild tenderness in right upper quadrant at the site of the drain.), Other (Drain in place in right upper quadrant. Minimal output.). negative: Guarding, Rebound Skin: positive: Warm, Dry Extremities: positive: No pedal edema Neurologic/Psychiatric: negative: Disoriented to person, Disoriented to place - Lab Results Fish Bones: 11/26/20 05:25 11/26/20 05:25 Other Labs: Lab Results x24hrs 11/26/20 11/26/20 11/25/20 Range/Units 05:25 05:25 08:21 WBC 19.3 H (4.8-10.8) x10^3/uL RBC 3.00 L (4.70-6.10) 10^6/uL Hgb 8.6 L (14.0-18.0) g/dL Hct 26.8 L (42.0-52.0) % MCV 89.3 (80.0-94.0) fL MCH 28.7 (27.0-31.0) pg MCHC 32.1 (32.0-36.0) g/dL RDW 14.6 (12.0-15.0) % Plt Count 683 H (130-450) 10^3/uL MPV 9.6 (7.4-11.4) fL Neut # (Auto) Not Reportable Lymph # (Auto) Not Reportable [place] # (Auto) Not Reportable Eos # (Auto) Not Reportable Baso # (Auto) Not Reportable Absolute Nucleated RBC Not Reportable Total Counted 100 Band Neuts % (Manual) 2 (0 - 10) % Abnorm Lymph % (Manual) 0 % Metamyelocytes % 1 H ( - 0) % Myelocytes % 1 H ( - 0) % Plasma Cell % (Manual) % Nucleated RBC % Not Reportable Neutrophils # (Manual) 16.6 H (1.5-6.6) 10^3/uL Lymphocytes # (Manual) 1.4 L (1.5-3.5) 10^3/uL Monocytes # (Manual) 0.8 (0.0-1.0) 10^3/uL Eosinophils # (Manual) 0.2 (0-0.7) 10^3/uL Basophils # (Manual) 0.0 (0-0.1) 10^3/uL Differential Comment MANUAL DIFFERENTIAL WBC Morphology NORMAL APPEARANCE (NORMAL) Platelet Estimate INCREASED (>450,000) (NORMAL) Platelet Morphology NORMAL APPEARANCE (NORMAL) RBC Morph Micro Appear NORMAL APPEARANCE (NORMAL) Sodium 135 (135-145) mmol/L Potassium 3.7 (3.5-5.0) mmol/L Chloride 106 (101-111) mmol/L Carbon Dioxide 21 (21-32) mmol/L Anion Gap 8.0 (6-13) BUN 10 (6-20) mg/dL Creatinine 0.6 (0.6-1.2) mg/dL Estimated GFR (MDRD) 140 (>89) Glucose 132 H (70-100) mg/dL Calcium 8.1 L (8.5-10.3) mg/dL Prealbumin (18-45) mg/dL Triglycerides ( - 149) mg/dL Last Dose Date 11/25/20 Last Dose Time 0330 Vancomycin Trough 15.7 (10.0-20.0) ug/mL 11/25/20 11/25/20 Range/Units 05:52 05:52 WBC (4.8-10.8) x10^3/uL RBC (4.70-6.10) 10^6/uL Hgb (14.0-18.0) g/dL Hct (42.0-52.0) % MCV (80.0-94.0) fL MCH (27.0-31.0) pg MCHC (32.0-36.0) g/dL RDW (12.0-15.0) % Plt Count (130-450) 10^3/uL MPV (7.4-11.4) fL Neut # (Auto) Not Reportable Lymph # (Auto) Not Reportable [place] # (Auto) Not Reportable Eos # (Auto) Not Reportable Baso # (Auto) Not Reportable Absolute Nucleated RBC Not Reportable Total Counted 100 Band Neuts % (Manual) 3 (0 - 10) % Abnorm Lymph % (Manual) 0 % Metamyelocytes % 2 H ( - 0) % Myelocytes % 1 H ( - 0) % Plasma Cell % (Manual) 1 % Nucleated RBC % Not Reportable Neutrophils # (Manual) 14.0 H (1.5-6.6) 10^3/uL Lymphocytes # (Manual) 3.0 (1.5-3.5) 10^3/uL Monocytes # (Manual) 0.9 (0.0-1.0) 10^3/uL Eosinophils # (Manual) 0.0 (0-0.7) 10^3/uL Basophils # (Manual) 0.0 (0-0.1) 10^3/uL Differential Comment MANUAL DIFFERENTIAL WBC Morphology NORMAL APPEARANCE (NORMAL) Platelet Estimate INCREASED (>450,000) (NORMAL) Platelet Morphology NORMAL APPEARANCE (NORMAL) RBC Morph Micro Appear 1+ POLYCHROMASIA (NORMAL) Sodium (135-145) mmol/L Potassium (3.5-5.0) mmol/L Chloride (101-111) mmol/L Carbon Dioxide (21-32) mmol/L Anion Gap (6-13) BUN (6-20) mg/dL Creatinine (0.6-1.2) mg/dL Estimated GFR (MDRD) (>89) Glucose (70-100) mg/dL Calcium (8.5-10.3) mg/dL Prealbumin 7 L (18-45) mg/dL Triglycerides 119 ( - 149) mg/dL Last Dose Date Last Dose Time Vancomycin Trough (10.0-20.0) ug/mL ABX Reporting Has patient been on IV antibiotics over the past 48 hours?: Yes Sepsis Event Note (H) - Evaluation Current Stage of Sepsis: Sepsis Possible source of Sepsis: positive: GI tract/intra-abdominal - Sepsis Criteria Sepsis Criteria: Recorded Temperature greater than 38.3C or Less than 36C, Recorded Heart Rate greater than 90 bpm, WBC count greater than 12,000 or less than 4000 Assessment/Plan - Problem List (1) Sepsis Impression: This is likely secondary to the intra-abdominal abscess as well as the C. difficile. He has been a febrile now and his white count has been trending down although it is slightly increased today compared to yesterday. Overall it has been trending in the right direction. He did undergo drainage of the intra- abdominal abscess as mentioned below. Initial blood cultures grew gram-positive anaerobe in 1 out of 4 bottles. Repeat obtained 2 days later have been negative to date. He will remain on Zosyn and fluconazole IV. Vancomycin IV has been discontinued. We will continue him on oral vancomycin for the C. diffi cile. (2) Intra-abdominal abscess Impression: He underwent drainage of a large intra-abdominal abscess on November 21 at [facility]. Cultures are growing E. coli and Fusobacterium varium. He remains on Zosyn which will provide gram-negative and anaerobic coverage. We will discontinue the IV vancomycin. Will discuss with general surgery if the use of fluconazole is still warranted. (3) Status post reversal of ileostomy Impression: This has been complicated by a postop abdominal abscess. He is now postop day 13. Continue management as per general surgery. (4) C. difficile diarrhea Impression: This continues to improve. The last day of oral vancomycin is the 15th to complete 10 days of therapy. (5) Thrombocytosis Impression: Platelet count has been increasing each day. Suspect this is likely reactive due to the intra-abdominal abscess. I suspect this will begin to trend down as this is being treated. Given his anemia, will also check iron studies as this could be a contributing factor. Daily CBC. (6) Postoperative anemia Impression: His hemoglobin has been relatively stable over the past 48 hours. He has been no evidence of bleeding. He did require transfusion earlier on during this hospitalization. Given his thrombocytosis, will check iron studies to evaluate for iron deficiency anemia. (7) Hypertension Impression: His blood pressure is well controlled on amlodipine which we will continue. (8) Demand ischemia Impression: His troponin was elevated in the 400s earlier on during this admission. Echocardiogram did not reveal any wall motion normalities. This was felt to be demand ischemia.
[2020-11-26] MEDS: PREGABALIN 100 MG CAPSULE PO SCH ×2 (08:49→22:20)
[2020-11-26] MEDS: SIMETHICONE CHEW 80 MG TABLET PO SCH ×4 (08:49→22:20)
[2020-11-26] MEDS: amLODIPine 5 MG TABLET PO SCH (08:49)
[2020-11-26] MEDS: VANCOMYCIN 125 MG CAPSULE PO SCH ×4 (08:49→22:20)
[2020-11-26] MEDS: FLUCONAZOLE 200 MG/100 ML 100 ML IV SCH (08:50)
[2020-11-26] MEDS: HEPARIN 5,000 UNIT/ML VIAL SUBQ SCH ×2 (08:50→22:22)
--- NOTE | 2020-11-26 15:01 | PROVIDER PROGRESS NOTE ---
Subjective - Prog Note Date Prog Note Date: 11/26/20 - Subjective Pt reports feeling: No change (no complaints) Objective - Vital Signs/Intake & Output Reviewed Vital Signs: Yes Vital Signs: Vital Signs x48h Temp Pulse Resp BP Pulse Ox 11/26/20 08:04 36.9 C 88 16 138/79 H 98 Intake & Output: Intake & Output 11/23/20 11/24/20 11/25/20 11/26/20 23:59 23:59 23:59 23:59 Intake Total 4428.75 5114.184 6099.55 2370 Output Total 1890 5585 5520 2807 Balance 2538.75 -470.816 579.55 -437 - Objective General Appearance: positive: No acute distress, Alert ENT: positive: No signs of dehydration Respiratory: positive: No respiratory distress Abdomen: positive: Non-tender, No distention Neurologic/Psychiatric: positive: Oriented x3 - Lab Results Fish Bones: 11/26/20 05:25 11/26/20 05:25 Other Labs: Lab Results x24hrs 11/26/20 11/26/20 Range/Units 05:25 05:25 WBC 19.3 H (4.8-10.8) x10^3/uL RBC 3.00 L (4.70-6.10) 10^6/uL Hgb 8.6 L (14.0-18.0) g/dL Hct 26.8 L (42.0-52.0) % MCV 89.3 (80.0-94.0) fL MCH 28.7 (27.0-31.0) pg MCHC 32.1 (32.0-36.0) g/dL RDW 14.6 (12.0-15.0) % Plt Count 683 H (130-450) 10^3/uL MPV 9.6 (7.4-11.4) fL Neut # (Auto) Not Reportable Lymph # (Auto) Not Reportable [place] # (Auto) Not Reportable Eos # (Auto) Not Reportable Baso # (Auto) Not Reportable Absolute Nucleated RBC Not Reportable Total Counted 100 Band Neuts % (Manual) 2 (0 - 10) % Abnorm Lymph % (Manual) 0 % Metamyelocytes % 1 H ( - 0) % Myelocytes % 1 H ( - 0) % Nucleated RBC % Not Reportable Neutrophils # (Manual) 16.6 H (1.5-6.6) 10^3/uL Lymphocytes # (Manual) 1.4 L (1.5-3.5) 10^3/uL Monocytes # (Manual) 0.8 (0.0-1.0) 10^3/uL Eosinophils # (Manual) 0.2 (0-0.7) 10^3/uL Basophils # (Manual) 0.0 (0-0.1) 10^3/uL Differential Comment MANUAL DIFFERENTIAL WBC Morphology NORMAL APPEARANCE (NORMAL) Platelet Estimate INCREASED (>450,000) (NORMAL) Platelet Morphology NORMAL APPEARANCE (NORMAL) RBC Morph Micro Appear NORMAL APPEARANCE (NORMAL) Sodium 135 (135-145) mmol/L Potassium 3.7 (3.5-5.0) mmol/L Chloride 106 (101-111) mmol/L Carbon Dioxide 21 (21-32) mmol/L Anion Gap 8.0 (6-13) BUN 10 (6-20) mg/dL Creatinine 0.6 (0.6-1.2) mg/dL Estimated GFR (MDRD) 140 (>89) Glucose 132 H (70-100) mg/dL Calcium 8.1 L (8.5-10.3) mg/dL Sepsis Event Note (H) - Evaluation Current Stage of Sepsis: Sepsis Possible source of Sepsis: positive: GI tract/intra-abdominal - Sepsis Criteria Sepsis Criteria: Recorded Temperature greater than 38.3C or Less than 36C, Recorded Heart Rate greater than 90 bpm, WBC count greater than 12,000 or less than 4000 Assessment/Plan - Problem List (1) Status post reversal of ileostomy Impression: gradual improvement. continue present care
[2020-11-26] MEDS: PPN (CLINIMIX 4.25/5) 2,000 ML with MULTIVITAMIN 10 ML, TRACE ELEMENTS 1 ML, SODIUM CHL... IV SCH ×8 (19:13)
[2020-11-26] MEDS: FAT EMULSION 20% 250 ML IV SCH (19:18)
[2020-11-26] MEDS: SODIUM CHLORIDE FLUSH 0.9% 10 ML SYRINGE IVP PRN (19:51)
[2020-11-27] MEDS: methocarbamoL 500 MG TABLET PO SCH ×4 (00:06→18:05)
[2020-11-27] MEDS: SODIUM CHLORIDE FLUSH 0.9% 10 ML SYRINGE IVP SCH ×3 (00:10→17:17)
[2020-11-27] MEDS: PIPERACILLIN/TAZOBACTAM 3.375 GM in SODIUM CHLORIDE 0.9% MINIBAG 100 ML IV SCH ×3 (04:24→20:03)
[2020-11-27] MEDS: oxyCODONE 5 MG TABLET PO PRN ×5 (04:39→20:55)
[2020-11-27] MEDS: ACETAMINOPHEN 500 MG TABLET PO PRN ×5 (04:39→20:55)
[2020-11-27 04:43] LABS: BASOPHILS % (AUTO) 0.4 %; EOSINOPHILS % (AUTO) 0.9 %; HCT - HEMATOCRIT 27.1 % (42.0-52.0); HGB - HEMOGLOBIN 8.6 g/dL (14.0-18.0); LYMPHOCYTES % (AUTO) 9.8 %; MEAN CORPUSCULAR HEMOGLOBIN 28.5 pg (27.0-31.0); MEAN CORPUSCULAR HGB CONC 31.7 g/dL (32.0-36.0); MEAN CORPUSCULAR VOLUME 89.7 fL (80.0-94.0); MEAN PLATELET VOLUME 9.6 fL (7.4-11.4); MONOCYTES % (AUTO) 6.2 %; NEUTROPHILS % (AUTO) 76.1 %; PLT - PLATELET COUNT 741 10^3/uL (130-450); RED BLOOD COUNT 3.02 10^6/uL (4.70-6.10); RED CELL DISTRIBUTION WIDTH 14.8 % (12.0-15.0); WHITE BLOOD COUNT 17.7 x10^3/uL (4.8-10.8)
[2020-11-27 04:50] LABS: ABNORMAL LYMPHS % (MANUAL) 0 %
[2020-11-27 05:02] LABS: CALCIUM 8.3 mg/dL (8.5-10.3); CREATININE 0.7 mg/dL (0.6-1.2); POTASSIUM 4.3 mmol/L (3.5-5.0)
[2020-11-27 05:15] LABS: BAND NEUTROPHILS % (MANUAL) 5 %; LYMPHOCYTES # (MANUAL) 1.9 10^3/uL (1.5-3.5); LYMPHOCYTES % (MANUAL) 11 %; METAMYELOCYTES % (MANUAL) 1 %; MONOCYTES # (MANUAL) 1.1 10^3/uL (0.0-1.0); MYELOCYTES % (MANUAL) 2 %; NEUTROPHILS # (MANUAL) 14.2 10^3/uL (1.5-6.6); RBC MORPHOLOGY (MULTIPLE) NORMAL APPEARANCE (NORMAL)
[2020-11-27 05:16] LABS: DIFFERENTIAL COMMENT MANUAL DIFFERENTIAL; PLATELET ESTIMATE, MANUAL INCREASED (>450,000) (NORMAL)
--- NOTE | 2020-11-27 07:30 | PROVIDER PROGRESS NOTE ---
Subjective - Prog Note Date Prog Note Date: 11/27/20 - Subjective Subjective: He reports his pain is about a 3 out of 10 at rest but increases to a 5 out of 10 with any movement. The pain is predominantly at the site of the drains over the right side of his abdomen. Has had 1 bowel movement today. Tolerating a diet. Current Medications - Current Medications Current Medications: Active Medications Acetaminophen (Acetaminophen 500 Mg Tablet) 500 mg PO Q4HR PRN PRN Reason: Pain or Fever > 38C (100.4F) Last Admin: 11/27/20 08:37 Dose: 500 mg Documented by: Amlodipine Besylate (Amlodipine 5 Mg Tablet) 5 mg PO DAILY [facility] Last Admin: 11/27/20 08:36 Dose: 5 mg Documented by: Heparin Sodium (Porcine) (Heparin 5,000 Unit/Ml Vial) 5,000 unit SUBQ BID [facility] Last Admin: 11/27/20 08:44 Dose: 5,000 unit Documented by: Fluconazole (Diflucan 200 Mg/100 Ml) 100 mls @ 100 mls/hr IV DAILY [facility] Last Infusion: 11/27/20 10:07 Dose: Infused Documented by: Piperacillin Sod/Tazobactam (Sod 3.375 gm/ Sodium Chloride) 100 mls @ 25 mls/hr IV Q8H [facility] Last Infusion: 11/27/20 08:39 Dose: Infused Documented by: Multivitamins 10 ml/ TRACE ELEMENTS 1 ml/ Sodium Chloride 70 meq/ Potassium Chloride 15 meq/ Calcium Gluconate 2,000 mg/ Magnesium Sulfate 1.25 gm/Potassium Phosphate 30 mmol/Amino Acids/Dextrose 2,068.5 mls @ 83 mls/hr IV Q24H [facility]; Protocol Last Admin: 11/26/20 19:13 Dose: 83 mls/hr Documented by: Fat Emulsion Intravenous (Intralipid 20%) 250 mls @ 21 mls/hr IV Q24H [facility] Last Infusion: 11/27/20 08:19 Dose: Infused Documented by: Methocarbamol (Methocarbamol 500 Mg Tablet) 500 mg PO Q6HR [facility] Last Admin: 11/27/20 06:31 Dose: 500 mg Documented by: Mineral Oil (Min Oil/Dimethicon/Coconut Oil 92 Gm Tube) 1 applic TOP PRN PRN PRN Reason: Skin Care Last Admin: 11/16/20 20:52 Dose: 1 applic Documented by: Ondansetron HCl (Ondansetron 4 Mg/2 Ml Vial) 4 mg IVP Q6HR PRN PRN Reason: Nausea / Vomiting Last Admin: 11/21/20 19:13 Dose: 4 mg Documented by: Oxycodone HCl (Oxycodone 5 Mg Tablet) 5 mg PO Q4HR PRN PRN Reason: PAIN Last Admin: 11/27/20 08:36 Dose: 5 mg Documented by: Pregabalin (Pregabalin 100 Mg Capsule) 100 mg PO BID [facility] Last Admin: 11/27/20 07:58 Dose: 100 mg Documented by: Simethicone (Simethicone Chew 80 Mg Tablet) 80 mg PO 0900,1300,1800,2100 [facility] Last Admin: 11/27/20 08:37 Dose: 80 mg Documented by: Sodium Chloride (Sodium Chloride Flush 0.9% 10 Ml Syringe) 10 ml IVP 0100,0900,1700 [facility] Last Admin: 11/27/20 08:47 Dose: 10 ml Documented by: Sodium Chloride (Sodium Chloride Flush 0.9% 10 Ml Syringe) 10 ml IVP PRN PRN PRN Reason: NEEDED PER PROVIDER ORDERS Last Admin: 11/27/20 08:47 Dose: 10 ml Documented by: Sodium Chloride (Sodium Chloride Flush 0.9% 10 Ml Syringe) 20 ml IVP PRN PRN PRN Reason: After Blood Draw Last Admin: 11/14/20 06:17 Dose: 20 ml Documented by: Tramadol HCl (Tramadol 50 Mg Tablet) 50 mg PO Q4HR PRN PRN Reason: PAIN Last Admin: 11/19/20 20:17 Dose: 50 mg Documented by: Vancomycin HCl (Vancomycin 125 Mg Capsule) 500 mg PO QID [facility] Stop: 11/28/20 23:59 Last Admin: 11/27/20 07:57 Dose: 500 mg Documented by: Acetaminophen [Tylenol] 500 mg PO DAILY 11/12/20 Objective - Vital Signs/Intake & Output Reviewed Vital Signs: Yes Vital Signs: Vital Signs x48h Temp Pulse Resp BP Pulse Ox 11/26/20 23:37 37.2 C 91 18 117/65 94 Intake & Output: Intake & Output 11/24/20 11/25/20 11/26/20 11/27/20 23:59 23:59 23:59 23:59 Intake Total 5114.184 6099.55 5312.5 Output Total 5585 5520 5194 1645 Balance -470.816 579.55 118.5 -1645 - Objective General Appearance: positive: No acute distress, Alert Eyes Bilateral: positive: Normal inspection, Conjunctivae nml ENT: positive: ENT inspection nml Neck: positive: Nml inspection Respiratory: positive: No respiratory distress. negative: Wheezes, Rales Cardiovascular: positive: Regular rate & rhythm, No murmur. negative: Tachycardia Abdomen: positive: Tenderness (Right upper and lower quadrants.), Other (Right upper quadrant and lower quadrant drains in place with brown fluid output.). negative: Non-tender Skin: positive: Warm, Dry Extremities: positive: No pedal edema - Lab Results Fish Bones: 11/28/20 04:35 11/28/20 04:35 Other Labs: Lab Results x24hrs 11/27/20 11/27/20 Range/Units 04:35 04:35 WBC 17.7 H (4.8-10.8) x10^3/uL RBC 3.02 L (4.70-6.10) 10^6/uL Hgb 8.6 L (14.0-18.0) g/dL Hct 27.1 L (42.0-52.0) % MCV 89.7 (80.0-94.0) fL MCH 28.5 (27.0-31.0) pg MCHC 31.7 L (32.0-36.0) g/dL RDW 14.8 (12.0-15.0) % Plt Count 741 H (130-450) 10^3/uL MPV 9.6 (7.4-11.4) fL Neut # (Auto) Not Reportable Lymph # (Auto) Not Reportable [place] # (Auto) Not Reportable Eos # (Auto) Not Reportable Baso # (Auto) Not Reportable Absolute Nucleated RBC Not Reportable Total Counted 100 Band Neuts % (Manual) 5 (0 - 10) % Abnorm Lymph % (Manual) 0 % Metamyelocytes % 1 H ( - 0) % Myelocytes % 2 H ( - 0) % Nucleated RBC % Not Reportable Neutrophils # (Manual) 14.2 H (1.5-6.6) 10^3/uL Lymphocytes # (Manual) 1.9 (1.5-3.5) 10^3/uL Monocytes # (Manual) 1.1 H (0.0-1.0) 10^3/uL Eosinophils # (Manual) 0.0 (0-0.7) 10^3/uL Basophils # (Manual) 0.0 (0-0.1) 10^3/uL Differential Comment MANUAL DIFFERENTIAL Platelet Estimate INCREASED (>450,000) (NORMAL) RBC Morph Micro Appear NORMAL APPEARANCE (NORMAL) Sodium 135 (135-145) mmol/L Potassium 4.3 (3.5-5.0) mmol/L Chloride 102 (101-111) mmol/L Carbon Dioxide 24 (21-32) mmol/L Anion Gap 9.0 (6-13) BUN 13 (6-20) mg/dL Creatinine 0.7 (0.6-1.2) mg/dL Estimated GFR (MDRD) 118 (>89) Glucose 122 H (70-100) mg/dL Calcium 8.3 L (8.5-10.3) mg/dL Iron 15 L (45-182) ug/dL TIBC 193 L (250-450) ug/dL % Saturation 8 L (20-50) % Transferrin 138 L (180-329) mg/dL ABX Reporting Has patient been on IV antibiotics over the past 48 hours?: Yes Sepsis Event Note (H) - Evaluation Current Stage of Sepsis: Resolved Possible source of Sepsis: positive: GI tract/intra-abdominal - Sepsis Criteria Sepsis Criteria: Recorded Temperature greater than 38.3C or Less than 36C, Recorded Heart Rate greater than 90 bpm, WBC count greater than 12,000 or less than 4000 Assessment/Plan - Problem List (1) Sepsis Impression: This is felt to be secondary to the intra-abdominal abscess as well as possibly the C. difficile infection. He has remained afebrile now and his white count continues to decrease on a daily basis. He has been hemodynamically stable. Initial blood cultures grew gram-positive anaerobes 1 out of 4 bottles but repeat blood cultures have been negative to date. He remains on Zosyn IV. We will continue the Zosyn for the time being likely until his white count decreases closer to normal. Tomorrow is his last day of oral vancomycin for the C. difficile. (2) Intra-abdominal abscess Impression: Underwent drainage of a large abdominal abscess on November 21 at [facility]. Cultures are growing E. coli that is pansensitive and Fusobacterium varium. We have continued him on Zosyn IV for gram-negative and anaerobic coverage. We can likely discontinue the fluconazole as well but will defer to general surgery. We will also defer to general surgery regarding removal of the drains. (3) Status post reversal of ileostomy Impression: This was complicated by a postop abdominal abscess. He is now postop day 14. Management as per general surgery. (4) C. difficile diarrhea Impression: He continues to improve from a diarrhea standpoint. Tomorrow is the last day of oral vancomycin. (5) Thrombocytosis Impression: Platelet count continues to increase. This is likely reactive due to the intra- abdominal abscess. His iron studies were suggestive of acute phase reaction. We will continue to check a daily CBC. (6) Postoperative anemia Impression: His iron studies are suggestive of acute phase reaction. His hemoglobin has been stable and is increasing on a daily basis no evidence of bleeding. We will continue to monitor on a daily basis. (7) Hypertension Impression: Continue Amlodipine. (8) Demand ischemia Impression: His elevated troponins earlier on during this admission was demand ischemia.
[2020-11-27] MEDS: VANCOMYCIN 125 MG CAPSULE PO SCH ×4 (07:57→20:45)
[2020-11-27] MEDS: PREGABALIN 100 MG CAPSULE PO SCH ×2 (07:58→20:45)
[2020-11-27] MEDS: amLODIPine 5 MG TABLET PO SCH (08:36)
[2020-11-27] MEDS: SIMETHICONE CHEW 80 MG TABLET PO SCH ×4 (08:37→20:45)
[2020-11-27] MEDS: FLUCONAZOLE 200 MG/100 ML 100 ML IV SCH (08:37)
[2020-11-27] MEDS: HEPARIN 5,000 UNIT/ML VIAL SUBQ SCH ×2 (08:44→20:53)
[2020-11-27] MEDS: SODIUM CHLORIDE FLUSH 0.9% 10 ML SYRINGE IVP PRN ×3 (08:47→19:40)
--- NOTE | 2020-11-27 14:23 | PROVIDER PROGRESS NOTE ---
Subjective - Subjective Pt reports feeling: Improved (tolerating 50 % diet) Objective - Vital Signs/Intake & Output Reviewed Vital Signs: Yes Vital Signs: Vital Signs x48h Temp Pulse Resp BP Pulse Ox 11/27/20 08:27 36.5 C 83 18 123/73 97 Intake & Output: Intake & Output 11/24/20 11/25/20 11/26/20 11/27/20 23:59 23:59 23:59 23:59 Intake Total 5114.184 6099.55 5312.5 1170 Output Total 5585 5520 5194 2495 Balance -470.816 579.55 118.5 -1325 - Objective General Appearance: positive: No acute distress, Alert Respiratory: positive: No respiratory distress Abdomen: positive: Non-tender, No distention, Other (drain output thinner) Neurologic/Psychiatric: positive: Oriented x3 - Lab Results Fish Bones: 11/27/20 04:35 11/27/20 04:35 Other Labs: Lab Results x24hrs 11/27/20 11/27/20 Range/Units 04:35 04:35 WBC 17.7 H (4.8-10.8) x10^3/uL RBC 3.02 L (4.70-6.10) 10^6/uL Hgb 8.6 L (14.0-18.0) g/dL Hct 27.1 L (42.0-52.0) % MCV 89.7 (80.0-94.0) fL MCH 28.5 (27.0-31.0) pg MCHC 31.7 L (32.0-36.0) g/dL RDW 14.8 (12.0-15.0) % Plt Count 741 H (130-450) 10^3/uL MPV 9.6 (7.4-11.4) fL Neut # (Auto) Not Reportable Lymph # (Auto) Not Reportable [place] # (Auto) Not Reportable Eos # (Auto) Not Reportable Baso # (Auto) Not Reportable Absolute Nucleated RBC Not Reportable Total Counted 100 Band Neuts % (Manual) 5 (0 - 10) % Abnorm Lymph % (Manual) 0 % Metamyelocytes % 1 H ( - 0) % Myelocytes % 2 H ( - 0) % Nucleated RBC % Not Reportable Neutrophils # (Manual) 14.2 H (1.5-6.6) 10^3/uL Lymphocytes # (Manual) 1.9 (1.5-3.5) 10^3/uL Monocytes # (Manual) 1.1 H (0.0-1.0) 10^3/uL Eosinophils # (Manual) 0.0 (0-0.7) 10^3/uL Basophils # (Manual) 0.0 (0-0.1) 10^3/uL Differential Comment MANUAL DIFFERENTIAL Platelet Estimate INCREASED (>450,000) (NORMAL) RBC Morph Micro Appear NORMAL APPEARANCE (NORMAL) Sodium 135 (135-145) mmol/L Potassium 4.3 (3.5-5.0) mmol/L Chloride 102 (101-111) mmol/L Carbon Dioxide 24 (21-32) mmol/L Anion Gap 9.0 (6-13) BUN 13 (6-20) mg/dL Creatinine 0.7 (0.6-1.2) mg/dL Estimated GFR (MDRD) 118 (>89) Glucose 122 H (70-100) mg/dL Calcium 8.3 L (8.5-10.3) mg/dL Iron 15 L (45-182) ug/dL TIBC 193 L (250-450) ug/dL % Saturation 8 L (20-50) % Transferrin 138 L (180-329) mg/dL Sepsis Event Note (H) - Evaluation Current Stage of Sepsis: Resolved Possible source of Sepsis: positive: GI tract/intra-abdominal - Sepsis Criteria Sepsis Criteria: Recorded Temperature greater than 38.3C or Less than 36C, Recorded Heart Rate greater than 90 bpm, WBC count greater than 12,000 or less than 4000 Assessment/Plan - Problem List (1) Status post reversal of ileostomy Impression: continued slow improvement. wbc down today add nutrition supplements continue ppn until adequate oral intake
[2020-11-28] MEDS: SODIUM CHLORIDE FLUSH 0.9% 10 ML SYRINGE IVP SCH ×3 (00:09→17:04)
[2020-11-28] MEDS: methocarbamoL 500 MG TABLET PO SCH ×4 (00:13→18:05)
[2020-11-28] MEDS: oxyCODONE 5 MG TABLET PO PRN ×6 (00:25→21:57)
[2020-11-28] MEDS: ACETAMINOPHEN 500 MG TABLET PO PRN ×6 (00:29→21:57)
[2020-11-28] MEDS: PIPERACILLIN/TAZOBACTAM 3.375 GM in SODIUM CHLORIDE 0.9% MINIBAG 100 ML IV SCH ×3 (04:15→20:02)
[2020-11-28 04:52] LABS: BASOPHILS % (AUTO) 0.4 %; EOSINOPHILS % (AUTO) 0.7 %; HCT - HEMATOCRIT 28.1 % (42.0-52.0); HGB - HEMOGLOBIN 8.9 g/dL (14.0-18.0); LYMPHOCYTES % (AUTO) 11.6 %; MEAN CORPUSCULAR HEMOGLOBIN 28.5 pg (27.0-31.0); MEAN CORPUSCULAR HGB CONC 31.7 g/dL (32.0-36.0); MEAN CORPUSCULAR VOLUME 90.1 fL (80.0-94.0); MEAN PLATELET VOLUME 9.6 fL (7.4-11.4); MONOCYTES % (AUTO) 6.5 %; NEUTROPHILS % (AUTO) 74.9 %; PLT - PLATELET COUNT 711 10^3/uL (130-450); RED BLOOD COUNT 3.12 10^6/uL (4.70-6.10); RED CELL DISTRIBUTION WIDTH 14.7 % (12.0-15.0); WHITE BLOOD COUNT 18.4 x10^3/uL (4.8-10.8)
[2020-11-28 04:59] LABS: CALCIUM 8.6 mg/dL (8.5-10.3); CREATININE 0.8 mg/dL (0.6-1.2); POTASSIUM 4.3 mmol/L (3.5-5.0)
[2020-11-28 05:00] LABS: ABNORMAL LYMPHS % (MANUAL) 0 %
[2020-11-28 05:17] LABS: BAND NEUTROPHILS % (MANUAL) 7 %; DIFFERENTIAL COMMENT MANUAL DIFFERENTIAL; LYMPHOCYTES # (MANUAL) 2.4 10^3/uL (1.5-3.5); LYMPHOCYTES % (MANUAL) 13 %; METAMYELOCYTES % (MANUAL) 3 %; MONOCYTES # (MANUAL) 1.1 10^3/uL (0.0-1.0); MYELOCYTES % (MANUAL) 5 %; NEUTROPHILS # (MANUAL) 13.4 10^3/uL (1.5-6.6); PLATELET ESTIMATE, MANUAL INCREASED (>450,000) (NORMAL); RBC MORPHOLOGY (MULTIPLE) NORMAL APPEARANCE (NORMAL)
--- NOTE | 2020-11-28 07:33 | PROVIDER PROGRESS NOTE ---
Subjective - Prog Note Date Prog Note Date: 11/28/20 - Subjective Subjective: He continues to complain of pain in the right upper and lower quadrant. It is about 3 out of 10. He is no longer having diarrhea. Has been tolerating a diet without vomiting. Current Medications - Current Medications Current Medications: Active Medications Acetaminophen (Acetaminophen 500 Mg Tablet) 500 mg PO Q4HR PRN PRN Reason: Pain or Fever > 38C (100.4F) Last Admin: 11/28/20 08:36 Dose: 500 mg Documented by: Amlodipine Besylate (Amlodipine 5 Mg Tablet) 5 mg PO DAILY [facility] Last Admin: 11/28/20 08:36 Dose: 5 mg Documented by: Heparin Sodium (Porcine) (Heparin 5,000 Unit/Ml Vial) 5,000 unit SUBQ BID [facility] Last Admin: 11/28/20 08:36 Dose: 5,000 unit Documented by: Fluconazole (Diflucan 200 Mg/100 Ml) 100 mls @ 100 mls/hr IV DAILY [facility] Last Infusion: 11/28/20 10:06 Dose: Infused Documented by: Piperacillin Sod/Tazobactam (Sod 3.375 gm/ Sodium Chloride) 100 mls @ 25 mls/hr IV Q8H [facility] Last Infusion: 11/28/20 08:25 Dose: Infused Documented by: Methocarbamol (Methocarbamol 500 Mg Tablet) 500 mg PO Q6HR [facility] Last Admin: 11/28/20 06:09 Dose: 500 mg Documented by: Mineral Oil (Min Oil/Dimethicon/Coconut Oil 92 Gm Tube) 1 applic TOP PRN PRN PRN Reason: Skin Care Last Admin: 11/16/20 20:52 Dose: 1 applic Documented by: Ondansetron HCl (Ondansetron 4 Mg/2 Ml Vial) 4 mg IVP Q6HR PRN PRN Reason: Nausea / Vomiting Last Admin: 11/21/20 19:13 Dose: 4 mg Documented by: Oxycodone HCl (Oxycodone 5 Mg Tablet) 5 mg PO Q4HR PRN PRN Reason: PAIN Last Admin: 11/28/20 08:35 Dose: 5 mg Documented by: Pregabalin (Pregabalin 100 Mg Capsule) 100 mg PO BID [facility] Last Admin: 11/28/20 08:35 Dose: 100 mg Documented by: Simethicone (Simethicone Chew 80 Mg Tablet) 80 mg PO 0900,1300,1800,2100 [facility] Last Admin: 11/28/20 08:35 Dose: 80 mg Documented by: Sodium Chloride (Sodium Chloride Flush 0.9% 10 Ml Syringe) 10 ml IVP 0100,0900,1700 [facility] Last Admin: 11/28/20 08:44 Dose: 10 ml Documented by: Sodium Chloride (Sodium Chloride Flush 0.9% 10 Ml Syringe) 10 ml IVP PRN PRN PRN Reason: NEEDED PER PROVIDER ORDERS Last Admin: 11/27/20 19:40 Dose: 10 ml Documented by: Sodium Chloride (Sodium Chloride Flush 0.9% 10 Ml Syringe) 20 ml IVP PRN PRN PRN Reason: After Blood Draw Last Admin: 11/14/20 06:17 Dose: 20 ml Documented by: Tramadol HCl (Tramadol 50 Mg Tablet) 50 mg PO Q4HR PRN PRN Reason: PAIN Last Admin: 11/19/20 20:17 Dose: 50 mg Documented by: Vancomycin HCl (Vancomycin 125 Mg Capsule) 500 mg PO QID [facility] Stop: 11/28/20 23:59 Last Admin: 11/28/20 08:35 Dose: 500 mg Documented by: Acetaminophen [Tylenol] 500 mg PO DAILY 11/12/20 Objective - Vital Signs/Intake & Output Reviewed Vital Signs: Yes Vital Signs: Vital Signs x48h Temp Pulse Resp BP Pulse Ox 11/28/20 00:13 36.9 C 84 16 121/65 96 Intake & Output: Intake & Output 11/25/20 11/26/20 11/27/20 11/28/20 23:59 23:59 23:59 23:59 Intake Total 6099.55 5312.5 4139.35 340 Output Total 5520 5194 3355 1000 Balance 579.55 118.5 784.35 -660 - Objective General Appearance: positive: No acute distress, Alert, Mild distress Eyes Bilateral: positive: Conjunctivae nml ENT: positive: ENT inspection nml Neck: positive: Nml inspection Respiratory: positive: No respiratory distress Cardiovascular: positive: Regular rate & rhythm, No murmur. negative: Tac hycardia Abdomen: positive: Other (Patient declined abdominal exam. Drain is in place in the right upper and lower quadrants.) Skin: positive: Warm, Dry Extremities: positive: No pedal edema - Lab Results Fish Bones: 11/28/20 04:35 11/28/20 04:35 Other Labs: Lab Results x24hrs 11/28/20 11/28/20 Range/Units 04:35 04:35 WBC 18.4 H (4.8-10.8) x10^3/uL RBC 3.12 L (4.70-6.10) 10^6/uL Hgb 8.9 L (14.0-18.0) g/dL Hct 28.1 L (42.0-52.0) % MCV 90.1 (80.0-94.0) fL MCH 28.5 (27.0-31.0) pg MCHC 31.7 L (32.0-36.0) g/dL RDW 14.7 (12.0-15.0) % Plt Count 711 H (130-450) 10^3/uL MPV 9.6 (7.4-11.4) fL Neut # (Auto) Not Reportable Lymph # (Auto) Not Reportable [place] # (Auto) Not Reportable Eos # (Auto) Not Reportable Baso # (Auto) Not Reportable Absolute Nucleated RBC Not Reportable Total Counted 100 Band Neuts % (Manual) 7 (0 - 10) % Abnorm Lymph % (Manual) 0 % Metamyelocytes % 3 H ( - 0) % Myelocytes % 5 H ( - 0) % Nucleated RBC % Not Reportable Neutrophils # (Manual) 13.4 H (1.5-6.6) 10^3/uL Lymphocytes # (Manual) 2.4 (1.5-3.5) 10^3/uL Monocytes # (Manual) 1.1 H (0.0-1.0) 10^3/uL Eosinophils # (Manual) 0.0 (0-0.7) 10^3/uL Basophils # (Manual) 0.0 (0-0.1) 10^3/uL Differential Comment MANUAL DIFFERENTIAL Platelet Estimate INCREASED (>450,000) (NORMAL) RBC Morph Micro Appear NORMAL APPEARANCE (NORMAL) Sodium 135 (135-145) mmol/L Potassium 4.3 (3.5-5.0) mmol/L Chloride 100 L (101-111) mmol/L Carbon Dioxide 24 (21-32) mmol/L Anion Gap 11.0 (6-13) BUN 14 (6-20) mg/dL Creatinine 0.8 (0.6-1.2) mg/dL Estimated GFR (MDRD) 101 (>89) Glucose 113 H (70-100) mg/dL Calcium 8.6 (8.5-10.3) mg/dL ABX Reporting Has patient been on IV antibiotics over the past 48 hours?: Yes Sepsis Event Note (H) - Evaluation Current Stage of Sepsis: Resolved Possible source of Sepsis: positive: GI tract/intra-abdominal - Sepsis Criteria Sepsis Criteria: Recorded Temperature greater than 38.3C or Less than 36C, Recorded Heart Rate greater than 90 bpm, WBC count greater than 12,000 or less than 4000 Assessment/Plan - Problem List (1) Sepsis Impression: This is likely secondary to the intra-abdominal abscess. He has been a febrile since drainage of the abscess. His white count had been improving but today it is slightly increased and there are bands present. He has been hemodynamically stable. Initial blood cultures grew gram-positive anaerobes in 1 out of 4 bottl es but repeat cultures have been negative. He remains on Zosyn and fluconazole IV. Vancomycin IV has been discontinued. Today is his last day of oral vancomycin for the C. difficile. (2) Intra-abdominal abscess Impression: This is the source of his sepsis. He underwent drainage of a large abdominal abscess on November 21 at [facility]. Cultures are growing E. coli that is pansensitive and Fusobacterium varium. He remains on Zosyn IV for gram-negative and anaerobic coverage. Given his ongoing abdominal pain at the site of the drain and his increasing white count, agree with repeating a CT to evaluate the prior abscess. (3) Status post reversal of ileostomy Impression: This has been complicated by postop abdominal abscess. He is now postop day 15. Management as per general surgery. (4) C. difficile diarrhea Impression: His diarrhea has resolved. Today is last day of oral vancomycin. (5) Thrombocytosis Impression: His platelet count has been steadily increasing each day although today is the first day it is decreasing. Suspect this is likely reactive due to the abdominal abscess. His iron studies were suggestive of acute phase reaction rather than iron deficiency anemia. Agree with repeating imaging as mentioned above to ensure there is no other developing abscess. Continue with daily CBC. (6) Postoperative anemia Impression: His iron studies are suggestive of acute phase reaction. His hemoglobin has been stable and is increasing on a daily basis with no evidence of bleeding. (7) Hypertension Impression: His blood pressure is well controlled on amlodipine. (8) Demand ischemia Impression: His elevated troponin earlier on during this admission was consistent with demand ischemia. Echocardiogram showed no wall motion abnormalities.
[2020-11-28] MEDS: PREGABALIN 100 MG CAPSULE PO SCH ×2 (08:35→21:56)
[2020-11-28] MEDS: SIMETHICONE CHEW 80 MG TABLET PO SCH ×4 (08:35→21:56)
[2020-11-28] MEDS: VANCOMYCIN 125 MG CAPSULE PO SCH ×4 (08:35→21:57)
[2020-11-28] MEDS: HEPARIN 5,000 UNIT/ML VIAL SUBQ SCH ×2 (08:36→22:01)
[2020-11-28] MEDS: amLODIPine 5 MG TABLET PO SCH (08:36)
[2020-11-28] MEDS: FLUCONAZOLE 200 MG/100 ML 100 ML IV SCH (08:37)
[2020-11-28] MEDS ORDERED: IOPAMIDOL-300 50 ML VIAL ONE (15:33)
[2020-11-28] MEDS ORDERED: IOPAMIDOL-300 100 ML VIAL ONE ×2 (15:33→18:23)
--- NOTE | 2020-11-28 19:29 | CT Report ---
PROCEDURE: Abdomen/Pelvis W INDICATIONS: evaluate in follow up for abdominal abscess CONTRAST: IV CONTRAST: Isovue 300 ml: 100 PO CONTRAST: Isovue 300 ml50 TECHNIQUE: After the administration of oral and intravenous contrast, 5 mm thick sections acquired from the diap hragms to the symphysis. 5 mm thick coronal and sagittal reformats were acquired. For radiation dos e reduction, the following was used: automated exposure control, adjustment of mA and/or kV accordin g to patient size. COMPARISON: 11/20/2020 FINDINGS: Image quality: Excellent. ABDOMEN: Lung bases: Small right pleural effusion. Patchy bibasilar atelectasis, right greater than left. Hear t size is normal. Solid organs: Liver and spleen are normal in size and enhancement. There is mild gallbladder wall th ickening. Biliary system is non dilated. Pancreas enhances normally. No adrenal nodules. Kidneys d emonstrate normal size and enhancement, without hydronephrosis. There is a very thin subcapsular rig ht renal abscess. This was in the early stages of development on the previous study. Peritoneum and bowel: Distal colonic anastomotic clips. Small bowel clips. Interval placement of 2 pi gtail drains in a very large abdominal abscess, with significant interval decrease in size of the abs cess. However, a very large abscess remains. The pigtail drains are satisfactorily located. The absce ss measures approximately 28 cm in craniocaudal dimension. A pharmacy sales representative axial image, image 62/3 d emonstrates that the abscess measures 9.3 cm in transverse dimension and 10.8 cm in AP dimension. The re is a large amount of air present within the abscess, with a prominent air-fluid level, suggesting possible anastomotic leak. However, there is no high density within the abscess, and a leak is not po sitively identified. Nodes and vessels: No retroperitoneal or mesenteric adenopathy by size criteria. Aorta and inferior vena cava are normal in size. Miscellaneous: No ventral hernias. PELVIS: Genitourinary: Bladder wall thickness is normal. Miscellaneous: No inguinal hernias or adenopathy. Bones: No suspicious bony lesions. No vertebral body compression fractures. IMPRESSION: 1. Interval placement of 2 percutaneous abscess drains, with significant interval decrease in size of very large abdominal abscess. However, a very large abdominal abscess remains. 2. There is no positive documentation of an anastomotic leak on this study. However, one may be prese nt. 3. Very thin right subcapsular abscess. This is not of sufficient size for percutaneous drainage. 4. Small right pleural effusion, patchy bibasilar atelectasis, right greater than left. Reviewed by: José Stokes MD on 11/28/2020 7:28 PM PDT Approved by: José Stokes MD on 11/28/2020 7:28 PM PDT Station ID: [id number]
[2020-11-28] MEDS ORDERED: IOPAMIDOL-300 100 ML VIAL IVP ONE (20:29)
[2020-11-28] MEDS ORDERED: IOPAMIDOL-300 50 ML VIAL PO ONE (20:30)
[2020-11-29] MEDS: methocarbamoL 500 MG TABLET PO SCH ×4 (00:27→17:15)
[2020-11-29] MEDS: SODIUM CHLORIDE FLUSH 0.9% 10 ML SYRINGE IVP SCH ×3 (00:27→16:43)
[2020-11-29] MEDS: oxyCODONE 5 MG TABLET PO PRN ×5 (03:37→21:21)
[2020-11-29] MEDS: ACETAMINOPHEN 500 MG TABLET PO PRN ×5 (03:37→21:21)
[2020-11-29] MEDS: PIPERACILLIN/TAZOBACTAM 3.375 GM in SODIUM CHLORIDE 0.9% MINIBAG 100 ML IV SCH ×2 (03:37→12:36)
[2020-11-29 04:42] LABS: BASOPHILS % (AUTO) 0.4 %; EOSINOPHILS % (AUTO) 0.2 %; HCT - HEMATOCRIT 28.5 % (42.0-52.0); HGB - HEMOGLOBIN 8.7 g/dL (14.0-18.0); LYMPHOCYTES % (AUTO) 9.7 %; MEAN CORPUSCULAR HEMOGLOBIN 27.5 pg (27.0-31.0); MEAN CORPUSCULAR HGB CONC 30.5 g/dL (32.0-36.0); MEAN CORPUSCULAR VOLUME 90.2 fL (80.0-94.0); MEAN PLATELET VOLUME 9.8 fL (7.4-11.4); MONOCYTES % (AUTO) 5.7 %; NEUTROPHILS % (AUTO) 80.2 %; PLT - PLATELET COUNT 734 10^3/uL (130-450); RED BLOOD COUNT 3.16 10^6/uL (4.70-6.10); RED CELL DISTRIBUTION WIDTH 14.5 % (12.0-15.0); WHITE BLOOD COUNT 21.1 x10^3/uL (4.8-10.8)
[2020-11-29 04:49] LABS: ABNORMAL LYMPHS % (MANUAL) 0 %; BAND NEUTROPHILS % (MANUAL) 0 %
[2020-11-29 04:52] LABS: CALCIUM 9.1 mg/dL (8.5-10.3); CREATININE 0.9 mg/dL (0.6-1.2); POTASSIUM 4.4 mmol/L (3.5-5.0)
[2020-11-29 05:04] LABS: BASOPHILS # (MANUAL) 0.2 10^3/uL (0-0.1); BASOPHILS % (MANUAL) 1 %; LYMPHOCYTES # (MANUAL) 1.9 10^3/uL (1.5-3.5); LYMPHOCYTES % (MANUAL) 9 %; METAMYELOCYTES % (MANUAL) 1 %; MONOCYTES # (MANUAL) 1.5 10^3/uL (0.0-1.0); MYELOCYTES % (MANUAL) 1 %; NEUTROPHILS # (MANUAL) 17.1 10^3/uL (1.5-6.6)
[2020-11-29 05:05] LABS: DIFFERENTIAL COMMENT MANUAL DIFFERENTIAL; PLATELET ESTIMATE, MANUAL INCREASED (>450,000) (NORMAL); PLATELET MORPHOLOGY NORMAL APPEARANCE (NORMAL); RBC MORPHOLOGY (MULTIPLE) 2+ HYPOCHROMASIA (NORMAL); WBC MORPHOLOGY (MULTIPLE) NORMAL APPEARANCE (NORMAL)
--- NOTE | 2020-11-29 07:09 | PROVIDER PROGRESS NOTE ---
Assessment/Plan - Problem List (1) Sepsis Assessment/Plan: Likely secondary to intra-abdominal abscess. Drainage tubes in place with decreased drainage. Patient's white blood cell count today is 21. This is an increase from [address] scan of the abdomen/pelvis done yesterday showed Presence of a very large abdominal abscess. Dr. Avila will see the patient later in the day. He plans on flushing the drainage tubes and connecting to suction with anticipated increase output. Patient continues on Zosyn. IV and oral vancomycin discontinued. He completed a regimen for C. diff on 11/28/20 (2) Intra-abdominal abscess Assessment/Plan: Drainage tubes in place with decreased drainage. Patient's white blood cell count today is 21. This is an increase from [address] scan of the abdomen/pelvis done yesterday showed Presence of a very large abdominal abscess. Dr. Avila will see the patient later in the day. He plans on flushing the drainage tubes and connecting to suction with anticipated increase output. Patient continues on Zosyn. IV and oral vancomycin discontinued. He completed a regimen for C. diff on 11/28/20 (3) Status post reversal of ileostomy Assessment/Plan: This has been complicated by postop abdominal abscess. He is now postop day 16. Management as per general surgery. (4) C. difficile diarrhea Assessment/Plan: His diarrhea has resolved. Last day of oral vancomycin was 11/28/20. (5) Postoperative anemia Assessment/Plan: His iron studies are suggestive of acute phase reaction. His hemoglobin has been stable and is increasing on a daily basis with no evidence of bleeding. (6) Hypertension Assessment/Plan: His blood pressure is well controlled on amlodipine. (7) Demand ischemia Assessment/Plan: His elevated troponin earlier on during this admission was consistent with demand ischemia. Echocardiogram showed no wall motion abnormalities. - Current Meds Current Meds: Current Medications Generic Name Dose Route Start Last Admin Trade Name Freq PRN Reason Stop Dose Admin Acetaminophen 500 mg 11/15/20 17:20 11/29/20 03:37 Acetaminophen 500 Mg Tablet PO 500 mg Q4HR PRN Administration Pain or Fever > 38C (100.4F) Amlodipine Besylate 5 mg 11/15/20 16:16 11/28/20 08:36 Amlodipine 5 Mg Tablet PO 5 mg DAILY [facility] Administration Heparin Sodium (Porcine) 5,000 unit 11/19/20 21:00 11/28/20 22:01 Heparin 5,000 Unit/Ml Vial SUBQ 5,000 unit BID ASHWIN Administration Piperacillin Sod/Tazobactam 100 mls @ 25 mls/hr 11/22/20 01:00 11/29/20 03:37 Sod 3.375 gm/ Sodium Chloride IV 25 mls/hr Q8H A[facility]WIN Administration Methocarbamol 500 mg 11/12/20 18:00 11/29/20 05:47 Methocarbamol 500 Mg Tablet PO 500 mg Q6HR A[facility]WIN Administration Mineral Oil 1 applic 11/16/20 16:23 11/16/20 20:52 Min Oil/Dimethicon/Coconut Oil 92 Gm Tube TOP 1 applic PRN PRN Administration Skin Care Ondansetron HCl 4 mg 11/12/20 17:01 11/21/20 19:13 Ondansetron 4 Mg/2 Ml Vial IVP 4 mg Q6HR PRN Administration Nausea / Vomiting Oxycodone HCl 5 mg 11/16/20 11:35 11/29/20 03:37 Oxycodone 5 Mg Tablet PO 5 mg Q4HR PRN Administration PAIN Pregabalin 100 mg 11/12/20 21:00 11/28/20 21:56 Pregabalin 100 Mg Capsule PO 100 mg BID A[facility]WIN Administration Simethicone 80 mg 11/19/20 20:00 11/28/20 21:56 Simethicone Chew 80 Mg Tablet PO 80 mg 0900,1300,1800,2100 [facility] Administration Sodium Chloride 10 ml 11/13/20 09:00 11/29/20 00:27 Sodium Chloride Flush 0.9% 10 Ml Syringe IVP 10 ml 0100,0900,1700 [facility] Administration Sodium Chloride 10 ml 11/13/20 01:35 11/27/20 19:40 Sodium Chloride Flush 0.9% 10 Ml Syringe IVP 10 ml PRN PRN Administration NEEDED PER PROVIDER ORDERS Sodium Chloride 20 ml 11/13/20 04:04 11/14/20 06:17 Sodium Chloride Flush 0.9% 10 Ml Syringe IVP 20 ml PRN PRN Administration After Blood Draw Tramadol HCl 50 mg 11/19/20 19:39 11/19/20 20:17 Tramadol 50 Mg Tablet PO 50 mg Q4HR PRN Administration PAIN - Lab Result Fish Bone Diagrams: 11/29/20 04:05 11/29/20 04:05 - Additional Planning My Orders: My Active Orders 11/30/20 05:00 BMP - BASIC METABOLIC PANEL [CHEM] DAILYLAB CBC - COMP BLD CT W/AUTO DIFF [HEME] DAILYLAB Subjective - Subjective Patient Reports: Other (Resting comfortably in bed. Appears dejected. Denies any abdominal pain except for the point of insertion of percutaneous drainage. Reports soft bowel movements with regular frequency. Decreased drainage in tubes.) Objective Vital Signs: Vital Signs - 24 hr 11/28/20 11/28/20 11/29/20 07:57 15:58 00:40 Temperature 36.9 C 36.9 C 37.6 C Heart Rate [ 82 89 91 Brachial] Respiratory 16 16 18 Rate Blood Pressure 123/73 125/75 126/63 [Right Brachial artery] O2 Saturation 96 97 96 Oxygen O2 Source Room air I&O (Last 24 Hrs): Intake and Output Totals x24h 11/27/20 11/28/20 11/29/20 23:59 23:59 23:59 Intake Total 4139.35 1000 100 Output Total 3355 2990 1075 Balance 784.35 -1990 -975 General: Alert, Oriented x3, Moderate distress (at site of insertion of drainage tubes) HEENT: PERRLA, EOMI Neck: No JVD Neuro: Alert, Non Focal, Oriented Times 3 Cardiovascular: Regular rate Abdomen: Normal bowel sounds, Soft, Other (Tenderness at site of insertion of percutaneous drainage tube) Extremities: No clubbing, No cyanosis, No edema Skin: No rashes, No breakdown - Results Results: Laboratory Results WBC 21.1 x10^3/uL (4.8-10.8) H 11/29/20 04:05 RBC 3.16 10^6/uL (4.70-6.10) L 11/29/20 04:05 Hgb 8.7 g/dL (14.0-18.0) L 11/29/20 04:05 Hct 28.5 % (42.0-52.0) L 11/29/20 04:05 MCV 90.2 fL (80.0-94.0) 11/29/20 04:05 MCH 27.5 pg (27.0-31.0) 11/29/20 04:05 MCHC 30.5 g/dL (32.0-36.0) L 11/29/20 04:05 RDW 14.5 % (12.0-15.0) 11/29/20 04:05 Plt Count 734 10^3/uL (130-450) H 11/29/20 04:05 MPV 9.8 fL (7.4-11.4) 11/29/20 04:05 Neut # (Auto) Not Reportable 11/29/20 04:05 Lymph # (Auto) Not Reportable 11/29/20 04:05 [place] # (Auto) Not Reportable 11/29/20 04:05 Eos # (Auto) Not Reportable 11/29/20 04:05 Baso # (Auto) Not Reportable 11/29/20 04:05 Absolute Nucleated RBC Not Reportable 11/29/20 04:05 Total Counted 100 11/29/20 04:05 Band Neuts % (Manual) 0 % (0-10) 11/29/20 04:05 Abnorm Lymph % (Manual) 0 % 11/29/20 04:05 Metamyelocytes % 1 % (-0) H 11/29/20 04:05 Myelocytes % 1 % (-0) H 11/29/20 04:05 Plasma Cell % (Manual) 1 % 11/25/20 05:52 Nucleated RBC % Not Reportable 11/29/20 04:05 Neutrophils # (Manual) 17.1 10^3/uL (1.5-6.6) H 11/29/20 04:05 Lymphocytes # (Manual) 1.9 10^3/uL (1.5-3.5) 11/29/20 04:05 Monocytes # (Manual) 1.5 10^3/uL (0.0-1.0) H 11/29/20 04:05 Eosinophils # (Manual) 0.0 10^3/uL (0-0.7) 11/29/20 04:05 Basophils # (Manual) 0.2 10^3/uL (0-0.1) H 11/29/20 04:05 Nucleated RBCs 2 % 11/24/20 07:24 Differential Comment MANUAL DIFFERENTIAL 11/29/20 04:05 Manual Slide Review Indicated 11/25/20 05:52 WBC Morphology NORMAL APPEARANCE (NORMAL) 11/29/20 04:05 Platelet Estimate INCREASED (>450,000) (NORMAL) 11/29/20 04:05 Platelet Morphology NORMAL APPEARANCE (NORMAL) 11/29/20 04:05 RBC Morph Micro Appear 2+ HYPOCHROMASIA (NORMAL) 11/29/20 04:05 PT 11.7 secs (9.9-12.6) 11/12/20 09:45 INR 1.0 (0.8-1.2) 11/12/20 09:45 Anti-Xa Level 0.3 U/mL (-0.7) 11/14/20 06:17 Bld Gas Analysis Time 0231 11/13/20 02:20 Sample Site RIGHT RADIAL 11/13/20 02:20 ABG pH 7.29 (7.35-7.45) L 11/13/20 02:20 ABG pCO2 25 mmHg (34-45) L* 11/13/20 02:20 ABG pO2 79 mmHg (80-100) L 11/13/20 02:20 ABG HCO3 11.7 mmol/L (22.0-26.0) L 11/13/20 02:20 ABG Total CO2 12.4 MMOL/L (21.0-29.0) L 11/13/20 02:20 ABG O2 Saturation 95 % (94-98) 11/13/20 02:20 ABG Base Excess -13.2 mmol/L (-2.0-3.0) L 11/13/20 02:20 Jose Test POSITIVE 11/13/20 02:20 Room Air YES 11/13/20 02:20 FiO2 0.21 11/13/20 02:20 Sodium 135 mmol/L (135-145) 11/29/20 04:05 Potassium 4.4 mmol/L (3.5-5.0) 11/29/20 04:05 Chloride 100 mmol/L (101-111) L 11/29/20 04:05 Carbon Dioxide 24 mmol/L (21-32) 11/29/20 04:05 Anion Gap 11.0 (6-13) 11/29/20 04:05 BUN 14 mg/dL (6-20) 11/29/20 04:05 Creatinine 0.9 mg/dL (0.6-1.2) 11/29/20 04:05 Estimated GFR (MDRD) 88 (>89) L 11/29/20 04:05 Glucose 130 mg/dL (70-100) H 11/29/20 04:05 POC Whole Bld Glucose 119 mg/dL (70 - 100) H 11/17/20 23:45 Lactic Acid 1.2 mmol/L (0.5-2.2) 11/21/20 19:04 Calcium 9.1 mg/dL (8.5-10.3) 11/29/20 04:05 Phosphorus 2.5 mg/dL (2.5-4.6) 11/19/20 06:15 Magnesium 2.1 mg/dL (1.7-2.8) 11/23/20 06:21 Iron 15 ug/dL (45-182) L 11/27/20 04:35 TIBC 193 ug/dL (250-450) L 11/27/20 04:35 % Saturation 8 % (20-50) L 11/27/20 04:35 Transferrin 138 mg/dL (180-329) L 11/27/20 04:35 Total Bilirubin 1.2 mg/dL (0.2-1.0) H 11/21/20 19:04 Direct Bilirubin 0.4 mg/dL (0.1-0.5) 11/13/20 00:31 AST 28 IU/L (10-42) 11/21/20 19:04 ALT 30 IU/L (10-60) 11/21/20 19:04 Alkaline Phosphatase 121 IU/L (42-121) 11/21/20 19:04 Troponin I High Sens 224.9 ng/L (2.3-19.7) H* 11/14/20 08:25 Total Protein 6.7 g/dL (6.7-8.2) 11/21/20 19:04 Albumin 2.5 g/dL (3.2-5.5) L 11/21/20 19:04 Globulin 4.2 g/dL (2.1-4.2) 11/21/20 19:04 Albumin/Globulin Ratio 0.6 (1.0-2.2) L 11/21/20 19:04 Prealbumin 7 mg/dL (18-45) L 11/25/20 05:52 Triglycerides 119 mg/dL (-149) 11/25/20 05:52 Nasal Screen MRSA (PCR) NEGATIVE (NEGATIVE) 11/13/20 02:00 Stl C. diff Tox B Gene POSITIVE (NEGATIVE) A* 11/17/20 15:30 Last Dose Date 11/25/20 11/25/20 08:21 Last Dose Time 03311/25/20 08:21 Vancomycin Trough 15.7 ug/mL (10.0-20.0) 11/25/20 08:21 Blood Type O POSITIVE 11/13/20 00:31 Blood Type Recheck O POSITIVE 11/13/20 01:40 Antibody Screen NEGATIVE 11/13/20 00:31 Crossmatch IS Only See Detail 11/13/20 00:31 - Procedures Procedures: Procedures BYPASS ILEUM TO CUTANEOUS, PERCUTANEOUS ENDOSCOPIC APPROACH (09/13/20) COLONOSCOPY (05/29/13) EXCISION OF RECTUM, OPEN APPROACH (09/13/20) EXCISION OF SIGMOID COLON, OPEN APPROACH (09/13/20) INSERTION OF INFUSION DEV INTO SUP VENA CAVA, PERC APPROACH (09/13/20) INSPECTION OF LOWER INTESTINAL TRACT, ENDO (09/13/20) INTRODUCTION OF NUTRITIONAL INTO CENTRAL VEIN, PERC APPROACH (09/13/20) RELEASE ILEUM, PERCUTANEOUS ENDOSCOPIC APPROACH (09/13/20) RELEASE LEFT LARGE INTESTINE, PERC ENDO APPROACH (09/13/20) Sepsis Event Note (H) - Evaluation Current Stage of Sepsis: Resolved Possible source of Sepsis: positive: GI tract/intra-abdominal - Sepsis Criteria Sepsis Criteria: Recorded Temperature greater than 38.3C or Less than 36C, Recorded Heart Rate greater than 90 bpm, WBC count greater than 12,000 or less than 4000 ABX Reporting Has patient been on IV antibiotics over the past 48 hours?: Yes
[2020-11-29] MEDS: HEPARIN 5,000 UNIT/ML VIAL SUBQ SCH ×2 (08:52→21:24)
[2020-11-29] MEDS: SIMETHICONE CHEW 80 MG TABLET PO SCH ×4 (08:53→21:22)
[2020-11-29] MEDS: PREGABALIN 100 MG CAPSULE PO SCH ×2 (08:53→21:21)
[2020-11-29] MEDS: amLODIPine 5 MG TABLET PO SCH (08:54)
[2020-11-29] MEDS: MULTIVITAMIN W/MINERALS TABLET PO SCH (11:17)
[2020-11-29] MEDS: SODIUM CHLORIDE FLUSH 0.9% 10 ML SYRINGE IVP PRN (12:35)
[2020-11-29] MEDS: CHOLECALCIFEROL 25 MCG TABLET PO SCH (12:46)
--- NOTE | 2020-11-29 13:58 | PROVIDER PROGRESS NOTE ---
Progress Note Subjective Status post CT angio of the chest and CT of the abdomen. Please see EMR for results however patient without any evidence of pulmonary embolism or acute pulmonary process. There was indeed a large air-fluid collection within the abdomen consistent with abscess. Status post special procedure/interventional radiographic placement of percutaneous drain x2 with large decompression 2.5 L seropurulent drainage. Diagnosed with C. difficile colitis. Denies chest pain/sob. Voiding spontaneously. Pre-Op Diagnosis: H/O LAR for complicated diverticulitis; distal ileal perf on enterosscopy Procedure Performed: 1. Mini laparotomy 2. Diagnostic laparoscopy 3. Ileostomy reversal and small bowel resection 4. Abdominal washout 5. Drain placement 6. Extensive adhesiolysis including right colonic mobilization Post Op Diagnosis: Same; terminal ileal stricturing; right pelvic side wall adhesions Objective Afebrile, hemodynamically acceptable General Appearance: positive: No acute distress Eyes Bilateral: positive: Normal inspection ENT: positive: ENT inspection nml Neck: positive: Nml inspection Respiratory: positive: Chest non-tender, No respiratory distress, Breath sounds nml. negative: Wheezes, Rales, Rhonchi Cardiovascular: positive: Regular rate & rhythm Extremities: positive: Non-tender, Full ROM, Nml appearance Neurologic/Psychiatric: positive: Oriented x3, CN's nml (2-12) Abdomen much softer, far less distended, appropriately tender, no rebound no guarding. Historic ileostomy site packing change. Impression/Plan Postoperative day #17 currently with persistent, although overall improved, leukocytosis, resolved C diff colitis with no significant inflammatory changes noted on imaging, with immediate post operative elevated troponin, tachycardia, lactic acidosis, as well as syncopal episode on postoperative day #0. EKG was was without any significant changes. No chest pain and no dyspnea. His echocardiography was without any significant wall motion abnormality. He was started on a heparin drip including aspirin. Suspected demand ischemia, no EKG changes. Profound anemia, likely secondary to systemic AC in the immediate post-operative period, thus discontinued the Hep gtt in lieu of demand ischemia and transfused pRBC X2. C. difficile colitis. Negative for pulmonary embolism by CT angio. Status post CT-guided percutaneous interventional radiology Drainage catheter placement at [facility]. Repeat imaging with persistent abscess. Placed catheters X2 to self suction with MARGARETTE, and repeated drain cultures for sensitives. 300cc of purulent output achieved this afternoon. Plan going forward is as follows: (1) GI - GI ppx. Opiate sparring analgesia. Continue diet. (2) SURGERY - Continue daily dressing changes to the patient's historic ileostomy site. Continue CT-guided percutaneous drains to self suction, flush every 4 hours with 10 cc, culture and sensitivity pending. (3) Renal/Lytes - Renal indices within normal limits. Replete lites for hypokal emia. (4) Respiratory - O2 as necessary. Continue IS. (5) Heme - Serial H&H's. Previously transfused 2unit pRBC. Transfused venofer over 5 days completed. H&H stable thus far. (6) Cardiovascular - HD acceptable. Demand ischemia. Echo with no wall motion abnormality. (7) Neuro - Opiate sparring analgesia. (8) Immune/Infectious Disease - Completed vancomycin for C. difficile colitis. Persistent leukocytosis. Persistent abdominal fluid collection. Gram stains positive x2 thus will broaden coverage for suspected ESBL organism after discussion with hospitalist. May need PICC. (9) PT/OT
[2020-11-29] MEDS: MEROPENEM 1 GM in SODIUM CHLORIDE 0.9% MINIBAG 100 ML IV SCH ×2 (16:43→21:39)
[2020-11-30] MEDS: methocarbamoL 500 MG TABLET PO SCH ×4 (00:12→18:00)
[2020-11-30] MEDS: SODIUM CHLORIDE FLUSH 0.9% 10 ML SYRINGE IVP SCH ×3 (00:13→15:51)
[2020-11-30] MEDS: ACETAMINOPHEN 500 MG TABLET PO PRN ×5 (04:28→20:35)
[2020-11-30] MEDS: oxyCODONE 5 MG TABLET PO PRN ×5 (04:28→20:34)
[2020-11-30 05:18] LABS: BASOPHILS # (AUTO) 0.1 10^3/uL (0.0-0.1); BASOPHILS % (AUTO) 0.7 %; EOSINOPHILS # (AUTO) 0.1 10^3/uL (0.0-0.7); EOSINOPHILS % (AUTO) 0.5 %; HCT - HEMATOCRIT 29.4 % (42.0-52.0); HGB - HEMOGLOBIN 9.2 g/dL (14.0-18.0); LYMPHOCYTES # (AUTO) 2.1 10^3/uL (1.5-3.5); LYMPHOCYTES % (AUTO) 13.3 %; MEAN CORPUSCULAR HEMOGLOBIN 28.6 pg (27.0-31.0); MEAN CORPUSCULAR HGB CONC 31.3 g/dL (32.0-36.0); MEAN CORPUSCULAR VOLUME 91.3 fL (80.0-94.0); MEAN PLATELET VOLUME 9.6 fL (7.4-11.4); MONOCYTES % (AUTO) 6.3 %; NEUTROPHILS % (AUTO) 74.9 %; PLT - PLATELET COUNT 704 10^3/uL (130-450); RED BLOOD COUNT 3.22 10^6/uL (4.70-6.10); RED CELL DISTRIBUTION WIDTH 14.3 % (12.0-15.0)
[2020-11-30 05:24] LABS: CALCIUM 8.7 mg/dL (8.5-10.3); CREATININE 0.9 mg/dL (0.6-1.2); POTASSIUM 4.1 mmol/L (3.5-5.0)
[2020-11-30] MEDS: MEROPENEM 1 GM in SODIUM CHLORIDE 0.9% MINIBAG 100 ML IV SCH ×3 (05:32→22:27)
[2020-11-30 05:47] LABS: PLATELET ESTIMATE, MANUAL INCREASED (>450,000) (NORMAL); PLATELET MORPHOLOGY NORMAL APPEARANCE (NORMAL); RBC MORPHOLOGY (MULTIPLE) NORMAL APPEARANCE (NORMAL); WBC MORPHOLOGY (MULTIPLE) NORMAL APPEARANCE (NORMAL)
--- NOTE | 2020-11-30 07:23 | PROVIDER PROGRESS NOTE ---
Assessment/Plan - Problem List (1) Sepsis Assessment/Plan: Likely secondary to intra-abdominal abscess. Patient's white blood cell count today is 16. This is an decreased from [address] scan of the abdomen/pelvis done on 11/28/20 showed presence of a very large abdominal abscess. Dr. Pal with general surgery flush the tubes and connected to suction. About 550 ml of purulent liquid was extracted. MARGARETTE drainage in place. For the suction planned for today. Patient appears significantly improved from the previous day. Zosyn was discontinued yesterday and patient was started on meropenem. Blood cultures pending. Preliminary stains on fluid from drainage showed gram-positive bacilli, Moderate gram-positive cocci in chains and many WBCs. (2) Intra-abdominal abscess Assessment/Plan: Patient's white blood cell count today is 16. This is an decreased from [address] scan of the abdomen/pelvis done on 11/28/20 showed presence of a very large abdominal abscess. Dr. Pal with general surgery flush the tubes and connected to suction. About 550 ml of purulent liquid was extracted. MARGARETTE drainage in place. For the suction planned for today. Patient appears significantly improved from the previous day. Zosyn was discontinued yesterday and patient was started on meropenem. Blood cultures pending. Preliminary stains on fluid from drainage showed gram-positive bacilli, Moderate gram-positive cocci in chains and many WBCs. (3) Status post reversal of ileostomy Assessment/Plan: This has been complicated by postop abdominal abscess. He is now postop day 17. Management as per general surgery. (4) C. difficile diarrhea Assessment/Plan: His diarrhea has resolved. Last day of oral vancomycin was 11/28/20. (5) Postoperative anemia Assessment/Plan: His iron studies are suggestive of acute phase reaction. His hemoglobin has been stable and is increasing on a daily basis with no evidence of bleeding. (6) Hypertension Assessment/Plan: His blood pressure is well controlled on amlodipine. (8) Hypokalemia Assessment/Plan: His elevated troponin earlier on during this admission was consistent with demand ischemia. Echocardiogram showed no wall motion abnormalities. - Current Meds Current Meds: Current Medications Generic Name Dose Route Start Last Admin Trade Name Freq PRN Reason Stop Dose Admin Acetaminophen 500 mg 11/15/20 17:20 11/30/20 04:28 Acetaminophen 500 Mg Tablet PO 500 mg Q4HR PRN Administration Pain or Fever > 38C (100.4F) Amlodipine Besylate 5 mg 11/15/20 16:16 11/29/20 08:54 Amlodipine 5 Mg Tablet PO 5 mg DAILY ASHWIN Administration Cholecalciferol 50 mcg 11/29/20 13:00 11/29/20 12:46 Cholecalciferol 25 Mcg Tablet PO 50 mcg DAILY ASHWIN Administration Heparin Sodium (Porcine) 5,000 unit 11/19/20 21:00 11/29/20 21:24 Heparin 5,000 Unit/Ml Vial SUBQ 5,000 unit BID ASHWIN Administration Meropenem 1 gm/ Sodium 100 mls @ 200 mls/hr 11/29/20 17:00 11/30/20 06:08 Chloride IV Infused Q8HR ASHWIN Infusion Methocarbamol 500 mg 11/12/20 18:00 11/30/20 05:32 Methocarbamol 500 Mg Tablet PO 500 mg Q6HR ASHWIN Administration Mineral Oil 1 applic 11/16/20 16:23 11/16/20 20:52 Min Oil/Dimethicon/Coconut Oil 92 Gm Tube TOP 1 applic PRN PRN Administration Skin Care Multivitamins/Minerals 1 tab 11/29/20 10:00 11/29/20 11:17 Multivitamin W/Minerals Tablet PO 1 tab DAILYWM ASHWIN Administration Ondansetron HCl 4 mg 11/12/20 17:01 11/21/20 19:13 Ondansetron 4 Mg/2 Ml Vial IVP 4 mg Q6HR PRN Administration Nausea / Vomiting Oxycodone HCl 5 mg 11/16/20 11:35 11/30/20 04:28 Oxycodone 5 Mg Tablet PO 5 mg Q4HR PRN Administration PAIN Pregabalin 100 mg 11/12/20 21:00 11/29/20 21:21 Pregabalin 100 Mg Capsule PO 100 mg BID ASHWIN Administration Simethicone 80 mg 11/19/20 20:00 11/29/20 21:22 Simethicone Chew 80 Mg Tablet PO 80 mg 0900,1300,1800,2100 ASHWIN Administration Sodium Chloride 10 ml 11/13/20 09:00 11/30/20 00:13 Sodium Chloride Flush 0.9% 10 Ml Syringe IVP 20 ml 0100,0900,1700 ASHWIN Administration Sodium Chloride 10 ml 11/13/20 01:35 11/29/20 12:35 Sodium Chloride Flush 0.9% 10 Ml Syringe IVP 10 ml PRN PRN Administration NEEDED PER PROVIDER ORDERS Sodium Chloride 20 ml 11/13/20 04:04 11/14/20 06:17 Sodium Chloride Flush 0.9% 10 Ml Syringe IVP 20 ml PRN PRN Administration After Blood Draw Tramadol HCl 50 mg 11/19/20 19:39 11/19/20 20:17 Tramadol 50 Mg Tablet PO 50 mg Q4HR PRN Administration PAIN - Lab Result Fish Bone Diagrams: 11/30/20 04:40 11/30/20 04:40 - Additional Planning My Orders: My Active Orders 11/29/20 17:00 Meropenem [Merrem] 1 gm Sodium Chloride 0.9% Minibag [Normal Saline 0.9% Minibag] 100 ml IV Q8HR 12/01/20 05:00 BMP - BASIC METABOLIC PANEL [CHEM] DAILYLAB CBC - COMP BLD CT W/AUTO DIFF [HEME] DAILYLAB 12/02/20 05:00 BMP - BASIC METABOLIC PANEL [CHEM] DAILYLAB CBC - COMP BLD CT W/AUTO DIFF [HEME] DAILYLAB 12/03/20 05:00 BMP - BASIC METABOLIC PANEL [CHEM] DAILYLAB CBC - COMP BLD CT W/AUTO DIFF [HEME] DAILYLAB 12/04/20 05:00 BMP - BASIC METABOLIC PANEL [CHEM] DAILYLAB CBC - COMP BLD CT W/AUTO DIFF [HEME] DAILYLAB 12/05/20 05:00 BMP - BASIC METABOLIC PANEL [CHEM] DAILYLAB CBC - COMP BLD CT W/AUTO DIFF [HEME] DAILYLAB 12/06/20 05:00 BMP - BASIC METABOLIC PANEL [CHEM] DAILYLAB CBC - COMP BLD CT W/AUTO DIFF [HEME] DAILYLAB 12/07/20 05:00 BMP - BASIC METABOLIC PANEL [CHEM] DAILYLAB CBC - COMP BLD CT W/AUTO DIFF [HEME] DAILYLAB Subjective - Subjective Patient Reports: Other (Patient resting comfortably in bed today appears to be in very good spirits. Reported feeling well. Denied any complaints except for the tenderness at the point of insertion of the percutaneous drainage tubes.) Objective Vital Signs: Vital Signs - 24 hr 11/29/20 11/29/20 11/29/20 08:56 13:37 16:26 Temperature 37.4 C 37.3 C 37.1 C Heart Rate [ 86 88 91 Brachial] Respiratory 20 22 18 Rate Blood Pressure 123/64 128/73 123/71 [Right Brachial artery] O2 Saturation 97 96 95 11/29/20 23:57 Temperature 37.1 C Heart Rate [ 71 Brachial] Respiratory 16 Rate Blood Pressure 128/70 [Right Brachial artery] O2 Saturation 95 Oxygen O2 Source Room air I&O (Last 24 Hrs): Intake and Output Totals x24h 11/28/20 11/29/20 11/30/20 23:59 23:59 23:59 Intake Total 1000 2282 100 Output Total 2990 3430 640 Balance -1990 -1148 -540 General: Alert, Oriented x3, Mild distress HEENT: PERRLA, EOMI Neck: Supple, No JVD Neuro: Alert, Non Focal, Oriented Times 3 Cardiovascular: Regular rate Respiratory: Chest non-tender, No respiratory distress, Breath sounds nml Abdomen: Normal bowel sounds, Soft, Other (Tenderness at site of insertion of percutaneous drainage tube) Extremities: No clubbing, No cyanosis, No edema Skin: No rashes, No breakdown - Results Results: Laboratory Results WBC 16.0 x10^3/uL (4.8-10.8) H 11/30/20 04:40 RBC 3.22 10^6/uL (4.70-6.10) L 11/30/20 04:40 Hgb 9.2 g/dL (14.0-18.0) L 11/30/20 04:40 Hct 29.4 % (42.0-52.0) L 11/30/20 04:40 MCV 91.3 fL (80.0-94.0) 11/30/20 04:40 MCH 28.6 pg (27.0-31.0) 11/30/20 04:40 MCHC 31.3 g/dL (32.0-36.0) L 11/30/20 04:40 RDW 14.3 % (12.0-15.0) 11/30/20 04:40 Plt Count 704 10^3/uL (130-450) H 11/30/20 04:40 MPV 9.6 fL (7.4-11.4) 11/30/20 04:40 Neut # (Auto) 12.0 10^3/uL (1.5-6.6) H 11/30/20 04:40 Lymph # (Auto) 2.1 10^3/uL (1.5-3.5) 11/30/20 04:40 [place] # (Auto) 1.0 10^3/uL (0.0-1.0) 11/30/20 04:40 Eos # (Auto) 0.1 10^3/uL (0.0-0.7) 11/30/20 04:40 Baso # (Auto) 0.1 10^3/uL (0.0-0.1) 11/30/20 04:40 Absolute Nucleated RBC 0.00 x10^3/uL 11/30/20 04:40 Total Counted 100 11/29/20 04:05 Band Neuts % (Manual) 0 % (0-10) 11/29/20 04:05 Abnorm Lymph % (Manual) 0 % 11/29/20 04:05 Metamyelocytes % 1 % (-0) H 11/29/20 04:05 Myelocytes % 1 % (-0) H 11/29/20 04:05 Plasma Cell % (Manual) 1 % 11/25/20 05:52 Nucleated RBC % 0.0 /100WBC 11/30/20 04:40 Neutrophils # (Manual) 17.1 10^3/uL (1.5-6.6) H 11/29/20 04:05 Lymphocytes # (Manual) 1.9 10^3/uL (1.5-3.5) 11/29/20 04:05 Monocytes # (Manual) 1.5 10^3/uL (0.0-1.0) H 11/29/20 04:05 Eosinophils # (Manual) 0.0 10^3/uL (0-0.7) 11/29/20 04:05 Basophils # (Manual) 0.2 10^3/uL (0-0.1) H 11/29/20 04:05 Nucleated RBCs 2 % 11/24/20 07:24 Differential Comment MANUAL DIFFERENTIAL 11/29/20 04:05 Manual Slide Review Indicated 11/25/20 05:52 WBC Morphology NORMAL APPEARANCE (NORMAL) 11/30/20 04:40 Platelet Estimate INCREASED (>450,000) (NORMAL) 11/30/20 04:40 Platelet Morphology NORMAL APPEARANCE (NORMAL) 11/30/20 04:40 RBC Morph Micro Appear NORMAL APPEARANCE (NORMAL) 11/30/20 04:40 PT 11.7 secs (9.9-12.6) 11/12/20 09:45 INR 1.0 (0.8-1.2) 11/12/20 09:45 Anti-Xa Level 0.3 U/mL (-0.7) 11/14/20 06:17 Bld Gas Analysis Time 0231 11/13/20 02:20 Sample Site RIGHT RADIAL 11/13/20 02:20 ABG pH 7.29 (7.35-7.45) L 11/13/20 02:20 ABG pCO2 25 mmHg (34-45) L* 11/13/20 02:20 ABG pO2 79 mmHg (80-100) L 11/13/20 02:20 ABG HCO3 11.7 mmol/L (22.0-26.0) L 11/13/20 02:20 ABG Total CO2 12.4 MMOL/L (21.0-29.0) L 11/13/20 02:20 ABG O2 Saturation 95 % (94-98) 11/13/20 02:20 ABG Base Excess -13.2 mmol/L (-2.0-3.0) L 11/13/20 02:20 Jose Test POSITIVE 11/13/20 02:20 Room Air YES 11/13/20 02:20 FiO2 0.21 11/13/20 02:20 Sodium 136 mmol/L (135-145) 11/30/20 04:40 Potassium 4.1 mmol/L (3.5-5.0) 11/30/20 04:40 Chloride 99 mmol/L (101-111) L 11/30/20 04:40 Carbon Dioxide 27 mmol/L (21-32) 11/30/20 04:40 Anion Gap 10.0 (6-13) 11/30/20 04:40 BUN 12 mg/dL (6-20) 11/30/20 04:40 Creatinine 0.9 mg/dL (0.6-1.2) 11/30/20 04:40 Estimated GFR (MDRD) 88 (>89) L 11/30/20 04:40 Glucose 116 mg/dL (70-100) H 11/30/20 04:40 POC Whole Bld Glucose 119 mg/dL (70 - 100) H 11/17/20 23:45 Lactic Acid 1.2 mmol/L (0.5-2.2) 11/21/20 19:04 Calcium 8.7 mg/dL (8.5-10.3) 11/30/20 04:40 Phosphorus 2.5 mg/dL (2.5-4.6) 11/19/20 06:15 Magnesium 2.1 mg/dL (1.7-2.8) 11/23/20 06:21 Iron 15 ug/dL (45-182) L 11/27/20 04:35 TIBC 193 ug/dL (250-450) L 11/27/20 04:35 % Saturation 8 % (20-50) L 11/27/20 04:35 Transferrin 138 mg/dL (180-329) L 11/27/20 04:35 Total Bilirubin 1.2 mg/dL (0.2-1.0) H 11/21/20 19:04 Direct Bilirubin 0.4 mg/dL (0.1-0.5) 11/13/20 00:31 AST 28 IU/L (10-42) 11/21/20 19:04 ALT 30 IU/L (10-60) 11/21/20 19:04 Alkaline Phosphatase 121 IU/L (42-121) 11/21/20 19:04 Troponin I High Sens 224.9 ng/L (2.3-19.7) H* 11/14/20 08:25 Total Protein 6.7 g/dL (6.7-8.2) 11/21/20 19:04 Albumin 2.5 g/dL (3.2-5.5) L 11/21/20 19:04 Globulin 4.2 g/dL (2.1-4.2) 11/21/20 19:04 Albumin/Globulin Ratio 0.6 (1.0-2.2) L 11/21/20 19:04 Prealbumin 7 mg/dL (18-45) L 11/25/20 05:52 Triglycerides 119 mg/dL (-149) 11/25/20 05:52 Nasal Screen MRSA (PCR) NEGATIVE (NEGATIVE) 11/13/20 02:00 Stl C. diff Tox B Gene POSITIVE (NEGATIVE) A* 11/17/20 15:30 Last Dose Date 11/25/20 11/25/20 08:21 Last Dose Time 03311/25/20 08:21 Vancomycin Trough 15.7 ug/mL (10.0-20.0) 11/25/20 08:21 Blood Type O POSITIVE 11/13/20 00:31 Blood Type Recheck O POSITIVE 11/13/20 01:40 Antibody Screen NEGATIVE 11/13/20 00:31 Crossmatch IS Only See Detail 11/13/20 00:31 - Procedures Procedures: Procedures BYPASS ILEUM TO CUTANEOUS, PERCUTANEOUS ENDOSCOPIC APPROACH (09/13/20) COLONOSCOPY (05/29/13) EXCISION OF RECTUM, OPEN APPROACH (09/13/20) EXCISION OF SIGMOID COLON, OPEN APPROACH (09/13/20) INSERTION OF INFUSION DEV INTO SUP VENA CAVA, PERC APPROACH (09/13/20) INSPECTION OF LOWER INTESTINAL TRACT, ENDO (09/13/20) INTRODUCTION OF NUTRITIONAL INTO CENTRAL VEIN, PERC APPROACH (09/13/20) RELEASE ILEUM, PERCUTANEOUS ENDOSCOPIC APPROACH (09/13/20) RELEASE LEFT LARGE INTESTINE, PERC ENDO APPROACH (09/13/20) Sepsis Event Note (H) - Evaluation Current Stage of Sepsis: Resolved Possible source of Sepsis: positive: GI tract/intra-abdominal - Sepsis Criteria Sepsis Criteria: Recorded Temperature greater than 38.3C or Less than 36C, Recorded Heart Rate greater than 90 bpm, WBC count greater than 12,000 or less than 4000 ABX Reporting Has patient been on IV antibiotics over the past 48 hours?: Yes
[2020-11-30] MEDS: amLODIPine 5 MG TABLET PO SCH (08:23)
[2020-11-30] MEDS: SIMETHICONE CHEW 80 MG TABLET PO SCH ×4 (08:23→20:35)
[2020-11-30] MEDS: CHOLECALCIFEROL 25 MCG TABLET PO SCH (08:23)
[2020-11-30] MEDS: MULTIVITAMIN W/MINERALS TABLET PO SCH (08:23)
[2020-11-30] MEDS: PREGABALIN 100 MG CAPSULE PO SCH ×2 (08:23→20:34)
[2020-11-30] MEDS: HEPARIN 5,000 UNIT/ML VIAL SUBQ SCH ×2 (08:28→20:33)
[2020-11-30] MEDS: SODIUM CHLORIDE FLUSH 0.9% 10 ML SYRINGE IVP PRN ×2 (14:29→22:28)
--- NOTE | 2020-11-30 16:08 | PROVIDER PROGRESS NOTE ---
Progress Note Subjective Aggressively irrigated and aspirated right percutaneous drains yesterday with significant purulent output. Cultures positive for E. coli. Explained to the patient is natural history which included the followin. 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 This area was concerning for stricture formation in the setting of severe complicated diverticulitis and necessitated evaluation endoscopically 3. Unable to evaluate this retrograde through the ileocecal valve proceeded antegrade through the efferent limb of his loop ileostomy 4. Likely cause small contained leak of this area necessitating urgent operat mario intervention in the way of takedown 5. Immediately postop syncopal episode concerning for non-STEMI necessitating systemic anticoagulation with heparin drip 6. Likely intra-abdominal hematoma severe acute blood loss anemia in the setting of systemic anticoagulation in the immediate postoperative period necessitating transfusion 7. C. difficile treated; development of intra-abdominal abscess in the milieu of contaminated case and intra-abdominal hematoma, incomplete drainage necessitating aggressive irrigation. Overall feels much better today. Patient spouse at bedside. Pre-Op Diagnosis: H/O LAR for complicated diverticulitis; distal ileal perf on enterosscopy Procedure Performed: 1. Mini laparotomy 2. Diagnostic laparoscopy 3. Ileostomy reversal and small bowel resection 4. Abdominal washout 5. Drain placement 6. Extensive adhesiolysis including right colonic mobilization Post Op Diagnosis: Same; terminal ileal stricturing; right pelvic side wall adhesions Objective Afebrile, hemodynamically acceptable General Appearance: positive: No acute distress Eyes Bilateral: positive: Normal inspection ENT: positive: ENT inspection nml Neck: positive: Nml inspection Respiratory: positive: Chest non-tender, No respiratory distress, Breath sounds nml. negative: Wheezes, Rales, Rhonchi Cardiovascular: positive: Regular rate & rhythm Extremities: positive: Non-tender, Full ROM, Nml appearance Neurologic/Psychiatric: positive: Oriented x3, CN's nml (2-12) Abdomen much softer, far less distended, appropriately tender, no rebound no guarding. Changed drain dressings x2. Aggressively aspirated and irrigated drains x2. Please see EMR for specifics Impression/Plan Postoperative day #18 currently with resolving leukocytosis, resolved C diff colitis with no significant inflammatory changes noted on imaging, with immediate post operative elevated troponin, tachycardia, lactic acidosis, as well as syncopal episode on postoperative day #0. EKG was was without any significant changes. No chest pain and no dyspnea. His echocardiography was without any significant wall motion abnormality. Please see above for clinical summary. Residual abscess cavity addressed with self suction and aggressive irrigation. Plan repeat imaging in the next several days and awaiting speciation of the repeat cultures. Plan going forward is as follows: (1) GI - GI ppx. Opiate sparring analgesia. Continue diet. (2) SURGERY - Continue daily dressing changes to the patient's historic ileostomy site. Continue CT-guided percutaneous drains to self suction, flush every 4 hours with 10 cc, sensitivity pending. (3) Renal/Lytes - Renal indices within normal limits. (4) Respiratory - O2 as necessary. Continue IS. (5) Heme - Serial H&H's. Previously transfused 2unit pRBC. Transfused venofer over 5 days completed. H&H stable thus far. (6) Cardiovascular - HD acceptable. Demand ischemia. Echo with no wall motion abnormality. (7) Neuro - Opiate sparring analgesia. (8) Immune/Infectious Disease - Completed vancomycin for C. difficile colitis. Persistent leukocytosis. Persistent abdominal fluid collection. Gram stains positive x2 thus will broaden coverage for suspected ESBL with meropenem for E. coli organism after discussion with hospitalist. May need PICC. (9) PT/OT
[2020-11-30 18:04] LABS: BASOPHILS # (AUTO) 0.1 10^3/uL (0.0-0.1); BASOPHILS % (AUTO) 0.6 %; EOSINOPHILS # (AUTO) 0.1 10^3/uL (0.0-0.7); EOSINOPHILS % (AUTO) 0.5 %; HCT - HEMATOCRIT 28.4 % (42.0-52.0); HGB - HEMOGLOBIN 8.7 g/dL (14.0-18.0); LYMPHOCYTES # (AUTO) 2.6 10^3/uL (1.5-3.5); LYMPHOCYTES % (AUTO) 17.2 %; MEAN CORPUSCULAR HEMOGLOBIN 27.8 pg (27.0-31.0); MEAN CORPUSCULAR HGB CONC 30.6 g/dL (32.0-36.0); MEAN CORPUSCULAR VOLUME 90.7 fL (80.0-94.0); MEAN PLATELET VOLUME 9.6 fL (7.4-11.4); MONOCYTES # (AUTO) 0.9 10^3/uL (0.0-1.0); MONOCYTES % (AUTO) 5.8 %; NEUTROPHILS % (AUTO) 72.2 %; PLT - PLATELET COUNT 686 10^3/uL (130-450); RED BLOOD COUNT 3.13 10^6/uL (4.70-6.10); RED CELL DISTRIBUTION WIDTH 14.2 % (12.0-15.0); WHITE BLOOD COUNT 15.3 x10^3/uL (4.8-10.8)
[2020-11-30 18:14] LABS: ALBUMIN 2.4 g/dL (3.2-5.5); ALBUMIN/GLOBULIN RATIO 0.5 (1.0-2.2); BILIRUBIN,TOTAL 0.4 mg/dL (0.2-1.0); CALCIUM 8.5 mg/dL (8.5-10.3); CREATININE 0.8 mg/dL (0.6-1.2); POTASSIUM 3.9 mmol/L (3.5-5.0); TOTAL PROTEIN 6.9 g/dL (6.7-8.2)
[2020-11-30 18:17] LABS: SLIDE REVIEW? Indicated
[2020-11-30 18:25] LABS: PLATELET ESTIMATE, MANUAL INCREASED (>450,000) (NORMAL)
[2020-11-30 18:34] LABS: PLATELET MORPHOLOGY NORMAL APPEARANCE (NORMAL); RBC MORPHOLOGY (MULTIPLE) NORMAL APPEARANCE (NORMAL); WBC MORPHOLOGY (MULTIPLE) NORMAL APPEARANCE (NORMAL)
[2020-12-01] MEDS: methocarbamoL 500 MG TABLET PO SCH ×4 (00:17→17:41)
[2020-12-01] MEDS: SODIUM CHLORIDE FLUSH 0.9% 10 ML SYRINGE IVP SCH ×3 (00:17→17:49)
[2020-12-01] MEDS: traMADol 50 MG TABLET PO PRN ×2 (00:17→17:45)
[2020-12-01] MEDS: ACETAMINOPHEN 500 MG TABLET PO PRN ×4 (03:39→20:51)
[2020-12-01] MEDS: oxyCODONE 5 MG TABLET PO PRN ×4 (03:40→20:52)
[2020-12-01 05:25] LABS: BASOPHILS # (AUTO) 0.1 10^3/uL (0.0-0.1); BASOPHILS % (AUTO) 0.8 %; EOSINOPHILS # (AUTO) 0.1 10^3/uL (0.0-0.7); EOSINOPHILS % (AUTO) 0.8 %; HCT - HEMATOCRIT 29.9 % (42.0-52.0); HGB - HEMOGLOBIN 9.1 g/dL (14.0-18.0); LYMPHOCYTES # (AUTO) 2.2 10^3/uL (1.5-3.5); LYMPHOCYTES % (AUTO) 16.3 %; MEAN CORPUSCULAR HEMOGLOBIN 27.3 pg (27.0-31.0); MEAN CORPUSCULAR HGB CONC 30.4 g/dL (32.0-36.0); MEAN CORPUSCULAR VOLUME 89.8 fL (80.0-94.0); MEAN PLATELET VOLUME 9.9 fL (7.4-11.4); MONOCYTES # (AUTO) 0.8 10^3/uL (0.0-1.0); MONOCYTES % (AUTO) 5.7 %; NEUTROPHILS # (AUTO) 9.7 10^3/uL (1.5-6.6); PLT - PLATELET COUNT 711 10^3/uL (130-450); RED BLOOD COUNT 3.33 10^6/uL (4.70-6.10); RED CELL DISTRIBUTION WIDTH 14.2 % (12.0-15.0); WHITE BLOOD COUNT 13.5 x10^3/uL (4.8-10.8)
[2020-12-01 05:28] LABS: CALCIUM 8.9 mg/dL (8.5-10.3); CREATININE 0.9 mg/dL (0.6-1.2)
[2020-12-01] MEDS: MEROPENEM 1 GM in SODIUM CHLORIDE 0.9% MINIBAG 100 ML IV SCH ×3 (05:33→21:49)
[2020-12-01] MEDS: SODIUM CHLORIDE FLUSH 0.9% 10 ML SYRINGE IVP PRN ×2 (05:33→20:51)
[2020-12-01 05:47] LABS: PLATELET ESTIMATE, MANUAL INCREASED (>450,000) (NORMAL); PLATELET MORPHOLOGY NORMAL APPEARANCE (NORMAL); RBC MORPHOLOGY (MULTIPLE) NORMAL APPEARANCE (NORMAL); WBC MORPHOLOGY (MULTIPLE) NORMAL APPEARANCE (NORMAL)
--- NOTE | 2020-12-01 07:50 | PROVIDER PROGRESS NOTE ---
Assessment/Plan - Problem List (1) Sepsis Assessment/Plan: Likely secondary to intra-abdominal abscess. Patient's white blood cell count today is 13.5. This is an decreased from 16 yesterday. Patient continues to significantly improve daily. Zosyn was discontinued 11/29/20 and patient was started on meropenem. Blood cultures pending. Peritoneal fluid from drainage grew E. coli (2) Intra-abdominal abscess Assessment/Plan: Likely secondary to intra-abdominal abscess. Patient's white blood cell count today is 13.5. This is an decreased from 16 yesterday. Patient continues to significantly improve daily. Zosyn was discontinued 11/29/20 and patient was started on meropenem. Blood cultures pending. Peritoneal fluid from drainage grew E. coli Repeat CT abd/pel today or 12/02/20 (3) Status post reversal of ileostomy Assessment/Plan: This has been complicated by postop abdominal abscess. He is now postop day 18. Management as per general surgery. (4) C. difficile diarrhea Assessment/Plan: His diarrhea has resolved. Last day of oral vancomycin was 11/28/20. (5) Postoperative anemia Assessment/Plan: His iron studies are suggestive of acute phase reaction. His hemoglobin has been stable and is increasing on a daily basis with no evidence of bleeding. (6) Hypertension Assessment/Plan: His blood pressure is well controlled on amlodipine. - Current Meds Current Meds: Current Medications Generic Name Dose Route Start Last Admin Trade Name Freq PRN Reason Stop Dose Admin Acetaminophen 500 mg 11/15/20 17:20 12/01/20 03:39 Acetaminophen 500 Mg Tablet PO 500 mg Q4HR PRN Administration Pain or Fever > 38C (100.4F) Amlodipine Besylate 5 mg 11/15/20 16:16 11/30/20 08:23 Amlodipine 5 Mg Tablet PO 5 mg DAILY ASHWIN Administration Cholecalciferol 50 mcg 11/29/20 13:00 11/30/20 08:23 Cholecalciferol 25 Mcg Tablet PO 50 mcg DAILY ASHWIN Administration Heparin Sodium (Porcine) 5,000 unit 11/19/20 21:00 11/30/20 20:33 Heparin 5,000 Unit/Ml Vial SUBQ 5,000 unit BID ASHWIN Administration Meropenem 1 gm/ Sodium 100 mls @ 200 mls/hr 11/29/20 17:00 12/01/20 06:07 Chloride IV Infused Q8HR ASHWIN Infusion Methocarbamol 500 mg 11/12/20 18:00 12/01/20 05:33 Methocarbamol 500 Mg Tablet PO 500 mg Q6HR ASHWIN Administration Mineral Oil 1 applic 11/16/20 16:23 11/16/20 20:52 Min Oil/Dimethicon/Coconut Oil 92 Gm Tube TOP 1 applic PRN PRN Administration Skin Care Multivitamins/Minerals 1 tab 11/29/20 10:00 11/30/20 08:23 Multivitamin W/Minerals Tablet PO 1 tab DAILYWM ASHWIN Administration Ondansetron HCl 4 mg 11/12/20 17:01 11/21/20 19:13 Ondansetron 4 Mg/2 Ml Vial IVP 4 mg Q6HR PRN Administration Nausea / Vomiting Oxycodone HCl 5 mg 11/16/20 11:35 12/01/20 03:40 Oxycodone 5 Mg Tablet PO 5 mg Q4HR PRN Administration PAIN Pregabalin 100 mg 11/12/20 21:00 11/30/20 20:34 Pregabalin 100 Mg Capsule PO 100 mg BID ASHWIN Administration Simethicone 80 mg 11/19/20 20:00 11/30/20 20:35 Simethicone Chew 80 Mg Tablet PO 80 mg 0900,1300,1800,2100 ASHWIN Administration Sodium Chloride 10 ml 11/13/20 09:00 12/01/20 00:17 Sodium Chloride Flush 0.9% 10 Ml Syringe IVP 10 ml 0100,0900,1700 ASHWIN Administration Sodium Chloride 10 ml 11/13/20 01:35 12/01/20 05:33 Sodium Chloride Flush 0.9% 10 Ml Syringe IVP 10 ml PRN PRN Administration NEEDED PER PROVIDER ORDERS Sodium Chloride 20 ml 11/13/20 04:04 11/14/20 06:17 Sodium Chloride Flush 0.9% 10 Ml Syringe IVP 20 ml PRN PRN Administration After Blood Draw Tramadol HCl 50 mg 11/19/20 19:39 12/01/20 00:17 Tramadol 50 Mg Tablet PO 50 mg Q4HR PRN Administration PAIN - Lab Result Fish Bone Diagrams: 12/01/20 04:20 12/01/20 04:20 - Additional Planning My Orders: My Active Orders 12/01/20 08:00 NS 0.9% @ 125 mls/hr Sodium Chloride 0.9% [Normal Saline 0.9%] 1,000 ml IV 125 mls/hr 12/02/20 05:00 BMP - BASIC METABOLIC PANEL [CHEM] DAILYLAB CBC - COMP BLD CT W/AUTO DIFF [HEME] DAILYLAB 12/03/20 05:00 BMP - BASIC METABOLIC PANEL [CHEM] DAILYLAB CBC - COMP BLD CT W/AUTO DIFF [HEME] DAILYLAB 12/04/20 05:00 BMP - BASIC METABOLIC PANEL [CHEM] DAILYLAB CBC - COMP BLD CT W/AUTO DIFF [HEME] DAILYLAB 12/05/20 05:00 BMP - BASIC METABOLIC PANEL [CHEM] DAILYLAB CBC - COMP BLD CT W/AUTO DIFF [HEME] DAILYLAB 12/06/20 05:00 BMP - BASIC METABOLIC PANEL [CHEM] DAILYLAB CBC - COMP BLD CT W/AUTO DIFF [HEME] DAILYLAB 12/07/20 05:00 BMP - BASIC METABOLIC PANEL [CHEM] DAILYLAB CBC - COMP BLD CT W/AUTO DIFF [HEME] DAILYLAB Subjective - Subjective Patient Reports: Other (Patient continues to improve daily. He was having breakfast at the time of visit. He denied any complaints.) Objective Vital Signs: Vital Signs - 24 hr 11/30/20 11/30/20 11/30/20 08:32 14:00 15:45 Temperature 36.8 C 36.9 C 37.4 C Heart Rate [ 89 85 86 Brachial] Respiratory 16 17 18 Rate Blood Pressure 117/76 118/69 114/72 [Right Brachial artery] O2 Saturation 98 99 97 12/01/20 00:17 Temperature 36.8 C Heart Rate [ 72 Brachial] Respiratory 16 Rate Blood Pressure 134/83 H [Right Brachial artery] O2 Saturation 95 Oxygen O2 Source Room air I&O (Last 24 Hrs): Intake and Output Totals x24h 11/29/20 11/30/20 12/01/20 23:59 23:59 23:59 Intake Total 2282 1740 100 Output Total 3430 1085 1060 Balance -1148 655 -960 General: Alert, Oriented x3, No acute distress HEENT: PERRLA, EOMI Neck: Supple, No JVD Neuro: Alert, Non Focal, Oriented Times 3 Cardiovascular: Regular rate Respiratory: Chest non-tender, No respiratory distress, Breath sounds nml Abdomen: Normal bowel sounds, Soft, No tenderness Extremities: No clubbing, No cyanosis, No edema - Results Results: Laboratory Results WBC 13.5 x10^3/uL (4.8-10.8) H 12/01/20 04:20 RBC 3.33 10^6/uL (4.70-6.10) L 12/01/20 04:20 Hgb 9.1 g/dL (14.0-18.0) L 12/01/20 04:20 Hct 29.9 % (42.0-52.0) L 12/01/20 04:20 MCV 89.8 fL (80.0-94.0) 12/01/20 04:20 MCH 27.3 pg (27.0-31.0) 12/01/20 04:20 MCHC 30.4 g/dL (32.0-36.0) L 12/01/20 04:20 RDW 14.2 % (12.0-15.0) 12/01/20 04:20 Plt Count 711 10^3/uL (130-450) H 12/01/20 04:20 MPV 9.9 fL (7.4-11.4) 12/01/20 04:20 Neut # (Auto) 9.7 10^3/uL (1.5-6.6) H 12/01/20 04:20 Lymph # (Auto) 2.2 10^3/uL (1.5-3.5) 12/01/20 04:20 Hartley # (Auto) 0.8 10^3/uL (0.0-1.0) 12/01/20 04:20 Eos # (Auto) 0.1 10^3/uL (0.0-0.7) 12/01/20 04:20 Baso # (Auto) 0.1 10^3/uL (0.0-0.1) 12/01/20 04:20 Absolute Nucleated RBC 0.00 x10^3/uL 12/01/20 04:20 Total Counted 100 11/29/20 04:05 Band Neuts % (Manual) 0 % (0-10) 11/29/20 04:05 Abnorm Lymph % (Manual) 0 % 11/29/20 04:05 Metamyelocytes % 1 % (-0) H 11/29/20 04:05 Myelocytes % 1 % (-0) H 11/29/20 04:05 Plasma Cell % (Manual) 1 % 11/25/20 05:52 Nucleated RBC % 0.0 /100WBC 12/01/20 04:20 Neutrophils # (Manual) 17.1 10^3/uL (1.5-6.6) H 11/29/20 04:05 Lymphocytes # (Manual) 1.9 10^3/uL (1.5-3.5) 11/29/20 04:05 Monocytes # (Manual) 1.5 10^3/uL (0.0-1.0) H 11/29/20 04:05 Eosinophils # (Manual) 0.0 10^3/uL (0-0.7) 11/29/20 04:05 Basophils # (Manual) 0.2 10^3/uL (0-0.1) H 11/29/20 04:05 Nucleated RBCs 2 % 11/24/20 07:24 Differential Comment MANUAL DIFFERENTIAL 11/29/20 04:05 Manual Slide Review Indicated 11/30/20 17:48 WBC Morphology NORMAL APPEARANCE (NORMAL) 12/01/20 04:20 Platelet Estimate INCREASED (>450,000) (NORMAL) 12/01/20 04:20 Platelet Morphology NORMAL APPEARANCE (NORMAL) 12/01/20 04:20 RBC Morph Micro Appear NORMAL APPEARANCE (NORMAL) 12/01/20 04:20 PT 11.7 secs (9.9-12.6) 11/12/20 09:45 INR 1.0 (0.8-1.2) 11/12/20 09:45 Anti-Xa Level 0.3 U/mL (-0.7) 11/14/20 06:17 Bld Gas Analysis Time 0231 11/13/20 02:20 Sample Site RIGHT RADIAL 11/13/20 02:20 ABG pH 7.29 (7.35-7.45) L 11/13/20 02:20 ABG pCO2 25 mmHg (34-45) L* 11/13/20 02:20 ABG pO2 79 mmHg (80-100) L 11/13/20 02:20 ABG HCO3 11.7 mmol/L (22.0-26.0) L 11/13/20 02:20 ABG Total CO2 12.4 MMOL/L (21.0-29.0) L 11/13/20 02:20 ABG O2 Saturation 95 % (94-98) 11/13/20 02:20 ABG Base Excess -13.2 mmol/L (-2.0-3.0) L 11/13/20 02:20 Jose Test POSITIVE 11/13/20 02:20 Room Air YES 11/13/20 02:20 FiO2 0.21 11/13/20 02:20 Sodium 133 mmol/L (135-145) L 12/01/20 04:20 Potassium 4.0 mmol/L (3.5-5.0) 12/01/20 04:20 Chloride 98 mmol/L (101-111) L 12/01/20 04:20 Carbon Dioxide 25 mmol/L (21-32) 12/01/20 04:20 Anion Gap 10.0 (6-13) 12/01/20 04:20 BUN 14 mg/dL (6-20) 12/01/20 04:20 Creatinine 0.9 mg/dL (0.6-1.2) 12/01/20 04:20 Estimated GFR (MDRD) 88 (>89) L 12/01/20 04:20 Glucose 138 mg/dL (70-100) H 12/01/20 04:20 POC Whole Bld Glucose 119 mg/dL (70 - 100) H 11/17/20 23:45 Lactic Acid 1.2 mmol/L (0.5-2.2) 11/21/20 19:04 Calcium 8.9 mg/dL (8.5-10.3) 12/01/20 04:20 Phosphorus 2.5 mg/dL (2.5-4.6) 11/19/20 06:15 Magnesium 2.1 mg/dL (1.7-2.8) 11/23/20 06:21 Iron 15 ug/dL (45-182) L 11/27/20 04:35 TIBC 193 ug/dL (250-450) L 11/27/20 04:35 % Saturation 8 % (20-50) L 11/27/20 04:35 Transferrin 138 mg/dL (180-329) L 11/27/20 04:35 Total Bilirubin 0.4 mg/dL (0.2-1.0) 11/30/20 17:48 Direct Bilirubin 0.4 mg/dL (0.1-0.5) 11/13/20 00:31 AST 24 IU/L (10-42) 11/30/20 17:48 ALT 35 IU/L (10-60) 11/30/20 17:48 Alkaline Phosphatase 220 IU/L (42-121) H 11/30/20 17:48 Troponin I High Sens 224.9 ng/L (2.3-19.7) H* 11/14/20 08:25 Total Protein 6.9 g/dL (6.7-8.2) 11/30/20 17:48 Albumin 2.4 g/dL (3.2-5.5) L 11/30/20 17:48 Globulin 4.5 g/dL (2.1-4.2) H 11/30/20 17:48 Albumin/Globulin Ratio 0.5 (1.0-2.2) L 11/30/20 17:48 Prealbumin 7 mg/dL (18-45) L 11/25/20 05:52 Triglycerides 119 mg/dL (-149) 11/25/20 05:52 Nasal Screen MRSA (PCR) NEGATIVE (NEGATIVE) 11/13/20 02:00 Stl C. diff Tox B Gene POSITIVE (NEGATIVE) A* 11/17/20 15:30 Last Dose Date 11/25/20 11/25/20 08:21 Last Dose Time 0330 11/25/20 08:21 Vancomycin Trough 15.7 ug/mL (10.0-20.0) 11/25/20 08:21 Blood Type O POSITIVE 11/13/20 00:31 Blood Type Recheck O POSITIVE 11/13/20 01:40 Antibody Screen NEGATIVE 11/13/20 00:31 Crossmatch IS Only See Detail 11/13/20 00:31 - Procedures Procedures: Procedures BYPASS ILEUM TO CUTANEOUS, PERCUTANEOUS ENDOSCOPIC APPROACH (09/13/20) COLONOSCOPY (05/29/13) EXCISION OF RECTUM, OPEN APPROACH (09/13/20) EXCISION OF SIGMOID COLON, OPEN APPROACH (09/13/20) INSERTION OF INFUSION DEV INTO SUP VENA CAVA, PERC APPROACH (09/13/20) INSPECTION OF LOWER INTESTINAL TRACT, ENDO (09/13/20) INTRODUCTION OF NUTRITIONAL INTO CENTRAL VEIN, PERC APPROACH (09/13/20) RELEASE ILEUM, PERCUTANEOUS ENDOSCOPIC APPROACH (09/13/20) RELEASE LEFT LARGE INTESTINE, PERC ENDO APPROACH (09/13/20) Sepsis Event Note (H) - Evaluation Current Stage of Sepsis: Resolved Possible source of Sepsis: positive: GI tract/intra-abdominal - Sepsis Criteria Sepsis Criteria: Recorded Temperature greater than 38.3C or Less than 36C, Recorded Heart Rate greater than 90 bpm, WBC count greater than 12,000 or less than 4000 ABX Reporting Has patient been on IV antibiotics over the past 48 hours?: Yes
[2020-12-01] MEDS: amLODIPine 5 MG TABLET PO SCH (08:12)
[2020-12-01] MEDS: PREGABALIN 100 MG CAPSULE PO SCH ×2 (08:12→20:51)
[2020-12-01] MEDS: CHOLECALCIFEROL 25 MCG TABLET PO SCH (08:12)
[2020-12-01] MEDS: MULTIVITAMIN W/MINERALS TABLET PO SCH (08:12)
[2020-12-01] MEDS: SIMETHICONE CHEW 80 MG TABLET PO SCH ×4 (08:12→20:52)
[2020-12-01] MEDS: HEPARIN 5,000 UNIT/ML VIAL SUBQ SCH ×2 (08:20→20:44)
[2020-12-01] MEDS: SODIUM CHLORIDE 0.9% 1,000 ML IV SCH ×2 (09:29→17:48)
--- NOTE | 2020-12-01 16:56 | PROVIDER PROGRESS NOTE ---
Progress Note Subjective Aggressively irrigated and aspirated right percutaneous drains yesterday with significant purulent output. Cultures positive for E. coli. Explained to the patient is natural history which included the followin. 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 This area was concerning for stricture formation in the setting of severe complicated diverticulitis and necessitated evaluation endoscopically 3. Unable to evaluate this retrograde through the ileocecal valve proceeded antegrade through the efferent limb of his loop ileostomy 4. Likely cause small contained leak of this area necessitating urgent operat mario intervention in the way of takedown 5. Immediately postop syncopal episode concerning for non-STEMI necessitating systemic anticoagulation with heparin drip 6. Likely intra-abdominal hematoma severe acute blood loss anemia in the setting of systemic anticoagulation in the immediate postoperative period necessitating transfusion 7. C. difficile treated; development of intra-abdominal abscess in the milieu of contaminated case and intra-abdominal hematoma, incomplete drainage necessitating aggressive irrigation. Overall feels much better today. Patient spouse at bedside. Pre-Op Diagnosis: H/O LAR for complicated diverticulitis; distal ileal perf on enterosscopy Procedure Performed: 1. Mini laparotomy 2. Diagnostic laparoscopy 3. Ileostomy reversal and small bowel resection 4. Abdominal washout 5. Drain placement 6. Extensive adhesiolysis including right colonic mobilization Post Op Diagnosis: Same; terminal ileal stricturing; right pelvic side wall adhesions Objective Afebrile, hemodynamically acceptable General Appearance: positive: No acute distress Eyes Bilateral: positive: Normal inspection ENT: positive: ENT inspection nml Neck: positive: Nml inspection Respiratory: positive: Chest non-tender, No respiratory distress, Breath sounds nml. negative: Wheezes, Rales, Rhonchi Cardiovascular: positive: Regular rate & rhythm Extremities: positive: Non-tender, Full ROM, Nml appearance Neurologic/Psychiatric: positive: Oriented x3, CN's nml (2-12) Abdomen much softer, far less distended, appropriately tender, no rebound no guarding. Changed drain dressings x2. Aggressively aspirated and irrigated drains x2. Please see EMR for specifics Impression/Plan Postoperative day #19 currently with resolved leukocytosis, resolved C diff colitis with no significant inflammatory changes noted on imaging, with immediate post operative elevated troponin, tachycardia, lactic acidosis, as well as syncopal episode on postoperative day #0. EKG was was without any significant changes. No chest pain and no dyspnea. His echocardiography was without any significant wall motion abnormality. Please see above for clinical summary. Residual abscess cavity addressed with self suction and aggressive irrigation. Plan repeat imaging this afternoon and appreciate speciation of the repeat cultures, jeffers sensitive without ESBL. Plan going forward is as follows: (1) GI - GI ppx. Opiate sparring analgesia. Continue diet. (2) SURGERY - Continue daily dressing changes to the patient's historic ileostomy site. Continue CT-guided percutaneous drains to self suction, flush every 4 hours with 10 cc, sensitivity pending. (3) Renal/Lytes - Renal indices within normal limits. (4) Respiratory - O2 as necessary. Continue IS. (5) Heme - Serial H&H's. Previously transfused 2unit pRBC. Transfused venofer over 5 days completed. H&H stable thus far. (6) Cardiovascular - HD acceptable. Demand ischemia. Echo with no wall motion abnormality. (7) Neuro - Opiate sparring analgesia. (8) Immune/Infectious Disease - Completed vancomycin for C. difficile colitis. Persistent leukocytosis. Persistent abdominal fluid collection. May need PICC. Pending findings on CT. (9) PT/OT
[2020-12-02] MEDS: methocarbamoL 500 MG TABLET PO SCH ×5 (00:45→23:39)
[2020-12-02] MEDS: SODIUM CHLORIDE FLUSH 0.9% 10 ML SYRINGE IVP SCH ×3 (00:45→16:21)
[2020-12-02] MEDS: ACETAMINOPHEN 500 MG TABLET PO PRN ×5 (00:50→23:39)
[2020-12-02] MEDS: oxyCODONE 5 MG TABLET PO PRN ×5 (00:50→23:39)
[2020-12-02] MEDS: SODIUM CHLORIDE 0.9% 1,000 ML IV SCH ×3 (00:54→18:45)
[2020-12-02 04:51] LABS: BASOPHILS % (AUTO) 0.9 %; EOSINOPHILS % (AUTO) 1.3 %; LYMPHOCYTES % (AUTO) 25.2 %; MEAN CORPUSCULAR HEMOGLOBIN 27.3 pg (27.0-31.0); MEAN CORPUSCULAR VOLUME 90.9 fL (80.0-94.0); MEAN PLATELET VOLUME 9.3 fL (7.4-11.4); MONOCYTES % (AUTO) 7.3 %; NEUTROPHILS % (AUTO) 60.2 %; PLT - PLATELET COUNT 644 10^3/uL (130-450)
[2020-12-02 05:02] LABS: ABNORMAL LYMPHS % (MANUAL) 0 %; BAND NEUTROPHILS % (MANUAL) 0 %
[2020-12-02 05:05] LABS: CALCIUM 8.7 mg/dL (8.5-10.3); CREATININE 0.8 mg/dL (0.6-1.2); POTASSIUM 4.1 mmol/L (3.5-5.0)
[2020-12-02 05:18] LABS: EOSINOPHILS # (MANUAL) 0.4 10^3/uL (0-0.7); LYMPHOCYTES # (MANUAL) 2.8 10^3/uL (1.5-3.5); LYMPHOCYTES % (MANUAL) 31 %; MONOCYTES # (MANUAL) 0.5 10^3/uL (0.0-1.0); MYELOCYTES % (MANUAL) 2 %; NEUTROPHILS # (MANUAL) 5.2 10^3/uL (1.5-6.6)
[2020-12-02 05:19] LABS: DIFFERENTIAL COMMENT MANUAL DIFFERENTIAL; PLATELET ESTIMATE, MANUAL INCREASED (>450,000) (NORMAL); PLATELET MORPHOLOGY NORMAL APPEARANCE (NORMAL); RBC MORPHOLOGY (MULTIPLE) 1+ HYPOCHROMASIA (NORMAL); WBC MORPHOLOGY (MULTIPLE) NORMAL APPEARANCE (NORMAL)
[2020-12-02] MEDS: MEROPENEM 1 GM in SODIUM CHLORIDE 0.9% MINIBAG 100 ML IV SCH ×3 (06:06→22:07)
[2020-12-02] MEDS: MULTIVITAMIN W/MINERALS TABLET PO SCH (07:35)
--- NOTE | 2020-12-02 08:10 | PROVIDER PROGRESS NOTE ---
Assessment/Plan - Problem List (1) Sepsis Assessment/Plan: Likely secondary to intra-abdominal abscess. Patient's white blood cell count today is 9. This is an decreased from 13.5 yesterday. Patient continues to significantly improve daily. Zosyn was discontinued 11/29/20 and patient was started on meropenem. Blood cultures pending. Peritoneal fluid from drainage grew E. coli Anticipated discharge in 1 to 2 days. Likely discharge with oral antibiotics for 2 weeks. (2) Intra-abdominal abscess Assessment/Plan: Likely secondary to intra-abdominal abscess. Patient's white blood cell count today is 9. This is an decreased from 13.5 yesterday. Patient continues to significantly improve daily. Zosyn was discontinued 11/29/20 and patient was started on meropenem. Blood cultures pending. Peritoneal fluid from drainage grew E. coli Repeat CT planned by General Surgery for later today 12/02/20 Anticipated discharge in 1 to 2 days. Likely discharge with oral antibiotics for 2 weeks. (3) Status post reversal of ileostomy Assessment/Plan: This has been complicated by postop abdominal abscess. He is now postop day 19. Management as per general surgery. (4) C. difficile diarrhea Assessment/Plan: His diarrhea has resolved. Last day of oral vancomycin was 11/28/20. (5) Postoperative anemia Assessment/Plan: His iron studies are suggestive of acute phase reaction. His hemoglobin has been stable and is increasing on a daily basis with no evidence of bleeding. (6) Hypertension Assessment/Plan: His blood pressure is well controlled on amlodipine. - Current Meds Current Meds: Current Medications Generic Name Dose Route Start Last Admin Trade Name Freq PRN Reason Stop Dose Admin Acetaminophen 500 mg 11/15/20 17:20 12/02/20 06:08 Acetaminophen 500 Mg Tablet PO 500 mg Q4HR PRN Administration Pain or Fever > 38C (100.4F) Amlodipine Besylate 5 mg 11/15/20 16:16 12/01/20 08:12 Amlodipine 5 Mg Tablet PO 5 mg DAILY ASHWIN Administration Cholecalciferol 50 mcg 11/29/20 13:00 12/01/20 08:12 Cholecalciferol 25 Mcg Tablet PO 50 mcg DAILY ASHWIN Administration Heparin Sodium (Porcine) 5,000 unit 11/19/20 21:00 12/01/20 20:44 Heparin 5,000 Unit/Ml Vial SUBQ 5,000 unit BID ASHWIN Administration Meropenem 1 gm/ Sodium 100 mls @ 200 mls/hr 11/29/20 17:00 12/02/20 06:52 Chloride IV Infused Q8HR ASHWIN Infusion Sodium Chloride 1,000 mls @ 125 mls/hr 12/01/20 08:00 12/02/20 06:53 Normal Saline 0.9% IV 125 mls/hr .Q8H ASHWIN Infusion Methocarbamol 500 mg 11/12/20 18:00 12/02/20 06:08 Methocarbamol 500 Mg Tablet PO 500 mg Q6HR ASHWIN Administration Mineral Oil 1 applic 11/16/20 16:23 11/16/20 20:52 Min Oil/Dimethicon/Coconut Oil 92 Gm Tube TOP 1 applic PRN PRN Administration Skin Care Multivitamins/Minerals 1 tab 11/29/20 10:00 12/02/20 07:35 Multivitamin W/Minerals Tablet PO 1 tab DAILYWM ASHWIN Administration Ondansetron HCl 4 mg 11/12/20 17:01 11/21/20 19:13 Ondansetron 4 Mg/2 Ml Vial IVP 4 mg Q6HR PRN Administration Nausea / Vomiting Oxycodone HCl 5 mg 11/16/20 11:35 12/02/20 06:08 Oxycodone 5 Mg Tablet PO 5 mg Q4HR PRN Administration PAIN Pregabalin 100 mg 11/12/20 21:00 12/01/20 20:51 Pregabalin 100 Mg Capsule PO 100 mg BID ASHWIN Administration Simethicone 80 mg 11/19/20 20:00 12/01/20 20:52 Simethicone Chew 80 Mg Tablet PO 80 mg 0900,1300,1800,2100 ASHWIN Administration Sodium Chloride 10 ml 11/13/20 09:00 12/02/20 00:45 Sodium Chloride Flush 0.9% 10 Ml Syringe IVP 10 ml 0100,0900,1700 ASHWIN Administration Sodium Chloride 10 ml 11/13/20 01:35 12/01/20 05:33 Sodium Chloride Flush 0.9% 10 Ml Syringe IVP 10 ml PRN PRN Administration NEEDED PER PROVIDER ORDERS Sodium Chloride 20 ml 11/13/20 04:04 12/01/20 20:51 Sodium Chloride Flush 0.9% 10 Ml Syringe IVP 20 ml PRN PRN Administration After Blood Draw Tramadol HCl 50 mg 11/19/20 19:39 12/01/20 17:45 Tramadol 50 Mg Tablet PO 50 mg Q4HR PRN Administration PAIN - Lab Result Fish Bone Diagrams: 12/02/20 04:45 12/02/20 04:45 - Additional Planning My Orders: My Active Orders 12/01/20 08:00 Sodium Chloride 0.9% [Normal Saline 0.9%] 1,000 ml IV 125 mls/hr 12/03/20 05:00 BMP - BASIC METABOLIC PANEL [CHEM] DAILYLAB CBC - COMP BLD CT W/AUTO DIFF [HEME] DAILYLAB 12/04/20 05:00 BMP - BASIC METABOLIC PANEL [CHEM] DAILYLAB CBC - COMP BLD CT W/AUTO DIFF [HEME] DAILYLAB 12/05/20 05:00 BMP - BASIC METABOLIC PANEL [CHEM] DAILYLAB CBC - COMP BLD CT W/AUTO DIFF [HEME] DAILYLAB 12/06/20 05:00 BMP - BASIC METABOLIC PANEL [CHEM] DAILYLAB CBC - COMP BLD CT W/AUTO DIFF [HEME] DAILYLAB 12/07/20 05:00 BMP - BASIC METABOLIC PANEL [CHEM] DAILYLAB CBC - COMP BLD CT W/AUTO DIFF [HEME] DAILYLAB Subjective - Subjective Patient Reports: Other (Patient was resting comfortably in bed. He continues to feel better every day. He denied any complaints today.) Objective Vital Signs: Vital Signs - 24 hr 12/01/20 12/01/20 12/01/20 09:42 14:00 15:50 Temperature 37.0 C 36.6 C 36.9 C Heart Rate [ 86 82 84 Brachial] Respiratory 18 16 18 Rate Blood Pressure 122/73 [Left Brachial artery] Blood Pressure 124/68 114/80 [Right Brachial artery] O2 Saturation 97 98 95 12/02/20 01:02 Temperature 36.7 C Heart Rate [ 73 Brachial] Respiratory 17 Rate Blood Pressure 128/75 [Left Brachial artery] Blood Pressure [Right Brachial artery] O2 Saturation 99 Oxygen O2 Source Room air I&O (Last 24 Hrs): Intake and Output Totals x24h 11/30/20 12/01/20 12/02/20 23:59 23:59 23:59 Intake Total 1740 2764.167 1062.500 Output Total 1085 3155 1610 Balance 655 -390.833 -547.500 General: Alert, Oriented x3, No acute distress HEENT: PERRLA, EOMI Neck: Supple, No JVD Neuro: Alert, Non Focal, Oriented Times 3 Cardiovascular: Regular rate Respiratory: Chest non-tender, No respiratory distress, Breath sounds nml Abdomen: Normal bowel sounds, Soft, No tenderness, No masses Extremities: No clubbing, No edema, No tenderness/swelling Skin: No rashes, No breakdown - Results Results: Laboratory Results WBC 9.0 x10^3/uL (4.8-10.8) 12/02/20 04:45 RBC 3.30 10^6/uL (4.70-6.10) L 12/02/20 04:45 Hgb 9.0 g/dL (14.0-18.0) L 12/02/20 04:45 Hct 30.0 % (42.0-52.0) L 12/02/20 04:45 MCV 90.9 fL (80.0-94.0) 12/02/20 04:45 MCH 27.3 pg (27.0-31.0) 12/02/20 04:45 MCHC 30.0 g/dL (32.0-36.0) L 12/02/20 04:45 RDW 14.0 % (12.0-15.0) 12/02/20 04:45 Plt Count 644 10^3/uL (130-450) H 12/02/20 04:45 MPV 9.3 fL (7.4-11.4) 12/02/20 04:45 Neut # (Auto) Not Reportable 12/02/20 04:45 Lymph # (Auto) Not Reportable 12/02/20 04:45 Foard # (Auto) Not Reportable 12/02/20 04:45 Eos # (Auto) Not Reportable 12/02/20 04:45 Baso # (Auto) Not Reportable 12/02/20 04:45 Absolute Nucleated RBC Not Reportable 12/02/20 04:45 Total Counted 100 12/02/20 04:45 Band Neuts % (Manual) 0 % (0-10) 12/02/20 04:45 Abnorm Lymph % (Manual) 0 % 12/02/20 04:45 Metamyelocytes % 1 % (-0) H 11/29/20 04:05 Myelocytes % 2 % (-0) H 12/02/20 04:45 Plasma Cell % (Manual) 1 % 11/25/20 05:52 Nucleated RBC % Not Reportable 12/02/20 04:45 Neutrophils # (Manual) 5.2 10^3/uL (1.5-6.6) 12/02/20 04:45 Lymphocytes # (Manual) 2.8 10^3/uL (1.5-3.5) 12/02/20 04:45 Monocytes # (Manual) 0.5 10^3/uL (0.0-1.0) 12/02/20 04:45 Eosinophils # (Manual) 0.4 10^3/uL (0-0.7) 12/02/20 04:45 Basophils # (Manual) 0.0 10^3/uL (0-0.1) 12/02/20 04:45 Nucleated RBCs 2 % 11/24/20 07:24 Differential Comment MANUAL DIFFERENTIAL 12/02/20 04:45 Manual Slide Review Indicated 11/30/20 17:48 WBC Morphology NORMAL APPEARANCE (NORMAL) 12/02/20 04:45 Platelet Estimate INCREASED (>450,000) (NORMAL) 12/02/20 04:45 Platelet Morphology NORMAL APPEARANCE (NORMAL) 12/02/20 04:45 RBC Morph Micro Appear 1+ HYPOCHROMASIA (NORMAL) 12/02/20 04:45 PT 11.7 secs (9.9-12.6) 11/12/20 09:45 INR 1.0 (0.8-1.2) 11/12/20 09:45 Anti-Xa Level 0.3 U/mL (-0.7) 11/14/20 06:17 Bld Gas Analysis Time 0231 11/13/20 02:20 Sample Site RIGHT RADIAL 11/13/20 02:20 ABG pH 7.29 (7.35-7.45) L 11/13/20 02:20 ABG pCO2 25 mmHg (34-45) L* 11/13/20 02:20 ABG pO2 79 mmHg (80-100) L 11/13/20 02:20 ABG HCO3 11.7 mmol/L (22.0-26.0) L 11/13/20 02:20 ABG Total CO2 12.4 MMOL/L (21.0-29.0) L 11/13/20 02:20 ABG O2 Saturation 95 % (94-98) 11/13/20 02:20 ABG Base Excess -13.2 mmol/L (-2.0-3.0) L 11/13/20 02:20 Jose Test POSITIVE 11/13/20 02:20 Room Air YES 11/13/20 02:20 FiO2 0.21 11/13/20 02:20 Sodium 137 mmol/L (135-145) 12/02/20 04:45 Potassium 4.1 mmol/L (3.5-5.0) 12/02/20 04:45 Chloride 103 mmol/L (101-111) 12/02/20 04:45 Carbon Dioxide 25 mmol/L (21-32) 12/02/20 04:45 Anion Gap 9.0 (6-13) 12/02/20 04:45 BUN 15 mg/dL (6-20) 12/02/20 04:45 Creatinine 0.8 mg/dL (0.6-1.2) 12/02/20 04:45 Estimated GFR (MDRD) 101 (>89) 12/02/20 04:45 Glucose 102 mg/dL (70-100) H 12/02/20 04:45 POC Whole Bld Glucose 119 mg/dL (70 - 100) H 11/17/20 23:45 Lactic Acid 1.2 mmol/L (0.5-2.2) 11/21/20 19:04 Calcium 8.7 mg/dL (8.5-10.3) 12/02/20 04:45 Phosphorus 2.5 mg/dL (2.5-4.6) 11/19/20 06:15 Magnesium 2.1 mg/dL (1.7-2.8) 11/23/20 06:21 Iron 15 ug/dL (45-182) L 11/27/20 04:35 TIBC 193 ug/dL (250-450) L 11/27/20 04:35 % Saturation 8 % (20-50) L 11/27/20 04:35 Transferrin 138 mg/dL (180-329) L 11/27/20 04:35 Total Bilirubin 0.4 mg/dL (0.2-1.0) 11/30/20 17:48 Direct Bilirubin 0.4 mg/dL (0.1-0.5) 11/13/20 00:31 AST 24 IU/L (10-42) 11/30/20 17:48 ALT 35 IU/L (10-60) 11/30/20 17:48 Alkaline Phosphatase 220 IU/L (42-121) H 11/30/20 17:48 Troponin I High Sens 224.9 ng/L (2.3-19.7) H* 11/14/20 08:25 Total Protein 6.9 g/dL (6.7-8.2) 11/30/20 17:48 Albumin 2.4 g/dL (3.2-5.5) L 11/30/20 17:48 Globulin 4.5 g/dL (2.1-4.2) H 11/30/20 17:48 Albumin/Globulin Ratio 0.5 (1.0-2.2) L 11/30/20 17:48 Prealbumin 7 mg/dL (18-45) L 11/25/20 05:52 Triglycerides 119 mg/dL (-149) 11/25/20 05:52 Nasal Screen MRSA (PCR) NEGATIVE (NEGATIVE) 11/13/20 02:00 Stl C. diff Tox B Gene POSITIVE (NEGATIVE) A* 11/17/20 15:30 Last Dose Date 11/25/20 11/25/20 08:21 Last Dose Time 0330 11/25/20 08:21 Vancomycin Trough 15.7 ug/mL (10.0-20.0) 11/25/20 08:21 Ref Lab Test Result REPORT 11/20/20 08:26 Blood Type O POSITIVE 11/13/20 00:31 Blood Type Recheck O POSITIVE 11/13/20 01:40 Antibody Screen NEGATIVE 11/13/20 00:31 Crossmatch IS Only See Detail 11/13/20 00:31 - Procedures Procedures: Procedures BYPASS ILEUM TO CUTANEOUS, PERCUTANEOUS ENDOSCOPIC APPROACH (09/13/20) COLONOSCOPY (05/29/13) EXCISION OF RECTUM, OPEN APPROACH (09/13/20) EXCISION OF SIGMOID COLON, OPEN APPROACH (09/13/20) INSERTION OF INFUSION DEV INTO SUP VENA CAVA, PERC APPROACH (09/13/20) INSPECTION OF LOWER INTESTINAL TRACT, ENDO (09/13/20) INTRODUCTION OF NUTRITIONAL INTO CENTRAL VEIN, PERC APPROACH (09/13/20) RELEASE ILEUM, PERCUTANEOUS ENDOSCOPIC APPROACH (09/13/20) RELEASE LEFT LARGE INTESTINE, PERC ENDO APPROACH (09/13/20) Sepsis Event Note (H) - Evaluation Current Stage of Sepsis: Resolved Possible source of Sepsis: positive: GI tract/intra-abdominal - Sepsis Criteria Sepsis Criteria: Recorded Temperature greater than 38.3C or Less than 36C, Recorded Heart Rate greater than 90 bpm, WBC count greater than 12,000 or less than 4000 ABX Reporting Has patient been on IV antibiotics over the past 48 hours?: Yes
[2020-12-02] MEDS: HEPARIN 5,000 UNIT/ML VIAL SUBQ SCH ×2 (08:27→20:26)
[2020-12-02] MEDS: CHOLECALCIFEROL 25 MCG TABLET PO SCH (08:28)
[2020-12-02] MEDS: amLODIPine 5 MG TABLET PO SCH (08:29)
[2020-12-02] MEDS: PREGABALIN 100 MG CAPSULE PO SCH ×2 (08:29→20:27)
[2020-12-02] MEDS: SIMETHICONE CHEW 80 MG TABLET PO SCH ×4 (08:35→20:27)
[2020-12-02] MEDS ORDERED: IOPAMIDOL-300 50 ML VIAL ONE (10:53)
[2020-12-02] MEDS ORDERED: IOPAMIDOL-300 100 ML VIAL ONE (10:53)
[2020-12-02] MEDS: traMADol 50 MG TABLET PO PRN ×2 (12:48→20:27)
--- NOTE | 2020-12-02 17:13 | PROVIDER PROGRESS NOTE ---
Progress Note Subjective Have continued to aggressively irrigated and aspirated right percutaneous drains with significant purulent output. Cultures positive for E. coli, Enterococcus aveum, and Right for B. faecis. Explained to the patient natural history which included the followin. 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 This area was concerning for stricture formation in the setting of severe complicated diverticulitis and necessitated evaluation endoscopically 3. Unable to evaluate this retrograde through the ileocecal valve proceeded antegrade through the efferent limb of his loop ileostomy 4. Likely cause small contained leak of this area necessitating urgent operative intervention in the way of takedown 5. Immediately postop syncopal episode concerning for non-STEMI necessitating systemic anticoagulation with heparin drip 6. Likely intra-abdominal hematoma severe acute blood loss anemia in the setting of systemic anticoagulation in the immediate postoperative period necessitating transfusion 7. C. difficile treated; development of intra-abdominal abscess in the milieu of contaminated case and intra-abdominal hematoma, incomplete drainage necessitating aggressive irrigation. Overall feels much better today. Pending CT scan today. Pre-Op Diagnosis: H/O LAR for complicated diverticulitis; distal ileal perf on enterosscopy Procedure Performed: 1. Mini laparotomy 2. Diagnostic laparoscopy 3. Ileostomy reversal and small bowel resection 4. Abdominal washout 5. Drain placement 6. Extensive adhesiolysis including right colonic mobilization Post Op Diagnosis: Same; terminal ileal stricturing; right pelvic side wall adhesions Objective Afebrile, hemodynamically acceptable General Appearance: positive: No acute distress Eyes Bilateral: positive: Normal inspection ENT: positive: ENT inspection nml Neck: positive: Nml inspection Respiratory: positive: Chest non-tender, No respiratory distress, Breath sounds nml. negative: Wheezes, Rales, Rhonchi Cardiovascular: positive: Regular rate & rhythm Extremities: positive: Non-tender, Full ROM, Nml appearance Neurologic/Psychiatric: positive: Oriented x3, CN's nml (2-12) Abdomen much softer, far less distended, appropriately tender, no rebound no guarding. Changed drain dressings x2. Aggressively aspirated and irrigated drains x2. Please see EMR for specifics Impression/Plan Postoperative day #20 currently with resolved leukocytosis, resolved C diff colitis with no significant inflammatory changes noted on imaging, with immediate post operative elevated troponin, tachycardia, lactic acidosis, as well as syncopal episode on postoperative day #0. EKG was was without any significant changes. No chest pain and no dyspnea. His echocardiography was without any significant wall motion abnormality. Please see above for clinical summary. Residual abscess cavity addressed with self suction and aggressive irrigation. Plan repeat imaging this afternoon and appreciate speciation of the repeat cultures, jeffers sensitive without ESBL. Plan going forward is as follows: (1) GI - GI ppx. Opiate sparring analgesia. Continue diet. (2) SURGERY - Continue daily dressing changes to the patient's historic ileostomy site. Continue CT-guided percutaneous drains to self suction, flush every 4 hours with 10 cc, sensitivity pending. (3) Renal/Lytes - Renal indices within normal limits. (4) Respiratory - O2 as necessary. Continue IS. (5) Heme - Serial H&H's. Previously transfused 2unit pRBC. Transfused venofer over 5 days completed. H&H stable thus far. (6) Cardiovascular - HD acceptable. Demand ischemia. Echo with no wall motion abnormality. (7) Neuro - Opiate sparring analgesia. (8) Immune/Infectious Disease - Completed vancomycin for C. difficile colitis. Persistent leukocytosis. Persistent abdominal fluid collection. Pending CT. Will await final report. Cultures also pending final results, Abdominal and Right arm. (9) PT/OT
[2020-12-02] MEDS ORDERED: IOPAMIDOL-300 100 ML VIAL IVP ONE (17:41)
[2020-12-02] MEDS ORDERED: IOPAMIDOL-300 50 ML VIAL PO ONE (17:43)
[2020-12-03] MEDS: SODIUM CHLORIDE 0.9% 1,000 ML IV SCH ×3 (03:30→22:47)
[2020-12-03] MEDS: SODIUM CHLORIDE FLUSH 0.9% 10 ML SYRINGE IVP SCH ×3 (04:31→17:14)
[2020-12-03 04:49] LABS: BASOPHILS # (AUTO) 0.1 10^3/uL (0.0-0.1); BASOPHILS % (AUTO) 0.7 %; EOSINOPHILS # (AUTO) 0.1 10^3/uL (0.0-0.7); EOSINOPHILS % (AUTO) 1.2 %; HCT - HEMATOCRIT 28.8 % (42.0-52.0); HGB - HEMOGLOBIN 8.9 g/dL (14.0-18.0); LYMPHOCYTES # (AUTO) 2.1 10^3/uL (1.5-3.5); LYMPHOCYTES % (AUTO) 21.4 %; MEAN CORPUSCULAR HEMOGLOBIN 27.7 pg (27.0-31.0); MEAN CORPUSCULAR HGB CONC 30.9 g/dL (32.0-36.0); MEAN CORPUSCULAR VOLUME 89.7 fL (80.0-94.0); MEAN PLATELET VOLUME 9.1 fL (7.4-11.4); MONOCYTES # (AUTO) 0.6 10^3/uL (0.0-1.0); MONOCYTES % (AUTO) 6.5 %; NEUTROPHILS # (AUTO) 6.4 10^3/uL (1.5-6.6); NEUTROPHILS % (AUTO) 64.9 %; PLT - PLATELET COUNT 576 10^3/uL (130-450); RED BLOOD COUNT 3.21 10^6/uL (4.70-6.10); RED CELL DISTRIBUTION WIDTH 14.1 % (12.0-15.0); WHITE BLOOD COUNT 9.9 x10^3/uL (4.8-10.8)
[2020-12-03 04:55] LABS: CALCIUM 8.9 mg/dL (8.5-10.3); CREATININE 0.8 mg/dL (0.6-1.2); POTASSIUM 4.2 mmol/L (3.5-5.0)
[2020-12-03 05:12] LABS: PLATELET ESTIMATE, MANUAL INCREASED (>450,000) (NORMAL); PLATELET MORPHOLOGY NORMAL APPEARANCE (NORMAL); RBC MORPHOLOGY (MULTIPLE) NORMAL APPEARANCE (NORMAL); WBC MORPHOLOGY (MULTIPLE) NORMAL APPEARANCE (NORMAL)
[2020-12-03] MEDS: methocarbamoL 500 MG TABLET PO SCH ×3 (05:42→17:44)
[2020-12-03] MEDS: ACETAMINOPHEN 500 MG TABLET PO PRN ×4 (05:42→21:31)
[2020-12-03] MEDS: oxyCODONE 5 MG TABLET PO PRN ×4 (05:43→21:31)
[2020-12-03] MEDS: MEROPENEM 1 GM in SODIUM CHLORIDE 0.9% MINIBAG 100 ML IV SCH ×3 (05:49→21:31)
[2020-12-03] MEDS: PREGABALIN 100 MG CAPSULE PO SCH ×2 (08:24→21:31)
[2020-12-03] MEDS: CHOLECALCIFEROL 25 MCG TABLET PO SCH (08:24)
[2020-12-03] MEDS: amLODIPine 5 MG TABLET PO SCH (08:24)
[2020-12-03] MEDS: MULTIVITAMIN W/MINERALS TABLET PO SCH (08:24)
[2020-12-03] MEDS: traMADol 50 MG TABLET PO PRN ×3 (08:24→19:10)
[2020-12-03] MEDS: SIMETHICONE CHEW 80 MG TABLET PO SCH ×4 (08:24→21:31)
[2020-12-03] MEDS: HEPARIN 5,000 UNIT/ML VIAL SUBQ SCH ×2 (08:28→21:31)
--- NOTE | 2020-12-03 09:02 | PROVIDER PROGRESS NOTE ---
Assessment/Plan - Problem List (1) Intra-abdominal abscess Assessment/Plan: His intra-abdominal abscess required tube drains placed. Patient continues to significantly improve daily. Zosyn was discontinued 11/29/20 and patient was started on meropenem. Blood cultures pending from 11/20/20 (had GPC, which was sent to reference lab). Blood cx are neg from 11/22/20 however. Peritoneal fluid from drainage grew E. coli Repeat CT was done 12/02/20, results are still pending. Anticipated discharge in 1 to 2 days. Possible discharge with oral antibiotics for 2 weeks. (2) Status post reversal of ileostomy Assessment/Plan: This has been complicated by postop abdominal abscess. He is now postop day 20. Management as per general surgery. (3) Postoperative anemia Assessment/Plan: His iron studies are suggestive of acute phase reaction. His hemoglobin has been stable around 9, with no evidence of bleeding. (4) Hypertension Assessment/Plan: His blood pressure is well controlled on amlodipine. (5) C. difficile diarrhea Assessment/Plan: His diarrhea has resolved. Last day of oral vancomycin was 11/28/20. (6) Sepsis Assessment/Plan: Resolved. Likely secondary to intra-abdominal abscess. Peritoneal fluid from drainage grew E. coli Patient's white blood cell count today is 9.9. This is an decreased from 13 two days ago, then was 9 yesterday. Zosyn was discontinued 11/29/20 and patient was started on meropenem. Blood cultures pending from 11/20/20 (had GPC). Blood cx are neg from 11/22/20 however. Anticipated discharge in 1 to 2 days. Likely discharge with oral antibiotics for 2 weeks. - Current Meds Current Meds: Current Medications Generic Name Dose Route Start Last Admin Trade Name Freq PRN Reason Stop Dose Admin Acetaminophen 500 mg 11/15/20 17:20 12/03/20 05:42 Acetaminophen 500 Mg Tablet PO 500 mg Q4HR PRN Administration Pain or Fever > 38C (100.4F) Amlodipine Besylate 5 mg 11/15/20 16:16 12/03/20 08:24 Amlodipine 5 Mg Tablet PO 5 mg DAILY ASHWIN Administration Cholecalciferol 50 mcg 11/29/20 13:00 12/03/20 08:24 Cholecalciferol 25 Mcg Tablet PO 50 mcg DAILY ASHWIN Administration Heparin Sodium (Porcine) 5,000 unit 11/19/20 21:00 12/03/20 08:28 Heparin 5,000 Unit/Ml Vial SUBQ 5,000 unit BID ASHWIN Administration Meropenem 1 gm/ Sodium 100 mls @ 200 mls/hr 11/29/20 17:00 12/03/20 06:43 Chloride IV Infused Q8HR ASHWIN Infusion Sodium Chloride 1,000 mls @ 125 mls/hr 12/01/20 08:00 12/03/20 06:43 Normal Saline 0.9% IV 125 mls/hr .Q8H ASHWIN Infusion Methocarbamol 500 mg 11/12/20 18:00 12/03/20 05:42 Methocarbamol 500 Mg Tablet PO 500 mg Q6HR ASHWIN Administration Mineral Oil 1 applic 11/16/20 16:23 11/16/20 20:52 Min Oil/Dimethicon/Coconut Oil 92 Gm Tube TOP 1 applic PRN PRN Administration Skin Care Multivitamins/Minerals 1 tab 11/29/20 10:00 12/03/20 08:24 Multivitamin W/Minerals Tablet PO 1 tab DAILYWM ASHWIN Administration Ondansetron HCl 4 mg 11/12/20 17:01 11/21/20 19:13 Ondansetron 4 Mg/2 Ml Vial IVP 4 mg Q6HR PRN Administration Nausea / Vomiting Oxycodone HCl 5 mg 11/16/20 11:35 12/03/20 05:43 Oxycodone 5 Mg Tablet PO 5 mg Q4HR PRN Administration PAIN Pregabalin 100 mg 11/12/20 21:00 12/03/20 08:24 Pregabalin 100 Mg Capsule PO 100 mg BID ASHWIN Administration Simethicone 80 mg 11/19/20 20:00 12/03/20 08:24 Simethicone Chew 80 Mg Tablet PO 80 mg 0900,1300,1800,2100 ASHWIN Administration Sodium Chloride 10 ml 11/13/20 09:00 12/03/20 08:25 Sodium Chloride Flush 0.9% 10 Ml Syringe IVP Not Given 0100,0900,1700 ASHWIN Sodium Chloride 10 ml 11/13/20 01:35 12/01/20 05:33 Sodium Chloride Flush 0.9% 10 Ml Syringe IVP 10 ml PRN PRN Administration NEEDED PER PROVIDER ORDERS Sodium Chloride 20 ml 11/13/20 04:04 04/18/21 20:51 Sodium Chloride Flush 0.9% 10 Ml Syringe IVP 20 ml PRN PRN Administration After Blood Draw Tramadol HCl 50 mg 11/19/20 19:39 12/03/20 08:24 Tramadol 50 Mg Tablet PO 50 mg Q4HR PRN Administration PAIN - Lab Result Fish Bone Diagrams: 12/03/20 04:40 12/03/20 04:40 Subjective - Subjective Patient Reports: Feeling Better, Resting Comfortably, No Complaints Objective Vital Signs: Vital Signs - 24 hr 12/02/20 12/02/20 12/03/20 14:00 15:40 00:06 Temperature 36.4 C L 36.9 C 36.6 C Heart Rate [ 74 86 77 Brachial] Respiratory 18 18 18 Rate Blood Pressure 132/81 H [Left Brachial artery] Blood Pressure 114/84 H 130/81 H [Right Brachial artery] O2 Saturation 99 99 99 12/03/20 07:54 Temperature Heart Rate [ 78 Brachial] Respiratory 16 Rate Blood Pressure 136/80 H [Left Brachial artery] Blood Pressure [Right Brachial artery] O2 Saturation 100 Oxygen O2 Source Room air I&O (Last 24 Hrs): Intake and Output Totals x24h 12/01/20 12/02/20 12/03/20 23:59 23:59 23:59 Intake Total 2764.167 3903.333 2595.833 Output Total 3155 3736 1000 Balance -390.833 407.970 4827.833 General: Alert, Oriented x3 HEENT: Atraumatic, EOMI Neck: Supple, No JVD Neuro: Alert, Non Focal Cardiovascular: Regular rate Respiratory: No respiratory distress Abdomen: Soft Extremities: No edema - Results Results: Laboratory Results WBC 9.9 x10^3/uL (4.8-10.8) 12/03/20 04:40 RBC 3.21 10^6/uL (4.70-6.10) L 12/03/20 04:40 Hgb 8.9 g/dL (14.0-18.0) L 12/03/20 04:40 Hct 28.8 % (42.0-52.0) L 12/03/20 04:40 MCV 89.7 fL (80.0-94.0) 12/03/20 04:40 MCH 27.7 pg (27.0-31.0) 12/03/20 04:40 MCHC 30.9 g/dL (32.0-36.0) L 12/03/20 04:40 RDW 14.1 % (12.0-15.0) 12/03/20 04:40 Plt Count 576 10^3/uL (130-450) H 12/03/20 04:40 MPV 9.1 fL (7.4-11.4) 12/03/20 04:40 Neut # (Auto) 6.4 10^3/uL (1.5-6.6) 12/03/20 04:40 Lymph # (Auto) 2.1 10^3/uL (1.5-3.5) 12/03/20 04:40 [place] # (Auto) 0.6 10^3/uL (0.0-1.0) 12/03/20 04:40 Eos # (Auto) 0.1 10^3/uL (0.0-0.7) 12/03/20 04:40 Baso # (Auto) 0.1 10^3/uL (0.0-0.1) 12/03/20 04:40 Absolute Nucleated RBC 0.00 x10^3/uL 12/03/20 04:40 Total Counted 100 12/02/20 04:45 Band Neuts % (Manual) 0 % (0-10) 12/02/20 04:45 Abnorm Lymph % (Manual) 0 % 12/02/20 04:45 Metamyelocytes % 1 % (-0) H 11/29/20 04:05 Myelocytes % 2 % (-0) H 12/02/20 04:45 Plasma Cell % (Manual) 1 % 11/25/20 05:52 Nucleated RBC % 0.0 /100WBC 12/03/20 04:40 Neutrophils # (Manual) 5.2 10^3/uL (1.5-6.6) 12/02/20 04:45 Lymphocytes # (Manual) 2.8 10^3/uL (1.5-3.5) 12/02/20 04:45 Monocytes # (Manual) 0.5 10^3/uL (0.0-1.0) 12/02/20 04:45 Eosinophils # (Manual) 0.4 10^3/uL (0-0.7) 12/02/20 04:45 Basophils # (Manual) 0.0 10^3/uL (0-0.1) 12/02/20 04:45 Nucleated RBCs 2 % 11/24/20 07:24 Differential Comment MANUAL DIFFERENTIAL 12/02/20 04:45 Manual Slide Review Indicated 11/30/20 17:48 WBC Morphology NORMAL APPEARANCE (NORMAL) 12/03/20 04:40 Platelet Estimate INCREASED (>450,000) (NORMAL) 12/03/20 04:40 Platelet Morphology NORMAL APPEARANCE (NORMAL) 12/03/20 04:40 RBC Morph Micro Appear NORMAL APPEARANCE (NORMAL) 12/03/20 04:40 PT 11.7 secs (9.9-12.6) 11/12/20 09:45 INR 1.0 (0.8-1.2) 11/12/20 09:45 Anti-Xa Level 0.3 U/mL (-0.7) 11/14/20 06:17 Bld Gas Analysis Time 0231 11/13/20 02:20 Sample Site RIGHT RADIAL 11/13/20 02:20 ABG pH 7.29 (7.35-7.45) L 11/13/20 02:20 ABG pCO2 25 mmHg (34-45) L* 11/13/20 02:20 ABG pO2 79 mmHg (80-100) L 11/13/20 02:20 ABG HCO3 11.7 mmol/L (22.0-26.0) L 11/13/20 02:20 ABG Total CO2 12.4 MMOL/L (21.0-29.0) L 11/13/20 02:20 ABG O2 Saturation 95 % (94-98) 11/13/20 02:20 ABG Base Excess -13.2 mmol/L (-2.0-3.0) L 11/13/20 02:20 Jose Test POSITIVE 11/13/20 02:20 Room Air YES 11/13/20 02:20 FiO2 0.21 11/13/20 02:20 Sodium 140 mmol/L (135-145) 12/03/20 04:40 Potassium 4.2 mmol/L (3.5-5.0) 12/03/20 04:40 Chloride 105 mmol/L (101-111) 12/03/20 04:40 Carbon Dioxide 27 mmol/L (21-32) 12/03/20 04:40 Anion Gap 8.0 (6-13) 12/03/20 04:40 BUN 13 mg/dL (6-20) 12/03/20 04:40 Creatinine 0.8 mg/dL (0.6-1.2) 12/03/20 04:40 Estimated GFR (MDRD) 101 (>89) 12/03/20 04:40 Glucose 112 mg/dL (70-100) H 12/03/20 04:40 POC Whole Bld Glucose 119 mg/dL (70 - 100) H 11/17/20 23:45 Lactic Acid 1.2 mmol/L (0.5-2.2) 11/21/20 19:04 Calcium 8.9 mg/dL (8.5-10.3) 12/03/20 04:40 Phosphorus 2.5 mg/dL (2.5-4.6) 11/19/20 06:15 Magnesium 2.1 mg/dL (1.7-2.8) 11/23/20 06:21 Iron 15 ug/dL (45-182) L 11/27/20 04:35 TIBC 193 ug/dL (250-450) L 11/27/20 04:35 % Saturation 8 % (20-50) L 11/27/20 04:35 Transferrin 138 mg/dL (180-329) L 11/27/20 04:35 Total Bilirubin 0.4 mg/dL (0.2-1.0) 11/30/20 17:48 Direct Bilirubin 0.4 mg/dL (0.1-0.5) 11/13/20 00:31 AST 24 IU/L (10-42) 11/30/20 17:48 ALT 35 IU/L (10-60) 11/30/20 17:48 Alkaline Phosphatase 220 IU/L (42-121) H 11/30/20 17:48 Troponin I High Sens 224.9 ng/L (2.3-19.7) H* 11/14/20 08:25 Total Protein 6.9 g/dL (6.7-8.2) 11/30/20 17:48 Albumin 2.4 g/dL (3.2-5.5) L 11/30/20 17:48 Globulin 4.5 g/dL (2.1-4.2) H 11/30/20 17:48 Albumin/Globulin Ratio 0.5 (1.0-2.2) L 11/30/20 17:48 Prealbumin 7 mg/dL (18-45) L 11/25/20 05:52 Triglycerides 119 mg/dL (-149) 11/25/20 05:52 Nasal Screen MRSA (PCR) NEGATIVE (NEGATIVE) 11/13/20 02:00 Stl C. diff Tox B Gene POSITIVE (NEGATIVE) A* 11/17/20 15:30 Last Dose Date 11/25/20 11/25/20 08:21 Last Dose Time 0330 11/25/20 08:21 Vancomycin Trough 15.7 ug/mL (10.0-20.0) 11/25/20 08:21 Ref Lab Test Result REPORT 11/20/20 08:26 Blood Type O POSITIVE 11/13/20 00:31 Blood Type Recheck O POSITIVE 11/13/20 01:40 Antibody Screen NEGATIVE 11/13/20 00:31 Crossmatch IS Only See Detail 11/13/20 00:31 - Procedures Procedures: Procedures BYPASS ILEUM TO CUTANEOUS, PERCUTANEOUS ENDOSCOPIC APPROACH (09/13/20) COLONOSCOPY (05/29/13) EXCISION OF RECTUM, OPEN APPROACH (09/13/20) EXCISION OF SIGMOID COLON, OPEN APPROACH (09/13/20) INSERTION OF INFUSION DEV INTO SUP VENA CAVA, PERC APPROACH (09/13/20) INSPECTION OF LOWER INTESTINAL TRACT, ENDO (09/13/20) INTRODUCTION OF NUTRITIONAL INTO CENTRAL VEIN, PERC APPROACH (09/13/20) RELEASE ILEUM, PERCUTANEOUS ENDOSCOPIC APPROACH (09/13/20) RELEASE LEFT LARGE INTESTINE, PERC ENDO APPROACH (09/13/20) Sepsis Event Note (H) - Evaluation Current Stage of Sepsis: Resolved Possible source of Sepsis: positive: GI tract/intra-abdominal - Sepsis Criteria Sepsis Criteria: Recorded Temperature greater than 38.3C or Less than 36C, Recorded Heart Rate greater than 90 bpm, WBC count greater than 12,000 or less than 4000 ABX Reporting Has patient been on IV antibiotics over the past 48 hours?: Yes
--- NOTE | 2020-12-03 16:30 | CT Report ---
PROCEDURE: Abdomen/Pelvis W INDICATIONS: evaluate for residual fluid collection, abd CONTRAST: IV CONTRAST: Isovue 300 ml: 100 PO CONTRAST: Isovue 300 ml50 TECHNIQUE: After the administration of contrast, 5 mm thick sections acquired from the diaphragms to the sym physis. 5 mm thick coronal and sagittal reformats were acquired. For radiation dose reduction, the following was used: automated exposure control, adjustment of mA and/or kV according to patient size . COMPARISON: Prior CT abdomen/pelvis 11/20/20, 11/28/2020 FINDINGS: Image quality: Excellent. ABDOMEN: Lung bases: Lung bases are improved with a lesser degree of atelectasis and pleural effusion at the right lung base, now mild. At the left lung base there is mild scarring or atelectasis posterolateral ly.. Heart size is normal. Solid organs: Liver and spleen are normal in size and enhancement. Gallbladder appears free of calc ulus or inflammation. Biliary system is non dilated. Pancreas enhances normally. No adrenal nodule s. Kidneys demonstrate normal size and enhancement, without hydronephrosis. Peritoneum and bowel: Bowel loops demonstrate normal wall thickness and caliber. The large abscess c avity involving the right abdomen and pelvis has sequentially diminished in size with 2 percutaneous pleural drains present from above and below and with the remaining fluid and small amount of containe d gas measuring only 1.5-2 cm in maximal thickness along the subhepatic space in the left paracolic g utter. At the lower catheter margin additional small amounts of remaining fluid and containing gas ar e present. What appears to be an enteric staple line is present at the right lower quadrant margin of the colon.. Nodes and vessels: No retroperitoneal or mesenteric adenopathy by size criteria. Aorta and inferior vena cava are normal in size. Miscellaneous: No ventral hernias. PELVIS: Genitourinary: Bladder wall thickness is normal. Miscellaneous: No inguinal hernias or adenopathy. Continued resolution of the solid portion of the l eft lateral peritoneal abscess, contained. No new fluid collection or increasing fluid collection is found. Minimal remaining rim-enhancing fluid is crescentic crossing from right towards the midline wi thin the lower pelvis. In this area the fluid measures only 8 mm in AP dimension. Bones: No suspicious bony lesions. No vertebral body compression fractures. IMPRESSION: The large right sided predominant abscess has sequentially diminished in size with now o nly a small amount of residual fluid remaining within the right subhepatic space and right paracolic gutter extending into the right lower quadrant. No new fluid collection is seen. 2 surgical drains ar e positioned for continued drainage from above and below on the right. Reviewed by: Dev Mcmanus MD on 12/03/2020 4:29 PM PDT Approved by: Dev Mcmanus MD on 12/03/2020 4:29 PM PDT Station ID: [id number]
--- NOTE | 2020-12-03 19:13 | PROVIDER PROGRESS NOTE ---
Progress Note Subjective Aggressively irrigated and aspirated right percutaneous drains daily with significant purulent output that has plateaued and now is minimal. Status post CAT scan yesterday (see below for results) please see below for microbiology. Cultures positive: 1. [place] coli pansensitive, abdominal/peritoneal culture 2. Enterococcus avium pansensitive, abdominal/peritoneal culture 3. Bacteroides faecis sensitive to Carbapenem, full report pending; blood culture Explained to the patient is natural history which included the followin. 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 This area was concerning for stricture formation in the setting of severe complicated diverticulitis and necessitated evaluation endoscopically 3. Unable to evaluate this retrograde through the ileocecal valve proceeded antegrade through the efferent limb of his loop ileostomy 4. Likely cause small contained leak of this area necessitating urgent operative intervention in the way of takedown 5. Immediately postop syncopal episode concerning for non-STEMI necessitating systemic anticoagulation with heparin drip 6. Likely intra-abdominal hematoma severe acute blood loss anemia in the setting of systemic anticoagulation in the immediate postoperative period necessitating transfusion 7. C. difficile treated; development of intra-abdominal abscess in the [facility] ieu of contaminated case and intra-abdominal hematoma, incomplete drainage necessitating aggressive irrigation. Overall feels much better today. Patient spouse at bedside. Pre-Op Diagnosis: H/O LAR for complicated diverticulitis; distal ileal perf on enterosscopy Procedure Performed: 1. Mini laparotomy 2. Diagnostic laparoscopy 3. Ileostomy reversal and small bowel resection 4. Abdominal washout 5. Drain placement 6. Extensive adhesiolysis including right colonic mobilization Post Op Diagnosis: Same; terminal ileal stricturing; right pelvic side wall adhesions Objective Afebrile, hemodynamically acceptable General Appearance: positive: No acute distress Eyes Bilateral: positive: Normal inspection ENT: positive: ENT inspection nml Neck: positive: Nml inspection Respiratory: positive: Chest non-tender, No respiratory distress, Breath sounds nml. negative: Wheezes, Rales, Rhonchi Cardiovascular: positive: Regular rate & rhythm Extremities: positive: Non-tender, Full ROM, Nml appearance Neurologic/Psychiatric: positive: Oriented x3, CN's nml (2-12) Abdomen much softer, far less distended, appropriately tender, no rebound no guarding. Irrigated and suctioned the lower drain which ultimately was removed. Upper drain with minimal output after attempted suction and drain. Impression/Plan Postoperative day #19 currently with resolved leukocytosis, resolved C diff colitis with no significant inflammatory changes noted on imaging, with immediate post operative elevated troponin, tachycardia, lactic acidosis, as well as syncopal episode on postoperative day #0. EKG was was without any significant changes. No chest pain and no dyspnea. His echocardiography was without any significant wall motion abnormality. Please see above for clinical summary. Residual abscess cavity addressed with self suction and aggressive irrigation. See below for computed tomography scan findings however overall significantly improved. Plan going forward is as follows: (1) GI - GI ppx. Opiate sparring analgesia. Continue diet. (2) SURGERY - Continue daily dressing changes to the patient's historic ileostomy site. Discontinued one of the 2 drains. We will continue the second of the 2 drains and repeat with a noncontrast CAT scan before the patient's discharge. I will alone be the one irrigating and aspirating the drain. Patient will continue with IV antibiotics pending transition from culture data. (3) Renal/Lytes - Renal indices within normal limits. (4) Respiratory - O2 as necessary. Continue IS. (5) Heme - Serial H&H's. Previously transfused 2unit pRBC. Transfused venofer over 5 days completed. H&H stable thus far. (6) Cardiovascular - HD acceptable. Demand ischemia. Echo with no wall motion abnormality. (7) Neuro - Opiate sparring analgesia. (8) Immune/Infectious Disease - Completed vancomycin for C. difficile colitis. Resolved leukocytosis. See CAT scan report however overall fluid collection significantly improved. Defer PICC line at this time. Patient with pansensitive E. coli and Enterococcus avium from the abdomen. Bacteroides within the blood culture still pending for final report. We will continue meropenem at this time however likely be able to transition to oral antibiotic. Cultures positive: 1. [place] coli pansensitive, abdominal/peritoneal culture 2. Enterococcus avium pansensitive, abdominal/peritoneal culture 3. Bacteroides faecis sensitive to Carbapenem, full report pending; blood culture (9) PT/OT (10) likely discharge within the next [address] abdomen pelvis impression December 03, 2020: The large right-sided predominant abscesses sequentially diminished in size with now only a small amount of residual fluid remaining within the right subhepatic space and right paracolic gutter extending into the right lower quadrant no new fluid collection is seen with 2 surgical drains position for continued drainage from above and below on the right.
[2020-12-04] MEDS: methocarbamoL 500 MG TABLET PO SCH ×4 (00:05→17:50)
[2020-12-04] MEDS: traMADol 50 MG TABLET PO PRN ×2 (00:11→11:58)
[2020-12-04] MEDS: SODIUM CHLORIDE FLUSH 0.9% 10 ML SYRINGE IVP SCH ×3 (00:55→16:43)
[2020-12-04 05:13] LABS: BASOPHILS # (AUTO) 0.1 10^3/uL (0.0-0.1); BASOPHILS % (AUTO) 1.1 %; EOSINOPHILS # (AUTO) 0.2 10^3/uL (0.0-0.7); EOSINOPHILS % (AUTO) 2.1 %; HCT - HEMATOCRIT 32.9 % (42.0-52.0); HGB - HEMOGLOBIN 9.9 g/dL (14.0-18.0); LYMPHOCYTES # (AUTO) 2.9 10^3/uL (1.5-3.5); LYMPHOCYTES % (AUTO) 30.4 %; MEAN CORPUSCULAR HEMOGLOBIN 27.8 pg (27.0-31.0); MEAN CORPUSCULAR HGB CONC 30.1 g/dL (32.0-36.0); MEAN CORPUSCULAR VOLUME 92.4 fL (80.0-94.0); MEAN PLATELET VOLUME 9.4 fL (7.4-11.4); MONOCYTES # (AUTO) 0.6 10^3/uL (0.0-1.0); MONOCYTES % (AUTO) 6.6 %; NEUTROPHILS # (AUTO) 5.3 10^3/uL (1.5-6.6); NEUTROPHILS % (AUTO) 54.8 %; PLT - PLATELET COUNT 670 10^3/uL (130-450); RED BLOOD COUNT 3.56 10^6/uL (4.70-6.10); RED CELL DISTRIBUTION WIDTH 14.4 % (12.0-15.0); WHITE BLOOD COUNT 9.7 x10^3/uL (4.8-10.8)
[2020-12-04 05:18] LABS: CALCIUM 9.1 mg/dL (8.5-10.3); CREATININE 0.8 mg/dL (0.6-1.2); POTASSIUM 4.1 mmol/L (3.5-5.0)
[2020-12-04] MEDS: MEROPENEM 1 GM in SODIUM CHLORIDE 0.9% MINIBAG 100 ML IV SCH ×3 (05:25→21:52)
[2020-12-04] MEDS: ACETAMINOPHEN 500 MG TABLET PO PRN ×3 (05:25→17:51)
[2020-12-04] MEDS: oxyCODONE 5 MG TABLET PO PRN ×3 (05:25→17:51)
[2020-12-04] MEDS: SODIUM CHLORIDE 0.9% 1,000 ML IV SCH ×3 (07:43→19:46)
[2020-12-04] MEDS: SIMETHICONE CHEW 80 MG TABLET PO SCH ×4 (08:41→21:52)
[2020-12-04] MEDS: HEPARIN 5,000 UNIT/ML VIAL SUBQ SCH ×2 (08:42→21:52)
[2020-12-04] MEDS: MULTIVITAMIN W/MINERALS TABLET PO SCH (08:42)
[2020-12-04] MEDS: PREGABALIN 100 MG CAPSULE PO SCH ×2 (08:42→21:52)
[2020-12-04] MEDS: amLODIPine 5 MG TABLET PO SCH (08:42)
[2020-12-04] MEDS: CHOLECALCIFEROL 25 MCG TABLET PO SCH (08:42)
--- NOTE | 2020-12-04 09:24 | PROVIDER PROGRESS NOTE ---
Assessment/Plan - Problem List (1) Intra-abdominal abscess Assessment/Plan: Patient continues to significantly improve daily. His intra-abdominal abscess required tube drains placed. The last CT scan showed improvement and 1 drain was removed by Dr Pal yesterday evening. Peritoneal fluid from drainage grew E. coli Zosyn was discontinued 11/29/20 and patient was started on meropenem. Blood cultures pending from 11/20/20 (had GPC, which was sent to reference lab). Blood cx are neg from 11/22/20 however. Anticipated discharge in 1 to 2 days. Discharge with oral antibiotics for about 2 weeks is the tentative plan. (2) Status post reversal of ileostomy Assessment/Plan: This was complicated by postop abdominal abscess. He is now postop day 21. Management as per general surgery. (3) Postoperative anemia Assessment/Plan: His iron studies are suggestive of acute phase reaction. His hemoglobin has been stable around 9, with no evidence of bleeding. (4) Hypertension Assessment/Plan: His blood pressure is well controlled on amlodipine. (5) C. difficile diarrhea Assessment/Plan: Resolved. His last day of oral vancomycin was 11/28/20. (6) Sepsis Assessment/Plan: Resolved. It was secondary to intra-abdominal abscess. Peritoneal fluid from drainage grew E. coli. Patient's white blood cell count today is 9.7. Zosyn was discontinued 11/29/20 and patient was started on meropenem. Blood cultures pending from 11/20/20 (had GPC). Blood cx are neg from 11/22/20 however. Anticipated discharge in 1 to 2 days. Likely discharge with oral antibiotics for 2 weeks. - Current Meds Current Meds: Current Medications Generic Name Dose Route Start Last Admin Trade Name Freq PRN Reason Stop Dose Admin Acetaminophen 500 mg 11/15/20 17:20 12/04/20 05:25 Acetaminophen 500 Mg Tablet PO 500 mg Q4HR PRN Administration Pain or Fever > 38C (100.4F) Amlodipine Besylate 5 mg 11/15/20 16:16 12/04/20 08:42 Amlodipine 5 Mg Tablet PO 5 mg DAILY ASHWIN Administration Cholecalciferol 50 mcg 11/29/20 13:00 12/04/20 08:42 Cholecalciferol 25 Mcg Tablet PO 50 mcg DAILY ASHWIN Administration Heparin Sodium (Porcine) 5,000 unit 11/19/20 21:00 12/04/20 08:42 Heparin 5,000 Unit/Ml Vial SUBQ Not Given BID ASHWIN Meropenem 1 gm/ Sodium 100 mls @ 200 mls/hr 11/29/20 17:00 12/04/20 06:10 Chloride IV Infused Q8HR ASHWIN Infusion Sodium Chloride 1,000 mls @ 125 mls/hr 12/01/20 08:00 12/04/20 09:16 Normal Saline 0.9% IV Not Given .Q8H ASHWIN Methocarbamol 500 mg 11/12/20 18:00 12/04/20 05:25 Methocarbamol 500 Mg Tablet PO 500 mg Q6HR ASHWIN Administration Mineral Oil 1 applic 11/16/20 16:23 11/16/20 20:52 Min Oil/Dimethicon/Coconut Oil 92 Gm Tube TOP 1 applic PRN PRN Administration Skin Care Multivitamins/Minerals 1 tab 11/29/20 10:00 12/04/20 08:42 Multivitamin W/Minerals Tablet PO 1 tab DAILYWM ASHWIN Administration Ondansetron HCl 4 mg 11/12/20 17:01 11/21/20 19:13 Ondansetron 4 Mg/2 Ml Vial IVP 4 mg Q6HR PRN Administration Nausea / Vomiting Oxycodone HCl 5 mg 11/16/20 11:35 12/04/20 05:25 Oxycodone 5 Mg Tablet PO 5 mg Q4HR PRN Administration PAIN Pregabalin 100 mg 11/12/20 21:00 12/04/20 08:42 Pregabalin 100 Mg Capsule PO 100 mg BID ASHWIN Administration Simethicone 80 mg 11/19/20 20:00 12/04/20 08:41 Simethicone Chew 80 Mg Tablet PO 80 mg 0900,1300,1800,2100 ASHWIN Administration Sodium Chloride 10 ml 11/13/20 09:00 12/04/20 08:44 Sodium Chloride Flush 0.9% 10 Ml Syringe IVP 10 ml 0100,0900,1700 ASHWIN Administration Sodium Chloride 10 ml 11/13/20 01:35 12/01/20 05:33 Sodium Chloride Flush 0.9% 10 Ml Syringe IVP 10 ml PRN PRN Administration NEEDED PER PROVIDER ORDERS Sodium Chloride 20 ml 11/13/20 04:04 12/01/20 20:51 Sodium Chloride Flush 0.9% 10 Ml Syringe IVP 20 ml PRN PRN Administration After Blood Draw Tramadol HCl 50 mg 11/19/20 19:39 12/04/20 00:11 Tramadol 50 Mg Tablet PO 50 mg Q4HR PRN Administration PAIN - Lab Result Fish Bone Diagrams: 12/04/20 04:50 12/04/20 04:50 Subjective - Subjective Patient Reports: No Complaints (Able to ambulate without pain) Objective Vital Signs: Vital Signs - 24 hr 12/03/20 12/04/20 12/04/20 16:14 00:02 07:44 Temperature 36.9 C 36.7 C 36.9 C Heart Rate [ 89 71 72 Brachial] Respiratory 20 20 19 Rate Blood Pressure 108/76 139/76 H 132/82 H [Left Brachial artery] O2 Saturation 100 98 98 Oxygen O2 Source Room air I&O (Last 24 Hrs): Intake and Output Totals x24h 12/02/20 12/03/20 12/04/20 23:59 23:59 23:59 Intake Total 3903.333 5767.083 1369.167 Output Total 3736 1650 1630 Balance 500.531 7816.083 -260.833 General: Alert, Oriented x3 HEENT: Atraumatic, EOMI Neck: Supple Neuro: Non Focal Cardiovascular: Regular rate Respiratory: No respiratory distress Abdomen: Soft, Other ([address]) - Results Results: Laboratory Results WBC 9.7 x10^3/uL (4.8-10.8) 12/04/20 04:50 RBC 3.56 10^6/uL (4.70-6.10) L 12/04/20 04:50 Hgb 9.9 g/dL (14.0-18.0) L 12/04/20 04:50 Hct 32.9 % (42.0-52.0) L 12/04/20 04:50 MCV 92.4 fL (80.0-94.0) 12/04/20 04:50 MCH 27.8 pg (27.0-31.0) 12/04/20 04:50 MCHC 30.1 g/dL (32.0-36.0) L 12/04/20 04:50 RDW 14.4 % (12.0-15.0) 12/04/20 04:50 Plt Count 670 10^3/uL (130-450) H 12/04/20 04:50 MPV 9.4 fL (7.4-11.4) 12/04/20 04:50 Neut # (Auto) 5.3 10^3/uL (1.5-6.6) 12/04/20 04:50 Lymph # (Auto) 2.9 10^3/uL (1.5-3.5) 12/04/20 04:50 Pepin # (Auto) 0.6 10^3/uL (0.0-1.0) 12/04/20 04:50 Eos # (Auto) 0.2 10^3/uL (0.0-0.7) 12/04/20 04:50 Baso # (Auto) 0.1 10^3/uL (0.0-0.1) 12/04/20 04:50 Absolute Nucleated RBC 0.00 x10^3/uL 12/04/20 04:50 Total Counted 100 12/02/20 04:45 Band Neuts % (Manual) 0 % (0-10) 12/02/20 04:45 Abnorm Lymph % (Manual) 0 % 12/02/20 04:45 Metamyelocytes % 1 % (-0) H 11/29/20 04:05 Myelocytes % 2 % (-0) H 12/02/20 04:45 Plasma Cell % (Manual) 1 % 11/25/20 05:52 Nucleated RBC % 0.0 /100WBC 12/04/20 04:50 Neutrophils # (Manual) 5.2 10^3/uL (1.5-6.6) 12/02/20 04:45 Lymphocytes # (Manual) 2.8 10^3/uL (1.5-3.5) 12/02/20 04:45 Monocytes # (Manual) 0.5 10^3/uL (0.0-1.0) 12/02/20 04:45 Eosinophils # (Manual) 0.4 10^3/uL (0-0.7) 12/02/20 04:45 Basophils # (Manual) 0.0 10^3/uL (0-0.1) 12/02/20 04:45 Nucleated RBCs 2 % 11/24/20 07:24 Differential Comment MANUAL DIFFERENTIAL 12/02/20 04:45 Manual Slide Review Indicated 11/30/20 17:48 WBC Morphology NORMAL APPEARANCE (NORMAL) 12/03/20 04:40 Platelet Estimate INCREASED (>450,000) (NORMAL) 12/03/20 04:40 Platelet Morphology NORMAL APPEARANCE (NORMAL) 12/03/20 04:40 RBC Morph Micro Appear NORMAL APPEARANCE (NORMAL) 12/03/20 04:40 PT 11.7 secs (9.9-12.6) 11/12/20 09:45 INR 1.0 (0.8-1.2) 11/12/20 09:45 Anti-Xa Level 0.3 U/mL (-0.7) 11/14/20 06:17 Bld Gas Analysis Time 0231 11/13/20 02:20 Sample Site RIGHT RADIAL 11/13/20 02:20 ABG pH 7.29 (7.35-7.45) L 11/13/20 02:20 ABG pCO2 25 mmHg (34-45) L* 11/13/20 02:20 ABG pO2 79 mmHg (80-100) L 11/13/20 02:20 ABG HCO3 11.7 mmol/L (22.0-26.0) L 11/13/20 02:20 ABG Total CO2 12.4 MMOL/L (21.0-29.0) L 11/13/20 02:20 ABG O2 Saturation 95 % (94-98) 11/13/20 02:20 ABG Base Excess -13.2 mmol/L (-2.0-3.0) L 11/13/20 02:20 Jose Test POSITIVE 11/13/20 02:20 Room Air YES 11/13/20 02:20 FiO2 0.21 11/13/20 02:20 Sodium 141 mmol/L (135-145) 12/04/20 04:50 Potassium 4.1 mmol/L (3.5-5.0) 12/04/20 04:50 Chloride 102 mmol/L (101-111) 12/04/20 04:50 Carbon Dioxide 26 mmol/L (21-32) 12/04/20 04:50 Anion Gap 13.0 (6-13) 12/04/20 04:50 BUN 11 mg/dL (6-20) 12/04/20 04:50 Creatinine 0.8 mg/dL (0.6-1.2) 12/04/20 04:50 Estimated GFR (MDRD) 101 (>89) 12/04/20 04:50 Glucose 105 mg/dL (70-100) H 12/04/20 04:50 POC Whole Bld Glucose 119 mg/dL (70 - 100) H 11/17/20 23:45 Lactic Acid 1.2 mmol/L (0.5-2.2) 11/21/20 19:04 Calcium 9.1 mg/dL (8.5-10.3) 12/04/20 04:50 Phosphorus 2.5 mg/dL (2.5-4.6) 11/19/20 06:15 Magnesium 2.1 mg/dL (1.7-2.8) 11/23/20 06:21 Iron 15 ug/dL (45-182) L 11/27/20 04:35 TIBC 193 ug/dL (250-450) L 11/27/20 04:35 % Saturation 8 % (20-50) L 11/27/20 04:35 Transferrin 138 mg/dL (180-329) L 11/27/20 04:35 Total Bilirubin 0.4 mg/dL (0.2-1.0) 11/30/20 17:48 Direct Bilirubin 0.4 mg/dL (0.1-0.5) 11/13/20 00:31 AST 24 IU/L (10-42) 11/30/20 17:48 ALT 35 IU/L (10-60) 11/30/20 17:48 Alkaline Phosphatase 220 IU/L (42-121) H 11/30/20 17:48 Troponin I High Sens 224.9 ng/L (2.3-19.7) H* 11/14/20 08:25 Total Protein 6.9 g/dL (6.7-8.2) 11/30/20 17:48 Albumin 2.4 g/dL (3.2-5.5) L 11/30/20 17:48 Globulin 4.5 g/dL (2.1-4.2) H 11/30/20 17:48 Albumin/Globulin Ratio 0.5 (1.0-2.2) L 11/30/20 17:48 Prealbumin 7 mg/dL (18-45) L 11/25/20 05:52 Triglycerides 119 mg/dL (-149) 11/25/20 05:52 Nasal Screen MRSA (PCR) NEGATIVE (NEGATIVE) 11/13/20 02:00 Stl C. diff Tox B Gene POSITIVE (NEGATIVE) A* 11/17/20 15:30 Last Dose Date 11/25/20 11/25/20 08:21 Last Dose Time 0330 11/25/20 08:21 Vancomycin Trough 15.7 ug/mL (10.0-20.0) 11/25/20 08:21 Ref Lab Test Result REPORT 11/20/20 08:26 Blood Type O POSITIVE 11/13/20 00:31 Blood Type Recheck O POSITIVE 11/13/20 01:40 Antibody Screen NEGATIVE 11/13/20 00:31 Crossmatch IS Only See Detail 11/13/20 00:31 - Procedures Procedures: Procedures BYPASS ILEUM TO CUTANEOUS, PERCUTANEOUS ENDOSCOPIC APPROACH (09/13/20) COLONOSCOPY (05/29/13) EXCISION OF RECTUM, OPEN APPROACH (09/13/20) EXCISION OF SIGMOID COLON, OPEN APPROACH (09/13/20) INSERTION OF INFUSION DEV INTO SUP VENA CAVA, PERC APPROACH (09/13/20) INSPECTION OF LOWER INTESTINAL TRACT, ENDO (09/13/20) INTRODUCTION OF NUTRITIONAL INTO CENTRAL VEIN, PERC APPROACH (09/13/20) RELEASE ILEUM, PERCUTANEOUS ENDOSCOPIC APPROACH (09/13/20) RELEASE LEFT LARGE INTESTINE, PERC ENDO APPROACH (09/13/20) Sepsis Event Note (H) - Evaluation Current Stage of Sepsis: Resolved Possible source of Sepsis: positive: GI tract/intra-abdominal - Sepsis Criteria Sepsis Criteria: Recorded Temperature greater than 38.3C or Less than 36C, Recorded Heart Rate greater than 90 bpm, WBC count greater than 12,000 or less than 4000
--- NOTE | 2020-12-04 15:35 | PROVIDER PROGRESS NOTE ---
Subjective - Prog Note Date Prog Note Date: 12/04/20 - Subjective Pt reports feeling: Improved (tolerating regular diet) Objective - Vital Signs/Intake & Output Reviewed Vital Signs: Yes Vital Signs: Vital Signs x48h Temp Pulse Resp BP Pulse Ox 12/04/20 07:44 36.9 C 72 19 132/82 H 98 Intake & Output: Intake & Output 12/01/20 12/02/20 12/03/20 12/04/20 23:59 23:59 23:59 23:59 Intake Total 2764.167 3903.333 5767.083 2300.834 Output Total 3155 3736 1650 2030 Balance -390.833 421.920 7063.083 270.834 - Objective General Appearance: positive: No acute distress, Alert ENT: positive: No signs of dehydration Respiratory: positive: No respiratory distress Abdomen: positive: Non-tender, No distention - Lab Results Fish Bones: 12/04/20 04:50 12/04/20 04:50 Other Labs: Lab Results x24hrs 12/04/20 12/04/20 Range/Units 04:50 04:50 WBC 9.7 (4.8-10.8) x10^3/uL RBC 3.56 L (4.70-6.10) 10^6/uL Hgb 9.9 L (14.0-18.0) g/dL Hct 32.9 L (42.0-52.0) % MCV 92.4 (80.0-94.0) fL MCH 27.8 (27.0-31.0) pg MCHC 30.1 L (32.0-36.0) g/dL RDW 14.4 (12.0-15.0) % Plt Count 670 H (130-450) 10^3/uL MPV 9.4 (7.4-11.4) fL Neut # (Auto) 5.3 (1.5-6.6) 10^3/uL Lymph # (Auto) 2.9 (1.5-3.5) 10^3/uL [place] # (Auto) 0.6 (0.0-1.0) 10^3/uL Eos # (Auto) 0.2 (0.0-0.7) 10^3/uL Baso # (Auto) 0.1 (0.0-0.1) 10^3/uL Absolute Nucleated RBC 0.00 x10^3/uL Nucleated RBC % 0.0 /100WBC Sodium 141 (135-145) mmol/L Potassium 4.1 (3.5-5.0) mmol/L Chloride 102 (101-111) mmol/L Carbon Dioxide 26 (21-32) mmol/L Anion Gap 13.0 (6-13) BUN 11 (6-20) mg/dL Creatinine 0.8 (0.6-1.2) mg/dL Estimated GFR (MDRD) 101 (>89) Glucose 105 H (70-100) mg/dL Calcium 9.1 (8.5-10.3) mg/dL Sepsis Event Note (H) - Evaluation Current Stage of Sepsis: Resolved Possible source of Sepsis: positive: GI tract/intra-abdominal - Sepsis Criteria Sepsis Criteria: Recorded Temperature greater than 38.3C or Less than 36C, Recorded Heart Rate greater than 90 bpm, WBC count greater than 12,000 or less than 4000 Assessment/Plan - Problem List (1) Status post reversal of ileostomy Impression: doing well. anticipate home soon
[2020-12-05] MEDS: SODIUM CHLORIDE FLUSH 0.9% 10 ML SYRINGE IVP SCH ×2 (00:44→08:59)
[2020-12-05] MEDS: methocarbamoL 500 MG TABLET PO SCH ×3 (00:45→12:09)
[2020-12-05] MEDS: traMADol 50 MG TABLET PO PRN ×3 (00:54→17:06)
[2020-12-05 05:01] LABS: BASOPHILS # (AUTO) 0.1 10^3/uL (0.0-0.1); BASOPHILS % (AUTO) 1.2 %; EOSINOPHILS # (AUTO) 0.2 10^3/uL (0.0-0.7); EOSINOPHILS % (AUTO) 2.1 %; HCT - HEMATOCRIT 29.8 % (42.0-52.0); LYMPHOCYTES # (AUTO) 2.2 10^3/uL (1.5-3.5); LYMPHOCYTES % (AUTO) 29.2 %; MEAN CORPUSCULAR HEMOGLOBIN 27.8 pg (27.0-31.0); MEAN CORPUSCULAR HGB CONC 30.2 g/dL (32.0-36.0); MEAN PLATELET VOLUME 9.5 fL (7.4-11.4); MONOCYTES # (AUTO) 0.6 10^3/uL (0.0-1.0); MONOCYTES % (AUTO) 7.8 %; NEUTROPHILS # (AUTO) 4.1 10^3/uL (1.5-6.6); NEUTROPHILS % (AUTO) 54.7 %; PLT - PLATELET COUNT 523 10^3/uL (130-450); RED BLOOD COUNT 3.24 10^6/uL (4.70-6.10); RED CELL DISTRIBUTION WIDTH 14.6 % (12.0-15.0); WHITE BLOOD COUNT 7.5 x10^3/uL (4.8-10.8)
[2020-12-05 05:10] LABS: CALCIUM 8.9 mg/dL (8.5-10.3); CREATININE 0.9 mg/dL (0.6-1.2); POTASSIUM 4.1 mmol/L (3.5-5.0)
[2020-12-05] MEDS: MEROPENEM 1 GM in SODIUM CHLORIDE 0.9% MINIBAG 100 ML IV SCH ×2 (05:22→13:36)
[2020-12-05] MEDS: oxyCODONE 5 MG TABLET PO PRN ×3 (05:34→16:02)
[2020-12-05] MEDS: ACETAMINOPHEN 500 MG TABLET PO PRN ×3 (05:34→16:02)
[2020-12-05] MEDS: MULTIVITAMIN W/MINERALS TABLET PO SCH (07:50)
[2020-12-05] MEDS: amLODIPine 5 MG TABLET PO SCH (08:58)
[2020-12-05] MEDS: CHOLECALCIFEROL 25 MCG TABLET PO SCH (08:58)
[2020-12-05] MEDS: SIMETHICONE CHEW 80 MG TABLET PO SCH ×2 (08:59→12:10)
[2020-12-05] MEDS: PREGABALIN 100 MG CAPSULE PO SCH (08:59)
[2020-12-05] MEDS: HEPARIN 5,000 UNIT/ML VIAL SUBQ SCH (08:59)
--- NOTE | 2020-12-05 11:01 | Discharge Plan ---
Discharge Plan Problem Reviewed?: Yes Disposition: Home, Self Care Condition: Good Prescriptions: oxyCODONE [Roxicodone] 5 mg PO Q4HR PRN #30 tablet PRN Reason: Pain Amox/Clav 875/125 [Augmentin 875/125 Tab] 1 tablet PO Q12H 10 Days #20 tablet Pregabalin [Lyrica] 100 mg PO BID #60 tablet methocarbamoL [Robaxin] 500 mg PO Q8H PRN #50 tablet PRN Reason: Spasms Diet: Soft Activity Restrictions: No heavy lift/push/pull Shower Restrictions: No Driving Restrictions: Yes (No driving while taking narcotics) Weight Bearing: Full Weight Instruction Topics: Methocarbamol tablets, Pregabalin capsules, Oxycodone tablets or capsules, Clostridium Difficile Infec, Anemia Additional Instructions or Follow Up instructions: Specific discharge instructions: 1. Continue with daily packing change to the right lower quadrant historic ileostomy site once daily with iodoform, dry sterile gauze top dressing and Tegaderm 2. Record percutaneous drain output twice daily 3. Follow-up in clinic on December 09 4. Follow-up with primary care within 1 week of discharge 5. Continue taking oral antibiotics twice daily as instructed General DISCHARGE INSTRUCTIONS TEMPLATE: No heavy lifting, pushing, or pulling. Stairs are allowed, no strenuous/ex ertional activities. 5-10lbs weight carrying limit (i.e. gallon of milk) If provided, abdominal binder while out of bed and while ambulating. Call or proceed to clinic/ER for fevers, severe pain, nausea, vomiting, inability to pass flatus/stool, bleeding, wound redness/discharge, weakness, excessively loose stool/diarrhea, or for any other reasonably worrisome symptom or concern. Soft diet, no raw vegetables, avoid high fiber foods. Colace 100mg by mouth twice to three times daily while taking narcotic pain medication. If no bowel movement in 24-48hr, may take 17g Miralax in 8oz water twice daily until bowel movement. May shower, no submersive bathing. Follow up in clinic in 2-4 weeks for wound check and staple removal. No driving while taking narcotic pain medications. Follow up with primary care provider and/or medical subspecialist following discharge as well. Patient not allowed to drive self today or within 24 hours of surgery. No Smoking: If you smoke, Please STOP! Call for help. Follow-up with: VIET BATISTA PA-C [Primary Care Provider] - Jovan Pal MD [Provider Admit Priv/Credential] -
--- NOTE | 2020-12-05 11:02 | DISCHARGE SUMMARY ---
"Discharge Summary Admit Date: 11/12/20 Discharge Date: 12/05/20 Discharging Provider: Kae Code Status: Attempt Resuscitation Condition at Discharge: Good Discharge Disposition: 01 Home, Self Care - DIAGNOSES Admission Diagnoses: 1. History of diverticulitis 2. History of low anterior resection 3. History of loop ileostomy 4. History of dehydration 5. Efferent loop stenosis 6. Mucosal avulsion, possible perforation Discharge Diagnoses with Status of Each Condition: 1. History of diverticulitis - Unchanged 2. History of low anterior resection - Unchanged 3. History of loop ileostomy - Resected/Reversed 4. History of dehydration - Resusitated/Treated 5. C. difficile colitis - Treated/Resolved 6. Sepsis - Treated/Resolved 7. Efferent loop stenosis - Treated/Resolved 8. Mucosal avulsion, possible perforation - Treated/Resolved 9. Non-STEMI versus demand ischemia - Treated/Resolved 10. Acute on chronic blood loss anemia - Treated/Resolved 11. Abdominal Abscess - Ongoing treatment 12. Abdominal wound - Ongoing treatment - HPI History of Present Illness: 55-year-old male status post recent complex abdominal intervention performed laparoscopically for complicated perforated diverticulitis with pelvic abscess, recurrent, failing maximal medical therapy. Procedure Performed: 1. Diagnostic laparoscopy 2. Laparoscopic adhesiolysis, dense and lengthy 3. Laparoscopic anterior resection (7cm anastomosis) 4. Laparoscopic splenic flexure mobilization 5. Rigid proctoscopy 6. Laparoscopic loop ileostomy 7. Tap block per anesthesia 8. Drainage of pelvic abscess 9. Abdominal washout 10. Sampling of pelvic abscess 11. 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 Drain placement 14. Primary umbilical hernia repair Pathology was consistent with acute diverticulitis, rupture, and mesenteric abscess. Negative for active colitis, malignancy or dysplasia. There were no malignant cells within the pelvic washings. Patient was placed for a proximal diverting loop ileostomy to defunctionalized the anastomosis in the setting of a significantly inflamed and hostile pelvis for which risk of anastomotic leak was prohibitive. He is eager for ileostomy reversal. Prior to discharge he had a CAT scan which showed no evidence of recurrent abscess; findings were only significant for a distal small bowel obstruction with transition at the ileostomy, however this resolved in the interim. There were no focal fluid collections and trace foci of free intraperitoneal air as expected postsurgically. He has been without leukocytosis, no fevers or other concerning features. Please note the patient was performed for colonoscopy today in anticipate of ileostomy takedown. Please see above and below: 1. Need for ileostomy reversal given history of low anterior resection for complicated perforated diverticulitis that was performed for primary anastomosis, defunctionalized 2. Inability to assess the terminal ileum on transanal colonoscopy secondary to extensive ascending and cecal diversion colitis and tethering 3. Efferent limb of stoma suspected perforation of defunctionalized terminal ileum while evaluating with upper endoscope during which patient had become agitated during challenge with sedation. 4. Abdominal pain post procedure inspiring urgent laparotomy and intervention 5. Please note that the patient was also noted for extensive terminal ileal adhesions to the pelvic phlegmon in the setting of perforated diverticulitis which was also concerning for inflammatory changes that would preclude the patient from safe ileostomy takedown without thorough evaluation There was also some concern for ileal stricturing as well. Thus we opted to perform this urgently today given worry for development of peritonitis although diverted. Thus the patient was taken to the operating placed supine on the operating table. Patient was induced for general endotracheal anesthesia. - CONSULTS | PROCEDURES Consultations: Hospitalist Service Procedures: 1. Ileostomy takedown 2. Small bowel resection 3. [id number] functional end-to-end antiperistaltic anastomosis stapled with primary enterotomy closure to layers 4. Parastomal hernia repair 5. Drain placement 6. Tap block 7. Diagnostic laparoscopy 8. Mobilization of right colon - HOSPITAL COURSE Hospital Course: Physician: Jovan Pal MD DATE OF ADMISSION: 11/12/2020 DATE OF DISCHARGE: 12/05/2020 ADDENDUM HOSPITAL COURSE: This patient is notable for a history of complicated perforated diverticulitis with large phlegmon and abscess, for which he was not a candidate for drainage during a prior admission. He failed medical management and underwent a hand-assisted laparoscopic low-anterior resection with proximal diverting loop ileostomy as mentioned elsewhere. His postoperative course initi ally was complicated by small-bowel obstruction. However, this resolved, and he was ultimately discharged with weekly IV fluid resuscitation orders to prevent dehydration. Patient had already undergone CT scan late in his index hospitalization without any concerns for residual abscess. He had ultimately been evaluated in the office for ileostomy takedown with plan for colonoscopy and ultimate CT rectal contrast to evaluate. He was scheduled for his procedure and underwent his colonoscopy on the day of ileostomy takedown. The anastomosis was widely intact. The ileocecal valve was attempted to be intubated but, unfortunately, could not be secondary to the history of small-bowel obstruction at the level of the ileostomy, tethering and severe diversion colitis; there was a need to evaluate given concern for terminal ileal involvement at the level of the phlegmon and associated strict uring of the small intestine that was at that time simply chelsey out as a loop ileostomy. Proximally, it was widely patent. The efferent loop, however, was difficult to navigate. We ultimately proceeded with esophagogastroduodenoscope. However, the patient was not adequately sedated, and during maneuvering across a tight area of stenosis it appeared the patient had essentially suffered mucosal laceration with potential for perforation Given timing, its location, and the findings on the colonoscopy, we opted to perform the patient's stoma takedown on that day towards avoiding any complications as it relates to intraabdominal abscess that would preclude him from proceeding with operative intervention going forward. He underwent his operative intervention without any complication. On postoperative day number 0, the patient had a syncopal episode, likely secondary to demand ischemia, given his relative dehydration, and was noted for troponin elevation. Over initial concerns for acute coronary syndrome, he was started on heparin drip as well as aspirin therapy. Patient was transferred to the ICU for continued monitoring. He had, at no point, neither chest pain nor shortness of breath. The patient underwent a CT angiogram without concern for pulmonary embolism, and there was neither concern for leak. He ultimately was noted for acute blood-loss anemia secondary to the systemic anticoagulation in the immediate postoperative period and ultimately developed symptomatic anemia, for which blood transfusion was necessary. Ultimately, the patient had persistent leukocytosis, and concern over loose stooling merited evaluation for C. difficile, which was positive and ultimately treated with vancomycin. Antibiotics that had been continued for concern over endoscopic laceration and possible perforation on admission, but were discontinued at this time. In spite of treatment, the patient continued to have elevated white blood cell count. Repeat CAT scan showed a large fluid collection within the abdomen. The patient was sent to [facility] for percutaneous drainage, which was achieved with 2 catheters. His white count did indeed improve, however leuk ocytosis failed to resolve as expected. This was likely secondary to the inadequacy of the drain caliber, which necessitated aggressive irrigation and aspiration after repeat CT revealed persistent collection in spite of wide local drainage. Ultimately, we were able to achieve significant overall improvement in the size of these fluid collections, and patient had significant overall improvement clinically from what was essentially sepsis and managed with antibiotics specific to organisms from drain cultures. Repeat CAT scan showed resolution of fluid collection, and the lower drain was removed. At this point, we continued with local wound care to the patient's historic ileostomy. He had positive resumption of bowel function, which had equilibrated, and had minimal effluent from one of the 2 drains. Diarrhea, again, resolved. As mentioned, he was also followed for drain cultures, given concerns whether his initial cultures were inadequate or sterilized from historic antibiotics; these were positive for E. coli, Enterococcus avium and B. feacalis. Transitioned from Merropenum to po Augmentin once all cultures confirmed sensitivities. On the date of discharge, the patient had positive bowel function, appropriate for drain care and continued wound care. He was afebrile, hemodynamically acceptable normal for his white count, and his H and H had remain stabilize. The patient was appropriate for discharge home with planned outpatient followup, instructions given, and patient transitioned to oral antibiotics with Augmentin. TD: 12/09/2020 07:18 - ALLERGIES Allergies/Adverse Reactions: Allergies Allergy/AdvReac Type Severity Reaction Status Date / Time No Known Drug Allergies Allergy Verified 09/13/20 20:48 - MEDICATIONS Home Medications: Ambulatory Orders Medication Instructions Recorded Confirmed Pantoprazole [Protonix] 40 mg PO QDAC #30 tab 10/06/20 11/12/20 amLODIPine [Norvasc] 5 mg PO DAILY #30 tab 10/06/20 11/12/20 Acetaminophen [Tylenol] 500 mg PO DAILY 11/12/20 11/12/20 Acetaminophen [Tylenol] 500 mg PO Q4HR PRN tablet 12/05/20 Amox/Clav 875/125 [Augmentin 1 tablet PO Q12H 10 Days #20 tablet 12/05/20 875/125 Tab] Cholecalciferol [Vitamin D3] 50 mcg PO DAILY tablet 12/05/20 Pregabalin [Lyrica] 100 mg PO BID #60 tablet 12/05/20 methocarbamoL [Robaxin] 500 mg PO Q8H PRN #50 tablet 12/05/20 oxyCODONE [Roxicodone] 5 mg PO Q4HR PRN #30 tablet 12/05/20 traMADol [Ultram] 50 mg PO Q4HR PRN tablet 12/05/20 - PHYSICAL EXAM AT DISCHARGE General Appearance: positive: No acute distress, Alert Eyes Bilateral: positive: Normal inspection, PERRL, EOMI ENT: positive: ENT inspection nml Neck: positive: Nml inspection Respiratory: positive: Chest non-tender, No respiratory distress, Breath sounds nml. negative: Wheezes, Rales, Rhonchi Cardiovascular: positive: Regular rate & rhythm Abdomen: positive: Non-tender, No distention, Other (Single drain in place with minimal output. Ileostomy wound packed.). negative: Tenderness, Guarding, Rebound Skin: positive: Color nml, No rash Extremities: positive: Non-tender, Full ROM, Nml appearance Neurologic/Psychiatric: positive: Oriented x3, CN's nml (2-12), Motor nml, Sensation nml - LABS Result Diagrams: 12/05/20 04:20 12/05/20 04:20 - DIAGNOSTIC IMAGING Diagnostic Imaging Results: Final report reviewed - SEPSIS Current Stage of Sepsis: Resolved Possible source of Sepsis: GI tract/intra-abdominal Sepsis Criteria: Recorded Temperature greater than 38.3C or Less than 36C, Recorded Heart Rate greater than 90 bpm, WBC count greater than 12,000 or less than 4000 - FOLLOW UP Follow Up: Specific discharge instructions: 1. Continue with daily packing change to the right lower quadrant historic ileostomy site once daily with iodoform, dry sterile gauze top dressing and Tegaderm 2. Record percutaneous drain output twice daily 3. Follow-up in clinic on December 09 4. Follow-up with primary care within 1 week of discharge 5. Continue taking oral antibiotics twice daily as instructed General DISCHARGE INSTRUCTIONS TEMPLATE: No heavy lifting, pushing, or pulling. Stairs are allowed, no strenuous/exertional activities. 5-10lbs weight carrying limit (i.e. gallon of milk) If provided, abdominal binder while out of bed and while ambulating. Call or proceed to clinic/ER for fevers, severe pain, nausea, vomiting, inability to pass flatus/stool, bleeding, wound redness/discharge, weakness, excessively loose stool/diarrhea, or for any other reasonably worrisome symptom or concern. Soft diet, no raw vegetables, avoid high fiber foods. Colace 100mg by mouth twice to three times daily while taking narcotic pain medication. If no bowel movement in 24-48hr, may take 17g Miralax in 8oz water twice daily until bowel movement. May shower, no submersive bathing. Follow up in clinic in 2-4 weeks for wound check and staple removal. No driving while taking narcotic pain medications. Follow up with primary care provider and/or medical subspecialist following dis charge as well. Patient not allowed to drive self today or within 24 hours of surgery. - TIME SPENT Time Spent in Discharge (Minutes): 60"
--- NOTE | 2020-12-05 11:50 | CT Report ---
PROCEDURE: Abdomen/Pelvis WO INDICATIONS: follow up fluid collection; non contrast TECHNIQUE: Noncontrast 5 mm thick sections acquired from the diaphragms to the symphysis. 5 mm coronal and sagi ttal reformats were then performed. For radiation dose reduction, the following was used: automated exposure control, adjustment of mA and/or kV according to patient size. COMPARISON: Prior recent CT scanning of the abdomen/pelvis in this patient with abscess drainage. , 11/28/2020, 11/20/2020 chest, 11/20/2020 abdomen/pelvis. FINDINGS: Image quality: Somewhat diminished by absence of both oral and intravenous contrast.. ABDOMEN: Lung bases: Lung bases are clear. Heart size is normal. Solid organs: Liver and spleen are normal in size. Gallbladder appears contracted Pancreas is norm al in contours. No adrenal nodules. Kidneys are normal in size, without hydronephrosis or nephrolit hiasis. Peritoneum and bowel: Unenhanced bowel loops demonstrate normal wall thickness and caliber. No free fluid or air. The lower abscess drain has been removed. The upper abscess drain remains in place in the abscess cavity was tracts from the subhepatic space inferiorly into the pelvis continues to dimi karolina in size and now is diminutive in thickness, with only a small amount of residual fluid remaining including at the pelvic portion of the abscess cavity.. Nodes and vessels: No retroperitoneal or mesenteric adenopathy by size criteria. Aorta and inferior vena cava are normal in caliber. Miscellaneous: No ventral hernias. PELVIS: Genitourinary: Bladder wall thickness is normal. Miscellaneous: No inguinal hernias or adenopathy. No new abscess has developed. Almost complete res olution of the prior abscess along the right paracolic gutter and extending into the pelvis. Bones: No suspicious bony lesions. No vertebral body compression fractures. IMPRESSION: Removal of a pelvic percutaneous drain, single remaining lateral right abdominal percutaneous drain. Minimal residual fluid within the resolving abscess cavity that extends from the subhepatic space int o the right iliac fossa. No new fluid collection has developed. Reviewed by: Dev Mcmanus MD on 12/05/2020 11:49 AM PDT Approved by: Dev Mcmanus MD on 12/05/2020 11:49 AM PDT Station ID: [id number]
[2020-12-05 15:57] VITALS: BP 129/79
--- NOTE | 2020-12-09 07:31 | DISCHARGE SUMMARY ---
Please delete as incorporated into [employer] note. MTDD
== END 2020-12-05 17:27 | disposition home or self-care (01) | DRG 329 ==
LOC: SDS 07:22 → MS2 09:24 → ICU 11-13 01:57 → MS2 11-15 17:03 → MS3 11-28 18:41
PROVIDERS: ADMIT Surgery; ATTEND Surgery
PROC: 0DNB0ZZ Release Ileum, Open Approach (ICD-10-PCS; 2020-11-12)
PROC: 0DNF0ZZ Release Right Large Intestine, Open Approach (ICD-10-PCS; 2020-11-12)
PROC: 0DBG8ZZ Excision of Left Large Intestine, Via Natural or Artificial Opening Endoscopic (ICD-10-PCS; 2020-11-12)
PROC: 0DJD8ZZ Inspection of Lower Intestinal Tract, Via Natural or Artificial Opening Endoscopic (ICD-10-PCS; 2020-11-12)
PROC: 0DBB0ZZ Excision of Ileum, Open Approach (ICD-10-PCS; principal; 2020-11-12 08:30)
PROC: 30243N1 Transfusion of Nonautologous Red Blood Cells into Central Vein, Percutaneous Approach (ICD-10-PCS; 2020-11-14)
PROC: 0W9G30Z Drainage of Peritoneal Cavity with Drainage Device, Percutaneous Approach (ICD-10-PCS; 2020-11-21)
DX: K63.1 Perforation of intestine (nontraumatic) (principal); A41.51 Sepsis due to Escherichia coli [E. coli]; A41.89 Other specified sepsis; K65.1 Peritoneal abscess; I24.8 Other forms of acute ischemic heart disease; T81.44XA Sepsis following a procedure, initial encounter; T81.43XA Infection following a procedure, organ and space surgical site, initial encounter; N17.9 Acute kidney failure, unspecified; E87.2 Acidosis; D62 Acute posthemorrhagic anemia; A04.72 Enterocolitis due to Clostridium difficile, not specified as recurrent; K56.699 Other intestinal obstruction unspecified as to partial versus complete obstruction; K57.32 Diverticulitis of large intestine without perforation or abscess without bleeding; Y83.8 Other surgical procedures as the cause of abnormal reaction of the patient, or of later complication, without mention of misadventure at the time of the procedure; Y92.234 Operating room of hospital as the place of occurrence of the external cause; K52.9 Noninfective gastroenteritis and colitis, unspecified; Z09 Encounter for follow-up examination after completed treatment for conditions other than malignant neoplasm; Z93.2 Ileostomy status; K66.0 Peritoneal adhesions (postprocedural) (postinfection); E87.6 Hypokalemia; D47.3 Essential (hemorrhagic) thrombocythemia; E86.0 Dehydration; K63.5 Polyp of colon; I10 Essential (primary) hypertension; K43.5 Parastomal hernia without obstruction or gangrene; F17.210 Nicotine dependence, cigarettes, uncomplicated; E66.9 Obesity, unspecified; Z68.30 Body mass index [BMI] 30.0-30.9, adult; Z79.899 Other long term (current) drug therapy; Z90.49 Acquired absence of other specified parts of digestive tract
CPT/HCPCS: 36415; 36600; 44382; 45385; 71045; 71275; 74176; 74177; 80048; 80053; 80076; 80202; 82803; 83540; 83605; 83735; 84100; 84134; 84466; 84478; 84484; 85014; 85018; 85025; 85027; 85520; 85610; 86850; 86900; 86901; 86920; 87040; 87070; 87076; 87077; 87150; 87181; 87205; 87493; 88304; 93005; 93306; A6250; A9270; J0131; J1170; J1750; J1815; J2185; J2765; J3010; J3370; J3490; J7120; J8499; P9040; Q9967; 49406; 81599

== ENCOUNTER 2020-12-12 14:45 | Outpatient (CLI) | payer OTHER ==
--- NOTE | 2020-12-12 15:15 | CT Report ---
PROCEDURE: Abdomen/Pelvis WO INDICATIONS: ABDOMINAL ABSCESS TECHNIQUE: Noncontrast 5 mm thick sections acquired from the diaphragms to the symphysis. 5 mm coronal and sagi ttal reformats were then performed. For radiation dose reduction, the following was used: automated exposure control, adjustment of mA and/or kV according to patient size. COMPARISON: CT abdomen and pelvis 12/05/2020, 11/20/2020, 09/30/2020. FINDINGS: Image quality: Excellent. ABDOMEN: Lung bases: Minimal atelectasis. No pleural effusion. Heart size is normal. Solid organs: Liver and spleen are normal in size. Gallbladder is decompressed. Pancreas is normal in contours. No adrenal nodules. Kidneys are normal in size, without hydronephrosis or nephrolithi asis. Peritoneum and bowel: Right pericolic gutter small fluid collection measuring approximately 6.3 x 5. 7 x 1.8 cm, estimated volume of 34 cc. (Previously 7.5 x 7 x 1.4 cm, volume of 38 cc). There is a per cutaneous pigtail drainage catheter centered within this collection. Percutaneous strain enters at th e 10-11 right rib space. Punctate focus of free air in the inferior lateral right lower quadrant has resolved. Small bowel isa stomosis in the right lower quadrant. No small bowel obstruction. The appendix is mildly dilated karen uring 1 cm, (3/47), previously 0.8 cm. Rectal anastomosis. A few colonic diverticuli. Stomach is not significantly distended. No pneumoperitoneum. Nodes and vessels: No retroperitoneal or mesenteric adenopathy by size criteria. Aorta and inferior vena cava are normal in caliber. Moderate calcified atherosclerotic plaque. Miscellaneous: No ventral hernias. Right lower quadrant skin wound appears to be improving. Mild sub cutaneous edema at the right flank. PELVIS: Genitourinary: Bladder is unremarkable. Presacral edema. Miscellaneous: No inguinal hernias or adenopathy. Bones: No suspicious bony lesions. No vertebral body compression fractures. IMPRESSION: 1. Right pericolic fluid collection is stable to slightly decreased in size. Stable right percutaneou s drainage catheter. 2. No bowel obstruction. Reviewed by: Barry Escalona MD on 12/12/2020 3:14 PM PDT Approved by: Barry Escalona MD on 12/12/2020 3:14 PM PDT Station ID: [id number]
== END 2020-12-12 14:46 | disposition home or self-care (01) ==
LOC: DI 14:45
PROVIDERS: ATTEND Surgery
DX: K65.1 Peritoneal abscess (principal)

== ENCOUNTER 2021-10-16 08:00 | Outpatient (CLI) | payer OTHER ==
--- NOTE | 2021-10-16 16:02 | XRAY Report ---
PROCEDURE: Hand 3 View LT INDICATIONS: LEFT HAND PAIN TECHNIQUE: 3 views of the hand(s) acquired. COMPARISON: None. FINDINGS: Bones: Suspect a chip fracture at the base of the first proximal phalanx, uncertain chronicity. No d islocations. No suspicious bony lesions. Soft tissues: No suspicious soft tissue calcifications. IMPRESSION: Suspect a chip fracture at the base of the first proximal phalanx of uncertain chronicity. Reviewed by: Brenden Lin MD on 10/16/2021 4:01 PM PST Approved by: Brenden Lin MD on 10/16/2021 4:01 PM [facility] Station ID: [id number]
== END 2021-10-16 23:59 | disposition home or self-care (01) ==
LOC: DI.S 08:00
PROVIDERS: ATTEND Physician Assistant Medical
DX: S63.602A Unspecified sprain of left thumb, initial encounter (principal); S60.222A Contusion of left hand, initial encounter; R93.6 Abnormal findings on diagnostic imaging of limbs

== ENCOUNTER 2022-03-04 07:52 | Outpatient (CLI) | payer OTHER ==
--- NOTE | 2022-03-04 09:29 | Ultrasound Report ---
PROCEDURE: Testicle INDICATIONS: VERTIGO, NICOTINE DEPENDENCE,TESTICULAR DISORDER TECHNIQUE: Real-time scanning was performed of the scrotum and testicles, with image documentation. Color and p ulse Doppler interrogation was performed of both testicles. COMPARISON: None. FINDINGS: Right: Testicle is normal in size at 5.3 x 2.3 x 3.6 cm, and homogenous in echotexture. Epididymis is normal in overall size and morphology. No hydrocele or varicoceles. Overlying scrotal skin is no rmal in thickness. Left: Testicle is normal in size at 5.4 x 2.9 x 3.6 cm, and homogeneous in echotexture. Epididymis is normal in overall size and morphology. There is a small hydrocele. A left varicocele is also seen measuring 2.7 mm in diameter with reflux measuring 392 ms. A circular thin-walled structure is seen s uperior to the left epididymal head measures 1.3 x 0.8 x 1.2 cm in which there is visualization of th e internal debris, this finding is likely a spermatocele. Overlying scrotal skin is normal in thickn ess. Doppler: Color and pulse Doppler demonstrate normal and symmetric arterial flow in both testicles. IMPRESSION: 1. Left varicocele and hydrocele. 2. Oval thin-walled cystic structure with internal debris, likely a spermatocele adjacent to the left epididymal head, recommend follow-up imaging in 6 months to ensure no interval growth. Reviewed by: Trenton Jay on 03/04/2022 9:28 AM PDT Approved by: Trenton Jay on 03/04/2022 9:28 AM PDT Station ID: [id number]
--- NOTE | 2022-03-04 09:31 | CT Report ---
PROCEDURE: HEAD WO INDICATIONS: VERTIGO, NICOTINE DEPENDENCE,TESTICULAR DISORDER TECHNIQUE: Noncontrast 4.5 mm thick angled axial sections acquired from the foramen magnum to the vertex. For r adiation dose reduction, the following was used: automated exposure control, adjustment of mA and/or kV according to patient size. COMPARISON: None. FINDINGS: Image quality: Excellent. CSF spaces: Basal cisterns are patent. No extra-axial fluid collections. Ventricles are normal in size and shape. Brain: No midline shift. No intracranial masses or hemorrhage. Tello-white matter interface is norm al. Skull and face: Calvarium and visualized facial bones are intact, without suspicious lesions. Sinuses: Visualized sinuses and mastoids are clear. IMPRESSION: No acute intracranial abnormality. Reviewed by: Trenton Jay on 03/04/2022 9:30 AM PDT Approved by: Trenton Jay on 03/04/2022 9:30 AM PDT Station ID: [id number]
--- NOTE | 2022-03-04 09:38 | Ultrasound Report ---
PROCEDURE: Aorta Screening INDICATIONS: VERTIGO, NICOTINE DEPENDENCE,TESTICULAR DISORDER TECHNIQUE: Real time scanning was performed of the aorta and iliac arteries, with image documentatio n. COMPARISON: None FINDINGS: Aorta: Proximal aortic diameter measures 3.0 x 2.9 cm. Mid-aorta measures 2.0 x 1.9 cm. Distal aor tic diameter is 1.8 x 1.6 cm. Mild plaque is noted distally in the aorta. Iliac arteries: Right common iliac artery measures 1.1 x 1.1 cm. Left common iliac artery measures 1.1 x 1.1 cm. IMPRESSION: No abdominal aortic aneurysm. Reviewed by: Trenton Jay on 03/04/2022 9:37 AM PDT Approved by: Trenton Jay on 03/04/2022 9:37 AM PDT Station ID: [id number]
== END 2022-03-04 07:53 | disposition home or self-care (01) ==
LOC: DI 07:52
PROVIDERS: ATTEND Registered Nurse
DX: R42 Dizziness and giddiness (principal); Z13.6 Encounter for screening for cardiovascular disorders; F17.200 Nicotine dependence, unspecified, uncomplicated; N50.9 Disorder of male genital organs, unspecified; I86.1 Scrotal varices; N43.3 Hydrocele, unspecified

== ENCOUNTER 2022-03-12 10:34 | Outpatient (CLI) | payer OTHER ==
[2022-03-12 15:09] LABS: BASOPHILS # (AUTO) 0.1 10^3/uL (0.0-0.1); BASOPHILS % (AUTO) 0.5 %; EOSINOPHILS % (AUTO) 0.4 %; HCT - HEMATOCRIT 45.4 % (42.0-52.0); HGB - HEMOGLOBIN 15.3 g/dL (14.0-18.0); LYMPHOCYTES # (AUTO) 2.3 10^3/uL (1.5-3.5); LYMPHOCYTES % (AUTO) 23.8 %; MEAN CORPUSCULAR HGB CONC 33.7 g/dL (32.0-36.0); MEAN PLATELET VOLUME 11.2 fL (7.4-11.4); MONOCYTES # (AUTO) 0.5 10^3/uL (0.0-1.0); MONOCYTES % (AUTO) 5.2 %; NEUTROPHILS # (AUTO) 6.8 10^3/uL (1.5-6.6); NEUTROPHILS % (AUTO) 69.8 %; PLT - PLATELET COUNT 225 10^3/uL (130-450); RED CELL DISTRIBUTION WIDTH 12.6 % (12.0-15.0); WHITE BLOOD COUNT 9.8 x10^3/uL (4.8-10.8)
[2022-03-12 15:13] LABS: ALBUMIN 4.4 g/dL (3.2-5.5); ALBUMIN/GLOBULIN RATIO 1.7 (1.0-2.2); ALKALINE PHOSPHATASE 66 IU/L (42-121); ALT ALANINE AMINOTRANSFERASE 16 IU/L (10-60); AST ASPARTATE AMINOTRANSFERASE 20 IU/L (10-42); BILIRUBIN,TOTAL 1.1 mg/dL (0.2-1.0); BUN - BLOOD UREA NITROGEN 19 mg/dL (6-20); CALCIUM 8.8 mg/dL (8.5-10.3); CARBON DIOXIDE - CO2 25 mmol/L (21-32); CHLORIDE 105 mmol/L (101-111); CHOL/HDL RATIO 3.8 (<5.0); CHOLESTEROL 206 mg/dL; GFR - MDRD 78 (>89); GLUCOSE 101 mg/dL (70-100); HDL CHOLESTEROL 54 mg/dL; LDL CHOLESTEROL,CALCULATED 137 mg/dL; LDL/HDL RATIO 2.5 (<3.6); POTASSIUM 3.9 mmol/L (3.5-5.0); SODIUM 135 mmol/L (135-145); TRIGLYCERIDES 74 mg/dL; VLDL CHOLESTEROL 15 mg/dL
[2022-03-12 23:27] LABS: CHLAMYDIA TRACHOMATIS DNA NEGATIVE (NEGATIVE); NEISSERIA GONORRHOEAE DNA NEGATIVE (NEGATIVE)
== END 2022-03-12 10:35 | disposition home or self-care (01) ==
LOC: LAB.S 10:34
PROVIDERS: ATTEND Registered Nurse
DX: E78.5 Hyperlipidemia, unspecified (principal); Z13.228 Encounter for screening for other metabolic disorders; Z12.5 Encounter for screening for malignant neoplasm of prostate; Z13.29 Encounter for screening for other suspected endocrine disorder; Z13.0 Encounter for screening for diseases of the blood and blood-forming organs and certain disorders involving the immune mechanism; N50.9 Disorder of male genital organs, unspecified
CPT/HCPCS: 36415; 80053; 80061; 83721; 84153; 84443; 85025; 87491; 87591; 87661

== ENCOUNTER 2022-07-31 07:29 | Day surgery (SDC) | payer OTHER ==
[2022-07-31] MEDS ORDERED: PROPOFOL 500 MG/50 ML 500 MG/50 ML VIAL ONE (07:49)
[2022-07-31] MEDS ORDERED: LACTATED RINGERS 1,000 ML IV ONE ×2 (07:53→09:16)
--- NOTE | 2022-07-31 08:06 | ANESTHESIA ---
Pre-Anesthesia VS, & Labs - Diagnosis screening exam - Procedure colonoscopy Vital Signs: Temp Pulse Resp BP Pulse Ox O2 Flow Rate 36 C L 72 16 150/101 H 98 07/31/22 07:45 07/31/22 07:45 07/31/22 07:45 07/31/22 07:45 07/31/22 07:45 Height: 5 ft 10 in Weight (kg): 95.3 kg Body Mass Index: 30.1 BMI Classification: Obese - NPO Last Fluid Intake: 0300 Home Medications and Allergies Home Medications: Ambulatory Orders No Known Home Medications 07/21/22 No Known Home Medications 07/21/22 Allergies/Adverse Reactions: Allergies Allergy/AdvReac Type Severity Reaction Status Date / Time No Known Drug Allergies Allergy Verified 07/31/22 07:21 Anes History & Medical History - Anesthetic History Anesthesia Complications: reports: No previous complications - Medical History Cardiovascular: reports: None Pulmonary: reports: None Gastrointestinal: reports: C.difficile, Diverticulitis Urinary: reports: None Neuro: reports: None Musculoskeletal: reports: None Endocrine/Autoimmune: reports: None Blood Disorders: reports: None Skin: reports: None Smoking Status: Current every day smoker (1/2 pack per day) Psychosocial: reports: Cannabis (weekly) History of Cancer?: No - Surgical History General: reports: Bowel surgery, Colonoscopy, Other Eyes Ears Nose Throat (EENT): reports: Tonsil/Adenoidectomy Orthopedic: reports: Arthroscopic surgery Exam General: Alert, Oriented x3, Cooperative, No acute distress Dental: WNL Mouth Openin Fingerbreadth Neck Mobility: Normal Mallampati classification: II Thyromental Distance: 4-6 cm Mental/Cognitive Status: Alert/Oriented X3, Normal for patient Plan Anesthesia Type: General, Total IV Consent for Procedure(s) Verified and Reviewed: Yes Code Status: Attempt Resuscitation ASA classification: 2-Mild systemic disease Is this case an emergency?: No
[2022-07-31] MEDS ORDERED: MIDAZOLAM 2 MG/2 ML VIAL ONE (08:20)
--- NOTE | 2022-07-31 08:36 | HISTORY & PHYSICAL EXAMINATION ---
Chief Complaint - Chief Complaint Chief Complaint: here for colon cancer screening History of Present Illness - History Obtained From Records Reviewed: yes History obtained from: pt Exam Limitations: none - History of Present Illness HPI Comment/Other: history diverticulitis and colectomy. no problems History - Past Medical History Cardiovascular: reports: None Respiratory: reports: None Neuro: reports: None Endocrine/Autoimmune: reports: None GI: reports: C.difficile, Diverticulitis : reports: None HEENT: reports: Chronic hearing loss Psych: reports: None Musculoskeletal: reports: None Derm: reports: None MRSA Hx?: No - Past Surgical History General: reports: Bowel surgery, Colonoscopy, Other Ortho: reports: Arthroscopic surgery HEENT: reports: Tonsil/Adenoidectomy - Family & Social History Family History Comment/Other: Family history is limited given the acuity of his condition but he reports no history of heart disease or cancers. Review of prior records noted that he had mentioned there was a family history of diabetes and heart disease and that his mother did have an unknown cancer. Living Situation: With family Social History Notes: He lives at home with his . He continues to smoke a pack a day and has been doing so for about 45 years. - POLST Patient has POLST: No POLST Status: Full Code Meds/Allgy - Home Medications Home Medications: Ambulatory Orders Medication Instructions Recorded Confirmed No Known Home Medications 07/21/22 07/21/22 - Allergies Allergies/Adverse Reactions: Allergies Allergy/AdvReac Type Severity Reaction Status Date / Time No Known Drug Allergies Allergy Verified 07/31/22 07:21 Review of Systems - Other Findings Other Findings: 10 pt ros as above otherwise unremarkable Exam - Vital Signs Reviewed Vital Signs: Yes Vital Signs: Vital Signs x48h Temp Pulse Resp BP Pulse Ox 07/31/22 07:45 36 C L 72 16 150/101 H 98 - Physical Exam General Appearance: positive: No acute distress Eyes Bilateral: positive: PERRL, EOMI ENT: positive: No signs of dehydration Neck: positive: No JVD Respiratory: positive: No respiratory distress, Breath sounds nml Cardiovascular: positive: Regular rate & rhythm Abdomen: positive: Non-tender, No distention Neurologic/Psychiatric: positive: Oriented x3 Conclusion/Plan - Problem List (1) Colon cancer screening Conclusion/Plan: plan colonoscopy. parq held and consent obtained
--- NOTE | 2022-07-31 09:55 | ANESTHESIA POST OP EVALUATION ---
Anesthesia Post Eval - Post Anesthesia Eval Vitals: Last Vital Signs Temp 36.5 C 07/31/22 09:21 Pulse 59 L 07/31/22 09:21 Resp 16 07/31/22 09:21 BP 94/64 07/31/22 09:21 Pulse Ox 95 07/31/22 09:21 O2 Flow Rate CV Function Including HR & BP: Stable Pain Control: Satisfactory Nausea & Vomiting: Negative Mental Status: Baseline Respiratory Status: Airway Patent Hydration Status: Satisfactory Anesthesia Complications: None
[2022-07-31 10:23] VITALS: BP 122/856
== END 2022-07-31 07:30 | disposition home or self-care (01) ==
LOC: SDS 07:29
PROVIDERS: ATTEND Surgery
PROC: 0DBN8ZZ Excision of Sigmoid Colon, Via Natural or Artificial Opening Endoscopic (ICD-10-PCS; principal; 2022-07-31 08:30)
DX: Z12.11 Encounter for screening for malignant neoplasm of colon (principal); D12.7 Benign neoplasm of rectosigmoid junction; K57.30 Diverticulosis of large intestine without perforation or abscess without bleeding; Z90.49 Acquired absence of other specified parts of digestive tract; Z87.19 Personal history of other diseases of the digestive system; F17.210 Nicotine dependence, cigarettes, uncomplicated; E66.9 Obesity, unspecified; Z68.30 Body mass index [BMI] 30.0-30.9, adult; R03.0 Elevated blood-pressure reading, without diagnosis of hypertension
CPT/HCPCS: 45380; J7120